=== PATIENT | male | born 1965 | race Caucasian/White ===

== ENCOUNTER 2016-12-01 18:01 | Emergency (ER) | payer SELFPAY ==
[2016-12-01] MEDS ORDERED: LIDOCAINE 2% VISCOUS SOLN 20 ML UDCUP PO ONE (18:45)
[2016-12-01] MEDS ORDERED: MAG HYDROX/AL HYDROX/SIMETH SUSP 30 ML UDCUP PO ONE (18:45)
[2016-12-01] MEDS ORDERED: METOCLOPRAMIDE HCL ORAL SOLN 10 MG/10 ML UDCUP PO ONE (18:45)
--- NOTE | 2016-12-01 18:52 | ER Document Report ---
ED Cardiac - General Stated Complaint: CHEST PAIN Time seen by provider: 18:48 Mode of Arrival: Medic Information source: Patient TRAVEL OUTSIDE OF THE [place] IN LAST 30 DAYS: No - HPI Patient complains to provider of: Chest pain Is the pain a: New problem Chest pain location: Other - Left anterior chest Quality of pain: Sharp, Stabbing Severity now: Mild Severity at worst: Moderate Pain level currently: 2 Chest pain precipitating factors: At Rest Positive cardiac history: No Associated symptoms: Shortness of breath Exacerbated by: Denies Relieved by: Nothing Similar symptoms previously: Yes - 2011 Recently seen / treated by doctor: No Notes: Patient is a 51-year-old male who presents to the emergency room complaining of left anterior chest wall pain that started around 1 PM while 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, he reports shortness of breath associated with it , but denies diaphoresis, no nausea or vomiting, no headache, no lightheadedness , he reports a history of a similar episode back in 2011, states he was seen at [facility] and had a cardiac catheterization that showed 30% blockage in one of his coronary arteries, he has not really followed up with anyone since that visit, does not currently take any medication on a daily basis, pain is intermittent, sharp and stabbing in nature, without any aggravating or alleviating symptoms, however when I was in the room and patient went to move as well as when he took a deep breath he reported his pain increased, he also was tender to palpate in the epigastric region on exam - Related Data Allergies/Adverse Reactions: No Known Allergies Allergy (Verified 01/06/14 23:51) Past Medical History - General Information source: Patient - Social History Smoking Status: Never Smoker Frequency of alcohol use: daily Drug Abuse: None Family History: Reviewed & Not Pertinent, Other - ASTHMA - Past Medical History Cardiac Medical History: Reports: Hx Hypertension Pulmonary Medical History: Reports: Hx Asthma, Hx COPD Psychiatric Medical History: Reports: Hx Bipolar Disorder, Hx Depression Past Surgical History: Reports: Hx Orthopedic Surgery - plate/screws in toe - Immunizations Hx Diphtheria, Pertussis, Tetanus Vaccination: Yes Review of Systems - Review of Systems Constitutional: No symptoms reported EENT: No symptoms reported Cardiovascular: See HPI Respiratory: See HPI Gastrointestinal: See HPI Genitourinary: No symptoms reported Male Genitourinary: No symptoms reported Musculoskeletal: No symptoms reported Skin: No symptoms reported Hematologic/Lymphatic: No symptoms reported Neurological/Psychological: No symptoms reported -: Yes All other systems reviewed and negative Physical Exam - Vital signs Vitals: Pulse Ox 99 12/01/16 18:10 Interpretation: Normal - General General appearance: Appears well, Alert - HEENT Head: Normocephalic, Atraumatic Eyes: Normal Pupils: PERRL - Respiratory Respiratory status: No respiratory distress Chest status: Nontender Breath sounds: Normal Chest palpation: Normal - Cardiovascular Rhythm: Regular Heart sounds: Normal auscultation Murmur: No - Abdominal Inspection: Normal Distension: No distension Bowel sounds: Normal Tenderness: Tender - Epigastric Organomegaly: No organomegaly - Back Back: Normal, Nontender - Extremities General upper extremity: Normal inspection, Nontender, Normal color, Normal ROM , Normal temperature General lower extremity: Normal inspection, Nontender, Normal color, Normal ROM , Normal temperature, Normal weight bearing. No: Emi's sign - Neurological Neuro grossly intact: Yes Cognition: Normal Orientation: AAOx4 [place] Coma Scale Eye Opening: Spontaneous Cedric Coma Scale Verbal: Oriented Cedric Coma Scale Motor: Obeys Commands [place] Coma Scale Total: 15 Speech: Normal Motor strength normal: LUE, RUE, LLE, RLE Sensory: Normal - Psychological Associated symptoms: Normal affect, Normal mood - Skin Skin Temperature: Warm Skin Moisture: Dry Skin Color: Normal Course - Re-evaluation Re-evalutation: 12/01/16 22:31 Patient resting comfortably on stretcher, reports feeling much better, symptoms are resolved after receiving GI cocktail, epigastric tenderness is resolved as well, cardiac enzymes 2 are negative, remainder of workup was unremarkable, patient will be discharged with instructions for follow-up, he was advised to take a daily baby aspirin, follow up with a primary care provider as well as her vice chair and return if symptoms worsen, patient acknowledges understanding and agreement with this plan - Vital Signs Vital signs: Temp Pulse Resp BP Pulse Ox 13 118/78 99 12/01/16 21:01 12/01/16 21:00 12/01/16 21:01 - Laboratory Result Diagrams: 12/01/16 18:20 12/01/16 18:20 Laboratory results interpreted by me: 12/01/16 18:20 Carbon Dioxide 20 L Calcium 8.3 L - Diagnostic Test Radiology reviewed: Image reviewed, Reports reviewed - EKG Interpretation by Me EKG shows normal: Sinus rhythm Rate: Normal Rhythm: NSR Discharge - Discharge Clinical Impression: Epigastric abdominal pain Chest pain Qualifiers: Chest pain type: unspecified Qualified Code(s): R07.9 - Chest pain, unspecified Condition: Stable Disposition: HOME, SELF-CARE Instructions: Abdominal Pain ([facility]), Chest Pain of Unclear Cause ([facility]), Family Physicians / Practices Additional Instructions: Follow up with your primary care provider and a vice chair in one to 2 days. Return to the emergency room immediately if symptoms worsen or any additional concerns. Referrals: HERNAN RUTLEDGE MD [ACTIVE STAFF] - Follow up as needed
[2016-12-01 19:46] LABS: ABSOLUTE BASOPHILS # (AUTO) 0.1 10^3/uL (0.0-0.2); ABSOLUTE EOSINOPHILS # (AUTO) 0.3 10^3/uL (0.0-0.6); ABSOLUTE LYMPHOCYTES (AUTO) 1.6 10^3/uL (0.5-4.7); ABSOLUTE MONOCYTES (AUTO) 0.6 10^3/uL (0.1-1.4); ABSOLUTE NEUT (AUTO) 2.7 10^3/uL (1.7-8.2); BASOPHILS % (AUTO) 1.8 % (0-2); EOSINOPHILS % (AUTO) 5.8 % (0-6); HEMATOCRIT 39.7 % (37.9-51.0); HEMOGLOBIN 13.7 g/dL (13.5-17.0); HGB HCT DIFFERENCE 1.4; MEAN CORPUSCULAR HEMOGLOBIN 31.2 pg (27.0-33.4); MEAN CORPUSCULAR HGB CONC 34.6 g/dL (32.0-36.0); MEAN CORPUSCULAR VOLUME 90 fl (80-97); RED CELL DISTRIBUTION WIDTH 13.1 % (11.5-14.0); SEGMENTED NEUTROPHILS % (AUTO) 51.4 % (42-78); WHITE BLOOD COUNT 5.2 10^3/uL (4.0-10.5)
[2016-12-01 19:49] LABS: ALANINE AMINOTRANSFERASE 21 U/L (21-72); ALBUMIN 3.8 g/dL (3.5-5.0); ALKALINE PHOSPHATASE 64 U/L (38-126); ANION GAP 16 (5-19); ASPARTATE AMINO TRANSFERASE 27 U/L (17-59); BILIRUBIN,DIRECT 0.2 mg/dL (0.0-0.4); BILIRUBIN,TOTAL 0.5 mg/dL (0.2-1.3); BLOOD UREA NITROGEN 11 mg/dL (7-20); CALCIUM 8.3 mg/dL (8.4-10.2); CARBON DIOXIDE 20 mmol/L (22-30); CHLORIDE 104 mmol/L (98-107); CREATINE KINASE 84 U/L (55-170); CREATININE RESULT 0.98 mg/dL (0.52-1.25); GLUCOSE 86 mg/dL (75-110); POTASSIUM 4.1 mmol/L (3.6-5.0); SODIUM 139.9 mmol/L (137-145); TOTAL PROTEIN 6.9 g/dL (6.3-8.2)
[2016-12-01 20:00] LABS: CREATINE KINASE MB 0.67 ng/mL (<4.55)
[2016-12-01 20:01] LABS: TROPONIN I < 0.012 ng/mL
[2016-12-01 22:21] LABS: CREATINE KINASE MB 0.61 ng/mL (<4.55)
[2016-12-01 22:27] LABS: TROPONIN I < 0.012 ng/mL
[2016-12-01 22:56] VITALS: BP 116/74
--- NOTE | 2016-12-02 22:51 | EKG REPORT ---
SEVERITY:- NORMAL ECG - SINUS RHYTHM : Confirmed by: Fatuma Kimble 02-Dec-2016 22:50:27
== END 2016-12-01 23:01 | disposition home or self-care (01) ==
LOC: ER 18:01
DX: R10.13 Epigastric pain (principal); R07.9 Chest pain, unspecified
CPT/HCPCS: 93005; 99285; 36415; 82553; 82550; 85025; 80053; 84484; 71020; 93010; J3490

== ENCOUNTER 2018-02-05 19:02 | Emergency (ER) | payer OTHER ==
[2018-02-05 19:19] VITALS: BP 133/74
--- NOTE | 2018-02-05 19:42 | ER Document Report ---
ED Extremity Problem, Lower - General Chief Complaint: Foot Pain Stated Complaint: FOOT PAIN Time Seen by Provider: 02/05/18 19:35 Mode of Arrival: Ambulatory Information source: Patient Notes: 52-year-old male presents to ED for complaint of pain to the left foot 1 week. He states he has a previous surgery in 2009 to this foot which is now caused his great toe to stick up in the air causing this irritation to his toe due to his work boots. He states at one point he had special boots for work but now he has to buy just plain work boots. TRAVEL OUTSIDE OF THE [place] IN LAST 30 DAYS: No - HPI Patient complains to provider of: Pain - Small open area to the top of the left foot just proximal to the great toe Location: Foot Occurred: Last week Where: Home Onset/Duration: Gradual Quality of pain: Burning Severity: Moderate Pain Level: 3 Context: Other - Small irritated open wound to left foot to the top of the foot just proximal to the great toe Recent injury: No Associated symptoms: Painful ambulation Exacerbated by: Nothing Relieved by: Nothing - Related Data Allergies/Adverse Reactions: No Known Allergies Allergy (Verified 02/05/18 19:05) Past Medical History - General Information source: Patient - Social History Smoking Status: Never Smoker Cigarette use (# per day): No Chew tobacco use (# tins/day): No Smoking Education Provided: No Family History: Reviewed & Not Pertinent, Other - ASTHMA Patient has suicidal ideation: No Patient has homicidal ideation: No - Past Medical History Cardiac Medical History: Reports: Hx Hypertension Pulmonary Medical History: Reports: Hx Asthma, Hx COPD EENT Medical History: Reports: None Neurological Medical History: Reports: None Endocrine Medical History: Reports: None Renal/ Medical History: Reports: None Malignancy Medical History: Reports None GI Medical History: Reports: None Musculoskeltal Medical History: Reports Hx Musculoskeletal Trauma Skin Medical History: Reports None Psychiatric Medical History: Reports: Hx Bipolar Disorder, Hx Depression Traumatic Medical History: Reports: None Infectious Medical History: Reports: None Past Surgical History: Reports: Hx Orthopedic Surgery - plate/screws in toe - Immunizations Hx Diphtheria, Pertussis, Tetanus Vaccination: Yes Review of Systems - Review of Systems Constitutional: No symptoms reported EENT: No symptoms reported Cardiovascular: No symptoms reported Respiratory: No symptoms reported Gastrointestinal: No symptoms reported Genitourinary: No symptoms reported Male Genitourinary: No symptoms reported Musculoskeletal: No symptoms reported Skin: Other - Open sore to the top of the left foot just proximal to the great toe Hematologic/Lymphatic: No symptoms reported Neurological/Psychological: No symptoms reported -: Yes All other systems reviewed and negative Physical Exam - Vital signs Vitals: Temp Pulse Resp BP Pulse Ox 98.6 F 96 20 133/74 H 96 02/05/18 19:17 02/05/18 19:17 02/05/18 19:17 02/05/18 19:17 02/05/18 19:17 Interpretation: Normal - General General appearance: Appears well, Alert - HEENT Head: Normocephalic, Atraumatic Eyes: Normal Pupils: PERRL - Respiratory Respiratory status: No respiratory distress Chest status: Nontender Breath sounds: Normal Chest palpation: Normal - Cardiovascular Rhythm: Regular Heart sounds: Normal auscultation Murmur: No - Abdominal Inspection: Normal Distension: No distension Bowel sounds: Normal Tenderness: Nontender Organomegaly: No organomegaly - Back Back: Normal, Nontender - Extremities General upper extremity: Normal inspection, Nontender, Normal color, Normal ROM , Normal temperature General lower extremity: Normal inspection, Nontender, Normal color, Normal ROM , Normal temperature, Normal weight bearing. No: Emi's sign - Neurological Neuro grossly intact: Yes Cognition: Normal Orientation: AAOx4 Cedric Coma Scale Eye Opening: Spontaneous [place] Coma Scale Verbal: Oriented Cedric Coma Scale Motor: Obeys Commands [place] Coma Scale Total: 15 Speech: Normal Motor strength normal: LUE, RUE, LLE, RLE Sensory: Normal - Psychological Associated symptoms: Normal affect, Normal mood - Skin Skin Temperature: Warm Skin Moisture: Dry Skin Color: Normal Location of irregularity: Extremities - Top of the left foot just proximal to the great toe small (1X2cm) open wound over his previous surgical scar minimal redness to the area Course - Re-evaluation Re-evalutation: 02/05/18 20:22 Chest x-ray with patient and patient was given a report of the x-ray to follow- up with his primary doctor. Patient was instructed in wound care to the small open sore to the top of his foot. Patient was instructed after the wound was he had to please put Band-Aids over the area to prevent further irritation to this thin skin. Patient verbalized understanding of instructions for skin care and instructions to follow-up with his primary doctor. - Vital Signs Vital signs: Temp Pulse Resp BP Pulse Ox 98.6 F 96 20 133/74 H 96 02/05/18 19:17 02/05/18 19:17 02/05/18 19:17 02/05/18 19:17 02/05/18 19:17 - Diagnostic Test Radiology reviewed: Image reviewed, Reports reviewed Discharge - Discharge Clinical Impression: Open wound top left foot Condition: Stable Disposition: HOME, SELF-CARE Instructions: Family Physicians / Practices Additional Instructions: He was seen today for small open wound to the top of the left foot just proximal to the great toe. We will need to clean this wound 3 times a day with the soap and water rinse well pat dry and apply the Bactroban ointment and a Band-Aid. After the wound has healed please cover the area with a Band-Aid to protect the skin from your boot Bactroban Ointment Bactroban is very effective against the germs that cause infection within the skin. It's useful for impetigo and other superficial infections. Deeper infections require antibiotics by mouth or by shot. Apply the medicine three times a day for one week, or longer if your doctor has advised it. Stop the medicine and call your doctor if you develop large blisters, severe itching, increasing pain, swelling, fever, or spreading redness. SOAP CLEANSING: Gently wash the wound daily using a mild soap (like Ivory, Phisoderm, Neutrogena). Use warm water, rubbing gently until all debris, ooze, and crusting have been washed from the wound. Allow to dry briefly (about 10 minutes) after cleaning. Repeat this cleansing at least three times a day for the first two days and then once or twice a day. FOLLOW-UP CARE: If you have been referred to a physician for follow-up care, call the physician s office for an appointment as you were instructed or within the next two days. If you experience worsening or a significant change in your symptoms, notify the physician immediately or return to the Emergency Department at any time for re-evaluation. Forms: Elevated Blood Pressure
[2018-02-05] MEDS ORDERED: MUPIROCIN 2% OINTMENT 22 GM TP ONE (19:44)
--- NOTE | 2018-02-05 20:09 | RADIOLOGY REPORT (SQ) ---
EXAM DESCRIPTION: FOOT LEFT COMPLETE COMPLETED DATE/TIME: 02/05/2018 7:55 pm REASON FOR STUDY: pain and ulcer to top of left foot at scar COMPARISON: None. NUMBER OF VIEWS: Three views. TECHNIQUE: AP, lateral and oblique radiographic images acquired of the left foot. LIMITATIONS: None. FINDINGS: MINERALIZATION: Normal. BONES: No acute fracture or dislocation. No worrisome bone lesions. No evidence of osteomyelitis. JOINTS: No effusions. SOFT TISSUES: No soft tissue swelling. No foreign body. OTHER: The patient's N arthrodesis of the 1st metatarsal-phalangeal joint. There is a dorsal plate s ecured by multiple screws. IMPRESSION: Surgical changes. No evidence of osteomyelitis. TECHNICAL DOCUMENTATION: JOB ID: [id number] [employer]- All Rights Reserved Reading location - IP/workstation name: [email or web address]
== END 2018-02-05 20:25 | disposition home or self-care (01) ==
LOC: ER 19:02
DX: S91.302A Unspecified open wound, left foot, initial encounter (principal); M79.672 Pain in left foot; X58.XXXA Exposure to other specified factors, initial encounter; Z98.890 Other specified postprocedural states; I10 Essential (primary) hypertension; J44.9 Chronic obstructive pulmonary disease, unspecified
CPT/HCPCS: 99283; 73630; J3490

== ENCOUNTER 2018-03-18 01:51 | Emergency (ER) | payer BC, OTHER ==
[2018-03-18] MEDS ORDERED: PREDNISONE 20 MG TABLET PO ONE (03:12)
--- NOTE | 2018-03-18 03:19 | ER Document Report ---
HPI - HPI Patient complains to provider of: skin rash, bee sting Pain Level: 3 Context: Patient is a 52-year-old male who comes to the emergency department for chief complaint of a rash that has been present for about 2 weeks, he also complains of being stung by a bee on the right forearm with some swelling earlier today. He denies any new rash otherwise, denies difficulty swallowing or breathing, denies swelling of any other areas. He has not had a similar rash in the past. 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 He states the rash is very itchy and keeps him up at night. Rashes over both arms, legs, over the buttocks, and also slightly over the trunk and back. He denies any fever or chills, nausea vomiting, or any other symptoms. He is not on any medications. His tetanus is up-to-date reportedly. - REPRODUCTIVE Reproductive: DENIES: : Past Medical History - General Information source: Patient - Social History Smoking Status: Current Every Day Smoker Drug Abuse: None Lives with: Family Family History: Reviewed & Not Pertinent, Other - ASTHMA - Past Medical History Cardiac Medical History: Reports: Hx Hypertension Pulmonary Medical History: Reports: Hx Asthma, Hx COPD Renal/ Medical History: Denies: Hx Peritoneal Dialysis Musculoskeletal Medical History: Reports Hx Musculoskeletal Trauma Psychiatric Medical History: Reports: Hx Bipolar Disorder, Hx Depression Past Surgical History: Reports: Hx Orthopedic Surgery - plate/screws in toe - Immunizations Hx Diphtheria, Pertussis, Tetanus Vaccination: Yes Vertical Provider Document - CONSTITUTIONAL General Appearance: WD/WN, No Apparent Distress - INFECTION CONTROL TRAVEL OUTSIDE OF THE [place] IN LAST 30 DAYS: No - HEENT HEENT: Atraumatic, Normocephalic - NECK Neck: Normal Inspection - RESPIRATORY Respiratory: Breath Sounds Normal, No Respiratory Distress - CARDIOVASCULAR Cardiovascular: Regular Rate, Regular Rhythm - GI/ABDOMEN Gastrointestinal: Abdomen Soft, Abdomen Non-Tender - BACK Back: Normal Inspection - MUSCULOSKELETAL/EXTREMETIES Musculoskeletal/Extremeties: Tender - There is minimal soft tissue swelling and mild erythema over the right proximal forearm over the extensor aspect, no severe erythema, tenderness, abnormal heat, bleeding, induration, fluctuance. Normal distal neurovascular exam. Normal range of motion of the wrist and elbow. - NEURO Level of Consciousness: Awake, Alert, Appropriate - DERM Integumentary: Warm, Dry, Rash - There are multiple excoriated areas which appear to have been previous vesicles with some dryness around the area over the arms, legs, back, trunk, and buttocks. None on the face. No bulla, pustules, induration, fluctuance. Course - Re-evaluation Re-evalutation: Mild soft tissue swelling associated with the bee sting. No evidence of anaphylaxis. No neurovascular deficits. Patient does have a widespread rash which is suggestive of eczema, excoriated very much but still no evidence of cellulitis on my examination. No evidence of necrotizing fasciitis either. No areas are painful. Patient continues to report itchiness. Denying any possibility of that being an insect bite. Appears to be some type of eczema but this is not definite. No evidence of secondary infection at this time. Discussed with patient. Discussed dermatology follow-up, patient will be treated with an extended course of prednisone, discussed return precautions, patient states understanding and agreement with plan. - Vital Signs Vital signs: Temp Pulse Resp BP Pulse Ox 98.3 F 74 16 146/77 H 100 03/18/18 01:55 03/18/18 01:55 03/18/18 01:55 03/18/18 01:55 03/18/18 01:55 Discharge - Discharge Clinical Impression: Skin rash Bee sting Qualifiers: Encounter type: initial encounter Injury intent: accidental or unintentional Qualified Code(s): T63.441A - Toxic effect of venom of bees, accidental ( unintentional), initial encounter Condition: Stable Disposition: HOME, SELF-CARE Additional Instructions: Your widespread rash is most consistent with an autoimmune reaction to something. This could be insect bites but less likely. Take prescribed medications as directed. Try not to scratch, if he scratched open skin clean the area with soap and water and then apply topical antibiotic. Follow-up with dermatology referral if symptoms continue. Return if you worsen including developing or spreading redness, fever, severe swelling, or any other concerning or worsening symptoms. Prescriptions: Cetirizine HCl [All Day Allergy] 10 mg PO DAILY #30 tablet Prednisone 10 mg PO ASDIR PRN #49 tablet PRN Reason: Referrals: DAVE KAUR DO [ACTIVE STAFF] - Follow up as needed
[2018-03-18 03:38] VITALS: BP 129/75
== END 2018-03-18 03:34 | disposition home or self-care (01) ==
LOC: ER 01:51
DX: R21 Rash and other nonspecific skin eruption (principal); L29.8 Other pruritus; T63.441A Toxic effect of venom of bees, accidental (unintentional), initial encounter; F17.200 Nicotine dependence, unspecified, uncomplicated; I10 Essential (primary) hypertension; J44.9 Chronic obstructive pulmonary disease, unspecified
CPT/HCPCS: 99282; J7512

== ENCOUNTER 2018-07-10 21:22 | Observation (INO) | payer OTHER ==
[2018-07-10 21:59] LABS: ABSOLUTE EOSINOPHILS # (AUTO) 0.4 10^3/uL (0.0-0.6); ABSOLUTE LYMPHOCYTES (AUTO) 3.1 10^3/uL (0.5-4.7); ABSOLUTE MONOCYTES (AUTO) 0.8 10^3/uL (0.1-1.4); ABSOLUTE NEUT (AUTO) 2.6 10^3/uL (1.7-8.2); BASOPHILS % (AUTO) 0.6 % (0-2); EOSINOPHILS % (AUTO) 5.8 % (0-6); HEMATOCRIT 43.3 % (37.9-51.0); HEMOGLOBIN 15.3 g/dL (13.5-17.0); LYMPHOCYTES % (AUTO) 44.4 % (13-45); MEAN CORPUSCULAR HEMOGLOBIN 31.1 pg (27.0-33.4); MEAN CORPUSCULAR HGB CONC 35.3 g/dL (32.0-36.0); MEAN CORPUSCULAR VOLUME 88 fl (80-97); MONOCYTES % (AUTO) 11.6 % (3-13); PLATELET COUNT 208 10^3/uL (150-450); RED CELL DISTRIBUTION WIDTH 12.9 % (11.5-14.0); SEGMENTED NEUTROPHILS % (AUTO) 37.6 % (42-78); TOTAL CELLS COUNTED % (AUTO) 100 %
[2018-07-10] MEDS ORDERED: MORPHINE SULFATE 10 MG/ML INJ IV ONE (22:05)
[2018-07-10 22:13] LABS: ALANINE AMINOTRANSFERASE 23 U/L (21-72); ALBUMIN 4.2 g/dL (3.5-5.0); ALKALINE PHOSPHATASE 100 U/L (38-126); ANION GAP 14 (5-19); ASPARTATE AMINO TRANSFERASE 27 U/L (17-59); BILIRUBIN,DIRECT 0.3 mg/dL (0.0-0.4); BILIRUBIN,TOTAL 0.9 mg/dL (0.2-1.3); BLOOD UREA NITROGEN 7 mg/dL (7-20); CALCIUM 9.4 mg/dL (8.4-10.2); CARBON DIOXIDE 26 mmol/L (22-30); CHLORIDE 100 mmol/L (98-107); GLUCOSE 97 mg/dL (75-110); LIPASE 40.3 U/L (23-300); POTASSIUM 4.3 mmol/L (3.6-5.0); SODIUM 139.5 mmol/L (137-145); TOTAL PROTEIN 7.9 g/dL (6.3-8.2)
--- NOTE | 2018-07-10 22:35 | ER Document Report ---
ED General - General Chief Complaint: Abdominal Pain Stated Complaint: ABDOMINAL PAIN Time Seen by Provider: 07/10/18 21:57 Notes: Patient is a pleasant 52-year-old male who presents with complaint of abdominal pain. Pain is in the left lower quadrant. It does radiate some into the flank. No fevers. No vomiting. No diarrhea. Pain started this morning. Never had anything like this before. He does not take any medications. Does not see a doctor on a regular basis. He is a non-smoker. He does drink alcohol on a daily basis. He denies ever having alcohol withdrawal. TRAVEL OUTSIDE OF THE [place] IN LAST 30 DAYS: No - Related Data Allergies/Adverse Reactions: No Known Allergies Allergy (Verified 02/05/18 19:05) Past Medical History - Social History Smoking Status: Never Smoker Frequency of alcohol use: Heavy Drug Abuse: None Family History: Reviewed & Not Pertinent, Other - ASTHMA - Past Medical History Cardiac Medical History: Reports: Hx Hypertension Pulmonary Medical History: Reports: Hx Asthma, Hx COPD Renal/ Medical History: Denies: Hx Peritoneal Dialysis Musculoskeletal Medical History: Reports Hx Musculoskeletal Trauma Psychiatric Medical History: Reports: Hx Bipolar Disorder, Hx Depression Past Surgical History: Reports: Hx Orthopedic Surgery - plate/screws in toe - Immunizations Hx Diphtheria, Pertussis, Tetanus Vaccination: Yes Review of Systems - Review of Systems Notes: My Normal Review Basic REVIEW OF SYSTEMS: CONSTITUTIONAL : Denies fever, chills, or sweats. Denies recent illness. CARDIOVASCULAR: Denies chest pain. RESPIRATORY: Denies cough, cold, or chest congestion. Denies shortness of breath, difficulty breathing, or wheezing. GASTROINTESTINAL: Left lower quadrant abdominal pain.. Denies nausea, vomiting , or diarrhea. GENITOURINARY: Denies difficulty urinating, painful urination, burning, frequency, or blood in urine. MUSCULOSKELETAL: Denies neck or back pain or joint pain or swelling. SKIN: Denies rash or skin lesions. NEUROLOGICAL: Denies altered mental status or loss of consciousness. Denies headache. Denies weakness or paralysis or loss of use of either side. Denies problems with gait or speech. Denies sensory or motor loss. ALL OTHER SYSTEMS REVIEWED AND NEGATIVE. Physical Exam - Vital signs Vitals: Temp Pulse Resp BP Pulse Ox 97.8 F 91 20 134/87 H 97 07/10/18 21:27 07/10/18 21:27 07/10/18 21:27 07/10/18 21:27 07/10/18 21:27 - Notes Notes: General Appearance: Well nourished, alert, cooperative, no acute distress, mild to moderate abdominal discomfort. Vitals: reviewed, See vital signs table. Head: no swelling or tenderness to the head Eyes: PERRL, EOMI, Conjuctiva clear Mouth: No decreasd moisture Throat: No tonsillar inflammation, No airway obstruction, No lymphadenopathy Neck: Supple, no neck tenderness, No thyromegaly Lungs: No wheezing, No rales, No rhonci, No accessory muscle use, good air exchange bilaterally. Heart: Normal rate, Regular rythm, No murmur, no rub Abdomen: Normal BS, soft, No rigidity, moderate left lower quadrant tenderness. Left lower quadrant of abdomen is nontender. Patient has worsening pain when he tries to lay down. No rebound. Mild guarding to the left lower quadrant. Extremities: good pulses in all extremities, no swelling or tenderness in the extremities, no edema. Skin: warm, dry, appropriate color, no rash Neuro: speech clear, oriented x 3, normal affect, responds appropriately to questions. Course - Re-evaluation Re-evalutation: 07/11/18 01:01 Patient is a very large adrenal mass in the left side. I did speak with Dr. Yoo, oncologist, who said being patient has pain and is difficult to lay back due to pain he agrees with admission to admit patient for pain control and to help stage the patient's tumor and begin treatment. Patient is agreeable with this plan. I did speak with Dr. Lund, hospitalist, who agrees to evaluate the patient for admission. Dictation of this chart was performed using voice recognition software; therefore, there may be some unintended grammatical errors. - Vital Signs Vital signs: Temp Pulse Resp BP Pulse Ox 97.8 F 91 20 134/87 H 97 07/10/18 21:27 07/10/18 21:27 07/10/18 21:27 07/10/18 21:27 07/10/18 21:27 - Laboratory Result Diagrams: 07/10/18 21:45 07/10/18 21:45 Laboratory results interpreted by me: 07/10/18 21:45 Seg Neutrophils % 37.6 L Discharge - Discharge Clinical Impression: Adrenal mass, left Condition: Stable Disposition: ADMITTED OBSERVATION Admitting Provider: Hospitalist Unit Admitted: Medical Floor
[2018-07-10 22:53] LABS: APPEARANCE,URINE CLEAR; BILIRUBIN,URINE NEGATIVE (NEGATIVE); COLOR,URINE STRAW; GLUCOSE, URINE NEGATIVE (NEGATIVE); KETONES,URINE NEGATIVE (NEGATIVE); LEUKOCYTE ESTERASE,URINE NEGATIVE (NEGATIVE); NITRITE,URINE NEGATIVE (NEGATIVE); PROTEIN,URINE NEGATIVE (NEGATIVE); URINE SPECIFIC GRAVITY 1.002; UROBILINOGEN,URINE NEGATIVE mg/dL (<2.0)
[2018-07-10] MEDS ORDERED: NORMAL SALINE 1000 ML 1,000 ML IV ONE (23:21)
--- NOTE | 2018-07-11 00:34 | RADIOLOGY REPORT (SQ) ---
CT ABDOMEN PELVIS WITH IV CONTRAST HISTORY: LLQ abdominal pain. COMPARISON: None. TECHNIQUE: CT scan of the abdomen and pelvis with IV contrast. This exam was performed according to our departmental dose-optimization program, which includes automated exposure control, adjustment of the mA and/or kV according to patient size and/or use of iterative reconstruction technique. FINDINGS: The lung bases are clear. No pleural or pericardial effusions. The spleen is enlarged measuring 17.3 cm. The liver and pancreas are unremarkable. No gallstones by CT criteria. No biliary ductal dilatation is seen. There is a 12.9 x 7.1 x 12.3 cm well-circumscribed predominantly fatty lesion with internal areas of stranding and soft tissue in the region of the left adrenal gland. There is a similar appearing lesion measuring 3.4 x 2.4 cm arising from the right adrenal gland. The right kidney is unremarkable. The left kidney is inferiorly displaced by the aforementioned suprarenal mass. No ureteral or bladder stones are seen. The pelvic organs are unremarkable. The distal thoracic esophagus and stomach are unremarkable. No small bowel obstruction. The appendix is not visualized. No pericolonic inflammatory stranding is seen. There are prominent bilateral external iliac chain lymph nodes, measuring up to 1.9 cm in short axis. The abdominal aorta and IVC are normal caliber. There are degenerative changes of the spine. IMPRESSION: 1. Giant left-sided adrenal mass measuring up to 13 cm, containing predominantly fat with internal stranding and soft tissue components. This may represent either a very large adrenal myelolipoma versus a retroperitoneal liposarcoma. Additionally, there is a similar appearing mass but much smaller in the right adrenal gland (measuring 3.4 cm). Given the bilaterality, this favors multiple adrenal myelolipomas, although tissue pathology is suggested for confirmation. 2. Splenomegaly along with prominent bilateral iliac chain lymph nodes, which is nonspecific but may represent sequela of infection or inflammation of unknown etiology.
[2018-07-11] MEDS ORDERED: TRAMADOL HCL 50 MG TABLET PO PRN (00:55)
[2018-07-11] MEDS ORDERED: MAG HYDROX/AL HYDROX/SIMETH SUSP 30 ML UDCUP PO PRN (00:56)
[2018-07-11] MEDS ORDERED: ACETAMINOPHEN 325 MG TABLET PO PRN (00:56)
[2018-07-11 02:27] LABS: INTERNATIONAL RATION (INR) 0.88; PROTHROMBIN TIME 12.4 SEC (11.4-15.4)
[2018-07-11] MEDS: HEPARIN SOD (PORCINE) 5,000 UNIT/ML 1 ML SYRINGE SUBCUT SCH ×3 (05:08→22:28)
[2018-07-11] MEDS ORDERED: LORAZEPAM 1 MG TABLET PO PRN (05:45)
[2018-07-11] MEDS ORDERED: HYDROXYZINE HCL 10 MG TABLET PO PRN (06:00)
--- NOTE | 2018-07-11 06:00 | PDOC H&P ---
History of Present Illness Admission Date/PCP: 07/11/18 01:37 Patient complains of: Left upper quadrant abdominal and flank pain History of Present Illness: MELITA SETH is a 52 year old male with past medical history of alcohol dependence who presents with 24 hours of left upper quadrant and flank pain. Workup reveals 13 cm left-sided adrenal mass. His pain is not associated with palpitations, nausea vomiting diaphoresis or chest pain. He denies weight loss , episodes insomnia, tachycardia, of heat intolerance or diarrhea. He complains of diffuse itching. Denies exposure to carcinogens, denies family history of malignancy. He is referred to the hospitalist for admission. Past Medical History Cardiac Medical History: Reports: Hypertension Pulmonary Medical History: Reports: Asthma Psychiatric Medical History: Reports: Bipolar Disorder, Depression Past Surgical History Past Surgical History: Reports: Orthopedic Surgery - plate/screws in toe Social History Information Source: Patient, [facility] Records Smoking Status: Never Smoker Frequency of Alcohol Use: Heavy - Denies history of blackout, seizure or withdrawal symptoms Hx Recreational Drug Use: No Drugs: None Hx Prescription Drug Abuse: No - Advance Directive Resuscitation Status: Full Code Family History Family History: Other - ASTHMA Parental Family History Reviewed: Yes Children Family History Reviewed: Yes Sibling(s) Family History Reviewed.: Yes Medication/Allergy Home Medications: Hydrocodone/Acetaminophen [[place] 5-325 Tablet] 1 each PO Q4 PRN #20 tablet 01/07 Cyclobenzaprine HCl [Flexeril 10 Mg Tablet] 10 mg PO TIDP PRN #20 tablet Tramadol HCl [Ultram 50 mg Tablet] 50 mg PO ASDIR PRN #20 tablet 07/25/14 Cetirizine HCl [All Day Allergy] 10 mg PO DAILY #30 tablet 03/18/18 Prednisone 10 mg PO ASDIR PRN #49 tablet 03/18/18 Allergies/Adverse Reactions: No Known Allergies Allergy (Verified 02/05/18 19:05) Review of Systems Constitutional: PRESENT: as per HPI. ABSENT: anorexia, chills, fatigue, fever(s ), headache(s), night sweats, weakness Eyes: ABSENT: visual disturbances Ears: ABSENT: hearing changes Cardiovascular: ABSENT: chest pain, dyspnea on exertion, edema, orthropnea, palpitations Respiratory: ABSENT: cough, hemoptysis Gastrointestinal: ABSENT: abdominal pain, constipation, diarrhea, hematemesis, hematochezia, nausea, vomiting Genitourinary: ABSENT: dysuria, hematuria Musculoskeletal: ABSENT: joint swelling Integumentary: PRESENT: as per HPI, erythema, lesions, pruritus, rash Neurological: ABSENT: abnormal gait, abnormal speech, confusion, dizziness, focal weakness, syncope Psychiatric: ABSENT: anxiety, depression, homidical ideation, suicidal ideation Endocrine: ABSENT: cold intolerance, heat intolerance, polydipsia, polyuria Hematologic/Lymphatic: ABSENT: easy bleeding, easy bruising Physical Exam Vital Signs: Temp Pulse Resp BP Pulse Ox 97.9 F 88 18 142/74 H 98 07/11/18 04:42 07/11/18 04:42 07/11/18 04:42 07/11/18 04:42 07/11/18 04:42 Intake & Output 07/09/18 07/10/18 07/11/18 11:59 11:59 11:59 Intake Total 1000 Balance 1000 Weight 54.6 kg General appearance: PRESENT: no acute distress, well-developed, well-nourished Head exam: PRESENT: atraumatic, normocephalic Eye exam: PRESENT: conjunctiva pink, EOMI, PERRLA. ABSENT: scleral icterus Ear exam: PRESENT: normal external ear exam Mouth exam: PRESENT: moist, tongue midline Neck exam: ABSENT: carotid bruit, JVD, lymphadenopathy, thyromegaly Respiratory exam: PRESENT: clear to auscultation ramila. ABSENT: rales, rhonchi, wheezes Cardiovascular exam: PRESENT: RRR. ABSENT: diastolic murmur, rubs, systolic murmur Pulses: PRESENT: normal dorsalis pedis pul Vascular exam: PRESENT: normal capillary refill GI/Abdominal exam: PRESENT: normal bowel sounds, soft, tenderness - Tender left upper quadrant mass. ABSENT: ascites, diminished bowel sounds, distended, guarding, mass, organolmegaly, rebound Rectal exam: PRESENT: deferred Extremities exam: PRESENT: full ROM. ABSENT: calf tenderness, clubbing, pedal edema Neurological exam: PRESENT: alert, awake, oriented to person, oriented to place , oriented to time, oriented to situation, CN II-XII grossly intact. ABSENT: motor sensory deficit Psychiatric exam: PRESENT: appropriate affect, normal mood. ABSENT: homicidal ideation, suicidal ideation Skin exam: PRESENT: dry, erythema, intact, rash - Patient suffers from pruritus with excoriation of the abdominal wall, back arms and legs, warm. ABSENT: cyanosis Results Impressions: Abdomen/Pelvis CT 07/10/18 23:20 IMPRESSION: 1. Giant left-sided adrenal mass measuring up to 13 cm, containing predominantly fat with internal stranding and soft tissue components. This may represent either a very large adrenal myelolipoma versus a retroperitoneal liposarcoma. Additionally, there is a similar appearing mass but much smaller in the right adrenal gland (measuring 3.4 cm). Given the bilaterality, this favors multiple adrenal myelolipomas, although tissue pathology is suggested for confirmation. 2. Splenomegaly along with prominent bilateral iliac chain lymph nodes, which is nonspecific but may represent sequela of infection or inflammation of unknown etiology. Assessment & Plan - Diagnosis (1) Adrenal mass, left Is this a current diagnosis for this admission?: Yes Plan: Follow-up cortisol, urine metanephrines, oncology consult (2) Pruritus Is this a current diagnosis for this admission?: Yes Plan: Likely secondary to #1, symptomatic management (3) Alcohol dependence Is this a current diagnosis for this admission?: Yes Plan: Thiamine, folate and Ativan as needed - Time Time Spent: 30 to 50 Minutes - Inpatient Certification Medical Necessity: Need Close Monitoring Due to Risk of Patient Decompensation
[2018-07-11] MEDS ORDERED: HYDROCODONE/ACETAMINOPHEN 5-325 MG TABLET ONE (08:11)
--- NOTE | 2018-07-11 08:43 | PDOC CONSULTATION ---
Consultation Consult Date: 07/11/18 Attending physician:: CHARLES PEREIRA Consult reason:: Newly noted adrenal lesions History of Present Illness Admission Date/PCP: 07/11/18 01:37 Patient complains of: Severe left-sided abdominal pain History of Present Illness: MELITA SETH is a 52 year old male with known history of asthma and hypertension but generally has been fairly healthy, comes in with a 3-day history of increasing left upper quadrant pain, extending to the left flank. It became severe enough that he came to the ED for pain control. Of note he also was having a 3-week history of a remitting relapsing rash, on the skin that has resulted in recurrent open sores. He denies any weight loss, no fevers chills night sweats, he is not having any bowel changes, no hematuria or changes in urination. He is not having pain anywhere else. He had CT of the abdomen and pelvis done with IV contrast only, this indicated large bilateral adrenal lesions, the left was 12 x 7 x 12 cm, the right was 3 x 2 cm, there also is bilateral external iliac adenopathy up to 1.9 cm, there is also splenomegaly. Of note he does have alcohol history, he drinks 4-5 beers per day. However on the imaging, the liver looks normal. Past Medical History Cardiac Medical History: Reports: Hypertension Pulmonary Medical History: Reports: Asthma, Chronic Obstructive Pulmonary Disease (COPD) Psychiatric Medical History: Reports: Bipolar Disorder, Depression Past Surgical History Past Surgical History: Reports: Orthopedic Surgery - plate/screws in toe Social History Smoking Status: Never Smoker Frequency of Alcohol Use: Heavy - Denies history of blackout, seizure or withdrawal symptoms Hx Recreational Drug Use: No Drugs: None Hx Prescription Drug Abuse: No - Advance Directive Resuscitation Status: Full Code Family History Family History: Other - ASTHMA, no familial cancer syndromes Parental Family History Reviewed: Yes Children Family History Reviewed: Yes Sibling(s) Family History Reviewed.: Yes Medication/Allergy Allergies/Adverse Reactions: No Known Allergies Allergy (Verified 02/05/18 19:05) Review of Systems Constitutional: PRESENT: weakness Ears: ABSENT: hearing changes Cardiovascular: ABSENT: chest pain, dyspnea on exertion, edema, orthropnea, palpitations Gastrointestinal: PRESENT: abdominal pain Musculoskeletal: ABSENT: joint swelling Neurological: ABSENT: abnormal gait, abnormal speech, confusion, dizziness, focal weakness, syncope Psychiatric: ABSENT: anxiety, depression, homidical ideation, suicidal ideation Endocrine: ABSENT: cold intolerance, heat intolerance, polydipsia, polyuria Hematologic/Lymphatic: ABSENT: easy bleeding, easy bruising Physical Exam Vital Signs: Temp Pulse Resp BP Pulse Ox 98.0 F 77 12 120/57 L 99 07/11/18 07:38 07/11/18 07:38 07/11/18 07:38 07/11/18 07:38 07/11/18 07:38 Intake & Output 07/10/18 07/11/18 07/12/18 06:59 06:59 06:59 Intake Total 1000 Balance 1000 Weight 53.6 kg General appearance: PRESENT: no acute distress, well-developed, well-nourished Head exam: PRESENT: atraumatic, normocephalic Eye exam: PRESENT: conjunctiva pink, EOMI, PERRLA. ABSENT: scleral icterus Ear exam: PRESENT: normal external ear exam Mouth exam: PRESENT: moist, tongue midline Neck exam: ABSENT: carotid bruit, JVD, lymphadenopathy, thyromegaly Respiratory exam: PRESENT: clear to auscultation ramila. ABSENT: rales, rhonchi, wheezes Cardiovascular exam: PRESENT: RRR. ABSENT: diastolic murmur, rubs, systolic murmur Pulses: PRESENT: normal dorsalis pedis pul Vascular exam: PRESENT: normal capillary refill GI/Abdominal exam: PRESENT: normal bowel sounds, soft. ABSENT: distended, guarding, mass, organolmegaly, rebound, tenderness Rectal exam: PRESENT: deferred Extremities exam: PRESENT: full ROM. ABSENT: calf tenderness, clubbing, pedal edema Neurological exam: PRESENT: alert, awake, oriented to person, oriented to place , oriented to time, oriented to situation, CN II-XII grossly intact. ABSENT: motor sensory deficit Psychiatric exam: PRESENT: appropriate affect, normal mood. ABSENT: homicidal ideation, suicidal ideation Skin exam: PRESENT: dry, intact, warm. ABSENT: cyanosis, rash Results Impressions: Abdomen/Pelvis CT 07/10/18 23:20 IMPRESSION: 1. Giant left-sided adrenal mass measuring up to 13 cm, containing predominantly fat with internal stranding and soft tissue components. This may represent either a very large adrenal myelolipoma versus a retroperitoneal liposarcoma. Additionally, there is a similar appearing mass but much smaller in the right adrenal gland (measuring 3.4 cm). Given the bilaterality, this favors multiple adrenal myelolipomas, although tissue pathology is suggested for confirmation. 2. Splenomegaly along with prominent bilateral iliac chain lymph nodes, which is nonspecific but may represent sequela of infection or inflammation of unknown etiology. 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 Simpson, she does not feel that these are carcinoma like her lesions, there is appropriate fat noted in the adrenal glands, plan for CT of the chest with IV contrast as well as bone scan today. If there are no lesions noted that are more peripheral that would point to a metastatic type disease to the adrenal gland, then we will plan for PET/CT as an outpatient. Radiology here would prefer not to attempt adrenal biopsy because lipomas tend to have high risk of bleeding per radiology. (2) Neoplasm related pain Is this a current diagnosis for this admission?: Yes Plan: He does have significant pain in the left side, unsure if that is because of the enlarged left adrenal or splenomegaly both which can cause pain in that area. Regardless I will start him on oral pain medication with [place] today, if pain is well controlled over the next [address] imaging does not show anything that needs to be biopsied inpatient, then we will plan for discharge probably tomorrow with follow-up as an outpatient for PET/CT. - Time Time Spent: Greater than 70 Minutes - Inpatient Certification Based on my medical assessment, after consideration of the patient's comorbidities, presenting symptoms, or acuity I expect that the services needed warrant INPATIENT care.: Yes I certify that my determination is in accordance with my understanding of Medicare's requirements for reasonable and necessary INPATIENT services [42 CFR 412.3e].: Yes Medical Necessity: Need for Pain Control, Need for Surgery
[2018-07-11] MEDS: THIAMINE HCL 100 MG, FOLIC ACID 1 MG in NORMAL SALINE 250 ML IV SCH (09:48)
[2018-07-11] MEDS: DOCUSATE SODIUM 100 MG CAPSULE PO SCH ×2 (09:48→17:57)
--- NOTE | 2018-07-11 12:59 | RADIOLOGY REPORT (SQ) ---
EXAM DESCRIPTION: NM WHOLE BODY BONE SCAN COMPLETED DATE/TIME: 07/11/2018 12:39 pm REASON FOR STUDY: BONE METS COMPARISON: CT abdomen pelvis 07/10/2018 RADIONUCLIDE AND DOSE: 19.8 millicuries Tc99m MDP. The route of agent administration: Intravenous. ADDITIONAL DRUGS AND DOSES: None. TECHNIQUE: Routine delayed images at 3 hours post radionuclide injection acquired of the bony skelet on including anterior and posterior whole-body projections and additional focused images as needed. LIMITATIONS: None. FINDINGS: BONES: Normal visualization without areas of photopenia or increased bony uptake of radiop harmaceutical. KIDNEYS: Symmetric excretion without obstruction. OTHER: No other significant finding. IMPRESSION: NORMAL BONE SCAN. COMMENT: Quality measure 147: Current bone scan is compared with any available plain radiographs, p rior bone scans, and CT/MRI. TECHNICAL DOCUMENTATION: JOB ID: [id number] [employer]- All Rights Reserved Reading location - IP/workstation name: [email or web address]
[2018-07-11] MEDS: HYDROCODONE/ACETAMINOPHEN 5-325 MG TABLET PO PRN ×2 (14:31→20:27)
--- NOTE | 2018-07-11 16:28 | Progress Note ---
Provider Note Provider Note: patient seen on rounds this morning. admitted after midnight- please see H&P for full A&P i appreciate consult by Dr Burton, oncologist- he has ordered CT chest and bone scan to r/o malignancy. patient continues to have left flank pain- pain medications have been added to his regimen- will follow up in AM
[2018-07-12] MEDS: HYDROCODONE/ACETAMINOPHEN 5-325 MG TABLET PO PRN ×2 (03:58→11:52)
[2018-07-12] MEDS: HEPARIN SOD (PORCINE) 5,000 UNIT/ML 1 ML SYRINGE SUBCUT SCH (05:09)
--- NOTE | 2018-07-12 05:43 | RADIOLOGY REPORT (SQ) ---
CLINICAL HISTORY: LUNG CANCER COMPARISON: None. TECHNIQUE: CT CHEST WITH IV CONTRAST on 07/12/2018 5:00 AM [facility]. MIPS reconstructions were generated. This exam was performed according to our departmental dose-optimization program, which includes automated exposure control, adjustment of the mA and/or kV according to patient size and/or use of iterative reconstruction technique. MIP images were generated. FINDINGS: Thoracic aorta is normal in course and caliber without aneurysm or dissection. Pulmonary arteries are adequately opacified without acute or chronic filling defects. The heart is normal in size. There is no pericardial effusion. There are several borderline mediastinal lymph nodes with an enlarged subcarinal lymph node measuring 1.4 cm. There are multiple bilateral axillary lymph nodes measuring up to 1.5 cm on the right and 1.2 cm on the left. There is no pleural effusion, pleural thickening or pneumothorax. Central airways are patent. There is right basilar atelectasis. There is minimal left basilar atelectasis. In the upper abdomen, again noted are large fatty masses within the adrenal glands. There are no acute osseous findings. No suspicious bony lesions. IMPRESSION: Bilateral axillary as well as to a lesser degree central mediastinal adenopathy. Bilateral fat-containing adrenal masses.
[2018-07-12] MEDS: THIAMINE HCL 100 MG, FOLIC ACID 1 MG in NORMAL SALINE 250 ML IV SCH (09:19)
[2018-07-12] MEDS: DOCUSATE SODIUM 100 MG CAPSULE PO SCH (09:19)
--- NOTE | 2018-07-12 09:48 | PDOC PROGRESS REPORT ---
Subjective Progress Note for:: 07/12/18 Subjective:: Reviewed CT imaging, bone scan, bone scan is negative for disease, CT of the chest indicates nonpathologically enlarged mediastinal adenopathy, there is bilateral axillary adenopathy however, but not palpable at present. Reason For Visit: LEFT FLANK PAIN,LARGE ADRENAL MASS Physical Exam Vital Signs: Temp Pulse Resp BP Pulse Ox 97.9 F 77 14 120/54 L 100 07/12/18 07:38 07/12/18 07:38 07/12/18 07:38 07/12/18 07:38 07/12/18 07:38 Intake & Output 07/11/18 07/12/18 07/13/18 06:59 06:59 06:59 Intake Total 1000 1351.2 Output Total 975 Balance 1000 376.2 Weight 53.6 kg 53.1 kg General appearance: PRESENT: no acute distress, well-developed, well-nourished Head exam: PRESENT: atraumatic, normocephalic Eye exam: PRESENT: conjunctiva pink, EOMI, PERRLA. ABSENT: scleral icterus Ear exam: PRESENT: normal external ear exam Mouth exam: PRESENT: moist, tongue midline Neck exam: ABSENT: carotid bruit, JVD, lymphadenopathy, thyromegaly Respiratory exam: PRESENT: clear to auscultation ramila. ABSENT: rales, rhonchi, wheezes Cardiovascular exam: PRESENT: RRR. ABSENT: diastolic murmur, rubs, systolic murmur Pulses: PRESENT: normal dorsalis pedis pul Vascular exam: PRESENT: normal capillary refill GI/Abdominal exam: PRESENT: normal bowel sounds, soft. ABSENT: distended, guarding, mass, organolmegaly, rebound, tenderness Rectal exam: PRESENT: deferred Extremities exam: PRESENT: full ROM. ABSENT: calf tenderness, clubbing, pedal edema Neurological exam: PRESENT: alert, awake, oriented to person, oriented to place , oriented to time, oriented to situation, CN II-XII grossly intact. ABSENT: motor sensory deficit Psychiatric exam: PRESENT: appropriate affect, normal mood. ABSENT: homicidal ideation, suicidal ideation Skin exam: PRESENT: dry, intact, warm. ABSENT: cyanosis, rash Results Impressions: Abdomen/Pelvis CT 07/10/18 23:20 IMPRESSION: 1. Giant left-sided adrenal mass measuring up to 13 cm, containing predominantly fat with internal stranding and soft tissue components. This may represent either a very large adrenal myelolipoma versus a retroperitoneal liposarcoma. Additionally, there is a similar appearing mass but much smaller in the right adrenal gland (measuring 3.4 cm). Given the bilaterality, this favors multiple adrenal myelolipomas, although tissue pathology is suggested for confirmation. 2. Splenomegaly along with prominent bilateral iliac chain lymph nodes, which is nonspecific but may represent sequela of infection or inflammation of unknown etiology. Body Scan Nuclear Medicine 07/11/18 00:00 IMPRESSION: NORMAL BONE SCAN. Chest CT 07/12/18 05:00 IMPRESSION: Bilateral axillary as well as to a lesser degree central mediastinal adenopathy. Bilateral fat-containing adrenal masses. Assessment & Plan - Diagnosis (1) Adrenal mass, left Is this a current diagnosis for this admission?: Yes Plan: Possible that this is a benign enlargement, primary adrenal malignancy workup is pending with urine metanephrines, patient now can be discharged with follow- up in our office with PET/CT needed. If PET/CT shows PET positive areas that we can go after peripherally then we would go after that otherwise patient will need probable referral to a tertiary care center for consideration of biopsy. (2) Neoplasm related pain Is this a current diagnosis for this admission?: Yes Plan: Change from [place] to oxycodone, discussed this with hospitalist team, they will write prescription and prepare his discharge today. - Time Time Spent with patient: 35 or more minutes Anticipated discharge: Home Within: within 24 hours
--- NOTE | 2018-07-12 11:14 | PDOC DISCHARGE SUMMARY ---
General - Admit/Disc Date/PCP Admission Date/Primary Care Provider: 07/11/18 01:37 Discharge Date: 07/12/18 - seen on rounds this morning - Discharge Diagnosis (1) Mediastinal adenopathy Is this a current diagnosis for this admission?: Yes (2) Adrenal mass, left Is this a current diagnosis for this admission?: Yes (3) Neoplasm related pain Is this a current diagnosis for this admission?: Yes - Additional Information Resuscitation Status: Full Code Prescriptions: Folic Acid [Folvite 1 mg Tablet] 1 mg PO DAILY #30 tablet Hydrocodone/Acetaminophen [[place] 5-325 mg Tablet] 1 tab PO Q4HP PRN #20 tablet PRN Reason: Thiamine HCl [Thiamine 100 mg Tablet] 100 mg PO DAILY #30 tablet Home Medications: Folic Acid [Folvite 1 mg Tablet] 1 mg PO DAILY #30 tablet 07/12/18 Hydrocodone/Acetaminophen [[place] 5-325 mg Tablet] 1 tab PO Q4HP PRN #20 tablet 07/12/18 Thiamine HCl [Thiamine 100 mg Tablet] 100 mg PO DAILY #30 tablet 07/12/18 History of Present Illness History of Present Illness: MELITA SETH is a 52 year old male Hospital Course Hospital Course: after admission to the hospital Oncology was consulted for his left renal masses. he had CT chest which showed mediastinal adenopathy. he had labs ordered during admission which are still pending. advised patient to follow up. he will have PET scan with Dr Reyes outpatient. concern is for metastatic disease. spoke with dr Reyes this morning- Dr reyes recommends discharging patient at this time on pain meds. patient has follow up appointment within one week with Dr Reyes at this office. patient still had left flank pain but better with pain meds due to his use of alcohol i have also discharged him on folic acid and thiamine at this time Physical Exam Vital Signs: Temp Pulse Resp BP Pulse Ox 97.9 F 77 14 120/54 L 100 07/12/18 07:38 07/12/18 07:38 07/12/18 07:38 07/12/18 07:38 07/12/18 07:38 Intake & Output 07/11/18 07/12/18 07/13/18 06:59 06:59 06:59 Intake Total 1000 1351.2 Output Total 975 Balance 1000 376.2 Weight 118 lb 2.684 oz 117 lb 1.047 oz General appearance: PRESENT: no acute distress Head exam: PRESENT: atraumatic, normocephalic Eye exam: PRESENT: EOMI. ABSENT: conjunctival injection, scleral icterus Ear exam: PRESENT: normal external ear exam Mouth exam: PRESENT: tongue midline Neck exam: ABSENT: tracheal deviation Respiratory exam: PRESENT: clear to auscultation ramila, symmetrical Cardiovascular exam: PRESENT: +S1, +S2 Pulses: PRESENT: +2 pedal pulses bilateral GI/Abdominal exam: PRESENT: normal bowel sounds, soft, tenderness - left flank area Extremities exam: ABSENT: pedal edema Neurological exam: PRESENT: alert, awake, oriented to person, oriented to place , oriented to time, oriented to situation, CN II-XII grossly intact Skin exam: PRESENT: dry, warm Results Impressions: Abdomen/Pelvis CT 07/10/18 23:20 IMPRESSION: 1. Giant left-sided adrenal mass measuring up to 13 cm, containing predominantly fat with internal stranding and soft tissue components. This may represent either a very large adrenal myelolipoma versus a retroperitoneal liposarcoma. Additionally, there is a similar appearing mass but much smaller in the right adrenal gland (measuring 3.4 cm). Given the bilaterality, this favors multiple adrenal myelolipomas, although tissue pathology is suggested for confirmation. 2. Splenomegaly along with prominent bilateral iliac chain lymph nodes, which is nonspecific but may represent sequela of infection or inflammation of unknown etiology. Body Scan Nuclear Medicine 07/11/18 00:00 IMPRESSION: NORMAL BONE SCAN. Chest CT 07/12/18 05:00 IMPRESSION: Bilateral axillary as well as to a lesser degree central mediastinal adenopathy. Bilateral fat-containing adrenal masses. Qualifiers - * PATIENT BEING DISCHARGED WITH ANY OF THE FOLLOWING DIAGNOSIS: No Plan Time Spent: Less than 30 Minutes
[2018-07-12 11:39] VITALS: BP 123/61
[2018-07-15 11:39] LABS: METANEPHRINE URINE 135 ug/L (Undefined); NORMETANEPHRINE URINE 314 ug/L (Undefined)
[2018-07-15 13:34] LABS: METANEPHRINE URINE 24HR 142 ug/24 hr (45-290); NORMETANEPHRINE URINE 24HR 330 ug/24 hr (82-500)
[2018-07-17 03:38] LABS: DOPAMINE URINE 238 ug/L (Undefined); EPINEPHRINE URINE 4 ug/L (Undefined); EPINEPHRINE URINE 24HR 4 ug/24 hr (0-20); NOREPINEPHRINE URINE 28 ug/L (Undefined); NOREPINEPHRINE URINE 24HR 29 ug/24 hr (0-135)
[2018-07-17 07:37] LABS: DOPAMINE URINE 24HR 250 ug/24 hr (0-510)
== END 2018-07-12 12:25 | disposition home or self-care (01) ==
LOC: ER 21:22 → EH 07-11 01:37 → 4W 07-11 04:41
PROVIDERS: ADMIT Internal Medicine; ATTEND Internal Medicine
DX: R59.0 Localized enlarged lymph nodes (principal); E27.8 Other specified disorders of adrenal gland; G89.3 Neoplasm related pain (acute) (chronic); R16.1 Splenomegaly, not elsewhere classified; L29.9 Pruritus, unspecified; L98.9 Disorder of the skin and subcutaneous tissue, unspecified; R21 Rash and other nonspecific skin eruption; R10.32 Left lower quadrant pain; F10.20 Alcohol dependence, uncomplicated; S30.811A Abrasion of abdominal wall, initial encounter; X58.XXXA Exposure to other specified factors, initial encounter
CPT/HCPCS: 99285; 96361; 96374; 36415 ×2; 83690; 82382; 82570; 85025; 85610; 80053; 81001; 82533; 78306; 71260; 74177; G0378 ×3; A9561; J1644; J3490 ×2; J2270; J3411 ×2; J7030; J7050 ×2; Q9969

== ENCOUNTER 2018-07-17 12:51 | Emergency (ER) | payer OTHER ==
[2018-07-17] MEDS ORDERED: FENTANYL 25 MCG/HR PATCH.TD72 TD ONE (14:18)
--- NOTE | 2018-07-17 14:32 | ER Document Report ---
ED General - General Chief Complaint: Breathing Difficulty Stated Complaint: DIFFICULTY BREATHING Time Seen by Provider: 07/17/18 14:09 Mode of Arrival: Ambulatory Information source: Patient Notes: Chief complaint: Pain History of complain:( obtained from----patient) 52 years old male with metastatic adrenal carcinoma with a large mass in the abdomen and metastases to the mediastinum and axillary lymph nodes. Taking oxycodone, states that this is not controlling his pain adequately. Otherwise status has not changed. He was discharged a few days from the hospital. Currently being evaluated by Dr. David giang. They going to have a PET scan done. Onset: As above Duration: Long-standing Severity: Mild to moderate Quality: Sharp Context: As described above Exacerbating factor and relieving factors: REVIEW OF SYSTEMS: CONSTITUTIONAL : Denies fever, chills, or sweats. Denies recent illness. EENT: Denies eye, ear, throat, or mouth pain or symptoms. Denies nasal or sinus congestion or discharge. Denies throat, tongue, or mouth swelling or difficulty swallowing. CARDIOVASCULAR: Denies chest pain. Denies palpitations or racing or irregular heart beat. Denies ankle edema. RESPIRATORY: Denies cough, cold, or chest congestion. Denies shortness of breath, difficulty breathing, or wheezing. GASTROINTESTINAL: Denies distention. Denies nausea, vomiting, or diarrhea. Denies blood in vomitus, stools, or per rectum. Denies black, tarry stools. Denies constipation. GENITOURINARY: Denies difficulty urinating, painful urination, burning, frequency, blood in urine, or discharge. FEMALE GENITOURINARY: Denies vaginal bleeding, heavy or abnormal periods, irregular periods. Denies vaginal discharge or odor. MUSCULOSKELETAL: Denies back or neck pain or stiffness. Denies joint pain or swelling. SKIN: Denies rash, lesions or sores. HEMATOLOGIC : Denies easy bruising or bleeding. LYMPHATIC: Denies swollen, enlarged glands. NEUROLOGICAL: Denies confusion or altered mental status. Denies passing out or loss of consciousness. Denies dizziness or lightheadedness. Denies headache. Denies weakness or paralysis or loss of use of either side. Denies problems with gait or speech. Denies sensory loss, numbness, or tingling. Denies seizures. PSYCHIATRIC: Denies anxiety or stress. Denies depression, suicidal ideation, or homicidal ideation. ALL OTHER SYSTEMS REVIEWED AND NEGATIVE. PHYSICAL EXAMINATION: GENERAL: Well-appearing, well-nourished and in no acute distress. HEAD: Atraumatic, normocephalic. EYES: Pupils equal round and reactive to light, extraocular movements intact, conjunctiva are normal. ENT: Nares patent, oropharynx clear without exudates. Moist mucous membranes. NECK: Normal range of motion, supple without lymphadenopathy LUNGS: Breath sounds clear to auscultation bilaterally and equal. No wheezes rales or rhonchi. HEART: Regular rate and rhythm without murmurs ABDOMEN: Soft, diffuse tenderness., nondistended abdomen. No guarding, no rebound. Multiple masses appreciated. Examination of genitals-deferred Musculoskeletal: Normal range of motion, no pitting or edema. No cyanosis. NEUROLOGICAL: Cranial nerves grossly intact. Normal speech, normal gait. Normal sensory, motor exams PSYCH: Normal mood, normal affect. SKIN: Multiple rashes secondary to scratching nail ochoa Dictation was performed using [employer] voice recognition software TRAVEL OUTSIDE OF THE [place] IN LAST 30 DAYS: No - HPI Notes: Dictated - Related Data Allergies/Adverse Reactions: No Known Allergies Allergy (Verified 02/05/18 19:05) Past Medical History - Social History Smoking Status: Never Smoker Chew tobacco use (# tins/day): Yes - Uses Dip Frequency of alcohol use: None Drug Abuse: None Lives with: Family Family History: Reviewed & Not Pertinent, Other - ASTHMA, no familial cancer syndromes Patient has suicidal ideation: No Patient has homicidal ideation: No - Past Medical History Cardiac Medical History: Reports: Hx Hypertension Pulmonary Medical History: Reports: Hx Asthma, Hx COPD Renal/ Medical History: Denies: Hx Peritoneal Dialysis Musculoskeletal Medical History: Reports Hx Musculoskeletal Trauma Psychiatric Medical History: Reports: Hx Bipolar Disorder, Hx Depression Past Surgical History: Reports: Hx Orthopedic Surgery - plate/screws in toe - Immunizations Hx Diphtheria, Pertussis, Tetanus Vaccination: Yes Review of Systems - Review of Systems Notes: Dictated Physical Exam - Vital signs Vitals: Temp Pulse Resp BP Pulse Ox 98.7 F 94 16 129/75 H 97 07/17/18 13:18 18 13:18 07/17/18 13:18 07/17/18 13:18 07/17/18 13:18 - Notes Notes: Dictated Course - Re-evaluation Re-evalutation: 07/17/18 14:30 Case was discussed with the oncologist Dr. Ortiz - Vital Signs Vital signs: Temp Pulse Resp BP Pulse Ox 98.7 F 94 16 129/75 H 97 07/17/18 13:18 07/17/18 13:18 07/17/18 13:18 07/17/18 13:18 07/17/18 13:18 Discharge - Discharge Clinical Impression: Metastatic malignant neoplasm to adrenal gland Qualifiers: Laterality: unspecified laterality Qualified Code(s): C79.70 - Secondary malignant neoplasm of unspecified adrenal gland Condition: Fair Disposition: HOME, SELF-CARE Prescriptions: Fentanyl [Duragesic 25 mcg/hr Transdermal Patch] 1 each TD Q3D #7 patch.td72 Hydroxyzine HCl [Atarax 25 mg Tablet] 1 - 2 tab PO QID #25 tablet Referrals: THOMAS NEGRO MD [Primary Care Provider] - Follow up as needed
[2018-07-17 14:39] VITALS: BP 140/90
== END 2018-07-17 14:39 | disposition home or self-care (01) ==
LOC: ER 12:51
DX: C79.70 Secondary malignant neoplasm of unspecified adrenal gland (principal); C78.1 Secondary malignant neoplasm of mediastinum; C77.3 Secondary and unspecified malignant neoplasm of axilla and upper limb lymph nodes; R10.817 Generalized abdominal tenderness; R21 Rash and other nonspecific skin eruption; J44.9 Chronic obstructive pulmonary disease, unspecified; I10 Essential (primary) hypertension; Z79.891 Long term (current) use of opiate analgesic; Z72.0 Tobacco use
CPT/HCPCS: 99285

== ENCOUNTER → 2018-07-20 | Outpatient (CLI) | payer OTHER ==
--- NOTE | 2018-07-21 09:36 | RADIOLOGY REPORT (SQ) ---
EXAM DESCRIPTION: PET CT SKULL/THIGH COMPLETED DATE/TIME: 07/20/2018 9:01 pm REASON FOR STUDY: ADRENAL GLAND CANCER C74.11 MALIGNANT NEOPLASM OF [place] OF RIGHT ADRENAL GLAND splenomegaly, constitutional symptoms worrisome for malignancy COMPARISON: CT chest 07/12/2018 CT abdomen pelvis 07/10/2018 Bone scan 07/11/2018 RADIONUCLIDE AND DOSE: 11.3 mCi F18 FDG The route of agent administration: Intravenous FASTING BLOOD SUGAR: 90 mg/dl CONTRAST TYPE AND DOSE: No CT contrast given. TECHNIQUE: Blood glucose level was verified. Above dose of FDG was injected intravenously. 2-D seg mented attenuation correction images were obtained from the base of the skull to the midthighs. Nonc ontrast CT images were obtained for attenuation correction and fusion with emission images. CT image s were performed without oral or intravenous contrast and are not sensitive for parenchymal lesions. A series of overlapping emission PET images were obtained. [facility] by the radiologist. Images stored on PACS. LIMITATIONS: None. FINDINGS: HEAD AND NECK: No areas of abnormal metabolic activity in the soft tissues of the head and neck. CHEST: Multiple enlarged axillary lymph nodes are present with activity at baseline, 1.6 SUV. Larges t bilateral axillary lymph nodes measure about 3 x 1.6 cm in size. ABDOMEN AND PELVIS: A predominantly fatty mass is present along the left adrenal gland, measuring abo ut 13 by 10 by 13 cm in size. This is predominantly fatty density with few vessels/soft tissue eleme nts around the periphery of the mass which are non hypermetabolic. Again, this may represent a massi ve angio myelolipoma rather than low-grade adrenal mass or retroperitoneal sarcoma/liposarcoma. Spleen is enlarged, 18 cm in greatest length with diffuse increased metabolic activity SUV 3.3. PROXIMAL LOWER EXTREMITIES: No areas of abnormal metabolic activity in the soft tissues of the lower extremities. BONES: No abnormal metabolic activity in the visualized skeleton. ADDITIONAL CT FINDINGS: No additional significant findings on the noncontrast CT images. OTHER: Blood pool background activity 1.6 SUV. Liver background activity 1.9 SUV IMPRESSION: Diffusely enlarged spleen with increased metabolic activity worrisome for myeloprolifera tive process. Enlarged axillary lymph nodes are present bilaterally with activity at baseline. 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 TECHNICAL DOCUMENTATION: JOB ID: [id number] [employer]- All Rights Reserved Reading location - IP/workstation name: [email or web address]
== END ==
LOC: RAD 17:28
PROVIDERS: ATTEND Internal Medicine
DX: C00-D49 Neoplasms (principal)
CPT/HCPCS: 78815; A9552

== ENCOUNTER 2018-07-23 03:07 | Emergency (ER) | payer OTHER ==
[2018-07-23 03:21] VITALS: BP 134/81
[2018-07-23] MEDS ORDERED: HYDROMORPHONE HCL INJ/PF 2 MG/ML AMPULE IM ONE (04:15)
[2018-07-23] MEDS ORDERED: HYDROMORPHONE HCL INJ/PF 2 MG/ML AMPULE ONE (04:21)
--- NOTE | 2018-07-23 06:46 | ER Document Report ---
ED General - General Chief Complaint: Abdominal Pain Stated Complaint: ABDOMINAL PAIN Time Seen by Provider: 07/23/18 03:15 Notes: Patient is a 52-year-old male presents the emergency department complaining of left upper quadrant pain. Patient states he was recently diagnosed with a tumor in his adrenal gland. States he has had left upper quadrant pain for a while now. Patient states that today he was at his oncologist Dr. Yoo's office and was given a prescription for fentanyl patch 25 mcg. Pt. stated that he went to the pharmacy this afternoon and his insurance would not cover it so he did not get it filled. Pt. stated that he took his prescription of Percocet this evening which did not help his pain so he presents to the ED. Patient denies any change in his pain, trauma to his left upper quadrant, nausea, vomiting, chest pain, shortness of breath. Past surgical history: Adrenal mass medications: Percocet, Fioricet, fentanyl, B1 Allergies: None TRAVEL OUTSIDE OF THE [place] IN LAST 30 DAYS: No - Related Data Allergies/Adverse Reactions: No Known Allergies Allergy (Verified 02/05/18 19:05) Past Medical History - General Information source: Patient - Social History Smoking Status: Unknown if Ever Smoked Family History: Reviewed & Not Pertinent, Other - ASTHMA, no familial cancer syndromes Patient has suicidal ideation: No Patient has homicidal ideation: No - Past Medical History Cardiac Medical History: Reports: Hx Hypertension Pulmonary Medical History: Reports: Hx Asthma, Hx COPD Renal/ Medical History: Denies: Hx Peritoneal Dialysis Musculoskeletal Medical History: Reports Hx Musculoskeletal Trauma Psychiatric Medical History: Reports: Hx Bipolar Disorder, Hx Depression Past Surgical History: Reports: Hx Orthopedic Surgery - plate/screws in toe - Immunizations Hx Diphtheria, Pertussis, Tetanus Vaccination: Yes Review of Systems - Review of Systems Constitutional: No symptoms reported EENT: No symptoms reported Cardiovascular: No symptoms reported Respiratory: No symptoms reported Gastrointestinal: See HPI Genitourinary: No symptoms reported Male Genitourinary: No symptoms reported Musculoskeletal: No symptoms reported Skin: No symptoms reported Hematologic/Lymphatic: No symptoms reported Neurological/Psychological: No symptoms reported Physical Exam - Vital signs Vitals: Temp Pulse Resp BP Pulse Ox 99.1 F 116 H 18 134/81 H 96 07/23/18 03:18 07/23/18 03:18 07/23/18 03:18 07/23/18 03:18 07/23/18 03:18 - Notes Notes: GENERAL: Alert, interacts well. No acute distress. HEAD: Normocephalic, atraumatic. EYES: Pupils equal, round, and reactive to light. Extraocular movements intact. ENT: Oral mucosa moist, tongue midline. NECK: Full range of motion. Supple. Trachea midline. LUNGS: Clear to auscultation bilaterally, no wheezes, rales, or rhonchi. No respiratory distress. HEART: Regular rate and rhythm. No murmur ABDOMEN: Non-distended. Bowel sounds present in all 4 quadrants. Abdomen nondistended, pain noted left upper quadrant. Right upper quadrant right lower quadrant soft nontender. Left lower quadrant nontender. EXTREMITIES: Moves all 4 extremities spontaneously. No edema, normal radial and dorsalis pedis pulses bilaterally. No cyanosis. BACK: no cervical, thoracic, lumbar midline tenderness. No saddle anesthesia, normal distal neurovascular exam. NEUROLOGICAL: Alert and oriented x3. Normal speech. cranial nerves II through XII grossly intact thanks for help last night PSYCH: Normal affect, normal mood. SKIN: Warm, dry, normal turgor. Excoriated lesions noted bilateral forearms. Patient states he has been "itching for a while now." States Dr. Yoo had also given him medication for this. Course - Re-evaluation Re-evalutation: Dilaudid given in the emergency department for help with the patient's pain this evening. Discussed with patient the need to follow-up with a doctor Fredo for a different pain medication that his insurance will cover. 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 Patient is non-tachycardic or diaphoretic, stable for discharge. - Vital Signs Vital signs: Temp Pulse Resp BP Pulse Ox 99.1 F 116 H 18 134/81 H 96 07/23/18 03:18 07/23/18 03:18 07/23/18 03:18 07/23/18 03:18 07/23/18 03:18 Discharge - Discharge Clinical Impression: Recurrent left upper quadrant abdominal pain Metastatic malignant neoplasm to adrenal gland Qualifiers: Laterality: left Qualified Code(s): C79.72 - Secondary malignant neoplasm of left adrenal gland Condition: Stable Disposition: HOME, SELF-CARE Additional Instructions: As we discussed you have been seen and treated in the emergency department for your chronic left upper abdominal pain. You need to follow with your oncologist Dr. Yoo for further treatments. Please return to the emergency room for any other concerning symptoms.
== END 2018-07-23 04:45 | disposition home or self-care (01) ==
LOC: ER 03:07
DX: R10.12 Left upper quadrant pain (principal); T40.4X6A Underdosing of other synthetic narcotics, initial encounter; Z91.120 Patient's intentional underdosing of medication regimen due to financial hardship; Z91.14 Patient's other noncompliance with medication regimen; Z79.891 Long term (current) use of opiate analgesic; C79.72 Secondary malignant neoplasm of left adrenal gland; L98.9 Disorder of the skin and subcutaneous tissue, unspecified; L29.9 Pruritus, unspecified; I10 Essential (primary) hypertension; J44.9 Chronic obstructive pulmonary disease, unspecified
CPT/HCPCS: 99284; 96372; J1170

== ENCOUNTER 2018-07-29 22:33 | Emergency (ER) | payer OTHER ==
--- NOTE | 2018-07-29 23:15 | ER Document Report ---
ED Medical Screen (RME) - General Chief Complaint: Abdominal Pain Stated Complaint: ABDOMINAL PAIN Time Seen by Provider: 07/29/18 23:13 Mode of Arrival: Wheelchair Information source: Patient Notes: Patient is a 52-year-old male with current adrenal gland cancer who presents to the emergency department with increased pain over the last few days. He states that he takes Percocet 10 mg every 6 hours which usually relieves his pain however his pain has worsened. He reports he was just diagnosed on 07/11/[address] JONES. Exam: Tenderness to left upper quadrant with palpation. I have greeted and performed a rapid initial assessment of this patient. A comprehensive ED assessment and evaluation of the patient, analysis of test results and completion of the medical decision making process will be conducted by additional ED providers. Dictation of this chart was performed using voice recognition software; therefore, there may be some unintended grammatical errors. TRAVEL OUTSIDE OF THE [place] IN LAST 30 DAYS: No - Related Data Allergies/Adverse Reactions: No Known Allergies Allergy (Verified 02/05/18 19:05) Past Medical History - Past Medical History Cardiac Medical History: Reports: Hx Hypertension Pulmonary Medical History: Reports: Hx Asthma, Hx COPD Renal/ Medical History: Denies: Hx Peritoneal Dialysis Musculoskeltal Medical History: Reports Hx Musculoskeletal Trauma Psychiatric Medical History: Reports: Hx Bipolar Disorder, Hx Depression Past Surgical History: Reports: Hx Orthopedic Surgery - plate/screws in toe - Immunizations Hx Diphtheria, Pertussis, Tetanus Vaccination: Yes Physical Exam - Vital signs Vitals: Temp Pulse Resp BP Pulse Ox 98 F 74 18 132/71 H 96 07/29/18 22:45 07/29/18 22:45 07/29/18 22:45 07/29/18 22:45 07/29/18 22:45 Course - Vital Signs Vital signs: Temp Pulse Resp BP Pulse Ox 98 F 74 18 132/71 H 96 07/29/18 22:45 07/29/18 22:45 07/29/18 22:45 07/29/18 22:45 07/29/18 22:45
--- NOTE | 2018-07-29 23:24 | ER Document Report ---
ED General - General Chief Complaint: Abdominal Pain Stated Complaint: ABDOMINAL PAIN Time Seen by Provider: 07/29/18 23:13 Mode of Arrival: Wheelchair Notes: Patient is a 52-year-old male with adrenal cancer that presents to the emergency department for chief complaint of left upper quadrant abdominal pain. Patient states that he was diagnosed with adrenal carcinoma in the beginning of this month, he has a large left adrenal tumor, he has been having off-and-on left upper quadrant pain related to the tumor mass, but today it seemed to be worse, he called his oncologist, who advised him to take 2 of his oxycodone to see if it would help the pain, but it persisted so he decided come to the ED, although the medicine did seem to help to a degree. He denies having any fevers, chills, nausea, vomiting, dysuria, hematuria or diarrhea. Denies any changes in his urinary patterns. He states that this is the same pain that he gets, it just varies in intensity, he states that they are try to set him up with fentanyl patches, and he is due to see a surgeon this upcoming Saturday in [place] to have evaluation for possible surgery versus chemotherapy and radiation therapy. Past Medical History: Adrenal carcinoma Past Surgical History: Left toe surgery Social History: Former alcohol use, denies tobacco or illicit drug use Family History: Reviewed and noncontributory for presenting illness Allergies: Reviewed, see documented allergy list. REVIEW OF SYSTEMS: Other than noted above, the 12 point review of systems was reviewed with the patient and were negative, all pertinent findings are included in the HPI. PHYSICAL EXAMINATION: Vital signs reviewed, nursing noted reviewed. GENERAL: Well-appearing, well-nourished and in no acute distress. HEAD: Atraumatic, normocephalic. EYES: Eyes appear normal, extraocular movements intact, sclera anicteric, conjunctiva are normal. ENT: nares patent, oropharynx clear without exudates. Moist mucous membranes. NECK: Normal range of motion, supple without lymphadenopathy LUNGS: Breath sounds clear to auscultation bilaterally and equal. No wheezes rales or rhonchi. HEART: Regular rate and rhythm without murmurs ABDOMEN: Soft, palpable left upper quadrant mass, consistent with patient's known adrenal tumor, mild tenderness to palpation in this area, normoactive bowel sounds. No rebound, guarding, or rigidity. EXTREMITIES: Nontender, good range of motion, no pitting or edema. NEUROLOGICAL: No focal neurological deficits. Moves all extremities spontaneously Motor and sensory grossly intact on exam. PSYCH: Normal mood, normal affect. SKIN: Warm, Dry, normal turgor, no rashes or lesions noted on exposed skin TRAVEL OUTSIDE OF THE [place] IN LAST 30 DAYS: No - Related Data Allergies/Adverse Reactions: No Known Allergies Allergy (Verified 02/05/18 19:05) Past Medical History - General Information source: Patient - Social History Smoking Status: Never Smoker Family History: Reviewed & Not Pertinent, Other - Past Medical History Cardiac Medical History: Reports: Hx Hypertension Pulmonary Medical History: Reports: Hx Asthma, Hx COPD Renal/ Medical History: Denies: Hx Peritoneal Dialysis Musculoskeletal Medical History: Reports Hx Musculoskeletal Trauma Psychiatric Medical History: Reports: Hx Bipolar Disorder, Hx Depression Past Surgical History: Reports: Hx Orthopedic Surgery - plate/screws in toe - Immunizations Hx Diphtheria, Pertussis, Tetanus Vaccination: Yes Physical Exam - Vital signs Vitals: Temp Pulse Resp BP Pulse Ox 98 F 74 18 132/71 H 96 07/29/18 22:45 07/29/18 22:45 07/29/18 22:45 07/29/18 22:45 07/29/18 22:45 Course - Re-evaluation Re-evalutation: I discussed the patient at length, the details of the pain, he states it is similar to his prior pain, and not changed, just more intense this evening, which she has had it this bad in the past, that is why they are having him set up for further pain management, with fentanyl patches, as this does cause some discomfort on a daily basis. He is set to follow-up with an MRI tomorrow morning, and then follow-up appointment in [place], with a surgical oncologist. We will treat the patient, for his acute pain, with a dose of 2 mg of IM Dilaudid, and then placed him back on his regimen of oxycodone, hopefully treating his acute pain, getting back on his baseline regimen will improve his overall symptoms, so he can meet his appointments for tomorrow and the following day. Patient is agreeable to this plan of care, I do not feel he needs any further valuation with blood work, or imaging at this time, given that this is very similar pain that he has had in the past, however he was encouraged that if it did not improve or worsen this evening, that he could always return to the emergency department to be evaluated again. - Vital Signs Vital signs: Temp Pulse Resp BP Pulse Ox 97.8 F 67 18 131/74 H 98 07/30/18 00:17 07/30/18 00:17 07/30/18 00:17 07/30/18 00:17 07/30/18 00:17 Discharge - Discharge Clinical Impression: Abdominal pain Qualifiers: Abdominal location: left upper quadrant Qualified Code(s): R10.12 - Left upper quadrant pain Condition: Stable Disposition: HOME, SELF-CARE Instructions: Abdominal Pain ([facility]) Additional Instructions: Please follow-up with your MRI tomorrow, and your appointment in [place], and take your previously prescribed oxycodone 10 mg as directed, and follow-up with your oncologist, for further direction and pain management. Referrals: THOMAS NEGRO MD [ACTIVE STAFF] - Follow up as needed
[2018-07-29] MEDS ORDERED: HYDROMORPHONE HCL INJ/PF 2 MG/ML AMPULE IM ONE (23:38)
[2018-07-29] MEDS ORDERED: ONDANSETRON 4 MG TAB.RAPDIS PO ONE (23:38)
[2018-07-30 00:18] VITALS: BP 131/74
== END 2018-07-30 00:50 | disposition home or self-care (01) ==
LOC: ER 22:33
DX: R10.11 Right upper quadrant pain (principal); C74.90 Malignant neoplasm of unspecified part of unspecified adrenal gland; I10 Essential (primary) hypertension
CPT/HCPCS: 99283; 96372; S0119; J1170

== ENCOUNTER → 2018-07-30 | Outpatient (CLI) | payer MEDICAID, OTHER ==
--- NOTE | 2018-07-30 11:10 | RADIOLOGY REPORT (SQ) ---
EXAM DESCRIPTION: MRI ABDOMEN COMBO COMPLETED DATE/TIME: 07/30/2018 10:12 am REASON FOR STUDY: ADRENAL GLAND CA C74.11 MALIGNANT NEOPLASM OF [place] OF RIGHT ADRENAL GLAND COMPARISON: CT abdomen pelvis 07/10/2018 CT chest 07/12/2018 PET-CT 07/20/2018 TECHNIQUE: Multiplanar multisequence imaging performed without and with contrast including sagittal, axial and coronal T2, axial T1, axial gradient fat sat T1, axial, sagittal and coronal fat sat T1 po st contrast. CONTRAST TYPE AND DOSE: 20 mL Prohance. RENAL FUNCTION: GFR > 60. LIMITATIONS: None. FINDINGS: LIVER: Normal size. No masses. No dilated ducts. CBD normal. SPLEEN: 17 cm in greatest craniocaudad length, similar compared to prior studies PANCREAS: No masses. No adjacent inflammation or peripancreatic fluid collections. Pancreatic duct no t dilated. GALLBLADDER: No masses. No stones. No gallbladder wall thickening or pericholecystic fluid. ADRENAL GLANDS: On the left side, an adrenal mass is present measuring 14 cm craniocaudad by 12 cm AP x 9 cm transverse. This clearly has macroscopic fatty tissue weighted mid, with few soft tissue sep tations inferiorly. 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 Retroperitoneal liposarcoma could not entirely be excluded. Right adrenal gland unremarkable, coronal image 18. RIGHT KIDNEY AND URETER: No masses. No hydronephrosis. LEFT KIDNEY AND URETER: No masses. No hydronephrosis. AORTA AND VESSELS: No aneurysm. No dissection. Renal arteries, SMA, celiac without stenosis. RETROPERITONEUM: No retroperitoneal adenopathy, hemorrhage or masses. BOWEL: No gross bowel obstruction ABDOMINAL WALL AND PERITONEUM: No hernias. No free fluid. BONES: No acute or significant findings. OTHER: Axillary adenopathy bilaterally at the upper edge of the field of view. 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 Retroperitoneal lipos arcoma could not be excluded. Splenomegaly and bilateral axillary adenopathy worrisome for lymphoproliferative disease COMMENT: [employer]ographics 2004;24:S73-S86 TECHNICAL DOCUMENTATION: JOB ID: [id number] [employer](TM) by [employer]- All Rights Reserved Reading location - IP/workstation name: [email or web address]
== END ==
LOC: RAD 08:43
PROVIDERS: ATTEND Internal Medicine
DX: C00-D49 Neoplasms (principal)
CPT/HCPCS: 82565; 74183; A9576

== ENCOUNTER 2018-08-29 17:44 | Emergency (ER) | payer OTHER ==
[2018-08-29] MEDS ORDERED: NORMAL SALINE 1000 ML 1,000 ML IV ONE (18:11)
--- NOTE | 2018-08-29 18:12 | ER Document Report ---
ED General - General Stated Complaint: FEVER Time Seen by Provider: 08/29/18 17:55 Primary Care Provider: MICHELE LYONS MD [NO LOCAL MD] - Follow up in 3-5 days Mode of Arrival: Medic Information source: Patient TRAVEL OUTSIDE OF THE [place] IN LAST 30 DAYS: No - HPI Onset: Other - 52-year-old man who presents after having his left adrenal gland resected at [facility] for a tumor of the size of a grapefruit. He presented today for fever as well as pain in his right shoulder as well as nausea. Says that he has been doing okay since leaving the hospital 1 week prior but began to feel bad yesterday. He is continued to worsen since then and has had difficulty eating as much or drinking as much. This complaint of a fever today without any other symptoms. Did not speak to his surgeon and is scheduled to see him next week. - Related Data Allergies/Adverse Reactions: No Known Allergies Allergy (Verified 02/05/18 19:05) Past Medical History - General Information source: Patient - Social History Smoking Status: Current Every Day Smoker Family History: Reviewed & Not Pertinent, Other - Past Medical History Cardiac Medical History: Reports: Hx Hypertension Pulmonary Medical History: Reports: Hx Asthma, Hx COPD Renal/ Medical History: Denies: Hx Peritoneal Dialysis Musculoskeletal Medical History: Reports Hx Musculoskeletal Trauma Psychiatric Medical History: Reports: Hx Bipolar Disorder, Hx Depression Past Surgical History: Reports: Hx Orthopedic Surgery - plate/screws in toe - Immunizations Hx Diphtheria, Pertussis, Tetanus Vaccination: Yes Review of Systems - Review of Systems -: Yes All other systems reviewed and negative Physical Exam - Vital signs Vitals: Temp 101.1 F H 08/29/18 17:53 Interpretation: Normal - General General appearance: Appears well, Alert - HEENT Head: Normocephalic, Atraumatic Eyes: Normal Pupils: PERRL - Respiratory Respiratory status: No respiratory distress Chest status: Nontender Breath sounds: Normal Chest palpation: Normal - Cardiovascular Rhythm: Regular Heart sounds: Normal auscultation Murmur: No - Abdominal Inspection: Normal Distension: No distension Bowel sounds: Normal Tenderness: Nontender Organomegaly: No organomegaly - Back Back: Normal, Nontender - Extremities General lower extremity: Normal inspection, Nontender, Normal color, Normal ROM, Normal temperature, Normal weight bearing. No: Emi's sign Shoulder: Other - The right shoulder demonstrates marked tenderness over the bicipital groove and anterior aspect as well as tenderness over the right scapula, he has intact passive range of motion active range of motion is limited secondary to aches and pains, and the axilla of the right there is palpable lymph nodes without any obvious fluctuance or drainable collections of fluid - Neurological Neuro grossly intact: Yes Cognition: Normal Orientation: AAOx4 Cedric Coma Scale Eye Opening: Spontaneous Cedric Coma Scale Verbal: Oriented [place] Coma Scale Motor: Obeys Commands Cedric Coma Scale Total: 15 Speech: Normal Motor strength normal: LUE, RUE, LLE, RLE Sensory: Normal - Psychological Associated symptoms: Normal affect, Normal mood - Skin Skin Temperature: Warm Skin Moisture: Dry Skin Color: Normal Course - Re-evaluation Re-evalutation: 52-year-old man underwent resection of a small adrenal tumor in the left side. On examination his abdominal examination is benign, he is got pain in the right shoulder as well as in the axilla where there are palpable lymph nodes with no obvious fluctuance or fluid collection. We will obtain CT the abdomen and pelvis given that this is approximately 11 days postoperatively it could represent an abscess he does not have any other obvious source of fever at this time no runny nose cough diarrhea or dysuria. CT the abdomen and pelvis demonstrates a 2 x 3 collection of fluid which is concerning for potential abscess in the left bed, spoke to on-call surgeon who performed this patient's surgery doctors there have O's, he notes that he is uncertain whether or not this actually represents an abscess at this time is more concerned about the incision in the right axilla as there was some fluid in that axilla at the time of discharge. Reexamination of the axilla does not demonstrate any purulence or drainage there. There is pain in the right shoulder but it is not consistent with a probable septic joint given the history and the patient's ability to move it. We discussed treatment options, he is to follow-up with the surgeon in 3 days until then he will be placed on Augmentin for possible coverage of his abscess with return precautions. At the time of discharge she was ambulatory without assistance, tolerating p.o. and well-appearing with a benign abdominal examination his vital signs were improved he was given a dose of Augmentin. - Vital Signs Vital signs: Temp Pulse Resp BP Pulse Ox 98.4 F 14 118/70 100 08/29/18 23:03 08/29/18 23:03 08/29/18 23:03 08/29/18 23:03 - Laboratory Result Diagrams: 08/29/18 17:55 08/29/18 17:55 Laboratory results interpreted by me: 08/29/18 08/29/18 08/29/18 17:55 17:55 20:59 RBC 4.10 L Hgb 11.6 L Hct 33.6 L Eosinophils % 6.7 H Sodium 130.1 L Chloride 94 L Glucose 117 H Alkaline Phosphatase 139 H Urine Urobilinogen 4.0 H Discharge - Discharge Clinical Impression: Abscess Shoulder pain, right Qualifiers: Chronicity: acute Qualified Code(s): M25.511 - Pain in right shoulder Condition: Good Disposition: HOME, SELF-CARE Instructions: Abscess ([facility]), Oral Narcotic Medication ([facility]) Additional Instructions: You were seen today in the emergency department for the pain in your shoulder as well as your fever. You had an evaluation including a physical exam, a CAT scan of your abdomen as well as blood work. It appears that your area where the surgery was performed may have a small abscess. You have been started on antibiotic. You are to see your surgeon on Saturday of next week. Use the medication prescribed you as needed for your fever and pain, use the antibiotic as directed. Please return for worsening fevers, chills, inability to eat or drink or other symptoms. Prescriptions: Amox Tr/Potassium Clavulanate [Augmentin 875-125 Tablet] 1 tab PO BID 10 Days tablet Hydrocodone/Acetaminophen [Amonate 5-325 mg Tablet] 1 tab PO TID PRN #12 tablet PRN Reason: Referrals: MICHELE LYONS MD [NO LOCAL MD] - Follow up in 3-5 days
[2018-08-29 18:30] LABS: VENOUS BLOOD BASE EXCESS 0.3 mmol/L; VENOUS BLOOD HCO3 26.1 mmol/L (20-32); VENOUS BLOOD PCO2 45.7 mmHg (35-63); VENOUS BLOOD PH 7.38 (7.30-7.42)
[2018-08-29 18:31] LABS: ABSOLUTE BASOPHILS # (AUTO) 0.1 10^3/uL (0.0-0.2); ABSOLUTE EOSINOPHILS # (AUTO) 0.4 10^3/uL (0.0-0.6); ABSOLUTE LYMPHOCYTES (AUTO) 2.1 10^3/uL (0.5-4.7); ABSOLUTE MONOCYTES (AUTO) 0.8 10^3/uL (0.1-1.4); BASOPHILS % (AUTO) 1.2 % (0-2); EOSINOPHILS % (AUTO) 6.7 % (0-6); HEMATOCRIT 33.6 % (37.9-51.0); HEMOGLOBIN 11.6 g/dL (13.5-17.0); LYMPHOCYTES % (AUTO) 32.8 % (13-45); MEAN CORPUSCULAR HEMOGLOBIN 28.3 pg (27.0-33.4); MEAN CORPUSCULAR HGB CONC 34.4 g/dL (32.0-36.0); MEAN CORPUSCULAR VOLUME 82 fl (80-97); MONOCYTES % (AUTO) 12.5 % (3-13); PLATELET COUNT 255 10^3/uL (150-450); RED CELL DISTRIBUTION WIDTH 13.6 % (11.5-14.0); SEGMENTED NEUTROPHILS % (AUTO) 46.8 % (42-78); TOTAL CELLS COUNTED % (AUTO) 100 %; WHITE BLOOD COUNT 6.4 10^3/uL (4.0-10.5)
[2018-08-29] MEDS ORDERED: FENTANYL CITRATE INJ/PF 100 MCG/2 ML AMPUL IV ONE (18:31)
[2018-08-29 18:39] LABS: ALANINE AMINOTRANSFERASE 24 U/L (21-72); ALBUMIN 3.5 g/dL (3.5-5.0); ALKALINE PHOSPHATASE 139 U/L (38-126); ANION GAP 7 (5-19); ASPARTATE AMINO TRANSFERASE 34 U/L (17-59); BILIRUBIN,DIRECT 0.3 mg/dL (0.0-0.4); BILIRUBIN,TOTAL 0.7 mg/dL (0.2-1.3); BLOOD UREA NITROGEN 11 mg/dL (7-20); CALCIUM 9.1 mg/dL (8.4-10.2); CARBON DIOXIDE 29 mmol/L (22-30); CHLORIDE 94 mmol/L (98-107); GLUCOSE 117 mg/dL (75-110); POTASSIUM 4.8 mmol/L (3.6-5.0); SODIUM 130.1 mmol/L (137-145); TOTAL PROTEIN 7.1 g/dL (6.3-8.2)
--- NOTE | 2018-08-29 19:51 | RADIOLOGY REPORT (SQ) ---
EXAM DESCRIPTION: CT ABD/PELVIS WITH IV ONLY COMPLETED DATE/TIME: 08/29/2018 7:32 pm REASON FOR STUDY: concern for a post operative abscess COMPARISON: 07/10/2018 TECHNIQUE: CT scan of the abdomen and pelvis performed using helical scanning technique with dynamic intravenous contrast injection. No oral contrast. Images reviewed with lung, soft tissue, and bone windows. Reconstructed coronal and sagittal MPR images reviewed. Delayed images for evaluation of the urinary system also acquired. All images stored on PACS. All CT scanners at this facility use dose modulation, iterative reconstruction, and/or weight based d osing when appropriate to reduce radiation dose to as low as reasonably achievable (ALARA). [facility]: Dose Right [facility]: CareDose [facility]: Dose Right [facility]: Teradose 4D [facility]: [employer] CONTRAST TYPE AND DOSE: contrast/concentration: Isovue 350.00 mg/ml; Total Contrast Delivered: 60.0 ml; Total Saline Delivered: 40.0 ml RENAL FUNCTION: BUN 11 creatinine 0.95 RADIATION DOSE: CT Rad equipment meets quality standard of care and radiation dose reduction techniq ues were employed. CTDIvol: 5.9 - 7.8 mGy. DLP: 683 mGy-cm.. LIMITATIONS: None. FINDINGS: LOWER CHEST: Small left pleural effusion with mild compressive atelectasis in the left low er lobe. LIVER: Normal size. No masses. No dilated ducts. SPLEEN: Splenomegaly. PANCREAS: No masses. No significant calcifications. No adjacent inflammation or peripancreatic fluid collections. Pancreatic duct not dilated. GALLBLADDER: No identified stones by CT criteria. No inflammatory changes to suggest cholecystitis. ADRENAL GLANDS: The left adrenal mass has been resected. A small amount fluid is seen on the left be tween the spleen and spine. This measures about 2 x 3 cm. This is seen best on image 25 series 3. There is a mildly enhancing rim. RIGHT KIDNEY AND URETER: No solid masses. No significant calcifications. No hydronephrosis or hyd roureter. LEFT KIDNEY AND URETER: No solid masses. No significant calcifications. No hydronephrosis or hydr oureter. AORTA AND VESSELS: No aneurysm. No dissection. Renal arteries, SMA, celiac without stenosis. RETROPERITONEUM: No retroperitoneal adenopathy, hemorrhage or masses. BOWEL AND PERITONEAL CAVITY: No masses or inflammatory changes. No free fluid or peritoneal masses. APPENDIX: Not identified. PELVIS: Urinary bladder is normal. No pelvic masses or fluid collections are seen. ABDOMINAL WALL: No masses. No hernias. BONES: No significant or acute findings. OTHER: No other significant finding. IMPRESSION: There appears to be a small left abscess as described. There is splenomegaly. TECHNICAL DOCUMENTATION: JOB ID: [id number] Quality ID # [id number]: Final reports with documentation of one or more dose reduction techniques (e.g., Au tomated exposure control, adjustment of the mA and/or kV according to patient size, use of iterative reconstruction technique) 2010 [employer]- All Rights Reserved Reading location - IP/workstation name: [email or web address]
[2018-08-29 21:51] LABS: APPEARANCE,URINE CLEAR; BILIRUBIN,URINE NEGATIVE (NEGATIVE); COLOR,URINE YELLOW; GLUCOSE, URINE NEGATIVE (NEGATIVE); KETONES,URINE NEGATIVE (NEGATIVE); LEUKOCYTE ESTERASE,URINE NEGATIVE (NEGATIVE); NITRITE,URINE NEGATIVE (NEGATIVE); PROTEIN,URINE NEGATIVE (NEGATIVE); URINE SPECIFIC GRAVITY 1.015
[2018-08-29] MEDS ORDERED: AMOXICILLIN TR/POT CLAVULANATE 500-125 MG TAB PO ONE (22:37)
[2018-08-29] MEDS ORDERED: ACETAMINOPHEN 325 MG TABLET PO ONE (22:37)
[2018-08-29] MEDS ORDERED: HYDROCODONE/ACETAMINOPHEN 5-325 MG TABLET PO ONE (23:09)
[2018-08-29 23:15] VITALS: BP 118/70
== END 2018-08-29 23:43 | disposition home or self-care (01) ==
LOC: ER 17:44
DX: L02.413 Cutaneous abscess of right upper limb (principal); M25.511 Pain in right shoulder; R50.9 Fever, unspecified; R11.0 Nausea; F17.200 Nicotine dependence, unspecified, uncomplicated; J44.9 Chronic obstructive pulmonary disease, unspecified; Z98.890 Other specified postprocedural states
CPT/HCPCS: 99284; 96374; 36415; 83690; 85025; 80053; 81001; 82803; 83605; 74177; J3010; J7030

== ENCOUNTER 2018-08-30 11:46 | Emergency (ER) | payer OTHER ==
[2018-08-30] MEDS ORDERED: ONDANSETRON HCL INJ/PF 4 MG/2 ML SDV IV ONE (12:06)
[2018-08-30] MEDS ORDERED: MORPHINE SULFATE 10 MG/ML INJ IV ONE ×2 (12:06→13:54)
--- NOTE | 2018-08-30 12:13 | ER Document Report ---
ED General - General Chief Complaint: Nausea/Vomiting Stated Complaint: VOMITING Time Seen by Provider: 08/30/18 11:54 TRAVEL OUTSIDE OF THE [place] IN LAST 30 DAYS: No - HPI Notes: Patient is a 52-year-old male with a history of a recent adrenal gland surgery for tumor up in [place] who presents to the emergency department complaining of nausea and vomiting and unable to take his medications orally. He also has severe right shoulder pain w/o known injury. He has felt feverish over the last 1-2 days as well. Patient was evaluated yesterday and had a CT scan performed which showed a 2 x 3 cm fluid collection between his spleen and the spine. He has not had any pain to his abdomen. Patient was placed on antibiotics and was to follow-up with a surgeon on Saturday. Patient states that he has not had any abdominal pain otherwise. He is still urinating and having bowel movements. Patient states that he came to the emergency department because of intolerance of p.o. No other concerns or complaints. Denies drug allergies. Denies any headache, fever, neck pain, URI, sore throat, chest pain, palpitations, syncope, cough, shortness of breath, wheeze, dyspnea, abdominal pain, diarrhea, urinary retention, dysuria, hematuria, back pain, or rash. - Related Data Allergies/Adverse Reactions: No Known Allergies Allergy (Verified 02/05/18 19:05) Past Medical History - Social History Smoking Status: Unknown if Ever Smoked Family History: Reviewed & Not Pertinent, Other - Past Medical History Cardiac Medical History: Reports: Hx Hypertension Pulmonary Medical History: Reports: Hx Asthma, Hx COPD Renal/ Medical History: Denies: Hx Peritoneal Dialysis Musculoskeletal Medical History: Reports Hx Musculoskeletal Trauma Psychiatric Medical History: Reports: Hx Bipolar Disorder, Hx Depression Past Surgical History: Reports: Hx Orthopedic Surgery - plate/screws in toe - Immunizations Hx Diphtheria, Pertussis, Tetanus Vaccination: Yes Review of Systems - Review of Systems -: Yes All other systems reviewed and negative Physical Exam - Vital signs Vitals: Temp Pulse Resp BP Pulse Ox 99.0 F 116 H 18 126/64 H 100 08/30/18 11:53 08/30/18 11:53 08/30/18 11:53 08/30/18 11:53 08/30/18 11:53 - Notes Notes: PHYSICAL EXAMINATION: GENERAL: Appears frail. no acute distress. A&Ox4. answers questions appropriately. HEAD: Atraumatic, normocephalic. EYES: Pupils equal round and reactive to light, extraocular movements intact, sclera anicteric, conjunctiva are normal. ENT: Nares patent and without discharge. oropharynx clear without exudates. No tonsilar hypertrophy or erythema. Moist mucous membranes. NECK: Normal range of motion, supple without lymphadenopathy LUNGS: Breath sounds clear to auscultation bilaterally and equal. No wheezes rales or rhonchi. HEART: Regular rate and rhythm without murmurs, rubs, gallops. ABDOMEN: Soft, nontender, nondistended abdomen. No guarding, no rebound. No masses appreciated. Normal bowel sounds present. No CVA tenderness bilaterally. Musculoskeletal: Rt shoulder: LROM due to pain. No significant erythema or warmth. No ecchymosis. + tenderness to palpation primarily to the anterosu perior shoulder. N/V intact distal. Extremities: No cyanosis, clubbing, or edema b/l. Peripheral pulses 2+. Capillary refill less than 3 seconds. NEUROLOGICAL: Cranial nerves grossly intact. Normal speech, normal gait. Normal sensory, motor exams PSYCH: Normal mood, normal affect. SKIN: Warm, Dry, normal turgor, no rashes or lesions noted. Course - Re-evaluation Re-evalutation: 08/30/18 15:08 Call placed for consult with Dr. Pimentel, Surgical Oncology, at [facility] for consult. I did speak with Dr. De Santiago about this patient as he saw him last evening and previously consulted with Dr. Pimentel. Labs are unremarkable. Pt was given fluids and meds for his symptoms. N/V improved and patient is drinking water w/o difficulty. He was started on augmentin yesterday and was to f/u with Dr. Pimentel' office on saturday. 08/30/18 15:[address] Pimentel who would like the patient's images pushed to them and he will call us back. 08/30/18 17:27 Dr. Pimentel spoke with Dr. De Santiago. US was performed to evaluate the rt axilla. Dr. Pimentel does not believe there is an abscess in his abdomen. Pt is still tachycardic. 08/30/18 18:28 Patient is an afebrile, well-hydrated, 52-year-old male who presents to the e mergency department with right shoulder pain, nausea/vomiting unspecified. Vitals are acceptable without significant tachycardia, tachypnea, or hypoxia. His heart rate has decreased to 100-115. He is nontoxic-appearing and is tolerating p.o. without difficulty. Patient has been receiving fluids as well as nausea and pain medicine. Lidoderm patch worked well for his shoulder. CBC, CMP, lactic acid, urinalysis, lipase unremarkable for any acute pathology. Right shoulder x-ray unremarkable. CRP is elevated but is to be expected. No further labs or imaging warranted at this time. I did review with the patient that we are not entirely sure of the source of his symptoms time and he needs to continue his antibiotic as directed as well as the nausea medicine that will be providing to him. He has not had any emesis throughout his stay. His abdomen is soft and nontender. Ultrasound performed to the right axilla was unremarkable performed by Dr. De Santiago. Low suspicion for any current sepsis, meningitis, acute abdomen, or other systemic emergent condition at this time. Patient is to monitor symptoms closely with strict return precautions. If he is having worsening pain, p.o. intolerance, or other concerning symptoms he is to return the emergency department immediately. Recheck with your surgeon as scheduled on Saturday. Patient is in agreement. Dr. de santiago is in agreement with this plan. - Vital Signs Vital signs: Temp Pulse Resp BP Pulse Ox 98.9 F 114 H 18 107/65 100 08/30/18 17:06 08/30/18 18:14 08/30/18 17:06 08/30/18 17:06 08/30/18 18:14 - Laboratory Result Diagrams: 08/30/18 12:17 08/30/18 12:17 Laboratory results interpreted by me: 08/30/18 08/30/18 08/30/18 12:17 12:17 12:17 RBC 4.12 L Hgb 11.5 L Hct 33.1 L Plt Count 142 L Eosinophils % (Manual) 12 H PT 17.4 H Sodium 131.2 L Calcium 8.3 L ALT 16 L Albumin 3.0 L Urine Ketones Urine Urobilinogen 08/30/18 15:05 RBC Hgb Hct Plt Count Eosinophils % (Manual) PT Sodium Calcium ALT Albumin Urine Ketones TRACE H Urine Urobilinogen 4.0 H Discharge - Discharge Clinical Impression: Shoulder pain, right Qualifiers: Chronicity: acute Qualified Code(s): M25.511 - Pain in right shoulder Nausea and vomiting Qualifiers: Vomiting type: unspecified Vomiting Intractability: non-intractable Qualified Code(s): R11.2 - Nausea with vomiting, unspecified Condition: Stable Disposition: HOME, SELF-CARE Instructions: Vomiting ([facility]), Antinausea Medication ([facility]) Additional Instructions: Maintain adequate fluid and food intake [place] diet ([facility] Bananas, rice, apples, toast, etc Zofran as needed tylenol if needed rest, ice, warm compress, light stretches of the shoulder Monitor for any worsening symptoms Make sure you are staying hydrated enough to urinate and have normal BM's Recheck with your PCM in 2-3 days Keep consult with your surgeon on saturday* Return to the ED with any worsening symptoms and/or development of fever, headache, chest pain, palpitations, syncope, shortness of breath, trouble breathing, abdominal pain, n/v/d, blood in stool/urine, weakness, or other worsening symptoms that are concerning to you. Prescriptions: Diclofenac Sodium [Voltaren] 4 gm TP QID PRN #100 gel..gm. PRN Reason: Lidocaine [Lidoderm 5% (700 mg) Transdermal Patch] 1 patch TP DAILY #4 adh..patch Ondansetron [Zofran Odt 4 mg Tablet] 1 - 2 tab PO Q4H PRN #15 tab.rapdis PRN Reason: For Nausea/Vomiting Referrals: MICHELE PIMENTEL MD [NO LOCAL MD] - 09/02/18
[2018-08-30] MEDS: NORMAL SALINE 1000 ML 1,000 ML IV PRN ×2 (12:30→13:20)
[2018-08-30 12:50] LABS: HEMATOCRIT 33.1 % (37.9-51.0); HEMOGLOBIN 11.5 g/dL (13.5-17.0); MEAN CORPUSCULAR HGB CONC 34.8 g/dL (32.0-36.0); MEAN CORPUSCULAR VOLUME 81 fl (80-97); PLATELET COUNT 142 10^3/uL (150-450); RED BLOOD COUNT 4.12 10^6/uL (4.35-5.55); RED CELL DISTRIBUTION WIDTH 13.8 % (11.5-14.0); WHITE BLOOD COUNT 5.4 10^3/uL (4.0-10.5)
[2018-08-30 12:52] LABS: INTERNATIONAL RATION (INR) 1.35; PROTHROMBIN TIME 17.4 SEC (11.4-15.4)
[2018-08-30 13:00] LABS: ALANINE AMINOTRANSFERASE 16 U/L (21-72); ALKALINE PHOSPHATASE 120 U/L (38-126); ANION GAP 8 (5-19); ASPARTATE AMINO TRANSFERASE 30 U/L (17-59); BILIRUBIN,DIRECT 0.3 mg/dL (0.0-0.4); BILIRUBIN,TOTAL 0.8 mg/dL (0.2-1.3); BLOOD UREA NITROGEN 14 mg/dL (7-20); CALCIUM 8.3 mg/dL (8.4-10.2); CARBON DIOXIDE 25 mmol/L (22-30); CHLORIDE 98 mmol/L (98-107); GLUCOSE 105 mg/dL (75-110); LIPASE 23.9 U/L (23-300); POTASSIUM 4.4 mmol/L (3.6-5.0); SODIUM 131.2 mmol/L (137-145); TOTAL PROTEIN 6.3 g/dL (6.3-8.2)
[2018-08-30 13:22] LABS: ABSOLUTE LYMPHOCYTES# (MANUAL) 2.2 10^3/uL (0.5-4.7); ABSOLUTE MONOCYTES # (MANUAL) 0.3 10^3/uL (0.1-1.4); ABSOLUTE NEUTROPHILS# (MANUAL) 2.3 10^3/uL (1.7-8.2); BASOPHILS % (MANUAL) 0 % (0-2); EOSINOPHILS % (MANUAL) 12 % (0-6); LYMPHOCYTES % (MANUAL) 40 % (13-45); MONOCYTES % (MANUAL) 6 % (3-13); SEGMENTED NEUTROPHILS % (MAN) 42 % (42-78); TOTAL CELLS COUNTED 100
[2018-08-30 13:23] LABS: PLATELET COMMENT DECREASED; TOXIC GRANULATION 2+
--- NOTE | 2018-08-30 14:41 | RADIOLOGY REPORT (SQ) ---
EXAM DESCRIPTION: SHOULDER RIGHT 2 OR MORE VIEWS COMPLETED DATE/TIME: 08/30/2018 2:21 pm REASON FOR STUDY: pain, axillary lymph node excision about 2wks ago COMPARISON: PET-CT 07/20/2018 NUMBER OF VIEWS: Three views. TECHNIQUE: Internal rotation, external rotation, and Y view images acquired of the right shoulder. LIMITATIONS: None. FINDINGS: MINERALIZATION: Normal. BONES: No acute fracture or dislocation. Moderate bony spurring at the right glenohumeral joint. JOINTS: No glenohumeral malalignment. No acromioclavicular joint widening. VISUALIZED LUNGS AND RIBS: No pneumothorax. No rib fracture. SOFT TISSUES: Right axillary surgical clips. OTHER: No other significant finding. IMPRESSION: Right glenohumeral joint osteoarthritis. No acute fracture or malalignment. Right axillary surgical clip. TECHNICAL DOCUMENTATION: JOB ID: [id number] [employer]- All Rights Reserved Reading location - IP/workstation name: [email or web address]
[2018-08-30] MEDS ORDERED: LIDOCAINE 5% (700 MG) TRANSDERMAL ADH..PATCH TP ONE (15:07)
[2018-08-30 15:33] LABS: APPEARANCE,URINE CLEAR; BILIRUBIN,URINE NEGATIVE (NEGATIVE); COLOR,URINE YELLOW; GLUCOSE, URINE NEGATIVE (NEGATIVE); KETONES,URINE TRACE mg/dL (NEGATIVE); LEUKOCYTE ESTERASE,URINE NEGATIVE (NEGATIVE); NITRITE,URINE NEGATIVE (NEGATIVE); PROTEIN,URINE NEGATIVE (NEGATIVE); URINE SPECIFIC GRAVITY 1.019
[2018-08-30] MEDS ORDERED: METOCLOPRAMIDE HCL INJ/PF 10 MG/2 ML SDV IV ONE (18:33)
[2018-08-30] MEDS ORDERED: KETOROLAC TROMETHAMINE INJ/PF 30 MG/1 ML SDV IV ONE (18:33)
[2018-08-30 18:57] VITALS: BP 134/71
== END 2018-08-30 19:00 | disposition home or self-care (01) ==
LOC: ER 11:46
DX: R11.2 Nausea with vomiting, unspecified (principal); Z98.890 Other specified postprocedural states; M25.511 Pain in right shoulder; I10 Essential (primary) hypertension; J44.9 Chronic obstructive pulmonary disease, unspecified; R00.0 Tachycardia, unspecified
CPT/HCPCS: 96376; 99284; 96361; 96374; 96375; 36415; 87040; 87086; 83690; 85025; 85652; 85610; 80053; 81001; 86141; 83605; 73030; J1885; J2765; J2270; J2405; J7030

== ENCOUNTER → 2019-01-26 | Outpatient (CLI) | payer OTHER ==
--- NOTE | 2019-01-26 10:42 | RADIOLOGY REPORT (SQ) ---
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 No oral contrast. Images reviewed with lung, soft tissue, and bone windows. Reconstructed coronal and sagittal MPR images reviewed. Delayed images for evaluation of the urinary system also acquired. All images stored on PACS. All CT scanners at this facility use dose modulation, iterative reconstruction, and/or weight based d osing when appropriate to reduce radiation dose to as low as reasonably achievable (ALARA). [facility]: Dose Right [facility]: CareDose [facility]: Dose Right [facility]: Teradose 4D [facility]: [employer] CONTRAST TYPE AND DOSE: contrast/concentration: Isovue 350.00 mg/ml; Total Contrast Delivered: 57.0 ml; Total Saline Delivered: 65.0 ml RENAL FUNCTION: Creatinine 1.5 RADIATION DOSE: CT Rad equipment meets quality standard of care and radiation dose reduction techniq ues were employed. CTDIvol: 2.6 - 3.1 mGy. DLP: 269 mGy-cm.. LIMITATIONS: None. FINDINGS: LOWER CHEST: No significant findings. No nodules or infiltrates. LIVER: Normal size. No masses. No dilated ducts. SPLEEN: Stable splenomegaly. PANCREAS: No masses. No significant calcifications. No adjacent inflammation or peripancreatic fluid collections. Pancreatic duct not dilated. GALLBLADDER: No identified stones by CT criteria. No inflammatory changes to suggest cholecystitis. ADRENAL GLANDS: Left adrenal has been removed. No significant masses or asymmetry. RIGHT KIDNEY AND URETER: No solid masses. No significant calcifications. No hydronephrosis or hyd roureter. LEFT KIDNEY AND URETER: No solid masses. No significant calcifications. No hydronephrosis or hydr oureter. AORTA AND VESSELS: No aneurysm. No dissection. Renal arteries, SMA, celiac without stenosis. RETROPERITONEUM: Retroperitoneal adenopathy, largest 1.5 cm aortocaval node image 37. BOWEL AND PERITONEAL CAVITY: No masses or inflammatory changes. No free fluid or peritoneal masses. APPENDIX: Normal. PELVIS: Worsening pelvic adenopathy. For example image 66 right external iliac node 2.2 x 2.9 cm, pr eviously 2.0 x 2.4 cm. ABDOMINAL WALL: No masses. No hernias. BONES: No significant or acute findings. OTHER: No other significant finding. IMPRESSION: 1. Retroperitoneal adenopathy. Worsening pelvic adenopathy. 2. Stable splenomegaly. TECHNICAL DOCUMENTATION: JOB ID: [id number] Quality ID # [id number]: Final reports with documentation of one or more dose reduction techniques (e.g., Au tomated exposure control, adjustment of the mA and/or kV according to patient size, use of iterative reconstruction technique) 2010 [employer]- All Rights Reserved Reading location - IP/workstation name: [email or web address]
== END ==
LOC: RAD 06:41
PROVIDERS: ATTEND Internal Medicine
DX: C00-D49 Neoplasms (principal); R59.9 Enlarged lymph nodes, unspecified; R16.1 Splenomegaly, not elsewhere classified
CPT/HCPCS: 74177; 82565

== ENCOUNTER 2019-01-31 20:38 | Emergency (ER) | payer OTHER ==
[2019-01-31 20:51] VITALS: BP 117/56
--- NOTE | 2019-01-31 23:07 | ER Document Report ---
Addendum entered and electronically signed by LUCY MCNALLY PA-C 01/31/19 23:26: Discharge - Discharge Clinical Impression: Dermatitis Condition: Good Disposition: HOME, SELF-CARE Prescriptions: Cephalexin Monohydrate [Keflex 500 mg Capsule] 500 mg PO Q6H 10 Days #40 capsule Famotidine [Pepcid 20 mg Tablet] 20 mg PO BID #10 tablet Fexofenadine HCl [Atiya] 180 mg PO DAILY #5 tablet Prednisone [Deltasone 20 mg Tablet] 3 tab PO DAILY 5 Days tablet Referrals: DAVE KAUR DO [ACTIVE STAFF] - Follow up in 1 week Original Note: ED General - General Chief Complaint: Skin Problem Stated Complaint: RASH Time Seen by Provider: 01/31/19 23:02 Primary Care Provider: RO PINON PA-C [Primary Care Provider] - Follow up as needed Mode of Arrival: Ambulatory Information source: Patient TRAVEL OUTSIDE OF THE [place] IN LAST 30 DAYS: No - HPI Patient complains to provider of: Itchy bumps rash lesions Onset: Last week Onset/Duration: Sudden Severity: Moderate Pain Level: 2 Associated symptoms: None Exacerbated by: Denies Relieved by: Denies Similar symptoms previously: No Recently seen / treated by doctor: No Notes: 53-year-old male coming in today with bumps, rash, itching that started on his buttocks but are essentially traveling on arms and legs as well. History of a adrenal gland being removed due to possible carcinoma. - Related Data Allergies/Adverse Reactions: No Known Allergies Allergy (Verified 01/31/19 20:42) Past Medical History - General Information source: Patient - Social History Smoking Status: Current Every Day Smoker Chew tobacco use (# tins/day): No Frequency of alcohol use: None Drug Abuse: None Lives with: Alone Family History: Reviewed & Not Pertinent, Other Patient has suicidal ideation: No Patient has homicidal ideation: No - Past Medical History Cardiac Medical History: Reports: Hx Hypertension Pulmonary Medical History: Reports: Hx Asthma, Hx COPD Renal/ Medical History: Denies: Hx Peritoneal Dialysis Musculoskeletal Medical History: Reports Hx Musculoskeletal Trauma Psychiatric Medical History: Reports: Hx Bipolar Disorder, Hx Depression Past Surgical History: Reports: Hx Orthopedic Surgery - plate/screws in toe - Immunizations Hx Diphtheria, Pertussis, Tetanus Vaccination: Yes Review of Systems - Review of Systems Notes: Constitutional: No fevers. No chills. EENT: No eye redness. No eye pain. No ear pain. No sore throat. Cardiovascular: No chest pain. No palpitations. Respiratory: No cough. No shortness of breath. No respiratory distress. Gastrointestinal: No abdominal pain. No nausea, vomiting, or diarrhea. Genitourinary: Atraumatic. No lesions. No pain. No discharge. Musculoskeletal: Atraumatic. No swelling. No deformities. Skin: Positive for papules and linear scrapes Lymphatic: No swollen lymph nodes. Neurologic: No headache. No syncope. Psychiatric: No suicidal or homicidal ideation. Physical Exam - Vital signs Vitals: Temp Pulse Resp BP Pulse Ox 98.6 F 97 16 117/56 L 96 01/31/19 20:50 01/31/19 20:50 01/31/19 20:50 01/31/19 20:50 01/31/19 20:50 - Notes Notes: General: Well-developed, well-nourished. In no acute distress. Non-toxic appearing. Cardiac: Well-perfused. Regular rate and rhythm. No murmurs, rubs, or gallops. Pulmonary: No respiratory distress. No cyanosis. Bilateral lung fiels are clear to auscultation. Abdominal: Non-distended. Non-rigid. Bowels sounds are present in all four quadrants. No guarding or rebound. HEENT: Head is atraumatic. Conjunctivae not reddened. No tearing. PERRL. EOMI. Orbits atraumatic. No periorbital swelling or erythema. Oropharynx is without erythema, swelling, or exudates. Neck: Supple. No adenopathy. No meningismus. Dermatologic: Patient with extreme dark-colored skin. Multiple papules that are in front stages of healing. There are numerous excoriations. Chest: Atraumatic. No chest wall tenderness to palpation. Musculoskeletal: Moves all extremities well. No range of motion deficits. no muscular or joint tenderness. No paraspinal muscle tenderness. no midline spinal tenderness or step-off. Genitourinary: Examination deferred Neurologic: No gross neurologic deficits. Psychiatric: Normal mood. Course - Vital Signs Vital signs: Temp Pulse Resp BP Pulse Ox 98.6 F 97 16 117/56 L 96 01/31/19 20:50 01/31/19 20:50 01/31/19 20:50 01/31/19 20:50 01/31/19 20:50 Discharge - Discharge Clinical Impression: Dermatitis Condition: Good Disposition: HOME, SELF-CARE Prescriptions: Cephalexin Monohydrate [Keflex 500 mg Capsule] 500 mg PO Q6H 10 Days #40 capsule Famotidine [Pepcid 20 mg Tablet] 20 mg PO BID #10 tablet Fexofenadine HCl [Atiya] 180 mg PO DAILY #5 tablet Prednisone [Deltasone 20 mg Tablet] 3 tab PO DAILY 5 Days tablet Referrals: RO PINON PA-C [Primary Care Provider] - Follow up as needed
== END 2019-01-31 23:21 | disposition home or self-care (01) ==
LOC: ER 20:38
DX: L30.9 Dermatitis, unspecified (principal); R21 Rash and other nonspecific skin eruption; F17.200 Nicotine dependence, unspecified, uncomplicated; I10 Essential (primary) hypertension; J44.9 Chronic obstructive pulmonary disease, unspecified
CPT/HCPCS: 99282

== ENCOUNTER 2019-02-26 00:01 | Emergency (ER) | payer OTHER ==
--- NOTE | 2019-02-26 02:12 | ER Document Report ---
ED General - General Chief Complaint: Headache Stated Complaint: HEADACHE/NECK SWELLING Time Seen by Provider: 02/26/19 01:51 TRAVEL OUTSIDE OF THE [place] IN LAST 30 DAYS: No - HPI Notes: Patient is a 53-year-old male that presents to the emergency department for chief complaint of lumps on his neck and head. Patient states he noticed swelling 2 days ago on his left neck. He states the area behind his left ear appeared yesterday. He denies any associated fever. He states the areas are sore to touch. He has not taken pain medication at home. He did see his primary care doctor for the lesion on his neck on 02/24/2019 and was started on prednisone and Keflex. This has improved the size and tenderness to the left neck lesion. He presented today because of the one behind his left ear. Patient does have a history of adrenal cancer and recent adrenal gland removal. Patient denies chest pain, shortness of breath, cough, nausea/vomiting and abdominal pain. Past Medical History: Adrenal cancer Past Surgical History: Adrenal gland resection Social History: Reviewed in chart Family History: Reviewed and noncontributory for presenting illness Allergies: Reviewed, see documented allergy list. REVIEW OF SYSTEMS: CONSTITUTIONAL : No fever No chills No diaphoresis No recent illness EENT: No vision changes No congestion No sore throat CARDIOVASCULAR: No chest pain No palpitations RESPIRATORY: No shortness of breath No cough No difficulty breathing GASTROINTESTINAL: No abdominal pain No nausea No vomiting No diarrhea GENITOURINARY: No dysuria No hematuria No difficulty urinating MUSCULOSKELETAL: No back pain No leg pain Neck pain No arm pain SKIN: No rashes lesions LYMPHATIC: No swollen, enlarged glands. NEUROLOGICAL: No lightheadedness No headache No weakness No paresthesias PSYCHIATRIC: No anxiety No depression PHYSICAL EXAMINATION: Vital signs reviewed, nursing noted reviewed. GENERAL: Well-appearing, well-nourished and in no acute distress. HEAD: Atraumatic, normocephalic. EYES: Eyes appear normal, extraocular movements intact, sclera anicteric, conjunctiva are normal. ENT: Single isolated left posterior auricular lymphadenopathy with tenderness, nares patent, oropharynx clear without exudates. Moist mucous membranes. NECK: Normal range of motion, supple, isolated enlarged left supraclavicular lymphadenopathy with tenderness. LUNGS: Breath sounds clear to auscultation bilaterally and equal. No wheezes rales or rhonchi. HEART: Regular rate and rhythm without murmurs ABDOMEN: Soft, nontender, normoactive bowel sounds. No rebound, guarding, or rigidity. No masses appreciated. EXTREMITIES: Nontender, good range of motion, no pitting or edema. NEUROLOGICAL: No focal neurological deficits. Moves all extremities spontaneously Motor and sensory grossly intact on exam. PSYCH: Normal mood, normal affect. SKIN: Warm, Dry, normal turgor, no rashes or lesions noted on exposed skin - Related Data Allergies/Adverse Reactions: No Known Allergies Allergy (Verified 01/31/19 20:42) Past Medical History - Social History Smoking Status: Unknown if Ever Smoked Family History: Reviewed & Not Pertinent, Other - Past Medical History Cardiac Medical History: Reports: Hx Hypertension Pulmonary Medical History: Reports: Hx Asthma, Hx COPD Renal/ Medical History: Denies: Hx Peritoneal Dialysis Musculoskeletal Medical History: Reports Hx Musculoskeletal Trauma Psychiatric Medical History: Reports: Hx Bipolar Disorder, Hx Depression Past Surgical History: Reports: Hx Orthopedic Surgery - plate/screws in toe - Immunizations Hx Diphtheria, Pertussis, Tetanus Vaccination: Yes Physical Exam - Vital signs Vitals: Temp Pulse Resp BP Pulse Ox 97.6 F 92 20 117/66 98 02/26/19 00:03 02/26/19 00:03 02/26/19 00:03 02/26/19 00:03 02/26/19 00:03 Course - Re-evaluation Re-evalutation: 02/26/19 02:10 Vitals reviewed. Nursing notes reviewed. Patient is well-appearing and in no acute distress. He is afebrile and nontoxic. He has 2 enlarged lymph nodes one in his left supraclavicular region and one left posterior auricular. He is currently on prednisone and Keflex for lymphadenitis as prescribed by his PCP and reports it was improving his left supraclavicular region. Patient states he is scheduled for outpatient CT on Saturday of his neck. I did offer to obtain the CT scan in the ED today which he has declined. He is otherwise well- appearing and I do not see indication for further work-up in the ED. He will continue taking medications as prescribed by his PCP. I did advise him to follow with his PCP in the next 1 to 2 days for reevaluation if the lymph nodes continue to enlarge. He will return to the emergency room for new concerning symptoms. Patient in agreement with plan of care and stable at discharge. - Vital Signs Vital signs: Temp Pulse Resp BP Pulse Ox 97.6 F 92 20 117/66 98 02/26/19 00:03 02/26/19 00:03 02/26/19 00:03 02/26/19 00:03 02/26/19 00:03 Discharge - Discharge Clinical Impression: Lymphadenopathy of head and neck Condition: Stable Disposition: HOME, SELF-CARE Instructions: Lymphadenopathy ([facility]) Additional Instructions: Please return to the emergency department if you have any worsening, or concern of your symptoms. Please return to the emergency department if you develop chest pain, difficulty breathing, severe abdominal pain, or ongoing vomiting. Please follow-up with your primary care physician in 2-3 days and any other recommended physicians. If prescribed, take all medications as directed. If you have any questions or concerns do not hesitate to return the emergency department for evaluation. Continue taking the medications prescribed by Dr. Raymond as directed
[2019-02-26 02:42] VITALS: BP 110/66
== END 2019-02-26 02:39 | disposition home or self-care (01) ==
LOC: ER 00:01
DX: R59.0 Localized enlarged lymph nodes (principal); R51 Headache; Z85.89 Personal history of malignant neoplasm of other organs and systems; I10 Essential (primary) hypertension; J44.9 Chronic obstructive pulmonary disease, unspecified
CPT/HCPCS: 99283

== ENCOUNTER 2019-03-04 20:23 | Emergency (ER) | payer OTHER ==
[2019-03-04 22:51] LABS: HEMATOCRIT 40.8 % (37.9-51.0); MEAN CORPUSCULAR HEMOGLOBIN 29.7 pg (27.0-33.4); MEAN CORPUSCULAR HGB CONC 34.4 g/dL (32.0-36.0); MEAN CORPUSCULAR VOLUME 87 fl (80-97); PLATELET COUNT 227 10^3/uL (150-450); RED BLOOD COUNT 4.72 10^6/uL (4.35-5.55); RED CELL DISTRIBUTION WIDTH 18.4 % (11.5-14.0); WHITE BLOOD COUNT 9.3 10^3/uL (4.0-10.5)
--- NOTE | 2019-03-04 23:06 | RADIOLOGY REPORT (SQ) ---
EXAM DESCRIPTION: [facility]: XR CHEST 1 VIEW CLINICAL HISTORY: 53 years Male, chest pain COMPARISON: 12/21/2012 FINDINGS: Lungs are clear, with no focal infiltrate, pneumothorax, or pleural effusion. Mediastinum is within normal limits for this positioning. Bony structures are unremarkable. IMPRESSION: 1. No acute pulmonary findings.
[2019-03-04 23:17] LABS: ALANINE AMINOTRANSFERASE 14 U/L (21-72); ALBUMIN 4.4 g/dL (3.5-5.0); ALKALINE PHOSPHATASE 95 U/L (38-126); ANION GAP 14 (5-19); ASPARTATE AMINO TRANSFERASE 44 U/L (17-59); BILIRUBIN,DIRECT 0.4 mg/dL (0.0-0.4); BILIRUBIN,TOTAL 0.7 mg/dL (0.2-1.3); BLOOD UREA NITROGEN 13 mg/dL (7-20); CALCIUM 9.2 mg/dL (8.4-10.2); CARBON DIOXIDE 23 mmol/L (22-30); CHLORIDE 102 mmol/L (98-107); CREATINE KINASE 22 U/L (55-170); GLUCOSE 86 mg/dL (75-110); POTASSIUM 3.6 mmol/L (3.6-5.0); TOTAL PROTEIN 8.3 g/dL (6.3-8.2)
[2019-03-04 23:18] LABS: ABSOLUTE LYMPHOCYTES# (MANUAL) 6.3 10^3/uL (0.5-4.7); ABSOLUTE MONOCYTES # (MANUAL) 0.5 10^3/uL (0.1-1.4); ANISOCYTOSIS 1+; BASOPHILS % (MANUAL) 0 % (0-2); EOSINOPHILS % (MANUAL) 4 % (0-6); MONOCYTES % (MANUAL) 5 % (3-13); SEGMENTED NEUTROPHILS % (MAN) 23 % (42-78); TOTAL CELLS COUNTED 100
[2019-03-04 23:19] LABS: LYMPHOCYTES % (MANUAL) 68 % (13-45)
[2019-03-04 23:20] LABS: PLATELET COMMENT ADEQUATE
[2019-03-04 23:30] LABS: CREATINE KINASE MB 0.31 ng/mL (<4.55)
[2019-03-04 23:33] LABS: TROPONIN I < 0.012 ng/mL
[2019-03-05] MEDS ORDERED: FENTANYL CITRATE INJ/PF 100 MCG/2 ML AMPUL IV ONE (00:13)
--- NOTE | 2019-03-05 00:51 | RADIOLOGY REPORT (SQ) ---
EXAM DESCRIPTION: CT ABDOMEN PELVIS WITH IV CONTRAST COMPLETED DATE/TME: 03/04/2019 22:04 CLINICAL HISTORY: 53 years, Male, lower abd pain. CREAT 0.77 COMPARISON: 01/26/2019 TECHNIQUE: Serial CT images of the abdomen and pelvis were obtained after the injection of IV contrast. Sagittal and coronal reformats were performed. DLP 559 Images stored on PACS. All CT scanners at this facility use dose modulation, iterative reconstruction, and/or weight based dosing when appropriate to reduce radiation dose to as low as reasonably achievable (ALARA). [facility]: Dose Right [facility]: CareDose [facility]: Dose Right [facility]: Teradose 4D [facility]: [employer] LIMITATIONS: None. FINDINGS: Lung bases are clear. The liver, gallbladder, and pancreas are unremarkable. The spleen is enlarged measuring 15.6 cm. The left adrenal gland is surgically absent. The right adrenal gland appears grossly unremarkable. Both kidneys appear unremarkable. No evidence of hydronephrosis or hydroureter. There is an aortocaval lymph node that measures 1.1 cm in size, previously measuring 1.5 cm. The bilateral external iliac lymph nodes are slightly decreased in size and measure 1.8 x 2.6 cm on the right and 2.0 x 2.9 cm on the left, previously measuring 2.2 x 2.9 cm on the right and 2.2 x 2.2 cm on the left. There is no intraperitoneal free air or fluid. The abdominal aorta is normal in caliber. The stomach and small bowel are unremarkable. The appendix is not uniquely identified. The colon is incompletely distended. The urinary bladder and prostate gland appear unremarkable. There are no lytic or blastic bone lesions. IMPRESSION: No acute findings. Slightly improving retroperitoneal and pelvic adenopathy. Stable splenomegaly. TECHNICAL DOCUMENTATION: Quality ID # [id number]: Final reports with documentation of one or more dose reduction techniques (e.g., Automated exposure control, adjustment of the mA and/or kV according to patient size, use of iterative reconstruction technique) copyright 2011 [employer]- All Rights Reserved
--- NOTE | 2019-03-05 01:07 | ER Document Report ---
ED Cardiac - General Chief Complaint: Chest Pain Stated Complaint: ABDOMINAL PAIN Time Seen by Provider: 03/04/19 21:47 TRAVEL OUTSIDE OF THE [place] IN LAST 30 DAYS: No - Related Data Allergies/Adverse Reactions: No Known Allergies Allergy (Verified 01/31/19 20:42) Past Medical History - Social History Smoking Status: Never Smoker Frequency of alcohol use: None Drug Abuse: None Family History: Reviewed & Not Pertinent, Other Patient has suicidal ideation: No Patient has homicidal ideation: No - Past Medical History Cardiac Medical History: Reports: Hx Hypertension Pulmonary Medical History: Reports: Hx Asthma, Hx COPD Renal/ Medical History: Denies: Hx Peritoneal Dialysis Musculoskeletal Medical History: Reports Hx Musculoskeletal Trauma Psychiatric Medical History: Reports: Hx Bipolar Disorder, Hx Depression Past Surgical History: Reports: Hx Orthopedic Surgery - plate/screws in toe - Immunizations Hx Diphtheria, Pertussis, Tetanus Vaccination: Yes Physical Exam - Vital signs Vitals: Temp Pulse Resp BP Pulse Ox 97.6 F 82 20 112/61 99 03/04/19 20:51 03/04/19 20:51 03/04/19 20:51 03/04/19 20:51 03/04/19 20:51 Course - Vital Signs Vital signs: Temp Pulse Resp BP Pulse Ox 97.6 F 82 23 H 132/80 H 100 03/04/19 20:51 03/04/19 20:51 03/04/19 22:33 03/04/19 22:33 03/04/19 22:33 - Laboratory Result Diagrams: 03/04/19 22:30 03/04/19 22:30 Laboratory results interpreted by me: 03/04/19 03/04/19 22:30 22:30 RDW 18.4 H Seg Neuts % (Manual) 23 L Lymphocytes % (Manual) 68 H Abs Lymphs (Manual) 6.3 H ALT 14 L Creatine Kinase 22 L Total Protein 8.3 H
--- NOTE | 2019-03-05 01:10 | ER Document Report ---
ED Cardiac - General Chief Complaint: Chest Pain Stated Complaint: ABDOMINAL PAIN Time Seen by Provider: 03/04/19 21:47 Primary Care Provider: THOMAS NEGRO MD [ACTIVE STAFF] - Follow up in 3-5 days Notes: Patient is a 53-year-old male who presents the emergency department with a chief complaint of chest pain and abdominal pain. He states that his symptoms started today. He also states that his back hurt today. He states the pain is in the right side of his chest. Patient has a past surgical story of left adrenal gland removal in August of this year. He had that done in [place]. Patient states that he was also sent to have a scan of his head to check his pituitary gland by Dr. Negro, but did not go due to his finances. TRAVEL OUTSIDE OF THE [place] IN LAST 30 DAYS: No - Related Data Allergies/Adverse Reactions: No Known Allergies Allergy (Verified 01/31/19 20:42) Past Medical History - Social History Smoking Status: Never Smoker Frequency of alcohol use: None Drug Abuse: None Family History: Reviewed & Not Pertinent, Other Patient has suicidal ideation: No Patient has homicidal ideation: No - Past Medical History Cardiac Medical History: Reports: Hx Hypertension Pulmonary Medical History: Reports: Hx Asthma, Hx COPD Renal/ Medical History: Denies: Hx Peritoneal Dialysis Musculoskeletal Medical History: Reports Hx Musculoskeletal Trauma Psychiatric Medical History: Reports: Hx Bipolar Disorder, Hx Depression Past Surgical History: Reports: Hx Orthopedic Surgery - plate/screws in toe - Immunizations Hx Diphtheria, Pertussis, Tetanus Vaccination: Yes Review of Systems - Review of Systems Notes: REVIEW OF SYSTEMS: CONSTITUTIONAL : Denies recent illness. Denies recent unintentional weight loss. Denies fever, chills, or sweats. EENT: Denies eye, ear, throat, or mouth pain, discharge, or symptoms. Denies nasal or sinus congestion. CARDIOVASCULAR: See HPI RESPIRATORY: Denies shortness of breath, cough, congestion, difficulty breathing , or wheezing. GASTROINTESTINAL: See HPI GENITOURINARY: Denies difficulty urinating, burning, blood in urine, urgency or frequency. MUSCULOSKELETAL: Denies neck and back pain. Denies joint pain or swelling. SKIN: Denies rash, itchiness, or lesions HEMATOLOGIC : Denies easy bruising or bleeding. LYMPHATIC: Denies swollen, painful, enlarged glands. NEUROLOGICAL: Denies no numbness or tingling denies weakness. Denies headache. Denies altered mental status. Denies alteration in speech. PSYCHIATRIC: Denies stress, anxiety, alteration in sleep patterns, or depression. All other systems reviewed and negative. Physical Exam - Vital signs Vitals: Temp Pulse Resp BP Pulse Ox 97.6 F 82 20 112/61 99 03/04/19 20:51 03/04/19 20:51 03/04/19 20:51 03/04/19 20:51 03/04/19 20:51 - Notes Notes: PHYSICAL EXAMINATION: GENERAL: Appears well, healthy, well-nourished, no acute distress. HEAD: Normocephalic, atraumatic. EYES: PERRL, conjunctiva normal, all extraocular movements intact, sclera nonicteric ENT: Moist mucous membranes. NECK: Supple, no noticeable swelling, redness, rash. Normal range of motion. LUNGS: Equal breath sounds bilaterally and clear to auscultation. No wheezes rales or rhonchi. CARDIOVASCULAR: S1-S2, regular rate, regular rhythm. Radial pulses 2+, normal. ABDOMEN: Normoactive bowel sounds. Soft, very tender mid upper abdomen. EXTREMITIES: Normal strength and range of motion, no pitting or edema. No cyanosis. NEUROLOGICAL: Moves all extremities upon command. Strength 5/5 in all extremities. PSYCH: Normal mood, normal affect. SKIN: Warm, dry. No rash, lesions, ulcerations noted. Normal skin turgor. Course - Re-evaluation Re-evalutation: 03/05/19 02:[address] of the abdomen and pelvis are actually improved from his previous CT. Awaiting urinalysis. Hematology, chemistries, lipase, and troponin are normal. His EKG is normal. 03/05/19 04:14 Patient's urinalysis is normal at this time. I am unsure to what the cause of his abdominal pain is. I discussed this case with Dr. Barnes. She is recommending patient follow-up with his primary care provider. The patient will be discharged and follow-up with his primary care provider. I spoke to the patient again and he was just recently placed on prednisone. Possibly the cause of his abdominal pain. He will start him on Carafate and Pepcid to see if this will help. About a month ago he was also started on Keflex for a rash and he still has some pills left in the bottle. I had a conversation with him about making sure he finishes his antibiotics. I discussed with him that if he is concerned about his pituitary gland, he needs to follow-up with Dr. Negro, as Dr. Negro ordered a scan for his head. The patient has no neurological deficits noted. At this time the patient's vital signs are stable. Patient will follow-up with his primary care provider and . Follow-up precautions were given. Verbal discharge instructions were given to the patient . They verbalized understanding. They are stable for discharge. - Vital Signs Vital signs: Temp Pulse Resp BP Pulse Ox 97.6 F 83 14 123/66 99 03/05/19 04:39 03/05/19 04:39 03/05/19 04:39 03/05/19 04:39 03/05/19 04:39 - Laboratory Result Diagrams: 03/04/19 22:30 03/04/19 22:30 Laboratory results interpreted by me: 03/04/19 03/04/19 22:30 22:30 RDW 18.4 H Seg Neuts % (Manual) 23 L Lymphocytes % (Manual) 68 H Abs Lymphs (Manual) 6.3 H ALT 14 L Creatine Kinase 22 L Total Protein 8.3 H - EKG Interpretation by Me Additional EKG results interpreted by me: 03/05/19 04:22 Sinus rhythm. Rate 77. FL 116; QRS 92; QT 368; QTc 417. No ST elevations or depressions noted. No acute change from previous EKG done on December 01, 2016. Discharge - Discharge Clinical Impression: Abdominal pain Qualifiers: Abdominal location: generalized Qualified Code(s): R10.84 - Generalized abdominal pain Condition: Stable Disposition: HOME, SELF-CARE Additional Instructions: You were seen today in the emergency department for abdominal pain. Your CT scan did not show any new findings. It was actually better than your previous CT scan. Your labs are all normal and your x-ray and EKG are normal. Please start Pepcid and Carafate to help with your abdominal pain. Please follow-up with your primary care provider in regards to this visit. Please follow-up with Dr. Raymond in regards to this visit. Please also follow-up with Dr. Negro to have your MRI reordered. Prescriptions: Famotidine [Pepcid 20 mg Tablet] 20 mg PO BID #12 tablet Sucralfate [Carafate 1 gm Tablet] 1 gm PO ACHS #20 tablet Referrals: THOMAS NGERO MD [ACTIVE STAFF] - Follow up in 3-5 days
[2019-03-05 03:43] LABS: APPEARANCE,URINE CLEAR; BILIRUBIN,URINE NEGATIVE (NEGATIVE); COLOR,URINE YELLOW; GLUCOSE, URINE NEGATIVE (NEGATIVE); KETONES,URINE NEGATIVE (NEGATIVE); LEUKOCYTE ESTERASE,URINE NEGATIVE (NEGATIVE); NITRITE,URINE NEGATIVE (NEGATIVE); PROTEIN,URINE NEGATIVE (NEGATIVE); UROBILINOGEN,URINE NEGATIVE mg/dL (<2.0)
[2019-03-05 03:55] LABS: URINE SPECIFIC GRAVITY > 1.060
[2019-03-05] MEDS ORDERED: SUCRALFATE 1 GM TABLET PO ONE (04:21)
[2019-03-05] MEDS ORDERED: FAMOTIDINE 20 MG TABLET PO ONE (04:21)
[2019-03-05 04:40] VITALS: BP 123/66
[2019-03-05 13:06] LABS: PATH REVIEW PATHOLOGIST REVIEWED
--- NOTE | 2019-03-05 18:18 | EKG REPORT ---
SEVERITY:- NORMAL ECG - SINUS RHYTHM : Confirmed by: Laury Santizo MD 05-Mar-2019 18:17:59
== END 2019-03-05 04:45 | disposition home or self-care (01) ==
LOC: ER 20:23
DX: R10.84 Generalized abdominal pain (principal); R07.9 Chest pain, unspecified; E89.6 Postprocedural adrenocortical (-medullary) hypofunction; I10 Essential (primary) hypertension; J44.9 Chronic obstructive pulmonary disease, unspecified
CPT/HCPCS: 93005; 99285; 96374; 36415; 82553; 82550; 83690; 85025; 80053; 81001; 84484; 71045; 74177; 93010; J3010

== ENCOUNTER 2019-03-28 19:08 | Emergency (ER) | payer OTHER ==
--- NOTE | 2019-03-28 19:36 | ER Document Report ---
ED Medical Screen (RME) - General Chief Complaint: General Weakness Stated Complaint: LOW SODIUM Time Seen by Provider: 03/28/19 19:21 TRAVEL OUTSIDE OF THE [place] IN LAST 30 DAYS: No - HPI Notes: 03/28/19 19:33 53-year-old male to the emergency department with complaints of low sodium and weakness. He said he saw his primary care physician earlier this week and was told that his sodium was very low. He states that his primary care physician wanted him to come to the emergency department for further evaluation but instead they made a plan for him to have his labs redrawn early this upcoming week and then follow-up closely. He states that the time that he was told that his sodium was low that he did not have any symptoms. States that he was mowing his lawn today when he began to feel acutely weak in both of his legs and lightheaded like he was in a pass out. He states that he is very concerned about his low sodium because as a child he had a history of low sodium and had to take salt supplements. He states that he is a drinker. He drinks to 24 ounces of beer every single day. He states he has had to 24 ounces of beer today. He denies any history of seizures. He states that he does have overall mental cloudiness. He knows himself, where he is, the date, and who is president but he states he has a very difficult time keeping up with all of his appointments and what his physicians are trying to do. He denies any chest pain or shortness of breath. Performed a medical screening exam on this patient and placed initial orders. - Related Data Allergies/Adverse Reactions: No Known Allergies Allergy (Verified 01/31/19 20:42) Past Medical History - Past Medical History Cardiac Medical History: Reports: Hx Hypertension Pulmonary Medical History: Reports: Hx Asthma, Hx COPD Renal/ Medical History: Denies: Hx Peritoneal Dialysis Musculoskeltal Medical History: Reports Hx Musculoskeletal Trauma Psychiatric Medical History: Reports: Hx Bipolar Disorder, Hx Depression Past Surgical History: Reports: Hx Orthopedic Surgery - plate/screws in toe - Immunizations Hx Diphtheria, Pertussis, Tetanus Vaccination: Yes Physical Exam - General General appearance: Alert, Anxious In distress: None - Respiratory Respiratory status: No respiratory distress Chest status: Nontender Breath sounds: Normal Chest palpation: Normal - Cardiovascular Rhythm: Tachycardia Heart sounds: Normal auscultation - Abdominal Inspection: Normal Distension: No distension Bowel sounds: Normal Tenderness: Nontender Organomegaly: No organomegaly - Neurological Neuro grossly intact: Yes Cognition: Normal Orientation: AAOx4 [place] Coma Scale Eye Opening: Spontaneous [place] Coma Scale Verbal: Oriented Cedric Coma Scale Motor: Obeys Commands [place] Coma Scale Total: 15 Speech: Normal Cranial nerves: Normal. No: Facial palsy, Forehead sparing, Gaze palsy, Sensory deficit, Tongue deviation Motor strength normal: LUE, RUE, LLE, RLE Sensory: Normal
--- NOTE | 2019-03-28 19:52 | ER Document Report ---
ED General - General Stated Complaint: LOW SODIUM Time Seen by Provider: 03/28/19 19:21 Mode of Arrival: Ambulatory Information source: Patient, [facility] Records Notes: 53-year-old male with hypertension, chronic history of hyponatremia, asthma, previous history of adrenal mass with a left adrenal gland removal in August 2018 presents to the emergency department with complaints of low sodium and weakness. He said he saw his primary care physician earlier this week and was told that his sodium was very low. He states that his primary care physician wanted him to come to the emergency department for further evaluation but instead they made a plan for him to have his labs redrawn early this upcoming week and then follow-up closely. He states that the time that he was told that his sodium was low that he did not have any symptoms. States that he was mowing his lawn today when he began to feel acutely weak in both of his legs and lightheaded like he was in a pass out. He states that he is very concerned abou t his low sodium because as a child he had a history of low sodium and had to take salt supplements. He states that he is a drinker. He drinks to 48 ounces of beer every single day. He states he has had to 48 ounces of beer today. He denies any history of seizures. He states that he does have overall mental cloudiness. He knows himself, where he is, the date, and who is president but he states he has a very difficult time keeping up with all of his appointments and what his physicians are trying to do. He denies any chest pain or shortness of breath. Patient also reports that the reason for the blood work was a decrease in appetite for over 2 weeks. He states that whenever he did eat he became nauseous. He denies any recent nausea or vomiting. Patient's primary care physician is Dr. Raymond. TRAVEL OUTSIDE OF THE [place] IN LAST 30 DAYS: No - HPI Onset: Other Onset/Duration: Gradual, Persistent Quality of pain: Achy Severity: Mild Pain Level: 1 Associated symptoms: Body/muscle aches, Nausea, Shortness of breath, Slow to respond, Weakness. denies: Chest pain, Nonproductive cough, Productive cough, Fever, Headache, Hurts to breath, Vomiting Exacerbated by: Movement Relieved by: Denies Similar symptoms previously: Yes Recently seen / treated by doctor: Yes - Related Data Allergies/Adverse Reactions: No Known Allergies Allergy (Verified 01/31/19 20:42) Past Medical History - General Information source: Patient, [facility] Records - Social History Smoking Status: Never Smoker Frequency of alcohol use: Heavy Drug Abuse: None Lives with: Family Family History: Reviewed & Not Pertinent, Other - Past Medical History Cardiac Medical History: Reports: Hx Hypertension Pulmonary Medical History: Reports: Hx Asthma, Hx COPD Renal/ Medical History: Denies: Hx Peritoneal Dialysis Musculoskeletal Medical History: Reports Hx Musculoskeletal Trauma Psychiatric Medical History: Reports: Hx Bipolar Disorder, Hx Depression Past Surgical History: Reports: Hx Orthopedic Surgery - plate/screws in toe - Immunizations Hx Diphtheria, Pertussis, Tetanus Vaccination: Yes Review of Systems - Review of Systems Constitutional: Malaise, Weakness, Other - Decreased appetite. denies: Weight loss EENT: denies: Blurred vision, Double vision, Difficulty swallowing Cardiovascular: Dizziness, Lightheaded. denies: Chest pain, Palpitations Respiratory: Short of breath. denies: Cough, Wheezing Gastrointestinal: Abdominal pain, Nausea, Poor appetite, Poor fluid intake. denies: Diarrhea, Vomiting, Rectal bleeding Genitourinary: denies: Dysuria, Flank pain, Retention Male Genitourinary: No symptoms reported Musculoskeletal: Muscle pain Skin: denies: Rash Hematologic/Lymphatic: No symptoms reported Neurological/Psychological: Weakness. denies: Paralysis, Headaches -: Yes All other systems reviewed and negative Physical Exam - Vital signs Vitals: Resp Pulse Ox 20 100 03/28/19 19:31 03/28/19 19:31 - Notes Notes: PHYSICAL EXAMINATION: GENERAL: Well-appearing, well-nourished and in no acute distress. HEAD: Atraumatic, normocephalic. EYES: Pupils equal round and reactive to light, extraocular movements intact, sclera anicteric, conjunctiva are normal. ENT: Nares patent, oropharynx clear without exudates. Moist mucous membranes. NECK: Normal range of motion, supple without lymphadenopathy LUNGS: Breath sounds clear to auscultation bilaterally and equal. No wheezes rales or rhonchi. HEART: Regular rate and rhythm without murmurs ABDOMEN: Soft, epigastric abdominal tenderness with palpation, nondistended abdomen. No guarding, no rebound. No masses appreciated. Musculoskeletal: Normal range of motion, no pitting or edema. No cyanosis. NEUROLOGICAL: Mental status; alert and oriented x3. Cranial nerves II through XII intact. Sensation intact to sharp/dull differentiation in all extremities. Motor; normal tone. No abnormal movements appreciated. No pronator drift. Strength tested and 5/5 in bilateral wrist flexion/extension, elbow flexion/e xtension, shoulder abduction, straight leg raise, knee flexion/extension, ankle dorsiflexion/plantar flexion. Patient ambulates with a steady gait. Coordination; no ataxia. Finger to nose and heel to sow testing intact bilaterally.Reflexes; brachial radialis, biceps, and patellar reflexes within normal limits and symmetric bilaterally. Babinski with downgoing toes bilaterally. NIH 0 PSYCH: Normal mood, normal affect. SKIN: Warm, Dry, normal turgor, no rashes or lesions noted. Course - Re-evaluation Re-evalutation: 03/29/19 06:37 Laboratory 03/28/19 03/28/19 03/28/19 20:02 20:02 20:02 WBC 9.3 RBC 4.52 Hgb 13.6 Hct 39.2 MCV 87 MCH 30.1 MCHC 34.8 RDW 16.0 H Plt Count 345 Lymph % (Auto) 44.4 Williamson % (Auto) 5.7 Eos % (Auto) 22.6 H Baso % (Auto) 2.0 Absolute Neuts (auto) 2.3 Absolute Lymphs (auto) 4.1 Absolute Monos (auto) 0.5 Absolute Eos (auto) 2.1 H Absolute Basos (auto) 0.2 Seg Neutrophils % 25.3 L Sodium 139.0 Potassium 4.6 Chloride 102 Carbon Dioxide 25 Anion Gap 12 BUN 14 Creatinine 1.08 Est GFR ( Amer) > 60 Est GFR (MDRD) Non-Af > 60 Glucose 85 Calcium 9.8 Phosphorus 5.3 H Magnesium 2.1 Total Bilirubin 0.2 Direct Bilirubin 0.2 Neonat Total Bilirubin Not Reportable Neonat Direct Bilirubin Not Reportable Neonat Indirect Bili Not Reportable AST 28 ALT 12 Alkaline Phosphatase 119 Creatine Kinase 22 L CK-MB (CK-2) 0.32 Troponin I < 0.012 Total Protein 7.2 Albumin 3.8 Lipase 69.9 Urine Color Urine Appearance Urine pH Ur Specific [place] Urine Protein Urine Glucose (UA) Urine Ketones Urine Blood Urine Nitrite Urine Bilirubin Urine Urobilinogen Ur Leukocyte Esterase Urine WBC (Auto) Urine RBC (Auto) Urine Mucus (Auto) Urine Ascorbic Acid Urine Opiates Screen Urine Methadone Screen Ur Barbiturates Screen Ur Phencyclidine Scrn Ur Amphetamines Screen U Benzodiazepines Scrn Urine Cocaine Screen U Marijuana (THC) Screen Serum Alcohol 159 03/28/19 03/28/19 20:48 20:48 WBC RBC Hgb Hct MCV MCH MCHC RDW Plt Count Lymph % (Auto) Williamson % (Auto) Eos % (Auto) Baso % (Auto) Absolute Neuts (auto) Absolute Lymphs (auto) Absolute Monos (auto) Absolute Eos (auto) Absolute Basos (auto) Seg Neutrophils % Sodium Potassium Chloride Carbon Dioxide Anion Gap BUN Creatinine Est GFR ( Amer) Est GFR (MDRD) Non-Af Glucose Calcium Phosphorus Magnesium Total Bilirubin Direct Bilirubin Neonat Total Bilirubin Neonat Direct Bilirubin Neonat Indirect Bili AST ALT Alkaline Phosphatase Creatine Kinase CK-MB (CK-2) Troponin I Total Protein Albumin Lipase Urine Color STRAW Urine Appearance CLEAR Urine pH 5.0 Ur Specific [place] 1.009 Urine Protein NEGATIVE Urine Glucose (UA) NEGATIVE Urine Ketones NEGATIVE Urine Blood NEGATIVE Urine Nitrite NEGATIVE Urine Bilirubin NEGATIVE Urine Urobilinogen NEGATIVE Ur Leukocyte Esterase NEGATIVE Urine WBC (Auto) 0 Urine RBC (Auto) 0 Urine Mucus (Auto) RARE Urine Ascorbic Acid NEGATIVE Urine Opiates Screen NEGATIVE Urine Methadone Screen NEGATIVE Ur Barbiturates Screen NEGATIVE Ur Phencyclidine Scrn NEGATIVE Ur Amphetamines Screen NEGATIVE U Benzodiazepines Scrn NEGATIVE Urine Cocaine Screen NEGATIVE U Marijuana (THC) Screen NEGATIVE Serum Alcohol Chest X-Ray 03/28/19 19:42 IMPRESSION: No acute abnormality is identified. Head CT 03/28/19 19:42 IMPRESSION: No acute intracranial abnormality is identified. Generalized atrophy with microvascular ischemic changes. Abdomen/Pelvis CT 03/28/19 19:53 IMPRESSION: Retroperitoneal, mesenteric and iliac and inguinal adenopathy and splenomegaly. 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 Patient reports that recent blood work obtained by his primary care physician showed hyponatremia which he reports is a chronic problem for him. Patient became concerned when mowing the lawn today he suddenly became dizzy, nauseous. Patient does admit to daily alcohol use. Patient has a normal neurologic exam and benign abdominal exam. Except for a blood alcohol level of 159 patient's labs are completely unremarkable. Incidental findings found on CT were discussed with the patient and he was provided a copy of his imaging to take to his primary care physician. No evidence of hyponatremia on lab work. Patient's dizziness, lightheadedness, nausea is likely secondary to alcohol intoxication and heat exposure. Patient did receive IV fluids, Zofran. 03/29/19 06:40 03/29/19 06:41 Patient was evaluated and treated as appropriate for the patient's presenting symptoms and complaint, with consideration of any critical or life threatening conditions that may be associated with their obtained history and exam as noted above. All results were discussed with patient . Patient provided the opportunity to ask questions, and express concerns. Patient was educated on treatments based on their presumed diagnosis as noted above. At this time we will discharge the patient with return precautions and follow-up recom mendations. Verbal discharge instructions given a the bedside. Medication warnings reviewed. Patient is in agreement with this plan and has verbalized understanding of return precautions. After careful consideration I feel that that patient can be safely discharged from the emergency department, they were advised to followup with a primary care physician in 2-3 days. Dictation on this chart was performed using voice recognition software and may result in unintended grammatical, spelling, syntax or errors. - Vital Signs Vital signs: Temp Pulse Resp BP Pulse Ox 98.2 F 95 18 112/71 100 03/29/19 00:01 03/28/19 21:22 03/29/19 00:01 03/29/19 00:01 03/29/19 00:01 - Laboratory Result Diagrams: 03/28/19 20:02 03/28/19 20:02 Laboratory results interpreted by me: 03/28/19 03/28/19 20:02 20:02 RDW 16.0 H Eos % (Auto) 22.6 H Absolute Eos (auto) 2.1 H Seg Neutrophils % 25.3 L Phosphorus 5.3 H Creatine Kinase 22 L - Diagnostic Test Radiology reviewed: Image reviewed, Reports reviewed - EKG Interpretation by Me EKG shows normal: Sinus rhythm Rate: Tachycardia Rhythm: NSR When compared to previous EKG there are: No significant change Discharge - Discharge Clinical Impression: Dizziness, Adenopathy, Splenomegaly Alcohol intoxication Qualifiers: Complication of substance-induced condition: uncomplicated Qualified Code(s): F10.920 - Alcohol use, unspecified with intoxication, uncomplicated Condition: Good Disposition: HOME, SELF-CARE Instructions: Acute Alcohol Intoxication ([facility]), Dizziness ([facility]) Additional Instructions: Your sodium is completely normal here. You will be provided copies of your lab and imaging that was performed today. Please bring these to your primary care physician. Follow up with your [id number] hours for further care or return to the ED IMMEDIATELY if symptoms worsen or you have any concerns. If you cannot afford to follow up with your primary care physician a list of low cost clinics have been provided at the end of your discharge papers as well. Most prescribed medications have multiple side effects. The safest thing to do is when filling your prescription speak to your pharmacist regarding possible interactions with your normal home medications and over the counter medications such as Ibuprofen, Tylenol, Benadryl. If you experience any symptoms that cause you discomfort or concern you should discontinue the medication immediately and return to the emergency room or call your primary care physician. Forms: Smoking Cessation Education
[2019-03-28] MEDS ORDERED: IPRATROPIUM/ALBUTEROL 0.5-2.5 MG/3 ML AMPUL NEB ONE (19:55)
[2019-03-28] MEDS ORDERED: RINGERS SOLUTION,LACTATED 1,000 ML IV ONE (20:03)
[2019-03-28] MEDS ORDERED: ONDANSETRON HCL INJ/PF 4 MG/2 ML SDV IV ONE (20:03)
[2019-03-28 20:27] LABS: ABSOLUTE BASOPHILS # (AUTO) 0.2 10^3/uL (0.0-0.2); ABSOLUTE EOSINOPHILS # (AUTO) 2.1 10^3/uL (0.0-0.6); ABSOLUTE LYMPHOCYTES (AUTO) 4.1 10^3/uL (0.5-4.7); ABSOLUTE MONOCYTES (AUTO) 0.5 10^3/uL (0.1-1.4); ABSOLUTE NEUT (AUTO) 2.3 10^3/uL (1.7-8.2); EOSINOPHILS % (AUTO) 22.6 % (0-6); HEMATOCRIT 39.2 % (37.9-51.0); HEMOGLOBIN 13.6 g/dL (13.5-17.0); LYMPHOCYTES % (AUTO) 44.4 % (13-45); MEAN CORPUSCULAR HEMOGLOBIN 30.1 pg (27.0-33.4); MEAN CORPUSCULAR HGB CONC 34.8 g/dL (32.0-36.0); MEAN CORPUSCULAR VOLUME 87 fl (80-97); MONOCYTES % (AUTO) 5.7 % (3-13); PLATELET COUNT 345 10^3/uL (150-450); RED BLOOD COUNT 4.52 10^6/uL (4.35-5.55); SEGMENTED NEUTROPHILS % (AUTO) 25.3 % (42-78); TOTAL CELLS COUNTED % (AUTO) 100 %; WHITE BLOOD COUNT 9.3 10^3/uL (4.0-10.5)
[2019-03-28 20:45] LABS: ALBUMIN 3.8 g/dL (3.5-5.0); ALCOHOL 159 mg/dL (NONE DETECTED); ALKALINE PHOSPHATASE 119 U/L (38-126); ANION GAP 12 (5-19); ASPARTATE AMINO TRANSFERASE 28 U/L (17-59); BILIRUBIN,DIRECT 0.2 mg/dL (0.0-0.4); BILIRUBIN,TOTAL 0.2 mg/dL (0.2-1.3); BLOOD UREA NITROGEN 14 mg/dL (7-20); CALCIUM 9.8 mg/dL (8.4-10.2); CARBON DIOXIDE 25 mmol/L (22-30); CHLORIDE 102 mmol/L (98-107); CREATINE KINASE 22 U/L (55-170); GLUCOSE 85 mg/dL (75-110); PHOSPHORUS 5.3 mg/dL (2.5-4.5); POTASSIUM 4.6 mmol/L (3.6-5.0); TOTAL PROTEIN 7.2 g/dL (6.3-8.2)
[2019-03-28 20:59] LABS: APPEARANCE,URINE CLEAR; BILIRUBIN,URINE NEGATIVE (NEGATIVE); COLOR,URINE STRAW; GLUCOSE, URINE NEGATIVE (NEGATIVE); KETONES,URINE NEGATIVE (NEGATIVE); LEUKOCYTE ESTERASE,URINE NEGATIVE (NEGATIVE); NITRITE,URINE NEGATIVE (NEGATIVE); PROTEIN,URINE NEGATIVE (NEGATIVE); URINE SPECIFIC GRAVITY 1.009; UROBILINOGEN,URINE NEGATIVE mg/dL (<2.0)
[2019-03-28 21:00] LABS: CREATINE KINASE MB 0.32 ng/mL (<4.55)
[2019-03-28 21:02] LABS: TROPONIN I < 0.012 ng/mL
--- NOTE | 2019-03-28 21:17 | RADIOLOGY REPORT (SQ) ---
EXAM DESCRIPTION: XR CHEST 2 VIEWS COMPLETED DATE/TME: 03/28/2019 19:42 CLINICAL HISTORY: 53 years Male sob , known malignant lesion of the adrenal gland COMPARISON: 03/04/2019. FINDINGS: The cardiomediastinal silhouette appears unremarkable. No consolidating infiltrates or pleural effusions. No pneumothorax. Multilevel degenerative change in the thoracic spine. IMPRESSION: No acute abnormality is identified.
--- NOTE | 2019-03-28 23:02 | RADIOLOGY REPORT (SQ) ---
EXAM DESCRIPTION: CT HEAD WITHOUT IV CONTRAST COMPLETED DATE/TME: 03/28/2019 19:42 CLINICAL HISTORY: 53 years Male weakness COMPARISON: None. TECHNIQUE: Contiguous axial CT images obtained through the brain without IV contrast. This exam was performed according to our department optimization program which includes automated exposure control, adjustment of the mA and/or kv according to patient size and/or use of iterative reconstruction technique. FINDINGS: The ventricles and sulci are prominent consistent with atrophic changes. Microvascular ischemic changes. No midline shift or mass effect. No mass lesions. No acute hemorrhage. Atherosclerotic calcifications. No fluid or significant mucosal thickening in the visualized paranasal sinuses. No depressed calvarial fractures. IMPRESSION: No acute intracranial abnormality is identified. Generalized atrophy with microvascular ischemic changes.
--- NOTE | 2019-03-28 23:19 | RADIOLOGY REPORT (SQ) ---
EXAM DESCRIPTION: CT ABDOMEN PELVIS WITH IV CONTRAST COMPLETED DATE/TME: 03/28/2019 19:53 CLINICAL HISTORY: 53 years Male abd pain , adrenal neoplasm COMPARISON: 03/05/2019. 07/12/2018 TECHNIQUE: Contiguous axial images obtained through the abdomen and pelvis following IV contrast. Reformatted images obtained. This exam was performed according to our department optimization program which includes automated exposure control, adjustment of the mA and/or kv according to patient size and/or use of iterative reconstruction technique. FINDINGS: Fatty infiltration of the liver. Enlarged spleen measuring 14.5 x 17.4 cm. This appears larger than on the previous study with measurements are 15 x 15.7 cm. Pancreas is unremarkable. There is a fat attenuation adrenal mass on the right measuring 3 x 2.1 cm. The left adrenal gland is not clearly seen and appears to been resected.. The right adrenal mass appears The kidneys appear unremarkable. No hydronephrosis. The gallbladder is contracted. No aneurysmal dilatation of the aorta. There are small scattered retroperitoneal and upper abdominal lymph nodes this appears similar to the previous. No bowel obstruction. The appendix is clearly seen. There are scattered small mesenteric nodes which also appears similar. Significantly enlarged iliac and inguinal adenopathy bilaterally. Largest discrete node in the left external iliac node measures 2.7 x 3.3 cm compared to similar measurements of 2.2 x 2.9 cm. Right external iliac node measures 2.1 x 2.9 cm on image 65 compared to similar measurements of 1.8 x 2.6 cm. Largest lymph node in the anterior left inguinal region has a short axis measurement of 1.4 cm compared to 1 cm on the previous study. Right iliac lymph node at the bifurcation measures 1.8 cm compared to 1.5 cm. IMPRESSION: Retroperitoneal, mesenteric and iliac and inguinal adenopathy and splenomegaly. 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
[2019-03-28 23:42] LABS: URINE AMPHETAMINES SCREEN NEGATIVE; URINE BARBITURATES SCREEN NEGATIVE; URINE BENZODIAZEPINES SCREEN NEGATIVE; URINE COCAINE SCREEN NEGATIVE; URINE MARIJUANA (THC) SCREEN NEGATIVE; URINE METHADONE SCREEN NEGATIVE; URINE PHENCYCLIDINE SCREEN NEGATIVE
[2019-03-29 00:13] VITALS: BP 112/71
--- NOTE | 2019-03-29 09:32 | EKG REPORT ---
SEVERITY:- OTHERWISE NORMAL ECG - SINUS TACHYCARDIA : Confirmed by: Laury Santizo MD 29-Mar-2019 09:31:26
== END 2019-03-29 00:38 | disposition home or self-care (01) ==
LOC: ER 19:08
DX: R42 Dizziness and giddiness (principal); R59.9 Enlarged lymph nodes, unspecified; R16.1 Splenomegaly, not elsewhere classified; F10.920 Alcohol use, unspecified with intoxication, uncomplicated; R00.0 Tachycardia, unspecified; M79.10 Myalgia, unspecified site; R11.0 Nausea; I10 Essential (primary) hypertension; J44.9 Chronic obstructive pulmonary disease, unspecified
CPT/HCPCS: 93005; 94640; 99284; 96361; 96374; 36415; 82553; 80307 ×2; 82550; 83690; 83735; 84100; 85025; 80053; 81001; 84484; 71046; 70450; 74177; 93010; J2405; J7120; J7620

== ENCOUNTER 2019-05-13 22:08 | Emergency (ER) | payer OTHER ==
[2019-05-13 22:48] VITALS: BP 108/59
== END 2019-05-14 00:35 | disposition left against medical advice (07) ==
LOC: ER 22:08
DX: Z53.21 Procedure and treatment not carried out due to patient leaving prior to being seen by health care provider (principal); R10.9 Unspecified abdominal pain

== ENCOUNTER 2019-05-19 10:01 | Observation (INO) | payer OTHER ==
[2019-05-19] MEDS ORDERED: METOCLOPRAMIDE HCL ORAL SOLN 10 MG/10 ML UDCUP PO ONE (10:31)
[2019-05-19] MEDS ORDERED: MAG HYDROX/AL HYDROX/SIMETH SUSP 30 ML UDCUP PO ONE (10:31)
[2019-05-19] MEDS ORDERED: LIDOCAINE 2% VISCOUS SOLN 20 ML UDCUP PO ONE (10:31)
[2019-05-19] MEDS ORDERED: ONDANSETRON HCL INJ/PF 4 MG/2 ML SDV IV ONE (10:32)
[2019-05-19] MEDS ORDERED: NORMAL SALINE 1000 ML 1,000 ML IV ONE ×2 (10:32→12:57)
--- NOTE | 2019-05-19 10:36 | ER Document Report ---
ED GI/ - General Chief Complaint: Abdominal Pain Stated Complaint: STOMACH PAIN Time Seen by Provider: 05/19/19 10:27 Notes: 53-year-old male with a history of adrenalectomy presents to the ER with abdominal pain since Saturday. Patient complains of nausea but no vomiting denies diarrhea constipation complains of diffuse abdominal pain. Denies any black bloody or tarry stools denies hematemesis. Feels like aching burning pain that radiates to his back. He has not had this before he rates it as severe nothing really makes it better or worse. Denies any chest pain or shortness of breath. TRAVEL OUTSIDE OF THE [place] IN LAST 30 DAYS: No - Related Data Allergies/Adverse Reactions: No Known Allergies Allergy (Verified 05/19/19 11:37) Past Medical History - Social History Smoking Status: Current Every Day Smoker Frequency of alcohol use: None Drug Abuse: None Family History: Reviewed & Not Pertinent, Other Patient has suicidal ideation: No Patient has homicidal ideation: No - Past Medical History Cardiac Medical History: Reports: Hx Hypertension Pulmonary Medical History: Reports: Hx Asthma, Hx COPD Renal/ Medical History: Denies: Hx Peritoneal Dialysis Musculoskeletal Medical History: Reports Hx Musculoskeletal Trauma Psychiatric Medical History: Reports: Hx Bipolar Disorder, Hx Depression Past Surgical History: Reports: Hx Orthopedic Surgery - plate/screws in toe - Immunizations Hx Diphtheria, Pertussis, Tetanus Vaccination: Yes Review of Systems - Review of Systems Constitutional: denies: Chills, Fever Cardiovascular: denies: Chest pain Respiratory: denies: Cough, Short of breath Gastrointestinal: Abdominal pain, Nausea. denies: Diarrhea, Vomiting Musculoskeletal: Back pain Neurological/Psychological: No symptoms reported -: Yes All other systems reviewed and negative Physical Exam - Vital signs Vitals: Temp Pulse Resp BP Pulse Ox 99.9 F 130 H 16 104/53 L 100 05/19/19 10:05 05/19/19 10:05 05/19/19 10:05 05/19/19 10:05 05/19/19 10:05 - Notes Notes: GENERAL_APPEARANCE: well_nourished, alert, cooperative VITALS: reviewed, see vital signs table. HEAD: no_swelling\tenderness on the head. EYES: PERRL, EOMI, conjunctiva_clear. NOSE: no_nasal_discharge. MOUTH: (-)decreased moisture. THROAT: no_tonsilar_inflammation, no_airway_obstruction. no_lymphadenopathy NECK: supple, no_neck_tenderness, (-)thyromegaly. BACK: no_back_tenderness. CHEST_WALL: no_chest_tenderness. LUNGS: no_wheezing, no_rales, no_rhonchi, (-)accessory muscle use, good air exchange bilateral. HEART: normal_rate, normal_rhythm, normal_S1, normal_S2, (-)S3, (-)S4, no_murmur, no_rub. ABDOMEN: normal_BS, soft, just above umbilicus_abd_tenderness, (-)guarding, (- )rebound, no_organomegaly, no_abd_masses. EXTREMITIES: good pulses in all_extremities, no_swelling\tenderness in the extremities, no_edema. SKIN: warm, dry, good_color, no_rash. MENTAL_STATUS: speech_clear, oriented_X_3, normal_affect, responds_ap propriately to questions. Course - Re-evaluation Re-evalutation: 05/19/19 10:35 53-year-old male history of adrenalectomy presents with nausea and abdominal pain. His abdomen is soft and supple on exam there is no rebound or guarding his pain is just above his umbilicus. There is no masses can be felt no hernia or abdominal wall defects. We will get a scan to further differentiate. Blood work. We will get a screening EKG and troponin more for anginal equivalent though I think this is less likely. 05/19/19 14:24 Looking back on the patient's prior visits he is here frequently for chronic abdominal pain and electrolyte abnormalities. Because of the patient's adrenalectomy his sodium is low potassium is mildly elevated. The patient was given stress dose steroids here. He has a fever and I am unsure what the exact etiology of this fever. I swabbed him for the flu white count is marginally elevated chest x-ray shows no pneumonia urine is clean. This is the only thing that is unexpected. His CT scan of his abdomen shows adenopathy but again this is unchanged compared to old CTs. Patient's heart rate is come down to around 108 after 2 L of IV fluids. We will give him Tylenol. I gave him an empiric dose of Rocephin I do not have a focus to treat but I was waiting for cultures to come back. Normally we would correct his electrolytes and hydrate him and send him home however the fever is something different. I think he deserves observation to need IV fluids and see if anything declares itself or infection. One other consideration is the patient has a history of alcohol dependence and he may be in a component of withdrawal also. However this does not necessarily explain his fever. 05/19/19 14:27 - Vital Signs Vital signs: Temp Pulse Resp BP Pulse Ox 101.4 F H 115 H 16 117/59 L 97 05/19/19 13:42 05/19/19 11:22 05/19/19 10:05 05/19/19 13:00 05/19/19 13:01 - Laboratory Result Diagrams: 05/19/19 10:40 05/19/19 10:40 Laboratory results interpreted by me: 05/19/19 05/19/19 05/19/19 10:40 10:40 10:40 WBC 10.8 H Eos % (Auto) 8.6 H Absolute Eos (auto) 0.9 H Sodium 125.2 L Chloride 90 L BUN 25 H Creatinine 1.68 H Est GFR ( Amer) 52 L Est GFR (MDRD) Non-Af 43 L Calcium 11.0 H Total Bilirubin 2.0 H Alkaline Phosphatase 157 H Urine Protein 100 H Urine Ketones TRACE H Urine Urobilinogen 2.0 H Discharge - Discharge Clinical Impression: Adrenal insufficiency, Dehydration, Fever of unknown origin Alcohol dependence Qualifiers: Substance use status: uncomplicated Qualified Code(s): F10.20 - Alcohol dependence, uncomplicated Condition: Good Disposition: ADMITTED OBSERVATION Admitting Provider: Belem (Hospitalist)
[2019-05-19 11:04] LABS: ABSOLUTE BASOPHILS # (AUTO) 0.1 10^3/uL (0.0-0.2); ABSOLUTE EOSINOPHILS # (AUTO) 0.9 10^3/uL (0.0-0.6); ABSOLUTE LYMPHOCYTES (AUTO) 2.1 10^3/uL (0.5-4.7); ABSOLUTE MONOCYTES (AUTO) 0.8 10^3/uL (0.1-1.4); ABSOLUTE NEUT (AUTO) 6.9 10^3/uL (1.7-8.2); BASOPHILS % (AUTO) 1.2 % (0-2); EOSINOPHILS % (AUTO) 8.6 % (0-6); HEMATOCRIT 38.8 % (37.9-51.0); HEMOGLOBIN 13.5 g/dL (13.5-17.0); LYMPHOCYTES % (AUTO) 19.3 % (13-45); MEAN CORPUSCULAR HEMOGLOBIN 28.8 pg (27.0-33.4); MEAN CORPUSCULAR HGB CONC 34.8 g/dL (32.0-36.0); MEAN CORPUSCULAR VOLUME 83 fl (80-97); MONOCYTES % (AUTO) 7.4 % (3-13); PLATELET COUNT 162 10^3/uL (150-450); RED CELL DISTRIBUTION WIDTH 13.7 % (11.5-14.0); SEGMENTED NEUTROPHILS % (AUTO) 63.5 % (42-78); TOTAL CELLS COUNTED % (AUTO) 100 %; WHITE BLOOD COUNT 10.8 10^3/uL (4.0-10.5)
[2019-05-19 11:13] LABS: APPEARANCE,URINE SLIGHTLY-CLOUDY; BILIRUBIN,URINE NEGATIVE (NEGATIVE); GLUCOSE, URINE NEGATIVE (NEGATIVE); KETONES,URINE TRACE mg/dL (NEGATIVE); LEUKOCYTE ESTERASE,URINE NEGATIVE (NEGATIVE); NITRITE,URINE NEGATIVE (NEGATIVE); PROTEIN,URINE 100 mg/dL (NEGATIVE); URINE SPECIFIC GRAVITY 1.021
[2019-05-19 11:15] LABS: COLOR,URINE YELLOW
[2019-05-19 11:30] LABS: ALBUMIN 3.7 g/dL (3.5-5.0); ALKALINE PHOSPHATASE 157 U/L (38-126); ANION GAP 11 (5-19); ASPARTATE AMINO TRANSFERASE 32 U/L (17-59); BILIRUBIN,DIRECT 0.4 mg/dL (0.0-0.4); BLOOD UREA NITROGEN 25 mg/dL (7-20); CARBON DIOXIDE 24 mmol/L (22-30); CHLORIDE 90 mmol/L (98-107); GLUCOSE 98 mg/dL (75-110); POTASSIUM 4.8 mmol/L (3.6-5.0); TOTAL PROTEIN 7.3 g/dL (6.3-8.2)
--- NOTE | 2019-05-19 12:24 | RADIOLOGY REPORT (SQ) ---
EXAM DESCRIPTION: CT ABD/PELVIS WITH IV ONLY COMPLETED DATE/TIME: 05/19/2019 12:07 pm REASON FOR STUDY: abd pain COMPARISON: 03/28/2019 TECHNIQUE: CT scan of the abdomen and pelvis performed using helical scanning technique with dynamic intravenous contrast injection. No oral contrast. Images reviewed with lung, soft tissue, and bone w indows. Reconstructed coronal and sagittal MPR images reviewed. Delayed images for evaluation of the urinary system also acquired. All images stored on PACS. All CT scanners at this facility use dose modulation, iterative reconstruction, and/or weight based d osing when appropriate to reduce radiation dose to as low as reasonably achievable (ALARA). [facility]: Dose Right [facility]: CareDose [facility]: Dose Right [facility]: Teradose 4D [facility]: Humanoid CONTRAST TYPE AND DOSE: contrast/concentration: Isovue 300.00 mg/ml; Total Contrast Delivered: 58.0 ml; Total Saline Delivered: 65.0 ml RENAL FUNCTION: BUN 25 creatinine 1.68 RADIATION DOSE: CT Rad equipment meets quality standard of care and radiation dose reduction techniq ues were employed. CTDIvol: NaN - NaN mGy. DLP: 0 mGy-cm.. LIMITATIONS: None. FINDINGS: LOWER CHEST: No significant findings. LIVER: Normal size. No enhancing masses. No dilated ducts. SPLEEN: Similar splenomegaly. No focal lesions. PANCREAS: No masses identified. No significant calcifications. No adjacent inflammation or peripancre atic fluid collections. Pancreatic duct not dilated. GALLBLADDER: No calcified stones. No inflammatory changes to suggest cholecystitis. ADRENAL GLANDS: No significant masses. Left adrenal gland has been surgically removed. RIGHT KIDNEY AND URETER: No cysts identified. No solid masses identified. No calcified stones. No hyd ronephrosis or hydroureter. LEFT KIDNEY AND URETER: No cysts identified. No solid masses identified. No calcified stones. No hydr onephrosis or hydroureter. AORTA AND VESSELS: No aneurysm. No dissection. Renal arteries, SMA, celiac without significant stenos is. RETROPERITONEUM: Diffuse slightly increased retroperitoneal adenopathy. BOWEL AND PERITONEAL CAVITY: No obstruction or inflammatory changes. No free fluid. APPENDIX: Normal. PELVIS: Enlarged left external iliac nodes, largest measuring 4 cm with mild adjacent inflammatory ch anges in the pelvic fat. No free fluid. Unremarkable bladder. ABDOMINAL WALL: No masses. No hernias. BONES: No acute findings. OTHER: No other significant finding. IMPRESSION: Enlarged left external iliac nodes, largest measuring 4 cm with mild adjacent inflammato ry changes in the pelvic fat. Mildly increased adenopathy throughout the pelvis and retroperitoneum. Similar splenomegaly. TECHNICAL DOCUMENTATION: JOB ID: [id number] Quality ID # [id number]: Final reports with documentation of one or more dose reduction techniques (e.g., Au tomated exposure control, adjustment of the mA and/or kV according to patient size, use of iterative reconstruction technique) 2010 [employer]- All Rights Reserved Reading location - IP/workstation name: [employer]
[2019-05-19] MEDS ORDERED: ACETAMINOPHEN 325 MG TABLET PO ONE (12:38)
--- NOTE | 2019-05-19 13:43 | RADIOLOGY REPORT (SQ) ---
EXAM DESCRIPTION: CHEST SINGLE VIEW COMPLETED DATE/TIME: 05/19/2019 1:34 pm REASON FOR STUDY: fever COMPARISON: 03/28/2019 EXAM PARAMETERS: NUMBER OF VIEWS: One view. TECHNIQUE: Single frontal radiographic view of the chest acquired. RADIATION DOSE: NA LIMITATIONS: None. FINDINGS: LUNGS AND PLEURA: No opacities, masses or pneumothorax. No pleural effusion. MEDIASTINUM AND HILAR STRUCTURES: No masses. Contour normal. HEART AND VASCULAR STRUCTURES: Heart normal in size. Normal vasculature. BONES: No acute findings. HARDWARE: None in the chest. OTHER: No other significant finding. IMPRESSION: NO ACUTE RADIOGRAPHIC FINDING IN THE CHEST. TECHNICAL DOCUMENTATION: JOB ID: [id number] [employer]- All Rights Reserved Reading location - IP/workstation name: [email or web address]
[2019-05-19 13:59] LABS: A TYPE INFLUENZA AG NEGATIVE (NEGATIVE); B INFLUENZA AG NEGATIVE (NEGATIVE)
[2019-05-19] MEDS ORDERED: HYDROCORTISONE SOD SUCCINATE INJ/PF 250 MG/2 ML SDV IV ONE (14:04)
[2019-05-19] MEDS ORDERED: CEFTRIAXONE 1 GM/D5W RTU 1 GM/50 ML RTUPB IV ONE (14:30)
[2019-05-19] MEDS ORDERED: NORMAL SALINE 1000 ML 1,000 ML IV PRN (15:32)
[2019-05-19] MEDS ORDERED: PROMETHAZINE HCL 25 MG TABLET PO PRN (17:00)
[2019-05-19] MEDS ORDERED: MAG HYDROX/AL HYDROX/SIMETH SUSP 30 ML UDCUP PO PRN (17:00)
[2019-05-19] MEDS ORDERED: MAGNESIUM HYDROXIDE SUSP 30 ML UDCUP PO PRN (17:00)
--- NOTE | 2019-05-19 17:00 | PDOC H&P ---
History of Present Illness Admission Date/PCP: 05/19/19 15:13 FABIANA LERMA MD Patient complains of: Lightheaded, fever, weak with palpitations History of Present Illness: MELITA SETH is a 53 year old male with a history of an adrenal mass status post adrenalectomy. He states he has been feeling poorly with abdominal pain and decreased appetite. He presented with a temperature of 102 F. He was also noted to have decreased sodium and clinical signs of dehydration. He was given stress dose of IV hydrocortisone and referred to the hospital service for admission. Past Medical History Cardiac Medical History: Reports: Hypertension Pulmonary Medical History: Reports: Asthma, Chronic Obstructive Pulmonary Disease (COPD) EENT Medical History: Denies: Ears, Nose, Throat Neurological Medical History: Denies: Hemorrhagic CVA, Ischemic CVA, Seizures Endocrine Medical History: Denies: Diabetes Mellitus Type 2, Hyperthyroidism Renal/ Medical History: Denies: Chronic Kidney Disease, End Stage Renal Disease Malignancy Medical History: Reports: None GI Medical History: Denies: Cirrhosis, Gastroesophageal Reflux Disease, Hiatal Hernia Musculoskeltal Medical History: Denies: Arthritis, Fibromyalgia, Gout Skin Medical History: Reports: Other - Scabies Psychiatric Medical History: Reports: Bipolar Disorder, Depression Traumatic Medical History: Reports: None Hematology: Denies: Bleeding Tendencies, Heparin Induced Thrombocytopenia Infectious Medical History: Reports: None Past Surgical History Past Surgical History: Reports: Orthopedic Surgery - plate/screws in toe, Other - Left adrenalectomy Social History Information Source: Patient Lives with: Spouse/Significant other Smoking Status: Current Every Day Smoker Frequency of Alcohol Use: Heavy Hx Recreational Drug Use: No Drugs: None Hx Prescription Drug Abuse: No Past Social History Note: The patient is an unreliable historian as he told this provider that he did not smoke and only took alcohol occasionally. - Advance Directive Resuscitation Status: Full Code Surrogate healthcare decision maker:: The patient's would be the designated decision maker Family History Family History: Reviewed & Not Pertinent, Other Parental Family History Reviewed: Yes Children Family History Reviewed: NA Sibling(s) Family History Reviewed.: Yes Medication/Allergy Home Medications: Albuterol Sulfate [Albuterol Sulfate Hfa] 2 puff IH Q4HP PRN 05/19/19 Hydroxyzine HCl [Atarax 10 mg Tablet] 10 mg PO Q8HP PRN 05/19/19 Allergies/Adverse Reactions: No Known Allergies Allergy (Verified 05/19/19 11:37) Review of Systems Constitutional: PRESENT: as per HPI, anorexia, fever(s) Eyes: ABSENT: visual disturbances Ears: ABSENT: hearing changes Nose, Mouth, and Throat: ABSENT: headache(s), mouth pain, sore throat Cardiovascular: ABSENT: chest pain, edema, palpitations Respiratory: ABSENT: cough, hemoptysis, sputum Gastrointestinal: PRESENT: abdominal pain, nausea. ABSENT: constipation, diarrhea, heartburn, vomiting Genitourinary: PRESENT: nocturia. ABSENT: dysuria, hematuria Musculoskeletal: ABSENT: deformity, joint swelling Integumentary: PRESENT: pruritus, other - Scabies. ABSENT: diaphoresis Neurological: ABSENT: abnormal speech, syncope, tremor(s), vertigo Psychiatric: PRESENT: depression. ABSENT: anxiety Endocrine: ABSENT: cold intolerance, heat intolerance, polydipsia, polyuria Hematologic/Lymphatic: PRESENT: lymphadenopathy. ABSENT: easy bleeding, easy bruising Physical Exam Vital Signs: Temp Pulse Resp BP Pulse Ox 98.3 F 115 H 16 105/70 100 05/19/19 14:55 05/19/19 11:22 05/19/19 10:05 05/19/19 16:00 05/19/19 16:01 Intake & Output 05/18/19 05/19/19 05/20/19 06:59 06:59 06:59 Intake Total 2049 Balance 2049 Weight 51.2 kg General appearance: PRESENT: cooperative, mild distress, well-developed Head exam: PRESENT: atraumatic, normocephalic Eye exam: PRESENT: conjunctiva pink, EOMI. ABSENT: scleral icterus Ear exam: PRESENT: normal external ear exam. ABSENT: bleeding, drainage Mouth exam: PRESENT: dry mucosa, tongue midline Neck exam: PRESENT: full ROM, lymphadenopathy - Submandibular glands as well as axillary. ABSENT: thyromegaly Respiratory exam: PRESENT: clear to auscultation ramila, symmetrical. ABSENT: rale s, rhonchi, tachypnea, wheezes Cardiovascular exam: PRESENT: RRR, +S1, +S2, tachycardia GI/Abdominal exam: PRESENT: distended - Slightly distended, soft, tenderness - Slight tenderness across the upper abdomen. ABSENT: guarding Rectal exam: PRESENT: deferred Gentrourinary exam: ABSENT: indwelling catheter Extremities exam: PRESENT: full ROM. ABSENT: joint swelling, pedal edema Musculoskeletal exam: PRESENT: ambulatory, normal inspection Neurological exam: PRESENT: alert, awake, oriented to person, oriented to place, oriented to time, oriented to situation, CN II-XII grossly intact Psychiatric exam: PRESENT: flat affect. ABSENT: agitated, anxious Focused psych exam: ABSENT: delusional, restlessness Skin exam: PRESENT: other - Multiple excoriations and diffuse papular rash Results Laboratory Results: 05/19/19 10:40 05/19/19 10:40 05/19/19 05/19/19 05/19/19 10:40 10:40 10:40 WBC 10.8 H RBC 4.70 Hgb 13.5 Hct 38.8 MCV 83 MCH 28.8 MCHC 34.8 RDW 13.7 Plt Count 162 Seg Neutrophils % 63.5 Sodium 125.2 L Potassium 4.8 Chloride 90 L Carbon Dioxide 24 Anion Gap 11 BUN 25 H Creatinine 1.68 H Est GFR ( Amer) 52 L Glucose 98 Lactic Acid Calcium 11.0 H Total Bilirubin 2.0 H AST 32 Alkaline Phosphatase 157 H Total Protein 7.3 Albumin 3.7 Lipase 28.6 Urine Color YELLOW Urine Appearance SLIGHTLY-CLOUDY Urine pH 5.0 Ur Specific [place] 1.021 Urine Protein 100 H Urine Glucose (UA) NEGATIVE Urine Ketones TRACE H Urine Blood NEGATIVE Urine Nitrite NEGATIVE Ur Leukocyte Esterase NEGATIVE Urine WBC (Auto) 5 Urine RBC (Auto) 2 05/19/19 13:08 WBC RBC Hgb Hct MCV MCH MCHC RDW Plt Count Seg Neutrophils % Sodium Potassium Chloride Carbon Dioxide Anion Gap BUN Creatinine Est GFR ( Amer) Glucose Lactic Acid 0.8 Calcium Total Bilirubin AST Alkaline Phosphatase Total Protein Albumin Lipase Urine Color Urine Appearance Urine pH Ur Specific [place] Urine Protein Urine Glucose (UA) Urine Ketones Urine Blood Urine Nitrite Ur Leukocyte Esterase Urine WBC (Auto) Urine RBC (Auto) 05/19/19 10:40 Troponin I < 0.012 Impressions: Abdomen/Pelvis CT 05/19/19 10:30 IMPRESSION: Enlarged left external iliac nodes, largest measuring 4 cm with mild adjacent inflammatory changes in the pelvic fat. Mildly increased adenopathy throughout the pelvis and retroperitoneum. Similar splenomegaly. Chest X-Ray 05/19/19 12:58 IMPRESSION: NO ACUTE RADIOGRAPHIC FINDING IN THE CHEST. Assessment and Plan - Diagnosis (1) Sepsis Qualifiers: Sepsis acute organ dysfunction status: with acute organ dysfunction Severe sepsis acute organ dysfunction type: acute renal failure Severe sepsis shock status: without septic shock Is this a current diagnosis for this admission?: Yes Plan: 05/19/2019-the patient meets sepsis criteria with his elevated bilirubin and elevated serum creatinine. He was also tachycardic but not significantly hypotensive. He has been placed on ceftriaxone as a precaution while cultures are pending. He was given several liters of fluid and will remain on IV fluids through the night. His lactic acid was normal. (2) Dehydration Is this a current diagnosis for this admission?: Yes Plan: 05/19/2019-the patient reports that with abdominal pain he has lost his appetite. He has not been taking in much in the way of fluids. There are hyaline casts on his urinalysis and his serum creatinine is elevated. The plan will be for intravenous fluids and monitor closely on telemetry. Reassess blood work tomorrow. (3) Hyponatremia Is this a current diagnosis for this admission?: Yes Plan: 05/19/2019-unsure of the exact etiology. The patient will be getting multiple liters of normal saline. We will recheck electrolytes tomorrow. It certainly can be related to the adrenal insufficiency. The patient also has diffuse lymphadenopathy without a diagnosis of malignancy at this time. (4) Adrenal insufficiency Is this a current diagnosis for this admission?: Yes Plan: 05/19/2019-the patient reports that he is not on chronic steroid therapy despite the adrenalectomy. He was given 250 mg by intravenous of hydrocortisone. I have ordered 50 mg every 8 hours ongoing. (5) Scabies Is this a current diagnosis for this admission?: Yes Plan: 05/19/2019-the patient reports that he was diagnosed with scabies. Review of medication reconciliation shows that he was prescribed permethrin recently. He will be on contact precautions and will administer another course of permethrin treatment. Atarax for pruritus. - Time Time Spent with patient: 35 or more minutes Medications reviewed and adjusted accordingly: Yes Anticipated discharge: Home Within: within 48 hours
--- NOTE | 2019-05-19 17:00 | ADVANCED CARE ---
Attendance: Discussion was held at the bedside with the patient Resuscitation Status: Full Code Discussion: We reviewed the living well/healthcare proxy document in his admissions packet. We discussed potential entries such as his wishes moving forward regarding chcf placement, tracheostomy and PEG tube placement as examples. He stated that he would not want to spend an extended amount of time in a chcf. His would be the decision maker at this time. Not only did I encouraged him to fill out the form but also to have these discussions with his . Care Planning Goals: To develop a decision tree in the event of catastrophic illness Document(s) Completed: None Time Spent: 18 minutes
[2019-05-19] MEDS: ACETAMINOPHEN 325 MG TABLET PO PRN (17:30)
[2019-05-19] MEDS: NORMAL SALINE 1000 ML 1,000 ML IV PRN (17:30)
[2019-05-19] MEDS ORDERED: LORAZEPAM INJ 2 MG/1 ML VIAL IV PRN (17:38)
[2019-05-19] MEDS ORDERED: HYDROXYZINE HCL 10 MG TABLET PO PRN (19:56)
[2019-05-19] MEDS ORDERED: ALBUTEROL SULFATE HFA (90 MCG/PUFF) 200 PUFF/8.5 GM MDI IH PRN (19:56)
[2019-05-19] MEDS ORDERED: PERMETHRIN 5% CREAM 60 GM TP ONE (20:30)
--- NOTE | 2019-05-19 21:38 | EKG REPORT ---
SEVERITY:- OTHERWISE NORMAL ECG - SINUS TACHYCARDIA LOW VOLTAGE IN FRONTAL LEADS : Confirmed by: Fatuma Kimble 19-May-2019 21:37:10
[2019-05-19] MEDS: HYDROCORTISONE SOD SUCCINATE INJ/PF 100 MG/2 ML SDV IV SCH (22:28)
[2019-05-19] MEDS: HEPARIN SOD (PORCINE) 5,000 UNIT/ML 1 ML VIAL SUBCUT SCH (22:29)
[2019-05-20 06:02] LABS: ABSOLUTE LYMPHOCYTES (AUTO) 0.4 10^3/uL (0.5-4.7); ABSOLUTE MONOCYTES (AUTO) 0.2 10^3/uL (0.1-1.4); ABSOLUTE NEUT (AUTO) 4.2 10^3/uL (1.7-8.2); BASOPHILS % (AUTO) 0.4 % (0-2); EOSINOPHILS % (AUTO) 0.5 % (0-6); HEMATOCRIT 30.8 % (37.9-51.0); LYMPHOCYTES % (AUTO) 7.9 % (13-45); MEAN CORPUSCULAR HEMOGLOBIN 28.4 pg (27.0-33.4); MEAN CORPUSCULAR HGB CONC 34.2 g/dL (32.0-36.0); MEAN CORPUSCULAR VOLUME 83 fl (80-97); MONOCYTES % (AUTO) 4.1 % (3-13); PLATELET COUNT 131 10^3/uL (150-450); RED BLOOD COUNT 3.71 10^6/uL (4.35-5.55); RED CELL DISTRIBUTION WIDTH 13.9 % (11.5-14.0); SEGMENTED NEUTROPHILS % (AUTO) 87.1 % (42-78); TOTAL CELLS COUNTED % (AUTO) 100 %; WHITE BLOOD COUNT 4.8 10^3/uL (4.0-10.5)
[2019-05-20 06:10] LABS: ALBUMIN 2.9 g/dL (3.5-5.0); ALKALINE PHOSPHATASE 104 U/L (38-126); ANION GAP 12 (5-19); ASPARTATE AMINO TRANSFERASE 22 U/L (17-59); BILIRUBIN,DIRECT 0.2 mg/dL (0.0-0.4); BILIRUBIN,TOTAL 0.5 mg/dL (0.2-1.3); BLOOD UREA NITROGEN 21 mg/dL (7-20); CALCIUM 9.4 mg/dL (8.4-10.2); CARBON DIOXIDE 20 mmol/L (22-30); CHLORIDE 107 mmol/L (98-107); GLUCOSE 135 mg/dL (75-110); HEMOGLOBIN 10.5 g/dL (13.5-17.0); POTASSIUM 4.3 mmol/L (3.6-5.0); TOTAL PROTEIN 6.1 g/dL (6.3-8.2)
[2019-05-20] MEDS: HEPARIN SOD (PORCINE) 5,000 UNIT/ML 1 ML VIAL SUBCUT SCH ×3 (06:14→22:25)
[2019-05-20] MEDS: ACETAMINOPHEN 325 MG TABLET PO PRN (07:35)
[2019-05-20] MEDS: PANTOPRAZOLE SODIUM 20 MG TABLET.DR PO SCH (07:35)
[2019-05-20] MEDS: HYDROCORTISONE SOD SUCCINATE INJ/PF 100 MG/2 ML SDV IV SCH ×3 (07:36→22:31)
[2019-05-20] MEDS: NORMAL SALINE 1000 ML 1,000 ML IV PRN ×2 (07:39→14:10)
[2019-05-20] MEDS ORDERED: PERMETHRIN 5% CREAM 60 GM TP SCH (10:00)
--- NOTE | 2019-05-20 10:35 | PDOC PROGRESS REPORT ---
Subjective Progress Note for:: 05/20/19 Subjective:: The patient is resting in bed. He appears comfortable. His blood pressure has been running on the low side per his reporting. He is still having some abdominal discomfort. Etiology is unclear. Reason For Visit: ALCOHOL DEPENDENCE, ADRENAL SUFFICENCY,DEHYDRATION Physical Exam Vital Signs: Temp Pulse Resp BP Pulse Ox 97.8 F 98 16 97/49 L 100 05/20/19 08:00 05/20/19 08:00 05/20/19 08:00 05/20/19 08:00 05/20/19 08:00 Intake & Output 05/19/19 05/20/19 05/21/19 06:59 06:59 06:59 Intake Total 4080 Balance 4080 Weight 51.2 kg General appearance: PRESENT: no acute distress, cooperative, well-developed Head exam: PRESENT: atraumatic, normocephalic Eye exam: PRESENT: conjunctiva pink. ABSENT: scleral icterus Ear exam: PRESENT: normal external ear exam. ABSENT: bleeding, drainage Mouth exam: PRESENT: moist, tongue midline Respiratory exam: PRESENT: clear to auscultation ramila, symmetrical, unlabored. ABSENT: accessory muscle use, rales, rhonchi, tachypnea, wheezes Cardiovascular exam: PRESENT: +S1, +S2, tachycardia GI/Abdominal exam: PRESENT: soft, tenderness - Still across the upper abdomen. ABSENT: distended Extremities exam: ABSENT: joint swelling, pedal edema Musculoskeletal exam: PRESENT: ambulatory, normal inspection Neurological exam: PRESENT: alert, awake, oriented to person, oriented to place, oriented to time, oriented to situation, CN II-XII grossly intact Psychiatric exam: PRESENT: appropriate affect. ABSENT: agitated, anxious Focused psych exam: ABSENT: delusional, restlessness Skin exam: PRESENT: dry, normal color, rash - scabies rash, warm Results Laboratory Results: 05/20/19 05:45 05/20/19 05:45 05/19/19 05/19/19 05/19/19 10:40 10:40 10:40 WBC 10.8 H RBC 4.70 Hgb 13.5 Hct 38.8 MCV 83 MCH 28.8 MCHC 34.8 RDW 13.7 Plt Count 162 Seg Neutrophils % 63.5 Sodium 125.2 L Potassium 4.8 Chloride 90 L Carbon Dioxide 24 Anion Gap 11 BUN 25 H Creatinine 1.68 H Est GFR ( Amer) 52 L Glucose 98 Lactic Acid Calcium 11.0 H Magnesium Total Bilirubin 2.0 H GGT AST 32 Alkaline Phosphatase 157 H Total Protein 7.3 Albumin 3.7 Lipase 28.6 Urine Color YELLOW Urine Appearance SLIGHTLY-CLOUDY Urine pH 5.0 Ur Specific [place] 1.021 Urine Protein 100 H Urine Glucose (UA) NEGATIVE Urine Ketones TRACE H Urine Blood NEGATIVE Urine Nitrite NEGATIVE Ur Leukocyte Esterase NEGATIVE Urine WBC (Auto) 5 Urine RBC (Auto) 2 05/19/19 05/19/19 05/20/19 13:08 18:51 05:45 WBC 4.8 RBC 3.71 L Hgb 10.5 L D Hct 30.8 L MCV 83 MCH 28.4 MCHC 34.2 RDW 13.9 Plt Count 131 L Seg Neutrophils % 87.1 H Sodium Potassium Chloride Carbon Dioxide Anion Gap BUN Creatinine Est GFR ( Amer) Glucose Lactic Acid 0.8 Calcium Magnesium Total Bilirubin GGT 26 AST Alkaline Phosphatase Total Protein Albumin Lipase Urine Color Urine Appearance Urine pH Ur Specific [place] Urine Protein Urine Glucose (UA) Urine Ketones Urine Blood Urine Nitrite Ur Leukocyte Esterase Urine WBC (Auto) Urine RBC (Auto) 05/20/19 05:45 WBC RBC Hgb Hct MCV MCH MCHC RDW Plt Count Seg Neutrophils % Sodium 138.8 Potassium 4.3 Chloride 107 Carbon Dioxide 20 L Anion Gap 12 BUN 21 H Creatinine 1.09 Est GFR ( Amer) > 60 Glucose 135 H Lactic Acid Calcium 9.4 Magnesium 1.8 Total Bilirubin 0.5 GGT AST 22 Alkaline Phosphatase 104 Total Protein 6.1 L Albumin 2.9 L Lipase Urine Color Urine Appearance Urine pH Ur Specific [place] Urine Protein Urine Glucose (UA) Urine Ketones Urine Blood Urine Nitrite Ur Leukocyte Esterase Urine WBC (Auto) Urine RBC (Auto) 05/19/19 10:40 Troponin I < 0.012 Impressions: Abdomen/Pelvis CT 05/19/19 10:30 IMPRESSION: Enlarged left external iliac nodes, largest measuring 4 cm with mild adjacent inflammatory changes in the pelvic fat. Mildly increased adenopathy throughout the pelvis and retroperitoneum. Similar splenomegaly. Chest X-Ray 05/19/19 12:58 IMPRESSION: NO ACUTE RADIOGRAPHIC FINDING IN THE CHEST. Assessment and Plan - Diagnosis (1) Sepsis Qualifiers: Sepsis acute organ dysfunction status: with acute organ dysfunction Severe sepsis acute organ dysfunction type: acute renal failure Severe sepsis shock status: without septic shock Is this a current diagnosis for this admission?: Yes Plan: 05/19/2019-the patient meets sepsis criteria with his elevated bilirubin and elevated serum creatinine. He was also tachycardic but not significantly hypotensive. He has been placed on ceftriaxone as a precaution while cultures are pending. He was given several liters of fluid and will remain on IV fluids through the night. His lactic acid was normal. 05/20/2019-the patient still has borderline hypotension. He is borderline tachycardic. He still has abdominal discomfort. Blood cultures are no growth at this time. White blood cell count has normalized. Serum creatinine and total bilirubin have also normalized. We will continue IV fluids at this time. No clear source of sepsis has been identified. (2) Hyponatremia Is this a current diagnosis for this admission?: Yes Plan: 05/19/2019-unsure of the exact etiology. The patient will be getting multiple liters of normal saline. We will recheck electrolytes tomorrow. It certainly can be related to the adrenal insufficiency. The patient also has diffuse lymphadenopathy without a diagnosis of malignancy at this time. 05/20/2019-with aggressive IV fluids the patient's serum sodium is now normal. Continue to monitor electrolytes. (3) Dehydration Is this a current diagnosis for this admission?: Yes Plan: 05/19/2019-the patient reports that with abdominal pain he has lost his appetite. He has not been taking in much in the way of fluids. There are hyaline casts on his urinalysis and his serum creatinine is elevated. The plan will be for intravenous fluids and monitor closely on telemetry. Reassess blood work tomorrow. 05/20/2019-continue aggressive fluids. Despite normalized creatinine and bilirubin the patient still has some hypotension and borderline tachycardia. I have increased his hydrocortisone for his adrenal insufficiency. (4) Adrenal insufficiency Is this a current diagnosis for this admission?: Yes Plan: 05/19/2019-the patient reports that he is not on chronic steroid therapy despite the adrenalectomy. He was given 250 mg by intravenous of hydrocortisone. I have ordered 50 mg every 8 hours ongoing. 05/20/2019-because of his low blood pressure I did increase the hydrocortisone to 100 mg IV every 8 hours. (5) Scabies Is this a current diagnosis for this admission?: Yes Plan: 05/19/2019-the patient reports that he was diagnosed with scabies. Review of medication reconciliation shows that he was prescribed permethrin recently. He will be on contact precautions and will administer another course of permethrin treatment. Atarax for pruritus. 05/20/2019-the patient was still itchy. I did not have derma scope for evaluation. He had an application of permethrin 2 weeks ago. I ordered a second application yesterday. It was applied last night and the patient is ready for shower this morning. (6) Lymphadenopathy, generalized Is this a current diagnosis for this admission?: Yes Plan: 05/20/2019-the patient sees Dr. Yoo for his adenopathy. He had an adrenal mass removed several years ago. Per the CT scan there is significant lymphadenopathy and so I have asked Dr. Cha, who is on-call for oncology, to evaluate the patient. - Time Time Spent with patient: 15-24 minutes Medications reviewed and adjusted accordingly: Yes Anticipated discharge: Home
[2019-05-20] MEDS: CEFTRIAXONE 1 GM/D5W RTU 1 GM/50 ML RTUPB IV SCH (11:19)
[2019-05-21 04:16] LABS: ABSOLUTE LYMPHOCYTES (AUTO) 0.6 10^3/uL (0.5-4.7); ABSOLUTE MONOCYTES (AUTO) 0.2 10^3/uL (0.1-1.4); ABSOLUTE NEUT (AUTO) 4.2 10^3/uL (1.7-8.2); BASOPHILS % (AUTO) 0.3 % (0-2); EOSINOPHILS % (AUTO) 0.5 % (0-6); HEMATOCRIT 27.6 % (37.9-51.0); HEMOGLOBIN 9.6 g/dL (13.5-17.0); LYMPHOCYTES % (AUTO) 12.6 % (13-45); MEAN CORPUSCULAR HEMOGLOBIN 28.5 pg (27.0-33.4); MEAN CORPUSCULAR HGB CONC 34.6 g/dL (32.0-36.0); MEAN CORPUSCULAR VOLUME 82 fl (80-97); MONOCYTES % (AUTO) 4.1 % (3-13); PLATELET COUNT 151 10^3/uL (150-450); RED BLOOD COUNT 3.35 10^6/uL (4.35-5.55); RED CELL DISTRIBUTION WIDTH 13.7 % (11.5-14.0); SEGMENTED NEUTROPHILS % (AUTO) 82.5 % (42-78); TOTAL CELLS COUNTED % (AUTO) 100 %; WHITE BLOOD COUNT 5.1 10^3/uL (4.0-10.5)
[2019-05-21 04:33] LABS: ANION GAP 7 (5-19); BLOOD UREA NITROGEN 16 mg/dL (7-20); CARBON DIOXIDE 20 mmol/L (22-30); CHLORIDE 108 mmol/L (98-107); GLUCOSE 131 mg/dL (75-110); POTASSIUM 3.9 mmol/L (3.6-5.0)
[2019-05-21] MEDS: HEPARIN SOD (PORCINE) 5,000 UNIT/ML 1 ML VIAL SUBCUT SCH (06:32)
[2019-05-21] MEDS: HYDROCORTISONE SOD SUCCINATE INJ/PF 100 MG/2 ML SDV IV SCH (06:33)
[2019-05-21] MEDS: PANTOPRAZOLE SODIUM 20 MG TABLET.DR PO SCH (06:34)
[2019-05-21 09:48] VITALS: BP 108/57
[2019-05-21] MEDS: CEFTRIAXONE 1 GM/D5W RTU 1 GM/50 ML RTUPB IV SCH (11:02)
--- NOTE | 2019-05-21 11:07 | PDOC CONSULTATION ---
Consultation Consult Date: 05/21/19 Provider Consulted: MARYURI CACERES Consult reason:: Hematology/Oncology consultation was requested for patient with lymphadenopathy. History of Present Illness Admission Date/PCP: 05/19/19 15:13 FABIANA LERMA MD History of Present Illness: MELITA SETH is a 53 year old male who is followed by Dr. Yoo with a history of malignant adrenal gland tumor. He underwent right adrenalectomy in Aug 2018. This was a stage I with no further treatment recommended. He was not placed on any replacement steroids after this procedure. He is also followed for generalized lymphadenopathy. Biopsy of LN in the past was benign. He states that over the past few months, he has had recurrent episode of low sodium and low BP. During these episodes, he is very tired, unable to continue working, and has dizziness. He has been on steroids for this in the past, but only briefly. He states that he has axillary LNs that come and go. He also has periumbilical abdominal pain which comes and goes. He does not know if these are related to his adrenal gland or not. He is not yet followed by endocrinology. Past Medical History Cardiac Medical History: Reports: Hypertension Pulmonary Medical History: Reports: Asthma, Chronic Obstructive Pulmonary Disease (COPD) EENT Medical History: Denies: Ears, Nose, Throat Neurological Medical History: Denies: Hemorrhagic CVA, Ischemic CVA, Seizures Endocrine Medical History: Denies: Diabetes Mellitus Type 2, Hyperthyroidism Renal/ Medical History: Denies: Chronic Kidney Disease, End Stage Renal Disease Malignancy Medical History: Reports: None GI Medical History: Denies: Cirrhosis, Gastroesophageal Reflux Disease, Hiatal Hernia Musculoskeltal Medical History: Denies: Arthritis, Fibromyalgia, Gout Skin Medical History: Reports: Other - Scabies Psychiatric Medical History: Reports: Bipolar Disorder, Depression Traumatic Medical History: Reports: None Hematology: Denies: Bleeding Tendencies, Heparin Induced Thrombocytopenia Infectious Medical History: Reports: None Past Surgical History Past Surgical History: Reports: Orthopedic Surgery - plate/screws in toe, Other - Left adrenalectomy Social History Lives with: Spouse/Significant other Smoking Status: Current Every Day Smoker Frequency of Alcohol Use: Heavy Hx Recreational Drug Use: No Drugs: None Hx Prescription Drug Abuse: No - Advance Directive Resuscitation Status: Full Code Family History Family History: Reviewed & Not Pertinent, Other Parental Family History Reviewed: Yes - Father with lung cancer Children Family History Reviewed: No Sibling(s) Family History Reviewed.: Yes - Brother with nasopharengeal cancer Medication/Allergy Home Medications: Albuterol Sulfate [Albuterol Sulfate Hfa] 2 puff IH Q4HP PRN 05/19/19 Hydroxyzine HCl [Atarax 10 mg Tablet] 10 mg PO Q8HP PRN 05/19/19 Allergies/Adverse Reactions: No Known Allergies Allergy (Verified 05/19/19 11:37) Review of Systems Constitutional: ABSENT: fever(s) Eyes: ABSENT: visual disturbances Ears: ABSENT: hearing changes Nose, Mouth, and Throat: ABSENT: sore throat Cardiovascular: ABSENT: chest pain Respiratory: ABSENT: dyspnea Gastrointestinal: PRESENT: abdominal pain Genitourinary: ABSENT: dysuria Integumentary: ABSENT: rash Neurological: PRESENT: dizziness, weakness Endocrine: ABSENT: cold intolerance Hematologic/Lymphatic: PRESENT: lymphadenopathy Physical Exam Vital Signs: Temp Pulse Resp BP Pulse Ox 97.4 F 97 17 108/57 L 100 05/21/19 08:00 05/21/19 08:00 05/21/19 08:00 05/21/19 08:00 05/21/19 08:00 Intake & Output 05/20/19 05/21/19 05/22/19 06:59 06:59 06:59 Intake Total 4080 3858 Output Total 0 Balance 4080 3858 Weight 51.2 kg 49 kg General appearance: PRESENT: no acute distress, well-developed, well-nourished Exam: 53 year old male. Head exam: PRESENT: normocephalic Eye exam: PRESENT: EOMI Mouth exam: PRESENT: tongue midline Neck exam: ABSENT: lymphadenopathy, tenderness Respiratory exam: PRESENT: clear to auscultation ramila, unlabored Cardiovascular exam: PRESENT: RRR GI/Abdominal exam: PRESENT: soft, tenderness - periumbilical Extremities exam: ABSENT: pedal edema Neurological exam: PRESENT: alert, awake, oriented to person, oriented to place, oriented to time, oriented to situation Psychiatric exam: PRESENT: appropriate affect Skin exam: PRESENT: normal color Results Laboratory Results: 05/21/19 03:34 05/21/19 03:34 05/21/19 05/21/19 03:34 03:34 WBC 5.1 RBC 3.35 L Hgb 9.6 L Hct 27.6 L MCV 82 MCH 28.5 MCHC 34.6 RDW 13.7 Plt Count 151 Seg Neutrophils % 82.5 H Sodium 135.3 L Potassium 3.9 Chloride 108 H Carbon Dioxide 20 L Anion Gap 7 BUN 16 Creatinine 0.96 Est GFR ( Amer) > 60 Glucose 131 H Calcium 9.0 Magnesium 1.8 05/19/19 10:40 Troponin I < 0.012 Impressions: Abdomen/Pelvis CT 05/19/19 10:30 IMPRESSION: Enlarged left external iliac nodes, largest measuring 4 cm with mild adjacent inflammatory changes in the pelvic fat. Mildly increased adenopathy throughout the pelvis and retroperitoneum. Similar splenomegaly. Chest X-Ray 05/19/19 12:58 IMPRESSION: NO ACUTE RADIOGRAPHIC FINDING IN THE CHEST. Status: Image reviewed by me Assessment & Plan - Diagnosis (1) Adrenal insufficiency Is this a current diagnosis for this admission?: Yes Plan: s/p right adrenalectomy for malignant tumor. No evidence of cancer at this point. I agree with steroids. I would recommend follow-up with endocrinology if possible, to determine best dose of long-term steroids in this situation. (2) Lymphadenopathy, generalized Is this a current diagnosis for this admission?: Yes Plan: This has been followed by Dr. Yoo. He will continue to follow as outpatient for this. Prior biopsy was benign. (3) Scabies Is this a current diagnosis for this admission?: Yes Plan: He is currently on medication for this. - Plan Summary Plan Summary: Patient was discussed with Dr. Patricia. SARA with discharge and outpatient follow-up. Thank you for this consultation.
--- NOTE | 2019-05-22 17:53 | PDOC DISCHARGE SUMMARY ---
Impression - Admit/DC Date/PCP Admission Date/Primary Care Provider: 05/19/19 15:13 FABIANA LERMA MD Discharge Date: 05/21/19 - Discharge Diagnosis (1) Sepsis Is this a current diagnosis for this admission?: Yes (2) Hyponatremia Is this a current diagnosis for this admission?: Yes (3) Dehydration Is this a current diagnosis for this admission?: Yes (4) Adrenal insufficiency Is this a current diagnosis for this admission?: Yes (5) Scabies Is this a current diagnosis for this admission?: Yes (6) Lymphadenopathy, generalized Is this a current diagnosis for this admission?: Yes (7) Alcohol dependence Is this a current diagnosis for this admission?: Yes (8) DARIUS (acute kidney injury) Is this a current diagnosis for this admission?: Yes - Additional Information Resuscitation Status: Full Code Discharge Diet: As Tolerated Discharge Activity: Activity As Tolerated Referrals: MARYURI CACERES MD [ACTIVE STAFF] - 06/03/19 1:00 pm FABIANA LERMA MD [Primary Care Provider] - 06/02/19 2:00 pm Home Medications: Albuterol Sulfate [Albuterol Sulfate Hfa] 2 puff IH Q4HP PRN 05/19/19 Hydroxyzine HCl [Atarax 10 mg Tablet] 10 mg PO Q8HP PRN 05/19/19 History of Present Illiness History of Present Illness: MELITA SETH is a 53 year old male with a history of an adrenal mass status post adrenalectomy. He states he has been feeling poorly with abdominal pain and decreased appetite. He presented with a temperature of 102 F. He was also noted to have decreased sodium and clinical signs of dehydration. He was given stress dose of IV hydrocortisone and referred to the hospital service for admission. Hospital Course Hospital Course: (1) Sepsis Evidenced by tachycardia, fever, elevated bilirubin, elevated creatinine. Further started on aggressive volume resuscitation and empiric IV antibiotics. Received 2 days of IV antibiotics. Cultures remain negative. Vitals WNL on the day of discharge. (2) Hyponatremia Resolved. Sodium WNL on day of discharge. Likely due to chronic adrenal insufficiency. Admitted to telemetry, electrolytes monitored. (3) Dehydration Normotensive. Euvolemic. Vitals WNL on the day of discharge. (4) Adrenal insufficiency History of adrenalectomy. Followed by Dr. Yoo as outpatient. Received stress dose hydrocortisone on this admission. Vitals WNL. Electrolytes WNL. Outpatient oncology follow-up. (5) Scabies Received permethrin as outpatient. Was given 1 dose as inpatient. Started on contact precautions and histamine for itching. (6) Lymphadenopathy, generalized Sees Dr. Yoo oncologist as outpatient. Significant lymphadenopathy on CT. Oncology was consulted. No recommendation on this admission. Recommended follow-up with PCP and oncology as outpatient. Appointment was obtained (1) DARIUS (acute kidney injury) Most likely due to underlying sepsis. Resolved. Electrolytes WNL. (2) Alcohol dependence Was started on withdrawal precautions. No sign of withdrawal. Physical Exam Vital Signs: Temp Pulse Resp BP Pulse Ox 97.4 F 97 17 108/57 L 100 05/21/19 12:47 05/21/19 12:47 05/21/19 12:47 05/21/19 12:47 05/21/19 12:47 Intake & Output 05/21/19 05/22/19 05/23/19 06:59 06:59 06:59 Intake Total 3858 50 Output Total 0 Balance 3858 50 Weight 49 kg General appearance: PRESENT: no acute distress, well-developed, well-nourished Head exam: PRESENT: atraumatic, normocephalic Eye exam: PRESENT: conjunctiva pink, EOMI, PERRLA. ABSENT: scleral icterus Ear exam: PRESENT: normal external ear exam Mouth exam: PRESENT: moist, tongue midline Neck exam: ABSENT: carotid bruit, JVD, lymphadenopathy, thyromegaly Respiratory exam: PRESENT: clear to auscultation ramila. ABSENT: rales, rhonchi, wheezes Cardiovascular exam: PRESENT: RRR. ABSENT: diastolic murmur, rubs, systolic murmur Pulses: PRESENT: normal dorsalis pedis pul Vascular exam: PRESENT: normal capillary refill GI/Abdominal exam: PRESENT: normal bowel sounds, soft. ABSENT: distended, guarding, mass, organolmegaly, rebound, tenderness Rectal exam: PRESENT: deferred Extremities exam: PRESENT: full ROM. ABSENT: calf tenderness, clubbing, pedal edema Neurological exam: PRESENT: alert, awake, oriented to person, oriented to place, oriented to time, oriented to situation, CN II-XII grossly intact. ABSENT: motor sensory deficit Psychiatric exam: PRESENT: appropriate affect, normal mood. ABSENT: homicidal ideation, suicidal ideation Skin exam: PRESENT: dry, intact, warm. ABSENT: cyanosis, rash Results Laboratory Results: WBC 5.1 10^3/uL (4.0-10.5) 05/21/19 03:34 RBC 3.35 10^6/uL (4.35-5.55) L 05/21/19 03:34 Hgb 9.6 g/dL (13.5-17.0) L 05/21/19 03:34 Hct 27.6 % (37.9-51.0) L 05/21/19 03:34 MCV 82 fl (80-97) 05/21/19 03:34 MCH 28.5 pg (27.0-33.4) 05/21/19 03:34 MCHC 34.6 g/dL (32.0-36.0) 05/21/19 03:34 RDW 13.7 % (11.5-14.0) 05/21/19 03:34 Plt Count 151 10^3/uL (150-450) 05/21/19 03:34 Lymph % (Auto) 12.6 % (13-45) L 05/21/19 03:34 [place] % (Auto) 4.1 % (3-13) 05/21/19 03:34 Eos % (Auto) 0.5 % (0-6) 05/21/19 03:34 Baso % (Auto) 0.3 % (0-2) 05/21/19 03:34 Absolute Neuts (auto) 4.2 10^3/uL (1.7-8.2) 05/21/19 03:34 Absolute Lymphs (auto) 0.6 10^3/uL (0.5-4.7) 05/21/19 03:34 Absolute Monos (auto) 0.2 10^3/uL (0.1-1.4) 05/21/19 03:34 Absolute Eos (auto) 0.0 10^3/uL (0.0-0.6) 05/21/19 03:34 Absolute Basos (auto) 0.0 10^3/uL (0.0-0.2) 05/21/19 03:34 Seg Neutrophils % 82.5 % (42-78) H 05/21/19 03:34 Sodium 135.3 mmol/L (137-145) L 05/21/19 03:34 Potassium 3.9 mmol/L (3.6-5.0) 05/21/19 03:34 Chloride 108 mmol/L (98-107) H 05/21/19 03:34 Carbon Dioxide 20 mmol/L (22-30) L 05/21/19 03:34 Anion Gap 7 (5-19) 05/21/19 03:34 BUN 16 mg/dL (7-20) 05/21/19 03:34 Creatinine 0.96 mg/dL (0.52-1.25) 05/21/19 03:34 Est GFR ( Amer) > 60 (>60) 05/21/19 03:34 Est GFR (MDRD) Non-Af > 60 (>60) 05/21/19 03:34 Glucose 131 mg/dL (75-110) H 05/21/19 03:34 Lactic Acid 0.8 mmol/L (0.7-2.1) 05/19/19 13:08 Calcium 9.0 mg/dL (8.4-10.2) 05/21/19 03:34 Magnesium 1.8 mg/dL (1.6-2.3) 05/21/19 03:34 Total Bilirubin 0.5 mg/dL (0.2-1.3) 05/20/19 05:45 Direct Bilirubin 0.2 mg/dL (0.0-0.4) 05/20/19 05:45 Neonat Total Bilirubin Not Reportable 05/20/19 05:45 Neonat Direct Bilirubin Not Reportable 05/20/19 05:45 Neonat Indirect Bili Not Reportable 05/20/19 05:45 GGT 26 U/L (8-78) 05/19/19 18:51 AST 22 U/L (17-59) 05/20/19 05:45 ALT 11 U/L (<50) 05/20/19 05:45 Alkaline Phosphatase 104 U/L (38-126) 05/20/19 05:45 Lactate Dehydrogenase 144 U/L (120-246) 05/21/19 09:48 Troponin I < 0.012 ng/mL 05/19/19 10:40 Total Protein 6.1 g/dL (6.3-8.2) L 05/20/19 05:45 Albumin 2.9 g/dL (3.5-5.0) L 05/20/19 05:45 Lipase 28.6 U/L (23-300) 05/19/19 10:40 Urine Color YELLOW 05/19/19 10:40 Urine Appearance SLIGHTLY-CLOUDY 05/19/19 10:40 Urine pH 5.0 (5.0-9.0) 05/19/19 10:40 Ur Specific [place] 1.021 05/19/19 10:40 Urine Protein 100 mg/dL (NEGATIVE) H 05/19/19 10:40 Urine Glucose (UA) NEGATIVE mg/dL (NEGATIVE) 05/19/19 10:40 Urine Ketones TRACE mg/dL (NEGATIVE) H 05/19/19 10:40 Urine Blood NEGATIVE (NEGATIVE) 05/19/19 10:40 Urine Nitrite NEGATIVE (NEGATIVE) 05/19/19 10:40 Urine Bilirubin NEGATIVE (NEGATIVE) 05/19/19 10:40 Urine Urobilinogen 2.0 mg/dL (<2.0) H 05/19/19 10:40 Ur Leukocyte Esterase NEGATIVE (NEGATIVE) 05/19/19 10:40 Urine WBC (Auto) 5 /HPF 05/19/19 10:40 Urine RBC (Auto) 2 /HPF 05/19/19 10:40 U Hyaline Cast (Auto) 20 /LPF 05/19/19 10:40 Squamous Epi Cells Auto 1 /HPF 05/19/19 10:40 Urine Mucus (Auto) MOD /LPF 05/19/19 10:40 Urine Ascorbic Acid NEGATIVE (NEGATIVE) 05/19/19 10:40 Serum Alcohol < 10 mg/dL (NONE DETECTED) 05/19/19 10:40 Influenza A (Rapid) NEGATIVE (NEGATIVE) 05/19/19 12:12 Influenza B (Rapid) NEGATIVE (NEGATIVE) 05/19/19 12:12 05/19/19 10:40 Troponin I < 0.012 Impressions: Abdomen/Pelvis CT 05/19/19 10:30 IMPRESSION: Enlarged left external iliac nodes, largest measuring 4 cm with mild adjacent inflammatory changes in the pelvic fat. Mildly increased adenopathy throughout the pelvis and retroperitoneum. Similar splenomegaly. Chest X-Ray 05/19/19 12:58 IMPRESSION: NO ACUTE RADIOGRAPHIC FINDING IN THE CHEST. Plan Time Spent: Greater than 30 Minutes Stroke Is this a Stroke Patient?: No Acute Heart Failure - Is this a Heart Failure Patient?: No
== END 2019-05-21 12:45 | disposition home or self-care (01) ==
LOC: ER 10:01 → EH 15:13 → 4N 16:25
PROVIDERS: ADMIT Hospitalist; ATTEND Hospitalist
DX: A41.9 Sepsis, unspecified organism (principal); E87.1 Hypo-osmolality and hyponatremia; E86.0 Dehydration; B86 Scabies; F10.20 Alcohol dependence, uncomplicated; N17.9 Acute kidney failure, unspecified; E89.6 Postprocedural adrenocortical (-medullary) hypofunction; I10 Essential (primary) hypertension; J44.9 Chronic obstructive pulmonary disease, unspecified; F31.9 Bipolar disorder, unspecified; F17.200 Nicotine dependence, unspecified, uncomplicated; R59.1 Generalized enlarged lymph nodes; R42 Dizziness and giddiness; R10.33 Periumbilical pain; Z85.89 Personal history of malignant neoplasm of other organs and systems; Z80.1 Family history of malignant neoplasm of trachea, bronchus and lung; Z80.8 Family history of malignant neoplasm of other organs or systems
CPT/HCPCS: 93005; 99285; 96361; 96375; 96365; 36415 ×3; 87040; 80307; 82977; 83615; 83690; 83735 ×2; 85025 ×3; 80076; 80048 ×2; 80053; 81001; 84484; 83605; 87804; 71045; 74177; 93010; J1644 ×2; J1720 ×4; J3490 ×7; J2405; J7030 ×2; J0696 ×3; G0378

== ENCOUNTER 2019-05-23 18:20 | Emergency (ER) | payer OTHER ==
--- NOTE | 2019-05-23 18:42 | ER Document Report ---
ED Medical Screen (RME) - General Chief Complaint: Knee Pain Stated Complaint: RIGHT KNEE SWELLING Time Seen by Provider: 05/23/19 18:40 Primary Care Provider: FABIANA LERMA MD [Primary Care Provider] - Follow up as needed Mode of Arrival: Medic Information source: Patient Notes: 53-year-old male presented to ED for complaint of numbness and no feeling in his left hand when he woke up this morning. He also states that his left hand is swollen and he has pain and swelling to both knees. He states he was just in the emergency room on Saturday for low sodium low blood pressure and adrenal gland problems. Blood pressure at this time is 81/41 I have greeted and performed a rapid initial assessment of this patient. A comprehensive ED assessment and evaluation of the patient, analysis of test results and completion of medical decision making process will be conducted by an additional ED providers. TRAVEL OUTSIDE OF THE [place] IN LAST 30 DAYS: No - Related Data Allergies/Adverse Reactions: No Known Allergies Allergy (Verified 05/19/19 11:37) Past Medical History - Past Medical History Cardiac Medical History: Reports: Hx Hypertension Pulmonary Medical History: Reports: Hx Asthma, Hx COPD Neurological Medical History: Denies: Hx Seizures Endocrine Medical History: Denies: Hx Diabetes Mellitus Type 2, Hx Hyperthyroidism Renal/ Medical History: Denies: Hx End Stage Renal Disease, Hx Peritoneal Dialysis GI Medical History: Denies: Hx Cirrhosis, Hx Gastroesophageal Reflux Disease, Hx Hiatal Hernia Musculoskeltal Medical History: Denies Hx Arthritis, Denies Hx Fibromyalgia, Denies Hx Gout, Reports Hx Musculoskeletal Trauma Psychiatric Medical History: Reports: Hx Bipolar Disorder, Hx Depression Past Surgical History: Reports: Hx Orthopedic Surgery - plate/screws in toe, Other - Left adrenalectomy - Immunizations Hx Diphtheria, Pertussis, Tetanus Vaccination: Yes Doctor's Discharge - Discharge Referrals: FABIANA LERMA MD [Primary Care Provider] - Follow up as needed
[2019-05-23] MEDS ORDERED: NORMAL SALINE 1000 ML 1,000 ML IV ONE ×2 (18:50→21:40)
[2019-05-23] MEDS ORDERED: HYDROCORTISONE SOD SUCCINATE INJ/PF 100 MG/2 ML SDV IV ONE (18:50)
[2019-05-23 19:23] LABS: ABSOLUTE BASOPHILS # (AUTO) 0.1 10^3/uL (0.0-0.2); ABSOLUTE EOSINOPHILS # (AUTO) 1.4 10^3/uL (0.0-0.6); ABSOLUTE LYMPHOCYTES (AUTO) 4.2 10^3/uL (0.5-4.7); ABSOLUTE MONOCYTES (AUTO) 1.1 10^3/uL (0.1-1.4); ABSOLUTE NEUT (AUTO) 7.8 10^3/uL (1.7-8.2); BASOPHILS % (AUTO) 0.9 % (0-2); EOSINOPHILS % (AUTO) 9.5 % (0-6); HEMATOCRIT 34.7 % (37.9-51.0); HEMOGLOBIN 11.5 g/dL (13.5-17.0); LYMPHOCYTES % (AUTO) 28.7 % (13-45); MEAN CORPUSCULAR HEMOGLOBIN 27.7 pg (27.0-33.4); MEAN CORPUSCULAR HGB CONC 33.2 g/dL (32.0-36.0); MEAN CORPUSCULAR VOLUME 84 fl (80-97); MONOCYTES % (AUTO) 7.3 % (3-13); PLATELET COUNT 242 10^3/uL (150-450); RED BLOOD COUNT 4.15 10^6/uL (4.35-5.55); RED CELL DISTRIBUTION WIDTH 13.9 % (11.5-14.0); SEGMENTED NEUTROPHILS % (AUTO) 53.6 % (42-78); TOTAL CELLS COUNTED % (AUTO) 100 %
[2019-05-23 19:26] LABS: WHITE BLOOD COUNT 14.5 10^3/uL (4.0-10.5)
[2019-05-23 19:42] LABS: ALBUMIN 2.6 g/dL (3.5-5.0); ALKALINE PHOSPHATASE 80 U/L (38-126); ANION GAP 8 (5-19); ASPARTATE AMINO TRANSFERASE 29 U/L (17-59); BILIRUBIN,DIRECT 0.1 mg/dL (0.0-0.4); BILIRUBIN,TOTAL 1.1 mg/dL (0.2-1.3); BLOOD UREA NITROGEN 14 mg/dL (7-20); CALCIUM 8.5 mg/dL (8.4-10.2); CARBON DIOXIDE 23 mmol/L (22-30); CHLORIDE 98 mmol/L (98-107); GLUCOSE 90 mg/dL (75-110); POTASSIUM 3.7 mmol/L (3.6-5.0); TOTAL PROTEIN 5.5 g/dL (6.3-8.2)
[2019-05-23 19:44] LABS: CREATINE KINASE < 20 U/L (55-170)
[2019-05-23 21:44] LABS: APPEARANCE,URINE CLEAR; BILIRUBIN,URINE NEGATIVE (NEGATIVE); COLOR,URINE YELLOW; GLUCOSE, URINE NEGATIVE (NEGATIVE); KETONES,URINE NEGATIVE (NEGATIVE); PROTEIN,URINE NEGATIVE (NEGATIVE); URINE SPECIFIC GRAVITY 1.016; UROBILINOGEN,URINE NEGATIVE mg/dL (<2.0)
--- NOTE | 2019-05-23 21:47 | ER Document Report ---
ED General - General Chief Complaint: Knee Pain Stated Complaint: RIGHT KNEE SWELLING Time Seen by Provider: 05/23/19 18:40 Primary Care Provider: FABIANA LERMA MD [Primary Care Provider] - Follow up as needed Mode of Arrival: Medic Information source: Patient TRAVEL OUTSIDE OF THE [place] IN LAST 30 DAYS: No - HPI Patient complains to provider of: Right knee pain and numbness in his left arm which has gotten better Onset: This afternoon Onset/Duration: Gradual. denies: Sudden, Constant, Intermittent, Persistent, Waxing and waning, Better, Worse, Gone Quality of pain: Achy. denies: No pain, Burning, Cramping, Dull, Fullness, Pressure, Sharp, Stabbing, Throbbing, Other Severity: Mild Associated symptoms: denies: None, Allergy/hay fever, Body/muscle aches, Chest pain, Chills, Nonproductive cough, Productive cough, Diarrhea, Drooling, Earache, Fever, Headache, Hoarseness, Hurts to breath, Leg swelling, Nausea, Vomiting, Rhinnorhea, Sinus pain/drainage, Shortness of breath, Slow to respond, Sore throat, Sweating, Weakness, Other Exacerbated by: denies: Denies, Supine, Sitting, Standing, Movement, Walking, Coughing, Deep breathing, Food, Other Relieved by: denies: Denies, Supine, Sitting, Standing, Remaining still, Antacids, Food, Other Notes: Note patient is a 52-year-old with history of status post adrenal x1 also times that he was found recently to be low have low sodium and presents with right knee pain and swelling and also numbness in his left arm that he said he had earlier which has resolved at this time he does says it painful to move his arm but no specific area hurts to palpation he has good muscle strength however he is having increased abdominal pain in the last 2 days with being mildly hypotensive here on presentation. - Related Data Allergies/Adverse Reactions: No Known Allergies Allergy (Verified 05/19/19 11:37) Past Medical History - General Information source: Patient - Social History Smoking Status: Never Smoker Frequency of alcohol use: None Drug Abuse: None Family History: Reviewed & Not Pertinent, Other Patient has suicidal ideation: No Patient has homicidal ideation: No - Past Medical History Cardiac Medical History: Reports: Hx Hypertension Pulmonary Medical History: Reports: Hx Asthma, Hx COPD Neurological Medical History: Denies: Hx Seizures Endocrine Medical History: Denies: Hx Diabetes Mellitus Type 2, Hx Hyperthyroidism Renal/ Medical History: Denies: Hx End Stage Renal Disease, Hx Peritoneal Dialysis GI Medical History: Denies: Hx Cirrhosis, Hx Gastroesophageal Reflux Disease, Hx Hiatal Hernia Musculoskeletal Medical History: Denies Hx Arthritis, Denies Hx Fibromyalgia, Denies Hx Gout, Reports Hx Musculoskeletal Trauma Psychiatric Medical History: Reports: Hx Bipolar Disorder, Hx Depression Past Surgical History: Reports: Hx Orthopedic Surgery - plate/screws in toe, Other - Left adrenalectomy - Immunizations Hx Diphtheria, Pertussis, Tetanus Vaccination: Yes Review of Systems - Review of Systems Constitutional: Malaise. denies: No symptoms reported, See HPI, Chills, Diaphoresis, Fever, Weakness, Other, Weight gain, Weight loss, Recent illness EENT: denies: No symptoms reported, See HPI, Eye pain, Eye discharge, Blurred vision, Tearing, Double vision, Ear pain, Ear discharge, Nose pain, Nose congestion, Nose discharge, Sinus pressure, Sinus discharge, Throat pain, Difficulty swallowing, Throat swelling, Mouth pain, Mouth swelling, Dental problem, Vertigo, Other Cardiovascular: denies: No symptoms reported, See HPI, Chest pain, Palpitations, Heart racing, Orthopnea, Dyspnea, Syncope, Dizziness, Lightheaded, Edema, Other, Paroxysmal Nocturnal Dysp Respiratory: denies: No symptoms reported, See HPI, Cough, Hurts to breathe, Hemoptysis, Short of breath, Sputum, Stridor, Wheezing, Other Gastrointestinal: Abdomen distended, Abdominal pain. denies: No symptoms reported, See HPI, Diarrhea, Nausea, Vomiting, Constipation, Blood streaked bowels, Poor appetite, Poor fluid intake, Blood in vomit, Black stools, Rectal bleeding, Last bowel movement, Fecal incontinence, Other Male Genitourinary: denies: No symptoms reported, See HPI, Erectile dysfunction, Testicular pain, Penile discharge, Other Musculoskeletal: Joint pain, Joint swelling. denies: No symptoms reported, See HPI, Back pain, Gout, Muscle pain, Muscle stiffness, Neck pain, Deformity, Leg swelling, Ankle swelling, Other Neurological/Psychological: Tingling. denies: No symptoms reported, See HPI, Confusion, Dementia, Depression, Hallucinations, Anxiety, Homicidal ideation, Sensory change, Weakness, Gait changes, Loss of power, Paralysis, Seizure, Lost consciousness, Headaches, Speech impairment, Numbness, Suicidal ideation, Tremor, Other -: Yes All other systems reviewed and negative Physical Exam - Vital signs Vitals: Temp Pulse Resp BP Pulse Ox 97.5 F 117 H 16 81/41 L 95 05/23/19 18:41 05/23/19 18:41 05/23/19 18:41 05/23/19 18:41 05/23/19 18:41 Notes: PHYSICAL EXAMINATION: GENERAL: Well-appearing, well-nourished and in no acute distress. HEAD: Atraumatic, normocephalic. EYES: Pupils equal round and reactive to light, extraocular movements intact, sclera anicteric, conjunctiva are normal. ENT: nares patent, oropharynx clear without exudates. Moist mucous membranes. NECK: Normal range of motion, supple without lymphadenopathy LUNGS: Breath sounds clear to auscultation bilaterally and equal. No wheezes rales or rhonchi. HEART: Regular rate and rhythm without murmurs ABDOMEN: Soft, tenderness in the lower abdomen. Appear distended, normoactive bowel sounds. No guarding, no rebound. No masses appreciated. EXTREMITIES: Normal range of motion, no pitting or edema. No cyanosis. Pain to palpation over the medial knee however there is no obvious effusion full range of motion on the right side. Left side is clear as his left upper extremity. Right upper extremity is normal. Muscle strength is 5 out of 5 bilaterally both upper and lower extremities. NEUROLOGICAL: No focal neurological deficits. Moves all extremities spontaneously and on command. PSYCH: Normal mood, normal affect. SKIN: Warm, Dry, normal turgor, no rashes or lesions noted. Course - Vital Signs Vital signs: Temp Pulse Resp BP Pulse Ox 97.6 F 89 13 96/52 L 97 05/23/19 21:00 05/24/19 00:45 05/24/19 00:01 05/24/19 00:45 05/24/19 00:01 - Laboratory Result Diagrams: 05/23/19 18:52 05/23/19 18:52 Laboratory results interpreted by me: 05/23/19 05/23/19 18:52 18:52 WBC 14.5 H D RBC 4.15 L Hgb 11.5 L Hct 34.7 L Eos % (Auto) 9.5 H Absolute Eos (auto) 1.4 H Sodium 129.3 L Creatine Kinase < 20 L Total Protein 5.5 L Albumin 2.6 L - Diagnostic Test Radiology reviewed: Image reviewed, Reports reviewed - EKG Interpretation by Me Rate: Normal Rhythm: NSR When compared to previous EKG there are: No significant change - Transfer of Care Notes: 05/24/19 00:04 Note patient claims he always has low blood pressure although he has a minimally elevated white count this could be secondary to the steroids he has taken and also his blood pressure was low has increased and improved greatly after 2 L of fluid up to about 114/80. We will patient could be either admitted or sent home as he does have the adrenal insufficiency she would rather try it at home the small pleural effusions he would rather try some mild Lasix dose which I believe may help him here. His O2 sat is 100% he is not short of breath. Leave much of this is due to the hyponatremia far as the blood pressure. It was responsive to IV fluids. His knee I believe with a knee immobilizer he can follow-up with his doctor for referral to orthopedics if it does not get better. I will send him home with a to go back pack with [place]. His can watch on him if he gets any worse short of breath or condition worsens to return. He was able to walk around emergency department with a normal blood pressure and sats over 96% without any difficulty. Discharge - Discharge Clinical Impression: Hyponatremia, Adrenal insufficiency, minimal pleural effusions Internal derangement of knee Qualifiers: Laterality: right Qualified Code(s): M23.91 - Unspecified internal derangement of right knee Condition: Good Disposition: HOME, SELF-CARE Instructions: Suspected Internal Knee Injury ([facility]), Knee Immobilizing Splint ([facility]), Oral Narcotic Medication ([facility]) Additional Instructions: All up with your regular doctor return if you are any worse such as shortness of breath weakness or condition worsens follow-up with orthopedics for your knee as discussed Prescriptions: Hydrocodone/Acetaminophen [[place] 5-325 Tablet] 1 each PO Q6 PRN #20 tablet PRN Reason: For Pain Scale 2-4 Referrals: FABIANA LERMA MD [Primary Care Provider] - Follow up as needed
--- NOTE | 2019-05-23 23:01 | RADIOLOGY REPORT (SQ) ---
EXAM DESCRIPTION: RadLex: CT ABDOMEN PELVIS WITH IV CONTRAST CLINICAL HISTORY: 53 years Male; abd pain hypotension TECHNIQUE: CT of the abdomen and pelvis using intravenous contrast. All CT scans at this facility use dose modulation, iterative reconstruction, and/or weight based dosing when appropriate to reduce radiation dose to as low as reasonably achievable. COMPARISON: CT 05/19/2019 FINDINGS: There are new bilateral pleural effusions approximately 2 cm AP thickness, with associated partial atelectasis of both lower lobes. Abdomen: Liver:No focal lesions. No intrahepatic ductal distention. Gallbladder:Nondistended Pancreas:Within normal limits Spleen: Enlarged as on prior exam. Right kidney:No hydronephrosis. No focal lesion. Left kidney:No hydronephrosis. No focal lesion. Adrenal glands: Possible 1.3 x 2.4 x 2.8 cm fat density lesion of the right adrenal gland is unchanged, consistent with myelolipoma. Left adrenal not identified. Vascular structures: Aorta and major branches remain patent. No portal venous filling defects. Pelvis: Small bowel:No significant distention. Appendix: Not reliably identified. Colon:No distention or acute pericolonic edema. No free intraperitoneal fluid or air. Bones: No acute bone findings. Bladder: Unremarkable. Bulky bilateral iliac chain lymph nodes are again noted. [employer] node that measured 4 cm on prior exam now measures 2.8 cm. Other nodes demonstrate similar decrease in size. Multiple retroperitoneal lymph nodes are also smaller. IMPRESSION: 1. New small low-density bilateral pleural effusions since 05/19/2019 2. Bulky retroperitoneal, internal iliac, and inguinal lymph nodes have decreased in size since 05/19/2019. 3. Splenomegaly, unchanged 4. Exam is otherwise unchanged. 5. Possible right adrenal myelolipoma.
--- NOTE | 2019-05-23 23:07 | RADIOLOGY REPORT (SQ) ---
EXAM DESCRIPTION: Right knee 3 views Rad[facility]: XR KNEE 3 VIEWS Views: 3 CLINICAL HISTORY: 53 years Male, fx COMPARISON: None. FINDINGS: Negative for acute fracture, dislocation, or radiopaque foreign body. No patellar subluxation. No joint effusion. IMPRESSION: 1. No acute findings.
--- NOTE | 2019-05-24 00:25 | EKG REPORT ---
SEVERITY:- OTHERWISE NORMAL ECG - SINUS RHYTHM VENTRICULAR PREMATURE COMPLEX LOW VOLTAGE IN FRONTAL LEADS : Confirmed by: Fatuma Kimble 24-May-2019 00:24:18
[2019-05-24] MEDS ORDERED: HYDROCODONE/ACETAMINOPHEN 5-325 MG (6 TAB/ER DISP) PO PRN (01:00)
[2019-05-24 01:14] VITALS: BP 91/55
== END 2019-05-24 01:33 | disposition home or self-care (01) ==
LOC: ER 18:20
DX: E87.1 Hypo-osmolality and hyponatremia (principal); E27.40 Unspecified adrenocortical insufficiency; J90 Pleural effusion, not elsewhere classified; M25.561 Pain in right knee; R20.0 Anesthesia of skin; M79.89 Other specified soft tissue disorders; I10 Essential (primary) hypertension; J44.9 Chronic obstructive pulmonary disease, unspecified
CPT/HCPCS: 93005; 36415; 82553; 82550; 83690; 85025; 80053; 81001; 84484; 73562; 74177; 93010; L1830; J1720; J7030; 96361; 96374; 99284

== ENCOUNTER 2019-07-06 09:22 | Emergency (ER) | payer OTHER ==
--- NOTE | 2019-07-06 09:36 | ER Document Report ---
ED Medical Screen (RME) - General Chief Complaint: Abdominal Pain Stated Complaint: FLANK PAIN Time Seen by Provider: 07/06/19 09:32 Primary Care Provider: KRYSTAL BARNES MD [Primary Care Provider] - Follow up as needed Notes: Patient is a 53-year-old male who presents emergency department with a chief complaint of left upper quadrant pain. Patient reports this is been ongoing for 1 year but worse over the past few days. Patient reports he has been seen multiple times in the emergency department for this same type of pain. Patient reports they thought he initially had cancer and they did remove his left adrena l gland. Patient reports this was negative for cancer when biopsied but they are still concerned for possible malignancy somewhere in his body. He states he was supposed to have an upper and lower endoscopy but did not have the money to pay the co-pay. Patient reports over the past 2 weeks he has been eating and drinking appropriately but did have an 18 pound weight loss. Patient reports he is urinating normally. Patient reports that his left upper quadrant pain is sharp in nature. Patient reports he does have the occasional beer but is not a heavy drinker. Patient denies recreational drug use. TRAVEL OUTSIDE OF THE [place] IN LAST 30 DAYS: No - Related Data Allergies/Adverse Reactions: No Known Allergies Allergy (Verified 05/19/19 11:37) Past Medical History - Social History Chew tobacco use (# tins/day): No Frequency of alcohol use: Occasional Drug Abuse: None - Past Medical History Cardiac Medical History: Reports: Hx Hypertension Pulmonary Medical History: Reports: Hx Asthma, Hx COPD Neurological Medical History: Denies: Hx Seizures Endocrine Medical History: Denies: Hx Diabetes Mellitus Type 2, Hx Hyperthyroidism Renal/ Medical History: Denies: Hx End Stage Renal Disease, Hx Peritoneal Dialysis GI Medical History: Denies: Hx Cirrhosis, Hx Gastroesophageal Reflux Disease, Hx Hiatal Hernia Musculoskeltal Medical History: Denies Hx Arthritis, Denies Hx Fibromyalgia, Denies Hx Gout, Reports Hx Musculoskeletal Trauma Psychiatric Medical History: Reports: Hx Bipolar Disorder, Hx Depression Past Surgical History: Reports: Hx Orthopedic Surgery - plate/screws in toe, Other - Left adrenalectomy - Immunizations Hx Diphtheria, Pertussis, Tetanus Vaccination: Yes Physical Exam - Abdominal Inspection: Normal Distension: No distension Bowel sounds: Normal Tenderness: Tender - luq Organomegaly: No organomegaly Course - Re-evaluation Re-evalutation: 07/06/19 09:36 I have greeted and performed a rapid initial assessment of this patient. A comprehensive ED assessment and evaluation of the patient, analysis of test results and completion of the medical decision making process will be conducted by additional ED providers. Doctor's Discharge - Discharge Referrals: KRYSTAL BARNES MD [Primary Care Provider] - Follow up as needed
[2019-07-06 10:03] LABS: ABSOLUTE EOSINOPHILS # (AUTO) 1.8 10^3/uL (0.0-0.6); ABSOLUTE LYMPHOCYTES (AUTO) 1.4 10^3/uL (0.5-4.7); ABSOLUTE MONOCYTES (AUTO) 0.7 10^3/uL (0.1-1.4); ABSOLUTE NEUT (AUTO) 3.9 10^3/uL (1.7-8.2); BASOPHILS % (AUTO) 0.4 % (0-2); EOSINOPHILS % (AUTO) 22.7 % (0-6); HEMATOCRIT 38.2 % (37.9-51.0); HEMOGLOBIN 13.3 g/dL (13.5-17.0); LYMPHOCYTES % (AUTO) 18.3 % (13-45); MEAN CORPUSCULAR HEMOGLOBIN 27.4 pg (27.0-33.4); MEAN CORPUSCULAR HGB CONC 34.8 g/dL (32.0-36.0); MEAN CORPUSCULAR VOLUME 79 fl (80-97); MONOCYTES % (AUTO) 8.6 % (3-13); PLATELET COUNT 244 10^3/uL (150-450); RED BLOOD COUNT 4.85 10^6/uL (4.35-5.55); RED CELL DISTRIBUTION WIDTH 15.7 % (11.5-14.0); TOTAL CELLS COUNTED % (AUTO) 100 %; WHITE BLOOD COUNT 7.8 10^3/uL (4.0-10.5)
[2019-07-06 10:09] LABS: APPEARANCE,URINE SLIGHTLY-CLOUDY; BILIRUBIN,URINE NEGATIVE (NEGATIVE); CALCIUM OXALATE CRYSTALS,URINE FEW /HPF; COLOR,URINE AMBER; GLUCOSE, URINE NEGATIVE (NEGATIVE); KETONES,URINE NEGATIVE (NEGATIVE); LEUKOCYTE ESTERASE,URINE NEGATIVE (NEGATIVE); NITRITE,URINE NEGATIVE (NEGATIVE); PROTEIN,URINE 30 mg/dL (NEGATIVE); URINE SPECIFIC GRAVITY 1.024
[2019-07-06 10:28] LABS: ALKALINE PHOSPHATASE 203 U/L (38-126); ANION GAP 14 (5-19); ASPARTATE AMINO TRANSFERASE 35 U/L (17-59); BILIRUBIN,DIRECT 0.7 mg/dL (0.0-0.4); BILIRUBIN,TOTAL 2.2 mg/dL (0.2-1.3); BLOOD UREA NITROGEN 27 mg/dL (7-20); CALCIUM 10.9 mg/dL (8.4-10.2); CARBON DIOXIDE 21 mmol/L (22-30); CHLORIDE 87 mmol/L (98-107); GLUCOSE 111 mg/dL (75-110); POTASSIUM 5.1 mmol/L (3.6-5.0); TOTAL PROTEIN 7.9 g/dL (6.3-8.2)
--- NOTE | 2019-07-06 10:47 | RADIOLOGY REPORT (SQ) ---
EXAM DESCRIPTION: CHEST 2 VIEWS COMPLETED DATE/TIME: 07/06/2019 10:31 am REASON FOR STUDY: sob COMPARISON: None. EXAM PARAMETERS: NUMBER OF VIEWS: two views TECHNIQUE: Digital Frontal and Lateral radiographic views of the chest acquired. RADIATION DOSE: NA LIMITATIONS: none FINDINGS: LUNGS AND PLEURA: No opacities, masses or pneumothorax. No pleural effusion. MEDIASTINUM AND HILAR STRUCTURES: No masses or contour abnormalities. HEART AND VASCULAR STRUCTURES: Heart normal size. No evidence for failure. BONES: No acute findings. HARDWARE: None in the chest. Surgical clip overlies upper abdomen and right axilla. OTHER: No other significant finding. IMPRESSION: NO ACUTE RADIOGRAPHIC FINDING IN THE CHEST. TECHNICAL DOCUMENTATION: JOB ID: [id number] [employer]- All Rights Reserved Reading location - IP/workstation name: [email or web address]
[2019-07-06] MEDS ORDERED: NORMAL SALINE 1000 ML 1,000 ML IV ONE (11:17)
[2019-07-06] MEDS ORDERED: MORPHINE SULFATE 10 MG/ML INJ IV ONE (11:30)
--- NOTE | 2019-07-06 11:42 | ER Document Report ---
ED GI/ <MADISAIMA SMITH P - Last Filed: 07/06/19 15:22> - General TRAVEL OUTSIDE OF THE [place] IN LAST 30 DAYS: No <FLOR WARREN - Last Filed: 07/06/19 15:45> - General Chief Complaint: Abdominal Pain Stated Complaint: FLANK PAIN Time Seen by Provider: 07/06/19 09:32 Primary Care Provider: KRYSTAL BARNES MD [ACTIVE STAFF] - Follow up as needed THOMAS YOO MD [ACTIVE STAFF] - Follow up in 3-5 days (Call tomorrow) Notes: 53-year-old male with past medical history of left adrenalectomy presents with worsening left upper quadrant pain and right flank pain. Patient has been having left upper quadrant pain for the past year and has been seen in this ER multiple times for same. Patient states that right flank is new and just started a few days ago. Patient also reports an unexplained 20 pound weight loss in approximately 6 weeks. Patient states he has been eating and drinking normally. Patient had left lateral neck to me last year due to left adrenal mass. Patient was followed by oncologist Dr. Yoo. Patient denies any nausea, vomiting, diarrhea, constipation, fevers, chills, dysuria, hematuria, chest pain, dyspnea. Patient does state his urine has been darker than usual. (FLOR WARREN) - Related Data Allergies/Adverse Reactions: No Known Allergies Allergy (Verified 05/19/19 11:37) Past Medical History - Social History Smoking Status: Never Smoker Chew tobacco use (# tins/day): No Frequency of alcohol use: Occasional Drug Abuse: None Family History: Reviewed & Not Pertinent, Other Patient has suicidal ideation: No Patient has homicidal ideation: No - Past Medical History Cardiac Medical History: Reports: Hx Hypertension Pulmonary Medical History: Reports: Hx Asthma, Hx COPD Neurological Medical History: Denies: Hx Seizures Endocrine Medical History: Denies: Hx Diabetes Mellitus Type 2, Hx Hyperthyroi dism Renal/ Medical History: Denies: Hx End Stage Renal Disease, Hx Peritoneal Dialysis GI Medical History: Denies: Hx Cirrhosis, Hx Gastroesophageal Reflux Disease, Hx Hiatal Hernia Musculoskeletal Medical History: Denies Hx Arthritis, Denies Hx Fibromyalgia, Denies Hx Gout, Reports Hx Musculoskeletal Trauma Psychiatric Medical History: Reports: Hx Bipolar Disorder, Hx Depression Past Surgical History: Reports: Hx Orthopedic Surgery - plate/screws in toe, Other - Left adrenalectomy - Immunizations Hx Diphtheria, Pertussis, Tetanus Vaccination: Yes <TJ WARRENI Gurdeep - Last Filed: 07/06/19 15:45> Review of Systems <FLOR WARREN - Last Filed: 07/06/19 15:45> - Review of Systems Notes: Constitutional: Positive for weight loss. Negative for fever. HENT: Negative for sore throat. Eyes: Negative for visual changes. Cardiovascular: Negative for chest pain. Respiratory: Negative for shortness of breath. Gastrointestinal: Positive for abdominal pain and flank pain. Negative for vomiting or diarrhea. Genitourinary: Negative for dysuria. Musculoskeletal: Negative for back pain. Skin: Negative for rash. Neurological: Negative for headaches, weakness or numbness. 10 point ROS negative except as marked above and in HPI. (FLOR WARREN) Physical Exam <YAMIL WARRENREGINA Mackenzie - Last Filed: 07/06/19 15:45> - Vital signs Vitals: Temp Pulse Resp BP Pulse Ox 97.8 F 69 16 127/52 H 96 07/06/19 15:11 07/06/19 15:11 07/06/19 15:11 07/06/19 15:11 07/06/19 15:11 - Notes Notes: GENERAL: Well-appearing, well-nourished and uncomfortable. HEAD: Atraumatic, normocephalic. EYES: Extraocular movements intact, sclera anicteric, conjunctiva are normal. NECK: Normal range of motion, supple without lymphadenopathy or JVD. LUNGS: Breath sounds clear to auscultation bilaterally and equal. No wheezes rales or rhonchi. HEART: Regular rate and rhythm without murmurs, rubs or gallops. ABDOMEN: Soft, tenderness to LUQ. No CVA tenderness. No guarding, no rebound. No masses appreciated. EXTREMITIES: Normal range of motion, no pitting or edema. No clubbing or cyanosis. NEUROLOGICAL: Cranial nerves II through XII grossly intact. Normal speech, normal gait. PSYCH: Normal mood, normal affect. SKIN: Warm, Dry, decreased turgor ([place]) Course - Laboratory Result Diagrams: 07/06/19 09:51 07/06/19 09:51 <SAIMA AMADO P - Last Filed: 07/06/19 15:22> - Laboratory Result Diagrams: 07/06/19 09:51 07/06/19 09:51 <FLOR WARREN - Last Filed: 07/06/19 15:45> - Re-evaluation Re-evalutation: 07/06/19 53-year-old male presents with abdominal pain, right flank pain, dark urine, and 20 pound weight loss. History of left adrenalectomy due to left adrenal mass. Afebrile, nontoxic, well appearing. Abdomen soft, tenderness to left upper quadrant without guarding/rebound. Lab work shows DARIUS and elevated alk phos. No leukocytosis. Due to weight loss and new right flank pain CT abdomen/pelvis was ordered. IV fluid bolus ordered and morphine ordered. Infectious and biliary causes considered for reason for pt's pain. 07/06/19 15:32 Discussed pt with attending, Dr. Amado, who agrees with plan of care. Pt's CT shows increased adenopathy and fat containing right adrenal mass and hepatic steatosis and splenomegaly which is stable from last CT. Pt's pain controlled with 1 dose of morphine. Discussed all results with pt. Pt would like to go home. Pt has an appointment with his PCP, Dr. Raymond, tomorrow. Pt encouraged to keep this appointment. Pt also instructed to call Dr. Yoo, oncologist, tomorrow for follow up appointment. Strict return precautions given. Pt voices understanding and agrees with plan of care. (FLOR WARREN) - Vital Signs Vital signs: Temp Pulse Resp BP Pulse Ox 97.8 F 69 16 127/52 H 96 07/06/19 15:11 07/06/19 15:11 07/06/19 15:11 07/06/19 15:11 07/06/19 15:11 - Laboratory Laboratory results interpreted by me: 07/06/19 07/06/19 07/06/19 09:51 09:51 09:51 Hgb 13.3 L MCV 79 L RDW 15.7 H Eos % (Auto) 22.7 H Absolute Eos (auto) 1.8 H Sodium 122.1 L Potassium 5.1 H Chloride 87 L Carbon Dioxide 21 L BUN 27 H Creatinine 1.40 H Est GFR (MDRD) Non-Af 53 L Glucose 111 H Calcium 10.9 H Total Bilirubin 2.2 H Direct Bilirubin 0.7 H Alkaline Phosphatase 203 H Urine Protein 30 H Urine Urobilinogen 4.0 H Discharge <MADISAIMA P - Last Filed: 07/06/19 15:22> <FLOR WARREN R - Last Filed: 07/06/19 15:45> - Discharge Clinical Impression: Right adrenal mass Abdominal pain Qualifiers: Abdominal location: left upper quadrant Qualified Code(s): R10.12 - Left upper quadrant pain Condition: Stable Disposition: HOME, SELF-CARE Additional Instructions: Please follow-up with your primary care doctor tomorrow as scheduled. Please call Dr. Yoo's office tomorrow for a follow-up appointment. Please take pain medicine as prescribed. Do not drink/drive while taking it as it will make you drowsy. Return to ER for any worsening symptoms, including fever, worsening pain, vomiting, or any other symptoms that are concerning to you. Prescriptions: Oxycodone HCl/Acetaminophen [Percocet 5-325 mg Tablet] 1 - 2 tab PO Q4H PRN #15 tablet PRN Reason: Forms: Parent Work Note Referrals: KRYSTAL BARNES MD [ACTIVE STAFF] - Follow up as needed THOMAS YOO MD [ACTIVE STAFF] - Follow up in 3-5 days (Call tomorrow)
--- NOTE | 2019-07-06 15:00 | RADIOLOGY REPORT (SQ) ---
EXAM DESCRIPTION: CT ABD/PELVIS WITH IV ORAL COMPLETED DATE/TIME: 07/06/2019 2:36 pm REASON FOR STUDY: abd pain, rt flank pain, 20lb wtloss, hx adrenalCA COMPARISON: 05/23/2019 TECHNIQUE: CT scan of the abdomen and pelvis performed using helical scanning technique with dynamic intravenous contrast injection. Oral contrast. Images reviewed with lung, soft tissue, and bone win dows. Reconstructed coronal and sagittal MPR images reviewed. Delayed images for evaluation of the ur inary system also acquired. All images stored on PACS. All CT scanners at this facility use dose modulation, iterative reconstruction, and/or weight based d osing when appropriate to reduce radiation dose to as low as reasonably achievable (ALARA). [facility]: Dose Right [facility]: CareDose [facility]: Dose Right [facility]: Teradose 4D [facility]: Ayi Laile CONTRAST TYPE AND DOSE: contrast/concentration: Isovue 350.00 mg/ml; Total Contrast Delivered: 53.0 ml; Total Saline Delivered: 65.0 ml RENAL FUNCTION: BUN 27 creatinine 1.4 RADIATION DOSE: CT Rad equipment meets quality standard of care and radiation dose reduction techniq ues were employed. CTDIvol: 4.8 - 4.9 mGy. DLP: 501 mGy-cm.. LIMITATIONS: None. FINDINGS: LOWER CHEST: No significant findings. No nodules or infiltrates. LIVER: Mildly hypoattenuating. No masses. SPLEEN: Splenomegaly. The spleen is 19 cm in length. PANCREAS: No masses. No significant calcifications. No adjacent inflammation or peripancreatic fluid collections. Pancreatic duct not dilated. GALLBLADDER: No identified stones by CT criteria. No inflammatory changes to suggest cholecystitis. ADRENAL GLANDS: Fat containing lesion in the right adrenal gland measures 2.5 cm in largest dimension . RIGHT KIDNEY AND URETER: No solid masses. No significant calcifications. No hydronephrosis or hyd roureter. LEFT KIDNEY AND URETER: No solid masses. No significant calcifications. No hydronephrosis or hydr oureter. AORTA AND VESSELS: No aneurysm. No dissection. Renal arteries, SMA, celiac without stenosis. RETROPERITONEUM: Retroperitoneal adenopathy. Pelvic adenopathy. Inguinal adenopathy. Nodes have in creased since prior study. BOWEL AND PERITONEAL CAVITY: No masses or inflammatory changes. No free fluid or peritoneal masses. APPENDIX: Urinary bladder is normal. Pelvic adenopathy. No free fluid. PELVIS: No mass. No free fluid. Normal bladder. ABDOMINAL WALL: Inguinal adenopathy. BONES: No significant or acute findings. OTHER: No other significant finding. IMPRESSION: 1. Mild hepatic steatosis. 2. Splenomegaly. Retroperitoneal, pelvic, and inguinal adenopathy has increased since the prior dina dy. 3. Fat containing right adrenal mass, benign characteristics. No follow-up imaging is required for this. TECHNICAL DOCUMENTATION: JOB ID: [id number] Quality ID # [id number]: Final reports with documentation of one or more dose reduction techniques (e.g., Au tomated exposure control, adjustment of the mA and/or kV according to patient size, use of iterative reconstruction technique) 2010 [employer]- All Rights Reserved Reading location - IP/workstation name: [email or web address]
[2019-07-06 15:12] VITALS: BP 127/52
== END 2019-07-06 16:28 | disposition home or self-care (01) ==
LOC: ER 09:22
DX: E27.9 Disorder of adrenal gland, unspecified (principal); R10.12 Left upper quadrant pain; R63.4 Abnormal weight loss; R22.1 Localized swelling, mass and lump, neck; I10 Essential (primary) hypertension; J44.9 Chronic obstructive pulmonary disease, unspecified
CPT/HCPCS: 99284; 96361; 96374; 36415; 83690; 85025; 80053; 81001; 71046; 74177; J2270; J7030

== ENCOUNTER 2019-07-09 09:48 | Emergency (ER) | payer OTHER ==
--- NOTE | 2019-07-09 10:15 | ER Document Report ---
ED Medical Screen (RME) - General Chief Complaint: Abnormal Lab Results Stated Complaint: ABNORMAL LABS Time Seen by Provider: 07/09/19 10:07 Primary Care Provider: FABIANA LERMA MD [Primary Care Provider] - Follow up as needed Mode of Arrival: Ambulatory Information source: Patient TRAVEL OUTSIDE OF THE [place] IN LAST 30 DAYS: No - HPI Notes: 07/09/19 10:13 53-year-old male presents to the emergency room for evaluation after his primary care provider, Dr. Lerma, at [facility] first advised him to come for abnormal labs. His serum sodium on Saturday was 120, he did have it repeated at his primary care office, he was notified today via his that the doctor had called and told him to come to the emergency room for reevaluation of his labs. Patient also is being currently treated for scabies. Denies any fevers chills, denies any chest pain shortness of breath, weakness or numbness. Patient is also complaining currently of epigastric pain, he stated he has a "fatty adrenal gland". PHYSICAL EXAMINATION: Vital signs reviewed. GENERAL: Well-appearing, well-nourished and in no acute distress. HEAD: Atraumatic, normocephalic. NECK: Normal range of motion CV: Heart regular rate and rhythm LUNGS: No respiratory distress ABD: epigastric abd pain Musculoskeletal: Normal range of motion NEUROLOGICAL: Normal speech PSYCH: Normal mood, normal affect. MDM: Patient seen and examined for rapid initial assessment. Vital signs reviewed. A comprehensive ED assessment and evaluation of the patient, analysis of test results and completion of the medical decision making process will be conducted by additional ED providers. *Note is created using voice recognition software and may contain spelling, syntax or grammatical errors. - Related Data Allergies/Adverse Reactions: No Known Allergies Allergy (Verified 07/09/19 10:09) Past Medical History - Social History Chew tobacco use (# tins/day): Yes Frequency of alcohol use: Occasional Drug Abuse: None - Past Medical History Cardiac Medical History: Reports: Hx Hypertension Pulmonary Medical History: Reports: Hx Asthma, Hx COPD Neurological Medical History: Denies: Hx Seizures Endocrine Medical History: Denies: Hx Diabetes Mellitus Type 2, Hx Hyperthyroidism Renal/ Medical History: Denies: Hx End Stage Renal Disease, Hx Peritoneal Dialysis GI Medical History: Denies: Hx Cirrhosis, Hx Gastroesophageal Reflux Disease, Hx Hiatal Hernia Musculoskeltal Medical History: Denies Hx Arthritis, Denies Hx Fibromyalgia, Denies Hx Gout, Reports Hx Musculoskeletal Trauma Psychiatric Medical History: Reports: Hx Bipolar Disorder, Hx Depression Past Surgical History: Reports: Hx Orthopedic Surgery - plate/screws in toe, Other - Left adrenalectomy - Immunizations Hx Diphtheria, Pertussis, Tetanus Vaccination: Yes Physical Exam - Vital signs Vitals: Temp Pulse Resp BP Pulse Ox 97.5 F 94 18 108/47 L 100 07/09/19 10:04 07/09/19 10:04 07/09/19 10:04 07/09/19 10:04 07/09/19 10:04 Course - Vital Signs Vital signs: Temp Pulse Resp BP Pulse Ox 97.5 F 94 18 108/47 L 100 07/09/19 10:11 07/09/19 10:11 07/09/19 10:11 07/09/19 10:11 07/09/19 10:11 Doctor's Discharge - Discharge Referrals: FABIANA LERMA MD [Primary Care Provider] - Follow up as needed
[2019-07-09 10:54] LABS: APPEARANCE,URINE SLIGHTLY-CLOUDY; BILIRUBIN,URINE NEGATIVE (NEGATIVE); CALCIUM OXALATE CRYSTALS,URINE MANY /HPF; COLOR,URINE YELLOW; GLUCOSE, URINE NEGATIVE (NEGATIVE); KETONES,URINE NEGATIVE (NEGATIVE); LEUKOCYTE ESTERASE,URINE NEGATIVE (NEGATIVE); NITRITE,URINE NEGATIVE (NEGATIVE); PROTEIN,URINE NEGATIVE (NEGATIVE); URINE SPECIFIC GRAVITY 1.016; UROBILINOGEN,URINE NEGATIVE mg/dL (<2.0)
[2019-07-09 10:58] LABS: ABSOLUTE BASOPHILS # (AUTO) 0.1 10^3/uL (0.0-0.2); ABSOLUTE EOSINOPHILS # (AUTO) 0.4 10^3/uL (0.0-0.6); ABSOLUTE LYMPHOCYTES (AUTO) 1.1 10^3/uL (0.5-4.7); ABSOLUTE MONOCYTES (AUTO) 0.5 10^3/uL (0.1-1.4); ABSOLUTE NEUT (AUTO) 3.4 10^3/uL (1.7-8.2); BASOPHILS % (AUTO) 1.1 % (0-2); EOSINOPHILS % (AUTO) 7.5 % (0-6); HEMATOCRIT 34.3 % (37.9-51.0); HEMOGLOBIN 12.1 g/dL (13.5-17.0); LYMPHOCYTES % (AUTO) 20.5 % (13-45); MEAN CORPUSCULAR HEMOGLOBIN 27.5 pg (27.0-33.4); MEAN CORPUSCULAR HGB CONC 35.2 g/dL (32.0-36.0); MEAN CORPUSCULAR VOLUME 78 fl (80-97); PLATELET COUNT 288 10^3/uL (150-450); RED BLOOD COUNT 4.39 10^6/uL (4.35-5.55); RED CELL DISTRIBUTION WIDTH 15.9 % (11.5-14.0); SEGMENTED NEUTROPHILS % (AUTO) 61.9 % (42-78); TOTAL CELLS COUNTED % (AUTO) 100 %; WHITE BLOOD COUNT 5.4 10^3/uL (4.0-10.5)
--- NOTE | 2019-07-09 11:02 | RADIOLOGY REPORT (SQ) ---
EXAM DESCRIPTION: CHEST 2 VIEWS COMPLETED DATE/TIME: 07/09/2019 10:39 am REASON FOR STUDY: epigastric pain COMPARISON: PET-CT 02/15/2019 Chest films 03/28/2019, 05/19/2019 EXAM PARAMETERS: NUMBER OF VIEWS: two views TECHNIQUE: Digital Frontal and Lateral radiographic views of the chest acquired. RADIATION DOSE: NA LIMITATIONS: none FINDINGS: LUNGS AND PLEURA: No opacities, masses or pneumothorax. No pleural effusion. MEDIASTINUM AND HILAR STRUCTURES: No masses or contour abnormalities. HEART AND VASCULAR STRUCTURES: Heart normal size. No evidence for failure. BONES: No acute findings. HARDWARE: Surgical clips right axilla OTHER: No other significant finding. IMPRESSION: NO ACUTE RADIOGRAPHIC FINDING IN THE CHEST. TECHNICAL DOCUMENTATION: JOB ID: [id number] [employer]- All Rights Reserved Reading location - IP/workstation name: [email or web address]
[2019-07-09 11:10] LABS: ALBUMIN 4.1 g/dL (3.5-5.0); ALKALINE PHOSPHATASE 177 U/L (38-126); ANION GAP 13 (5-19); ASPARTATE AMINO TRANSFERASE 31 U/L (17-59); BILIRUBIN,DIRECT 0.3 mg/dL (0.0-0.4); BILIRUBIN,TOTAL 0.7 mg/dL (0.2-1.3); BLOOD UREA NITROGEN 24 mg/dL (7-20); CALCIUM 9.7 mg/dL (8.4-10.2); CARBON DIOXIDE 23 mmol/L (22-30); CHLORIDE 96 mmol/L (98-107); CREATINE KINASE 24 U/L (55-170); GLUCOSE 104 mg/dL (75-110); POTASSIUM 5.2 mmol/L (3.6-5.0)
[2019-07-09 11:21] LABS: CREATINE KINASE MB 1.75 ng/mL (<4.55)
[2019-07-09 11:25] LABS: TROPONIN I < 0.012 ng/mL
[2019-07-09 12:30] VITALS: BP 102/64
--- NOTE | 2019-07-09 14:45 | ER Document Report ---
Entered by SHASHANK JON SCRIBE 07/09/19 1125 Acting as scribe for:ALTA ABRAHAM MD ED General - General Chief Complaint: Abnormal Lab Results Stated Complaint: ABNORMAL LABS Time Seen by Provider: 07/09/19 10:07 Primary Care Provider: FABIANA LERMA MD [Primary Care Provider] - Follow up as needed Mode of Arrival: Ambulatory Information source: Patient, [facility] Records Notes: This 53 year old male patient presents to the emergency department today with complaints of a low sodium drawn during outpatient labs. Patient reports that he has had recent weight loss despite eating as he normally would. Patient states this has not really been worked up because "his insurance would not pay for an endoscopy". TRAVEL OUTSIDE OF THE [place] IN LAST 30 DAYS: No - Related Data Allergies/Adverse Reactions: No Known Allergies Allergy (Verified 07/09/19 10:09) Past Medical History - General Information source: Patient, [facility] Records - Social History Smoking Status: Current Every Day Smoker Cigarette use (# per day): Yes Chew tobacco use (# tins/day): Yes Frequency of alcohol use: Heavy Drug Abuse: None Family History: Reviewed & Not Pertinent Patient has suicidal ideation: No Patient has homicidal ideation: No - Past Medical History Cardiac Medical History: Reports: Hx Hypertension Pulmonary Medical History: Reports: Hx Asthma, Hx COPD Musculoskeletal Medical History: Reports Hx Musculoskeletal Trauma Psychiatric Medical History: Reports: Hx Bipolar Disorder, Hx Depression Past Surgical History: Reports: Hx Kidney (Renal Surgery) - unilateral adrenalectomy 08/23, Hx Orthopedic Surgery - plate/screws in toe - Immunizations Hx Diphtheria, Pertussis, Tetanus Vaccination: Yes Review of Systems - Review of Systems Constitutional: See HPI, Other - low sodium during outpatient labs, Weight loss EENT: No symptoms reported Cardiovascular: No symptoms reported Respiratory: No symptoms reported Gastrointestinal: No symptoms reported Genitourinary: No symptoms reported Male Genitourinary: No symptoms reported Musculoskeletal: No symptoms reported Skin: No symptoms reported Hematologic/Lymphatic: No symptoms reported Neurological/Psychological: No symptoms reported -: Yes All other systems reviewed and negative Physical Exam - Vital signs Vitals: Temp Pulse Resp BP Pulse Ox 97.5 F 94 18 108/47 L 100 07/09/19 10:04 07/09/19 10:04 07/09/19 10:04 07/09/19 10:04 07/09/19 10:04 Interpretation: Normal - General General appearance: Appears well, Alert In distress: None - HEENT Head: Normocephalic, Atraumatic Eyes: Normal Pupils: PERRL - Respiratory Respiratory status: No respiratory distress Chest status: Nontender Breath sounds: Normal Chest palpation: Normal - Cardiovascular Rhythm: Regular Heart sounds: Normal auscultation Murmur: No - Abdominal Inspection: Normal Distension: No distension Bowel sounds: Normal Tenderness: Nontender, Other - abdomen soft Organomegaly: No organomegaly - Back Back: Normal, Nontender - Neurological Neuro grossly intact: Yes - Psychological Associated symptoms: Normal affect, Normal mood - Skin Skin Temperature: Warm Skin Moisture: Dry Skin Color: Normal Skin irregularity: other - scabs Course - Vital Signs Vital signs: Temp Pulse Resp BP Pulse Ox 98.3 F 99 18 102/64 98 07/09/19 12:15 07/09/19 12:15 07/09/19 12:15 07/09/19 12:15 07/09/19 12:15 - Laboratory Result Diagrams: 07/09/19 10:20 07/09/19 10:20 Laboratory results interpreted by me: 07/09/19 07/09/19 10:20 10:20 Hgb 12.1 L Hct 34.3 L MCV 78 L RDW 15.9 H Eos % (Auto) 7.5 H Sodium 131.7 L Potassium 5.2 H Chloride 96 L BUN 24 H Alkaline Phosphatase 177 H Creatine Kinase 24 L Discharge - Discharge Clinical Impression: Hyponatremia Condition: Stable Disposition: HOME, SELF-CARE Additional Instructions: Your serum sodium level was 122 to 3 days ago, it is 132 today. You can keep your sodium levels up by increasing sodium in your diet as we discu ssed. You are supposed to follow-up with Dr. Yoo tomorrow, but he reports she canceled that appointment due to a need to work. You should follow-up with your primary care provider at the first of the week to recheck your sodium levels to be sure they are remaining in a normal range. RETURN TO THE EMERGENCY ROOM IF ANY NEW OR WORSENING SYMPTOMS. Forms: Return to Work Referrals: FABIANA LERMA MD [Primary Care Provider] - Follow up as needed I personally performed the services described in the documentation, reviewed and edited the documentation which was dictated to the scribe in my presence, and it accurately records my words and actions.
== END 2019-07-09 12:15 | disposition home or self-care (01) ==
LOC: ER 09:48
DX: E87.1 Hypo-osmolality and hyponatremia (principal); R63.4 Abnormal weight loss; R23.4 Changes in skin texture; I10 Essential (primary) hypertension; J44.9 Chronic obstructive pulmonary disease, unspecified; F17.210 Nicotine dependence, cigarettes, uncomplicated
CPT/HCPCS: 36415; 71046; 80053; 81001; 82550; 82553; 83690; 84484; 85025; 99283

== ENCOUNTER 2019-07-16 09:09 | Emergency (ER) | payer OTHER ==
--- NOTE | 2019-07-16 09:59 | ER Document Report ---
ED Medical Screen (RME) - General Chief Complaint: Hip Pain Stated Complaint: HIP PAIN/LOWER BACK PAIN Time Seen by Provider: 07/16/19 09:50 Primary Care Provider: FABIANA LERMA MD [Primary Care Provider] - Follow up as needed TRAVEL OUTSIDE OF THE [place] IN LAST 30 DAYS: No - HPI Notes: 07/16/19 09:56 53-year-old male with a history of left adrenal mass which presented as left hip pain presents to the emergency room with new onset right hip pain, right flank pain that has become progressively worse, states he is losing weight as well as having abdominal pain. Denies any fevers or chills. Pain has become progressively worse. Denies any nausea or vomiting. His primary care provider, Dr. Lerma, advised him come to the emergency room for concern that this may be due to a right adrenal mass since he presents with the same symptoms as he did previously. PHYSICAL EXAMINATION: Vital signs reviewed. GENERAL: Well-appearing, well-nourished and in no acute distress. HEAD: Atraumatic, normocephalic. NECK: Normal range of motion CV: Heart regular rate and rhythm LUNGS: No respiratory distress ABD: generalized abd pain, R flank pain Musculoskeletal: Normal range of motion NEUROLOGICAL: Normal speech PSYCH: Normal mood, normal affect. MDM: Patient seen and examined for rapid initial assessment. Vital signs reviewed. A comprehensive ED assessment and evaluation of the patient, analysis of test results and completion of the medical decision making process will be conducted by additional ED providers. *Note is created using voice recognition software and may contain spelling, syntax or grammatical errors. - Related Data Allergies/Adverse Reactions: No Known Allergies Allergy (Verified 07/16/19 09:51) Past Medical History - Social History Chew tobacco use (# tins/day): No Frequency of alcohol use: None - Past Medical History Cardiac Medical History: Reports: Hx Hypertension Pulmonary Medical History: Reports: Hx Asthma, Hx COPD Neurological Medical History: Denies: Hx Seizures Endocrine Medical History: Denies: Hx Diabetes Mellitus Type 2, Hx Hyperthyroidism Renal/ Medical History: Denies: Hx End Stage Renal Disease, Hx Peritoneal Dialysis GI Medical History: Denies: Hx Cirrhosis, Hx Gastroesophageal Reflux Disease, Hx Hiatal Hernia Musculoskeltal Medical History: Denies Hx Arthritis, Denies Hx Fibromyalgia, Denies Hx Gout, Reports Hx Musculoskeletal Trauma Psychiatric Medical History: Reports: Hx Bipolar Disorder, Hx Depression Past Surgical History: Reports: Hx Kidney (Renal Surgery) - unilateral adrenalectomy 08/23, Hx Orthopedic Surgery - plate/screws in toe, Other - Left adrenalectomy - Immunizations Hx Diphtheria, Pertussis, Tetanus Vaccination: Yes Physical Exam - Vital signs Vitals: Temp Pulse Resp BP Pulse Ox 98.5 F 109 H 16 104/59 L 100 07/16/19 09:46 07/16/19 09:46 07/16/19 09:46 07/16/19 09:46 07/16/19 09:46 Course - Vital Signs Vital signs: Temp Pulse Resp BP Pulse Ox 98.5 F 109 H 16 104/59 L 100 07/16/19 09:51 07/16/19 09:46 07/16/19 09:51 07/16/19 09:46 07/16/19 09:51 Doctor's Discharge - Discharge Referrals: FABIANA LERMA MD [Primary Care Provider] - Follow up as needed
[2019-07-16 10:29] LABS: ABSOLUTE BASOPHILS # (AUTO) 0.2 10^3/uL (0.0-0.2); ABSOLUTE EOSINOPHILS # (AUTO) 1.5 10^3/uL (0.0-0.6); ABSOLUTE LYMPHOCYTES (AUTO) 1.9 10^3/uL (0.5-4.7); ABSOLUTE MONOCYTES (AUTO) 0.8 10^3/uL (0.1-1.4); ABSOLUTE NEUT (AUTO) 5.2 10^3/uL (1.7-8.2); BASOPHILS % (AUTO) 2.5 % (0-2); EOSINOPHILS % (AUTO) 15.7 % (0-6); HEMATOCRIT 37.7 % (37.9-51.0); HEMOGLOBIN 13.1 g/dL (13.5-17.0); LYMPHOCYTES % (AUTO) 19.8 % (13-45); MEAN CORPUSCULAR HEMOGLOBIN 28.1 pg (27.0-33.4); MEAN CORPUSCULAR HGB CONC 34.7 g/dL (32.0-36.0); MEAN CORPUSCULAR VOLUME 81 fl (80-97); MONOCYTES % (AUTO) 8.6 % (3-13); PLATELET COUNT 338 10^3/uL (150-450); RED BLOOD COUNT 4.67 10^6/uL (4.35-5.55); SEGMENTED NEUTROPHILS % (AUTO) 53.4 % (42-78); TOTAL CELLS COUNTED % (AUTO) 100 %; WHITE BLOOD COUNT 9.7 10^3/uL (4.0-10.5)
[2019-07-16 11:10] LABS: ALBUMIN 4.2 g/dL (3.5-5.0); ALKALINE PHOSPHATASE 139 U/L (38-126); ANION GAP 14 (5-19); ASPARTATE AMINO TRANSFERASE 30 U/L (17-59); BILIRUBIN,DIRECT 0.3 mg/dL (0.0-0.4); BILIRUBIN,TOTAL 0.8 mg/dL (0.2-1.3); BLOOD UREA NITROGEN 21 mg/dL (7-20); CALCIUM 10.5 mg/dL (8.4-10.2); CARBON DIOXIDE 26 mmol/L (22-30); CHLORIDE 93 mmol/L (98-107); GLUCOSE 90 mg/dL (75-110); POTASSIUM 5.5 mmol/L (3.6-5.0)
[2019-07-16 11:43] LABS: APPEARANCE,URINE CLEAR; BILIRUBIN,URINE NEGATIVE (NEGATIVE); COLOR,URINE YELLOW; GLUCOSE, URINE NEGATIVE (NEGATIVE); KETONES,URINE NEGATIVE (NEGATIVE); LEUKOCYTE ESTERASE,URINE NEGATIVE (NEGATIVE); NITRITE,URINE NEGATIVE (NEGATIVE); PROTEIN,URINE 30 mg/dL (NEGATIVE); URINE SPECIFIC GRAVITY 1.014; UROBILINOGEN,URINE NEGATIVE mg/dL (<2.0)
--- NOTE | 2019-07-16 11:54 | ER Document Report ---
ED General - General Chief Complaint: Hip Pain Stated Complaint: HIP PAIN/LOWER BACK PAIN Time Seen by Provider: 07/16/19 09:50 Primary Care Provider: THOMAS NEGRO MD [ACTIVE STAFF] - Follow up tomorrow (FOLLOW UP TOMORROW WITHOUT FAIL) FABIANA LERMA MD [Primary Care Provider] - Follow up in 3-5 days TRAVEL OUTSIDE OF THE [place] IN LAST 30 DAYS: No - HPI Notes: 53-year-old male to the emergency department with history of stage I left adrenal gland cancer with resulting left adrenalectomy to the emergency department with persistent right flank and lower abdominal pain that has been ongoing for well over a month. He also states that he has been having weight loss. States he lost 5 pounds in the past week. He states that he continues to eat but he cannot seem to keep any weight on him. He states that he has an appointment with Dr. Negro, oncology but it is not till July 31. He admits that he is the sole provider for himself and his and so he has been having difficulty getting to see his oncologist because he needs to work to support his family. He states that he has not had any fevers or chills. He states that he was never on chemotherapy for his left-sided adrenal cancer. He denies any chest pain or shortness of breath. He denies any nausea or vomiting. Does admit to a sensation of early satiation. He smokes. - Related Data Allergies/Adverse Reactions: No Known Allergies Allergy (Verified 07/16/19 09:51) Past Medical History - General Information source: Patient - Social History Smoking Status: Never Smoker Chew tobacco use (# tins/day): No Frequency of alcohol use: None Family History: Reviewed & Not Pertinent Patient has suicidal ideation: No Patient has homicidal ideation: No - Past Medical History Cardiac Medical History: Reports: Hx Hypertension Pulmonary Medical History: Reports: Hx Asthma, Hx COPD Neurological Medical History: Denies: Hx Seizures Endocrine Medical History: Denies: Hx Diabetes Mellitus Type 2, Hx Hypert hyroidism Renal/ Medical History: Denies: Hx End Stage Renal Disease, Hx Peritoneal Dialysis GI Medical History: Denies: Hx Cirrhosis, Hx Gastroesophageal Reflux Disease, Hx Hiatal Hernia Musculoskeletal Medical History: Denies Hx Arthritis, Denies Hx Fibromyalgia, Denies Hx Gout, Reports Hx Musculoskeletal Trauma Psychiatric Medical History: Reports: Hx Bipolar Disorder, Hx Depression Past Surgical History: Reports: Hx Kidney (Renal Surgery) - unilateral adrenalectomy 08/23, Hx Orthopedic Surgery - plate/screws in toe, Other - Left adrenalectomy - Immunizations Hx Diphtheria, Pertussis, Tetanus Vaccination: Yes Review of Systems - Review of Systems Constitutional: Malaise, Weight loss. denies: Chills, Fever EENT: No symptoms reported Cardiovascular: denies: Chest pain, Palpitations, Syncope, Dizziness, Lig htheaded Respiratory: denies: Cough, Short of breath Gastrointestinal: Abdominal pain. denies: Diarrhea, Nausea, Vomiting, Constipation - Last Genitourinary: denies: Burning, Flank pain - BM was yesterday and normal, Hematuria, Incontinence Musculoskeletal: denies: Back pain Skin: No symptoms reported Hematologic/Lymphatic: No symptoms reported Neurological/Psychological: No symptoms reported -: Yes All other systems reviewed and negative Physical Exam - Vital signs Vitals: Temp Pulse Resp BP Pulse Ox 98.5 F 109 H 16 104/59 L 100 07/16/19 09:46 07/16/19 09:46 07/16/19 09:46 07/16/19 09:46 07/16/19 09:46 Interpretation: Normal - General General appearance: Alert Notes: Appears chronically ill. In no acute distress. - HEENT Head: Normocephalic, Atraumatic Eyes: Normal Pupils: PERRL Ears: Normal External canal: Normal Tympanic membrane: Normal Sinus: Normal Nasal: Normal Mouth/Lips: Normal Mucous membranes: Normal Pharynx: Normal Neck: Normal - Respiratory Respiratory status: No respiratory distress Chest status: Nontender. No: Accessory muscle use Breath sounds: Normal. No: Rales, Rhonchi, Stridor, Wheezing Chest palpation: Normal - Cardiovascular Rhythm: Regular Heart sounds: Normal auscultation Murmur: No - Abdominal Inspection: Normal Distension: No distension Bowel sounds: Normal Tenderness: Tender - There is tenderness to palpation to the right upper quadr ant, epigastrium, right lower quadrant, suprapubic abdomen. There is no rebound or guarding. There is no CVA tenderness.. No: Guarding, Rebound Organomegaly: No organomegaly - Back Back: Normal, Nontender. No: CVA tenderness - Extremities General upper extremity: Normal inspection, Nontender, Normal color, Normal ROM, Normal temperature General lower extremity: Normal inspection, Nontender, Normal color, Normal ROM, Normal temperature, Normal weight bearing - Neurological Neuro grossly intact: Yes Cognition: Normal Orientation: AAOx4 [place] Coma Scale Eye Opening: Spontaneous [place] Coma Scale Verbal: Oriented [place] Coma Scale Motor: Obeys Commands Cedric Coma Scale Total: 15 Speech: Normal Motor strength normal: LUE, RUE, LLE, RLE Sensory: Normal - Psychological Associated symptoms: Normal affect, Normal mood - Skin Skin Temperature: Warm Skin Moisture: Dry Skin Color: Normal Course - Re-evaluation Re-evalutation: 07/16/[address] scan today. This would be the patient's third CT scan here since May 2019. His last CT scan was on 06 July and illustrated that there was increasing abdominal lymphadenopathy. Today the lymphadenopathy still exists and there is heightened suspicion for possible malignancy here especially given patient's history of adrenal cancer and also his weight loss. I spoke with Dr. Negro and he agrees that his CT and his symptoms are concerning. He would like to see the patient tomorrow in his office. He would like for the patient to call and they will make room for the patient tomorrow to be seen. I have advised that I will send the patient home with some pain medicine and Dr. Negro agrees. Discussed the plan with the patient and he agrees as well. Urged him to see oncology without fail for further evaluation for this lymphadenopathy as it is suspicious for malignancy. He voices understanding and states he will be seen tomorrow. - Vital Signs Vital signs: Temp Pulse Resp BP Pulse Ox 98.2 F 95 16 103/57 L 100 07/16/19 13:43 07/16/19 13:43 07/16/19 13:43 07/16/19 13:43 07/16/19 13:43 - Laboratory Result Diagrams: 07/16/19 10:12 07/16/19 10:12 Laboratory results interpreted by me: 07/16/19 07/16/19 07/16/19 10:12 10:12 10:15 Hgb 13.1 L Hct 37.7 L RDW 16.0 H Eos % (Auto) 15.7 H Baso % (Auto) 2.5 H Absolute Eos (auto) 1.5 H Sodium 132.5 L Potassium 5.5 H Chloride 93 L BUN 21 H Creatinine 1.71 H Est GFR ( Amer) 51 L Est GFR (MDRD) Non-Af 42 L Calcium 10.5 H Alkaline Phosphatase 139 H Urine Protein 30 H Discharge - Discharge Clinical Impression: Lymphadenopathy, abdominal, Weight loss, Adrenal mass, History of malignant neoplasm of adrenal gland Abdominal pain Qualifiers: Abdominal location: right lower quadrant Qualified Code(s): R10.31 - Right lower quadrant pain Condition: Stable Disposition: HOME, SELF-CARE Additional Instructions: FOLLOW UP WITH DR. NEGRO WITHOUT FAIL TOMORROW. PLEASE CALL THE OFFICE TODAY FOR AN APPOINTMENT TIME. TAKE PAIN MEDICINE PRESCRIBED. YOU HAVE CONCERNING ABDOMINAL LYMPH NODES THAT ARE GETTING LARGER IN YOUR ABDOMEN. DR. NEGRO WILL SEE YOU TOMORROW. FAILURE TO FOLLOW UP COULD RESULT IN WORSENING SYMPTOMS. Prescriptions: Oxycodone HCl/Acetaminophen [Percocet 5-325 mg Tablet] 1 tab PO Q4H PRN #15 tablet PRN Reason: Forms: Return to Work Referrals: FABIANA LERMA MD [Primary Care Provider] - Follow up in 3-5 days THOMAS NEGRO MD [ACTIVE STAFF] - Follow up tomorrow (FOLLOW UP TOMORROW WITHOUT FAIL)
--- NOTE | 2019-07-16 12:08 | RADIOLOGY REPORT (SQ) ---
EXAM DESCRIPTION: CT ABD/PELVIS WITH IV ONLY COMPLETED DATE/TIME: 07/16/2019 11:48 am REASON FOR STUDY: R flank pain, hx of adrenal masses COMPARISON: 07/06/2019 TECHNIQUE: CT scan of the abdomen and pelvis performed using helical scanning technique with dynamic intravenous contrast injection. No oral contrast. Images reviewed with lung, soft tissue, and bone windows. Reconstructed coronal and sagittal MPR images reviewed. Delayed images for evaluation of the urinary system also acquired. All images stored on PACS. All CT scanners at this facility use dose modulation, iterative reconstruction, and/or weight based d osing when appropriate to reduce radiation dose to as low as reasonably achievable (ALARA). [facility]: Dose Right [facility]: CareDose [facility]: Dose Right [facility]: Teradose 4D [facility]: WebLinc CONTRAST TYPE AND DOSE: contrast/concentration: Isovue 300.00 mg/ml; Total Contrast Delivered: 54.0 ml; Total Saline Delivered: 62.0 ml RENAL FUNCTION: GFR > 60. RADIATION DOSE: CT Rad equipment meets quality standard of care and radiation dose reduction techniq ues were employed. CTDIvol: 4.9 - 5.3 mGy. DLP: 530 mGy-cm.. LIMITATIONS: None. FINDINGS: LOWER CHEST: No significant findings. No nodules or infiltrates. LIVER: Normal size. No masses. No dilated ducts. SPLEEN: Bulky splenomegaly, as seen on prior examination. No focal lesions. PANCREAS: No masses. No significant calcifications. No adjacent inflammation or peripancreatic fluid collections. Pancreatic duct not dilated. GALLBLADDER: No identified stones by CT criteria. No inflammatory changes to suggest cholecystitis. ADRENAL GLANDS: Grossly fat containing nodule of the right adrenal body. Status post left adrenalect umair. RIGHT KIDNEY AND URETER: No solid masses. No significant calcifications. No hydronephrosis or hyd roureter. LEFT KIDNEY AND URETER: No solid masses. No significant calcifications. No hydronephrosis or hydr oureter. AORTA AND VESSELS: No aneurysm. No dissection. Renal arteries, SMA, celiac without stenosis. RETROPERITONEUM: Bulky retroperitoneal, portacaval, iliac, and inguinal lymph nodes as seen on prior CT. BOWEL AND PERITONEAL CAVITY: No masses or inflammatory changes. No free fluid or peritoneal masses. APPENDIX: Not clearly visualized. No inflammatory findings in the right lower quadrant. PELVIS: No mass. No free fluid. Normal bladder. ABDOMINAL WALL: No masses. No hernias. BONES: No significant or acute findings. OTHER: No other significant finding. IMPRESSION: 1. No acute CT findings of the abdomen or pelvis to explain right lower quadrant abdomi nal pain. The appendix is not clearly visualized although there are no secondary findings of appendi citis in the right lower quadrant. No evidence of urinary tract calculus or hydronephrosis. 2. Redemonstrated bulky abdominal lymphadenopathy and splenomegaly, concerning for malignancy such a s lymphoma. TECHNICAL DOCUMENTATION: JOB ID: [id number] Quality ID # [id number]: Final reports with documentation of one or more dose reduction techniques (e.g., Au tomated exposure control, adjustment of the mA and/or kV according to patient size, use of iterative reconstruction technique) 2010 [employer]- All Rights Reserved Reading location - IP/workstation name: [email or web address]
[2019-07-16] MEDS ORDERED: MORPHINE SULFATE 10 MG/ML INJ IV ONE (12:43)
[2019-07-16] MEDS ORDERED: ONDANSETRON HCL INJ/PF 4 MG/2 ML SDV IV ONE (12:43)
[2019-07-16] MEDS ORDERED: NORMAL SALINE 500 ML IV ONE (12:44)
[2019-07-16 13:45] VITALS: BP 103/57
== END 2019-07-16 14:10 | disposition home or self-care (01) ==
LOC: ER 09:09
DX: R10.31 Right lower quadrant pain (principal); R63.4 Abnormal weight loss; E27.9 Disorder of adrenal gland, unspecified; R53.81 Other malaise; R10.811 Right upper quadrant abdominal tenderness; R10.816 Epigastric abdominal tenderness; R10.813 Right lower quadrant abdominal tenderness; Z85.89 Personal history of malignant neoplasm of other organs and systems; R59.1 Generalized enlarged lymph nodes; E89.6 Postprocedural adrenocortical (-medullary) hypofunction; I10 Essential (primary) hypertension; J44.9 Chronic obstructive pulmonary disease, unspecified
CPT/HCPCS: 36415; 83690; 85025; 80053; 81001; 74177; J2270; J2405; J7040; 96361; 96374; 96375; 99284

== ENCOUNTER 2019-07-23 22:18 | Emergency (ER) | payer OTHER ==
[2019-07-24] MEDS ORDERED: MORPHINE SULFATE 10 MG/ML INJ IV ONE (02:56)
--- NOTE | 2019-07-24 03:35 | ER Document Report ---
ED General - General Chief Complaint: Back Pain Stated Complaint: HIP PAIN/BACK PAIN Time Seen by Provider: 07/24/19 02:38 Primary Care Provider: FABIANA RAYMOND MD [Primary Care Provider] - Follow up as needed Notes: 53-year-old male with history of adrenal cancer presents with continued low back pain. Patient is currently being worked up by Dr. Yoo for possible spreading of cancer. Patient has been in for a PET scan on 07/28 and a follow- up appointment with Dr. Yoo on 07/31. Patient states he has been taking oxycodone for his pain without any relief. Patient states when he was given morphine here in the ER that seemed to help. Patient is also requesting his labs including CBC and CMP be drawn. Patient denies any fever, changes in pain except not being improved, chest pain, shortness of breath, or any pain anywhere else. TRAVEL OUTSIDE OF THE [place] IN LAST 30 DAYS: No - Related Data Allergies/Adverse Reactions: No Known Allergies Allergy (Verified 07/16/19 09:51) Home Medications: percocet 5/325 prn pain Past Medical History - Social History Smoking Status: Never Smoker Family History: Reviewed & Not Pertinent Patient has suicidal ideation: No Patient has homicidal ideation: No - Past Medical History Cardiac Medical History: Reports: Hx Hypertension Pulmonary Medical History: Reports: Hx Asthma, Hx COPD Neurological Medical History: Denies: Hx Seizures Endocrine Medical History: Denies: Hx Diabetes Mellitus Type 2, Hx Hypert hyroidism Renal/ Medical History: Denies: Hx End Stage Renal Disease, Hx Peritoneal Dialysis GI Medical History: Denies: Hx Cirrhosis, Hx Gastroesophageal Reflux Disease, Hx Hiatal Hernia Musculoskeletal Medical History: Denies Hx Arthritis, Denies Hx Fibromyalgia, Denies Hx Gout, Reports Hx Musculoskeletal Trauma Psychiatric Medical History: Reports: Hx Bipolar Disorder, Hx Depression Past Surgical History: Reports: Hx Kidney (Renal Surgery) - unilateral adrenalectomy 08/23, Hx Orthopedic Surgery - plate/screws in toe, Other - Left adrenalectomy - Immunizations Hx Diphtheria, Pertussis, Tetanus Vaccination: Yes Review of Systems - Review of Systems Notes: Constitutional: Negative for fever. HENT: Negative for sore throat. Eyes: Negative for visual changes. Cardiovascular: Negative for chest pain. Respiratory: Negative for shortness of breath. Gastrointestinal: Negative for abdominal pain, vomiting or diarrhea. Genitourinary: Negative for dysuria. Musculoskeletal: Positive for back pain. Skin: Negative for rash. Neurological: Negative for headaches, weakness or numbness. 10 point ROS negative except as marked above and in HPI. Physical Exam - Vital signs Vitals: Temp Pulse Resp BP Pulse Ox 98.5 F 107 H 20 95/49 L 100 07/23/19 22:34 07/23/19 22:34 07/23/19 22:34 07/23/19 22:34 07/23/19 22:34 - Notes Notes: GENERAL: Patient appears chronically ill. HEAD: Atraumatic, normocephalic. EYES: Extraocular movements intact, sclera anicteric, conjunctiva are normal. NECK: Normal range of motion, supple without lymphadenopathy or JVD. LUNGS: Breath sounds clear to auscultation bilaterally and equal. No wheezes rales or rhonchi. HEART: Regular rate and rhythm without murmurs, rubs or gallops. ABDOMEN: Soft, nontender. No guarding, no rebound. No masses appreciated. EXTREMITIES: Normal range of motion, no pitting or edema. No clubbing or cyanosis. No spinal tenderness. NEUROLOGICAL: Cranial nerves II through XII grossly intact. Normal speech, normal gait. PSYCH: Normal mood, normal affect. SKIN: Warm, Dry, normal turgor, no rashes or lesions noted. Course - Re-evaluation Re-evalutation: 07/24/19 53-year-old male presents for continued low back pain that is not being improved by his home oxycodone. Patient is currently being worked up by his oncologist, Dr. Yoo, for spreading of malignancy. Patient is scheduled for PET scan on 07/28 and has a follow-up appointment with Dr. Yoo on 07/31. Patient is also requesting labs be drawn to check his sodium level and blood counts. Patient has no spinal tenderness or abdomen is soft nontender. PE is otherwise unremarkable. Patient has had 3 CTs since May of this year with the last one that was concerning for spreading of malignancy which prompted him to follow-up with Dr. Yoo. 07/24/19 05:10 sodium is 124. 1 L IV bolus ordered earlier due to hypotension. Pt has no altered mental status, no confusion, no seizures. Review of previous records show that pt has Na levels this low previously. 07/24/19 06:[address] Dutton who recommended 2 L fluid r estriction daily and to encourage pt to keep his appointment with Dr. Yoo. Pt also complaining of scabies infection for 1 month. Pt did not complain of this until this provider went into room to discuss discharge with pt. Pt states he has tried lotion in past with relief for a few days but it keeps recurring. [employer] consulted which recommended topical permethrin and oral ivermectin. Will prescribe this with close follow up with PCP. Pt instructed to take OTC antihistamine as Atarax has not worked for itching. Pt also will be prescribed oxycodone and muscle relaxer with sedation warning. Pt voices understanding and agrees iw plan of care. - Vital Signs Vital signs: Temp Pulse Resp BP Pulse Ox 97.2 F 105 H 16 116/57 L 100 07/24/19 04:38 07/24/19 04:38 07/24/19 04:38 07/24/19 04:38 07/24/19 04:38 - Laboratory Result Diagrams: 07/24/19 04:00 07/24/19 04:00 Laboratory results interpreted by me: 07/24/19 07/24/19 04:00 04:00 RBC 4.25 L Hgb 11.7 L Hct 33.0 L MCV 78 L RDW 16.3 H Eos % (Auto) 17.1 H Baso % (Auto) 2.4 H Absolute Eos (auto) 1.2 H Sodium 124.8 L Potassium 5.3 H Chloride 91 L Carbon Dioxide 17 L BUN 41 H Creatinine 1.35 H Est GFR (MDRD) Non-Af 55 L Calcium 10.3 H Alkaline Phosphatase 219 H Total Protein 8.3 H Discharge - Discharge Clinical Impression: Hyponatremia, Scabies Back pain Qualifiers: Back pain location: low back pain Chronicity: chronic Back pain laterality: bilateral Sciatica presence: unspecified whether sciatica present Qualified Code(s): M54.5 - Low back pain; G89.29 - Other chronic pain Condition: Stable Disposition: HOME, SELF-CARE Instructions: Low Back Pain ([facility]) Additional Instructions: Please take medications as prescribed. Do not drink or drive while taking oxycodone and Flexeril as they may make you drowsy. For permethrin please massage thoroughly into the skin from the neck to the soles of the feet including areas under the fingernails and toenails and wash by either showering or bathing after 8 to 14 hours. May repeat in 1 week if no relief. For ivermectin please take single dose and follow-up with a repeat dose after 1 to 2 weeks if no relief. Please keep your appointment with Dr. Yoo on the . Please make sure you go to get your PET scan on the as scheduled. Please follow-up with Dr. Raymond in 3 to 5 days. Return to ER immediately if you start having any worsening symptoms, including seizure, altered mental status, confusion, chest pain, worsening back pain, fever, urinary symptoms, difficulty with defecating, numbness, or any other symptoms that are concerning to you. Prescriptions: Permethrin [Acticin 5% Cream 60 gm] 60 gm TP ONCE PRN #60 cream.gm. PRN Reason: Cyclobenzaprine HCl [Flexeril 10 mg Tablet] 10 mg PO TIDP PRN #15 tab PRN Reason: Oxycodone HCl [Oxycodone HCl 10 MG Tablet] 1 - 2 tab PO Q6H PRN #15 tablet PRN Reason: PAIN Ivermectin [Stromectol 3 mg Tablet] 4 mcg PO ONCE PRN #2 tablet PRN Reason: Referrals: FABIANA RAYMOND MD [Primary Care Provider] - Follow up in 3-5 days THOMAS YOO MD [ACTIVE STAFF] - 07/31/19
[2019-07-24 04:17] LABS: ABSOLUTE BASOPHILS # (AUTO) 0.2 10^3/uL (0.0-0.2); ABSOLUTE EOSINOPHILS # (AUTO) 1.2 10^3/uL (0.0-0.6); ABSOLUTE LYMPHOCYTES (AUTO) 1.3 10^3/uL (0.5-4.7); ABSOLUTE MONOCYTES (AUTO) 0.7 10^3/uL (0.1-1.4); ABSOLUTE NEUT (AUTO) 3.5 10^3/uL (1.7-8.2); BASOPHILS % (AUTO) 2.4 % (0-2); EOSINOPHILS % (AUTO) 17.1 % (0-6); HEMOGLOBIN 11.7 g/dL (13.5-17.0); LYMPHOCYTES % (AUTO) 18.9 % (13-45); MEAN CORPUSCULAR HEMOGLOBIN 27.6 pg (27.0-33.4); MEAN CORPUSCULAR HGB CONC 35.6 g/dL (32.0-36.0); MEAN CORPUSCULAR VOLUME 78 fl (80-97); MONOCYTES % (AUTO) 10.9 % (3-13); PLATELET COUNT 214 10^3/uL (150-450); RED BLOOD COUNT 4.25 10^6/uL (4.35-5.55); RED CELL DISTRIBUTION WIDTH 16.3 % (11.5-14.0); SEGMENTED NEUTROPHILS % (AUTO) 50.7 % (42-78); TOTAL CELLS COUNTED % (AUTO) 100 %; WHITE BLOOD COUNT 6.8 10^3/uL (4.0-10.5)
[2019-07-24] MEDS ORDERED: NORMAL SALINE 1000 ML 1,000 ML IV ONE (04:18)
[2019-07-24 04:40] LABS: ALBUMIN 4.3 g/dL (3.5-5.0); ALKALINE PHOSPHATASE 219 U/L (38-126); ANION GAP 17 (5-19); ASPARTATE AMINO TRANSFERASE 40 U/L (17-59); BILIRUBIN,DIRECT 0.4 mg/dL (0.0-0.4); BILIRUBIN,TOTAL 1.1 mg/dL (0.2-1.3); BLOOD UREA NITROGEN 41 mg/dL (7-20); CALCIUM 10.3 mg/dL (8.4-10.2); CARBON DIOXIDE 17 mmol/L (22-30); CHLORIDE 91 mmol/L (98-107); GLUCOSE 93 mg/dL (75-110); POTASSIUM 5.3 mmol/L (3.6-5.0); TOTAL PROTEIN 8.3 g/dL (6.3-8.2)
[2019-07-24 07:49] VITALS: BP 109/61
== END 2019-07-24 07:20 | disposition home or self-care (01) ==
LOC: ER 22:18
DX: E87.1 Hypo-osmolality and hyponatremia (principal); B86 Scabies; M54.5 Low back pain; I10 Essential (primary) hypertension
CPT/HCPCS: 99283; 96361; 96374; 36415; 85025; 80053; J2270; J7030

== ENCOUNTER → 2019-07-28 | Outpatient (CLI) | payer OTHER ==
--- NOTE | 2019-07-30 09:34 | RADIOLOGY REPORT (SQ) ---
EXAM DESCRIPTION: PET CT SKULL/THIGH COMPLETED DATE/TIME: 07/28/2019 5:31 pm REASON FOR STUDY: C74.11 MALIGNANT NEOPLASM OF MEDULLA OF RIGHT ADRENAL GLAND C74.11 MALIGNANT NEOP LASM OF MEDULLA OF RIGHT ADRENAL GLAND COMPARISON: 02/15/2019 RADIONUCLIDE AND DOSE: 10.41 mCi F18 FDG The route of agent administration: Intravenous FASTING BLOOD SUGAR: 175 mg/dl CONTRAST TYPE AND DOSE: No CT contrast given. TECHNIQUE: Blood glucose level was verified. Above dose of FDG was injected intravenously. 2-D seg mented attenuation correction images were obtained from the base of the skull to the midthighs. Nonc ontrast CT images were obtained for attenuation correction and fusion with emission images. CT image s were performed without oral or intravenous contrast and are not sensitive for parenchymal lesions. A series of overlapping emission PET images were obtained. Images reviewed and manipulated at [facility] work station by the radiologist. Images stored on PACS. LIMITATIONS: None. FINDINGS: HEAD AND NECK: There is increased hypermetabolic submandibular and bilateral cervical erik opathy. For reference largest left submandibular lymph node measures 16 mm in short axis (series 3, image 40) (max SUV 5.9). Largest right level 2 node measures 17 mm in short axis (series 3, image 40 ) (max SUV 4.1). There is additional hypermetabolic supraclavicular adenopathy. CHEST: Extensive hypermetabolic mediastinal, hilar and bilateral axillary adenopathy increased from p rior PET. For reference there is a subcarinal samantha conglomerate measuring approximately 3.5 x 2.7 c m (series 3, image 82) (max SUV 11.6). Largest right axillary samantha conglomerate measures approximat ankur 4.9 x 2.7 cm (series 3, image 64) (max SUV 6.4). ABDOMEN AND PELVIS: Background hepatic activity max SUV 2.6.Splenomegaly measuring up to 14.7 cm with diffuse increased FDG uptake (max SUV 4.9). Enlarged lymph nodes within the rox hepatis with incr eased FDG uptake. For reference there is a rox hepatic node measuring 18 mm in short axis (series 3, image 124) (max SUV 4.5). There additional hypermetabolic enlarged retroperitoneal, iliac and pel jennifer sidewall lymph nodes. Largest left iliac chain node measures 3.1 cm in short axis (series 3, michael ge 192) (max SUV 7.0). Bilateral enlarged inguinal lymph nodes with increased FDG uptake (max SUV 10 .8). These are increased from prior PET-CT but similar to recent CT. Increased FDG uptake within th e right adrenal gland with unchanged fatty nodule (max SUV 7.5). PROXIMAL LOWER EXTREMITIES: Inguinal adenopathy as above. BONES: Heterogeneous marrow activity within the proximal humerus and femurs bilaterally without discr ete focus. ADDITIONAL CT FINDINGS: Extensive adenopathy as above. No evidence of acute intrathoracic process. Scattered coronary atherosclerosis. Splenomegaly. Unchanged fat containing right adrenal lesion. S tatus post left adrenalectomy. OTHER: No other significant findings. IMPRESSION: 1. Extensive hypermetabolic adenopathy involving the cervical, supraclavicular, mediast inal, axillary, retroperitoneal, pelvic and inguinal lymph nodes as detailed above and most compatibl e with malignancy/lymphoproliferative disorder such as lymphoma. 2. Hypermetabolic splenomegaly (max SUV 4.9) also suspicious for lymphoma. 3. Hypermetabolic right adrenal gland with unchanged appearance (max SUV 7.5). Status post left adr enalectomy. TECHNICAL DOCUMENTATION: JOB ID: [id number] [employer]- All Rights Reserved Reading location - IP/workstation name: [email or web address]
== END ==
LOC: RAD 07:51
PROVIDERS: ATTEND Physician Assistant Medical
DX: C00-D49 Neoplasms (principal); R59.1 Generalized enlarged lymph nodes
CPT/HCPCS: 78815; A9552

== ENCOUNTER 2019-07-30 05:17 | Emergency (ER) | payer OTHER ==
--- NOTE | 2019-07-30 10:18 | ER Document Report ---
HPI - HPI Time Seen by Provider: 07/30/19 09:39 Pain Level: 4 Notes: 53-year-old male patient who is well-known to our facility presenting with chief complaint of allover itching, patient has been diagnosed with scabies multiple times. He states the permethrin cream he was prescribed a few weeks ago helped significantly although he thinks he needs a refill. Patient is also complaining of left shoulder pain. He states he has chronic pain in this area. He states it is usually worse with cold weather. Patient denies any new injury or trauma. - REPRODUCTIVE Reproductive: DENIES: : Past Medical History - General Information source: Patient - Social History Smoking Status: Never Smoker Family History: Reviewed & Not Pertinent Patient has suicidal ideation: No Patient has homicidal ideation: No - Past Medical History Cardiac Medical History: Reports: Hx Hypertension Pulmonary Medical History: Reports: Hx Asthma, Hx COPD Neurological Medical History: Denies: Hx Seizures Endocrine Medical History: Denies: Hx Diabetes Mellitus Type 2, Hx Hyperthyroidism Renal/ Medical History: Denies: Hx End Stage Renal Disease, Hx Peritoneal Dialysis GI Medical History: Denies: Hx Cirrhosis, Hx Gastroesophageal Reflux Disease, Hx Hiatal Hernia Musculoskeletal Medical History: Denies Hx Arthritis, Denies Hx Fibromyalgia, Denies Hx Gout, Reports Hx Musculoskeletal Trauma Psychiatric Medical History: Reports: Hx Bipolar Disorder, Hx Depression Past Surgical History: Reports: Hx Kidney (Renal Surgery) - unilateral adrenalectomy 08/23, Hx Orthopedic Surgery - plate/screws in toe, Other - Left adrenalectomy - Immunizations Hx Diphtheria, Pertussis, Tetanus Vaccination: Yes Vertical Provider Document - CONSTITUTIONAL Notes: PHYSICAL EXAMINATION: GENERAL: Well-appearing, well-nourished and in no acute distress. HEAD: Atraumatic, normocephalic. EYES: Pupils equal round extraocular movements intact, conjunctiva are normal. ENT: Nares patent NECK: Normal range of motion LUNGS: No respiratory distress Musculoskeletal: Limited range of motion to left shoulder, no crepitus or deformity on palpation. Strong pulse to the distal radius. Cap refill less than 3 seconds. NEUROLOGICAL: Normal speech, normal gait. PSYCH: Normal mood, normal affect. SKIN: Scattered crusted rash noted to bilateral upper extremities consistent with scabies. - INFECTION CONTROL TRAVEL OUTSIDE OF THE [place] IN LAST 30 DAYS: No Course - Re-evaluation Re-evalutation: Patient with chronic shoulder pain, no new injury, no indication for further work-up at this time. No indication for imaging. Patient does have pre- diagnosed scabies. I will provide additional medications for this. Patient will also be started on a prednisone course. Patient encouraged to follow-up with primary care and/or orthopedics for further management of his chronic pain issues. Patient verbalizes understanding agreement this plan. At time of discharge patient stated to the nurse that I told him I would give hi m Percocet. This is not true I in fact I told the patient that we would not be prescribing any further narcotic pain medication for his chronic pain. Patient then verbalized understanding and agreement. - Vital Signs Vital signs: Temp Pulse Resp BP Pulse Ox 97.7 F 124 H 20 100/54 L 07/30/19 05:34 07/30/19 05:34 07/30/19 05:34 07/30/19 05:34 Discharge - Discharge Clinical Impression: Arthritis, Scabies Condition: Stable Disposition: HOME, SELF-CARE Additional Instructions: You were seen in the emergency department with complaints of elbow pain and shoulder pain. Since there was no direct trauma we will hold off on imaging you at this time. Please keep the appointment you have scheduled tomorrow with Dr. Shultz to review your PET scan. Please take medications as prescribed. Return to the ED with any new or worsening symptoms. Prescriptions: Permethrin [Acticin 5% Cream 60 gm] 2 applic TP NOW #2 tube Prednisone 10 mg PO ASDIR PRN #21 tablet PRN Reason: Referrals: FABIANA LERMA MD [Primary Care Provider] - Follow up as needed
[2019-07-30 10:41] VITALS: BP 110/70
== END 2019-07-30 10:46 | disposition home or self-care (01) ==
LOC: ER 05:17
DX: B86 Scabies (principal); M19.012 Primary osteoarthritis, left shoulder; I10 Essential (primary) hypertension; J44.9 Chronic obstructive pulmonary disease, unspecified
CPT/HCPCS: 99283

== ENCOUNTER → 2019-08-12 | Outpatient (CLI) | payer OTHER ==
--- NOTE | 2019-08-14 11:19 | Pulmonary Function Test ---
Pulmonary Function Test Date of Procedure:: 08/12/19 INDICATION:: Dyspnea Referring Provider: Soni Garcias MD Recharger: Julieta Almaraz, [employer] - Report Spirometry: Spirometry: pre-FVC: 3.31 L 134% pre-FEV:1 2.27 L 111% pre-FEV1/FVC %: 69 predicted: 83 [id number]%: 1.59 L 68% Lung Volume: Total lung capacity: 6.42 L 147% Vital capacity: 3.32 L 135% Inspiratory capacity: 1.67 L FRC N2: 4.76 L 175% ERV: 0.47 L RV: 3.10 L 198% RV/TLC %:: 48 predicted 35 Diffusion Capactity: DLCO: 14.8 90% DLCO/VA: 2.97 72% Impression: Mild obstructive ventilatory defect. No restrictive ventilatory defect. Mild hyperinflation and moderate air trapping. Normal diffusion capacity
== END ==
LOC: RT 09:09
PROVIDERS: ATTEND Surgery
DX: J44.9 Chronic obstructive pulmonary disease, unspecified (principal); R06.00 Dyspnea, unspecified; Z87.891 Personal history of nicotine dependence; I25.10 Atherosclerotic heart disease of native coronary artery without angina pectoris
CPT/HCPCS: 94010; 94727; 94729

== ENCOUNTER → 2019-08-24 | Outpatient (CLI) | payer SELFPAY | LOC: OD 10:54 | PROVIDERS: ATTEND Internal Medicine | DX: Z11.4 Encounter for screening for human immunodeficiency virus [HIV] (principal) | CPT/HCPCS: 36415 ==

== ENCOUNTER 2019-08-31 19:07 | Emergency (ER) | payer SELFPAY ==
--- NOTE | 2019-08-31 21:29 | ER Document Report ---
ED Medical Screen (RME) - General Chief Complaint: Back Pain Stated Complaint: BACK PAIN Time Seen by Provider: 08/31/19 21:20 Primary Care Provider: THOMAS NEGRO MD [Primary Care Provider] - Follow up as needed TRAVEL OUTSIDE OF THE [place] IN LAST 30 DAYS: No - HPI Notes: 08/31/19 21:27 53-year-old male to the emergency department with complaints of right-sided back pain that has been getting worse since Saturday with associated cough and shortness of breath. He is currently under oncological care for adrenal cancer on the right side. He is scheduled to get the tumor that is they are excised and divided but he is not currently on any chemotherapy. He is followed by Dr. Negro, and Dr. Negro has the patient on oxycodone. Patient states that he has been taking this medicine but it does not touch the pain. He admits to night sweats and fevers and chills at night. He admits to weight loss. Denies any nausea or vomiting. He smokes. I performed a brief medical screening exam on this patient. And determined that he will need further evaluation by main side provider. I have ordered initial labs as well as imaging studies to expedite his care. I have ordered a CTA of the chest since he does have active malignancy and he is tachycardic and complaining of shortness of breath. - Related Data Allergies/Adverse Reactions: No Known Allergies Allergy (Verified 07/16/19 09:51) Past Medical History - Past Medical History Cardiac Medical History: Reports: Hx Hypertension Pulmonary Medical History: Reports: Hx Asthma, Hx COPD Neurological Medical History: Denies: Hx Seizures Endocrine Medical History: Denies: Hx Diabetes Mellitus Type 2, Hx Hyperthyroidism Renal/ Medical History: Denies: Hx End Stage Renal Disease, Hx Peritoneal Dialysis GI Medical History: Denies: Hx Cirrhosis, Hx Gastroesophageal Reflux Disease, Hx Hiatal Hernia Musculoskeltal Medical History: Denies Hx Arthritis, Denies Hx Fibromyalgia, Denies Hx Gout, Reports Hx Musculoskeletal Trauma Psychiatric Medical History: Reports: Hx Bipolar Disorder, Hx Depression Past Surgical History: Reports: Hx Kidney (Renal Surgery) - unilateral adrenalectomy 08/23, Hx Orthopedic Surgery - plate/screws in toe, Other - Left adrenalectomy - Immunizations Hx Diphtheria, Pertussis, Tetanus Vaccination: Yes Physical Exam - Vital signs Vitals: Temp Pulse Resp BP Pulse Ox 98.2 F 111 H 16 101/56 L 100 08/31/19 19:12 08/31/19 19:12 08/31/19 19:12 08/31/19 19:12 08/31/19 19:12 Course - Vital Signs Vital signs: Temp Pulse Resp BP Pulse Ox 98.2 F 111 H 16 101/56 L 100 08/31/19 19:12 08/31/19 19:12 08/31/19 19:12 08/31/19 19:12 08/31/19 19:12 Doctor's Discharge - Discharge Referrals: THOMAS NEGRO MD [Primary Care Provider] - Follow up as needed
--- NOTE | 2019-08-31 22:23 | ER Document Report ---
ED General - General Chief Complaint: Abdominal Pain Stated Complaint: BACK PAIN Time Seen by Provider: 08/31/19 21:20 Primary Care Provider: THOMAS NEGRO MD [Primary Care Provider] - Follow up as needed Mode of Arrival: Ambulatory Information source: Patient Notes: Patient reports that he is a chronic pain patient with pain in his back and that he is run out of his narcotic medication. Patient states he cannot receive any further narcotic medications until he has his surgery in a few weeks and he has therefore come to the emergency department because of his chronic right-sided back pain. Patient reports that he had adrenal cancer that was resected and some years past. He reports now that he has recurrence of adrenal cancer in his right adrenal gland at this time. Patient denies urinary symptoms or any other kind of obstruction of GI or systems. Denies any fever chills nausea and vomiting. Patient states he has a chronic cough and sometimes has shortness of breath. Patient states he has no chest pain. And does admit that he smokes cigarettes at times. TRAVEL OUTSIDE OF THE [place] IN LAST 30 DAYS: No - HPI Onset: Other - Chronic condition chronic back pain on pain management narcotics oxycodone or/OxyContin Onset/Duration: Gradual, Constant Quality of pain: Achy Severity: Severe Pain Level: 5 Associated symptoms: Other - Chronic pain Relieved by: Other - No relief other than taking narcotic pain medication - Related Data Allergies/Adverse Reactions: No Known Allergies Allergy (Verified 07/16/19 09:51) Home Medications: hydroxyzine 25 mg tid prn. mg q12h Past Medical History - Social History Smoking Status: Never Smoker Family History: Reviewed & Not Pertinent Patient has suicidal ideation: No Patient has homicidal ideation: No - Past Medical History Cardiac Medical History: Reports: Hx Hypertension Pulmonary Medical History: Reports: Hx Asthma, Hx COPD Neurological Medical History: Denies: Hx Seizures Endocrine Medical History: Denies: Hx Diabetes Mellitus Type 2, Hx Hyperthyroidism Renal/ Medical History: Denies: Hx End Stage Renal Disease, Hx Peritoneal Dialysis GI Medical History: Denies: Hx Cirrhosis, Hx Gastroesophageal Reflux Disease, Hx Hiatal Hernia Musculoskeletal Medical History: Denies Hx Arthritis, Denies Hx Fibromyalgia, Denies Hx Gout, Reports Hx Musculoskeletal Trauma Psychiatric Medical History: Reports: Hx Bipolar Disorder, Hx Depression Past Surgical History: Reports: Hx Kidney (Renal Surgery) - unilateral adr enalectomy 08/23, Hx Orthopedic Surgery - plate/screws in toe, Other - Left adrenalectomy - Immunizations Hx Diphtheria, Pertussis, Tetanus Vaccination: Yes Review of Systems - Review of Systems Constitutional: No symptoms reported EENT: No symptoms reported Cardiovascular: No symptoms reported Respiratory: Cough Gastrointestinal: No symptoms reported Genitourinary: No symptoms reported Male Genitourinary: No symptoms reported Musculoskeletal: Other - Chronic back pain Skin: No symptoms reported Hematologic/Lymphatic: No symptoms reported -: Yes All other systems reviewed and negative Physical Exam - Vital signs Vitals: Temp Pulse Resp BP Pulse Ox 98.2 F 111 H 16 101/56 L 100 08/31/19 19:12 08/31/19 19:12 08/31/19 19:12 08/31/19 19:12 08/31/19 19:12 Interpretation: Normal - General General appearance: Appears well, Alert - HEENT Head: Normocephalic, Atraumatic Eyes: Normal Pupils: PERRL - Respiratory Respiratory status: No respiratory distress Chest status: Nontender Breath sounds: Normal Chest palpation: Normal - Cardiovascular Rhythm: Regular Heart sounds: Normal auscultation Murmur: No - Abdominal Inspection: Normal Distension: No distension Bowel sounds: Normal Tenderness: Nontender Organomegaly: No organomegaly - Back Back: Normal, Nontender - Extremities General upper extremity: Normal inspection, Nontender, Normal color, Normal ROM, Normal temperature General lower extremity: Normal inspection, Nontender, Normal color, Normal ROM, Normal temperature, Normal weight bearing. No: Emi's sign - Neurological Neuro grossly intact: Yes Cognition: Normal Orientation: AAOx4 Cedric Coma Scale Eye Opening: Spontaneous [place] Coma Scale Verbal: Oriented Cedric Coma Scale Motor: Obeys Commands [place] Coma Scale Total: 15 Speech: Normal Motor strength normal: LUE, RUE, LLE, RLE Sensory: Normal - Psychological Associated symptoms: Normal affect, Normal mood - Skin Skin Temperature: Warm Skin Moisture: Dry Skin Color: Normal Course - Re-evaluation Re-evalutation: 08/31/19 23:47 I explained the patient that he could not receive any narcotic prescription from the emergency department for his chronic pain. Patient understood this and stated he was is happy to be able to come and get some pain relief with the pill tonight. Patient is to follow-up with his primary care physician or his pain clinic doctor for further management. Patient is not showing any signs of distress cardiovascular lane pulmonary lane or GI /GUtract lane. - Vital Signs Vital signs: Temp Pulse Resp BP Pulse Ox 98.2 F 111 H 16 101/56 L 100 08/31/19 19:12 08/31/19 19:12 08/31/19 19:12 08/31/19 19:12 08/31/19 19:12 - Laboratory Result Diagrams: 08/31/19 21:51 08/31/19 21:51 Laboratory results interpreted by me: 08/31/19 08/31/19 21:51 21:51 Hgb 12.5 L Hct 36.6 L RDW 15.4 H Seg Neuts % (Manual) 39 L Band Neutrophils % 1 L Lymphocytes % (Manual) 47 H Monocytes % (Manual) 1 L Eosinophils % (Manual) 12 H Sodium 128.2 L Chloride 90 L - Diagnostic Test Radiology reviewed: Image reviewed - EKG Interpretation by Me Additional EKG results interpreted by me: 08/31/19 23:46 Twelve-lead EKG done 2145 shows sinus tachycardia rate of [address]-T wave changes otherwise negative Discharge - Discharge Clinical Impression: Chronic back pain greater than 3 months duration Disposition: HOME, SELF-CARE Instructions: Oral Narcotic Medication ([facility]) Additional Instructions: Chronic Back Pain Chronic back pain (pain persisting longer than three months) is a common problem. A medical evaluation can look for herniated disc, arthritis, osteoporosis, tumors, and infections. But at least half the time, there's no obvious treatable cause. Anxiety and depression tend to worsen back pain. Ibuprofen or other anti-inflammatory medicine can help. A heating pad, used for 15-20 minutes at a time, can ease pain. For this type of back pain, narcotic medicines should be avoided. Muscle relaxers are rarely helpful unless you're having spasms. Activity is important. Find an aerobic exercise program that your back can tolerate. Too much rest makes back pain worse. Specific back exercises are usually prescribed to strengthen the back and abdominal muscles. Often, a physical therapist can help. Avoid heavy lifting, working while bent over, or standing with both knees straight. Most back pain patients do better with a firm mattress. If new symptoms of a "herniated disc" (radiation of pain, numbness, or tingling down the back of the leg or weakness in the leg) occur, you should be re-examined.Chronic Pain Control Stress, inactivity, and depression make pain more severe regardless of the cause of the pain. Stress and poor physical condition can cause pain such as headaches and backache. Relaxation: Rest in a quiet place with your eyes closed for 20 minutes twice daily. Concentrate on a pleasant image, or simply "feel" your breathing. Clear your mind. Stress management: Deal with your "stressors." Either take action, or gregory minate the stressor from your life. Don't let things hang over you. Accept those things you can't change. Nutrition: Eat small, balanced meals -- don't skip, don't overeat. Meals should be high-carbohydrate, low-sugar, low-fat. Exercise: Exercise helps painful conditions and eases stress. Get 30 minutes of moderate exercise, five days a week. Do an activity that does not flare your pain. Precautions: Pain which continues to disrupt daily activities, or which changes in nature, requires a medical evaluation. Pain Clinic referral is available. We do not manage chronic pain in the Emergency Department. We will try to appropriately help you through an acute flare of your chronic painful condition, but for on-going chronic pain that does not improve, you will need to see your private doctor or roller painter. We do not provide repeated m edication management of chronic painful conditions. If you wish, we can provide the name of local pain management physicians. Referrals: THOMAS NEGRO MD [Primary Care Provider] - Follow up as needed
[2019-08-31 22:29] LABS: APPEARANCE,URINE CLEAR; BILIRUBIN,URINE NEGATIVE (NEGATIVE); COLOR,URINE YELLOW; GLUCOSE, URINE NEGATIVE (NEGATIVE); KETONES,URINE NEGATIVE (NEGATIVE); LEUKOCYTE ESTERASE,URINE NEGATIVE (NEGATIVE); NITRITE,URINE NEGATIVE (NEGATIVE); PROTEIN,URINE NEGATIVE (NEGATIVE); URINE SPECIFIC GRAVITY 1.008; UROBILINOGEN,URINE NEGATIVE mg/dL (<2.0)
[2019-08-31 22:34] LABS: HEMATOCRIT 36.6 % (37.9-51.0); HEMOGLOBIN 12.5 g/dL (13.5-17.0); MEAN CORPUSCULAR HEMOGLOBIN 27.5 pg (27.0-33.4); MEAN CORPUSCULAR HGB CONC 34.1 g/dL (32.0-36.0); MEAN CORPUSCULAR VOLUME 81 fl (80-97); PLATELET COUNT 201 10^3/uL (150-450); RED BLOOD COUNT 4.54 10^6/uL (4.35-5.55); RED CELL DISTRIBUTION WIDTH 15.4 % (11.5-14.0); WHITE BLOOD COUNT 5.3 10^3/uL (4.0-10.5)
[2019-08-31 22:38] LABS: ALBUMIN 4.1 g/dL (3.5-5.0); ALKALINE PHOSPHATASE 123 U/L (38-126); ANION GAP 14 (5-19); ASPARTATE AMINO TRANSFERASE 36 U/L (17-59); BILIRUBIN,DIRECT 0.3 mg/dL (0.0-0.4); BILIRUBIN,TOTAL 0.6 mg/dL (0.2-1.3); BLOOD UREA NITROGEN 18 mg/dL (7-20); CALCIUM 10.2 mg/dL (8.4-10.2); CARBON DIOXIDE 24 mmol/L (22-30); CHLORIDE 90 mmol/L (98-107); GLUCOSE 94 mg/dL (75-110); POTASSIUM 4.6 mmol/L (3.6-5.0); TOTAL PROTEIN 7.7 g/dL (6.3-8.2)
[2019-08-31 22:59] LABS: ABSOLUTE LYMPHOCYTES# (MANUAL) 2.5 10^3/uL (0.5-4.7); ABSOLUTE MONOCYTES # (MANUAL) 0.1 10^3/uL (0.1-1.4); ANISOCYTOSIS SLIGHT; BAND NEUTROPHILS % (MANUAL) 1 % (3-5); BASOPHILS % (MANUAL) 0 % (0-2); EOSINOPHILS % (MANUAL) 12 % (0-6); LYMPHOCYTES % (MANUAL) 47 % (13-45); MONOCYTES % (MANUAL) 1 % (3-13); SEGMENTED NEUTROPHILS % (MAN) 39 % (42-78); TOTAL CELLS COUNTED 100
[2019-08-31 23:00] LABS: PLATELET COMMENT ADEQUATE
[2019-08-31] MEDS ORDERED: OXYCODONE HCL SR 10 MG TABLET PO ONE (23:01)
[2019-09-01 01:12] VITALS: BP 100/50
--- NOTE | 2019-09-01 09:48 | EKG REPORT ---
SEVERITY:- OTHERWISE NORMAL ECG - SINUS TACHYCARDIA : Confirmed by: Fatuma Kimble 01-Sep-2019 09:47:47
== END 2019-09-01 01:11 | disposition home or self-care (01) ==
LOC: ER 19:07
DX: G89.29 Other chronic pain (principal); M54.9 Dorsalgia, unspecified; R10.9 Unspecified abdominal pain; I10 Essential (primary) hypertension; J44.9 Chronic obstructive pulmonary disease, unspecified
CPT/HCPCS: 36415; 80053; 81001; 84484; 85025; 93005; 93010; 99284

== ENCOUNTER 2019-09-18 14:32 | Emergency (ER) | payer SELFPAY ==
[2019-09-18] MEDS ORDERED: NORMAL SALINE 1000 ML 1,000 ML IV ONE (14:57)
--- NOTE | 2019-09-18 14:59 | ER Document Report ---
ED Medical Screen (RME) - General Chief Complaint: Dizziness Stated Complaint: LEG WEAKNESS Time Seen by Provider: 09/18/19 14:53 TRAVEL OUTSIDE OF THE [place] IN LAST 30 DAYS: No - HPI Notes: 09/18/19 14:58 Patient is a 53-year-old male who presents complaining of generalized weakness- including his legs, occasional dizziness, decreased p.o. intake, and mild shortness of breath that is been present for the past couple days. Patient states that he is surgical excision of some lymph nodes this past Saturday under his right axilla that they are checking for cancer for. He is otherwise urinating normally and having normal bowel movements. No fever, cough, chest pain, abdominal pain, vomiting/diarrhea. I have treated and performed a rapid initial assessment of this patient. A comprehensive ED assessment and evaluation of the patient, analysis of test results and completion of medical decision making process will be conducted by additional ED providers. PHYSICAL EXAMINATION: GENERAL: Well-appearing, well-nourished and in no acute distress. A&Ox4. Answers questions appropriately. Heart: RRR Lungs: grossly CTAB Neuro: NIH 0, GCS 15, cranial is grossly intact - Related Data Allergies/Adverse Reactions: No Known Allergies Allergy (Verified 09/18/19 14:52) Past Medical History - Past Medical History Cardiac Medical History: Reports: Hx Hypertension Pulmonary Medical History: Reports: Hx Asthma, Hx COPD Neurological Medical History: Denies: Hx Seizures Endocrine Medical History: Denies: Hx Diabetes Mellitus Type 2, Hx Hyperthyroidism Renal/ Medical History: Denies: Hx End Stage Renal Disease, Hx Peritoneal Dialysis GI Medical History: Denies: Hx Cirrhosis, Hx Gastroesophageal Reflux Disease, Hx Hiatal Hernia Musculoskeltal Medical History: Denies Hx Arthritis, Denies Hx Fibromyalgia, Denies Hx Gout, Reports Hx Musculoskeletal Trauma Psychiatric Medical History: Reports: Hx Bipolar Disorder, Hx Depression Past Surgical History: Reports: Hx Kidney (Renal Surgery) - unilateral adrenalectomy 08/23, Hx Orthopedic Surgery - plate/screws in toe, Other - Left adrenalectomy - Immunizations Hx Diphtheria, Pertussis, Tetanus Vaccination: Yes Physical Exam - Vital signs Vitals: Temp Pulse Resp BP Pulse Ox 97.5 F 98 18 118/57 L 99 09/18/19 14:49 09/18/19 14:49 09/18/19 14:49 09/18/19 14:49 09/18/19 14:49 Course - Vital Signs Vital signs: Temp Pulse Resp BP Pulse Ox 97.5 F 98 18 118/57 L 99 09/18/19 14:49 09/18/19 14:49 09/18/19 14:49 09/18/19 14:49 09/18/19 14:49
[2019-09-18] MEDS ORDERED: IPRATROPIUM/ALBUTEROL 0.5-2.5 MG/3 ML AMPUL NEB ONE ×2 (15:00→18:19)
--- NOTE | 2019-09-18 15:21 | RADIOLOGY REPORT (SQ) ---
EXAM DESCRIPTION: CHEST 2 VIEWS COMPLETED DATE/TIME: 09/18/2019 3:11 pm REASON FOR STUDY: sob COMPARISON: PA and lateral views of the chest from 07/09/2019. EXAM PARAMETERS: NUMBER OF VIEWS: Two views. TECHNIQUE: PA and lateral views of the chest were obtained.. RADIATION DOSE: NA LIMITATIONS: none FINDINGS: LUNGS AND PLEURA: No consolidation, pleural effusion or pneumothorax. MEDIASTINUM AND HILAR STRUCTURES: No mediastinal or hilar contour abnormality. HEART AND VASCULAR STRUCTURES: The cardiac silhouette and pulmonary vasculature are within normal chery its. BONES: No acute findings. HARDWARE: Surgical clips projecting within the right upper quadrant and right axilla. OTHER: No other finding. IMPRESSION: No acute cardiopulmonary process. TECHNICAL DOCUMENTATION: JOB ID: [id number] 2010 [employer]- All Rights Reserved Reading location - IP/workstation name: [email or web address]
[2019-09-18 16:22] LABS: ABSOLUTE EOSINOPHILS # (AUTO) 0.8 10^3/uL (0.0-0.6); ABSOLUTE LYMPHOCYTES (AUTO) 1.3 10^3/uL (0.5-4.7); ABSOLUTE MONOCYTES (AUTO) 0.6 10^3/uL (0.1-1.4); ABSOLUTE NEUT (AUTO) 3.7 10^3/uL (1.7-8.2); BASOPHILS % (AUTO) 0.3 % (0-2); EOSINOPHILS % (AUTO) 12.4 % (0-6); HEMATOCRIT 37.3 % (37.9-51.0); HEMOGLOBIN 12.9 g/dL (13.5-17.0); LYMPHOCYTES % (AUTO) 20.6 % (13-45); MEAN CORPUSCULAR HEMOGLOBIN 27.5 pg (27.0-33.4); MEAN CORPUSCULAR HGB CONC 34.7 g/dL (32.0-36.0); MEAN CORPUSCULAR VOLUME 79 fl (80-97); MONOCYTES % (AUTO) 9.3 % (3-13); PLATELET COUNT 194 10^3/uL (150-450); RED CELL DISTRIBUTION WIDTH 15.2 % (11.5-14.0); SEGMENTED NEUTROPHILS % (AUTO) 57.4 % (42-78); TOTAL CELLS COUNTED % (AUTO) 100 %; WHITE BLOOD COUNT 6.4 10^3/uL (4.0-10.5)
[2019-09-18 16:26] LABS: APPEARANCE,URINE SLIGHTLY-CLOUDY; BILIRUBIN,URINE NEGATIVE (NEGATIVE); CALCIUM OXALATE CRYSTALS,URINE FEW /HPF; COLOR,URINE YELLOW; GLUCOSE, URINE NEGATIVE (NEGATIVE); KETONES,URINE NEGATIVE (NEGATIVE); PROTEIN,URINE 30 mg/dL (NEGATIVE); UROBILINOGEN,URINE NEGATIVE mg/dL (<2.0)
[2019-09-18 16:41] LABS: ALBUMIN 4.1 g/dL (3.5-5.0); ALKALINE PHOSPHATASE 207 U/L (38-126); ANION GAP 14 (5-19); ASPARTATE AMINO TRANSFERASE 55 U/L (17-59); BILIRUBIN,DIRECT 0.2 mg/dL (0.0-0.4); BLOOD UREA NITROGEN 24 mg/dL (7-20); CALCIUM 10.7 mg/dL (8.4-10.2); CARBON DIOXIDE 19 mmol/L (22-30); CHLORIDE 88 mmol/L (98-107); GLUCOSE 75 mg/dL (75-110); POTASSIUM 4.9 mmol/L (3.6-5.0); TOTAL PROTEIN 7.8 g/dL (6.3-8.2)
[2019-09-18] MEDS ORDERED: NORMAL SALINE 1000 ML 1,000 ML with POTASSIUM CHLORIDE 20 MEQ, MAGNESIUM SULFATE 8 MEQ,... IV SCH ×10 (18:00→21:00)
[2019-09-18] MEDS ORDERED: LEVOFLOXACIN 750 MG TABLET PO ONE (19:24)
--- NOTE | 2019-09-18 19:29 | ER Document Report ---
ED General - General Chief Complaint: Dizziness Stated Complaint: LEG WEAKNESS Time Seen by Provider: 09/18/19 14:53 Mode of Arrival: Medic Information source: Patient Notes: 83-year-old male arrives by EMS complaining of right arm pain after he had some plaque lesion removed from his right axillary area on Saturday 5 days ago. He reports 1 year ago he had adrenal mass removed from his abdomen. He also reports he has on and off bouts of low sodium and dehydration. Patient reports he drinks 2 x 24 ounce beers daily. TRAVEL OUTSIDE OF THE [place] IN LAST 30 DAYS: No - HPI Onset: This morning Onset/Duration: Sudden Quality of pain: Achy Severity: Mild Pain Level: 1 Associated symptoms: Weakness Exacerbated by: Movement Relieved by: Remaining still Similar symptoms previously: Yes Recently seen / treated by doctor: Yes - Fact his personal doctor called and spoke with charge nurse to treat sympto - Related Data Allergies/Adverse Reactions: No Known Allergies Allergy (Verified 09/18/19 14:52) Past Medical History - General Information source: Patient - Social History Smoking Status: Never Smoker Cigarette use (# per day): No Chew tobacco use (# tins/day): No Smoking Education Provided: No Frequency of alcohol use: two 24 oz beers daily Drug Abuse: None Lives with: Alone Family History: Reviewed & Not Pertinent Patient has suicidal ideation: No Patient has homicidal ideation: No - Past Medical History Cardiac Medical History: Reports: Hx Hypertension Pulmonary Medical History: Reports: Hx Asthma, Hx COPD Neurological Medical History: Denies: Hx Seizures Endocrine Medical History: Denies: Hx Diabetes Mellitus Type 2, Hx Hyperthyroidism Renal/ Medical History: Denies: Hx End Stage Renal Disease, Hx Peritoneal Dialysis GI Medical History: Denies: Hx Cirrhosis, Hx Gastroesophageal Reflux Disease, Hx Hiatal Hernia Musculoskeletal Medical History: Denies Hx Arthritis, Denies Hx Fibromyalgia, Denies Hx Gout, Reports Hx Musculoskeletal Trauma Psychiatric Medical History: Reports: Hx Bipolar Disorder, Hx Depression Past Surgical History: Reports: Hx Kidney (Renal Surgery) - unilateral adrenalectomy 08/23, Hx Orthopedic Surgery - plate/screws in toe, Other - Left adrenalectomy - Immunizations Hx Diphtheria, Pertussis, Tetanus Vaccination: Yes Review of Systems - Review of Systems Constitutional: See HPI, Weakness EENT: No symptoms reported Cardiovascular: No symptoms reported Respiratory: No symptoms reported Gastrointestinal: No symptoms reported Genitourinary: No symptoms reported Male Genitourinary: No symptoms reported Musculoskeletal: No symptoms reported Skin: See HPI, Other - " per pt status post excision of plaques "via right axillary area Hematologic/Lymphatic: No symptoms reported Neurological/Psychological: No symptoms reported Physical Exam - Vital signs Vitals: Temp Pulse Resp BP Pulse Ox 97.5 F 98 18 118/57 L 99 09/18/19 14:49 09/18/19 14:49 09/18/19 14:49 09/18/19 14:49 09/18/19 14:49 Interpretation: Normal - General General appearance: Appears well In distress: None - HEENT Head: Normocephalic Eyes: Normal Conjunctiva: Normal Cornea: Normal Extraocular movements intact: Yes Eyelashes: Normal Pupils: PERRL Pharynx: Normal Neck: Normal - Respiratory Respiratory status: No respiratory distress Chest status: Nontender Breath sounds: Normal Chest palpation: Normal - Cardiovascular Rhythm: Regular Heart sounds: Normal auscultation Murmur: No Friction rub: No Alen's crunch: No - Abdominal Inspection: Normal Distension: No distension Bowel sounds: Normal Tenderness: Nontender Organomegaly: No organomegaly - Genitourinary Tenderness: Nontender Scrotum: Normal - Back Back: Normal - Extremities General upper extremity: Other - Within normal limits except for right axillary area with skin with healing by secondary intention 2-1/2 cm status post surgical resection General lower extremity: Normal inspection - Neurological Neuro grossly intact: Yes Cognition: Normal Orientation: AAOx4 Cedric Coma Scale Eye Opening: Spontaneous [place] Coma Scale Verbal: Oriented [place] Coma Scale Motor: Obeys Commands Cedric Coma Scale Total: 15 Speech: Normal Cranial nerves: Normal Cerebellar coordination: Normal Motor strength normal: LUE, RUE, LLE, RLE - Psychological Associated symptoms: Normal affect - Skin Skin Temperature: Warm Skin Moisture: Dry Skin Color: Other - right axillary area with skin with healing by secondary intention 2-1/2 cm status post surgical resection Course - Vital Signs Vital signs: Temp Pulse Resp BP Pulse Ox 97.5 F 98 18 118/57 L 99 09/18/19 14:49 09/18/19 14:49 09/18/19 14:49 09/18/19 14:49 09/18/19 14:49 - Laboratory Result Diagrams: 09/18/19 15:25 09/18/19 15:25 Laboratory results interpreted by me: 09/18/19 09/18/19 09/18/19 15:25 15:25 15:25 Hgb 12.9 L Hct 37.3 L MCV 79 L RDW 15.2 H Eos % (Auto) 12.4 H Absolute Eos (auto) 0.8 H Sodium 121.2 L Chloride 88 L Carbon Dioxide 19 L BUN 24 H Creatinine 1.53 H Est GFR ( Amer) 58 L Est GFR (MDRD) Non-Af 48 L Calcium 10.7 H Alkaline Phosphatase 207 H Urine Protein 30 H - Diagnostic Test Radiology reviewed: Reports reviewed Critical Care Note - Critical Care Note Total time excluding time spent on procedures (mins): 90 Comments: In no apparent distress laying in bed. I will treat for symptoms of dehydration and hyponatremia as per request. Prior history of ER visits reveal patient to have a renal insufficiency and also hyponatremia with dehydration and patient is a beer drinker Discharge - Discharge Clinical Impression: Hyponatremia syndrome, Dehydration, post surgical procedure Condition: Good Disposition: HOME, SELF-CARE Additional Instructions: Follow-up with personal doctor this week return to ER as needed take medicines as directed; encourage fluids and wash gently your surgical wound with Hibiclens and then pat dry; do not scrub the skin lesion but rather pat the Hibiclens onto the wound and spray off with cool water. apply Bactroban to skin wound after drying skin Prescriptions: Chlorhexidine Gluconate [Antiseptic Skin Cleanser] 5 ml TP DAILY 5 Days #1 bottle Mupirocin [Bactroban 2% Ointment 22 gm] 1 applic TP DAILY 5 Days #1 tube Levofloxacin [Levaquin 750 mg Tablet] 750 mg PO DAILY #5 tablet Forms: Return to Work
[2019-09-18] MEDS ORDERED: MAGNESIUM SULFATE/D5W 0 GM/0 ML RTUPB IV ONE (19:31)
[2019-09-18] MEDS ORDERED: POTASSI CL 20 MEQ/NS 1L 0 ML IV ONE (19:31)
[2019-09-18] MEDS ORDERED: POTASSI CL 20 MEQ/50 ML RIDER 0 MEQ/0 ML RTUPB IV ONE (19:32)
[2019-09-18] MEDS ORDERED: CYANOCOBALAMIN (VITAMIN B-12) INJ 1000 MCG/1 ML VIAL IM ONE (19:50)
--- NOTE | 2019-09-18 20:18 | EKG REPORT ---
SEVERITY:- BORDERLINE ECG - SINUS RHYTHM PROBABLE LEFT ATRIAL ABNORMALITY BORDERLINE T ABNORMALITIES, ANT-LAT LEADS : Confirmed by: Atilio Bush MD 18-Sep-2019 20:18:17
[2019-09-18 21:19] LABS: NT PRO BNP 159 pg/mL (<125)
[2019-09-18 21:22] LABS: TROPONIN I < 0.012 ng/mL
[2019-09-18 23:15] VITALS: BP 160/88
== END 2019-09-18 23:05 | disposition home or self-care (01) ==
LOC: ER 14:32
DX: E87.1 Hypo-osmolality and hyponatremia (principal); E86.0 Dehydration; R53.1 Weakness; R42 Dizziness and giddiness; M79.601 Pain in right arm; Z98.890 Other specified postprocedural states; I10 Essential (primary) hypertension; J44.9 Chronic obstructive pulmonary disease, unspecified
CPT/HCPCS: 93005; 36415; 85025; 80053; 81001; 84484; 83880; 71046; 93010; J3475; J3480; J3411; J7030; J3490; J7620

== ENCOUNTER 2019-09-24 17:41 | Inpatient (IN) | payer SELFPAY ==
[2019-09-24 18:46] LABS: ABSOLUTE BASOPHILS # (AUTO) 0.1 10^3/uL (0.0-0.2); ABSOLUTE EOSINOPHILS # (AUTO) 1.2 10^3/uL (0.0-0.6); ABSOLUTE LYMPHOCYTES (AUTO) 1.8 10^3/uL (0.5-4.7); ABSOLUTE MONOCYTES (AUTO) 0.6 10^3/uL (0.1-1.4); ABSOLUTE NEUT (AUTO) 2.5 10^3/uL (1.7-8.2); EOSINOPHILS % (AUTO) 18.6 % (0-6); HEMATOCRIT 41.7 % (37.9-51.0); HEMOGLOBIN 14.4 g/dL (13.5-17.0); MEAN CORPUSCULAR HGB CONC 34.6 g/dL (32.0-36.0); MEAN CORPUSCULAR VOLUME 78 fl (80-97); MONOCYTES % (AUTO) 9.9 % (3-13); PLATELET COUNT 323 10^3/uL (150-450); RED BLOOD COUNT 5.35 10^6/uL (4.35-5.55); RED CELL DISTRIBUTION WIDTH 15.1 % (11.5-14.0); SEGMENTED NEUTROPHILS % (AUTO) 40.5 % (42-78); TOTAL CELLS COUNTED % (AUTO) 100 %; WHITE BLOOD COUNT 6.3 10^3/uL (4.0-10.5)
[2019-09-24 19:02] LABS: ALBUMIN 4.4 g/dL (3.5-5.0); ALKALINE PHOSPHATASE 240 U/L (38-126); ASPARTATE AMINO TRANSFERASE 50 U/L (17-59); BILIRUBIN,DIRECT 0.4 mg/dL (0.0-0.4); BILIRUBIN,TOTAL 0.7 mg/dL (0.2-1.3); BLOOD UREA NITROGEN 30 mg/dL (7-20); CALCIUM 11.3 mg/dL (8.4-10.2); CARBON DIOXIDE 19 mmol/L (22-30); CHLORIDE 85 mmol/L (98-107); GLUCOSE 91 mg/dL (75-110); TOTAL PROTEIN 8.4 g/dL (6.3-8.2)
[2019-09-24 19:05] LABS: ANION GAP 17 (5-19)
[2019-09-24 19:12] LABS: POTASSIUM 6.3 mmol/L (3.6-5.0)
[2019-09-24 20:14] LABS: APPEARANCE,URINE SLIGHTLY-CLOUDY; BILIRUBIN,URINE NEGATIVE (NEGATIVE); CALCIUM OXALATE CRYSTALS,URINE FEW /HPF; COLOR,URINE AMBER; GLUCOSE, URINE NEGATIVE (NEGATIVE); KETONES,URINE NEGATIVE (NEGATIVE); LEUKOCYTE ESTERASE,URINE NEGATIVE (NEGATIVE); NITRITE,URINE NEGATIVE (NEGATIVE); PROTEIN,URINE 30 mg/dL (NEGATIVE); URINE SPECIFIC GRAVITY 1.024; UROBILINOGEN,URINE NEGATIVE mg/dL (<2.0)
--- NOTE | 2019-09-24 21:18 | ER Document Report ---
ED General - General Chief Complaint: Abdominal Pain Stated Complaint: COUGH Time Seen by Provider: 09/24/19 20:15 Primary Care Provider: FABIANA LERMA MD [Primary Care Provider] - Follow up as needed TRAVEL OUTSIDE OF THE [place] IN LAST 30 DAYS: No - HPI Notes: 53-year-old male with history of alcohol abuse and previous treatment for an adrenal tumor with adrenal insufficiency presents now with 3-day history of generalized weakness, malaise nonproductive cough and some mild abdominal cramping. He denies vomiting. He denies fever or chills. He denies dysuria. He denies chest pain. He denies production of sputum or hemoptysis. He denies drug abuse. Review of old records shows that this man has had recurrent episodes of mild hyponatremia. - Related Data Allergies/Adverse Reactions: No Known Allergies Allergy (Verified 09/24/19 20:04) Past Medical History - General Information source: Patient - Social History Smoking Status: Former Smoker Drug Abuse: None Lives with: Family Family History: Reviewed & Not Pertinent Patient has suicidal ideation: No Patient has homicidal ideation: No - Past Medical History Cardiac Medical History: Reports: Hx Hypertension Pulmonary Medical History: Reports: Hx Asthma, Hx COPD Neurological Medical History: Denies: Hx Seizures Endocrine Medical History: Denies: Hx Diabetes Mellitus Type 2, Hx Hyperthyroidism Renal/ Medical History: Denies: Hx End Stage Renal Disease, Hx Peritoneal Dialysis GI Medical History: Denies: Hx Cirrhosis, Hx Gastroesophageal Reflux Disease, Hx Hiatal Hernia Musculoskeletal Medical History: Denies Hx Arthritis, Denies Hx Fibromyalgia, Denies Hx Gout, Reports Hx Musculoskeletal Trauma Psychiatric Medical History: Reports: Hx Bipolar Disorder, Hx Depression Past Surgical History: Reports: Hx Kidney (Renal Surgery) - unilateral adrenalectomy 08/23, Hx Orthopedic Surgery - plate/screws in toe, Other - Left adrenalectomy - Immunizations Hx Diphtheria, Pertussis, Tetanus Vaccination: Yes Review of Systems - Review of Systems Notes: Constitutional: Negative for fever. HENT: Negative for sore throat. Eyes: Negative for visual changes. Cardiovascular: Negative for chest pain. Respiratory: Negative for shortness of breath. Gastrointestinal: As per HPI. Genitourinary: Negative for dysuria. Musculoskeletal: Negative for back pain. Skin: Chronic dry skin and itching. Neurological: Negative for headaches, weakness or numbness. 10 point ROS negative except as marked above and in HPI. Physical Exam - Vital signs Vitals: Temp Pulse Resp BP Pulse Ox 98.9 F 102 H 16 126/66 H 97 09/24/19 20:01 09/24/19 20:01 09/24/19 20:01 09/24/19 20:01 09/24/19 20:01 - Notes Notes: GENERAL: Very chronically ill-appearing male approximately stated age in no acute distress. SKIN: Skin is extremely dry with widespread excoriations. HEAD: Normocephalic atraumatic. EYES: PERRLA. EOMI. Conjunctivae and sclerae clear. EARS: CANALS AND TMS CLEAR. NOSE: CLEAR. MOUTH: Moist mucosa. Good dentition. No stridor or edema. No drooling. NECK: Supple. No masses or thyromegaly. No adenopathy. Carotids 2+ without bruits. No JVD. BACK: Symmetrical without tenderness. CHEST: Respirations unlabored. Breath sounds clear and symmetrical. HEART: Regular rhythm. No murmur gallop or rub. ABDOMEN: Bilateral upper abdominal surgical scars soft nontender without masses, organomegaly or rebound. Bowel sounds normally active. No bruits. GENITALIA: Deferred. EXTREMITIES: No edema. No calf tenderness. Cap refill less than 1.5 seconds. Dorsalis pedis and posterior tibial pulses 3+ and symmetrical. NEUROLOGICAL: GCS 15. Alert and oriented x3. Fluent speech. Cranial nerves II through XII intact. Sensorimotor and cerebellar normal. Normal tone. PSYCHIATRIC: Very flat affect. Course - Re-evaluation Re-evalutation: 09/24/19 21:32 We will initiate IV hydration with normal saline because of his acute kidney injury and hyponatremia. He is placed on cardiac monitoring. We have initiated multiple modalities of treatment for his hyperkalemia including IV glucose and insulin bicarbonate and calcium gluconate. He is also going get some oral Kayexalate. I am awaiting results of chest x-ray and EKG and anticipate patient will be admitted to telemetry by medicine service. 09/24/19 23:30 Patient is receiving a stress dose of Solu-Cortef. His blood pressures on the low side here. I went back and looked at old records and these are actually very characteristic of his usual presentation. Case was discussed with the on- call hospitalist Dr. Justo Forrester who will admit to telemetry. - Vital Signs Vital signs: Temp Pulse Resp BP Pulse Ox 98.9 F 102 H 23 H 98/65 L 99 09/24/19 20:01 09/24/19 20:01 09/24/19 22:31 09/24/19 22:31 09/24/19 22:31 - Laboratory Result Diagrams: 09/24/19 18:30 09/24/19 18:30 Laboratory results interpreted by me: 09/24/19 09/24/19 09/24/19 18:30 18:30 19:40 MCV 78 L RDW 15.1 H Eos % (Auto) 18.6 H Absolute Eos (auto) 1.2 H Seg Neutrophils % 40.5 L VBG HCO3 Sodium 120.6 L* Potassium 6.3 H* Chloride 85 L Carbon Dioxide 19 L BUN 30 H Creatinine 1.67 H Est GFR ( Amer) 52 L Est GFR (MDRD) Non-Af 43 L POC Glucose Calcium 11.3 H Alkaline Phosphatase 240 H Total Protein 8.4 H Urine Protein 30 H 09/24/19 09/24/19 21:50 23:07 MCV RDW Eos % (Auto) Absolute Eos (auto) Seg Neutrophils % VBG HCO3 19.9 L Sodium Potassium Chloride Carbon Dioxide BUN Creatinine Est GFR ( Amer) Est GFR (MDRD) Non-Af POC Glucose 47 L Calcium Alkaline Phosphatase Total Protein Urine Protein Critical Care Note - Critical Care Note Total time excluding time spent on procedures (mins): 35 - Patient has critical hyperkalemia with a value of 6.1. He appears also to have acute kidney injury. He is getting some IV hydration. He is going get some oral Kayexalate and IV doses of glucose insulin bicarbonate and calcium. He will also receive oral Kayexalate. Discharge - Discharge Clinical Impression: Dehydration, Adrenal insufficiency, Acute kidney injury Condition: Fair Disposition: ADMITTED INPATIENT Admitting Provider: Mitzy (Hospitalist) Unit Admitted: Telemetry Referrals: FABIANA LERMA MD [Primary Care Provider] - Follow up as needed
[2019-09-24] MEDS ORDERED: NORMAL SALINE 1000 ML 1,000 ML IV ONE ×2 (21:19→23:28)
[2019-09-24] MEDS ORDERED: DEXTROSE 50%-WATER 25 GM/50 ML DISP.SYRIN IV ONE ×2 (21:22→23:45)
[2019-09-24] MEDS ORDERED: CALCIUM GLUCONATE 1000 MG/10 ML INJ IV ONE (21:22)
[2019-09-24] MEDS ORDERED: SODIUM POLYSTYRENE SULFONATE 15 GM/60 ML PO ONE (21:23)
[2019-09-24] MEDS ORDERED: INSULIN REG, HUMAN 100 UNIT/ML 3 ML VIAL (PYX) IV ONE (21:23)
[2019-09-24 22:01] LABS: VENOUS BLOOD HCO3 19.9 mmol/L (20-32); VENOUS BLOOD PCO2 36.4 mmHg (35-63); VENOUS BLOOD PH 7.36 (7.30-7.42)
--- NOTE | 2019-09-24 22:38 | RADIOLOGY REPORT (SQ) ---
EXAM DESCRIPTION: AP portable radiograph of the chest CLINICAL HISTORY: 53 years Male, cp COMPARISON: Two views of the chest September 18, 2019 FINDINGS: Lungs: Lungs are clear. No focal consolidation. No pneumothorax or pleural effusion. Mediastinum: Cardiac and mediastinal silhouette are within normal limits. Bones: Degenerative arthritis is seen in the right shoulder. Vascular clips are noted in the right axilla. IMPRESSION: No acute process.
[2019-09-24 22:46] LABS: URINE AMPHETAMINES SCREEN NEGATIVE; URINE BARBITURATES SCREEN NEGATIVE; URINE BENZODIAZEPINES SCREEN NEGATIVE; URINE COCAINE SCREEN NEGATIVE; URINE MARIJUANA (THC) SCREEN NEGATIVE; URINE METHADONE SCREEN NEGATIVE; URINE PHENCYCLIDINE SCREEN NEGATIVE
[2019-09-24 22:49] LABS: ALCOHOL < 10 mg/dL (NONE DETECTED)
[2019-09-24] MEDS ORDERED: HYDROCORTISONE SOD SUCCINATE INJ/PF 100 MG/2 ML SDV IV ONE (23:26)
[2019-09-24] MEDS ORDERED: ACETAMINOPHEN 325 MG TABLET PO PRN (23:29)
[2019-09-24] MEDS ORDERED: DIAZEPAM INJ 10 MG/2 ML DISP.SYRIN IV PRN (23:29)
[2019-09-24] MEDS ORDERED: CHLORPROMAZINE HCL INJ 25 MG/1 ML AMPULE IV PRN (23:29)
[2019-09-24] MEDS: PANTOPRAZOLE SODIUM 40 MG VIAL IV SCH (23:45)
[2019-09-24] MEDS ORDERED: DEXTROSE 10%-WATER 1,000 ML IV ONE (23:47)
[2019-09-24] MEDS: DEXTROSE 5%-NORMAL SALINE 1,000 ML IV PRN (23:48)
[2019-09-24] MEDS: DIAZEPAM 5 MG TABLET PO SCH (23:52)
[2019-09-25] MEDS ORDERED: TEMAZEPAM 15 MG CAPSULE PO PRN (00:45)
[2019-09-25] MEDS ORDERED: MAG HYDROX/AL HYDROX/SIMETH SUSP 30 ML UDCUP PO PRN (00:45)
[2019-09-25] MEDS ORDERED: PROMETHAZINE HCL INJ 25 MG/1 ML VIAL IV PRN (00:45)
[2019-09-25] MEDS ORDERED: MAGNESIUM HYDROXIDE SUSP 30 ML UDCUP PO PRN (00:45)
[2019-09-25] MEDS ORDERED: HYDROXYZINE PAMOATE 25 MG CAPSULE PO PRN (00:48)
--- NOTE | 2019-09-25 02:03 | PDOC H&P ---
History of Present Illness Admission Date/PCP: 09/24/2019 23:39 FABIANA LERMA MD Patient complains of: Generalized weakness History of Present Illness: MELITA STRONG is a 53 year old male who presented the emergency room with a 3- day history of generalized weakness. Patient admits progressively worsening generalized weakness with associated malaise and accompanying abdominal cramping . He admits the abdominal cramping is of mild intensity and intermittent occurrence without radiation. He denies other associated or accompanying signs and symptoms. He admits numerous prior similar episodes related to hyponatremia. He has not identified any aggravating or ameliorating factors for his weakness. In the emergency room he was found to have a sodium of 120 with a potassium of 6.3 and a creatinine of 1.69. The patient's hyperkalemia and hyponatremia treatments were initiated in the emergency room and the patient was subsequently admitted to the hospital for further evaluation and treatment. Past Medical History Cardiac Medical History: Reports: Hypertension Denies: Atrial Fibrillation, Coronary Artery Disease, DVT, Myocardial Infar ction, Hyperlipidema, Peripheral Vascular Disease, Pulmonary Embolism Pulmonary Medical History: Reports: Asthma, Bronchitis, Chronic Obstructive Pulmonary Disease (COPD), Pneumonia, Respiratory Failure EENT Medical History: Denies: Cataracts, Ears - Hearing aids Neurological Medical History: Denies: Hemorrhagic CVA, Ischemic CVA, Seizures Endocrine Medical History: Reports: Other - Chronic adrenal insufficiency Denies: Diabetes Mellitus Type 1, Diabetes Mellitus Type 2, Hyperthyroidism, Hypothyroidism, Obesity Renal/ Medical History: Denies: Chronic Kidney Disease, Nephrolithiasis Malignancy Medical History: Reports: Lymphoma GI Medical History: Denies: Cirrhosis, Crohn's Disease, Gastroesophageal Reflux Disease, Hiatal Hernia, Peptic Ulcer Disease, Ulcerative Colitis Musculoskeltal Medical History: Denies: Arthritis, Fibromyalgia, Gout Skin Medical History: Reports: Other - Chronic itching Denies: Eczema, Psoriasis Psychiatric Medical History: Reports: Alcohol Dependency, Bipolar Disorder, Depression Denies: Substance Abuse, Tobacco Dependency Traumatic Medical History: Reports: None Hematology: Denies: Anemia, Bleeding Tendencies Infectious Medical History: Reports: None Past Surgical History Past Surgical History: Reports: Orthopedic Surgery - plate/screws in toe, Other - Left adrenalectomy Social History Information Source: Patient Lives with: Spouse/Significant other Smoking Status: Former Smoker Electronic Cigarette use?: No Frequency of Alcohol Use: Heavy Hx Recreational Drug Use: No Drugs: None Hx Prescription Drug Abuse: No - Advance Directive Resuscitation Status: Full Code Surrogate healthcare decision maker:: Deann Strong Family History Family History: Malignancy. denies: CAD, DM, Hypertension Parental Family History Reviewed: Yes Children Family History Reviewed: No Sibling(s) Family History Reviewed.: Yes Medication/Allergy Home Medications: Albuterol Sulfate [Albuterol Sulfate Hfa] 2 puff IH Q4HP PRN 05/19/19 Hydroxyzine HCl [Atarax 10 mg Tablet] 10 mg PO Q8HP PRN 05/19/19 Hydrocodone/Acetaminophen [[place] 5-325 Tablet] 1 each PO Q6 PRN #20 tablet 05/24/19 Oxycodone HCl/Acetaminophen [Percocet 5-325 mg Tablet] 1 - 2 tab PO Q4H PRN #15 tablet 07/06/19 Oxycodone HCl/Acetaminophen [Percocet 5-325 mg Tablet] 1 tab PO Q4H PRN #15 tablet 07/16/19 Cyclobenzaprine HCl [Flexeril 10 mg Tablet] 10 mg PO TIDP PRN #15 tab 07/24/19 Ivermectin [Stromectol 3 mg Tablet] 4 mcg PO ONCE PRN #2 tablet 07/24/19 Oxycodone HCl [Oxycodone HCl 10 MG Tablet] 1 - 2 tab PO Q6H PRN #15 tablet 07/24/19 Permethrin [Acticin 5% Cream 60 gm] 60 gm TP ONCE PRN #60 cream.gm. 07/24/19 Permethrin [Acticin 5% Cream 60 gm] 2 applic TP NOW #2 tube 07/30/19 Prednisone 10 mg PO ASDIR PRN #21 tablet 07/30/19 Chlorhexidine Gluconate [Antiseptic Skin Cleanser] 5 ml TP DAILY 5 Days #1 bottle 09/18/19 Levofloxacin [Levaquin 750 mg Tablet] 750 mg PO DAILY #5 tablet 09/18/19 Mupirocin [Bactroban 2% Ointment 22 gm] 1 applic TP DAILY 5 Days #1 tube Allergies/Adverse Reactions: No Known Allergies Allergy (Verified 09/24/19 20:04) Review of Systems Constitutional: PRESENT: as per HPI, weakness, other - Malaise. ABSENT: chills, fever(s) Eyes: ABSENT: visual disturbances, other - Eye pain Ears: ABSENT: hearing changes, other - Ear pain Nose, Mouth, and Throat: ABSENT: headache(s), mouth pain, sore throat Cardiovascular: ABSENT: chest pain, dyspnea on exertion, orthropnea, palpitations Respiratory: PRESENT: cough - Chronic nonproductive. ABSENT: dyspnea, hemoptysis, sputum Gastrointestinal: PRESENT: as per HPI, abdominal pain - Cramping. ABSENT: constipation, diarrhea, nausea, vomiting Genitourinary: ABSENT: difficulty urinating, dysuria, hematuria Musculoskeletal: ABSENT: back pain, joint swelling Integumentary: ABSENT: diaphoresis, pruritus, rash Neurological: ABSENT: confusion, convulsions, focal weakness, memory loss, syncope Psychiatric: ABSENT: anxiety, depression Endocrine: ABSENT: cold intolerance, heat intolerance, polydipsia, polyphagia, polyuria Hematologic/Lymphatic: ABSENT: easy bleeding, easy bruising Allergic/Immunologic: ABSENT: seasonal rhinorrhea Physical Exam Vital Signs: Temp Pulse Resp BP Pulse Ox 98.9 F 102 H 23 H 98/65 L 99 09/24/19 20:01 09/24/19 20:01 09/24/19 22:31 09/24/19 22:31 09/24/19 22:31 Intake & Output 09/22/19 09/23/19 09/24/19 23:59 23:59 23:59 Weight 48.534 kg General appearance: PRESENT: no acute distress, cooperative, thin Head exam: PRESENT: atraumatic, normocephalic Eye exam: PRESENT: conjunctiva pink. ABSENT: conjunctival injection, scleral icterus Ear exam: PRESENT: normal external ear exam. ABSENT: bleeding, drainage Mouth exam: PRESENT: dry mucosa, neck supple Neck exam: ABSENT: thyromegaly, tracheal deviation Respiratory exam: PRESENT: clear to auscultation ramila, symmetrical, unlabored Cardiovascular exam: PRESENT: RRR, tachycardia. ABSENT: clicks, gallop, rubs Pulses: PRESENT: normal radial pulses, normal dorsalis pedis pul Vascular exam: PRESENT: normal capillary refill. ABSENT: pallor GI/Abdominal exam: PRESENT: normal bowel sounds, soft. ABSENT: tenderness Rectal exam: PRESENT: deferred Extremities exam: ABSENT: joint swelling, pedal edema Musculoskeletal exam: ABSENT: deformity, dislocation Neurological exam: PRESENT: alert, oriented to person, oriented to place, oriented to time, oriented to situation, CN II-XII grossly intact. ABSENT: m otor sensory deficit Psychiatric exam: PRESENT: appropriate affect, normal mood Skin exam: PRESENT: dry, intact, warm, other - Multiple areas of excoriation in various stages of healing noted on all extremities.. ABSENT: jaundice, rash, urticaria Results Laboratory Results: 09/24/19 18:30 09/24/19 18:30 09/24/19 09/24/19 09/24/19 18:30 18:30 19:40 WBC 6.3 RBC 5.35 Hgb 14.4 Hct 41.7 MCV 78 L MCH 27.0 MCHC 34.6 RDW 15.1 H Plt Count 323 Seg Neutrophils % 40.5 L VBG pH VBG pCO2 VBG HCO3 VBG Base Excess Sodium 120.6 L* Potassium 6.3 H* Chloride 85 L Carbon Dioxide 19 L Anion Gap 17 BUN 30 H Creatinine 1.67 H Est GFR ( Amer) 52 L Glucose 91 Calcium 11.3 H Total Bilirubin 0.7 AST 50 Alkaline Phosphatase 240 H Total Protein 8.4 H Albumin 4.4 Lipase 98.8 Urine Color JOSE ENRIQUE Urine Appearance SLIGHTLY-CLOUDY Urine pH 5.0 Ur Specific [place] 1.024 Urine Protein 30 H Urine Glucose (UA) NEGATIVE Urine Ketones NEGATIVE Urine Blood NEGATIVE Urine Nitrite NEGATIVE Ur Leukocyte Esterase NEGATIVE Urine WBC (Auto) 1 Urine RBC (Auto) 2 09/24/19 21:50 WBC RBC Hgb Hct MCV MCH MCHC RDW Plt Count Seg Neutrophils % VBG pH 7.36 VBG pCO2 36.4 VBG HCO3 19.9 L VBG Base Excess -5.0 Sodium Potassium Chloride Carbon Dioxide Anion Gap BUN Creatinine Est GFR ( Amer) Glucose Calcium Total Bilirubin AST Alkaline Phosphatase Total Protein Albumin Lipase Urine Color Urine Appearance Urine pH Ur Specific [place] Urine Protein Urine Glucose (UA) Urine Ketones Urine Blood Urine Nitrite Ur Leukocyte Esterase Urine WBC (Auto) Urine RBC (Auto) Impressions: Chest X-Ray 09/24/19 21:20 IMPRESSION: No acute process. Assessment and Plan - Diagnosis (1) Hyponatremia syndrome Is this a current diagnosis for this admission?: Yes (2) Adrenal insufficiency Is this a current diagnosis for this admission?: Yes (3) Hyperkalemia Is this a current diagnosis for this admission?: Yes (4) DARIUS (acute kidney injury) Is this a current diagnosis for this admission?: Yes (5) Lymphoma, diffuse Is this a current diagnosis for this admission?: Yes (6) Alcohol dependence Qualifiers: Substance use status: uncomplicated Qualified Code(s): F10.20 - Alcohol dependence, uncomplicated Is this a current diagnosis for this admission?: Yes - Time Time Spent with patient: 15-24 minutes Medications reviewed and adjusted accordingly: Yes Anticipated discharge: Home - Inpatient Certification Based on my medical assessment, after consideration of the patient's co morbidities, presenting symptoms, or acuity I expect that the services needed warrant INPATIENT care.: Yes I certify that my determination is in accordance with my understanding of Medicare's requirements for reasonable and necessary INPATIENT services [42 CFR 412.3e].: Yes Medical Necessity: Need Close Monitoring Due to Risk of Patient Decompensation, Need For IV Fluids, Need For Continuous Telemetry Monitoring
[2019-09-25] MEDS: DIAZEPAM 5 MG TABLET PO SCH ×4 (03:54→22:58)
[2019-09-25 04:08] LABS: ANION GAP 13 (5-19); BLOOD UREA NITROGEN 25 mg/dL (7-20); CALCIUM 9.5 mg/dL (8.4-10.2); CARBON DIOXIDE 14 mmol/L (22-30); CHLORIDE 99 mmol/L (98-107); GLUCOSE 150 mg/dL (75-110)
[2019-09-25 04:11] LABS: MEAN CORPUSCULAR HEMOGLOBIN 27.4 pg (27.0-33.4); MEAN CORPUSCULAR HGB CONC 35.5 g/dL (32.0-36.0); MEAN CORPUSCULAR VOLUME 77 fl (80-97); PLATELET COUNT 217 10^3/uL (150-450); RED CELL DISTRIBUTION WIDTH 14.6 % (11.5-14.0)
[2019-09-25 04:12] LABS: HEMOGLOBIN 12.1 g/dL (13.5-17.0); WHITE BLOOD COUNT 2.6 10^3/uL (4.0-10.5)
[2019-09-25 04:19] LABS: POTASSIUM 4.8 mmol/L (3.6-5.0)
[2019-09-25] MEDS: HEPARIN SOD (PORCINE) 5,000 UNIT/ML 1 ML VIAL SUBCUT SCH ×3 (05:35→22:58)
[2019-09-25] MEDS: HYDROCORTISONE SOD SUCCINATE INJ/PF 100 MG/2 ML SDV IV SCH ×3 (05:40→22:58)
[2019-09-25] MEDS: DEXTROSE 5%-NORMAL SALINE 1,000 ML IV PRN ×4 (05:51→23:24)
[2019-09-25] MEDS: ATENOLOL 50 MG TABLET PO SCH (10:00)
[2019-09-25] MEDS: PANTOPRAZOLE SODIUM 40 MG VIAL IV SCH ×2 (10:02→22:59)
--- NOTE | 2019-09-25 10:37 | PDOC PROGRESS REPORT ---
Subjective Progress Note for:: 09/25/19 Reason For Visit: HYPONATREMIA, HYPERKALEMIA, ACUTE KIDNEY INJURY 09/25/2019 Patient admitted with apparent hyponatremia, hyperkalemia, acute kidney injury, history of adrenal cell cancer, alcohol abuse, generalized weakness Physical Exam Vital Signs: Temp Pulse Resp BP Pulse Ox 97.7 F 89 19 91/59 L 100 09/25/19 07:38 09/25/19 07:38 09/25/19 07:38 09/25/19 07:38 09/25/19 07:38 Intake & Output 09/24/19 09/25/19 09/26/19 06:59 06:59 06:59 Intake Total 3260 1000 Balance 3260 1000 Weight 94.5 kg General appearance: PRESENT: no acute distress, mild distress, other - Multiple complaints but primarily states he has not been eating for 4 days at upper quadrant abdominal pain Respiratory exam: PRESENT: clear to auscultation ramila. ABSENT: rales, rhonchi, wheezes Cardiovascular exam: PRESENT: RRR. ABSENT: diastolic murmur, rubs, systolic murmur GI/Abdominal exam: PRESENT: mass - Possible palpation of his spleen in the left upper quadrant of the abdomen, liver no guarding no rebound no tenderness. Well healed incision Neurological exam: PRESENT: alert, awake, oriented to person, oriented to place, oriented to time, oriented to situation, CN II-XII grossly intact, other - Fine motor tremor of his hands. ABSENT: motor sensory deficit Psychiatric exam: PRESENT: anxious Results Laboratory Results: 09/25/19 03:24 09/25/19 03:24 09/24/19 09/24/19 09/24/19 18:30 18:30 19:40 WBC 6.3 RBC 5.35 Hgb 14.4 Hct 41.7 MCV 78 L MCH 27.0 MCHC 34.6 RDW 15.1 H Plt Count 323 Seg Neutrophils % 40.5 L VBG pH VBG pCO2 VBG HCO3 VBG Base Excess Sodium 120.6 L* Potassium 6.3 H* Chloride 85 L Carbon Dioxide 19 L Anion Gap 17 BUN 30 H Creatinine 1.67 H Est GFR ( Amer) 52 L Glucose 91 Lactic Acid Calcium 11.3 H Magnesium Total Bilirubin 0.7 AST 50 Alkaline Phosphatase 240 H Total Protein 8.4 H Albumin 4.4 Lipase 98.8 TSH Urine Color JOSE ENRIQUE Urine Appearance SLIGHTLY-CLOUDY Urine pH 5.0 Ur Specific [place] 1.024 Urine Protein 30 H Urine Glucose (UA) NEGATIVE Urine Ketones NEGATIVE Urine Blood NEGATIVE Urine Nitrite NEGATIVE Ur Leukocyte Esterase NEGATIVE Urine WBC (Auto) 1 Urine RBC (Auto) 2 09/24/19 09/25/19 09/25/19 21:50 03:24 03:24 WBC 2.6 L D RBC 4.40 Hgb 12.1 L D Hct 34.0 L MCV 77 L MCH 27.4 MCHC 35.5 RDW 14.6 H Plt Count 217 Seg Neutrophils % VBG pH 7.36 VBG pCO2 36.4 VBG HCO3 19.9 L VBG Base Excess -5.0 Sodium Potassium Chloride Carbon Dioxide Anion Gap BUN Creatinine Est GFR ( Amer) Glucose Lactic Acid 1.3 Calcium Magnesium Total Bilirubin AST Alkaline Phosphatase Total Protein Albumin Lipase TSH Urine Color Urine Appearance Urine pH Ur Specific [place] Urine Protein Urine Glucose (UA) Urine Ketones Urine Blood Urine Nitrite Ur Leukocyte Esterase Urine WBC (Auto) Urine RBC (Auto) 09/25/19 09/25/19 09/25/19 03:24 03:24 08:00 WBC RBC Hgb Hct MCV MCH MCHC RDW Plt Count Seg Neutrophils % VBG pH VBG pCO2 VBG HCO3 VBG Base Excess Sodium 126.4 L Potassium 4.8 D Chloride 99 Carbon Dioxide 14 L Anion Gap 13 BUN 25 H Creatinine 1.27 H Est GFR ( Amer) > 60 Glucose 150 H Lactic Acid 2.0 Calcium 9.5 Magnesium 1.8 Total Bilirubin AST Alkaline Phosphatase Total Protein Albumin Lipase TSH 6.51 H Urine Color Urine Appearance Urine pH Ur Specific [place] Urine Protein Urine Glucose (UA) Urine Ketones Urine Blood Urine Nitrite Ur Leukocyte Esterase Urine WBC (Auto) Urine RBC (Auto) Impressions: Chest X-Ray 09/24/19 21:20 IMPRESSION: No acute process. Assessment and Plan - Diagnosis (1) DARIUS (acute kidney injury) Is this a current diagnosis for this admission?: Yes (3) Hyperkalemia Is this a current diagnosis for this admission?: Yes (4) Adrenal insufficiency Is this a current diagnosis for this admission?: Yes (5) Alcohol dependence Qualifiers: Substance use status: uncomplicated Qualified Code(s): F10.20 - Alcohol dependence, uncomplicated Is this a current diagnosis for this admission?: Yes (6) Hyponatremia Is this a current diagnosis for this admission?: Yes - Plan Summary Summary: 09/25/2019 Temperature 97.7. Patient has been afebrile since admission Pulse of 89 blood pressure 91/59. Admission his blood pressure was 106/57 but since then has been lower as it is now. Oxygen saturation is 100% on room air Patient does not appear to be in distress. On admission his white count was 6300 this morning it is 2600. Platelets on arrival were 323,000 they are down to 217,000 now Sodium has improved when he was admitted it was 120 it is now 126. Patient does have a history of previous hyponatremia Potassium on admission was 6.3 it is now 4.8. BUN on admission was 30 and is now down to 25. 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 Revealed extensive hypermetabolic adenopathy suggestive of malignancy/lympho- proliferative disorder such as lymphoma Also hyper metabolic splenomegaly suspicious for lymphoma And hypermetabolic right adrenal gland with unchanged appearance, status post left adrenalectomy Patient appears to be seeing Dr. Yoo and I am going to consult him concerning this admission. He and I did discuss this patient over the phone today. - Time Time Spent with patient: 35 or more minutes
--- NOTE | 2019-09-25 10:43 | EKG REPORT ---
SEVERITY:- OTHERWISE NORMAL ECG - SINUS TACHYCARDIA : Confirmed by: Fatuma Kimble 25-Sep-2019 10:42:44
[2019-09-25] MEDS: DOCUSATE SODIUM 100 MG/10 ML UDC PO SCH ×2 (12:54→18:31)
[2019-09-25] MEDS: GUAIFENESIN SYRP 200 MG/10 ML UDC PO PRN (23:23)
[2019-09-26 05:13] LABS: ANION GAP 10 (5-19); BLOOD UREA NITROGEN 15 mg/dL (7-20); CARBON DIOXIDE 16 mmol/L (22-30); CHLORIDE 110 mmol/L (98-107); GLUCOSE 148 mg/dL (75-110); POTASSIUM 3.5 mmol/L (3.6-5.0)
[2019-09-26] MEDS: HEPARIN SOD (PORCINE) 5,000 UNIT/ML 1 ML VIAL SUBCUT SCH ×3 (05:24→21:51)
[2019-09-26] MEDS: HYDROCORTISONE SOD SUCCINATE INJ/PF 100 MG/2 ML SDV IV SCH ×3 (05:24→21:51)
[2019-09-26] MEDS: DIAZEPAM 5 MG TABLET PO SCH ×3 (05:26→21:51)
[2019-09-26] MEDS: DEXTROSE 5%-NORMAL SALINE 1,000 ML IV PRN ×3 (06:09→16:15)
[2019-09-26 06:21] LABS: MEAN CORPUSCULAR HEMOGLOBIN 27.4 pg (27.0-33.4); MEAN CORPUSCULAR HGB CONC 34.9 g/dL (32.0-36.0); MEAN CORPUSCULAR VOLUME 79 fl (80-97); PLATELET COUNT 209 10^3/uL (150-450); RED BLOOD COUNT 3.43 10^6/uL (4.35-5.55); RED CELL DISTRIBUTION WIDTH 15.2 % (11.5-14.0); WHITE BLOOD COUNT 3.1 10^3/uL (4.0-10.5)
[2019-09-26 06:26] LABS: HEMOGLOBIN 9.4 g/dL (13.5-17.0)
[2019-09-26] MEDS: ATENOLOL 50 MG TABLET PO SCH (09:34)
[2019-09-26] MEDS: PANTOPRAZOLE SODIUM 40 MG VIAL IV SCH ×2 (09:35→21:51)
[2019-09-26] MEDS: DOCUSATE SODIUM 100 MG/10 ML UDC PO SCH ×2 (09:44→17:26)
[2019-09-26] MEDS: POTASSIUM CHLORIDE 10 MEQ TABLET.ER PO SCH ×2 (11:20→17:29)
--- NOTE | 2019-09-26 11:32 | PDOC CONSULTATION ---
Consultation Consult Date: 09/26/19 Attending physician:: DONNA DUONG Provider Consulted: THOMAS NEGRO Consult reason:: Recent diagnosis of sarcoidosis, diffuse adenopathy History of Present Illness Admission Date/PCP: 09/24/19 23:50 FABIANA LERMA MD Patient complains of: Weakness, cough, weight loss History of Present Illness: MELITA STEH is a 53 year old male with known history of worsening diffuse lymphadenopathy. We originally saw him about a year and a half ago when he had bilateral adrenal masses along with axillary and mediastinal adenopathy. Ultimately I sent him to [place], under the direction of , surgical oncology, Margarito, had adrenalectomy which indicated angiomyolipoma. During that surgery also had sampling of the axillary adenopathy which only showed reactive hyperplasia. He improved thereafter but then late last year again began having weight loss, some mild fevers at home, other B symptoms, night sweats and imaging indicated increasing adenopathy, especially worsened in the mediastinum, I sent him up to [place] under the direction of thoracic surgery, Dr. Garcias they attempted bronchoscopy with biopsy but that was nondiagnostic so patient underwent mediastinoscopy with excision of a larger area of lymph node. This lymph node most recently did indicate noncaseating granuloma. All the work-up for TB, fungal stains, infectious work-up all was negative. HIV testing was also negative. Hepatitis testing was negative. As infectious work-up was negative, it was felt that the diagnosis may be most consistent with sarcoidosis. We are working on getting him to the outpatient [facility] sarcoidosis expert, Dr. Angulo. However he does not have an appointment yet for that. The other issue that he has been dealing with is some possible component of adrenal insufficiency. He does have endocrinology follow-up next month. Currently he is on high-dose steroids and feeling better than yesterday. Past Medical History Cardiac Medical History: Reports: Hypertension Denies: Atrial Fibrillation, Coronary Artery Disease, DVT, Myocardial Infar ction, Hyperlipidema, Peripheral Vascular Disease, Pulmonary Embolism Pulmonary Medical History: Reports: Asthma, Bronchitis, Chronic Obstructive Pulmonary Disease (COPD), Pneumonia, Respiratory Failure EENT Medical History: Denies: Cataracts, Ears - Hearing aids Neurological Medical History: Denies: Hemorrhagic CVA, Ischemic CVA, Seizures Endocrine Medical History: Reports: Other - Chronic adrenal insufficiency Denies: Diabetes Mellitus Type 1, Diabetes Mellitus Type 2, Hyperthyroidism, Hypothyroidism, Obesity Renal/ Medical History: Denies: Chronic Kidney Disease, End Stage Renal Disease, Nephrolithiasis Malignancy Medical History: Reports: Lymphoma GI Medical History: Denies: Cirrhosis, Crohn's Disease, Gastroesophageal Reflux Disease, Hiatal Hernia, Peptic Ulcer Disease, Ulcerative Colitis Musculoskeltal Medical History: Denies: Arthritis, Fibromyalgia, Gout Skin Medical History: Reports: Other - Chronic itching Denies: Eczema, Psoriasis Psychiatric Medical History: Reports: Alcohol Dependency, Bipolar Disorder, Depr ession Denies: Substance Abuse, Tobacco Dependency Traumatic Medical History: Reports: None Hematology: Denies: Anemia, Bleeding Tendencies, Heparin Induced Thrombocytopenia Infectious Medical History: Reports: None Past Surgical History Past Surgical History: Reports: Orthopedic Surgery - plate/screws in toe, Other - Left adrenalectomy Social History Information Source: Patient Lives with: Spouse/Significant other Smoking Status: Former Smoker Electronic Cigarette use?: No Frequency of Alcohol Use: Heavy Hx Recreational Drug Use: No Drugs: None Hx Prescription Drug Abuse: No - Advance Directive Resuscitation Status: Full Code Family History Family History: None, Malignancy. denies: CAD, DM, Hypertension Parental Family History Reviewed: Yes Children Family History Reviewed: Yes Sibling(s) Family History Reviewed.: Yes Medication/Allergy Home Medications: Hydroxyzine Pamoate [Vistaril 25 mg Capsule] 25 mg PO Q8HP PRN 09/25/19 Oxycodone HCl [Oxy-Ir 5 mg Tablet] 10 mg PO Q6HP PRN 09/25/19 Allergies/Adverse Reactions: No Known Allergies Allergy (Verified 09/24/19 20:04) Review of Systems Constitutional: ABSENT: chills, fever(s), headache(s), weight gain, weight loss Eyes: ABSENT: visual disturbances Ears: ABSENT: hearing changes Cardiovascular: ABSENT: chest pain, dyspnea on exertion, edema, orthropnea, palpitations Respiratory: ABSENT: cough, hemoptysis Gastrointestinal: ABSENT: abdominal pain, constipation, diarrhea, hematemesis, hematochezia, nausea, vomiting Genitourinary: ABSENT: dysuria, hematuria Musculoskeletal: ABSENT: joint swelling Integumentary: ABSENT: rash, wounds Neurological: ABSENT: abnormal gait, abnormal speech, confusion, dizziness, focal weakness, syncope Psychiatric: ABSENT: anxiety, depression, homidical ideation, suicidal ideation Endocrine: ABSENT: cold intolerance, heat intolerance, polydipsia, polyuria Hematologic/Lymphatic: ABSENT: easy bleeding, easy bruising Physical Exam Vital Signs: Temp Pulse Resp BP Pulse Ox 98.0 F 92 17 114/58 L 99 09/26/19 08:00 09/26/19 08:00 09/26/19 08:00 09/26/19 08:00 09/26/19 08:00 Intake & Output 09/25/19 09/26/19 09/27/19 06:59 06:59 06:59 Intake Total 3260 6323 Output Total 1375 Balance 3260 4948 Weight 94.5 kg 91.5 kg General appearance: PRESENT: no acute distress, well-developed, well-nourished Head exam: PRESENT: atraumatic, normocephalic Eye exam: PRESENT: conjunctiva pink, EOMI, PERRLA. ABSENT: scleral icterus Ear exam: PRESENT: normal external ear exam Mouth exam: PRESENT: moist, tongue midline Neck exam: ABSENT: carotid bruit, JVD, lymphadenopathy, thyromegaly Respiratory exam: PRESENT: clear to auscultation ramila. ABSENT: rales, rhonchi, wheezes Cardiovascular exam: PRESENT: RRR. ABSENT: diastolic murmur, rubs, systolic murmur Pulses: PRESENT: normal dorsalis pedis pul Vascular exam: PRESENT: normal capillary refill GI/Abdominal exam: PRESENT: normal bowel sounds, soft. ABSENT: distended, guarding, mass, organolmegaly, rebound, tenderness Rectal exam: PRESENT: deferred Extremities exam: PRESENT: full ROM. ABSENT: calf tenderness, clubbing, pedal edema Neurological exam: PRESENT: alert, awake, oriented to person, oriented to place, oriented to time, oriented to situation, CN II-XII grossly intact. ABSENT: motor sensory deficit Psychiatric exam: PRESENT: appropriate affect, normal mood. ABSENT: homicidal ideation, suicidal ideation Skin exam: PRESENT: dry, intact, warm. ABSENT: cyanosis, rash Results Laboratory Results: 09/26/19 06:10 09/26/19 04:05 09/26/19 09/26/19 09/26/19 04:05 04:05 06:10 WBC Cancelled 3.1 L RBC Cancelled 3.43 L Hgb Cancelled 9.4 L D Hct Cancelled 27.0 L MCV Cancelled 79 L MCH Cancelled 27.4 MCHC Cancelled 34.9 RDW Cancelled 15.2 H Plt Count Cancelled 209 Sodium 136.0 L Potassium 3.5 L Chloride 110 H Carbon Dioxide 16 L Anion Gap 10 BUN 15 Creatinine 0.94 Est GFR ( Amer) > 60 Glucose 148 H Calcium 9.0 Magnesium 1.5 L Impressions: Chest X-Ray 09/24/19 21:20 IMPRESSION: No acute process. 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 Ultimately he will need to be managed by pulmonology in [place]. Started Liam Iniguez for cough. (2) Pancytopenia Is this a current diagnosis for this admission?: Yes Plan: Pancytopenia also probably related in part to sarcoidosis. Continue with monitoring. - Time Time Spent: Greater than 70 Minutes - Inpatient Certification Based on my medical assessment, after consideration of the patient's comorbidities, presenting symptoms, or acuity I expect that the services needed warrant INPATIENT care.: Yes I certify that my determination is in accordance with my understanding of Medicare's requirements for reasonable and necessary INPATIENT services [42 CFR 412.3e].: Yes Medical Necessity: Risk of Complication if Not Cared For in Hospital
[2019-09-26] MEDS: BENZONATATE 100 MG CAPSULE PO PRN ×2 (13:03→22:03)
--- NOTE | 2019-09-26 15:37 | PDOC PROGRESS REPORT ---
Subjective Progress Note for:: 09/26/19 Reason For Visit: HYPONATREMIA, HYPERKALEMIA, ACUTE KIDNEY INJURY 09/26/2019 Admitted with adrenal insufficiency, hyponatremia, acute kidney injury, Physical Exam Vital Signs: Temp Pulse Resp BP Pulse Ox 98.7 F 65 21 H 98/50 L 98 09/26/19 12:00 09/26/19 12:00 09/26/19 12:00 09/26/19 12:00 09/26/19 12:00 Intake & Output 09/25/19 09/26/19 09/27/19 06:59 06:59 06:59 Intake Total 3260 6323 1400 Output Total 1375 Balance 3260 4948 1400 Weight 94.5 kg 91.5 kg General appearance: PRESENT: no acute distress, severe distress - Patient states he is feeling much better Respiratory exam: PRESENT: clear to auscultation ramila. ABSENT: rales, rhonchi, wheezes Cardiovascular exam: PRESENT: RRR. ABSENT: diastolic murmur, rubs, systolic murmur GI/Abdominal exam: PRESENT: other - Palpable spleen Neurological exam: PRESENT: alert, awake, oriented to person, oriented to place, oriented to time, oriented to situation, CN II-XII grossly intact. ABSENT: m otor sensory deficit Psychiatric exam: PRESENT: appropriate affect, normal mood. ABSENT: homicidal ideation, suicidal ideation Results Laboratory Results: 09/26/19 06:10 09/26/19 04:05 09/26/19 09/26/19 09/26/19 04:05 04:05 06:10 WBC Cancelled 3.1 L RBC Cancelled 3.43 L Hgb Cancelled 9.4 L D Hct Cancelled 27.0 L MCV Cancelled 79 L MCH Cancelled 27.4 MCHC Cancelled 34.9 RDW Cancelled 15.2 H Plt Count Cancelled 209 Sodium 136.0 L Potassium 3.5 L Chloride 110 H Carbon Dioxide 16 L Anion Gap 10 BUN 15 Creatinine 0.94 Est GFR ( Amer) > 60 Glucose 148 H Calcium 9.0 Magnesium 1.5 L Impressions: Chest X-Ray 09/24/19 21:20 IMPRESSION: No acute process. Assessment and Plan - Diagnosis (1) DARIUS (acute kidney injury) Is this a current diagnosis for this admission?: Yes (3) Hyperkalemia Is this a current diagnosis for this admission?: Yes (4) Adrenal insufficiency Is this a current diagnosis for this admission?: Yes (5) Alcohol dependence Qualifiers: Substance use status: uncomplicated Qualified Code(s): F10.20 - Alcohol dep endence, uncomplicated Is this a current diagnosis for this admission?: Yes (6) Hyponatremia Is this a current diagnosis for this admission?: Yes (7) Pancytopenia Is this a current diagnosis for this admission?: Yes (8) Sarcoidosis of lymph nodes Is this a current diagnosis for this admission?: Yes - Plan Summary Summary: 09/25/2019 Temperature 97.7. Patient has been afebrile since admission Pulse of 89 blood pressure 91/59. Admission his blood pressure was 106/57 but since then has been lower as it is now. Oxygen saturation is 100% on room air Patient does not appear to be in distress. On admission his white count was 6300 this morning it is 2600. Platelets on arrival were 323,000 they are down to 217,000 now Sodium has improved when he was admitted it was 120 it is now 126. Patient does have a history of previous hyponatremia Potassium on admission was 6.3 it is now 4.8. BUN on admission was 30 and is now down to 25. 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 Revealed extensive hypermetabolic adenopathy suggestive of malignancy/lympho- proliferative disorder such as lymphoma Also hyper metabolic splenomegaly suspicious for lymphoma And hypermetabolic right adrenal gland with unchanged appearance, status post left adrenalectomy Patient appears to be seeing Dr. Yoo and I am going to consult him concerning this admission. He and I did discuss this patient over the phone today. 09/26/2019 Patient's vital signs remained stable temperature 98 pulse 92 blood pressure 114/58 O2 sat 99% on room air White blood cell count is 3.1 hemoglobin is stable 9.4 platelets 209,000 Sodium is up to 136 potassium 3.5, patient is currently on 20 mEq p.o. twice daily, BUN is down to 15 creatinine is down to 0.94 Patient has been seen by hematology and he agrees that the patient needs to remain on high dose of steroids, currently Solu-Cortef 50 mg IV every 8 hours and to be followed by pulmonology in [place]. Patient's pancytopenia appears to be stable. Since patient is taking p.o.'s well I am going to decrease his IV fluids Follow his labs - Time Time Spent with patient: 25-34 minutes
[2019-09-27] MEDS: DIAZEPAM 5 MG TABLET PO SCH ×3 (05:01→21:48)
[2019-09-27] MEDS: HYDROCORTISONE SOD SUCCINATE INJ/PF 100 MG/2 ML SDV IV SCH (05:01)
[2019-09-27] MEDS: HEPARIN SOD (PORCINE) 5,000 UNIT/ML 1 ML VIAL SUBCUT SCH ×3 (05:02→21:44)
[2019-09-27 06:10] LABS: HEMOGLOBIN 9.1 g/dL (13.5-17.0); MEAN CORPUSCULAR HEMOGLOBIN 27.1 pg (27.0-33.4); MEAN CORPUSCULAR HGB CONC 33.8 g/dL (32.0-36.0); MEAN CORPUSCULAR VOLUME 80 fl (80-97); PLATELET COUNT 214 10^3/uL (150-450); RED BLOOD COUNT 3.37 10^6/uL (4.35-5.55); RED CELL DISTRIBUTION WIDTH 15.6 % (11.5-14.0); WHITE BLOOD COUNT 4.2 10^3/uL (4.0-10.5)
[2019-09-27 06:33] LABS: ANION GAP 10 (5-19); BLOOD UREA NITROGEN 9 mg/dL (7-20); CALCIUM 8.8 mg/dL (8.4-10.2); CARBON DIOXIDE 16 mmol/L (22-30); CHLORIDE 112 mmol/L (98-107); GLUCOSE 133 mg/dL (75-110); POTASSIUM 3.2 mmol/L (3.6-5.0)
[2019-09-27] MEDS: DOCUSATE SODIUM 100 MG/10 ML UDC PO SCH ×2 (09:27→17:50)
[2019-09-27] MEDS: POTASSIUM CHLORIDE 10 MEQ TABLET.ER PO SCH ×2 (09:33→17:52)
[2019-09-27] MEDS: PANTOPRAZOLE SODIUM 40 MG VIAL IV SCH (09:33)
[2019-09-27] MEDS: ATENOLOL 50 MG TABLET PO SCH (09:33)
[2019-09-27] MEDS: DEXTROSE 5%-NORMAL SALINE 1,000 ML IV PRN (09:36)
[2019-09-27] MEDS: PANTOPRAZOLE SODIUM 40 MG TABLET.DR PO SCH ×2 (12:38→21:48)
[2019-09-27] MEDS: PREDNISONE 20 MG TABLET PO SCH (14:19)
--- NOTE | 2019-09-27 14:32 | PDOC PROGRESS REPORT ---
Subjective Progress Note for:: 09/27/19 Reason For Visit: HYPONATREMIA, HYPERKALEMIA, ACUTE KIDNEY INJURY 09/27/2019 Adrenal insufficiency, hyponatremia, hyperkalemia, acute kidney injury Physical Exam Vital Signs: Temp Pulse Resp BP Pulse Ox 98.0 F 65 19 110/57 L 100 09/27/19 12:00 09/27/19 12:00 09/27/19 12:00 09/27/19 12:00 09/27/19 12:00 Intake & Output 09/26/19 09/27/19 09/28/19 06:59 06:59 06:59 Intake Total 6323 4590 521 Output Total 1375 1400 Balance 4948 3190 521 Weight 91.5 kg 54.4 kg General appearance: PRESENT: no acute distress Respiratory exam: PRESENT: clear to auscultation ramila. ABSENT: rales, rhonchi, wheezes Cardiovascular exam: PRESENT: RRR. ABSENT: diastolic murmur, rubs, systolic murmur Neurological exam: PRESENT: alert, awake, oriented to person, oriented to place, oriented to time, oriented to situation, CN II-XII grossly intact. ABSENT: motor sensory deficit Psychiatric exam: PRESENT: appropriate affect, normal mood. ABSENT: homicidal ideation, suicidal ideation Results Laboratory Results: 09/27/19 05:32 09/27/19 05:32 09/27/19 09/27/19 05:32 05:32 WBC 4.2 RBC 3.37 L Hgb 9.1 L Hct 27.0 L MCV 80 MCH 27.1 MCHC 33.8 RDW 15.6 H Plt Count 214 Sodium 138.3 Potassium 3.2 L Chloride 112 H Carbon Dioxide 16 L Anion Gap 10 BUN 9 Creatinine 0.76 Est GFR ( Amer) > 60 Glucose 133 H Calcium 8.8 Magnesium 1.4 L Impressions: Chest X-Ray 09/24/19 21:20 IMPRESSION: No acute process. Assessment and Plan - Diagnosis (1) DARIUS (acute kidney injury) Is this a current diagnosis for this admission?: Yes (3) Hyperkalemia Is this a current diagnosis for this admission?: Yes (4) Adrenal insufficiency Is this a current diagnosis for this admission?: Yes (5) Alcohol dependence Qualifiers: Substance use status: uncomplicated Qualified Code(s): F10.20 - Alcohol dependence, uncomplicated Is this a current diagnosis for this admission?: Yes (6) Hyponatremia Is this a current diagnosis for this admission?: Yes (7) Pancytopenia Is this a current diagnosis for this admission?: Yes (8) Sarcoidosis of lymph nodes Is this a current diagnosis for this admission?: Yes - Plan Summary Summary: 09/25/2019 Temperature 97.7. Patient has been afebrile since admission Pulse of 89 blood pressure 91/59. Admission his blood pressure was 106/57 but since then has been lower as it is now. Oxygen saturation is 100% on room air Patient does not appear to be in distress. On admission his white count was 6300 this morning it is 2600. Platelets on arrival were 323,000 they are down to 217,000 now Sodium has improved when he was admitted it was 120 it is now 126. Patient does have a history of previous hyponatremia Potassium on admission was 6.3 it is now 4.8. BUN on admission was 30 and is now down to 25. 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 Revealed extensive hypermetabolic adenopathy suggestive of malignancy/lympho- proliferative disorder such as lymphoma Also hyper metabolic splenomegaly suspicious for lymphoma And hypermetabolic right adrenal gland with unchanged appearance, status post left adrenalectomy Patient appears to be seeing Dr. Yoo and I am going to consult him concerning this admission. He and I did discuss this patient over the phone today. 09/26/2019 Patient's vital signs remained stable temperature 98 pulse 92 blood pressure 114/58 O2 sat 99% on room air White blood cell count is 3.1 hemoglobin is stable 9.4 platelets 209,000 Sodium is up to 136 potassium 3.5, patient is currently on 20 mEq p.o. twice daily, BUN is down to 15 creatinine is down to 0.94 Patient has been seen by hematology and he agrees that the patient needs to remain on high dose of steroids, currently Solu-Cortef 50 mg IV every 8 hours and to be followed by pulmonology in [place]. Patient's pancytopenia appears to be stable. Since patient is taking p.o.'s well I am going to decrease his IV fluids Follow his labs 09/27/2019 Patient is feeling much better and I plan to discharge him tomorrow I have switched him over to p.o. prednisone today 60 mg daily. Discussed this with Dr. Yoo, who feels he should stay on the steroids for about the next 30 days. We will set up outpatient appointments for the patient We will try to get him some financial assistance prior to discharge, concerning getting his medications Pressure 98 2 pulse 85, blood pressure 113/65, O2 sat 100% on room air White blood cell count is now up to 4.2 hemoglobin appears stable at 9.1 - Time Time Spent with patient: 25-34 minutes
[2019-09-27] MEDS: BENZONATATE 100 MG CAPSULE PO PRN (23:03)
[2019-09-28] MEDS: DIAZEPAM 5 MG TABLET PO SCH (05:04)
[2019-09-28] MEDS: HEPARIN SOD (PORCINE) 5,000 UNIT/ML 1 ML VIAL SUBCUT SCH (05:06)
--- NOTE | 2019-09-28 08:04 | PDOC PROGRESS REPORT ---
Subjective Progress Note for:: 09/28/19 Subjective:: Patient feeling much better today, ready to go home Reason For Visit: HYPONATREMIA, HYPERKALEMIA, ACUTE KIDNEY INJURY Physical Exam Vital Signs: Temp Pulse Resp BP Pulse Ox 97.7 F 82 17 120/62 99 09/27/19 23:51 09/28/19 02:00 09/27/19 23:51 09/27/19 23:51 09/27/19 23:51 Intake & Output 09/27/19 09/28/19 09/29/19 06:59 06:59 06:59 Intake Total 4590 2881 Output Total 1400 Balance 3190 2881 Weight 54.4 kg 55.6 kg General appearance: PRESENT: no acute distress, well-developed, well-nourished Head exam: PRESENT: atraumatic, normocephalic Eye exam: PRESENT: conjunctiva pink, EOMI, PERRLA. ABSENT: scleral icterus Ear exam: PRESENT: normal external ear exam Mouth exam: PRESENT: moist, tongue midline Neck exam: ABSENT: carotid bruit, JVD, lymphadenopathy, thyromegaly Respiratory exam: PRESENT: clear to auscultation ramila. ABSENT: rales, rhonchi, w heezes Cardiovascular exam: PRESENT: RRR. ABSENT: diastolic murmur, rubs, systolic murmur Pulses: PRESENT: normal dorsalis pedis pul Vascular exam: PRESENT: normal capillary refill GI/Abdominal exam: PRESENT: normal bowel sounds, soft. ABSENT: distended, guarding, mass, organolmegaly, rebound, tenderness Rectal exam: PRESENT: deferred Extremities exam: PRESENT: full ROM. ABSENT: calf tenderness, clubbing, pedal edema Neurological exam: PRESENT: alert, awake, oriented to person, oriented to place, oriented to time, oriented to situation, CN II-XII grossly intact. ABSENT: motor sensory deficit Psychiatric exam: PRESENT: appropriate affect, normal mood. ABSENT: homicidal ideation, suicidal ideation Skin exam: PRESENT: dry, intact, warm. ABSENT: cyanosis, rash Results Laboratory Results: 09/27/19 05:32 09/27/19 05:32 Impressions: Chest X-Ray 09/24/19 21:20 IMPRESSION: No acute process. Assessment & Plan - Diagnosis (1) Sarcoidosis of lymph nodes Is this a current diagnosis for this admission?: Yes Plan: Patient will be placed on continued steroids as an outpatient, we will work on getting him an appointment with pulmonology in [place] (2) Pancytopenia Is this a current diagnosis for this admission?: Yes Plan: Improved - Time Time Spent with patient: 15-24 minutes
[2019-09-28 11:16] VITALS: BP 121/64
[2019-09-28] MEDS: ATENOLOL 50 MG TABLET PO SCH (11:16)
[2019-09-28] MEDS: PREDNISONE 20 MG TABLET PO SCH (11:17)
[2019-09-28] MEDS: DOCUSATE SODIUM 100 MG/10 ML UDC PO SCH (11:18)
[2019-09-28] MEDS: POTASSIUM CHLORIDE 10 MEQ TABLET.ER PO SCH (11:19)
[2019-09-28] MEDS: PANTOPRAZOLE SODIUM 40 MG TABLET.DR PO SCH (11:19)
[2019-09-28] MEDS: GUAIFENESIN SYRP 200 MG/10 ML UDC PO PRN (11:43)
--- NOTE | 2019-09-28 16:27 | PDOC DISCHARGE SUMMARY ---
Impression - Admit/DC Date/PCP Admission Date/Primary Care Provider: 09/24/19 23:50 FABIANA LERMA MD Discharge Date: 09/30/19 - Discharge Diagnosis (1) DARIUS (acute kidney injury) Is this a current diagnosis for this admission?: Yes (3) Hyperkalemia Is this a current diagnosis for this admission?: Yes (4) Adrenal insufficiency Is this a current diagnosis for this admission?: Yes (5) Alcohol dependence Is this a current diagnosis for this admission?: Yes (6) Hyponatremia Is this a current diagnosis for this admission?: Yes (7) Pancytopenia Is this a current diagnosis for this admission?: Yes (8) Sarcoidosis of lymph nodes Is this a current diagnosis for this admission?: Yes - Assessment Summary: 09/25/2019 Temperature 97.7. Patient has been afebrile since admission Pulse of 89 blood pressure 91/59. Admission his blood pressure was 106/57 but since then has been lower as it is now. Oxygen saturation is 100% on room air Patient does not appear to be in distress. On admission his white count was 6300 this morning it is 2600. Platelets on arrival were 323,000 they are down to 217,000 now Sodium has improved when he was admitted it was 120 it is now 126. Patient does have a history of previous hyponatremia Potassium on admission was 6.3 it is now 4.8. BUN on admission was 30 and is now down to 25. 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 Revealed extensive hypermetabolic adenopathy suggestive of malignancy/lympho- proliferative disorder such as lymphoma Also hyper metabolic splenomegaly suspicious for lymphoma And hypermetabolic right adrenal gland with unchanged appearance, status post left adrenalectomy Patient appears to be seeing Dr. Yoo and I am going to consult him concerning this admission. He and I did discuss this patient over the phone today. 09/26/2019 Patient's vital signs remained stable temperature 98 pulse 92 blood pressure 114/58 O2 sat 99% on room air White blood cell count is 3.1 hemoglobin is stable 9.4 platelets 209,000 Sodium is up to 136 potassium 3.5, patient is currently on 20 mEq p.o. twice daily, BUN is down to 15 creatinine is down to 0.94 Patient has been seen by hematology and he agrees that the patient needs to remain on high dose of steroids, currently Solu-Cortef 50 mg IV every 8 hours and to be followed by pulmonology in [place]. Patient's pancytopenia appears to be stable. Since patient is taking p.o.'s well I am going to decrease his IV fluids Follow his labs 09/27/2019 Patient is feeling much better and I plan to discharge him tomorrow I have switched him over to p.o. prednisone today 60 mg daily. Discussed this with Dr. Yoo, who feels he should stay on the steroids for about the next 30 days. We will set up outpatient appointments for the patient We will try to get him some financial assistance prior to discharge, concerning getting his medications Pressure 98 2 pulse 85, blood pressure 113/65, O2 sat 100% on room air White blood cell count is now up to 4.2 hemoglobin appears stable at 9.1 09/28/2019 Patient is medically stable for discharge Feeling much better White blood cell count 4.2 Chemistry shows potassium down slightly 3.2 TSH up slightly 6.51 Patient was discharged home on a 30-day dose of steroids, hopefully he will be seen by pulmonology prior to that 30 days completion 60 days for 5 days 50 days for 5 days 40 days for 5 days 30 mg for 5 days 20 mg for 5 days then 10 mg for 5 days Also sent out on 20 mEq of KCl twice daily as well as Tenormin 12.5 mg daily Patient is going to follow-up with allergy and then pulmonology over at [facility] Patient was seen by discharge planning prior to release and his medications and repeat visits are coordinated - Additional Information Resuscitation Status: Full Code Discharge Diet: As Tolerated Discharge Activity: Activity As Tolerated Referrals: [facility] [Provider Group] - 10/05/19 2:00 pm (WITH OSVALDO KINGSLEY) Prescriptions: Potassium Chloride [Klor-Con 10 Meq Tablet ER] 20 meq PO BID 30 Days #60 table t.er Prednisone 10 mg PO ASDIR 30 Days #105 tablet Atenolol [Tenormin 50 mg Tablet] 12.5 mg PO DAILY 30 Days #30 tablet Home Medications: Hydroxyzine Pamoate [Vistaril 25 mg Capsule] 25 mg PO Q8HP PRN 09/25/19 Oxycodone HCl [Oxy-Ir 5 mg Tablet] 10 mg PO Q6HP PRN 09/25/19 Acetaminophen [Tylenol 325 mg Tablet] 650 mg PO Q4HP PRN tablet 09/28/19 Atenolol [Tenormin 50 mg Tablet] 12.5 mg PO DAILY 30 Days #30 tablet 09/28/19 Potassium Chloride [Klor-Con 10 Meq Tablet ER] 20 meq PO BID 30 Days #60 tablet.er 09/28/19 Prednisone 10 mg PO ASDIR 30 Days #105 tablet 09/28/19 History of Present Illiness History of Present Illness: MELITA SETH is a 53 year old male Physical Exam Vital Signs: Temp Pulse Resp BP Pulse Ox 97.5 F 75 16 121/64 100 09/28/19 12:00 09/28/19 12:00 09/28/19 12:00 09/28/19 12:00 09/28/19 12:00 Intake & Output 09/27/19 09/28/19 09/29/19 06:59 06:59 06:59 Intake Total 4590 2881 Output Total 1400 Balance 3190 2881 Weight 54.4 kg 55.6 kg Results Laboratory Results: WBC 4.2 10^3/uL (4.0-10.5) 09/27/19 05:32 RBC 3.37 10^6/uL (4.35-5.55) L 09/27/19 05:32 Hgb 9.1 g/dL (13.5-17.0) L 09/27/19 05:32 Hct 27.0 % (37.9-51.0) L 09/27/19 05:32 MCV 80 fl (80-97) 09/27/19 05:32 MCH 27.1 pg (27.0-33.4) 09/27/19 05:32 MCHC 33.8 g/dL (32.0-36.0) 09/27/19 05:32 RDW 15.6 % (11.5-14.0) H 09/27/19 05:32 Plt Count 214 10^3/uL (150-450) 09/27/19 05:32 Lymph % (Auto) 29.0 % (13-45) 09/24/19 18:30 [place] % (Auto) 9.9 % (3-13) 09/24/19 18:30 Eos % (Auto) 18.6 % (0-6) H 09/24/19 18:30 Baso % (Auto) 2.0 % (0-2) 09/24/19 18:30 Absolute Neuts (auto) 2.5 10^3/uL (1.7-8.2) 09/24/19 18:30 Absolute Lymphs (auto) 1.8 10^3/uL (0.5-4.7) 09/24/19 18:30 Absolute Monos (auto) 0.6 10^3/uL (0.1-1.4) 09/24/19 18:30 Absolute Eos (auto) 1.2 10^3/uL (0.0-0.6) H 09/24/19 18:30 Absolute Basos (auto) 0.1 10^3/uL (0.0-0.2) 09/24/19 18:30 Seg Neutrophils % 40.5 % (42-78) L 09/24/19 18:30 Platelet Estimate Cancelled 09/26/19 04:05 VBG pH 7.36 (7.30-7.42) 09/24/19 21:50 VBG pCO2 36.4 mmHg (35-63) 09/24/19 21:50 VBG HCO3 19.9 mmol/L (20-32) L 09/24/19 21:50 VBG Base Excess -5.0 mmol/L 09/24/19 21:50 Sodium 138.3 mmol/L (137-145) 09/27/19 05:32 Potassium 3.2 mmol/L (3.6-5.0) L 09/27/19 05:32 Chloride 112 mmol/L (98-107) H 09/27/19 05:32 Carbon Dioxide 16 mmol/L (22-30) L 09/27/19 05:32 Anion Gap 10 (5-19) 09/27/19 05:32 BUN 9 mg/dL (7-20) 09/27/19 05:32 Creatinine 0.76 mg/dL (0.52-1.25) 09/27/19 05:32 Est GFR ( Amer) > 60 (>60) 09/27/19 05:32 Est GFR (MDRD) Non-Af > 60 (>60) 09/27/19 05:32 Glucose 133 mg/dL (75-110) H 09/27/19 05:32 POC Glucose 162 mg/dL (70-110) H 09/25/19 00:38 Lactic Acid 2.0 mmol/L (0.7-2.1) 09/25/19 08:00 Calcium 8.8 mg/dL (8.4-10.2) 09/27/19 05:32 Magnesium 1.4 mg/dL (1.6-2.3) L 09/27/19 05:32 Total Bilirubin 0.7 mg/dL (0.2-1.3) 09/24/19 18:30 Direct Bilirubin 0.4 mg/dL (0.0-0.4) 09/24/19 18:30 Neonat Total Bilirubin Not Reportable 09/24/19 18:30 Neonat Direct Bilirubin Not Reportable 09/24/19 18:30 Neonat Indirect Bili Not Reportable 09/24/19 18:30 AST 50 U/L (17-59) 09/24/19 18:30 ALT 14 U/L (<50) 09/24/19 18:30 Alkaline Phosphatase 240 U/L (38-126) H 09/24/19 18:30 Total Protein 8.4 g/dL (6.3-8.2) H 09/24/19 18:30 Albumin 4.4 g/dL (3.5-5.0) 09/24/19 18:30 Lipase 98.8 U/L (23-300) 09/24/19 18:30 TSH 6.51 uIU/mL (0.47-4.68) H 09/25/19 03:24 Random Cortisol 23.50 ug/dL (None Established) 09/24/19 21:50 Urine Color JOSE ENRIQUE 09/24/19 19:40 Urine Appearance SLIGHTLY-CLOUDY 09/24/19 19:40 Urine pH 5.0 (5.0-9.0) 09/24/19 19:40 Ur Specific [place] 1.024 09/24/19 19:40 Urine Protein 30 mg/dL (NEGATIVE) H 09/24/19 19:40 Urine Glucose (UA) NEGATIVE mg/dL (NEGATIVE) 09/24/19 19:40 Urine Ketones NEGATIVE mg/dL (NEGATIVE) 09/24/19 19:40 Urine Blood NEGATIVE (NEGATIVE) 09/24/19 19:40 Urine Nitrite NEGATIVE (NEGATIVE) 09/24/19 19:40 Urine Bilirubin NEGATIVE (NEGATIVE) 09/24/19 19:40 Urine Urobilinogen NEGATIVE mg/dL (<2.0) 09/24/19 19:40 Ur Leukocyte Esterase NEGATIVE (NEGATIVE) 09/24/19 19:40 Urine WBC (Auto) 1 /HPF 09/24/19 19:40 Urine RBC (Auto) 2 /HPF 09/24/19 19:40 U Hyaline Cast (Auto) 22 /LPF 09/24/19 19:40 Calcium Oxalate Cr Auto FEW /HPF 09/24/19 19:40 Urine Mucus (Auto) OCC /LPF 09/24/19 19:40 Urine Ascorbic Acid NEGATIVE (NEGATIVE) 09/24/19 19:40 Urine Opiates Screen NEGATIVE 09/24/19 19:40 Urine Methadone Screen NEGATIVE 09/24/19 19:40 Ur Barbiturates Screen NEGATIVE 09/24/19 19:40 Ur Phencyclidine Scrn NEGATIVE 09/24/19 19:40 Ur Amphetamines Screen NEGATIVE 09/24/19 19:40 U Benzodiazepines Scrn NEGATIVE 09/24/19 19:40 Urine Cocaine Screen NEGATIVE 09/24/19 19:40 U Marijuana (THC) Screen NEGATIVE 09/24/19 19:40 Serum Alcohol < 10 mg/dL (NONE DETECTED) 09/24/19 21:50 Slides for Path Review Cancelled 09/26/19 04:05 Impressions: Chest X-Ray 09/24/19 21:20 IMPRESSION: No acute process. Stroke Is this a Stroke Patient?: No Acute Heart Failure - Is this a Heart Failure Patient?: No
== END 2019-09-28 13:38 | disposition home or self-care (01) | DRG 683 ==
LOC: ER 17:41 → EH 23:50 → 5 09-25 01:24
PROVIDERS: ADMIT Emergency Medicine; ATTEND Emergency Medicine
DX: N17.9 Acute kidney failure, unspecified (principal); D61.818 Other pancytopenia; E87.1 Hypo-osmolality and hyponatremia; E87.5 Hyperkalemia; D86.1 Sarcoidosis of lymph nodes; Z87.891 Personal history of nicotine dependence; I10 Essential (primary) hypertension; J44.9 Chronic obstructive pulmonary disease, unspecified; F31.9 Bipolar disorder, unspecified; F32.9 Major depressive disorder, single episode, unspecified; F10.20 Alcohol dependence, uncomplicated; Z85.858 Personal history of malignant neoplasm of other endocrine glands; Z59.7 Insufficient social insurance and welfare support
CPT/HCPCS: 36415; 71045; 80048; 80053; 80307; 81001; 82533; 82803; 82962; 83605; 83690; 83735; 84443; 85025; 85027; 93005; 93010; 96361; 96374; 96375; 99291; C9113; J0610; J1644; J1720; J1815; J3490; J7030; J7042; J7512

== ENCOUNTER 2019-10-06 19:24 | Inpatient (IN) | payer MEDICAID, OTHER ==
--- NOTE | 2019-10-06 19:54 | ER Document Report ---
ED Medical Screen (RME) - General Chief Complaint: Chest Wall Pain Stated Complaint: CHEST WALL PAIN Time Seen by Provider: 10/06/19 19:50 Primary Care Provider: FABIANA LERMA MD [Primary Care Provider] - Follow up as needed Notes: 53 y/o male presents for dyspnea and chest pain that started early this morning. Pt is 92% RA and able to get out 1-2 word sentences. Recently diagnosed with ?lymphoma and due to start chemo next week. Pt's oncologist is Dr. Yoo. Lungs decreased air movement. I have greeted and performed a rapid initial assessment of this patient. A comprehensive ED assessment and evaluation of the patient, analysis of test results and completion of the medical decision making process with be conducted by additional ED providers. TRAVEL OUTSIDE OF THE [place] IN LAST 30 DAYS: No - Related Data Allergies/Adverse Reactions: No Known Allergies Allergy (Verified 09/24/19 20:04) Past Medical History - Past Medical History Cardiac Medical History: Reports: Hx Hypertension Denies: Hx Atrial Fibrillation, Hx Coronary Artery Disease, Hx DVT, Hx Heart Attack, Hx Hypercholesterolemia, Hx Peripheral Vascular Disease, Hx Pulmonary Embolism Pulmonary Medical History: Reports: Hx Asthma, Hx Bronchitis, Hx COPD, Hx Pneumonia, Hx Respiratory Failure Neurological Medical History: Denies: Hx Seizures Endocrine Medical History: Denies: Hx Diabetes Mellitus Type 1, Hx Diabetes Mellitus Type 2, Hx Hyperthyroidism, Hx Hypothyroidism Renal/ Medical History: Denies: Hx End Stage Renal Disease, Hx Peritoneal Dialysis Malignancy Medical History: Reports Hx Lymphoma GI Medical History: Denies: Hx Cirrhosis, Hx Crohn's Disease, Hx Gastroesophageal Reflux Disease, Hx Hiatal Hernia, Hx Ulcerative Colitis Musculoskeltal Medical History: Denies Hx Arthritis, Denies Hx Fibromyalgia, Denies Hx Gout, Reports Hx Musculoskeletal Trauma Skin Medical History: Denies Hx Eczema, Denies Hx Psoriasis Psychiatric Medical History: Reports: Hx Bipolar Disorder, Hx Depression Past Surgical History: Reports: Hx Kidney (Renal Surgery) - unilateral adrenalectomy 08/23, Hx Orthopedic Surgery - plate/screws in toe, Other - Left adrenalectomy - Immunizations Hx Diphtheria, Pertussis, Tetanus Vaccination: Yes Physical Exam - Vital signs Vitals: Temp Pulse Resp BP Pulse Ox 99.6 F 99 20 136/69 H 92 10/06/19 19:40 10/06/19 19:40 10/06/19 19:40 10/06/19 19:40 10/06/19 19:40 Course - Vital Signs Vital signs: Temp Pulse Resp BP Pulse Ox 99.6 F 99 20 136/69 H 92 10/06/19 19:40 10/06/19 19:40 10/06/19 19:40 10/06/19 19:40 10/06/19 19:40 Doctor's Discharge - Discharge Referrals: FABIANA LERMA MD [Primary Care Provider] - Follow up as needed
[2019-10-06] MEDS ORDERED: IPRATROPIUM/ALBUTEROL 0.5-2.5 MG/3 ML AMPUL NEB ONE (20:29)
[2019-10-06 20:34] LABS: HEMATOCRIT 37.5 % (37.9-51.0); HEMOGLOBIN 12.2 g/dL (13.5-17.0); MEAN CORPUSCULAR HEMOGLOBIN 27.8 pg (27.0-33.4); MEAN CORPUSCULAR HGB CONC 32.6 g/dL (32.0-36.0); PLATELET COUNT 341 10^3/uL (150-450); RED BLOOD COUNT 4.39 10^6/uL (4.35-5.55); RED CELL DISTRIBUTION WIDTH 18.9 % (11.5-14.0); WHITE BLOOD COUNT 29.6 10^3/uL (4.0-10.5)
--- NOTE | 2019-10-06 20:37 | RADIOLOGY REPORT (SQ) ---
EXAM DESCRIPTION: XR CHEST 1 VIEW COMPLETED DATE/TME: 10/06/2019 19:54 CLINICAL HISTORY: 53 years Male chest pain, dyspnea COMPARISON: 09/24/2019. FINDINGS: Cardiac size is stable. There is a poor depth of inspiration. There is an ovoid area of density in the right upper to midlung field laterally which is new as compared to the prior. Given the patient's history of malignancy possibility of a metastatic lesion should be excluded. This measures 2 cm. Focal area of infiltrate could have a similar appearance. Suspect atelectasis in the lung bases bilaterally with small effusions. Recommend CT of the chest. IMPRESSION: Bilateral basilar atelectasis and pleural effusions 2 cm nodular density in the right midlung new when compared to prior studies. This may represent area of infiltrate but the possibility of metastatic focus is not excluded. Recommend CT
[2019-10-06 20:44] LABS: ALBUMIN 4.5 g/dL (3.5-5.0); ALKALINE PHOSPHATASE 128 U/L (38-126); ANION GAP 16 (5-19); ASPARTATE AMINO TRANSFERASE 89 U/L (17-59); BILIRUBIN,DIRECT 0.3 mg/dL (0.0-0.4); BILIRUBIN,TOTAL 1.1 mg/dL (0.2-1.3); BLOOD UREA NITROGEN 18 mg/dL (7-20); CALCIUM 9.4 mg/dL (8.4-10.2); CARBON DIOXIDE 25 mmol/L (22-30); CHLORIDE 94 mmol/L (98-107); GLUCOSE 100 mg/dL (75-110); POTASSIUM 4.8 mmol/L (3.6-5.0)
[2019-10-06 20:54] LABS: MEAN CORPUSCULAR VOLUME 85 fl (80-97)
[2019-10-06 20:56] LABS: ABSOLUTE LYMPHOCYTES# (MANUAL) 4.1 10^3/uL (0.5-4.7); ABSOLUTE MONOCYTES # (MANUAL) 0.6 10^3/uL (0.1-1.4); BASOPHILS % (MANUAL) 0 % (0-2); EOSINOPHILS % (MANUAL) 0 % (0-6); LYMPHOCYTES % (MANUAL) 14 % (13-45); MONOCYTES % (MANUAL) 2 % (3-13); SEGMENTED NEUTROPHILS % (MAN) 84 % (42-78); TOTAL CELLS COUNTED 100
[2019-10-06 20:58] LABS: ANISOCYTOSIS 2+; PLATELET COMMENT ADEQUATE; POLYCHROMASIA SLIGHT; TOXIC GRANULATION 1+
[2019-10-06] MEDS ORDERED: CEFTRIAXONE INJ 1000 MG VIAL IV ONE (21:25)
[2019-10-06] MEDS ORDERED: AZITHROMYCIN INJ 500 MG VIAL IV ONE ×2 (21:25→23:40)
[2019-10-06] MEDS ORDERED: HYDROMORPHONE HCL INJ/PF 2 MG/ML AMPULE IV ONE (21:26)
[2019-10-06] MEDS ORDERED: ONDANSETRON HCL INJ/PF 4 MG/2 ML SDV IV ONE (21:26)
[2019-10-06] MEDS ORDERED: ACETAMINOPHEN 325 MG TABLET PO ONE (22:38)
[2019-10-06] MEDS: NORMAL SALINE 1000 ML 1,000 ML IV PRN (23:05)
[2019-10-06] MEDS ORDERED: CEFTRIAXONE 1 GM/D5W RTU 1 GM/50 ML RTUPB IV ONE (23:10)
--- NOTE | 2019-10-06 23:13 | RADIOLOGY REPORT (SQ) ---
EXAM DESCRIPTION: CT CHEST ANGIOGRAPHY WITHOUT THEN WITH IV CONTRAST COMPLETED DATE/TME: 10/06/2019 21:18 CLINICAL HISTORY: 53 years, Male, dyspnea, lung cancer, eval mass, PE. creat 0.70 COMPARISON: PET/CT 07/28/2019. TECHNIQUE: 578 Images stored on PACS. All CT scanners at this facility use dose modulation, iterative reconstruction, and/or weight based dosing when appropriate to reduce radiation dose to as low as reasonably achievable (ALARA). Axial CTA images with coronal and sagittal MIPS [facility]: Dose Right [facility]: CareDose [facility]: Dose Right [facility]: Teradose 4D [facility]: ManagerComplete LIMITATIONS: None. FINDINGS: The mediastinal vasculature enhances normally. No filling defect to suggest pulmonary embolus. Negative for thoracic aortic aneurysm or dissection. Heart size is normal. Bulky mediastinal adenopathy, as well as partially visualized bilateral axillary adenopathy, also described previously. Limited evaluation of the upper abdomen shows partial visualization of an enlarged spleen measuring approximately 13 cm. Heterogeneously attenuating appearance to the spleen likely reflects phase of contrast. Osseous structures of the thorax are grossly intact. Small bilateral pleural effusions. No pneumothorax. Rather extensive patchy airspace opacities bilaterally, most of which have a groundglass appearance but some of which are somewhat nodular and more consolidative in appearance. The visualized airways are patent. IMPRESSION: Negative for pulmonary embolus, thoracic aortic aneurysm, or dissection. Extensive axillary and mediastinal adenopathy, also described previously. Small bilateral pleural effusions. Extensive patchy airspace opacities bilaterally predominantly having a groundglass appearance and likely reflecting pneumonia. Some of the opacities are somewhat nodular as well. While findings may reflect multifocal pneumonia, close follow-up following appropriate therapy is recommended. Metastatic disease is not excluded entirely. TECHNICAL DOCUMENTATION: Quality ID # 436: Final reports with documentation of one or more dose reduction techniques (e.g., Automated exposure control, adjustment of the mA and/or kV according to patient size, use of iterative reconstruction technique) copyright 2011 [employer]- All Rights Reserved
--- NOTE | 2019-10-06 23:31 | ER Document Report ---
ED General - General Chief Complaint: Shortness Of Breath Stated Complaint: CHEST WALL PAIN Time Seen by Provider: 10/06/19 19:50 Primary Care Provider: FABIANA LERMA MD [Primary Care Provider] - Follow up as needed TRAVEL OUTSIDE OF THE [place] IN LAST 30 DAYS: No - HPI Notes: Patient is a 53-year-old male with a history of a LL, recently diagnosed, who follows with Dr. Yoo. He presents to the emergency department for evaluation of left-sided chest pain, cough. He states he woke up this morning feel a bit short of breath. He developed left-sided chest pain, worse with deep breaths and palpation. He states it is sharp and stabbing. He states that shortly after that, at approximately 9 AM, he started coughing. He states he is been trying "hard not to cough because it hurts." He is not currently on chemotherapy. He does not have a primary care doctor. He has no fevers or chills to his knowledge, no nausea or vomiting. He has been eating and drinking normally. He does have some edema of his legs which he states is not new. - Related Data Allergies/Adverse Reactions: No Known Allergies Allergy (Verified 09/24/19 20:04) Past Medical History - General Information source: Patient - "Tach - Social History Smoking Status: Never Smoker Chew tobacco use (# tins/day): No Frequency of alcohol use: Occasional Drug Abuse: None Family History: None, Malignancy. denies: CAD, DM, Hypertension Patient has suicidal ideation: No Patient has homicidal ideation: No - Past Medical History Cardiac Medical History: Reports: Hx Hypertension Denies: Hx Atrial Fibrillation, Hx Coronary Artery Disease, Hx DVT, Hx Heart Attack, Hx Hypercholesterolemia, Hx Peripheral Vascular Disease, Hx Pulmonary Embolism Pulmonary Medical History: Reports: Hx Asthma, Hx Bronchitis, Hx COPD, Hx Pneumonia, Hx Respiratory Failure Neurological Medical History: Denies: Hx Seizures Endocrine Medical History: Denies: Hx Diabetes Mellitus Type 1, Hx Diabetes Mellitus Type 2, Hx Hyperthyroidism, Hx Hypothyroidism Renal/ Medical History: Denies: Hx End Stage Renal Disease, Hx Peritoneal Dialysis Malignancy Medical History: 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 GI Medical History: Denies: Hx Cirrhosis, Hx Crohn's Disease, Hx Gastroesophageal Reflux Disease, Hx Hiatal Hernia, Hx Ulcerative Colitis Musculoskeletal Medical History: Denies Hx Arthritis, Denies Hx Fibromyalgia, Denies Hx Gout, Reports Hx Musculoskeletal Trauma Skin Medical History: Denies Hx Eczema, Denies Hx Psoriasis Psychiatric Medical History: Reports: Hx Bipolar Disorder, Hx Depression Past Surgical History: Reports: Hx Kidney (Renal Surgery) - unilateral adrenalectomy 08/23, Hx Orthopedic Surgery - plate/screws in toe, Other - Left adrenalectomy - Immunizations Hx Diphtheria, Pertussis, Tetanus Vaccination: Yes Review of Systems - Review of Systems Constitutional: See HPI Cardiovascular: See HPI Respiratory: See HPI Musculoskeletal: See HPI -: Yes All other systems reviewed and negative Physical Exam - Vital signs Vitals: Temp Pulse Resp BP Pulse Ox 99.6 F 99 20 136/69 H 92 10/06/19 19:40 10/06/19 19:40 10/06/19 19:40 10/06/19 19:40 10/06/19 19:40 - Notes Notes: This is a 53-year-old male who appears his stated age in a mild amount of distress. He is tachypneic. Mildly tachycardic. Vital signs reviewed, please refer to chart. Head is normocephalic, atraumatic. Pupils equal round, reactive to light. Neck is supple without meningismus. Heart is regular rate and rhythm. Lungs are clear to auscultation bilaterally. Chest wall is markedly tender to palpation, no skin changes overlying. Abdomen is soft, nontender, normoactive bowel sounds throughout. Extremities without cyanosis, clubbing. He has 2+ pitting edema to bilateral lower extremities. Posterior calves are nontender. Peripheral pulses are equal. Skin is warm and dry. Patient is awake, alert, neurological exam is nonfocal. Course - Re-evaluation Re-evalutation: 10/06/19 23:28 Patient presents the emergency department for evaluation. He had laboratory investigations as ordered through triage. He developed a fever during the course of his stay, this was treated. Chest x-ray was concerning for pneumonia versus metastatic disease. CT angiogram of the chest was ordered. Patient was given IV fluids to cover for sepsis. Given his markedly elevated white blood cell count and concern for pneumonia, he was treated with Rocephin and Zithromax. Patient was given Dilaudid for his chest wall pain. Chest x-ray showed findings consistent with multifocal pneumonia versus mass. Given his fever and marked leukocytosis certainly pneumonia is highest on my differential. I spoke with Don Day, physician cosmetic sales assistant on-call. He will admit the patient on behalf of Dr. Patricia. - Vital Signs Vital signs: Temp Pulse Resp BP Pulse Ox 103.1 F H 99 26 H 129/74 H 96 10/06/19 22:39 10/06/19 19:40 10/06/19 23:01 10/06/19 23:01 10/06/19 23:01 - Laboratory Result Diagrams: 10/06/19 20:00 10/06/19 20:00 Laboratory results interpreted by me: 10/06/19 10/06/19 20:00 20:00 WBC 29.6 H Hgb 12.2 L Hct 37.5 L RDW 18.9 H Seg Neuts % (Manual) 84 H Monocytes % (Manual) 2 L Abs Neuts (Manual) 24.9 H Sodium 134.5 L Chloride 94 L AST 89 H ALT 92 H Alkaline Phosphatase 128 H - Diagnostic Test Radiology reviewed: Image reviewed, Reports reviewed Radiology results interpreted by me: 10/06/19 23:31 Chest X-Ray 10/06/19 19:54 IMPRESSION: Bilateral basilar atelectasis and pleural effusions 2 cm nodular density in the right midlung new when compared to prior studies. This may represent area of infiltrate but the possibility of metastatic focus is not excluded. Recommend CT Chest/Abdomen CTA 10/06/19 21:18 IMPRESSION: Negative for pulmonary embolus, thoracic aortic aneurysm, or dissection. Extensive axillary and mediastinal adenopathy, also described previously. Small bilateral pleural effusions. Extensive patchy airspace opacities bilaterally predominantly having a groundglass appearance and likely reflecting pneumonia. Some of the opacities are somewhat nodular as well. While findings may reflect multifocal pneumonia, close follow-up following appropriate therapy is recommended. Metastatic disease is not excluded entirely. TECHNICAL DOCUMENTATION: Quality ID # 436: Final reports with documentation of one or more dose reduction techniques (e.g., Automated exposure control, adjustment of the mA and/or kV according to patient size, use of iterative reconstruction technique) copyright 2011 [employer]- All Rights Reserved Discharge - Discharge Clinical Impression: Multifocal pneumonia, Chest wall pain Sepsis Qualifiers: Sepsis type: sepsis due to unspecified organism Sepsis acute organ dysfunction status: without acute organ dysfunction Qualified Code(s): A41.9 - Sepsis, unspecified organism Condition: Stable Disposition: ADMITTED INPATIENT Admitting Provider: [place] (Hospitalist) - [facility] Unit Admitted: [facility] Referrals: FABIANA LERMA MD [Primary Care Provider] - Follow up as needed
[2019-10-06] MEDS ORDERED: LORAZEPAM INJ 2 MG/1 ML VIAL IV ONE (23:51)
[2019-10-06] MEDS ORDERED: GUAIFENESIN SYRP 200 MG/10 ML UDC PO PRN (23:52)
[2019-10-07] MEDS ORDERED: OXYCODONE HCL IR 5 MG TABLET PO PRN (00:08)
[2019-10-07] MEDS ORDERED: LORAZEPAM 1 MG TABLET PO PRN (00:10)
--- NOTE | 2019-10-07 00:22 | PDOC H&P ---
History of Present Illness Admission Date/PCP: 10/06/19 23:48 FABIANA LERMA MD History of Present Illness: MELITA SETH is a 53 year old male who comes in with about a four 5-day h istory of increased shortness of breath, nonproductive cough, and a 1 to 2-day history of chills. Patient was just in the hospital and discharged on 09/28, for his adrenal insufficiency, that is post left adrenalectomy, hypermetabolic right adrenal gland. Patient also has a history of sarcoid of the lymph nodes and pancytopenia. Night patient comes in initially with a temperature of 99.6 however while in the emergency room this went up to 103. PA the chest shows probable pneumonia, patient's white count tonight is 29,600. Patient is however on p.o. prednisone, however in light of his fever chills and CT scan showing infiltrates this is probably based on his pneumonia as opposed to his steroids. Patient also complains of the cough and increased shortness of breath. Patient will be admitted to the hospital for gentle hydration as well as IV antibiotics. 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 GI Medical History: Denies: Cirrhosis, Crohn's Disease, Gastroesophageal Reflux Disease, Hiatal Hernia, Ulcerative Colitis Musculoskeltal Medical History: Denies: Arthritis, Fibromyalgia, Gout Skin Medical History: Denies: Eczema, Psoriasis Psychiatric Medical History: Reports: Bipolar Disorder, Depression Hematology: Denies: Anemia, Bleeding Tendencies, Heparin Induced Thrombocytopenia Past Surgical History Past Surgical History: Reports: Orthopedic Surgery - plate/screws in toe, Other - Left adrenalectomy Social History Smoking Status: Never Smoker Electronic Cigarette use?: No Frequency of Alcohol Use: Heavy Hx Recreational Drug Use: No Drugs: None Hx Prescription Drug Abuse: No - Advance Directive Resuscitation Status: Full Code Family History Family History: None, Malignancy. denies: CAD, DM, Hypertension Parental Family History Reviewed: No Children Family History Reviewed: No Sibling(s) Family History Reviewed.: No Medication/Allergy Home Medications: Hydroxyzine Pamoate [Vistaril 25 mg Capsule] 25 mg PO Q8HP PRN 09/25/19 Oxycodone HCl [Oxy-Ir 5 mg Tablet] 10 mg PO Q6HP PRN 09/25/19 Acetaminophen [Tylenol 325 mg Tablet] 650 mg PO Q4HP PRN tablet 09/28/19 Atenolol [Tenormin 50 mg Tablet] 12.5 mg PO DAILY 30 Days #30 tablet 09/28/19 Potassium Chloride [Klor-Con 10 Meq Tablet ER] 20 meq PO BID 30 Days #60 tablet.er 09/28/19 Prednisone 10 mg PO ASDIR 30 Days #105 tablet 09/28/19 Allergies/Adverse Reactions: No Known Allergies Allergy (Verified 09/24/19 20:04) Review of Systems Constitutional: PRESENT: chills, fatigue, fever(s), weakness Cardiovascular: ABSENT: chest pain, dyspnea on exertion, edema, orthropnea, palpitations Respiratory: PRESENT: cough, dyspnea Neurological: ABSENT: abnormal gait, abnormal speech, confusion, dizziness, focal weakness, syncope Psychiatric: ABSENT: anxiety, depression, homidical ideation, suicidal ideation Physical Exam Vital Signs: Temp Pulse Resp BP Pulse Ox 99.6 F 99 26 H 129/74 H 96 10/07/19 00:02 10/06/19 19:40 10/06/19 23:01 10/06/19 23:01 10/06/19 23:01 Intake & Output 10/05/19 10/06/19 10/07/19 06:59 06:59 06:59 Intake Total 50 Balance 50 Weight 60.328 kg General appearance: PRESENT: mild distress, other - Patient appears to be short of breath, although patient's oxygen saturation is between 97 and 100% on either 2 L or room air Respiratory exam: PRESENT: rhonchi, wheezes Cardiovascular exam: PRESENT: tachycardia Neurological exam: PRESENT: alert, awake, oriented to person, oriented to place, oriented to time, oriented to situation, CN II-XII grossly intact. ABSENT: motor sensory deficit Psychiatric exam: PRESENT: anxious Results Laboratory Results: 10/06/19 20:00 10/06/19 20:00 10/06/19 10/06/19 10/06/19 20:00 20:00 22:19 WBC 29.6 H RBC 4.39 Hgb 12.2 L Hct 37.5 L MCV 85 D MCH 27.8 MCHC 32.6 RDW 18.9 H Plt Count 341 Seg Neutrophils % Not Reportable Sodium 134.5 L Potassium 4.8 Chloride 94 L Carbon Dioxide 25 Anion Gap 16 BUN 18 Creatinine 0.70 Est GFR ( Amer) > 60 Glucose 100 Lactic Acid 2.0 Calcium 9.4 Total Bilirubin 1.1 AST 89 H Alkaline Phosphatase 128 H Total Protein 8.0 Albumin 4.5 10/06/19 20:00 Troponin I < 0.012 Impressions: Chest X-Ray 10/06/19 19:54 IMPRESSION: Bilateral basilar atelectasis and pleural effusions 2 cm nodular density in the right midlung new when compared to prior studies. This may represent area of infiltrate but the possibility of metastatic focus is not excluded. Recommend CT Chest/Abdomen CTA 10/06/19 21:18 IMPRESSION: Negative for pulmonary embolus, thoracic aortic aneurysm, or dissection. Extensive axillary and mediastinal adenopathy, also described previously. Small bilateral pleural effusions. Extensive patchy airspace opacities bilaterally predominantly having a groundglass appearance and likely reflecting pneumonia. Some of the opacities are somewhat nodular as well. While findings may reflect multifocal pneumonia, close follow-up following appropriate therapy is recommended. Metastatic disease is not excluded entirely. TECHNICAL DOCUMENTATION: Quality ID # [id number]: Final reports with documentation of one or more dose reduction techniques (e.g., Automated exposure control, adjustment of the mA and/or kV according to patient size, use of iterative reconstruction technique) copyright 2011 [employer]- All Rights Reserved Assessment and Plan - Diagnosis (1) Multifocal pneumonia Is this a current diagnosis for this admission?: Yes (2) Sepsis Qualifiers: Sepsis type: sepsis due to unspecified organism Sepsis acute organ dysfunction status: without acute organ dysfunction Qualified Code(s): A41.9 - Sepsis, unspecified organism Is this a current diagnosis for this admission?: Yes (3) Adrenal insufficiency Is this a current diagnosis for this admission?: Yes (4) Sarcoidosis of lymph nodes Is this a current diagnosis for this admission?: Yes (5) Leukocytosis Is this a current diagnosis for this admission?: Yes - Plan Summary Summary: Patient will be admitted to the hospital for gentle IV hydration, IV antibiotics, pulmonary toiletry. Patient will also be given something for anxiety as well as chest wall pain. Oncology will be consulted to see the patient during this hospitalization Patient is medically stable to transfer to the floor - Time Time Spent with patient: 35 or more minutes
[2019-10-07] MEDS ORDERED: FAMOTIDINE 20 MG TABLET PO ONE (00:30)
[2019-10-07] MEDS: IPRATROPIUM/ALBUTEROL 0.5-2.5 MG/3 ML AMPUL NEB PRN (00:46)
[2019-10-07] MEDS: NORMAL SALINE 1000 ML 1,000 ML IV PRN ×5 (01:05→21:31)
[2019-10-07 02:20] LABS: ARTERIAL BLOOD BASE EXCESS -0.7 mmol/L; ARTERIAL BLOOD H2CO3 1.18 mmol/L (1.05-1.35); ARTERIAL BLOOD HCO3 23.9 mmol/L (20-24); ARTERIAL BLOOD O2 SATURATION 92.8 % (94-98); ARTERIAL BLOOD PCO2 39.3 mmHg (35-45); ARTERIAL BLOOD PO2 64.9 mmHg (80-100); ARTERIAL BLOOD TOTAL CO2 25.1 mmol/L (23-27)
[2019-10-07 02:24] LABS: ARTERIAL BLOOD FIO2 4L
[2019-10-07] MEDS ORDERED: INFLUENZA QUAD (6MOS+) 2019-20 VAC 0.5 ML SYR IM ONE (02:33)
[2019-10-07] MEDS ORDERED: FUROSEMIDE INJ/PF 40 MG/4 ML SDV IV ONE (03:07)
[2019-10-07] MEDS: HYDROMORPHONE HCL 2 MG TABLET PO PRN ×2 (03:55→19:45)
[2019-10-07 04:52] LABS: HEMATOCRIT 33.2 % (37.9-51.0); HEMOGLOBIN 10.8 g/dL (13.5-17.0); MEAN CORPUSCULAR HEMOGLOBIN 27.8 pg (27.0-33.4); MEAN CORPUSCULAR HGB CONC 32.6 g/dL (32.0-36.0); MEAN CORPUSCULAR VOLUME 85 fl (80-97); PLATELET COUNT 248 10^3/uL (150-450); RED BLOOD COUNT 3.89 10^6/uL (4.35-5.55); RED CELL DISTRIBUTION WIDTH 18.9 % (11.5-14.0); WHITE BLOOD COUNT 27.8 10^3/uL (4.0-10.5)
[2019-10-07 05:18] LABS: ABSOLUTE LYMPHOCYTES# (MANUAL) 5.3 10^3/uL (0.5-4.7); ABSOLUTE MONOCYTES # (MANUAL) 0.6 10^3/uL (0.1-1.4); BAND NEUTROPHILS % (MANUAL) 3 % (3-5); BASOPHILS % (MANUAL) 0 % (0-2); EOSINOPHILS % (MANUAL) 0 % (0-6); LYMPHOCYTES % (MANUAL) 19 % (13-45); MONOCYTES % (MANUAL) 2 % (3-13); SEGMENTED NEUTROPHILS % (MAN) 76 % (42-78); TOTAL CELLS COUNTED 100
[2019-10-07 05:20] LABS: ANISOCYTOSIS 2+; PLATELET COMMENT ADEQUATE; POIKILOCYTOSIS SLIGHT; TEAR DROP CELLS SLIGHT
[2019-10-07] MEDS ORDERED: METHYLPREDNISOLONE INJ 125 MG/2 ML SDV ONE (05:30)
[2019-10-07] MEDS ORDERED: NORMAL SALINE 1000 ML 1,000 ML IV ONE (05:40)
[2019-10-07] MEDS ORDERED: METHYLPREDNISOLONE INJ 125 MG/2 ML SDV IV ONE (05:45)
--- NOTE | 2019-10-07 05:57 | PDOC PROGRESS REPORT ---
Subjective Progress Note for:: 10/07/19 Subjective:: Called to the patient's bedside acutely for increasing tachycardia and tachypnea. Reason For Visit: PNEUMONIA, LYMPHOMA, SHORTNESS OF BREATH, Physical Exam Vital Signs: Temp Pulse Resp BP Pulse Ox 99.2 F 123 H 20 96/57 L 93 10/07/19 00:57 10/07/19 02:00 10/07/19 00:57 10/07/19 00:57 10/07/19 00:57 Intake & Output 10/05/19 10/06/19 10/07/19 06:59 06:59 06:59 Intake Total 2049 Balance 2049 Weight 62.1 kg General appearance: PRESENT: severe distress Head exam: PRESENT: atraumatic, normocephalic Eye exam: PRESENT: conjunctiva pink. ABSENT: scleral icterus Ear exam: PRESENT: normal external ear exam. ABSENT: bleeding, drainage Respiratory exam: PRESENT: accessory muscle use, rales, symmetrical, tachypnea, wheezes - Expiratory wheezes, other - Very shallow inspiratory and expiratory phases. ABSENT: rhonchi Cardiovascular exam: PRESENT: +S1, +S2, tachycardia GI/Abdominal exam: PRESENT: distended, firm, normal bowel sounds, tenderness - Especially in the epigastric area. ABSENT: mass Rectal exam: PRESENT: deferred Gentrourinary exam: ABSENT: indwelling catheter Extremities exam: ABSENT: pedal edema Musculoskeletal exam: PRESENT: normal inspection. ABSENT: deformity Neurological exam: PRESENT: alert, awake, oriented to person, oriented to place, oriented to time, oriented to situation, CN II-XII grossly intact Psychiatric exam: PRESENT: unusual affect - Affect reflects his clinical di stress. ABSENT: agitated, anxious Results Laboratory Results: 10/07/19 04:16 10/06/19 20:00 10/06/19 10/06/19 10/06/19 20:00 20:00 22:19 WBC 29.6 H RBC 4.39 Hgb 12.2 L Hct 37.5 L MCV 85 D MCH 27.8 MCHC 32.6 RDW 18.9 H Plt Count 341 Seg Neutrophils % Not Reportable Carbonic Acid HCO3/H2CO3 Ratio ABG pH ABG pCO2 ABG pO2 ABG HCO3 ABG O2 Saturation ABG Base Excess FiO2 Sodium 134.5 L Potassium 4.8 Chloride 94 L Carbon Dioxide 25 Anion Gap 16 BUN 18 Creatinine 0.70 Est GFR ( Amer) > 60 Glucose 100 Lactic Acid 2.0 Calcium 9.4 Total Bilirubin 1.1 AST 89 H Alkaline Phosphatase 128 H Total Protein 8.0 Albumin 4.5 10/07/19 10/07/19 01:45 04:16 WBC 27.8 H RBC 3.89 L Hgb 10.8 L Hct 33.2 L MCV 85 MCH 27.8 MCHC 32.6 RDW 18.9 H Plt Count 248 Seg Neutrophils % Not Reportable Carbonic Acid 1.18 HCO3/H2CO3 Ratio 20:1 ABG pH 7.40 ABG pCO2 39.3 ABG pO2 64.9 L ABG HCO3 23.9 ABG O2 Saturation 92.8 L ABG Base Excess -0.7 FiO2 4L Sodium Potassium Chloride Carbon Dioxide Anion Gap BUN Creatinine Est GFR ( Amer) Glucose Lactic Acid Calcium Total Bilirubin AST Alkaline Phosphatase Total Protein Albumin 10/06/19 10/06/19 20:00 20:00 Troponin I < 0.012 NT-Pro-B Natriuret Pep 4000 H Impressions: Chest X-Ray 10/06/19 19:54 IMPRESSION: Bilateral basilar atelectasis and pleural effusions 2 cm nodular density in the right midlung new when compared to prior studies. This may represent area of infiltrate but the possibility of metastatic focus is not excluded. Recommend CT Chest/Abdomen CTA 10/06/19 21:18 IMPRESSION: Negative for pulmonary embolus, thoracic aortic aneurysm, or dissection. Extensive axillary and mediastinal adenopathy, also described previously. Small bilateral pleural effusions. Extensive patchy airspace opacities bilaterally predominantly having a groundglass appearance and likely reflecting pneumonia. Some of the opacities are somewhat nodular as well. While findings may reflect multifocal pneumonia, close follow-up following appropriate therapy is recommended. Metastatic disease is not excluded entirely. TECHNICAL DOCUMENTATION: Quality ID # 436: Final reports with documentation of one or more dose reduction techniques (e.g., Automated exposure control, adjustment of the mA and/or kV according to patient size, use of iterative reconstruction technique) copyright 2011 [employer]- All Rights Reserved Assessment and Plan - Diagnosis (1) Abdominal pain Qualifiers: Abdominal location: epigastric Qualified Code(s): R10.13 - Epigastric pain Is this a current diagnosis for this admission?: Yes (2) Tachypnea Is this a current diagnosis for this admission?: Yes (3) Tachycardia Is this a current diagnosis for this admission?: Yes - Plan Summary Summary: Patient will be admitted to the hospital for gentle IV hydration, IV antibiotics, pulmonary toiletry. Patient will also be given something for anxiety as well as chest wall pain. Oncology will be consulted to see the patient during this hospitalization Patient is medically stable to transfer to the floor 10/07/2019 5:45 AM Called to the patient's bedside for increasing tachycardia with respiratory distress. The patient has a distended firm abdomen. Bowel sounds are present. It is very tender. Lungs have sporadic expiratory wheezes with rales. Expiratory next Tory phases are extremely shallow. He states that it is the abdominal pain that is driving his current breathing pattern. He does have a history of lymphoma. He did have extensive bilateral groundglass appearance on imaging suggesting a multifocal pneumonia. He does have a history of lymphoma as well. I have ordered marker 25 mg of Solu-Medrol IV x1 dose. In addition a liter bolus of saline and will obtain a stat CT scan of the abdomen and pelvis. I have added liver panel and lipase to today's blood work as well. ABG on 4 L nasal cannula revealed oxygen saturation of 92% and no elevation of PCO2. pH was 7.40. Tachypnea certainly could be driven by an intra-abdominal process. Clearly he has bilateral pneumonia. He is on azithromycin and Rocephin. Weight results of the CT scan and today's blood work. - Time Total Critical Time (Minutes): 40 Medications reviewed and adjusted accordingly: Yes
[2019-10-07 05:58] LABS: ALBUMIN 3.2 g/dL (3.5-5.0); ALKALINE PHOSPHATASE 97 U/L (38-126); ASPARTATE AMINO TRANSFERASE 47 U/L (17-59); BILIRUBIN,DIRECT 0.2 mg/dL (0.0-0.4); BILIRUBIN,TOTAL 0.8 mg/dL (0.2-1.3)
--- NOTE | 2019-10-07 06:38 | RADIOLOGY REPORT (SQ) ---
CT ABDOMEN AND PELVIS WITHOUT INTRAVENOUS CONTRAST: 10/07/2019 5:30 AM COMPUTED TOMOGRAPHY SCANNER OPERATOR HISTORY: 83-year old with acute onset of abdominal pain, malignancy of the right adrenal gland. COMPARISON: PET/CT from 07/28/2019 TECHNIQUE: Axial contiguous images were obtained from the lung bases to the proximal femurs without oral or intravenous contrast administered. Sagittal and coronal reconstructions were also obtained and reviewed. This exam was performed according to our departmental dose-optimization program, which includes automated exposure control, adjustment of the mA and/or KV according to the patient's size and/or use of iterative reconstruction technique. FINDINGS: There are small bilateral pleural effusions with overlying airspace opacities. Many of these have a nodular appearance. These are worrisome for infection. Trace pericardial fluid is seen. The cardiac silhouette is at the upper limits of normal in size. There is a subcarinal lymph node partially visualized which measures at least 1.8 cm in short axis dimension. Evaluation of the solid organs is limited by the lack of intravenous contrast. The visualized hepatic parenchyma is unremarkable. There is increased density within the gallbladder lumen, likely from vicarious excretion or sludge. The pancreas and adrenals are normal in size and contour. The spleen is enlarged and measures at least 14 cm in length. There is some ill-defined nodularity at the adrenal gland The kidneys demonstrate no evidence of hydronephrosis. There is persistent excretion of contrast from the kidneys from prior CT imaging. The urinary bladder is mildly distended with some contrast. The stomach is not well distended. The small bowel loops appear unremarkable. No pericolonic inflammatory stranding is seen. There is no evidence of pneumoperitoneum or free fluid. The aorta and IVC appear normal in size. There are some shotty retroperitoneal lymph nodes measuring up to 9-10 mm in short axis. These are also seen extending along the iliac chains. Prominent external iliac chain lymph nodes measure up to 3.8 cm in short axis dimension. Prominent inguinal lymph nodes measure up to 1.4 cm in short axis dimension. Review of the bone show no evidence of any suspicious lytic or blastic lesions. Multilevel degenerative changes are seen within the lumbar spine. There is some reticulation within the subcutaneous soft tissues suggesting anasarca/edema. IMPRESSION: No acute process is seen within the abdomen or pelvis. Extensive adenopathy is again seen at the bilateral inguinal, retroperitoneal, pelvic lymph nodes. Mild splenomegaly is also noted.
--- NOTE | 2019-10-07 07:29 | EKG REPORT ---
SEVERITY:- OTHERWISE NORMAL ECG - SINUS RHYTHM BORDERLINE RIGHT AXIS DEVIATION : Confirmed by: Atilio Bush MD 07-Oct-2019 07:28:47
[2019-10-07 08:04] LABS: APPEARANCE,URINE CLEAR; BILIRUBIN,URINE NEGATIVE (NEGATIVE); COLOR,URINE YELLOW; GLUCOSE, URINE NEGATIVE (NEGATIVE); KETONES,URINE NEGATIVE (NEGATIVE); LEUKOCYTE ESTERASE,URINE NEGATIVE (NEGATIVE); NITRITE,URINE NEGATIVE (NEGATIVE); PROTEIN,URINE 30 mg/dL (NEGATIVE); URINE SPECIFIC GRAVITY 1.049; UROBILINOGEN,URINE NEGATIVE mg/dL (<2.0)
--- NOTE | 2019-10-07 08:58 | PDOC CONSULTATION ---
Consultation Consult Date: 10/07/19 Attending physician:: DONNA DUONG Provider Consulted: THOMAS NEGRO Consult reason:: Patient well-known to oncology clinic with newly diagnosed T- cell lymphoma History of Present Illness Admission Date/PCP: 10/06/19 23:48 FABIANA LERMA MD Patient complains of: Worsening shortness of breath, fever, upper abdominal pain History of Present Illness: MELITA SETH is a 53 year old male with recently diagnosed T-cell lymphoma, initially he was being worked up for the possibility of sarcoidosis. 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 We are planning on initiating a chemotherapy regimen for him. We discussed all these new findings with him yesterday and he came to our office and it was slightly short of breath but afebrile and much better than when he was in the hospital. However, on the way home he began having increasing shortness of breath with tachypnea, ultimately felt like he could not get out of bed and had fever up to 103, and he presented to the ED, he was admitted in this morning he is increasingly short of breath but O2 sat is appropriate on 5 L. He is very hypotensive thus he is being transferred to the ICU. 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 GI Medical History: Denies: Cirrhosis, Crohn's Disease, Gastroesophageal Reflux Disease, Hiatal Hernia, Ulcerative Colitis Musculoskeltal Medical History: Denies: Arthritis, Fibromyalgia, Gout Skin Medical History: Denies: Eczema, Psoriasis Psychiatric Medical History: Reports: Bipolar Disorder, Depression Hematology: Denies: Anemia, Bleeding Tendencies, Heparin Induced Thrombocytopenia Past Surgical History Past Surgical History: Reports: Orthopedic Surgery - plate/screws in toe, Other - Left adrenalectomy Social History Information Source: Patient Smoking Status: Never Smoker Electronic Cigarette use?: No Frequency of Alcohol Use: None Hx Recreational Drug Use: No Drugs: None Hx Prescription Drug Abuse: No - Advance Directive Resuscitation Status: Full Code Family History Family History: None, Malignancy. denies: CAD, DM, Hypertension Parental Family History Reviewed: Yes Children Family History Reviewed: Yes Sibling(s) Family History Reviewed.: Yes Medication/Allergy Home Medications: Hydroxyzine Pamoate [Vistaril 25 mg Capsule] 25 mg PO Q8HP PRN 09/25/19 Potassium Chloride [Klor-Con 10 Meq Tablet ER] 20 meq PO BID 30 Days #60 table t.er 09/28/19 Prednisone 10 mg PO ASDIR 30 Days #105 tablet 09/28/19 Atenolol [Tenormin] 12.5 mg PO DAILY 10/07/19 Hydrocodone/Acetaminophen [[place] 5-325 Tablet] 1 each PO Q6HP PRN 10/07/19 Allergies/Adverse Reactions: No Known Allergies Allergy (Verified 09/24/19 20:04) Review of Systems Constitutional: ABSENT: chills, fever(s), headache(s), weight gain, weight loss Eyes: ABSENT: visual disturbances Ears: ABSENT: hearing changes Cardiovascular: ABSENT: chest pain, dyspnea on exertion, edema, orthropnea, palpitations Respiratory: ABSENT: cough, hemoptysis Gastrointestinal: ABSENT: abdominal pain, constipation, diarrhea, hematemesis, hematochezia, nausea, vomiting Genitourinary: ABSENT: dysuria, hematuria Musculoskeletal: ABSENT: joint swelling Integumentary: ABSENT: rash, wounds Neurological: ABSENT: abnormal gait, abnormal speech, confusion, dizziness, focal weakness, syncope Psychiatric: ABSENT: anxiety, depression, homidical ideation, suicidal ideation Endocrine: ABSENT: cold intolerance, heat intolerance, polydipsia, polyuria Hematologic/Lymphatic: ABSENT: easy bleeding, easy bruising Physical Exam Vital Signs: Temp Pulse Resp BP Pulse Ox 99.4 F 123 H 30 H 80/45 L 81 L 10/07/19 05:10 10/07/19 07:00 10/07/19 05:10 10/07/19 05:10 10/07/19 05:10 Intake & Output 10/06/19 10/07/19 10/08/19 06:59 06:59 06:59 Intake Total 2049 1000 Output Total 0 Balance 2049 1000 Weight 62.1 kg General appearance: PRESENT: no acute distress, well-developed, well-nourished Head exam: PRESENT: atraumatic, normocephalic Eye exam: PRESENT: conjunctiva pink, EOMI, PERRLA. ABSENT: scleral icterus Ear exam: PRESENT: normal external ear exam Mouth exam: PRESENT: moist, tongue midline Neck exam: ABSENT: carotid bruit, JVD, lymphadenopathy, thyromegaly Respiratory exam: PRESENT: clear to auscultation ramila. ABSENT: rales, rhonchi, wheezes Cardiovascular exam: PRESENT: RRR. ABSENT: diastolic murmur, rubs, systolic murmur Pulses: PRESENT: normal dorsalis pedis pul Vascular exam: PRESENT: normal capillary refill GI/Abdominal exam: PRESENT: normal bowel sounds, soft. ABSENT: distended, guarding, mass, organolmegaly, rebound, tenderness Rectal exam: PRESENT: deferred Extremities exam: PRESENT: full ROM. ABSENT: calf tenderness, clubbing, pedal edema Neurological exam: PRESENT: alert, awake, oriented to person, oriented to place, oriented to time, oriented to situation, CN II-XII grossly intact. ABSENT: motor sensory deficit Psychiatric exam: PRESENT: appropriate affect, normal mood. ABSENT: homicidal ideation, suicidal ideation Skin exam: PRESENT: dry, intact, warm. ABSENT: cyanosis, rash Results Laboratory Results: 10/07/19 04:16 10/06/19 20:00 10/06/19 10/06/19 10/06/19 20:00 20:00 22:19 WBC 29.6 H RBC 4.39 Hgb 12.2 L Hct 37.5 L MCV 85 D MCH 27.8 MCHC 32.6 RDW 18.9 H Plt Count 341 Seg Neutrophils % Not Reportable Carbonic Acid HCO3/H2CO3 Ratio ABG pH ABG pCO2 ABG pO2 ABG HCO3 ABG O2 Saturation ABG Base Excess FiO2 Sodium 134.5 L Potassium 4.8 Chloride 94 L Carbon Dioxide 25 Anion Gap 16 BUN 18 Creatinine 0.70 Est GFR ( Amer) > 60 Glucose 100 Lactic Acid 2.0 Calcium 9.4 Total Bilirubin 1.1 AST 89 H Alkaline Phosphatase 128 H Total Protein 8.0 Albumin 4.5 Lipase Urine Color Urine Appearance Urine pH Ur Specific [place] Urine Protein Urine Glucose (UA) Urine Ketones Urine Blood Urine Nitrite Ur Leukocyte Esterase Urine WBC (Auto) Urine RBC (Auto) 10/07/19 10/07/19 10/07/19 01:45 04:16 04:16 WBC 27.8 H RBC 3.89 L Hgb 10.8 L Hct 33.2 L MCV 85 MCH 27.8 MCHC 32.6 RDW 18.9 H Plt Count 248 Seg Neutrophils % Not Reportable Carbonic Acid 1.18 HCO3/H2CO3 Ratio 20:1 ABG pH 7.40 ABG pCO2 39.3 ABG pO2 64.9 L ABG HCO3 23.9 ABG O2 Saturation 92.8 L ABG Base Excess -0.7 FiO2 4L Sodium Potassium Chloride Carbon Dioxide Anion Gap BUN Creatinine Est GFR ( Amer) Glucose Lactic Acid Calcium Total Bilirubin 0.8 AST 47 Alkaline Phosphatase 97 Total Protein 6.0 L Albumin 3.2 L Lipase Urine Color Urine Appearance Urine pH Ur Specific [place] Urine Protein Urine Glucose (UA) Urine Ketones Urine Blood Urine Nitrite Ur Leukocyte Esterase Urine WBC (Auto) Urine RBC (Auto) 10/07/19 10/07/19 04:16 07:35 WBC RBC Hgb Hct MCV MCH MCHC RDW Plt Count Seg Neutrophils % Carbonic Acid HCO3/H2CO3 Ratio ABG pH ABG pCO2 ABG pO2 ABG HCO3 ABG O2 Saturation ABG Base Excess FiO2 Sodium Potassium Chloride Carbon Dioxide Anion Gap BUN Creatinine Est GFR ( Amer) Glucose Lactic Acid Calcium Total Bilirubin AST Alkaline Phosphatase Total Protein Albumin Lipase 26.4 Urine Color YELLOW Urine Appearance CLEAR Urine pH 6.0 Ur Specific [place] 1.049 Urine Protein 30 H Urine Glucose (UA) NEGATIVE Urine Ketones NEGATIVE Urine Blood NEGATIVE Urine Nitrite NEGATIVE Ur Leukocyte Esterase NEGATIVE Urine WBC (Auto) 0 Urine RBC (Auto) 1 10/06/19 10/06/19 20:00 20:00 Troponin I < 0.012 NT-Pro-B Natriuret Pep 4000 H Impressions: Chest X-Ray 10/06/19 19:54 IMPRESSION: Bilateral basilar atelectasis and pleural effusions 2 cm nodular density in the right midlung new when compared to prior studies. This may represent area of infiltrate but the possibility of metastatic focus is not excluded. Recommend CT Chest/Abdomen CTA 10/06/19 21:18 IMPRESSION: Negative for pulmonary embolus, thoracic aortic aneurysm, or dissection. Extensive axillary and mediastinal adenopathy, also described previously. Small bilateral pleural effusions. Extensive patchy airspace opacities bilaterally predominantly having a groundglass appearance and likely reflecting pneumonia. Some of the opacities are somewhat nodular as well. While findings may reflect multifocal pneumonia, close follow-up following appropriate therapy is recommended. Metastatic disease is not excluded entirely. TECHNICAL DOCUMENTATION: Quality ID # [id number]: Final reports with documentation of one or more dose reduction techniques (e.g., Automated exposure control, adjustment of the mA and/or kV according to patient size, use of iterative reconstruction technique) copyright 2011 [employer]- All Rights Reserved Abdomen/Pelvis CT 10/07/19 00:00 IMPRESSION: No acute process is seen within the abdomen or pelvis. Extensive adenopathy is again seen at the bilateral inguinal, retroperitoneal, pelvic lymph nodes. Mild splenomegaly is also noted. Status: Image reviewed by me Assessment & Plan - Diagnosis (1) Multifocal pneumonia Is this a current diagnosis for this admission?: Yes Plan: It very well could be a multifocal pneumonia, he does have bulky mediastinal adenopathy that may cause some postobstructive component. Agree with transfer to the ICU for more aggressive care. 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 We will follow closely. (3) Leukocytosis Qualifiers: Leukocytosis type: bandemia Qualified Code(s): D72.825 - Bandemia Is this a current diagnosis for this admission?: Yes Plan: Related in part to steroid use he is on prednisone 100 mg daily. But some part may be pneumonia. So agree with antibiotics. - Time Time Spent: Greater than 70 Minutes
[2019-10-07] MEDS ORDERED: PREDNISONE 20 MG TABLET PO SCH (10:00)
[2019-10-07] MEDS ORDERED: VANCOMYCIN HCL 0 MG in DEXTROSE 5%-WATER 250 ML IV NR (10:30)
[2019-10-07 11:04] LABS: ANION GAP 13 (5-19); BLOOD UREA NITROGEN 22 mg/dL (7-20); CALCIUM 7.5 mg/dL (8.4-10.2); CARBON DIOXIDE 21 mmol/L (22-30); CHLORIDE 98 mmol/L (98-107); GLUCOSE 104 mg/dL (75-110); POTASSIUM 4.3 mmol/L (3.6-5.0)
--- NOTE | 2019-10-07 11:18 | Progress Note ---
Provider Note Provider Note: 10/07/2019 Patient was discussed throughout the night with nursing staff. Patient became hypotensive and more tachypneic early this morning. Patient had received over 3 L of fluid but only diuresed 250 cc. Patient was adequately being covered for his adrenal insufficiency with steroids and still having respiratory difficulty I called the outside repairer special who after consulting over the phone agreed that this patient should be transferred to the ICU for more aggressive therapy. Patient was asked once again this morning his CODE STATUS and he wants to continue being a full code
[2019-10-07] MEDS: ATENOLOL 50 MG TABLET PO SCH (11:35)
[2019-10-07] MEDS: FAMOTIDINE 20 MG TABLET PO SCH ×2 (11:35→21:26)
[2019-10-07] MEDS: ENOXAPARIN SODIUM INJ 40 MG/0.4 ML DISP.SYRIN SUBCUT SCH (11:35)
--- NOTE | 2019-10-07 11:41 | RADIOLOGY REPORT (SQ) ---
EXAM DESCRIPTION: U/S ABDOMEN LIMITED W/O DOP COMPLETED DATE/TIME: 10/07/2019 11:08 am REASON FOR STUDY: RUQ pain COMPARISON: CT of the abdomen and pelvis without contrast from 10/07/2019. TECHNIQUE: Dynamic and static grayscale images acquired of the abdomen and recorded on PACS. Additio nal selected color Doppler and spectral images recorded. LIMITATIONS: None. FINDINGS: PANCREAS: The visualized portions of the pancreatic head are appear normal. The pancreati c body and tail are obscured by overlying bowel. LIVER: Normal contour and echotexture. LIVER VASCULATURE: Hepatopetal directional flow within the portal veins. GALLBLADDER: The gallbladder wall measures 2.4 mm. There is no cholelithiasis, sludge or pericholecy stic fluid. ULTRASOUND-DETECTED ESPINO'S SIGN: Negative. INTRAHEPATIC DUCTS AND COMMON DUCT: The common bile duct measures 3.5 mm in diameter. The intrahepat ic bile ducts are normal in caliber. INFERIOR VENA CAVA: Patent. AORTA: No aneurysm. RIGHT KIDNEY: The right kidney measures 10.5 cm and length. There is no hydronephrosis. PERITONEAL AND RIGHT PLEURAL SPACE: Right pleural effusion. OTHER: No other finding. IMPRESSION: 1. Limited visualization of the pancreas. 2. No abnormality of the liver, gallbladder and right kidney. 3. Right pleural effusion. TECHNICAL DOCUMENTATION: JOB ID: [id number] 2010 [employer]- All Rights Reserved Reading location - IP/workstation name: [email or web address]
[2019-10-07] MEDS: VANCOMYCIN HCL 1,000 MG in DEXTROSE 5%-WATER 250 ML IV SCH (13:26)
[2019-10-07] MEDS: CLINDAMYCIN 900 MG/D5W RTU 900 MG/50 ML RTUPB IV SCH ×2 (13:26→18:32)
--- NOTE | 2019-10-07 15:20 | RADIOLOGY REPORT (SQ) ---
EXAM DESCRIPTION: FOOT LEFT COMPLETE COMPLETED DATE/TIME: 10/07/2019 2:52 pm REASON FOR STUDY: Abscess COMPARISON: None. NUMBER OF VIEWS: Three views. TECHNIQUE: AP, lateral and oblique radiographic images acquired of the left foot. LIMITATIONS: None. FINDINGS: MINERALIZATION: Normal. BONES: The lucencies around the arthrodesis hardware that transfix the 1st MTP joint are unchanged. There is no periprosthetic fracture. JOINTS: The normal tarsometatarsal alignment is preserved. SOFT TISSUES: Soft tissue swelling along the dorsal aspect of the foot. OTHER: No other finding. IMPRESSION: 1. Arthrodesis hardware that transfixes the 1st MTP joint. There is no periprosthetic f racture. 2. Dorsal soft tissue swelling. TECHNICAL DOCUMENTATION: JOB ID: [id number] 2010 [employer]- All Rights Reserved Reading location - IP/workstation name: [email or web address]
--- NOTE | 2019-10-07 16:39 | XCELERA REPORT ---
[address] [address] Transthoracic Echocardiogram Report Name: MELITA SETH Age: 53 yrs Gender: Male : 1965 Patient Status: Inpatient Patient Location: ICU^609^A Study Date: 10/07/2019 01:19 PM Procedure: A complete two-dimensional transthoracic echocardiogram was performed (2D, M-mode, spectral and color flow Doppler). The study was technically adequate with some images being suboptimal in quality. Reason For Study: Dyspnea, elevated BNP, lymphoma Ordering Physician: GUILHERME COURTNEY Performed By: Nighat Brown Interpretation Summary LV EF is 45% There is normal left ventricular wall thickness. The left ventricle is grossly normal size. Doppler measurements suggest impaired left ventricular relaxation, which is associated with grade I/IV or mild diastolic dysfunction There is mild global hypokinesis of the left ventricle. The right ventricular systolic function is borderline reduced. The right ventricle is mildly dilated. The left atrium is borderline dilated. Borderline right atrial enlargement. There is a trace amount of mitral regurgitation There is no mitral valve stenosis. No aortic regurgitation is present. There is no aortic valve stenosis There is a mild amount of tricuspid regurgitation Right ventricular systolic pressure is estimated to be within upper limit of normal. There is a trace amount of pulmonic regurgitation There is no pulmonic valvular stenosis. The aortic root is not well visualized but is probably normal size. The inferior vena cava appeared normal and decreased > 50% with respiration (RAP 5-10 mmHg) There is no pericardial effusion. MMode/2D Measurements & Calculations RVDd: 2.1 cm LVIDd: 4.5 cm FS: 23.0 % Ao root diam: 2.5 cm IVSd: 0.72 cm LVIDs: 3.5 cm EDV(Teich): 94.2 ml Ao root area: 4.8 cm2 LVPWd: 0.78 cm ESV(Teich): 50.6 ml EF(Teich): 46.2 % LVOT diam: 1.9 cm LVOT area: 2.7 cm2 Doppler Measurements & Calculations MV E max bella: MV dec slope: Ao V2 max: LV V1 max P.0 cm/sec 94.6 cm/sec 2.2 mmHg MV A max bella: 719.9 cm/sec2 Ao max P.6 mmHgLV V1 max: 58.3 cm/sec MV dec time: 0.11 sec 73.4 cm/sec MV E/A: 1.3 ZULAY(V,D): 2.1 cm2 PA V2 max: PI end-d bella: TR max bella: 62.9 cm/sec 128.6 cm/sec 220.1 cm/sec PA max P.6 mmHg TR max P.6 mmHg Left Ventricle The left ventricle is grossly normal size. There is normal left ventricular wall thickness. LV EF is 45%. Doppler measurements suggest impaired left ventricular relaxation, which is associated with grade I/IV or mild diastolic dysfunction. There is mild global hypokinesis of the left ventricle. Right Ventricle The right ventricle is mildly dilated. There is normal right ventricular wall thickness. The right ventricular systolic function is borderline reduced. Atria Borderline right atrial enlargement. The left atrium is borderline dilated. Interarterial septum not well visualized and not well dopplered. Cannot comment on ASD/PFO presence. Mitral Valve The mitral valve is grossly normal. There is no mitral valve stenosis. There is a trace amount of mitral regurgitation. Aortic Valve The aortic valve is grossly normal. There is no aortic valve stenosis. No aortic regurgitation is present. Tricuspid Valve The tricuspid valve is not well visualized, but is grossly normal. There is no tricuspid stenosis. There is a mild amount of tricuspid regurgitation. Right ventricular systolic pressure is estimated to be within upper limit of normal. Pulmonic Valve The pulmonic valve is not well seen, but is grossly normal. There is no pulmonic valvular stenosis. There is a trace amount of pulmonic regurgitation. Great Vessels The aortic root is not well visualized but is probably normal size. The inferior vena cava appeared normal and decreased > 50% with respiration (RAP 5-10 mmHg). Effusions There is no pericardial effusion. : GUILHERME COURTNEY Shyamal
--- NOTE | 2019-10-07 18:04 | PDOC CRITICAL CARE PROG REPORT ---
General Date:: 10/07/19 ICU Day:: 1 Hospital Day:: 2 Resuscitation Status: Full Code Events in the past 12 to 24 Hours:: This 53-year-old male non-smoker is seen in consultation at the request of Dr. Noel Patricia for recommendations on further evaluation and management of hypotension. The patient was admitted overnight with complaints of increased shortness of breath, nonproductive cough and 1 to 2 days of chills. The patient reports that he went to the grocery store with a family member on the day prior to presentation and was unable to walk up and down the grocery [place]. He denies chest pain. He endorses cough without sputum production. He denies wheezing. He denies fever (although he does have a documented T-max of 1 03 in the emergency department). He denies sick contacts. 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 He has no history of chemotherapy or radiation therapy. This is a new diagnosis. REVIEW OF SYSTEMS: Constitutional: Fever, chills, fatigue, weakness ENT: Denies postnasal drip. Denies rhinitis. Denies rhinorrhea. Denies sinus tenderness. No sore throat. Respiratory: Exertional dyspnea, cough. No hemoptysis. No sputum production. Recent treatment for pneumonia. Cardiovascular: Severe exertional dyspnea. No chest pain. No orthopnea. No palpitations. No presyncope or syncope. Hematologic: New diagnosis of T-cell lymphoma. Gastrointestinal: No nausea. No vomiting. No diarrhea. Skin: Diffuse scattered macular hypopigmented lesions (reported by the patient as remnants of prior scabies infestation). No abnormal bruising. No abnormal bleeding. Neurologic: Left foot pain. No focal weakness. No dizziness. No confusion. No change in mental status. No seizures. Psychiatric: No change in mood. Denies anxiety/depression. Denies hallucinatio ns. PAST MEDICAL HISTORY: * New diagnosis of T-cell lymphoma * Hypertension * Asthma * COPD/chronic bronchitis * Pneumonia * Respiratory failure * Bipolar disorder * Depression PAST SURGICAL HISTORY: * Orthopedic surgery (left great toe) * Left adrenalectomy SOCIAL HISTORY: * Occupational: He is out of work. He used to work with asphalt. * Smoking: Lifetime non-smoker. * Alcohol: Estimates that he drinks approximately 48 ounces of beer daily. Denies history of alcohol withdrawal. * Illicit drugs: Denies. FAMILY HISTORY: Family history reviewed. Noncontributory. ALLERGIES: No known drug allergies. Home Medications: * Vistaril 25 mg p.o. every 8 hours as needed * OxyIR 10 mg p.o. every 6 hours as needed * Tylenol 650 mg p.o. every 4 hours as needed * Tenormin 12.5 mg p.o. daily * Klor-Con 10 mEq tablet ER 20 mEq p.o. twice daily * Prednisone taper Review of systems relevant to events:: Constitutional, respiratory, cardiovascular, GI, hematologic Reason for ICU Addmission:: Hypotension - Medications: Medications reviewed and adjusted accordingly: Yes Vasopressors:: None Sedation:: None. Physical Exam Vital Signs: Temp Pulse Resp BP Pulse Ox 98.0 F 118 H 24 H 82/57 L 98 10/07/19 08:58 10/07/19 08:58 10/07/19 08:58 10/07/19 08:58 10/07/19 08:58 Intake & Output 10/06/19 10/07/19 10/08/19 06:59 06:59 06:59 Intake Total 2049 1000 Output Total 0 Balance 2049 1000 Weight 62.1 kg Weight/Height Weight 62.1 kg Height 1.52 m General appearance: PRESENT: no acute distress, well-developed, well-nourished Head exam: PRESENT: atraumatic, normocephalic Eye exam: PRESENT: conjunctiva pink, EOMI, PERRLA. ABSENT: scleral icterus Mouth exam: PRESENT: dry mucosa, tongue midline Neck exam: ABSENT: carotid bruit, JVD, lymphadenopathy, thyromegaly Respiratory exam: PRESENT: clear to auscultation ramila, crackles - Diffuse, bilateral, rhonchi - Scattered Cardiovascular exam: PRESENT: RRR. ABSENT: diastolic murmur, rubs, systolic murmur Pulses: PRESENT: normal dorsalis pedis pul GI/Abdominal exam: PRESENT: normal bowel sounds, soft. ABSENT: distended, guarding, mass, organolmegaly, rebound, tenderness Rectal exam: ABSENT: bloody stool, heme (+) stool Extremities exam: PRESENT: full ROM, pedal edema, tenderness - Left lower extremity, +2 edema, other - Plantar surface of the left heel suggests a puncture wound and associated swelling, possible abscess. Right axillary nodular pea-sized mass.. ABSENT: calf tenderness, clubbing Musculoskeletal exam: PRESENT: normal inspection Neurological exam: PRESENT: awake, oriented to person, oriented to place, oriented to time, oriented to situation, CN II-XII grossly intact, other - Somnolent, easily falls asleep during clinical interview.. ABSENT: motor sensory deficit Psychiatric exam: PRESENT: appropriate affect, normal mood. ABSENT: agitated, anxious, homicidal ideation, suicidal ideation Skin exam: PRESENT: other - Left heel lesion (as described above in extremities). Left foot is warm to the touch and tender up to mid tibia.. ABSENT: cyanosis Laboratory/Radiographs Laboratory Results: 10/07/19 04:16 10/06/19 20:00 10/06/19 10/06/19 10/06/19 20:00 20:00 22:19 WBC 29.6 H RBC 4.39 Hgb 12.2 L Hct 37.5 L MCV 85 D MCH 27.8 MCHC 32.6 RDW 18.9 H Plt Count 341 Seg Neutrophils % Not Reportable Carbonic Acid HCO3/H2CO3 Ratio ABG pH ABG pCO2 ABG pO2 ABG HCO3 ABG O2 Saturation ABG Base Excess FiO2 Sodium 134.5 L Potassium 4.8 Chloride 94 L Carbon Dioxide 25 Anion Gap 16 BUN 18 Creatinine 0.70 Est GFR ( Amer) > 60 Glucose 100 Lactic Acid 2.0 Calcium 9.4 Total Bilirubin 1.1 AST 89 H Alkaline Phosphatase 128 H Total Protein 8.0 Albumin 4.5 Lipase Urine Color Urine Appearance Urine pH Ur Specific [place] Urine Protein Urine Glucose (UA) Urine Ketones Urine Blood Urine Nitrite Ur Leukocyte Esterase Urine WBC (Auto) Urine RBC (Auto) 10/07/19 10/07/19 10/07/19 01:45 04:16 04:16 WBC 27.8 H RBC 3.89 L Hgb 10.8 L Hct 33.2 L MCV 85 MCH 27.8 MCHC 32.6 RDW 18.9 H Plt Count 248 Seg Neutrophils % Not Reportable Carbonic Acid 1.18 HCO3/H2CO3 Ratio 20:1 ABG pH 7.40 ABG pCO2 39.3 ABG pO2 64.9 L ABG HCO3 23.9 ABG O2 Saturation 92.8 L ABG Base Excess -0.7 FiO2 4L Sodium Potassium Chloride Carbon Dioxide Anion Gap BUN Creatinine Est GFR ( Amer) Glucose Lactic Acid Calcium Total Bilirubin 0.8 AST 47 Alkaline Phosphatase 97 Total Protein 6.0 L Albumin 3.2 L Lipase Urine Color Urine Appearance Urine pH Ur Specific [place] Urine Protein Urine Glucose (UA) Urine Ketones Urine Blood Urine Nitrite Ur Leukocyte Esterase Urine WBC (Auto) Urine RBC (Auto) 10/07/19 10/07/19 04:16 07:35 WBC RBC Hgb Hct MCV MCH MCHC RDW Plt Count Seg Neutrophils % Carbonic Acid HCO3/H2CO3 Ratio ABG pH ABG pCO2 ABG pO2 ABG HCO3 ABG O2 Saturation ABG Base Excess FiO2 Sodium Potassium Chloride Carbon Dioxide Anion Gap BUN Creatinine Est GFR ( Amer) Glucose Lactic Acid Calcium Total Bilirubin AST Alkaline Phosphatase Total Protein Albumin Lipase 26.4 Urine Color YELLOW Urine Appearance CLEAR Urine pH 6.0 Ur Specific [place] 1.049 Urine Protein 30 H Urine Glucose (UA) NEGATIVE Urine Ketones NEGATIVE Urine Blood NEGATIVE Urine Nitrite NEGATIVE Ur Leukocyte Esterase NEGATIVE Urine WBC (Auto) 0 Urine RBC (Auto) 1 10/06/19 10/06/19 20:00 20:00 Troponin I < 0.012 NT-Pro-B Natriuret Pep 4000 H Impressions: Chest X-Ray 10/06/19 19:54 IMPRESSION: Bilateral basilar atelectasis and pleural effusions 2 cm nodular density in the right midlung new when compared to prior studies. This may represent area of infiltrate but the possibility of metastatic focus is not excluded. Recommend CT Chest/Abdomen CTA 10/06/19 21:18 IMPRESSION: Negative for pulmonary embolus, thoracic aortic aneurysm, or dissection. Extensive axillary and mediastinal adenopathy, also described previously. Small bilateral pleural effusions. Extensive patchy airspace opacities bilaterally predominantly having a groundglass appearance and likely reflecting pneumonia. Some of the opacities are somewhat nodular as well. While findings may reflect multifocal pneumonia, close follow-up following appropriate therapy is recommended. Metastatic disease is not excluded entirely. TECHNICAL DOCUMENTATION: Quality ID # [id number]: Final reports with documentation of one or more dose reduction techniques (e.g., Automated exposure control, adjustment of the mA and/or kV according to patient size, use of iterative reconstruction technique) copyright 2011 [employer]- All Rights Reserved Abdomen/Pelvis CT 10/07/19 00:00 IMPRESSION: No acute process is seen within the abdomen or pelvis. Extensive adenopathy is again seen at the bilateral inguinal, retroperitoneal, pelvic lymph nodes. Mild splenomegaly is also noted. All labs, radiographs, diagnostic studies and EKGs were personally reviewed: Yes In addition, reports of radiographic and diagnostic studies were read: Yes Assessment and Plan - Diagnosis (1) Sepsis Qualifiers: Sepsis type: sepsis due to unspecified organism Sepsis acute organ dysfunction status: with acute organ dysfunction Severe sepsis acute organ dysfunction type: unspecified Severe sepsis shock status: with septic shock Qualified Code(s): A41.9 - Sepsis, unspecified organism; R65.21 - Severe sepsis with septic shock Is this a current diagnosis for this admission?: Yes Plan: Surgical consult for I&D of right axillary and left heel abscesses. Case discussed with Dr. Herrera. He raises concern for possible acute cholecystitis. Change antibiotics to Rocephin/clindamycin/vancomycin. Stop azithromycin. Trend lactate. The patient has a history of left adrenalectomy and recent treatment with steroids (and was still on a steroid taper). Hold steroids. Check random cortisol in a.m. IV fluids: Sepsis bolus. (2) Cellulitis and abscess of foot Is this a current diagnosis for this admission?: Yes Plan: Empiric coverage with Rocephin/clindamycin/vancomycin. Surgery input appreciated. (3) Abnormal gall bladder diagnostic imaging Is this a current diagnosis for this admission?: Yes Plan: Case discussed with Dr. Herrera. Right upper quadrant ultrasound pending. (4) Lymphoma, diffuse Is this a current diagnosis for this admission?: Yes Plan: Hematology/oncology consult. Input appreciated. (5) Elevated brain natriuretic peptide (BNP) level Is this a current diagnosis for this admission?: Yes Plan: 2D echocardiographic interrogation. (6) Bilateral pleural effusion Is this a current diagnosis for this admission?: Yes Plan: Diagnostic thoracentesis may be needed; however, the effusions are quite small at this time. (7) Anemia of chronic disease Is this a current diagnosis for this admission?: Yes Plan: Monitor hemoglobin. (8) Leukocytosis Qualifiers: Leukocytosis type: bandemia Qualified Code(s): D72.825 - Bandemia Is this a current diagnosis for this admission?: Yes Plan: Empiric antibiotic therapy with Rocephin/clindamycin/vancomycin. This should provide reasonable coverage for skin/soft tissue infection as well as abdominal organisms. Blood cultures. Urine cultures. (9) Tachycardia Is this a current diagnosis for this admission?: Yes (10) Tachypnea Is this a current diagnosis for this admission?: Yes (11) Abnormal LFTs Is this a current diagnosis for this admission?: Yes Critical Time Critical Time (minutes): 90 Level of Care: ICU -: 1. The care of a critical patient is a dynamic process. This note is a inside sales account representative synopsis but static in nature. The timeframe for treatments given in order is not necessarily the actual time these treatments may have been done. 2. This patient requires critical care secondary to ongoing requirements for therapy not offered or safe outside the critical care environment. Transfer to a lower level of care will result in altered life or limb morbidity and mortality. 3. Multidisciplinary rounds completed. 4. ABCDE bundle addressed.
--- NOTE | 2019-10-07 19:48 | Operative Report ---
Nonrecallable Operative Report DATE OF SURGERY: 10/07/19 PREOPERATIVE DIAGNOSIS: Left foot abscess POSTOPERATIVE DIAGNOSIS: left foot abscess OPERATION: Incision and drainage of left foot abscess SURGEON: GENTRY MEIER ANESTHESIA: Local TISSUE REMOVED OR ALTERED: Wound culture COMPLICATIONS: None apparent ESTIMATED BLOOD LOSS: Minimal PROCEDURE: Drains/implants: 4 x 4 gauze. Procedure in detail: After informed consent was obtained from the patient, he was laid in the supine position in the ICU. The area of the left foot (plantar surface). Was prepped and draped in a normal sterile fashion. 1% lidocaine was used to anesthetize the area. An 11 blade scalpel was used to create an incision. An abscess cavity approximately 2 to 3 cm in total diameter was identified. There was purulent material present. The wound was irrigated and cleaned. Wound cultures were taken. The wound was then packed with a 4 x 4 gauze. A dressing was placed, and the procedure was concluded. All sponge, instrument, and needle counts were correct. The patient tolerated the procedure very well. Condition: Stable.
--- NOTE | 2019-10-07 19:58 | PDOC CONSULTATION ---
Consultation Consult Date: 10/07/19 Provider Consulted: SURGICAL SURGICALIST Consult reason:: Left foot abscess, abdominal pain. History of Present Illness Admission Date/PCP: 10/06/19 23:48 FABIANA LERMA MD Patient complains of: Left foot pain. Abdominal pain. History of Present Illness: MELITA SETH is a 53 year old male recently diagnosed with lymphoma. The patient had a right axillary lymph node biopsy. He complains of pain in his left foot. He denies any history of trauma, although he does have paresthesias in the left foot due to a previous traumatic injury many years ago. Patient reports malaise, shortness of breath, fatigue, left foot pain, abdominal distention, and abdominal pain. He denies chest pain, headache, nausea, vomiting, blurry vision, orthostasis, melena, hematochezia, hematemesis. The patient was moved to the intensive care unit earlier today due to respiratory compromise. The patient has newly diagnosed bilateral lower lobe pneumonias. 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 GI Medical History: Denies: Cirrhosis, Crohn's Disease, Gastroesophageal Reflux Disease, Hiatal Hernia, Ulcerative Colitis Musculoskeltal Medical History: Denies: Arthritis, Fibromyalgia, Gout Skin Medical History: Denies: Eczema, Psoriasis Psychiatric Medical History: Reports: Bipolar Disorder, Depression Hematology: Denies: Anemia, Bleeding Tendencies, Heparin Induced Thrombocytopenia Past Surgical History Past Surgical History: Reports: Orthopedic Surgery - plate/screws in toe, Other - Left adrenalectomy Social History Smoking Status: Never Smoker Electronic Cigarette use?: No Frequency of Alcohol Use: None Hx Recreational Drug Use: No Drugs: None Hx Prescription Drug Abuse: No - Advance Directive Resuscitation Status: Full Code Family History Family History: None, Malignancy. denies: CAD, DM, Hypertension Parental Family History Reviewed: Yes Children Family History Reviewed: Yes Sibling(s) Family History Reviewed.: Yes Medication/Allergy Home Medications: Hydroxyzine Pamoate [Vistaril 25 mg Capsule] 25 mg PO Q8HP PRN 09/25/19 Potassium Chloride [Klor-Con 10 Meq Tablet ER] 20 meq PO BID 30 Days #60 tablet.er 09/28/19 Prednisone 10 mg PO ASDIR 30 Days #105 tablet 09/28/19 Atenolol [Tenormin] 12.5 mg PO DAILY 10/07/19 Hydrocodone/Acetaminophen [Roark 5-325 Tablet] 1 each PO Q6HP PRN 10/07/19 Allergies/Adverse Reactions: No Known Allergies Allergy (Verified 09/24/19 20:04) Review of Systems Constitutional: PRESENT: fatigue, fever(s). ABSENT: anorexia, headache(s) Eyes: ABSENT: visual disturbances Ears: ABSENT: hearing changes Nose, Mouth, and Throat: ABSENT: mouth pain, sore throat Cardiovascular: ABSENT: chest pain Respiratory: PRESENT: cough, dyspnea Gastrointestinal: PRESENT: abdominal pain, bloating. ABSENT: melena, nausea, vomiting Genitourinary: ABSENT: dysuria Musculoskeletal: ABSENT: back pain Integumentary: ABSENT: pruritus, rash Neurological: ABSENT: confusion, convulsions, dizziness, weakness Psychiatric: PRESENT: other - Bipolar disorder. ABSENT: anxiety Endocrine: ABSENT: cold intolerance, heat intolerance Hematologic/Lymphatic: ABSENT: easy bleeding, easy bruising Physical Exam Vital Signs: Temp Pulse Resp BP Pulse Ox 98.0 F 108 H 21 H 84/64 L 93 10/07/19 09:28 10/07/19 18:00 10/07/19 18:00 10/07/19 18:00 10/07/19 18:00 Intake & Output 10/06/19 10/07/19 10/08/19 06:59 06:59 06:59 Intake Total 2049 2012 Output Total 0 585 Balance 2049 1427 Weight 62.1 kg 62.7 kg General appearance: PRESENT: cooperative, mild distress - Tachypneic Head exam: PRESENT: atraumatic, normocephalic Eye exam: PRESENT: EOMI, PERRLA. ABSENT: scleral icterus Mouth exam: PRESENT: moist, neck supple Neck exam: ABSENT: meningismus, tenderness, thyromegaly, tracheal deviation Respiratory exam: PRESENT: rhonchi, tachypnea - Mild. ABSENT: chest wall t enderness, clear to auscultation ramila Cardiovascular exam: PRESENT: tachycardia - Mild Pulses: PRESENT: normal radial pulses GI/Abdominal exam: PRESENT: distended, soft, tenderness - Mild right upper quadrant tenderness. ABSENT: firm, guarding, rigid Rectal exam: PRESENT: deferred Extremities exam: PRESENT: other - Fluctuance and fullness on the plantar surface of the left foot. There appears to be a puncture suly in the vicinity of the fluctuance. ABSENT: clubbing Neurological exam: PRESENT: alert, awake, oriented to person, oriented to place, oriented to time, oriented to situation, CN II-XII grossly intact Psychiatric exam: ABSENT: agitated, anxious, depressed Focused psych exam: ABSENT: delusional Skin exam: ABSENT: cyanosis, erythema, jaundice Results Laboratory Results: 10/07/19 04:16 10/07/19 10:19 10/06/19 10/06/19 10/06/19 20:00 20:00 22:19 WBC 29.6 H RBC 4.39 Hgb 12.2 L Hct 37.5 L MCV 85 D MCH 27.8 MCHC 32.6 RDW 18.9 H Plt Count 341 Seg Neutrophils % Not Reportable Carbonic Acid HCO3/H2CO3 Ratio ABG pH ABG pCO2 ABG pO2 ABG HCO3 ABG O2 Saturation ABG Base Excess FiO2 Sodium 134.5 L Potassium 4.8 Chloride 94 L Carbon Dioxide 25 Anion Gap 16 BUN 18 Creatinine 0.70 Est GFR ( Amer) > 60 Glucose 100 Lactic Acid 2.0 Calcium 9.4 Total Bilirubin 1.1 AST 89 H Alkaline Phosphatase 128 H C-Reactive Protein Total Protein 8.0 Albumin 4.5 Lipase Urine Color Urine Appearance Urine pH Ur Specific [place] Urine Protein Urine Glucose (UA) Urine Ketones Urine Blood Urine Nitrite Ur Leukocyte Esterase Urine WBC (Auto) Urine RBC (Auto) 10/07/19 10/07/19 10/07/19 01:45 04:16 04:16 WBC 27.8 H RBC 3.89 L Hgb 10.8 L Hct 33.2 L MCV 85 MCH 27.8 MCHC 32.6 RDW 18.9 H Plt Count 248 Seg Neutrophils % Not Reportable Carbonic Acid 1.18 HCO3/H2CO3 Ratio 20:1 ABG pH 7.40 ABG pCO2 39.3 ABG pO2 64.9 L ABG HCO3 23.9 ABG O2 Saturation 92.8 L ABG Base Excess -0.7 FiO2 4L Sodium Potassium Chloride Carbon Dioxide Anion Gap BUN Creatinine Est GFR ( Amer) Glucose Lactic Acid Calcium Total Bilirubin 0.8 AST 47 Alkaline Phosphatase 97 C-Reactive Protein Total Protein 6.0 L Albumin 3.2 L Lipase Urine Color Urine Appearance Urine pH Ur Specific [place] Urine Protein Urine Glucose (UA) Urine Ketones Urine Blood Urine Nitrite Ur Leukocyte Esterase Urine WBC (Auto) Urine RBC (Auto) 10/07/19 10/07/19 10/07/19 04:16 07:35 10:19 WBC RBC Hgb Hct MCV MCH MCHC RDW Plt Count Seg Neutrophils % Carbonic Acid HCO3/H2CO3 Ratio ABG pH ABG pCO2 ABG pO2 ABG HCO3 ABG O2 Saturation ABG Base Excess FiO2 Sodium Potassium Chloride Carbon Dioxide Anion Gap BUN Creatinine Est GFR ( Amer) Glucose Lactic Acid 2.2 H Calcium Total Bilirubin AST Alkaline Phosphatase C-Reactive Protein Total Protein Albumin Lipase 26.4 Urine Color YELLOW Urine Appearance CLEAR Urine pH 6.0 Ur Specific [place] 1.049 Urine Protein 30 H Urine Glucose (UA) NEGATIVE Urine Ketones NEGATIVE Urine Blood NEGATIVE Urine Nitrite NEGATIVE Ur Leukocyte Esterase NEGATIVE Urine WBC (Auto) 0 Urine RBC (Auto) 1 10/07/19 10/07/19 10/07/19 10:19 10:19 15:10 WBC RBC Hgb Hct MCV MCH MCHC RDW Plt Count Seg Neutrophils % Carbonic Acid HCO3/H2CO3 Ratio ABG pH ABG pCO2 ABG pO2 ABG HCO3 ABG O2 Saturation ABG Base Excess FiO2 Sodium 131.8 L Potassium 4.3 Chloride 98 Carbon Dioxide 21 L Anion Gap 13 BUN 22 H Creatinine 1.20 Est GFR ( Amer) > 60 Glucose 104 Lactic Acid 2.0 Calcium 7.5 L Total Bilirubin AST Alkaline Phosphatase C-Reactive Protein 260.4 H Total Protein Albumin Lipase Urine Color Urine Appearance Urine pH Ur Specific [place] Urine Protein Urine Glucose (UA) Urine Ketones Urine Blood Urine Nitrite Ur Leukocyte Esterase Urine WBC (Auto) Urine RBC (Auto) 10/06/19 22:19 Blood Blood Culture (PCR) - Final Staphylococcus Aureus 10/06/19 22:56 Blood Blood Culture (PCR) - Final Staphylococcus Aureus 10/06/19 10/06/19 10/07/19 20:00 20:00 10:19 Troponin I < 0.012 NT-Pro-B Natriuret Pep 4000 H 06112 H Impressions: Chest X-Ray 10/06/19 19:54 IMPRESSION: Bilateral basilar atelectasis and pleural effusions 2 cm nodular density in the right midlung new when compared to prior studies. This may represent area of infiltrate but the possibility of metastatic focus is not excluded. Recommend CT Chest/Abdomen CTA 10/06/19 21:18 IMPRESSION: Negative for pulmonary embolus, thoracic aortic aneurysm, or dissection. Extensive axillary and mediastinal adenopathy, also described previously. Small bilateral pleural effusions. Extensive patchy airspace opacities bilaterally predominantly having a groundglass appearance and likely reflecting pneumonia. Some of the opacities are somewhat nodular as well. While findings may reflect multifocal pneumonia, close follow-up following appropriate therapy is recommended. Metastatic disease is not excluded entirely. TECHNICAL DOCUMENTATION: Quality ID # 436: Final reports with documentation of one or more dose reduction techniques (e.g., Automated exposure control, adjustment of the mA and/or kV according to patient size, use of iterative reconstruction technique) copyright 2011 [employer]- All Rights Reserved Abdomen Ultrasound 10/07/19 00:00 IMPRESSION: 1. Limited visualization of the pancreas. 2. No abnormality of the liver, gallbladder and right kidney. 3. Right pleural effusion. Abdomen/Pelvis CT 10/07/19 00:00 IMPRESSION: No acute process is seen within the abdomen or pelvis. Extensive adenopathy is again seen at the bilateral inguinal, retroperitoneal, pelvic lymph nodes. Mild splenomegaly is also noted. Foot X-Ray 10/07/19 10:03 IMPRESSION: 1. Arthrodesis hardware that transfixes the 1st MTP joint. There is no periprosthetic fracture. 2. Dorsal soft tissue swelling. Assessment & Plan - Diagnosis (1) Foot abscess, left Is this a current diagnosis for this admission?: Yes (2) Abdominal pain Qualifiers: Abdominal location: right upper quadrant Qualified Code(s): R10.11 - Right upper quadrant pain Is this a current diagnosis for this admission?: Yes - Plan Summary Plan Summary: This is a 53-year-old male with a left foot abscess as well as right upper quadrant abdominal pain. He also has some abdominal distention. Currently, the patient does not exhibit an acute abdomen. He has a CT scan that I have reviewed. His gallbladder does appear somewhat distended on the CT scan. I will order a right upper quadrant ultrasound to better evaluate for gallbladder wall thickening, pericholecystic fluid, gallstones, or gallbladder sludge. I will order a left foot x-ray to evaluate for foreign bodies in the left foot. The patient does appear to have a fluctuant foot abscess. Once a foreign body is ruled out, the patient will require incision and drainage of this abscess. Cultures to be obtained. Continue with antibiotics. I have discussed the case personally with the strickler attendant inventory control clerk today. He will adjust the patient's antibiotics.
[2019-10-07] MEDS: CEFTRIAXONE 1 GM/D5W RTU 1 GM/50 ML RTUPB IV SCH (21:27)
[2019-10-07] MEDS ORDERED: AZITHROMYCIN 500 MG in DEXTROSE 5%-WATER 250 ML IV SCH (22:00)
[2019-10-07 22:57] LABS: BLOOD UREA NITROGEN 24 mg/dL (7-20); PHOSPHORUS 5.8 mg/dL (2.5-4.5); POTASSIUM 4.3 mmol/L (3.6-5.0)
[2019-10-07 23:02] LABS: CARBON DIOXIDE 13 mmol/L (22-30); CHLORIDE 93 mmol/L (98-107)
[2019-10-07 23:10] LABS: ANION GAP 21 (5-19)
[2019-10-07 23:12] LABS: GLUCOSE 410 mg/dL (75-110)
[2019-10-07 23:13] LABS: CALCIUM 5.4 mg/dL (8.4-10.2)
[2019-10-08] MEDS ORDERED: HYDROCORTISONE SOD SUCCINATE INJ/PF 100 MG/2 ML SDV IV ONE (01:31)
[2019-10-08 01:50] LABS: HEMATOCRIT 29.7 % (37.9-51.0); HEMOGLOBIN 9.5 g/dL (13.5-17.0); MEAN CORPUSCULAR HEMOGLOBIN 27.1 pg (27.0-33.4); MEAN CORPUSCULAR HGB CONC 31.8 g/dL (32.0-36.0); MEAN CORPUSCULAR VOLUME 85 fl (80-97); PLATELET COUNT 170 10^3/uL (150-450); RED BLOOD COUNT 3.49 10^6/uL (4.35-5.55); RED CELL DISTRIBUTION WIDTH 18.9 % (11.5-14.0); WHITE BLOOD COUNT 24.6 10^3/uL (4.0-10.5)
[2019-10-08 02:06] LABS: ANION GAP 12 (5-19); BLOOD UREA NITROGEN 33 mg/dL (7-20); CALCIUM 7.3 mg/dL (8.4-10.2); CARBON DIOXIDE 20 mmol/L (22-30); CHLORIDE 101 mmol/L (98-107); GLUCOSE 111 mg/dL (75-110)
[2019-10-08 02:09] LABS: ABSOLUTE LYMPHOCYTES# (MANUAL) 0.5 10^3/uL (0.5-4.7); BASOPHILS % (MANUAL) 0 % (0-2); EOSINOPHILS % (MANUAL) 0 % (0-6); LYMPHOCYTES % (MANUAL) 2 % (13-45); MONOCYTES % (MANUAL) 4 % (3-13); SEGMENTED NEUTROPHILS % (MAN) 94 % (42-78); TOTAL CELLS COUNTED 100
[2019-10-08 02:10] LABS: ANISOCYTOSIS 2+; PLATELET COMMENT ADEQUATE
[2019-10-08 02:22] LABS: POTASSIUM 5.8 mmol/L (3.6-5.0)
[2019-10-08] MEDS: CLINDAMYCIN 900 MG/D5W RTU 900 MG/50 ML RTUPB IV SCH ×3 (02:34→17:45)
[2019-10-08] MEDS ORDERED: OXYCODONE HCL IR 5 MG TABLET PO PRN (02:43)
[2019-10-08] MEDS ORDERED: HYDROMORPHONE HCL 2 MG TABLET PO PRN (02:58)
[2019-10-08] MEDS: ACETAMINOPHEN 325 MG TABLET PO PRN ×3 (03:04→21:17)
[2019-10-08] MEDS: RINGERS SOLUTION,LACTATED 1,000 ML IV PRN ×2 (04:33→15:50)
[2019-10-08 05:59] LABS: HEMATOCRIT 26.2 % (37.9-51.0); HEMOGLOBIN 8.8 g/dL (13.5-17.0); MEAN CORPUSCULAR HEMOGLOBIN 28.3 pg (27.0-33.4); MEAN CORPUSCULAR HGB CONC 33.4 g/dL (32.0-36.0); MEAN CORPUSCULAR VOLUME 85 fl (80-97); PLATELET COUNT 158 10^3/uL (150-450); RED CELL DISTRIBUTION WIDTH 18.4 % (11.5-14.0); WHITE BLOOD COUNT 22.7 10^3/uL (4.0-10.5)
[2019-10-08 06:11] LABS: ALBUMIN 2.9 g/dL (3.5-5.0); ALKALINE PHOSPHATASE 66 U/L (38-126); ANION GAP 16 (5-19); ASPARTATE AMINO TRANSFERASE 32 U/L (17-59); BILIRUBIN,DIRECT 0.5 mg/dL (0.0-0.4); BILIRUBIN,TOTAL 0.7 mg/dL (0.2-1.3); BLOOD UREA NITROGEN 37 mg/dL (7-20); CALCIUM 7.2 mg/dL (8.4-10.2); CARBON DIOXIDE 17 mmol/L (22-30); CHLORIDE 101 mmol/L (98-107); GLUCOSE 118 mg/dL (75-110); PHOSPHORUS 7.5 mg/dL (2.5-4.5); POTASSIUM 5.4 mmol/L (3.6-5.0)
[2019-10-08 06:25] LABS: ABSOLUTE LYMPHOCYTES# (MANUAL) 1.4 10^3/uL (0.5-4.7); ABSOLUTE MONOCYTES # (MANUAL) 0.9 10^3/uL (0.1-1.4); ANISOCYTOSIS 2+; BASOPHILS % (MANUAL) 0 % (0-2); EOSINOPHILS % (MANUAL) 0 % (0-6); LYMPHOCYTES % (MANUAL) 6 % (13-45); MONOCYTES % (MANUAL) 4 % (3-13); PLATELET COMMENT ADEQUATE; SEGMENTED NEUTROPHILS % (MAN) 90 % (42-78); TOTAL CELLS COUNTED 100
[2019-10-08] MEDS ORDERED: MAGNESIUM SULFATE INJ 8 MEQ/2 ML IV ONE (08:04)
[2019-10-08] MEDS: ENOXAPARIN SODIUM INJ 40 MG/0.4 ML DISP.SYRIN SUBCUT SCH (10:00)
[2019-10-08] MEDS: MAGNESIUM SULFATE/D5W 1 GM/100 ML RTUPB IV SCH ×2 (10:00→12:00)
[2019-10-08] MEDS: ATENOLOL 50 MG TABLET PO SCH (10:01)
[2019-10-08] MEDS: FAMOTIDINE 20 MG TABLET PO SCH ×2 (10:01→21:17)
[2019-10-08] MEDS: VANCOMYCIN HCL 1,000 MG in DEXTROSE 5%-WATER 250 ML IV SCH (12:00)
[2019-10-08 12:08] LABS: INTERNATIONAL RATION (INR) 1.38; PROTHROMBIN TIME 17.1 SEC (11.4-15.4)
[2019-10-08 12:09] LABS: PARTIAL THROMBOPLASTIN TIME 45.8 SEC (23.5-35.8)
--- NOTE | 2019-10-08 13:52 | RADIOLOGY REPORT (SQ) ---
EXAM DESCRIPTION: PICC INSERTION; U/S GUIDE FOR VASCULAR ACCESS COMPLETED DATE/TIME: 10/08/2019 1:16 pm REASON FOR STUDY: PICC insertion/IV ACCESS; IV ACCESS COMPARISON: AP chest 10/06/2019 FLUOROSCOPY TIME: No fluoroscopy was used. Chest films for use document PICA see placement and wire placement during the procedure. 2 chest films images saved to PACS. TECHNIQUE: Fluoroscopic and ultrasound guided PICC placement. LIMITATIONS: None. PROCEDURE: After written consent and assessment were obtained, the patient was brought into the fluo roscopy room and placed supine on the table. Ultrasound evaluation of potential access sites were per formed. After successfully identifying a patent left basilic vein, the left arm was prepped and drape d in a sterile fashion along with the ultrasound probe. The entry site was anesthetized with 1% lidoc grover. A 21 gauge 7 cm needle was advanced through the skin and into the left basilic vein under live ultrasound guidance. An ultrasound image was saved to PACS confirming access site. A .018 guide wir e was then inserted through the needle and into the venous system. The needle was then removed and an 11 blade scalpel was used to make a 1cm skin incision. A 5 fr peel-away sheath was advanced over th e wire and into the venous system. A measurement was then made using the existing wire and live fluor oscopic guidance. The wire was then removed and trimmed. The PICC was advanced through the peel-away sheath and into the venous system. The peel-away sheath was removed and the catheter was adhered to t he patients arm with a stat lock. The catheter was then aspirated and flushed and a sterile bandage w as placed over the access site. A fluoroscopic spot image was saved to PACS confirming the catheter tip within the superior vena cava. IMPRESSION: SUCCESSFUL PLACEMENT OF A 5 FR DUAL LUMEN 36 CM PICC IN THE LEFT BASILIC VEIN. COMMENT: Patient medication list reviewed: Yes- Quality ID# 130:Eligible professional attests to doc umenting in the medical record they obtained, updated, or reviewed the patient's current medications. . Quality ID 145: Final reports for procedures using fluoroscopy that document radiation exposure jinny carmen, or exposure time and number of fluorographic images (if radiation exposure indices are not avail able) Quality ID #76: The patient was prepped and draped using maximum sterile barrier technique including cap, mask, sterile gown, sterile gloves, a large sterile sheet, hand hygiene, and 2% Chlorhexidine fo r cutaneous antisepsis. When ultrasound is used, sterile ultrasound techniques are followed requiring sterile gel and sterile probes. TECHNICAL DOCUMENTATION: JOB ID: [id number] 2010 [employer]- All Rights Reserved rev-12/20 Reading location - IP/workstation name: [email or web address] Y[facility] MEDICAL CENTEREnrique
--- NOTE | 2019-10-08 14:02 | PDOC PROGRESS REPORT ---
Subjective Progress Note for:: 10/08/19 Subjective:: Patient states that he is feeling better today. His foot was debrided yesterday. His breathing is better today. Reason For Visit: RESPIRATORY DISTRESS,PNEUMONIA,SEPSIS,LYMPHOMA Physical Exam Vital Signs: Temp Pulse Resp BP Pulse Ox 97.5 F 92 19 140/102 H 94 10/08/19 04:00 10/08/19 08:00 10/08/19 13:07 10/08/19 13:07 10/08/19 13:06 Intake & Output 10/07/19 10/08/19 10/09/19 06:59 06:59 06:59 Intake Total 2049 4678 1013 Output Total 0 730 375 Balance 2049 3948 638 Weight 62.1 kg 65.6 kg General appearance: PRESENT: no acute distress Head exam: PRESENT: normocephalic Respiratory exam: PRESENT: decreased breath sounds - Right base, unlabored Cardiovascular exam: PRESENT: RRR GI/Abdominal exam: PRESENT: firm. ABSENT: tenderness Neurological exam: PRESENT: alert, awake Psychiatric exam: PRESENT: appropriate affect Skin exam: PRESENT: normal color Results Laboratory Results: 10/08/19 05:39 10/08/19 11:51 10/07/19 10/07/19 10/07/19 10:19 15:10 22:09 WBC RBC Hgb Hct MCV MCH MCHC RDW Plt Count Seg Neutrophils % Sodium Potassium Chloride Carbon Dioxide Anion Gap BUN Creatinine Est GFR ( Amer) Glucose Lactic Acid 2.0 2.4 H Calcium Phosphorus Magnesium Total Bilirubin AST Alkaline Phosphatase C-Reactive Protein 260.4 H Total Protein Albumin Ur Specific [place] Urine Osmolality 10/07/19 10/07/19 10/07/19 22:09 23:20 23:20 WBC RBC Hgb Hct MCV MCH MCHC RDW Plt Count Seg Neutrophils % Sodium 126.6 L Potassium 4.3 Chloride 93 L Carbon Dioxide 13 L Anion Gap 21 H BUN 24 H Creatinine 0.99 Est GFR ( Amer) > 60 Glucose 410 H* Lactic Acid Calcium 5.4 L* Phosphorus 5.8 H Magnesium 1.2 L* Total Bilirubin AST Alkaline Phosphatase C-Reactive Protein Total Protein Albumin Ur Specific [place] 1.039 Urine Osmolality 380 10/08/19 10/08/19 10/08/19 01:38 01:38 01:38 WBC 24.6 H RBC 3.49 L Hgb 9.5 L Hct 29.7 L MCV 85 MCH 27.1 MCHC 31.8 L RDW 18.9 H Plt Count 170 Seg Neutrophils % Not Reportable Sodium 133.3 L Potassium 5.8 H D Chloride 101 Carbon Dioxide 20 L Anion Gap 12 BUN 33 H Creatinine 1.48 H Est GFR ( Amer) > 60 Glucose 111 H Lactic Acid 2.1 Calcium 7.3 L Phosphorus Magnesium Total Bilirubin AST Alkaline Phosphatase C-Reactive Protein Total Protein Albumin Ur Specific [place] Urine Osmolality 10/08/19 10/08/19 10/08/19 05:39 05:39 11:51 WBC 22.7 H RBC 3.10 L Hgb 8.8 L Hct 26.2 L MCV 85 MCH 28.3 MCHC 33.4 RDW 18.4 H Plt Count 158 Seg Neutrophils % Not Reportable Sodium 133.6 L Potassium 5.4 H 5.0 Chloride 101 Carbon Dioxide 17 L Anion Gap 16 BUN 37 H Creatinine 1.40 H Est GFR ( Amer) > 60 Glucose 118 H Lactic Acid Calcium 7.2 L Phosphorus 7.5 H Magnesium 1.7 2.3 Total Bilirubin 0.7 AST 32 Alkaline Phosphatase 66 C-Reactive Protein Total Protein 6.0 L Albumin 2.9 L Ur Specific [place] Urine Osmolality 10/06/19 22:56 Blood Blood Culture (PCR) - Final Staphylococcus Aureus 10/06/19 22:19 Blood Blood Culture (PCR) - Final Staphylococcus Aureus 10/06/19 10/06/19 10/07/19 20:00 20:00 10:19 Troponin I < 0.012 NT-Pro-B Natriuret Pep 4000 H 21444 H Impressions: Chest X-Ray 10/06/19 19:54 IMPRESSION: Bilateral basilar atelectasis and pleural effusions 2 cm nodular density in the right midlung new when compared to prior studies. This may represent area of infiltrate but the possibility of metastatic focus is not excluded. Recommend CT Chest/Abdomen CTA 10/06/19 21:18 IMPRESSION: Negative for pulmonary embolus, thoracic aortic aneurysm, or dissection. Extensive axillary and mediastinal adenopathy, also described previously. Small bilateral pleural effusions. Extensive patchy airspace opacities bilaterally predominantly having a groundglass appearance and likely reflecting pneumonia. Some of the opacities are somewhat nodular as well. While findings may reflect multifocal pneumonia, close follow-up following appropriate therapy is recommended. Metastatic disease is not excluded entirely. TECHNICAL DOCUMENTATION: Quality ID # 436: Final reports with documentation of one or more dose reduction techniques (e.g., Automated exposure control, adjustment of the mA and/or kV according to patient size, use of iterative reconstruction technique) copyright 2011 [employer]- All Rights Reserved Abdomen Ultrasound 10/07/19 00:00 IMPRESSION: 1. Limited visualization of the pancreas. 2. No abnormality of the liver, gallbladder and right kidney. 3. Right pleural effusion. Abdomen/Pelvis CT 10/07/19 00:00 IMPRESSION: No acute process is seen within the abdomen or pelvis. Extensive adenopathy is again seen at the bilateral inguinal, retroperitoneal, pelvic lymph nodes. Mild splenomegaly is also noted. Foot X-Ray 10/07/19 10:03 IMPRESSION: 1. Arthrodesis hardware that transfixes the 1st MTP joint. There is no periprosthetic fracture. 2. Dorsal soft tissue swelling. Interventional Vascular Procedure 10/08/19 00:00 IMPRESSION: SUCCESSFUL PLACEMENT OF A 5 FR DUAL LUMEN 36 CM PICC IN THE LEFT BASILIC VEIN. PICC Line Insertion 10/08/19 00:00 IMPRESSION: SUCCESSFUL PLACEMENT OF A 5 FR DUAL LUMEN 36 CM PICC IN THE LEFT BASILIC VEIN. Assessment & Plan - Diagnosis (1) Cellulitis and abscess of foot Is this a current diagnosis for this admission?: Yes Plan: On appropriate antibiotics. Surgery following. (2) Multifocal pneumonia Is this a current diagnosis for this admission?: Yes Plan: On appropriate antibiotics. 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 Yoo to begin chemotherapy in the near future. - Time Time Spent with patient: 15-24 minutes - Plan Summary Plan Summary: Dr. Yoo will return tomorrow to discuss further plans for his lymphoma. Please call with any concerns.
--- NOTE | 2019-10-08 14:29 | PDOC PROGRESS REPORT ---
Subjective Progress Note for:: 10/08/19 Reason For Visit: RESPIRATORY DISTRESS,PNEUMONIA,SEPSIS,LYMPHOMA Patient had a reasonable night; does not feel worse in terms of abdominal pain. Difficult to get a consistent history. Left foot remains wrapped status post bedside I&D Physical Exam Vital Signs: Temp Pulse Resp BP Pulse Ox 97.5 F 92 19 140/102 H 94 10/08/19 04:00 10/08/19 08:00 10/08/19 13:07 10/08/19 13:07 10/08/19 13:06 Intake & Output 10/07/19 10/08/19 10/09/19 06:59 06:59 06:59 Intake Total 2049 4678 1013 Output Total 0 730 375 Balance 2049 3948 638 Weight 62.1 kg 65.6 kg General appearance: PRESENT: other - Communicates reasonably well. GI/Abdominal exam: PRESENT: other - Abdomen difficult to examine due to degree of abdominal wall edema. There is some guarding but not localized. Musculoskeletal exam: PRESENT: other - Right foot examined. I&D site reasonably clean, Q-tip probed and repacked with small piece of iodoform packing. Results Laboratory Results: 10/08/19 05:39 10/08/19 11:51 10/07/19 10/07/19 10/07/19 10:19 15:10 22:09 WBC RBC Hgb Hct MCV MCH MCHC RDW Plt Count Seg Neutrophils % Sodium Potassium Chloride Carbon Dioxide Anion Gap BUN Creatinine Est GFR ( Amer) Glucose Lactic Acid 2.0 2.4 H Calcium Phosphorus Magnesium Total Bilirubin AST Alkaline Phosphatase C-Reactive Protein 260.4 H Total Protein Albumin Ur Specific [place] Urine Osmolality 10/07/19 10/07/19 10/07/19 22:09 23:20 23:20 WBC RBC Hgb Hct MCV MCH MCHC RDW Plt Count Seg Neutrophils % Sodium 126.6 L Potassium 4.3 Chloride 93 L Carbon Dioxide 13 L Anion Gap 21 H BUN 24 H Creatinine 0.99 Est GFR ( Amer) > 60 Glucose 410 H* Lactic Acid Calcium 5.4 L* Phosphorus 5.8 H Magnesium 1.2 L* Total Bilirubin AST Alkaline Phosphatase C-Reactive Protein Total Protein Albumin Ur Specific [place] 1.039 Urine Osmolality 380 10/08/19 10/08/19 10/08/19 01:38 01:38 01:38 WBC 24.6 H RBC 3.49 L Hgb 9.5 L Hct 29.7 L MCV 85 MCH 27.1 MCHC 31.8 L RDW 18.9 H Plt Count 170 Seg Neutrophils % Not Reportable Sodium 133.3 L Potassium 5.8 H D Chloride 101 Carbon Dioxide 20 L Anion Gap 12 BUN 33 H Creatinine 1.48 H Est GFR ( Amer) > 60 Glucose 111 H Lactic Acid 2.1 Calcium 7.3 L Phosphorus Magnesium Total Bilirubin AST Alkaline Phosphatase C-Reactive Protein Total Protein Albumin Ur Specific [place] Urine Osmolality 10/08/19 10/08/19 10/08/19 05:39 05:39 11:51 WBC 22.7 H RBC 3.10 L Hgb 8.8 L Hct 26.2 L MCV 85 MCH 28.3 MCHC 33.4 RDW 18.4 H Plt Count 158 Seg Neutrophils % Not Reportable Sodium 133.6 L Potassium 5.4 H 5.0 Chloride 101 Carbon Dioxide 17 L Anion Gap 16 BUN 37 H Creatinine 1.40 H Est GFR ( Amer) > 60 Glucose 118 H Lactic Acid Calcium 7.2 L Phosphorus 7.5 H Magnesium 1.7 2.3 Total Bilirubin 0.7 AST 32 Alkaline Phosphatase 66 C-Reactive Protein Total Protein 6.0 L Albumin 2.9 L Ur Specific [place] Urine Osmolality 10/06/19 22:56 Blood Blood Culture (PCR) - Final Staphylococcus Aureus 10/06/19 22:19 Blood Blood Culture (PCR) - Final Staphylococcus Aureus 10/06/19 10/06/19 10/07/19 20:00 20:00 10:19 Troponin I < 0.012 NT-Pro-B Natriuret Pep 4000 H 71002 H Impressions: Chest X-Ray 10/06/19 19:54 IMPRESSION: Bilateral basilar atelectasis and pleural effusions 2 cm nodular density in the right midlung new when compared to prior studies. This may represent area of infiltrate but the possibility of metastatic focus is not excluded. Recommend CT Chest/Abdomen CTA 10/06/19 21:18 IMPRESSION: Negative for pulmonary embolus, thoracic aortic aneurysm, or dissection. Extensive axillary and mediastinal adenopathy, also described previously. Small bilateral pleural effusions. Extensive patchy airspace opacities bilaterally predominantly having a groundglass appearance and likely reflecting pneumonia. Some of the opacities are somewhat nodular as well. While findings may reflect multifocal pneumonia, close follow-up following appropriate therapy is recommended. Metastatic disease is not excluded entirely. TECHNICAL DOCUMENTATION: Quality ID # [id number]: Final reports with documentation of one or more dose reduction techniques (e.g., Automated exposure control, adjustment of the mA and/or kV according to patient size, use of iterative reconstruction technique) copyright 2011 [employer]- All Rights Reserved Abdomen Ultrasound 10/07/19 00:00 IMPRESSION: 1. Limited visualization of the pancreas. 2. No abnormality of the liver, gallbladder and right kidney. 3. Right pleural effusion. Abdomen/Pelvis CT 10/07/19 00:00 IMPRESSION: No acute process is seen within the abdomen or pelvis. Extensive adenopathy is again seen at the bilateral inguinal, retroperitoneal, pelvic lymph nodes. Mild splenomegaly is also noted. Foot X-Ray 10/07/19 10:03 IMPRESSION: 1. Arthrodesis hardware that transfixes the 1st MTP joint. There is no periprosthetic fracture. 2. Dorsal soft tissue swelling. Interventional Vascular Procedure 10/08/19 00:00 IMPRESSION: SUCCESSFUL PLACEMENT OF A 5 FR DUAL LUMEN 36 CM PICC IN THE LEFT BASILIC VEIN. PICC Line Insertion 10/08/19 00:00 IMPRESSION: SUCCESSFUL PLACEMENT OF A 5 FR DUAL LUMEN 36 CM PICC IN THE LEFT BASILIC VEIN. Assessment & Plan - Diagnosis (1) Abdominal pain Qualifiers: Abdominal location: right upper quadrant Qualified Code(s): R10.11 - Right upper quadrant pain Is this a current diagnosis for this admission?: Yes Plan: Impression: Multi-organ positive for MRSA including lungs, bloodstream, and left foot consistent with sepsis, metabolic acidosis and acute renal insufficiency on the backdrop of untreated, T-cell lymphoma: Do not believe interval cholecystectomy indicated at this time. Recommendations: 1. Continue local wound care of the left foot this was reviewed with nursing staff 2. Continue multidrug antibiotic therapy 3. I spoke with Dr. Pimentel, [facility]. 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 This is patient's first episode with multiorgan system challenge, and sepsis. 4. I discussed the patient's management with ICU team. We will maintain current level of support, and continue to follow patient with you. - Time Time Spent: 50 to 70 Minutes
--- NOTE | 2019-10-08 16:26 | PDOC CRITICAL CARE PROG REPORT ---
General Date:: 10/08/19 ICU Day:: 2 Hospital Day:: 3 Resuscitation Status: Full Code Events in the past 12 to 24 Hours:: Interim events: Transferred to ICU yesterday for further evaluation and management of septic shock of unknown etiology. Physical exam revealed L plantar abscess, which underwent I & D by Dr. Herrera last night. Also, Blood cultures drawn on 10/06/2019 are (2 of 2) positive for MRSA. The patient was started on clindamycin/vancomycin yesterday in addition to Rocephin (started on 10/05). HISTORY OF PRESENT ILLNESS: This 53-year-old male non-smoker is seen in consultation at the request of Dr. Noel Patricia for recommendations on further evaluation and management of hypotension. The patient was admitted overnight with complaints of increased shortness of breath, nonproductive cough and 1 to 2 days of chills. The patient reports that he went to the grocery store with a family member on the day prior to presentation and was unable to walk up and down the grocery aisles. He denies chest pain. He endorses cough without sputum production. He denies wheezing. He denies fever (although he does have a documented T-max of 103 in the emergency department). He denies sick contacts. 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 He has no history of chemotherapy or radiation therapy. This is a new diagnosis. REVIEW OF SYSTEMS: Constitutional: Fever, chills, fatigue, weakness ENT: Denies postnasal drip. Denies rhinitis. Denies rhinorrhea. Denies sinus tenderness. No sore throat. Respiratory: Exertional dyspnea, cough. No hemoptysis. No sputum production. Recent treatment for pneumonia. Cardiovascular: Severe exertional dyspnea. No chest pain. No orthopnea. No palpitations. No presyncope or syncope. Hematologic: New diagnosis of T-cell lymphoma. Gastrointestinal: No nausea. No vomiting. No diarrhea. Skin: Diffuse scattered macular hypopigmented lesions (reported by the patient as remnants of prior scabies infestation). No abnormal bruising. No abnormal bleeding. Neurologic: Left foot pain. No focal weakness. No dizziness. No confusion. No change in mental status. No seizures. Psychiatric: No change in mood. Denies anxiety/depression. Denies hallucinations. PAST MEDICAL HISTORY: * New diagnosis of T-cell lymphoma * Hypertension * Asthma * COPD/chronic bronchitis * Pneumonia * Respiratory failure * Bipolar disorder * Depression PAST SURGICAL HISTORY: * Orthopedic surgery (left great toe) * Left adrenalectomy SOCIAL HISTORY: * Occupational: He is out of work. He used to work with asphalt. * Smoking: Lifetime non-smoker. * Alcohol: Estimates that he drinks approximately 48 ounces of beer daily. Denies history of alcohol withdrawal. * Illicit drugs: Denies. FAMILY HISTORY: Family history reviewed. Noncontributory. ALLERGIES: No known drug allergies. Home Medications: * Vistaril 25 mg p.o. every 8 hours as needed * OxyIR 10 mg p.o. every 6 hours as needed * Tylenol 650 mg p.o. every 4 hours as needed * Tenormin 12.5 mg p.o. daily * Klor-Con 10 mEq tablet ER 20 mEq p.o. twice daily * Prednisone taper Review of systems relevant to events:: Constitutional, respiratory, cardiovascular, GI, hematologic Reason for ICU Addmission:: Hypotension - Medications: Medications reviewed and adjusted accordingly: Yes Vasopressors:: None Sedation:: None. Physical Exam Vital Signs: Temp Pulse Resp BP Pulse Ox 97.5 F 108 H 21 H 84/64 L 93 10/08/19 04:00 10/07/19 20:00 10/07/19 18:00 10/07/19 18:00 10/07/19 18:00 Intake & Output 10/07/19 10/08/19 10/09/19 06:59 06:59 06:59 Intake Total 2049 4678 Output Total 0 730 Balance 2049 3948 Weight 62.1 kg 65.6 kg Weight/Height Weight 65.6 kg Height 1.52 m General appearance: PRESENT: no acute distress, well-developed, well-nourished Head exam: PRESENT: atraumatic, normocephalic Eye exam: PRESENT: conjunctiva pink, EOMI, PERRLA. ABSENT: scleral icterus Mouth exam: PRESENT: moist, tongue midline Respiratory exam: PRESENT: clear to auscultation ramila, crackles. ABSENT: wheezes Cardiovascular exam: PRESENT: RRR. ABSENT: diastolic murmur, rubs, systolic murmur Pulses: PRESENT: normal dorsalis pedis pul GI/Abdominal exam: PRESENT: normal bowel sounds, soft. ABSENT: distended, guarding, mass, organolmegaly, rebound, tenderness Extremities exam: PRESENT: full ROM, pedal edema, tenderness - L foot (improving), +1 edema. ABSENT: calf tenderness, clubbing Neurological exam: PRESENT: alert, awake, oriented to person, oriented to place, oriented to time, oriented to situation, CN II-XII grossly intact. ABSENT: motor sensory deficit Skin exam: PRESENT: other - L foot bandaged Laboratory/Radiographs Laboratory Results: 10/08/19 05:39 10/08/19 05:39 10/07/19 10/07/19 10/07/19 07:35 10:19 10:19 WBC RBC Hgb Hct MCV MCH MCHC RDW Plt Count Seg Neutrophils % Sodium 131.8 L Potassium 4.3 Chloride 98 Carbon Dioxide 21 L Anion Gap 13 BUN 22 H Creatinine 1.20 Est GFR ( Amer) > 60 Glucose 104 Lactic Acid 2.2 H Calcium 7.5 L Phosphorus Magnesium Total Bilirubin AST Alkaline Phosphatase C-Reactive Protein Total Protein Albumin Urine Color YELLOW Urine Appearance CLEAR Urine pH 6.0 Ur Specific [place] 1.049 Urine Protein 30 H Urine Glucose (UA) NEGATIVE Urine Ketones NEGATIVE Urine Blood NEGATIVE Urine Nitrite NEGATIVE Ur Leukocyte Esterase NEGATIVE Urine WBC (Auto) 0 Urine RBC (Auto) 1 Urine Osmolality 10/07/19 10/07/19 10/07/19 10:19 15:10 22:09 WBC RBC Hgb Hct MCV MCH MCHC RDW Plt Count Seg Neutrophils % Sodium Potassium Chloride Carbon Dioxide Anion Gap BUN Creatinine Est GFR ( Amer) Glucose Lactic Acid 2.0 2.4 H Calcium Phosphorus Magnesium Total Bilirubin AST Alkaline Phosphatase C-Reactive Protein 260.4 H Total Protein Albumin Urine Color Urine Appearance Urine pH Ur Specific [place] Urine Protein Urine Glucose (UA) Urine Ketones Urine Blood Urine Nitrite Ur Leukocyte Esterase Urine WBC (Auto) Urine RBC (Auto) Urine Osmolality 10/07/19 10/07/19 10/07/19 22:09 23:20 23:20 WBC RBC Hgb Hct MCV MCH MCHC RDW Plt Count Seg Neutrophils % Sodium 126.6 L Potassium 4.3 Chloride 93 L Carbon Dioxide 13 L Anion Gap 21 H BUN 24 H Creatinine 0.99 Est GFR ( Amer) > 60 Glucose 410 H* Lactic Acid Calcium 5.4 L* Phosphorus 5.8 H Magnesium 1.2 L* Total Bilirubin AST Alkaline Phosphatase C-Reactive Protein Total Protein Albumin Urine Color Urine Appearance Urine pH Ur Specific [place] 1.039 Urine Protein Urine Glucose (UA) Urine Ketones Urine Blood Urine Nitrite Ur Leukocyte Esterase Urine WBC (Auto) Urine RBC (Auto) Urine Osmolality 380 10/08/19 10/08/19 10/08/19 01:38 01:38 01:38 WBC 24.6 H RBC 3.49 L Hgb 9.5 L Hct 29.7 L MCV 85 MCH 27.1 MCHC 31.8 L RDW 18.9 H Plt Count 170 Seg Neutrophils % Not Reportable Sodium 133.3 L Potassium 5.8 H D Chloride 101 Carbon Dioxide 20 L Anion Gap 12 BUN 33 H Creatinine 1.48 H Est GFR ( Amer) > 60 Glucose 111 H Lactic Acid 2.1 Calcium 7.3 L Phosphorus Magnesium Total Bilirubin AST Alkaline Phosphatase C-Reactive Protein Total Protein Albumin Urine Color Urine Appearance Urine pH Ur Specific [place] Urine Protein Urine Glucose (UA) Urine Ketones Urine Blood Urine Nitrite Ur Leukocyte Esterase Urine WBC (Auto) Urine RBC (Auto) Urine Osmolality 10/08/19 10/08/19 05:39 05:39 WBC 22.7 H RBC 3.10 L Hgb 8.8 L Hct 26.2 L MCV 85 MCH 28.3 MCHC 33.4 RDW 18.4 H Plt Count 158 Seg Neutrophils % Not Reportable Sodium 133.6 L Potassium 5.4 H Chloride 101 Carbon Dioxide 17 L Anion Gap 16 BUN 37 H Creatinine 1.40 H Est GFR ( Amer) > 60 Glucose 118 H Lactic Acid Calcium 7.2 L Phosphorus 7.5 H Magnesium 1.7 Total Bilirubin 0.7 AST 32 Alkaline Phosphatase 66 C-Reactive Protein Total Protein 6.0 L Albumin 2.9 L Urine Color Urine Appearance Urine pH Ur Specific [place] Urine Protein Urine Glucose (UA) Urine Ketones Urine Blood Urine Nitrite Ur Leukocyte Esterase Urine WBC (Auto) Urine RBC (Auto) Urine Osmolality 10/06/19 22:19 Blood Blood Culture (PCR) - Final Staphylococcus Aureus 10/06/19 22:56 Blood Blood Culture (PCR) - Final Staphylococcus Aureus 10/06/19 10/06/19 10/07/19 20:00 20:00 10:19 Troponin I < 0.012 NT-Pro-B Natriuret Pep 4000 H 56909 H Impressions: Chest X-Ray 10/06/19 19:54 IMPRESSION: Bilateral basilar atelectasis and pleural effusions 2 cm nodular density in the right midlung new when compared to prior studies. This may represent area of infiltrate but the possibility of metastatic focus is not excluded. Recommend CT Chest/Abdomen CTA 10/06/19 21:18 IMPRESSION: Negative for pulmonary embolus, thoracic aortic aneurysm, or dissection. Extensive axillary and mediastinal adenopathy, also described previously. Small bilateral pleural effusions. Extensive patchy airspace opacities bilaterally predominantly having a groundglass appearance and likely reflecting pneumonia. Some of the opacities are somewhat nodular as well. While findings may reflect multifocal pneumonia, close follow-up following appropriate therapy is recommended. Metastatic disease is not excluded entirely. TECHNICAL DOCUMENTATION: Quality ID # [id number]: Final reports with documentation of one or more dose reduction techniques (e.g., Automated exposure control, adjustment of the mA and/or kV according to patient size, use of iterative reconstruction technique) copyright 2011 [employer]- All Rights Reserved Abdomen Ultrasound 10/07/19 00:00 IMPRESSION: 1. Limited visualization of the pancreas. 2. No abnormality of the liver, gallbladder and right kidney. 3. Right pleural effusion. Abdomen/Pelvis CT 10/07/19 00:00 IMPRESSION: No acute process is seen within the abdomen or pelvis. Extensive adenopathy is again seen at the bilateral inguinal, retroperitoneal, pelvic lymph nodes. Mild splenomegaly is also noted. Foot X-Ray 10/07/19 10:03 IMPRESSION: 1. Arthrodesis hardware that transfixes the 1st MTP joint. There is no periprosthetic fracture. 2. Dorsal soft tissue swelling. All labs, radiographs, diagnostic studies and EKGs were personally reviewed: Yes In addition, reports of radiographic and diagnostic studies were read: Yes Assessment and Plan - Diagnosis (1) Sepsis Qualifiers: Sepsis type: sepsis due to unspecified organism Sepsis acute organ dysfunction status: with acute organ dysfunction Severe sepsis acute organ dysfunction type: unspecified Severe sepsis shock status: with septic shock Qualified Code(s): A41.9 - Sepsis, unspecified organism; R65.21 - Severe sepsis with septic shock Is this a current diagnosis for this admission?: Yes Plan: General surgery help appreciated. Continue Rocephin/clindamycin/vancomycin until WOUND CULTURE finalizes. (2) MRSA bacteremia Is this a current diagnosis for this admission?: Yes Plan: Continue vancomycin. Repeat blood cultures. (3) Cellulitis and abscess of foot Is this a current diagnosis for this admission?: Yes Plan: 2x3 cm L plantar (heel) abscess, status post I & D. Empiric coverage with Rocephin/clindamycin/vancomycin. Surgery input appreciated. Case discussed with Dr. Cuellar. (4) Abnormal gall bladder diagnostic imaging Is this a current diagnosis for this admission?: Yes (5) Lymphoma, diffuse Is this a current diagnosis for this admission?: Yes Plan: Hematology/oncology consult. Input appreciated. (6) Elevated brain natriuretic peptide (BNP) level Is this a current diagnosis for this admission?: Yes Plan: 2D echocardiographic: LVEF 45%, mild global hypokinesis. Grade I diastolic dysfunction. (7) Bilateral pleural effusion Is this a current diagnosis for this admission?: Yes Plan: Diagnostic thoracentesis may be needed; however, the effusions are quite small at this time. Decubitus CXR in am. (8) Anemia of chronic disease Is this a current diagnosis for this admission?: Yes (9) Leukocytosis Qualifiers: Leukocytosis type: bandemia Qualified Code(s): D72.825 - Bandemia Is this a current diagnosis for this admission?: Yes (10) Tachycardia Is this a current diagnosis for this admission?: Yes (11) Tachypnea Is this a current diagnosis for this admission?: Yes (12) Abnormal LFTs Is this a current diagnosis for this admission?: Yes Critical Time Critical Time (minutes): 45 Level of Care: ICU -: 1. The care of a critical patient is a dynamic process. This note is a congressional representative synopsis but static in nature. The timeframe for treatments given in order is not necessarily the actual time these treatments may have been done. 2. This patient requires critical care secondary to ongoing requirements for therapy not offered or safe outside the critical care environment. Transfer to a lower level of care will result in altered life or limb morbidity and mortality. 3. Multidisciplinary rounds completed. 4. ABCDE bundle addressed.
[2019-10-08] MEDS: CEFTRIAXONE 1 GM/D5W RTU 1 GM/50 ML RTUPB IV SCH (21:18)
[2019-10-09] MEDS: CLINDAMYCIN 900 MG/D5W RTU 900 MG/50 ML RTUPB IV SCH ×3 (02:38→17:47)
[2019-10-09 05:03] LABS: ABSOLUTE LYMPHOCYTES (AUTO) 1.7 10^3/uL (0.5-4.7); ABSOLUTE MONOCYTES (AUTO) 1.1 10^3/uL (0.1-1.4); ABSOLUTE NEUT (AUTO) 13.4 10^3/uL (1.7-8.2); HEMATOCRIT 23.7 % (37.9-51.0); HEMOGLOBIN 8.1 g/dL (13.5-17.0); LYMPHOCYTES % (AUTO) 10.7 % (13-45); MEAN CORPUSCULAR HEMOGLOBIN 28.4 pg (27.0-33.4); MEAN CORPUSCULAR HGB CONC 34.2 g/dL (32.0-36.0); MEAN CORPUSCULAR VOLUME 83 fl (80-97); MONOCYTES % (AUTO) 6.8 % (3-13); PLATELET COUNT 161 10^3/uL (150-450); RED BLOOD COUNT 2.85 10^6/uL (4.35-5.55); RED CELL DISTRIBUTION WIDTH 18.6 % (11.5-14.0); SEGMENTED NEUTROPHILS % (AUTO) 82.5 % (42-78); TOTAL CELLS COUNTED % (AUTO) 100 %; WHITE BLOOD COUNT 16.2 10^3/uL (4.0-10.5)
[2019-10-09 05:20] LABS: ALBUMIN 2.6 g/dL (3.5-5.0); ALKALINE PHOSPHATASE 74 U/L (38-126); ANION GAP 10 (5-19); ASPARTATE AMINO TRANSFERASE 23 U/L (17-59); BILIRUBIN,DIRECT 0.3 mg/dL (0.0-0.4); BILIRUBIN,TOTAL 0.4 mg/dL (0.2-1.3); BLOOD UREA NITROGEN 28 mg/dL (7-20); CALCIUM 7.5 mg/dL (8.4-10.2); CARBON DIOXIDE 23 mmol/L (22-30); CHLORIDE 103 mmol/L (98-107); GLUCOSE 98 mg/dL (75-110); POTASSIUM 4.3 mmol/L (3.6-5.0); TOTAL PROTEIN 5.4 g/dL (6.3-8.2)
[2019-10-09 05:38] LABS: PHOSPHORUS 3.9 mg/dL (2.5-4.5)
[2019-10-09] MEDS: ALBUTEROL SULFATE HFA (90 MCG/PUFF) 8 GM MDI IH PRN ×3 (07:57→20:49)
--- NOTE | 2019-10-09 08:11 | PDOC PROGRESS REPORT ---
Subjective Progress Note for:: 10/09/19 Subjective:: Patient seems to be doing better, eating a little bit more, still having upper abdominal pain. Breathing seems better. Reason For Visit: RESPIRATORY DISTRESS,PNEUMONIA,SEPSIS,LYMPHOMA Physical Exam Vital Signs: Temp Pulse Resp BP Pulse Ox 98.7 F 102 H 17 126/76 H 90 L 10/09/19 06:00 10/08/19 20:00 10/08/19 18:52 10/08/19 18:52 10/08/19 18:21 Intake & Output 10/08/19 10/09/19 10/10/19 06:59 06:59 06:59 Intake Total 4678 1722 100 Output Total 730 1675 Balance 3948 47 100 Weight 65.6 kg 65 kg General appearance: PRESENT: no acute distress, well-developed, well-nourished Head exam: PRESENT: atraumatic, normocephalic Eye exam: PRESENT: conjunctiva pink, EOMI, PERRLA. ABSENT: scleral icterus Ear exam: PRESENT: normal external ear exam Mouth exam: PRESENT: moist, tongue midline Neck exam: ABSENT: carotid bruit, JVD, lymphadenopathy, thyromegaly Respiratory exam: PRESENT: clear to auscultation ramila. ABSENT: rales, rhonchi, wheezes Cardiovascular exam: PRESENT: RRR. ABSENT: diastolic murmur, rubs, systolic murmur Pulses: PRESENT: normal dorsalis pedis pul Vascular exam: PRESENT: normal capillary refill GI/Abdominal exam: PRESENT: normal bowel sounds, soft. ABSENT: distended, guarding, mass, organolmegaly, rebound, tenderness Rectal exam: PRESENT: deferred Extremities exam: PRESENT: full ROM. ABSENT: calf tenderness, clubbing, pedal edema Neurological exam: PRESENT: alert, awake, oriented to person, oriented to place, oriented to time, oriented to situation, CN II-XII grossly intact. ABSENT: motor sensory deficit Psychiatric exam: PRESENT: appropriate affect, normal mood. ABSENT: homicidal ideation, suicidal ideation Skin exam: PRESENT: dry, intact, warm. ABSENT: cyanosis, rash Results Laboratory Results: 10/09/19 04:45 10/09/19 04:45 10/08/19 10/08/19 10/09/19 11:51 18:12 04:45 WBC RBC Hgb Hct MCV MCH MCHC RDW Plt Count Seg Neutrophils % Sodium 136.2 L Potassium 5.0 4.3 Chloride 103 Carbon Dioxide 23 Anion Gap 10 BUN 28 H Creatinine 0.90 Est GFR ( Amer) > 60 Glucose 98 Calcium 7.5 L Ionized Calcium Tanner Phosphorus 3.9 D Magnesium 2.3 2.6 H 2.7 H Total Bilirubin 0.4 AST 23 Alkaline Phosphatase 74 Total Protein 5.4 L Albumin 2.6 L 10/09/19 10/09/19 04:45 04:45 WBC 16.2 H RBC 2.85 L Hgb 8.1 L Hct 23.7 L MCV 83 MCH 28.4 MCHC 34.2 RDW 18.6 H Plt Count 161 Seg Neutrophils % 82.5 H Sodium Potassium Chloride Carbon Dioxide Anion Gap BUN Creatinine Est GFR ( Amer) Glucose Calcium Ionized Calcium Tanner 1.12 L Phosphorus Magnesium Total Bilirubin AST Alkaline Phosphatase Total Protein Albumin 10/06/19 22:56 Blood Blood Culture (PCR) - Final Staphylococcus Aureus 10/06/19 22:19 Blood Blood Culture (PCR) - Final Staphylococcus Aureus 10/06/19 10/06/19 10/07/19 20:00 20:00 10:19 Troponin I < 0.012 NT-Pro-B Natriuret Pep 4000 H 69354 H Impressions: Chest X-Ray 10/06/19 19:54 IMPRESSION: Bilateral basilar atelectasis and pleural effusions 2 cm nodular density in the right midlung new when compared to prior studies. This may represent area of infiltrate but the possibility of metastatic focus is not excluded. Recommend CT Chest/Abdomen CTA 10/06/19 21:18 IMPRESSION: Negative for pulmonary embolus, thoracic aortic aneurysm, or dissection. Extensive axillary and mediastinal adenopathy, also described previously. Small bilateral pleural effusions. Extensive patchy airspace opacities bilaterally predominantly having a groundglass appearance and likely reflecting pneumonia. Some of the opacities are somewhat nodular as well. While findings may reflect multifocal pneumonia, close follow-up following appropriate therapy is recommended. Metastatic disease is not excluded entirely. TECHNICAL DOCUMENTATION: Quality ID # 436: Final reports with documentation of one or more dose reduction techniques (e.g., Automated exposure control, adjustment of the mA and/or kV according to patient size, use of iterative reconstruction technique) copyright 2011 [employer]- All Rights Reserved Abdomen Ultrasound 10/07/19 00:00 IMPRESSION: 1. Limited visualization of the pancreas. 2. No abnormality of the liver, gallbladder and right kidney. 3. Right pleural effusion. Abdomen/Pelvis CT 10/07/19 00:00 IMPRESSION: No acute process is seen within the abdomen or pelvis. Extensive adenopathy is again seen at the bilateral inguinal, retroperitoneal, pelvic lymph nodes. Mild splenomegaly is also noted. Foot X-Ray 10/07/19 10:03 IMPRESSION: 1. Arthrodesis hardware that transfixes the 1st MTP joint. There is no periprosthetic fracture. 2. Dorsal soft tissue swelling. Interventional Vascular Procedure 10/08/19 00:00 IMPRESSION: SUCCESSFUL PLACEMENT OF A 5 FR DUAL LUMEN 36 CM PICC IN THE LEFT BASILIC VEIN. PICC Line Insertion 10/08/19 00:00 IMPRESSION: SUCCESSFUL PLACEMENT OF A 5 FR DUAL LUMEN 36 CM PICC IN THE LEFT BASILIC VEIN. 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 (3) Leukocytosis Qualifiers: Leukocytosis type: bandemia Qualified Code(s): D72.825 - Bandemia Is this a current diagnosis for this admission?: Yes Plan: Secondary to infection improved (4) Cellulitis and abscess of foot Is this a current diagnosis for this admission?: Yes Plan: Continue with current antibiotic until we have sensitivities, thereafter he could potentially transition to vancomycin. (5) MRSA bacteremia Is this a current diagnosis for this admission?: Yes Plan: Continue with current antibiotic coverage as above - Time Time Spent with patient: 35 or more minutes - Inpatient Certification Based on my medical assessment, after consideration of the patient's comorbidities, presenting symptoms, or acuity I expect that the services needed warrant INPATIENT care.: Yes I certify that my determination is in accordance with my understanding of Medicare's requirements for reasonable and necessary INPATIENT services [42 CFR 412.3e].: Yes Medical Necessity: Need for IV Antibiotics
[2019-10-09] MEDS: IPRATROPIUM/ALBUTEROL 0.5-2.5 MG/3 ML AMPUL NEB PRN (09:06)
--- NOTE | 2019-10-09 09:08 | PDOC PROGRESS REPORT ---
Subjective Progress Note for:: 10/09/19 Reason For Visit: RESPIRATORY DISTRESS,PNEUMONIA,SEPSIS,LYMPHOMA Patient states he feels better, little less abdominal pain, breathing better. Physical Exam Vital Signs: Temp Pulse Resp BP Pulse Ox 98.7 F 97 19 133/73 H 94 10/09/19 06:00 10/09/19 08:00 10/09/19 08:00 10/09/19 08:00 10/09/19 08:00 Intake & Output 10/08/19 10/09/19 10/10/19 06:59 06:59 06:59 Intake Total 4678 1722 100 Output Total 730 1675 0 Balance 3948 47 100 Weight 65.6 kg 65 kg General appearance: PRESENT: mild distress, other - Not as short winded; color appears improved GI/Abdominal exam: PRESENT: other - Less edematous less tender; no peritoneal signs Musculoskeletal exam: PRESENT: other - Foot wrapped, less tender, minimal swelling Results Laboratory Results: 10/09/19 04:45 10/09/19 04:45 10/08/19 10/08/19 10/09/19 11:51 18:12 04:45 WBC RBC Hgb Hct MCV MCH MCHC RDW Plt Count Seg Neutrophils % Sodium 136.2 L Potassium 5.0 4.3 Chloride 103 Carbon Dioxide 23 Anion Gap 10 BUN 28 H Creatinine 0.90 Est GFR ( Amer) > 60 Glucose 98 Calcium 7.5 L Ionized Calcium Tanner Phosphorus 3.9 D Magnesium 2.3 2.6 H 2.7 H Total Bilirubin 0.4 AST 23 Alkaline Phosphatase 74 Total Protein 5.4 L Albumin 2.6 L 10/09/19 10/09/19 04:45 04:45 WBC 16.2 H RBC 2.85 L Hgb 8.1 L Hct 23.7 L MCV 83 MCH 28.4 MCHC 34.2 RDW 18.6 H Plt Count 161 Seg Neutrophils % 82.5 H Sodium Potassium Chloride Carbon Dioxide Anion Gap BUN Creatinine Est GFR ( Amer) Glucose Calcium Ionized Calcium Tanner 1.12 L Phosphorus Magnesium Total Bilirubin AST Alkaline Phosphatase Total Protein Albumin 10/08/19 05:39 Blood Blood Culture (PCR) - Final Staphylococcus Aureus 10/06/19 22:56 Blood Blood Culture (PCR) - Final Staphylococcus Aureus 10/06/19 22:19 Blood Blood Culture (PCR) - Final Staphylococcus Aureus 10/06/19 10/06/19 10/07/19 20:00 20:00 10:19 Troponin I < 0.012 NT-Pro-B Natriuret Pep 4000 H 86640 H Impressions: Chest X-Ray 10/06/19 19:54 IMPRESSION: Bilateral basilar atelectasis and pleural effusions 2 cm nodular density in the right midlung new when compared to prior studies. This may represent area of infiltrate but the possibility of metastatic focus is not excluded. Recommend CT Chest/Abdomen CTA 10/06/19 21:18 IMPRESSION: Negative for pulmonary embolus, thoracic aortic aneurysm, or dissection. Extensive axillary and mediastinal adenopathy, also described previously. Small bilateral pleural effusions. Extensive patchy airspace opacities bilaterally predominantly having a groundglass appearance and likely reflecting pneumonia. Some of the opacities are somewhat nodular as well. While findings may reflect multifocal pneumonia, close follow-up following appropriate therapy is recommended. Metastatic disease is not excluded entirely. TECHNICAL DOCUMENTATION: Quality ID # 436: Final reports with documentation of one or more dose reduction techniques (e.g., Automated exposure control, adjustment of the mA and/or kV according to patient size, use of iterative reconstruction technique) copyright 2011 [employer]- All Rights Reserved Abdomen Ultrasound 10/07/19 00:00 IMPRESSION: 1. Limited visualization of the pancreas. 2. No abnormality of the liver, gallbladder and right kidney. 3. Right pleural effusion. Abdomen/Pelvis CT 10/07/19 00:00 IMPRESSION: No acute process is seen within the abdomen or pelvis. Extensive adenopathy is again seen at the bilateral inguinal, retroperitoneal, pelvic lymph nodes. Mild splenomegaly is also noted. Foot X-Ray 10/07/19 10:03 IMPRESSION: 1. Arthrodesis hardware that transfixes the 1st MTP joint. There is no periprosthetic fracture. 2. Dorsal soft tissue swelling. Interventional Vascular Procedure 10/08/19 00:00 IMPRESSION: SUCCESSFUL PLACEMENT OF A 5 FR DUAL LUMEN 36 CM PICC IN THE LEFT BASILIC VEIN. PICC Line Insertion 10/08/19 00:00 IMPRESSION: SUCCESSFUL PLACEMENT OF A 5 FR DUAL LUMEN 36 CM PICC IN THE LEFT BASILIC VEIN. Assessment & Plan - Diagnosis (1) Abdominal pain Qualifiers: Abdominal location: right upper quadrant Qualified Code(s): R10.11 - Right upper quadrant pain Is this a current diagnosis for this admission?: Yes (2) Cellulitis and abscess of foot Is this a current diagnosis for this admission?: Yes Plan: Impression: Clinically improved left foot status post bedside I&D; leukocytosis and acidosis improving. Nominal pain also improving Recommendations: 1. No indication for further surgical intervention on left foot. Continue local wound care, MRSA therapy 2. In light of improved abdominal symptoms, suggest advancing diet as tolerated. 3. Discussed above with fulling machine operator; surgery will sign off for now; reconsult if clinically indicated. (3) Leukocytosis Qualifiers: Leukocytosis type: bandemia Qualified Code(s): D72.825 - Bandemia Is this a current diagnosis for this admission?: Yes (4) MRSA bacteremia Is this a current diagnosis for this admission?: Yes - Time Time Spent: 30 to 50 Minutes
[2019-10-09] MEDS: RINGERS SOLUTION,LACTATED 1,000 ML IV PRN (09:15)
[2019-10-09 10:09] LABS: URINE AMPHETAMINES SCREEN NEGATIVE; URINE BARBITURATES SCREEN NEGATIVE; URINE BENZODIAZEPINES SCREEN NEGATIVE; URINE COCAINE SCREEN NEGATIVE; URINE MARIJUANA (THC) SCREEN NEGATIVE; URINE METHADONE SCREEN NEGATIVE; URINE PHENCYCLIDINE SCREEN NEGATIVE
[2019-10-09] MEDS: VANCOMYCIN HCL 1,000 MG in DEXTROSE 5%-WATER 250 ML IV SCH (10:55)
[2019-10-09] MEDS: ATENOLOL 50 MG TABLET PO SCH (10:55)
[2019-10-09] MEDS: FAMOTIDINE 20 MG TABLET PO SCH ×2 (10:55→21:12)
[2019-10-09] MEDS: ENOXAPARIN SODIUM INJ 40 MG/0.4 ML DISP.SYRIN SUBCUT SCH (10:55)
--- NOTE | 2019-10-09 11:30 | PDOC CRITICAL CARE PROG REPORT ---
General Date:: 10/09/19 ICU Day:: 3 Hospital Day:: 4 Resuscitation Status: Full Code Events in the past 12 to 24 Hours:: Interim events: Never required vasopressors. BP improved. On Rocephin (10/05)/clindamycin (10/06)/vancomycin (10/06) pending final culture results. Of note, the patient has had blood cultures isolate MRSA on 2 different days. No drug screen was obtained prior to admission. Physical exam revealed L plantar abscess, which underwent I & D by Dr. Herrera last night. Also, Blood cultures drawn on 10/06/2019 are (2 of 2) positive for MRSA. The patient was started on clindamycin/vancomycin yesterday in addition to Rocephin (started on 10/05). Case discussed with Dr. Yoo. HISTORY OF PRESENT ILLNESS: This 53-year-old male non-smoker is seen in consultation at the request of Dr. Noel Patricia for recommendations on further evaluation and management of hypotension. The patient was admitted overnight with complaints of increased shortness of breath, nonproductive cough and 1 to 2 days of chills. The patient reports that he went to the grocery store with a family member on the day prior to presentation and was unable to walk up and down the grocery aisles. He denies chest pain. He endorses cough without sputum production. He denies wheezing. He denies fever (although he does have a documented T-max of 103 in the emergency department). He denies sick contacts. 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 He has no history of chemotherapy or radiation therapy. This is a new diagnosis. REVIEW OF SYSTEMS: Constitutional: Fever, chills, fatigue, weakness ENT: Denies postnasal drip. Denies rhinitis. Denies rhinorrhea. Denies sinus tenderness. No sore throat. Respiratory: Exertional dyspnea, cough. No hemoptysis. No sputum production. Recent treatment for pneumonia. Cardiovascular: Severe exertional dyspnea. No chest pain. No orthopnea. No palpitations. No presyncope or syncope. Hematologic: New diagnosis of T-cell lymphoma. Gastrointestinal: No nausea. No vomiting. No diarrhea. Skin: Diffuse scattered macular hypopigmented lesions (reported by the patient as remnants of prior scabies infestation). No abnormal bruising. No abnormal bleeding. Neurologic: Left foot pain. No focal weakness. No dizziness. No confusion. No change in mental status. No seizures. Psychiatric: No change in mood. Denies anxiety/depression. Denies hallucinations. PAST MEDICAL HISTORY: * New diagnosis of T-cell lymphoma * Hypertension * Asthma * COPD/chronic bronchitis * Pneumonia * Respiratory failure * Bipolar disorder * Depression PAST SURGICAL HISTORY: * Orthopedic surgery (left great toe) * Left adrenalectomy SOCIAL HISTORY: * Occupational: He is out of work. He used to work with asphalt. * Smoking: Lifetime non-smoker. * Alcohol: Estimates that he drinks approximately 48 ounces of beer daily. Denies history of alcohol withdrawal. * Illicit drugs: Denies. FAMILY HISTORY: Family history reviewed. Noncontributory. ALLERGIES: No known drug allergies. Home Medications: * Vistaril 25 mg p.o. every 8 hours as needed * OxyIR 10 mg p.o. every 6 hours as needed * Tylenol 650 mg p.o. every 4 hours as needed * Tenormin 12.5 mg p.o. daily * Klor-Con 10 mEq tablet ER 20 mEq p.o. twice daily * Prednisone taper Review of systems relevant to events:: Constitutional, respiratory, cardiovascular, GI, hematologic Reason for ICU Addmission:: Hypotension - Medications: Medications reviewed and adjusted accordingly: Yes Vasopressors:: None Sedation:: None. Physical Exam Vital Signs: Temp Pulse Resp BP Pulse Ox 98.7 F 97 19 133/73 H 94 10/09/19 06:00 10/09/19 08:00 10/09/19 08:00 10/09/19 08:00 10/09/19 08:00 Intake & Output 10/08/19 10/09/19 10/10/19 06:59 06:59 06:59 Intake Total 4678 1722 100 Output Total 730 1675 0 Balance 3948 47 100 Weight 65.6 kg 65 kg Weight/Height Weight 65 kg Height 1.52 m General appearance: PRESENT: no acute distress, well-developed, well-nourished Head exam: PRESENT: atraumatic, normocephalic Eye exam: PRESENT: conjunctiva pink, EOMI, PERRLA. ABSENT: scleral icterus Mouth exam: PRESENT: moist, tongue midline Neck exam: ABSENT: carotid bruit, JVD, lymphadenopathy, thyromegaly Respiratory exam: PRESENT: clear to auscultation ramila. ABSENT: rales, rhonchi, wheezes Cardiovascular exam: PRESENT: RRR. ABSENT: diastolic murmur, rubs, systolic murmur Vascular exam: PRESENT: normal capillary refill Extremities exam: PRESENT: full ROM, pedal edema. ABSENT: calf tenderness, clubbing Neurological exam: PRESENT: alert, awake, oriented to person, oriented to place, oriented to time, oriented to situation, CN II-XII grossly intact. ABSENT: motor sensory deficit Psychiatric exam: PRESENT: appropriate affect, normal mood. ABSENT: homicidal ideation, suicidal ideation Skin exam: PRESENT: abrasion - foot bandaged s/p I&D of plantar abscess, dry, intact, warm. ABSENT: cyanosis, rash Tubes/Lines: PRESENT: Central Line - L PICC Laboratory/Radiographs Laboratory Results: 10/09/19 04:45 10/09/19 04:45 10/08/19 10/08/19 10/09/19 11:51 18:12 04:45 WBC RBC Hgb Hct MCV MCH MCHC RDW Plt Count Seg Neutrophils % Sodium 136.2 L Potassium 5.0 4.3 Chloride 103 Carbon Dioxide 23 Anion Gap 10 BUN 28 H Creatinine 0.90 Est GFR ( Amer) > 60 Glucose 98 Calcium 7.5 L Ionized Calcium Tanner Phosphorus 3.9 D Magnesium 2.3 2.6 H 2.7 H Total Bilirubin 0.4 AST 23 Alkaline Phosphatase 74 Total Protein 5.4 L Albumin 2.6 L 10/09/19 10/09/19 04:45 04:45 WBC 16.2 H RBC 2.85 L Hgb 8.1 L Hct 23.7 L MCV 83 MCH 28.4 MCHC 34.2 RDW 18.6 H Plt Count 161 Seg Neutrophils % 82.5 H Sodium Potassium Chloride Carbon Dioxide Anion Gap BUN Creatinine Est GFR ( Amer) Glucose Calcium Ionized Calcium Tanner 1.12 L Phosphorus Magnesium Total Bilirubin AST Alkaline Phosphatase Total Protein Albumin 10/08/19 05:39 Blood Blood Culture (PCR) - Final Staphylococcus Aureus 10/06/19 22:56 Blood Blood Culture (PCR) - Final Staphylococcus Aureus 10/06/19 22:19 Blood Blood Culture (PCR) - Final Staphylococcus Aureus 10/06/19 10/06/19 10/07/19 20:00 20:00 10:19 Troponin I < 0.012 NT-Pro-B Natriuret Pep 4000 H 72078 H Impressions: Chest X-Ray 10/06/19 19:54 IMPRESSION: Bilateral basilar atelectasis and pleural effusions 2 cm nodular density in the right midlung new when compared to prior studies. This may represent area of infiltrate but the possibility of metastatic focus is not excluded. Recommend CT Chest/Abdomen CTA 10/06/19 21:18 IMPRESSION: Negative for pulmonary embolus, thoracic aortic aneurysm, or dissection. Extensive axillary and mediastinal adenopathy, also described previously. Small bilateral pleural effusions. Extensive patchy airspace opacities bilaterally predominantly having a groundglass appearance and likely reflecting pneumonia. Some of the opacities are somewhat nodular as well. While findings may reflect multifocal pneumonia, close follow-up following appropriate therapy is recommended. Metastatic disease is not excluded entirely. TECHNICAL DOCUMENTATION: Quality ID # [id number]: Final reports with documentation of one or more dose reduction techniques (e.g., Automated exposure control, adjustment of the mA and/or kV according to patient size, use of iterative reconstruction technique) copyright 2011 [employer]- All Rights Reserved Abdomen Ultrasound 10/07/19 00:00 IMPRESSION: 1. Limited visualization of the pancreas. 2. No abnormality of the liver, gallbladder and right kidney. 3. Right pleural effusion. Abdomen/Pelvis CT 10/07/19 00:00 IMPRESSION: No acute process is seen within the abdomen or pelvis. Extensive adenopathy is again seen at the bilateral inguinal, retroperitoneal, pelvic lymph nodes. Mild splenomegaly is also noted. Foot X-Ray 10/07/19 10:03 IMPRESSION: 1. Arthrodesis hardware that transfixes the 1st MTP joint. There is no periprosthetic fracture. 2. Dorsal soft tissue swelling. Interventional Vascular Procedure 10/08/19 00:00 IMPRESSION: SUCCESSFUL PLACEMENT OF A 5 FR DUAL LUMEN 36 CM PICC IN THE LEFT BASILIC VEIN. PICC Line Insertion 10/08/19 00:00 IMPRESSION: SUCCESSFUL PLACEMENT OF A 5 FR DUAL LUMEN 36 CM PICC IN THE LEFT BASILIC VEIN. All labs, radiographs, diagnostic studies and EKGs were personally reviewed: Yes In addition, reports of radiographic and diagnostic studies were read: Yes Assessment and Plan - Diagnosis (1) Sepsis Qualifiers: Sepsis type: methicillin resistant Staphylococcus aureus Sepsis acute organ dysfunction status: with acute organ dysfunction Severe sepsis acute organ dysfunction type: unspecified Severe sepsis shock status: with septic shock Qualified Code(s): A41.02 - Sepsis due to Methicillin resistant Staphylococcus aureus; R65.21 - Severe sepsis with septic shock Is this a current diagnosis for this admission?: Yes Plan: Shock physiology resolved. General surgery help appreciated. Continue vancomycin. Duration of therapy will need to be decided after review of subsequent blood culture results. Stop Rocephin/clindamycin after today's doses. Repeat blood culture in a.m. (2) MRSA bacteremia Is this a current diagnosis for this admission?: Yes Plan: Continue vancomycin. Repeat blood cultures in a.m. Check urine drug screen. If blood cultures are still positive from 10/09 sample, endocarditis work-up may need to be pursued. (3) Cellulitis and abscess of foot Is this a current diagnosis for this admission?: Yes Plan: 2x3 cm L plantar (heel) abscess, status post I & D. Empiric coverage with Rocephin/clindamycin/vancomycin. Surgery input appreciated. (4) Abnormal gall bladder diagnostic imaging Is this a current diagnosis for this admission?: Yes (5) Lymphoma, diffuse Is this a current diagnosis for this admission?: Yes Plan: Case discussed with Dr. Yoo. (6) Elevated brain natriuretic peptide (BNP) level Is this a current diagnosis for this admission?: Yes Plan: 2D echocardiographic: LVEF 45%, mild global hypokinesis. Grade I diastolic dysfunction. (7) Bilateral pleural effusion Is this a current diagnosis for this admission?: Yes Plan: Diagnostic thoracentesis may be needed; however, the effusions are quite small at this time. Decubitus CXR. (8) Anemia of chronic disease Is this a current diagnosis for this admission?: Yes (9) Leukocytosis Qualifiers: Leukocytosis type: bandemia Qualified Code(s): D72.825 - Bandemia Is this a current diagnosis for this admission?: Yes (10) Tachycardia Is this a current diagnosis for this admission?: Yes (11) Tachypnea Is this a current diagnosis for this admission?: Yes (12) Abnormal LFTs Is this a current diagnosis for this admission?: Yes Plan Summary: OK to transfer to the floor. Critical Time Critical Time (minutes): 30 Level of Care: ICU -: 1. The care of a critical patient is a dynamic process. This note is a manufacturer representative synopsis but static in nature. The timeframe for treatments given in order is not necessarily the actual time these treatments may have been done. 2. This patient requires critical care secondary to ongoing requirements for therapy not offered or safe outside the critical care environment. Transfer to a lower level of care will result in altered life or limb morbidity and mortality. 3. Multidisciplinary rounds completed. 4. ABCDE bundle addressed.
[2019-10-09] MEDS: ACETAMINOPHEN 325 MG TABLET PO PRN ×2 (11:56→21:20)
--- NOTE | 2019-10-09 12:12 | RADIOLOGY REPORT (SQ) ---
EXAM DESCRIPTION: CHEST SINGLE VIEW COMPLETED DATE/TIME: 10/09/2019 11:57 am REASON FOR STUDY: pleural effusions COMPARISON: 10/08/2019 NUMBER OF VIEWS: One view. TECHNIQUE: Left side down decubitus chest radiograph. LIMITATIONS: None. FINDINGS: PLEURAL FLUID: Mild free flowing left pleural effusion. HARDWARE: Left approach central venous catheter tip at cavoatrial junction, partially visualized. OTHER: Bibasilar consolidation, similar to prior. IMPRESSION: MILD FREE FLOWING LEFT PLEURAL EFFUSION. STABLE BIBASILAR CONSOLIDATION, LIKELY ATELECTASIS. TECHNICAL DOCUMENTATION: JOB ID: [id number] [employer]- All Rights Reserved EXAM PARAMETERS: TECHNIQUE: Single left lateral decubitus view of the chest acquired. Reading location - IP/workstation name: [email or web address]
[2019-10-09] MEDS ORDERED: DIPH/PERTUSS(ACELL)/TETANUS VAC/PF 0.5 ML SYR (>=10YO) IM ONE (15:30)
--- NOTE | 2019-10-09 16:59 | Progress Note ---
Provider Note Provider Note: Case discussed with AMITA Lara (Hospitalist Service).
[2019-10-09] MEDS: VANCOMYCIN HCL 750 MG in DEXTROSE 5%-WATER 250 ML IV SCH (21:12)
[2019-10-09] MEDS: CEFTRIAXONE 1 GM/D5W RTU 1 GM/50 ML RTUPB IV SCH (21:12)
[2019-10-10] MEDS: ENOXAPARIN SODIUM INJ 40 MG/0.4 ML DISP.SYRIN SUBCUT SCH (09:58)
[2019-10-10] MEDS: ATENOLOL 50 MG TABLET PO SCH (09:58)
[2019-10-10] MEDS: FAMOTIDINE 20 MG TABLET PO SCH ×2 (09:59→21:18)
[2019-10-10] MEDS: VANCOMYCIN HCL 750 MG in DEXTROSE 5%-WATER 250 ML IV SCH ×2 (09:59→21:19)
[2019-10-10 10:35] LABS: VANCOMYCIN,TROUGH 10.7 ug/mL (5.0-20.0)
[2019-10-10] MEDS: IPRATROPIUM/ALBUTEROL 0.5-2.5 MG/3 ML AMPUL NEB PRN (12:56)
[2019-10-10] MEDS: BENZOCAINE/MENTHOL SORE THROAT LOZENGE BUCCAL PRN ×2 (14:00→20:04)
--- NOTE | 2019-10-10 16:33 | PDOC PROGRESS REPORT ---
Subjective Progress Note for:: 10/10/19 Subjective:: Patient complains of dyspnea. He is hoping to be transferred to regular floor soon. He was able to put weight on his foot yesterday and walk a few steps. He is also having epigastric pain. He states that they have changed his diet due to this. Reason For Visit: RESPIRATORY DISTRESS,PNEUMONIA,SEPSIS,LYMPHOMA Physical Exam Vital Signs: Temp Pulse Resp BP Pulse Ox 97.9 F 103 H 27 H 141/69 H 100 10/10/19 01:39 10/10/19 12:59 10/10/19 13:09 10/10/19 13:09 10/10/19 13:09 Intake & Output 10/09/19 10/10/19 10/11/19 06:59 06:59 07:59 Intake Total 1722 1657 600 Output Total 1675 1670 950 Balance 47 -13 350 Weight 65 kg 64.4 kg 64.4 kg General appearance: PRESENT: mild distress, well-developed, well-nourished Head exam: PRESENT: normocephalic Respiratory exam: PRESENT: clear to auscultation ramila, tachypnea Cardiovascular exam: PRESENT: tachycardia. ABSENT: systolic murmur GI/Abdominal exam: PRESENT: firm, tenderness Extremities exam: PRESENT: +1 edema Neurological exam: PRESENT: alert, awake Psychiatric exam: PRESENT: appropriate affect Skin exam: PRESENT: normal color Results Laboratory Results: 10/09/19 04:45 10/10/19 10:05 10/10/19 10:05 Creatinine 0.66 Est GFR ( Amer) > 60 10/09/19 11:03 Sputum Gram Stain - Final 10/06/19 22:56 Blood Blood Culture (PCR) - Final Staphylococcus Aureus 10/06/19 22:56 Blood Blood Culture - Final Mrsa (Meth Resis Staph Aureus) 10/06/19 22:19 Blood Blood Culture (PCR) - Final Staphylococcus Aureus 10/06/19 22:19 Blood Blood Culture - Final Mrsa (Meth Resis Staph Aureus) 10/08/19 05:39 Blood Blood Culture (PCR) - Final Staphylococcus Aureus 10/06/19 10/06/19 10/07/19 20:00 20:00 10:19 Troponin I < 0.012 NT-Pro-B Natriuret Pep 4000 H 46170 H Impressions: Chest/Abdomen CTA 10/06/19 21:18 IMPRESSION: Negative for pulmonary embolus, thoracic aortic aneurysm, or dissection. Extensive axillary and mediastinal adenopathy, also described previously. Small bilateral pleural effusions. Extensive patchy airspace opacities bilaterally predominantly having a groundglass appearance and likely reflecting pneumonia. Some of the opacities are somewhat nodular as well. While findings may reflect multifocal pneumonia, close follow-up following appropriate therapy is recommended. Metastatic disease is not excluded entirely. TECHNICAL DOCUMENTATION: Quality ID # 436: Final reports with documentation of one or more dose reduction techniques (e.g., Automated exposure control, adjustment of the mA and/or kV according to patient size, use of iterative reconstruction technique) copyright 2011 [employer]- All Rights Reserved Abdomen Ultrasound 10/07/19 00:00 IMPRESSION: 1. Limited visualization of the pancreas. 2. No abnormality of the liver, gallbladder and right kidney. 3. Right pleural effusion. Abdomen/Pelvis CT 10/07/19 00:00 IMPRESSION: No acute process is seen within the abdomen or pelvis. Extensive adenopathy is again seen at the bilateral inguinal, retroperitoneal, pelvic lymph nodes. Mild splenomegaly is also noted. Foot X-Ray 10/07/19 10:03 IMPRESSION: 1. Arthrodesis hardware that transfixes the 1st MTP joint. There is no periprosthetic fracture. 2. Dorsal soft tissue swelling. Interventional Vascular Procedure 10/08/19 00:00 IMPRESSION: SUCCESSFUL PLACEMENT OF A 5 FR DUAL LUMEN 36 CM PICC IN THE LEFT BASILIC VEIN. PICC Line Insertion 10/08/19 00:00 IMPRESSION: SUCCESSFUL PLACEMENT OF A 5 FR DUAL LUMEN 36 CM PICC IN THE LEFT BASILIC VEIN. Chest X-Ray 10/09/19 00:00 IMPRESSION: MILD FREE FLOWING LEFT PLEURAL EFFUSION. STABLE BIBASILAR CONSOLIDATION, LIKELY ATELECTASIS. Assessment & Plan - Diagnosis (1) Cellulitis and abscess of foot Is this a current diagnosis for this admission?: Yes Plan: Blood cultures growing MRSA. On appropriate antibiotics. Surgery following. (2) Multifocal pneumonia Is this a current diagnosis for this admission?: Yes Plan: Sepsis has resolved. Continue antibiotics. 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 Watch for tumor lysis. May need transfused pRBCs. Will follow. - Time Time Spent with patient: 15-24 minutes - Plan Summary Plan Summary: Patient was discussed with Dr. Bunn.
--- NOTE | 2019-10-10 16:36 | PDOC CRITICAL CARE PROG REPORT ---
General Date:: 10/10/19 ICU Day:: 4 Hospital Day:: 5 Resuscitation Status: Full Code Events in the past 12 to 24 Hours:: Interim events: No significant interim events. Awaiting transfer to the floor (telemetry). Never required vasopressors. BP improved. On Rocephin (10/05)/clindamycin (10/06)/vancomycin (10/06) pending final culture results. Blood cultures (10/05, 10/07) were both positive for MRSA. The patient has been on vancomycin since 10/07/2019. Repeat blood cultures were obtained today. HISTORY OF PRESENT ILLNESS: This 53-year-old male non-smoker is seen in consultation at the request of Dr. Noel Patricia for recommendations on further evaluation and management of hypotension. The patient was admitted overnight with complaints of increased shortness of breath, nonproductive cough and 1 to 2 days of chills. The patient reports that he went to the grocery store with a family member on the day prior to presentation and was unable to walk up and down the grocery aisles. He denies chest pain. He endorses cough without sputum production. He denies wheezing. He denies fever (although he does have a documented T-max of 103 in the emergency department). He denies sick contacts. 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 He has no history of chemotherapy or radiation therapy. This is a new diagnosis. REVIEW OF SYSTEMS: Constitutional: Fever, chills, fatigue, weakness ENT: Denies postnasal drip. Denies rhinitis. Denies rhinorrhea. Denies sinus tenderness. No sore throat. Respiratory: Exertional dyspnea, cough. No hemoptysis. No sputum production. Recent treatment for pneumonia. Cardiovascular: Severe exertional dyspnea. No chest pain. No orthopnea. No palpitations. No presyncope or syncope. Hematologic: New diagnosis of T-cell lymphoma. Gastrointestinal: No nausea. No vomiting. No diarrhea. Skin: Diffuse scattered macular hypopigmented lesions (reported by the patient as remnants of prior scabies infestation). No abnormal bruising. No abnormal bleeding. Neurologic: Left foot pain. No focal weakness. No dizziness. No confusion. No change in mental status. No seizures. Psychiatric: No change in mood. Denies anxiety/depression. Denies hallucinations. PAST MEDICAL HISTORY: * New diagnosis of T-cell lymphoma * Hypertension * Asthma * COPD/chronic bronchitis * Pneumonia * Respiratory failure * Bipolar disorder * Depression PAST SURGICAL HISTORY: * Orthopedic surgery (left great toe) * Left adrenalectomy SOCIAL HISTORY: * Occupational: He is out of work. He used to work with asphalt. * Smoking: Lifetime non-smoker. * Alcohol: Estimates that he drinks approximately 48 ounces of beer daily. Denies history of alcohol withdrawal. * Illicit drugs: Denies. FAMILY HISTORY: Family history reviewed. Noncontributory. ALLERGIES: No known drug allergies. Home Medications: * Vistaril 25 mg p.o. every 8 hours as needed * OxyIR 10 mg p.o. every 6 hours as needed * Tylenol 650 mg p.o. every 4 hours as needed * Tenormin 12.5 mg p.o. daily * Klor-Con 10 mEq tablet ER 20 mEq p.o. twice daily * Prednisone taper Review of systems relevant to events:: Constitutional, respiratory, cardiovascular, GI, hematologic Reason for ICU Addmission:: Hypotension - Medications: Medications reviewed and adjusted accordingly: Yes Vasopressors:: None Sedation:: None. Physical Exam Vital Signs: Temp Pulse Resp BP Pulse Ox 97.9 F 106 H 20 163/81 H 100 10/10/19 01:39 10/09/19 19:40 10/10/19 06:09 10/10/19 06:09 10/10/19 06:09 Intake & Output 10/09/19 10/10/19 10/11/19 06:59 06:59 07:59 Intake Total 1722 1657 300 Output Total 1675 1670 Balance 47 -13 300 Weight 65 kg 64.4 kg Weight/Height Weight 64.4 kg Height 1.52 m General appearance: PRESENT: no acute distress, well-developed, well-nourished Head exam: PRESENT: atraumatic, normocephalic Eye exam: PRESENT: conjunctiva pink, EOMI, PERRLA. ABSENT: scleral icterus Mouth exam: PRESENT: moist, tongue midline Neck exam: ABSENT: carotid bruit, JVD, lymphadenopathy, thyromegaly Respiratory exam: PRESENT: clear to auscultation ramila. ABSENT: rales, rhonchi, wheezes Cardiovascular exam: PRESENT: bradycardia GI/Abdominal exam: PRESENT: normal bowel sounds, soft. ABSENT: distended, guarding, mass, Harman's sign, rebound, tenderness Extremities exam: PRESENT: full ROM, other - Foot bandaged status post I&D of plantar abscess (left). ABSENT: calf tenderness, clubbing, pedal edema Neurological exam: PRESENT: alert, awake, oriented to person, oriented to place, oriented to time, oriented to situation, CN II-XII grossly intact. ABSENT: motor sensory deficit Skin exam: PRESENT: dry, intact, warm, other - Diffuse, scattered macular hypopigmented lesions (reported by the patient has remnants of prior scabies infestation).. ABSENT: cyanosis, rash Tubes/Lines: PRESENT: Central Line - L PICC Laboratory/Radiographs Laboratory Results: 10/09/19 04:45 10/09/19 04:45 10/07/19 20:23 Foot - Heel Gram Stain - Final 10/07/19 20:23 Foot - Heel Wound Culture - Final Mrsa (Meth Resis Staph Aureus) 10/08/19 05:39 Blood Blood Culture (PCR) - Final Staphylococcus Aureus 10/06/19 10/06/19 10/07/19 20:00 20:00 10:19 Troponin I < 0.012 NT-Pro-B Natriuret Pep 4000 H 26047 H Impressions: Chest/Abdomen CTA 10/06/19 21:18 IMPRESSION: Negative for pulmonary embolus, thoracic aortic aneurysm, or dissection. Extensive axillary and mediastinal adenopathy, also described previously. Small bilateral pleural effusions. Extensive patchy airspace opacities bilaterally predominantly having a groundglass appearance and likely reflecting pneumonia. Some of the opacities are somewhat nodular as well. While findings may reflect multifocal pneumonia, close follow-up following appropriate therapy is recommended. Metastatic disease is not excluded entirely. TECHNICAL DOCUMENTATION: Quality ID # 436: Final reports with documentation of one or more dose reduction techniques (e.g., Automated exposure control, adjustment of the mA and/or kV according to patient size, use of iterative reconstruction technique) copyright 2011 [employer]- All Rights Reserved Abdomen Ultrasound 10/07/19 00:00 IMPRESSION: 1. Limited visualization of the pancreas. 2. No abnormality of the liver, gallbladder and right kidney. 3. Right pleural effusion. Abdomen/Pelvis CT 10/07/19 00:00 IMPRESSION: No acute process is seen within the abdomen or pelvis. Extensive adenopathy is again seen at the bilateral inguinal, retroperitoneal, pelvic lymph nodes. Mild splenomegaly is also noted. Foot X-Ray 10/07/19 10:03 IMPRESSION: 1. Arthrodesis hardware that transfixes the 1st MTP joint. There is no periprosthetic fracture. 2. Dorsal soft tissue swelling. Interventional Vascular Procedure 10/08/19 00:00 IMPRESSION: SUCCESSFUL PLACEMENT OF A 5 FR DUAL LUMEN 36 CM PICC IN THE LEFT BASILIC VEIN. PICC Line Insertion 10/08/19 00:00 IMPRESSION: SUCCESSFUL PLACEMENT OF A 5 FR DUAL LUMEN 36 CM PICC IN THE LEFT BASILIC VEIN. Chest X-Ray 10/09/19 00:00 IMPRESSION: MILD FREE FLOWING LEFT PLEURAL EFFUSION. STABLE BIBASILAR CONSOLIDATION, LIKELY ATELECTASIS. All labs, radiographs, diagnostic studies and EKGs were personally reviewed: Yes In addition, reports of radiographic and diagnostic studies were read: Yes Assessment and Plan - Diagnosis (1) Sepsis Qualifiers: Sepsis type: methicillin resistant Staphylococcus aureus Sepsis acute organ dysfunction status: with acute organ dysfunction Severe sepsis acute organ dysfunction type: unspecified Severe sepsis shock status: with septic shock Qualified Code(s): A41.02 - Sepsis due to Methicillin resistant Staphylococcus aureus; R65.21 - Severe sepsis with septic shock Is this a current diagnosis for this admission?: Yes Plan: Shock physiology resolved. General surgery help appreciated. Continue vancomycin. Duration of therapy will need to be decided after review of subsequent blood culture results. Stop Rocephin/clindamycin. Repeat blood culture in a.m. TdaP vaccine was administered at the bedside yesterday based on the patient's inability to recall his last Td booster (he reported that he suspected it had been more than 10 years). (2) MRSA bacteremia Is this a current diagnosis for this admission?: Yes Plan: Continue vancomycin. Repeat blood cultures. If blood cultures are still positive from 10/09 sample, endocarditis work-up may n eed to be pursued. (3) Cellulitis and abscess of foot Is this a current diagnosis for this admission?: Yes Plan: 2x3 cm L plantar (heel) abscess, status post I & D. Empiric coverage with Rocephin/clindamycin/vancomycin. Surgery input appreciated. (4) Abnormal gall bladder diagnostic imaging Is this a current diagnosis for this admission?: Yes (5) Lymphoma, diffuse Is this a current diagnosis for this admission?: Yes (6) Elevated brain natriuretic peptide (BNP) level Is this a current diagnosis for this admission?: Yes (7) Bilateral pleural effusion Is this a current diagnosis for this admission?: Yes Plan: The effusions remain small. With ongoing clinical improvement, no need to perform thoracentesis at this time. (8) Anemia of chronic disease Is this a current diagnosis for this admission?: Yes (9) Leukocytosis Qualifiers: Leukocytosis type: bandemia Qualified Code(s): D72.825 - Bandemia Is this a current diagnosis for this admission?: Yes Plan: Improving on current antibiotic therapy. (10) Tachypnea Is this a current diagnosis for this admission?: Yes Plan: Resolved (11) Tachycardia Is this a current diagnosis for this admission?: Yes Plan: Resolved (12) Abnormal LFTs Is this a current diagnosis for this admission?: Yes Critical Time Critical Time (minutes): 30 Level of Care: TELE -: 1. The care of a critical patient is a dynamic process. This note is a outreach representative synopsis but static in nature. The timeframe for treatments given in order is not necessarily the actual time these treatments may have been done. 2. This patient requires critical care secondary to ongoing requirements for therapy not offered or safe outside the critical care environment. Transfer to a lower level of care will result in altered life or limb morbidity and mortality. 3. Multidisciplinary rounds completed. 4. ABCDE bundle addressed.
[2019-10-10] MEDS ORDERED: ALLOPURINOL 300 MG TABLET PO ONE (17:30)
[2019-10-10] MEDS: ACETAMINOPHEN 325 MG TABLET PO PRN (18:20)
[2019-10-10] MEDS ORDERED: ALLOPURINOL 300 MG TABLET ONE (18:24)
[2019-10-11 07:17] LABS: ANION GAP 8 (5-19); BLOOD UREA NITROGEN 9 mg/dL (7-20); CALCIUM 7.9 mg/dL (8.4-10.2); CARBON DIOXIDE 27 mmol/L (22-30); CHLORIDE 98 mmol/L (98-107); GLUCOSE 86 mg/dL (75-110)
[2019-10-11] MEDS ORDERED: NORMAL SALINE 10 ML SDV (AFTER EACH USE) IV PRN (07:30)
[2019-10-11 07:41] LABS: ABSOLUTE BASOPHILS # (AUTO) 0.1 10^3/uL (0.0-0.2); ABSOLUTE EOSINOPHILS # (AUTO) 0.3 10^3/uL (0.0-0.6); ABSOLUTE LYMPHOCYTES (AUTO) 2.6 10^3/uL (0.5-4.7); ABSOLUTE MONOCYTES (AUTO) 1.1 10^3/uL (0.1-1.4); ABSOLUTE NEUT (AUTO) 9.7 10^3/uL (1.7-8.2); BASOPHILS % (AUTO) 0.4 % (0-2); EOSINOPHILS % (AUTO) 2.2 % (0-6); HEMATOCRIT 31.2 % (37.9-51.0); MEAN CORPUSCULAR HEMOGLOBIN 26.9 pg (27.0-33.4); MEAN CORPUSCULAR HGB CONC 32.7 g/dL (32.0-36.0); MEAN CORPUSCULAR VOLUME 82 fl (80-97); RED CELL DISTRIBUTION WIDTH 17.5 % (11.5-14.0); SEGMENTED NEUTROPHILS % (AUTO) 70.4 % (42-78); TOTAL CELLS COUNTED % (AUTO) 100 %; WHITE BLOOD COUNT 13.8 10^3/uL (4.0-10.5)
[2019-10-11 07:45] LABS: HEMOGLOBIN 10.2 g/dL (13.5-17.0); PLATELET COUNT 128 10^3/uL (150-450)
--- NOTE | 2019-10-11 07:55 | RADIOLOGY REPORT (SQ) ---
EXAM DESCRIPTION: XR CHEST 1 VIEW COMPLETED DATE/TME: 10/11/2019 06:00 CLINICAL HISTORY: pleural effusions COMPARISON: 10/09/2019 FINDINGS: Single frontal view of the chest. Cardiomediastinal silhouette: Left arm PICC with tip in the SVC. Leads overlie the chest. Cardiac mediastinal silhouette is stable. Lungs: Bilateral pleural effusions. No pneumothorax. There are lower lung airspace opacities. Mildly increased from the comparison study. Bones: Stable. Upper abdomen: Stable. IMPRESSION: 1. Interval increase in bilateral pleural effusions with bibasilar opacities which may be related to pneumonia or pulmonary edema.
[2019-10-11] MEDS ORDERED: FUROSEMIDE INJ/PF 20 MG/2 ML SDV IV ONE (09:24)
[2019-10-11] MEDS: BENZOCAINE/MENTHOL SORE THROAT LOZENGE BUCCAL PRN ×2 (10:49→20:03)
[2019-10-11] MEDS: ALLOPURINOL 300 MG TABLET PO SCH (10:49)
[2019-10-11] MEDS: ACETAMINOPHEN 325 MG TABLET PO PRN ×2 (10:50→20:03)
[2019-10-11] MEDS: ATENOLOL 50 MG TABLET PO SCH (10:50)
[2019-10-11] MEDS: ENOXAPARIN SODIUM INJ 40 MG/0.4 ML DISP.SYRIN SUBCUT SCH (10:51)
[2019-10-11] MEDS: PANTOPRAZOLE SODIUM 40 MG VIAL IV SCH (10:51)
[2019-10-11] MEDS: VANCOMYCIN HCL 750 MG in DEXTROSE 5%-WATER 250 ML IV SCH ×2 (10:52→21:28)
[2019-10-11] MEDS: NYSTATIN/DEXAMETH/DIPHEN SUSP 120 ML PO SCH ×4 (10:52→21:28)
[2019-10-11] MEDS: NORMAL SALINE 10 ML SDV (SCHEDULED) IV SCH ×2 (10:52→21:49)
[2019-10-11] MEDS: IPRATROPIUM/ALBUTEROL 0.5-2.5 MG/3 ML AMPUL NEB PRN (16:40)
--- NOTE | 2019-10-11 17:55 | PDOC CRITICAL CARE PROG REPORT ---
General Date:: 10/11/19 ICU Day:: 5 Hospital Day:: 6 Resuscitation Status: Full Code Events in the past 12 to 24 Hours:: Interim events: No significant interim events. Awaiting transfer to the floor (telemetry). Never required vasopressors. BP improved. On vancomycin (start date: 10/07/2019) for MRSA bactermia and L plantar abscess. Blood cultures (10/05, 10/07) were both positive for MRSA. Blood cultures obtained on 10/09 show no growth to date. He does report increasing dyspnea and exertional dyspnea. HISTORY OF PRESENT ILLNESS: This 53-year-old male non-smoker is seen in consultation at the request of Dr. Noel Patricia for recommendations on further evaluation and management of hypotension. The patient was admitted overnight with complaints of increased shortness of breath, nonproductive cough and 1 to 2 days of chills. The patient reports that he went to the grocery store with a family member on the day prior to presentation and was unable to walk up and down the grocery aisles. He denies chest pain. He endorses cough without sputum production. He denies wheezing. He denies fever (although he does have a documented T-max of 103 in the emergency department). He denies sick contacts. 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 He has no history of chemotherapy or radiation therapy. This is a new diagnosis. REVIEW OF SYSTEMS: Constitutional: Fever, chills, fatigue, weakness ENT: Denies postnasal drip. Denies rhinitis. Denies rhinorrhea. Denies sinus tenderness. No sore throat. Respiratory: Exertional dyspnea, cough. No hemoptysis. No sputum production. Recent treatment for pneumonia. Cardiovascular: Severe exertional dyspnea. No chest pain. No orthopnea. No palpitations. No presyncope or syncope. Hematologic: New diagnosis of T-cell lymphoma. Gastrointestinal: No nausea. No vomiting. No diarrhea. Skin: Diffuse scattered macular hypopigmented lesions (reported by the patient as remnants of prior scabies infestation). No abnormal bruising. No abnormal bleeding. Neurologic: Left foot pain. No focal weakness. No dizziness. No confusion. No change in mental status. No seizures. Psychiatric: No change in mood. Denies anxiety/depression. Denies hallucinations. PAST MEDICAL HISTORY: * New diagnosis of T-cell lymphoma * Hypertension * Asthma * COPD/chronic bronchitis * Pneumonia * Respiratory failure * Bipolar disorder * Depression PAST SURGICAL HISTORY: * Orthopedic surgery (left great toe) * Left adrenalectomy SOCIAL HISTORY: * Occupational: He is out of work. He used to work with asphalt. * Smoking: Lifetime non-smoker. * Alcohol: Estimates that he drinks approximately 48 ounces of beer daily. Denies history of alcohol withdrawal. * Illicit drugs: Denies. FAMILY HISTORY: Family history reviewed. Noncontributory. ALLERGIES: No known drug allergies. Home Medications: * Vistaril 25 mg p.o. every 8 hours as needed * OxyIR 10 mg p.o. every 6 hours as needed * Tylenol 650 mg p.o. every 4 hours as needed * Tenormin 12.5 mg p.o. daily * Klor-Con 10 mEq tablet ER 20 mEq p.o. twice daily * Prednisone taper Review of systems relevant to events:: Constitutional, respiratory, cardiovascular, GI, hematologic Reason for ICU Addmission:: Hypotension - Medications: Medications reviewed and adjusted accordingly: Yes Physical Exam Vital Signs: Temp Pulse Resp BP Pulse Ox 99.2 F 112 H 20 139/61 H 100 10/11/19 03:00 10/10/19 20:00 10/11/19 04:09 10/11/19 04:09 10/11/19 04:09 Intake & Output 10/10/19 10/11/19 10/12/19 05:59 06:59 06:59 Intake Total Output Total Balance Weight Weight/Height Weight 60.7 kg Height 1.52 m General appearance: PRESENT: no acute distress, well-developed, well-nourished Head exam: PRESENT: atraumatic, normocephalic Mouth exam: PRESENT: moist, tongue midline Respiratory exam: PRESENT: crackles - Bases, decreased breath sounds - Bases. ABSENT: rales, rhonchi, wheezes Cardiovascular exam: PRESENT: RRR. ABSENT: diastolic murmur, rubs, systolic murmur Pulses: PRESENT: normal dorsalis pedis pul GI/Abdominal exam: PRESENT: guarding, Harman's sign, normal bowel sounds, soft, tenderness - epigastric band-like tenderness. ABSENT: distended, mass, organolmegaly, rebound Extremities exam: PRESENT: full ROM, pedal edema, tenderness - Overall i mprovement (left ankle), +1 edema. ABSENT: calf tenderness, clubbing Neurological exam: PRESENT: alert, awake, oriented to person, oriented to place, oriented to time, oriented to situation, CN II-XII grossly intact. ABSENT: motor sensory deficit Tubes/Lines: PRESENT: Central Line - L PICC Laboratory/Radiographs Laboratory Results: 10/11/19 05:40 10/11/19 05:40 10/10/19 10/11/19 10/11/19 10:05 05:40 05:40 WBC 13.8 H RBC 3.80 L Hgb 10.2 L D Hct 31.2 L MCV 82 MCH 26.9 L MCHC 32.7 RDW 17.5 H Plt Count 128 L Seg Neutrophils % 70.4 Sodium 132.6 L Potassium 4.0 Chloride 98 Carbon Dioxide 27 Anion Gap 8 BUN 9 Creatinine 0.66 0.62 Est GFR ( Amer) > 60 > 60 Glucose 86 Calcium 7.9 L Magnesium 1.5 L 10/08/19 05:39 Blood Blood Culture (PCR) - Final Staphylococcus Aureus 10/08/19 05:39 Blood Blood Culture - Final Mrsa (Meth Resis Staph Aureus) 10/09/19 11:03 Sputum Gram Stain - Final 10/06/19 22:56 Blood Blood Culture (PCR) - Final Staphylococcus Aureus 10/06/19 22:56 Blood Blood Culture - Final Mrsa (Meth Resis Staph Aureus) 10/06/19 22:19 Blood Blood Culture (PCR) - Final Staphylococcus Aureus 10/06/19 22:19 Blood Blood Culture - Final Mrsa (Meth Resis Staph Aureus) 10/06/19 10/06/19 10/07/19 20:00 20:00 10:19 Troponin I < 0.012 NT-Pro-B Natriuret Pep 4000 H [id number] H 10/11/19 05:40 Troponin I NT-Pro-B Natriuret Pep 61034 H Impressions: Chest/Abdomen CTA 10/06/19 21:18 IMPRESSION: Negative for pulmonary embolus, thoracic aortic aneurysm, or dissection. Extensive axillary and mediastinal adenopathy, also described previously. Small bilateral pleural effusions. Extensive patchy airspace opacities bilaterally predominantly having a groundglass appearance and likely reflecting pneumonia. Some of the opacities are somewhat nodular as well. While findings may reflect multifocal pneumonia, close follow-up following appropriate therapy is recommended. Metastatic disease is not excluded entirely. TECHNICAL DOCUMENTATION: Quality ID # 436: Final reports with documentation of one or more dose reduction techniques (e.g., Automated exposure control, adjustment of the mA and/or kV according to patient size, use of iterative reconstruction technique) copyright 2011 [employer]- All Rights Reserved Abdomen Ultrasound 10/07/19 00:00 IMPRESSION: 1. Limited visualization of the pancreas. 2. No abnormality of the liver, gallbladder and right kidney. 3. Right pleural effusion. Abdomen/Pelvis CT 10/07/19 00:00 IMPRESSION: No acute process is seen within the abdomen or pelvis. Extensive adenopathy is again seen at the bilateral inguinal, retroperitoneal, pelvic lymph nodes. Mild splenomegaly is also noted. Foot X-Ray 10/07/19 10:03 IMPRESSION: 1. Arthrodesis hardware that transfixes the 1st MTP joint. There is no periprosthetic fracture. 2. Dorsal soft tissue swelling. Interventional Vascular Procedure 10/08/19 00:00 IMPRESSION: SUCCESSFUL PLACEMENT OF A 5 FR DUAL LUMEN 36 CM PICC IN THE LEFT BASILIC VEIN. PICC Line Insertion 10/08/19 00:00 IMPRESSION: SUCCESSFUL PLACEMENT OF A 5 FR DUAL LUMEN 36 CM PICC IN THE LEFT BASILIC VEIN. Chest X-Ray 10/11/19 06:00 IMPRESSION: 1. Interval increase in bilateral pleural effusions with bibasilar opacities which may be related to pneumonia or pulmonary edema. All labs, radiographs, diagnostic studies and EKGs were personally reviewed: Yes In addition, reports of radiographic and diagnostic studies were read: Yes Assessment and Plan - Diagnosis (1) Sepsis Qualifiers: Sepsis type: methicillin resistant Staphylococcus aureus Sepsis acute organ dysfunction status: with acute organ dysfunction Severe sepsis acute organ dysfunction type: unspecified Severe sepsis shock status: with septic shock Qualified Code(s): A41.02 - Sepsis due to Methicillin resistant Staphylococcus aureus; R65.21 - Severe sepsis with septic shock Is this a current diagnosis for this admission?: Yes Plan: Shock physiology resolved. General surgery help appreciated. Continue vancomycin. Duration of therapy will need to be decided after review of subsequent blood culture results. Stop Rocephin/clindamycin. Repeat blood culture in a.m. TdaP vaccine was administered (10/08) based on the patient's inability to recall his last Td booster (he reported that he suspected it had been more than 10 years). (2) MRSA bacteremia Is this a current diagnosis for this admission?: Yes Plan: Continue vancomycin. Blood cultures (3/7) show no growth to date. (3) Cellulitis and abscess of foot Is this a current diagnosis for this admission?: Yes (4) Abnormal gall bladder diagnostic imaging Is this a current diagnosis for this admission?: Yes Plan: GB sludge on ultrasound (5) Lymphoma, diffuse Is this a current diagnosis for this admission?: Yes (6) Elevated brain natriuretic peptide (BNP) level Is this a current diagnosis for this admission?: Yes (7) Bilateral pleural effusion Is this a current diagnosis for this admission?: Yes (8) Anemia of chronic disease Is this a current diagnosis for this admission?: Yes (9) Leukocytosis Qualifiers: Leukocytosis type: bandemia Qualified Code(s): D72.825 - Bandemia Is this a current diagnosis for this admission?: Yes (10) Tachypnea Is this a current diagnosis for this admission?: Yes (11) Tachycardia Is this a current diagnosis for this admission?: Yes (12) Abnormal LFTs Is this a current diagnosis for this admission?: Yes Critical Time Critical Time (minutes): 30 Level of Care: TELE -: 1. The care of a critical patient is a dynamic process. This note is a disability representative synopsis but static in nature. The timeframe for treatments given in order is not necessarily the actual time these treatments may have been done. 2. This patient requires critical care secondary to ongoing requirements for therapy not offered or safe outside the critical care environment. Transfer to a lower level of care will result in altered life or limb morbidity and mortality. 3. Multidisciplinary rounds completed. 4. ABCDE bundle addressed.
[2019-10-11 22:11] LABS: VANCOMYCIN,TROUGH 12.2 ug/mL (5.0-20.0)
[2019-10-12 04:21] LABS: ABSOLUTE EOSINOPHILS # (AUTO) 0.3 10^3/uL (0.0-0.6); ABSOLUTE LYMPHOCYTES (AUTO) 1.5 10^3/uL (0.5-4.7); ABSOLUTE MONOCYTES (AUTO) 0.9 10^3/uL (0.1-1.4); ABSOLUTE NEUT (AUTO) 8.2 10^3/uL (1.7-8.2); BASOPHILS % (AUTO) 0.4 % (0-2); EOSINOPHILS % (AUTO) 2.5 % (0-6); HEMATOCRIT 29.9 % (37.9-51.0); HEMOGLOBIN 9.9 g/dL (13.5-17.0); MEAN CORPUSCULAR HEMOGLOBIN 27.1 pg (27.0-33.4); MEAN CORPUSCULAR VOLUME 82 fl (80-97); MONOCYTES % (AUTO) 8.1 % (3-13); PLATELET COUNT 164 10^3/uL (150-450); RED BLOOD COUNT 3.65 10^6/uL (4.35-5.55); RED CELL DISTRIBUTION WIDTH 17.7 % (11.5-14.0); TOTAL CELLS COUNTED % (AUTO) 100 %
[2019-10-12 04:40] LABS: ANION GAP 8 (5-19); BLOOD UREA NITROGEN 7 mg/dL (7-20); CALCIUM 7.7 mg/dL (8.4-10.2); CARBON DIOXIDE 28 mmol/L (22-30); CHLORIDE 94 mmol/L (98-107); GLUCOSE 86 mg/dL (75-110); POTASSIUM 4.1 mmol/L (3.6-5.0)
--- NOTE | 2019-10-12 08:17 | PDOC PROGRESS REPORT ---
Subjective Progress Note for:: 10/12/19 Subjective:: Patient seems to be doing better today, has not gotten up yet, discussed with nursing to get PT to get him up today. Reason For Visit: RESPIRATORY DISTRESS,PNEUMONIA,SEPSIS,LYMPHOMA Physical Exam Vital Signs: Temp Pulse Resp BP Pulse Ox 99.6 F 91 18 161/67 H 99 10/12/19 04:07 10/11/19 20:00 10/12/19 04:00 10/12/19 02:09 10/12/19 04:00 Intake & Output 10/11/19 10/12/19 10/13/19 06:59 06:59 06:59 Intake Total 650 Output Total 2160 Balance -1510 Weight 57.1 kg General appearance: PRESENT: no acute distress, well-developed, well-nourished Head exam: PRESENT: atraumatic, normocephalic Eye exam: PRESENT: conjunctiva pink, EOMI, PERRLA. ABSENT: scleral icterus Ear exam: PRESENT: normal external ear exam Mouth exam: PRESENT: moist, tongue midline Neck exam: ABSENT: carotid bruit, JVD, lymphadenopathy, thyromegaly Respiratory exam: PRESENT: clear to auscultation ramila. ABSENT: rales, rhonchi, wheezes Cardiovascular exam: PRESENT: RRR. ABSENT: diastolic murmur, rubs, systolic murmur Pulses: PRESENT: normal dorsalis pedis pul Vascular exam: PRESENT: normal capillary refill GI/Abdominal exam: PRESENT: normal bowel sounds, soft. ABSENT: distended, guarding, mass, organolmegaly, rebound, tenderness Rectal exam: PRESENT: deferred Extremities exam: PRESENT: full ROM. ABSENT: calf tenderness, clubbing, pedal edema Neurological exam: PRESENT: alert, awake, oriented to person, oriented to place, oriented to time, oriented to situation, CN II-XII grossly intact. ABSENT: motor sensory deficit Psychiatric exam: PRESENT: appropriate affect, normal mood. ABSENT: homicidal ideation, suicidal ideation Skin exam: PRESENT: dry, intact, warm. ABSENT: cyanosis, rash Results Laboratory Results: 10/12/19 04:04 10/12/19 04:04 10/12/19 10/12/19 04:04 04:04 WBC 11.0 H RBC 3.65 L Hgb 9.9 L Hct 29.9 L MCV 82 MCH 27.1 MCHC 33.0 RDW 17.7 H Plt Count 164 Seg Neutrophils % 75.0 Sodium 130.4 L Potassium 4.1 Chloride 94 L Carbon Dioxide 28 Anion Gap 8 BUN 7 Creatinine 0.65 Est GFR ( Amer) > 60 Glucose 86 Calcium 7.7 L Magnesium 1.5 L 10/09/19 11:03 Sputum Gram Stain - Final 10/09/19 11:03 Sputum Sputum Culture - Final C.albicans/C.dubliniensis Greatly Reduced Normal Molly 10/08/19 05:39 Blood Blood Culture (PCR) - Final Staphylococcus Aureus 10/08/19 05:39 Blood Blood Culture - Final Mrsa (Meth Resis Staph Aureus) 10/06/19 10/06/19 10/07/19 20:00 20:00 10:19 Troponin I < 0.012 NT-Pro-B Natriuret Pep 4000 H 79745 H 10/11/19 05:40 Troponin I NT-Pro-B Natriuret Pep 98732 H Impressions: Chest/Abdomen CTA 10/06/19 21:18 IMPRESSION: Negative for pulmonary embolus, thoracic aortic aneurysm, or dissection. Extensive axillary and mediastinal adenopathy, also described previously. Small bilateral pleural effusions. Extensive patchy airspace opacities bilaterally predominantly having a groundglass appearance and likely reflecting pneumonia. Some of the opacities are somewhat nodular as well. While findings may reflect multifocal pneumonia, close follow-up following appropriate therapy is recommended. Metastatic disease is not excluded entirely. TECHNICAL DOCUMENTATION: Quality ID # 436: Final reports with documentation of one or more dose reduction techniques (e.g., Automated exposure control, adjustment of the mA and/or kV according to patient size, use of iterative reconstruction technique) copyright 2011 [employer]- All Rights Reserved Abdomen Ultrasound 10/07/19 00:00 IMPRESSION: 1. Limited visualization of the pancreas. 2. No abnormality of the liver, gallbladder and right kidney. 3. Right pleural effusion. Abdomen/Pelvis CT 10/07/19 00:00 IMPRESSION: No acute process is seen within the abdomen or pelvis. Extensive adenopathy is again seen at the bilateral inguinal, retroperitoneal, pelvic lymph nodes. Mild splenomegaly is also noted. Foot X-Ray 10/07/19 10:03 IMPRESSION: 1. Arthrodesis hardware that transfixes the 1st MTP joint. There is no periprosthetic fracture. 2. Dorsal soft tissue swelling. Interventional Vascular Procedure 10/08/19 00:00 IMPRESSION: SUCCESSFUL PLACEMENT OF A 5 FR DUAL LUMEN 36 CM PICC IN THE LEFT BASILIC VEIN. PICC Line Insertion 10/08/19 00:00 IMPRESSION: SUCCESSFUL PLACEMENT OF A 5 FR DUAL LUMEN 36 CM PICC IN THE LEFT BASILIC VEIN. Chest X-Ray 10/11/19 06:00 IMPRESSION: 1. Interval increase in bilateral pleural effusions with bibasilar opacities which may be related to pneumonia or pulmonary edema. 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 Hopeful initiation of therapy within 1 to 2 weeks. (3) Leukocytosis Qualifiers: Leukocytosis type: bandemia Qualified Code(s): D72.825 - Bandemia Is this a current diagnosis for this admission?: Yes Plan: Secondary to infection in part, continue to monitor (4) Cellulitis and abscess of foot Is this a current diagnosis for this admission?: Yes Plan: Continue antibiotic (5) MRSA bacteremia Is this a current diagnosis for this admission?: Yes Plan: Continue antibiotic - Time Time Spent with patient: 35 or more minutes
[2019-10-12] MEDS: PANTOPRAZOLE SODIUM 40 MG VIAL IV SCH (10:14)
[2019-10-12] MEDS: ENOXAPARIN SODIUM INJ 40 MG/0.4 ML DISP.SYRIN SUBCUT SCH (10:14)
[2019-10-12] MEDS: NYSTATIN/DEXAMETH/DIPHEN SUSP 120 ML PO SCH ×4 (10:14→21:19)
[2019-10-12] MEDS: ALBUTEROL SULFATE HFA (90 MCG/PUFF) 8 GM MDI IH PRN (10:14)
[2019-10-12] MEDS: ALLOPURINOL 300 MG TABLET PO SCH (10:15)
[2019-10-12] MEDS: ATENOLOL 50 MG TABLET PO SCH (10:15)
[2019-10-12] MEDS: VANCOMYCIN HCL 1,000 MG in DEXTROSE 5%-WATER 250 ML IV SCH ×2 (10:16→21:23)
--- NOTE | 2019-10-12 12:12 | PDOC CRITICAL CARE PROG REPORT ---
General Date:: 10/12/19 Hospital Day:: 5 Resuscitation Status: Full Code Events in the past 12 to 24 Hours:: Ready for downgrade bed. Review of systems relevant to events:: Pulmonary Reason for ICU Addmission:: Hypotension now resolved. - Medications: Medications reviewed and adjusted accordingly: Yes Vasopressors:: None Sedation:: None. Physical Exam Vital Signs: Temp Pulse Resp BP Pulse Ox 98.2 F 86 19 123/58 L 99 10/12/19 08:00 10/12/19 08:00 10/12/19 08:00 10/12/19 08:00 10/12/19 08:00 Intake & Output 10/11/19 10/12/19 10/13/19 06:59 06:59 06:59 Intake Total 650 Output Total 2160 Balance -1510 Weight 57.1 kg Weight/Height Weight 57.1 kg Height 5 ft General appearance: PRESENT: no acute distress, well-developed, well-nourished Head exam: PRESENT: atraumatic, normocephalic Eye exam: PRESENT: conjunctiva pink, EOMI, PERRLA. ABSENT: scleral icterus Ear exam: PRESENT: normal external ear exam Mouth exam: PRESENT: moist, tongue midline Respiratory exam: PRESENT: clear to auscultation ramila, crackles. ABSENT: rales, rhonchi, wheezes Cardiovascular exam: PRESENT: RRR. ABSENT: diastolic murmur, rubs, systolic murmur GI/Abdominal exam: PRESENT: normal bowel sounds, soft. ABSENT: distended, guarding, mass, organolmegaly, rebound, tenderness Rectal exam: PRESENT: deferred Gentrourinary exam: PRESENT: indwelling catheter Extremities exam: PRESENT: full ROM. ABSENT: calf tenderness, clubbing, pedal e cam Musculoskeletal exam: PRESENT: normal inspection Neurological exam: PRESENT: alert, awake, oriented to person, oriented to place, oriented to time, oriented to situation, CN II-XII grossly intact. ABSENT: motor sensory deficit Psychiatric exam: PRESENT: appropriate affect, normal mood. ABSENT: homicidal ideation, suicidal ideation Skin exam: PRESENT: dry, intact, warm. ABSENT: cyanosis, rash Laboratory/Radiographs Laboratory Results: 10/12/19 04:04 10/12/19 04:04 10/12/19 10/12/19 04:04 04:04 WBC 11.0 H RBC 3.65 L Hgb 9.9 L Hct 29.9 L MCV 82 MCH 27.1 MCHC 33.0 RDW 17.7 H Plt Count 164 Seg Neutrophils % 75.0 Sodium 130.4 L Potassium 4.1 Chloride 94 L Carbon Dioxide 28 Anion Gap 8 BUN 7 Creatinine 0.65 Est GFR ( Amer) > 60 Glucose 86 Calcium 7.7 L Magnesium 1.5 L 10/09/19 11:03 Sputum Gram Stain - Final 10/09/19 11:03 Sputum Sputum Culture - Final C.albicans/C.dubliniensis Greatly Reduced Normal Molly 10/08/19 05:39 Blood Blood Culture (PCR) - Final Staphylococcus Aureus 10/08/19 05:39 Blood Blood Culture - Final Mrsa (Meth Resis Staph Aureus) 10/06/19 10/06/19 10/07/19 20:00 20:00 10:19 Troponin I < 0.012 NT-Pro-B Natriuret Pep 4000 H 53399 H 10/11/19 05:40 Troponin I NT-Pro-B Natriuret Pep 66174 H Impressions: Chest/Abdomen CTA 10/06/19 21:18 IMPRESSION: Negative for pulmonary embolus, thoracic aortic aneurysm, or dissection. Extensive axillary and mediastinal adenopathy, also described previously. Small bilateral pleural effusions. Extensive patchy airspace opacities bilaterally predominantly having a groundglass appearance and likely reflecting pneumonia. Some of the opacities are somewhat nodular as well. While findings may reflect multifocal pneumonia, close follow-up following appropriate therapy is recommended. Metastatic disease is not excluded entirely. TECHNICAL DOCUMENTATION: Quality ID # 436: Final reports with documentation of one or more dose reduction techniques (e.g., Automated exposure control, adjustment of the mA and/or kV according to patient size, use of iterative reconstruction technique) copyright 2011 [employer]- All Rights Reserved Abdomen Ultrasound 10/07/19 00:00 IMPRESSION: 1. Limited visualization of the pancreas. 2. No abnormality of the liver, gallbladder and right kidney. 3. Right pleural effusion. Abdomen/Pelvis CT 10/07/19 00:00 IMPRESSION: No acute process is seen within the abdomen or pelvis. Extensive adenopathy is again seen at the bilateral inguinal, retroperitoneal, pelvic lymph nodes. Mild splenomegaly is also noted. Foot X-Ray 10/07/19 10:03 IMPRESSION: 1. Arthrodesis hardware that transfixes the 1st MTP joint. There is no periprosthetic fracture. 2. Dorsal soft tissue swelling. Interventional Vascular Procedure 10/08/19 00:00 IMPRESSION: SUCCESSFUL PLACEMENT OF A 5 FR DUAL LUMEN 36 CM PICC IN THE LEFT BASILIC VEIN. PICC Line Insertion 10/08/19 00:00 IMPRESSION: SUCCESSFUL PLACEMENT OF A 5 FR DUAL LUMEN 36 CM PICC IN THE LEFT BASILIC VEIN. Chest X-Ray 10/11/19 06:00 IMPRESSION: 1. Interval increase in bilateral pleural effusions with bibasilar opacities which may be related to pneumonia or pulmonary edema. All labs, radiographs, diagnostic studies and EKGs were personally reviewed: Yes In addition, reports of radiographic and diagnostic studies were read: Yes Assessment and Plan - Diagnosis (1) Cellulitis and abscess of foot Is this a current diagnosis for this admission?: Yes Plan: On vancomycin IV (2) MRSA bacteremia Is this a current diagnosis for this admission?: Yes Plan: Will continue vancomycin for 7 days total. Repeat BC so far are clear. 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 (4) Abnormal LFTs Is this a current diagnosis for this admission?: Yes Plan: Resolved (5) Anemia of chronic disease Is this a current diagnosis for this admission?: Yes Plan: Stable, no ashley to transfuse. (6) Bilateral pleural effusion Is this a current diagnosis for this admission?: Yes Plan: Not effecting his breathing. (7) Elevated brain natriuretic peptide (BNP) level Is this a current diagnosis for this admission?: Yes Plan: Unsure of the reason for this. Plan Summary: Awaiting a medical bed. Critical Time Critical Time (minutes): 30 Level of Care: MEDICAL Anticipated discharge: Home Within: within 72 hours -: 1. The care of a critical patient is a dynamic process. This note is a disability representative synopsis but static in nature. The timeframe for treatments given in order is not necessarily the actual time these treatments may have been done. 2. This patient requires critical care secondary to ongoing requirements for therapy not offered or safe outside the critical care environment. Transfer to a lower level of care will result in altered life or limb morbidity and mortality. 3. Multidisciplinary rounds completed. 4. ABCDE bundle addressed.
[2019-10-12] MEDS: NORMAL SALINE 10 ML SDV (SCHEDULED) IV SCH ×2 (15:28→21:19)
[2019-10-12] MEDS ORDERED: HYDROCODONE/ACETAMINOPHEN 5-325 MG (6 TAB/ER DISP) PO PRN (17:55)
[2019-10-12] MEDS: ACETAMINOPHEN 325 MG TABLET PO PRN (22:34)
[2019-10-12] MEDS: HYDROCODONE/ACETAMINOPHEN 5-325 MG TABLET PO PRN (23:53)
[2019-10-13 04:37] LABS: ANION GAP 9 (5-19); BLOOD UREA NITROGEN 8 mg/dL (7-20); CALCIUM 8.2 mg/dL (8.4-10.2); CARBON DIOXIDE 27 mmol/L (22-30); CHLORIDE 98 mmol/L (98-107); GLUCOSE 117 mg/dL (75-110); POTASSIUM 4.1 mmol/L (3.6-5.0)
--- NOTE | 2019-10-13 08:31 | PDOC PROGRESS REPORT ---
Subjective Progress Note for:: 10/13/19 Subjective:: Patient is feeling much better. He is anxious to get up out of bed and walk around. This did not happen yesterday, but he is hoping PT will come today. ROS: No dyspnea. Good BMs. No nausea. No ankle pain. Reason For Visit: RESPIRATORY DISTRESS,PNEUMONIA,SEPSIS,LYMPHOMA Physical Exam Vital Signs: Temp Pulse Resp BP Pulse Ox 99.4 F 85 21 H 151/91 H 100 10/13/19 07:29 10/13/19 07:48 10/13/19 07:29 10/13/19 07:29 10/13/19 07:29 Intake & Output 10/12/19 10/13/19 10/14/19 06:59 06:59 06:59 Intake Total 650 500 Output Total 2160 1510 Balance -1510 -1010 Weight 57.1 kg 54.9 kg General appearance: PRESENT: no acute distress Eye exam: PRESENT: EOMI Respiratory exam: PRESENT: clear to auscultation ramila, unlabored Cardiovascular exam: PRESENT: RRR GI/Abdominal exam: PRESENT: normal bowel sounds, soft Extremities exam: ABSENT: pedal edema Neurological exam: PRESENT: alert, awake, oriented to person, oriented to place, oriented to time, oriented to situation Psychiatric exam: PRESENT: appropriate affect Skin exam: PRESENT: normal color Results Laboratory Results: 10/12/19 04:04 10/13/19 04:05 10/13/19 04:05 Sodium 133.8 L Potassium 4.1 Chloride 98 Carbon Dioxide 27 Anion Gap 9 BUN 8 Creatinine 0.66 Est GFR ( Amer) > 60 Glucose 117 H Calcium 8.2 L 10/08/19 01:38 Blood Blood Culture - Final NO GROWTH IN 5 DAYS 10/06/19 10/06/19 10/07/19 20:00 20:00 10:19 Troponin I < 0.012 NT-Pro-B Natriuret Pep 4000 H 10667 H 10/11/19 05:40 Troponin I NT-Pro-B Natriuret Pep 44109 H Impressions: Chest/Abdomen CTA 10/06/19 21:18 IMPRESSION: Negative for pulmonary embolus, thoracic aortic aneurysm, or dissection. Extensive axillary and mediastinal adenopathy, also described previously. Small bilateral pleural effusions. Extensive patchy airspace opacities bilaterally predominantly having a groundglass appearance and likely reflecting pneumonia. Some of the opacities are somewhat nodular as well. While findings may reflect multifocal pneumonia, close follow-up following appropriate therapy is recommended. Metastatic disease is not excluded entirely. TECHNICAL DOCUMENTATION: Quality ID # [id number]: Final reports with documentation of one or more dose reduction techniques (e.g., Automated exposure control, adjustment of the mA and/or kV according to patient size, use of iterative reconstruction technique) copyright 2011 [employer]- All Rights Reserved Abdomen Ultrasound 10/07/19 00:00 IMPRESSION: 1. Limited visualization of the pancreas. 2. No abnormality of the liver, gallbladder and right kidney. 3. Right pleural effusion. Abdomen/Pelvis CT 10/07/19 00:00 IMPRESSION: No acute process is seen within the abdomen or pelvis. Extensive adenopathy is again seen at the bilateral inguinal, retroperitoneal, pelvic lymph nodes. Mild splenomegaly is also noted. Foot X-Ray 10/07/19 10:03 IMPRESSION: 1. Arthrodesis hardware that transfixes the 1st MTP joint. There is no periprosthetic fracture. 2. Dorsal soft tissue swelling. Interventional Vascular Procedure 10/08/19 00:00 IMPRESSION: SUCCESSFUL PLACEMENT OF A 5 FR DUAL LUMEN 36 CM PICC IN THE LEFT BASILIC VEIN. PICC Line Insertion 10/08/19 00:00 IMPRESSION: SUCCESSFUL PLACEMENT OF A 5 FR DUAL LUMEN 36 CM PICC IN THE LEFT BASILIC VEIN. Chest X-Ray 10/11/19 06:00 IMPRESSION: 1. Interval increase in bilateral pleural effusions with bibasilar opacities which may be related to pneumonia or pulmonary edema. Assessment & Plan - Diagnosis (1) Cellulitis and abscess of foot Is this a current diagnosis for this admission?: Yes Plan: Remains on antibiotics for this. (2) Multifocal pneumonia Is this a current diagnosis for this admission?: Yes Plan: Blood cultures are now negative so far. Continue Antibiotics per quilting supervisor. He is awaiting a regular floor bed. 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 Plan to start chemo after antibiotics have finished. - Time Time Spent with patient: 15-24 minutes - Plan Summary Plan Summary: He is much improved. Agree with plans to increase activity.
[2019-10-13] MEDS: IPRATROPIUM/ALBUTEROL 0.5-2.5 MG/3 ML AMPUL NEB PRN (08:41)
[2019-10-13] MEDS: VANCOMYCIN HCL 1,000 MG in DEXTROSE 5%-WATER 250 ML IV SCH ×2 (10:09→23:04)
[2019-10-13] MEDS: ENOXAPARIN SODIUM INJ 40 MG/0.4 ML DISP.SYRIN SUBCUT SCH (10:10)
[2019-10-13] MEDS: ATENOLOL 50 MG TABLET PO SCH (10:10)
[2019-10-13] MEDS: ALLOPURINOL 300 MG TABLET PO SCH (10:10)
[2019-10-13] MEDS ORDERED: PANTOPRAZOLE SODIUM 40 MG VIAL IV ONE (10:11)
[2019-10-13] MEDS: NORMAL SALINE 10 ML SDV (SCHEDULED) IV SCH ×2 (10:12→23:15)
[2019-10-13] MEDS ORDERED: PANTOPRAZOLE SODIUM 40 MG TABLET.DR PO ONE (10:13)
[2019-10-13] MEDS: PANTOPRAZOLE SODIUM 40 MG TABLET.DR PO SCH (10:14)
[2019-10-13] MEDS: NYSTATIN/DEXAMETH/DIPHEN SUSP 120 ML PO SCH ×4 (10:15→23:03)
--- NOTE | 2019-10-13 11:15 | PDOC CRITICAL CARE PROG REPORT ---
General Date:: 10/13/19 Hospital Day:: 6 Resuscitation Status: Full Code Events in the past 12 to 24 Hours:: Needs to get OOB and walk. Review of systems relevant to events:: Pulmonary Reason for ICU Addmission:: Hypotension now resolved. - Medications: Medications reviewed and adjusted accordingly: Yes Vasopressors:: None Sedation:: None Physical Exam Vital Signs: Temp Pulse Resp BP Pulse Ox 99.4 F 88 18 151/91 H 92 10/13/19 07:29 10/13/19 08:41 10/13/19 08:41 10/13/19 07:29 10/13/19 08:41 Intake & Output 10/12/19 10/13/19 10/14/19 06:59 06:59 06:59 Intake Total 650 500 Output Total 2160 1510 Balance -1510 -1010 Weight 57.1 kg 54.9 kg Weight/Height Weight 54.9 kg Height 5 ft General appearance: PRESENT: no acute distress, well-developed, well-nourished Head exam: PRESENT: atraumatic, normocephalic Eye exam: PRESENT: conjunctiva pink, EOMI, PERRLA. ABSENT: scleral icterus Ear exam: PRESENT: normal external ear exam Mouth exam: PRESENT: moist, tongue midline Respiratory exam: PRESENT: clear to auscultation ramila. ABSENT: rales, rhonchi, wheezes Cardiovascular exam: PRESENT: RRR. ABSENT: diastolic murmur, rubs, systolic murmur GI/Abdominal exam: PRESENT: normal bowel sounds, soft. ABSENT: distended, guarding, mass, organolmegaly, rebound, tenderness Rectal exam: PRESENT: deferred Extremities exam: PRESENT: full ROM, other - L heel wound clean, no redness or drainage.. ABSENT: calf tenderness, clubbing, pedal edema Musculoskeletal exam: PRESENT: full ROM Neurological exam: PRESENT: alert, awake, oriented to person, oriented to place, oriented to time, oriented to situation, CN II-XII grossly intact. ABSENT: motor sensory deficit Psychiatric exam: PRESENT: appropriate affect, normal mood. ABSENT: homicidal ideation, suicidal ideation Skin exam: PRESENT: dry, intact, warm. ABSENT: cyanosis, rash Laboratory/Radiographs Laboratory Results: 10/12/19 04:04 10/13/19 04:05 03/10/20 04:05 Sodium 133.8 L Potassium 4.1 Chloride 98 Carbon Dioxide 27 Anion Gap 9 BUN 8 Creatinine 0.66 Est GFR ( Amer) > 60 Glucose 117 H Calcium 8.2 L 10/08/19 01:38 Blood Blood Culture - Final NO GROWTH IN 5 DAYS 10/06/19 10/06/19 10/07/19 20:00 20:00 10:19 Troponin I < 0.012 NT-Pro-B Natriuret Pep 4000 H [id number] H 10/11/19 05:40 Troponin I NT-Pro-B Natriuret Pep [id number] H Impressions: Chest/Abdomen CTA 10/06/19 21:18 IMPRESSION: Negative for pulmonary embolus, thoracic aortic aneurysm, or dissection. Extensive axillary and mediastinal adenopathy, also described previously. Small bilateral pleural effusions. Extensive patchy airspace opacities bilaterally predominantly having a groundglass appearance and likely reflecting pneumonia. Some of the opacities are somewhat nodular as well. While findings may reflect multifocal pneumonia, close follow-up following appropriate therapy is recommended. Metastatic disease is not excluded entirely. TECHNICAL DOCUMENTATION: Quality ID # 436: Final reports with documentation of one or more dose reduction techniques (e.g., Automated exposure control, adjustment of the mA and/or kV according to patient size, use of iterative reconstruction technique) copyright 2011 [employer]- All Rights Reserved Abdomen Ultrasound 10/07/19 00:00 IMPRESSION: 1. Limited visualization of the pancreas. 2. No abnormality of the liver, gallbladder and right kidney. 3. Right pleural effusion. Abdomen/Pelvis CT 10/07/19 00:00 IMPRESSION: No acute process is seen within the abdomen or pelvis. Extensive adenopathy is again seen at the bilateral inguinal, retroperitoneal, pelvic lymph nodes. Mild splenomegaly is also noted. Foot X-Ray 10/07/19 10:03 IMPRESSION: 1. Arthrodesis hardware that transfixes the 1st MTP joint. There is no periprosthetic fracture. 2. Dorsal soft tissue swelling. Interventional Vascular Procedure 10/08/19 00:00 IMPRESSION: SUCCESSFUL PLACEMENT OF A 5 FR DUAL LUMEN 36 CM PICC IN THE LEFT BASILIC VEIN. PICC Line Insertion 10/08/19 00:00 IMPRESSION: SUCCESSFUL PLACEMENT OF A 5 FR DUAL LUMEN 36 CM PICC IN THE LEFT BASILIC VEIN. Chest X-Ray 10/11/19 06:00 IMPRESSION: 1. Interval increase in bilateral pleural effusions with bibasilar opacities which may be related to pneumonia or pulmonary edema. All labs, radiographs, diagnostic studies and EKGs were personally reviewed: Yes In addition, reports of radiographic and diagnostic studies were read: Yes Assessment and Plan - Diagnosis (1) Cellulitis and abscess of foot Is this a current diagnosis for this admission?: Yes Plan: He needs to get OOB and walk. If he is stable on feet and not SOB, will plan discharge home. (2) MRSA bacteremia Is this a current diagnosis for this admission?: Yes Plan: Recent cultures show no growth so far. 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 (7) Elevated brain natriuretic peptide (BNP) level Is this a current diagnosis for this admission?: Yes Plan: Not clinically apparent. Recheck in AM. Plan Summary: Get OOB with PT and boot. Assess ability to go home. Critical Time Critical Time (minutes): 25 Level of Care: MEDICAL Anticipated discharge: Home Within: within 48 hours -: 1. The care of a critical patient is a dynamic process. This note is a route sales representative synopsis but static in nature. The timeframe for treatments given in order is not necessarily the actual time these treatments may have been done. 2. This patient requires critical care secondary to ongoing requirements for therapy not offered or safe outside the critical care environment. Transfer to a lower level of care will result in altered life or limb morbidity and mortality. 3. Multidisciplinary rounds completed. 4. ABCDE bundle addressed.
[2019-10-13] MEDS: FUROSEMIDE 40 MG TABLET PO SCH (13:24)
--- NOTE | 2019-10-13 16:05 | Progress Note ---
Provider Note Provider Note: ICU downgrade to medical floor. Received signout from dry dip worker. Accepting patient on the hospitalist service. Briefly, patient is 54-year-old man with a history of recently diagnosed T-cell lymphoma on steroids at home, who presented to the hospital with cellulitis and abscess of the foot left foot. Later noted to have MRSA bacteremia. Was taken to the ICU due to hypotension. Has been receiving antibiotics. Currently on vancomycin IV and blood cultures have been negative for over 72 hours now. Working on Medicaid coverage for patients. Patient currently doing well and off all fluids. Not on any pressors at this time. Has no complaints and states that his breathing is normal. Satting well on room air. Vital signs are stable at this time. Physical exam shows crackles mostly right lung but no labored breathing and no accessory muscle use. S1/S2 without any audible murmurs. Left foot in clean dressing. A/P-for patient's MRSA bacteremia, will continue IV vancomycin. TTE done. Consult ID. For patient's abscess of left foot, he is status post I&D. Continue treatments as above. T-cell lymphoma-oncology following.
[2019-10-13] MEDS: ACETAMINOPHEN 325 MG TABLET PO PRN (23:10)
[2019-10-14] MEDS: PANTOPRAZOLE SODIUM 40 MG TABLET.DR PO SCH (06:09)
[2019-10-14 06:24] LABS: ABSOLUTE EOSINOPHILS # (AUTO) 0.4 10^3/uL (0.0-0.6); ABSOLUTE LYMPHOCYTES (AUTO) 1.1 10^3/uL (0.5-4.7); ABSOLUTE MONOCYTES (AUTO) 0.7 10^3/uL (0.1-1.4); ABSOLUTE NEUT (AUTO) 6.7 10^3/uL (1.7-8.2); BASOPHILS % (AUTO) 0.4 % (0-2); EOSINOPHILS % (AUTO) 4.3 % (0-6); HEMATOCRIT 29.4 % (37.9-51.0); HEMOGLOBIN 10.2 g/dL (13.5-17.0); LYMPHOCYTES % (AUTO) 12.2 % (13-45); MEAN CORPUSCULAR HEMOGLOBIN 27.9 pg (27.0-33.4); MEAN CORPUSCULAR HGB CONC 34.7 g/dL (32.0-36.0); MEAN CORPUSCULAR VOLUME 80 fl (80-97); MONOCYTES % (AUTO) 7.8 % (3-13); PLATELET COUNT 210 10^3/uL (150-450); RED BLOOD COUNT 3.67 10^6/uL (4.35-5.55); RED CELL DISTRIBUTION WIDTH 17.1 % (11.5-14.0); SEGMENTED NEUTROPHILS % (AUTO) 75.3 % (42-78); TOTAL CELLS COUNTED % (AUTO) 100 %; WHITE BLOOD COUNT 8.9 10^3/uL (4.0-10.5)
[2019-10-14 06:41] LABS: ANION GAP 10 (5-19); BLOOD UREA NITROGEN 10 mg/dL (7-20); CALCIUM 8.3 mg/dL (8.4-10.2); CARBON DIOXIDE 29 mmol/L (22-30); CHLORIDE 96 mmol/L (98-107); GLUCOSE 90 mg/dL (75-110); POTASSIUM 3.9 mmol/L (3.6-5.0)
--- NOTE | 2019-10-14 08:36 | PDOC PROGRESS REPORT ---
Subjective Progress Note for:: 10/14/19 Subjective:: Patient is doing much better today, per patient he was able to walk with physical therapy on his heel, awaiting home antibiotic IV referral, he tells me that the Medicaid has been approved, so hospitalist note mentioning ID consultation Reason For Visit: RESPIRATORY DISTRESS,PNEUMONIA,SEPSIS,LYMPHOMA Physical Exam Vital Signs: Temp Pulse Resp BP Pulse Ox 98.3 F 88 18 141/45 H 94 10/14/19 06:57 10/14/19 06:57 10/14/19 06:57 10/14/19 06:57 10/14/19 06:57 Intake & Output 10/13/19 10/14/19 10/15/19 06:59 06:59 06:59 Intake Total 500 500 Output Total 1510 Balance -1010 500 Weight 54.9 kg 50.6 kg General appearance: PRESENT: no acute distress, well-developed, well-nourished Head exam: PRESENT: atraumatic, normocephalic Eye exam: PRESENT: conjunctiva pink, EOMI, PERRLA. ABSENT: scleral icterus Ear exam: PRESENT: normal external ear exam Mouth exam: PRESENT: moist, tongue midline Neck exam: ABSENT: carotid bruit, JVD, lymphadenopathy, thyromegaly Respiratory exam: PRESENT: clear to auscultation ramila. ABSENT: rales, rhonchi, wheezes Cardiovascular exam: PRESENT: RRR. ABSENT: diastolic murmur, rubs, systolic murmur Pulses: PRESENT: normal dorsalis pedis pul Vascular exam: PRESENT: normal capillary refill GI/Abdominal exam: PRESENT: normal bowel sounds, soft. ABSENT: distended, guarding, mass, organolmegaly, rebound, tenderness Rectal exam: PRESENT: deferred Extremities exam: PRESENT: full ROM. ABSENT: calf tenderness, clubbing, pedal edema Neurological exam: PRESENT: alert, awake, oriented to person, oriented to place, oriented to time, oriented to situation, CN II-XII grossly intact. ABSENT: motor sensory deficit Psychiatric exam: PRESENT: appropriate affect, normal mood. ABSENT: homicidal ideation, suicidal ideation Skin exam: PRESENT: dry, intact, warm. ABSENT: cyanosis, rash Results Laboratory Results: 10/14/19 06:11 10/14/19 06:11 10/13/19 10/14/19 10/14/19 22:50 06:11 06:11 WBC 8.9 RBC 3.67 L Hgb 10.2 L Hct 29.4 L MCV 80 MCH 27.9 MCHC 34.7 RDW 17.1 H Plt Count 210 Seg Neutrophils % 75.3 Sodium 134.8 L Potassium 3.9 Chloride 96 L Carbon Dioxide 29 Anion Gap 10 BUN 10 Creatinine 0.79 0.83 Est GFR ( Amer) > 60 > 60 Glucose 90 Calcium 8.3 L Magnesium 1.7 10/06/19 10/06/19 10/07/19 20:00 20:00 10:19 Troponin I < 0.012 NT-Pro-B Natriuret Pep 4000 H [id number] H 10/11/19 05:40 Troponin I NT-Pro-B Natriuret Pep [id number] H Impressions: Chest/Abdomen CTA 10/06/19 21:18 IMPRESSION: Negative for pulmonary embolus, thoracic aortic aneurysm, or dissection. Extensive axillary and mediastinal adenopathy, also described previously. Small bilateral pleural effusions. Extensive patchy airspace opacities bilaterally predominantly having a groundglass appearance and likely reflecting pneumonia. Some of the opacities are somewhat nodular as well. While findings may reflect multifocal pneumonia, close follow-up following appropriate therapy is recommended. Metastatic disease is not excluded entirely. TECHNICAL DOCUMENTATION: Quality ID # 436: Final reports with documentation of one or more dose reduction techniques (e.g., Automated exposure control, adjustment of the mA and/or kV according to patient size, use of iterative reconstruction technique) copyright 2011 [employer]- All Rights Reserved Abdomen Ultrasound 10/07/19 00:00 IMPRESSION: 1. Limited visualization of the pancreas. 2. No abnormality of the liver, gallbladder and right kidney. 3. Right pleural effusion. Abdomen/Pelvis CT 10/07/19 00:00 IMPRESSION: No acute process is seen within the abdomen or pelvis. Extensive adenopathy is again seen at the bilateral inguinal, retroperitoneal, pelvic lymph nodes. Mild splenomegaly is also noted. Foot X-Ray 10/07/19 10:03 IMPRESSION: 1. Arthrodesis hardware that transfixes the 1st MTP joint. There is no periprosthetic fracture. 2. Dorsal soft tissue swelling. Interventional Vascular Procedure 10/08/19 00:00 IMPRESSION: SUCCESSFUL PLACEMENT OF A 5 FR DUAL LUMEN 36 CM PICC IN THE LEFT BASILIC VEIN. PICC Line Insertion 10/08/19 00:00 IMPRESSION: SUCCESSFUL PLACEMENT OF A 5 FR DUAL LUMEN 36 CM PICC IN THE LEFT BASILIC VEIN. Chest X-Ray 10/11/19 06:00 IMPRESSION: 1. Interval increase in bilateral pleural effusions with bibasilar opacities which may be related to pneumonia or pulmonary edema. Assessment & Plan - Diagnosis (1) Multifocal pneumonia Is this a current diagnosis for this admission?: Yes Plan: Await recommendations from ID but he probably will need some sort of IV antibiotic course at home, unsure of length of course needed. 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 (3) Leukocytosis Qualifiers: Leukocytosis type: bandemia Qualified Code(s): D72.825 - Bandemia Is this a current diagnosis for this admission?: Yes Plan: Improved with antibiotic therapy (4) Cellulitis and abscess of foot Is this a current diagnosis for this admission?: Yes Plan: ID consultation today, antibiotic protocol per ID and hospitalist team. (5) MRSA bacteremia Is this a current diagnosis for this admission?: Yes Plan: As above - Time Time Spent with patient: 35 or more minutes
[2019-10-14] MEDS: ALLOPURINOL 300 MG TABLET PO SCH (09:36)
[2019-10-14] MEDS: FUROSEMIDE 40 MG TABLET PO SCH (09:36)
[2019-10-14] MEDS: VANCOMYCIN HCL 1,000 MG in DEXTROSE 5%-WATER 250 ML IV SCH ×2 (09:37→21:04)
[2019-10-14] MEDS: NYSTATIN/DEXAMETH/DIPHEN SUSP 120 ML PO SCH ×4 (09:38→21:05)
[2019-10-14] MEDS: ENOXAPARIN SODIUM INJ 40 MG/0.4 ML DISP.SYRIN SUBCUT SCH (09:39)
[2019-10-14] MEDS: NORMAL SALINE 10 ML SDV (SCHEDULED) IV SCH ×2 (09:40→21:05)
[2019-10-14] MEDS: ATENOLOL 50 MG TABLET PO SCH (09:51)
--- NOTE | 2019-10-14 18:18 | PDOC PROGRESS REPORT ---
Subjective Progress Note for:: 10/14/19 Subjective:: Today patient states he feels well. Denies any shortness of breath or chest pain at this time. Denies fever chills. Reason For Visit: RESPIRATORY DISTRESS,PNEUMONIA,SEPSIS,LYMPHOMA Physical Exam Vital Signs: Temp Pulse Resp BP Pulse Ox 98.2 F 80 18 125/46 L 91 L 10/14/19 12:12 10/14/19 12:12 10/14/19 12:12 10/14/19 12:12 10/14/19 12:12 Intake & Output 10/13/19 10/14/19 10/15/19 06:59 06:59 06:59 Intake Total 500 500 366 Output Total 1510 Balance -1010 500 366 Weight 54.9 kg 50.6 kg General appearance: PRESENT: no acute distress, cooperative Respiratory exam: PRESENT: crackles Neurological exam: PRESENT: alert, awake, oriented to person, oriented to place, oriented to time Results Laboratory Results: 10/14/19 06:11 10/14/19 06:11 10/13/19 10/14/19 10/14/19 22:50 06:11 06:11 WBC 8.9 RBC 3.67 L Hgb 10.2 L Hct 29.4 L MCV 80 MCH 27.9 MCHC 34.7 RDW 17.1 H Plt Count 210 Seg Neutrophils % 75.3 Sodium 134.8 L Potassium 3.9 Chloride 96 L Carbon Dioxide 29 Anion Gap 10 BUN 10 Creatinine 0.79 0.83 Est GFR ( Amer) > 60 > 60 Glucose 90 Calcium 8.3 L Magnesium 1.7 10/06/19 10/06/19 10/07/19 20:00 20:00 10:19 Troponin I < 0.012 NT-Pro-B Natriuret Pep 4000 H [id number] H 10/11/19 05:40 Troponin I NT-Pro-B Natriuret Pep [id number] H Impressions: Chest/Abdomen CTA 10/06/19 21:18 IMPRESSION: Negative for pulmonary embolus, thoracic aortic aneurysm, or dissection. Extensive axillary and mediastinal adenopathy, also described previously. Small bilateral pleural effusions. Extensive patchy airspace opacities bilaterally predominantly having a groundglass appearance and likely reflecting pneumonia. Some of the opacities are somewhat nodular as well. While findings may reflect multifocal pneumonia, close follow-up following appropriate therapy is recommended. Metastatic disease is not excluded entirely. TECHNICAL DOCUMENTATION: Quality ID # 436: Final reports with documentation of one or more dose reduction techniques (e.g., Automated exposure control, adjustment of the mA and/or kV according to patient size, use of iterative reconstruction technique) copyright 2011 [employer]- All Rights Reserved Abdomen Ultrasound 10/07/19 00:00 IMPRESSION: 1. Limited visualization of the pancreas. 2. No abnormality of the liver, gallbladder and right kidney. 3. Right pleural effusion. Abdomen/Pelvis CT 10/07/19 00:00 IMPRESSION: No acute process is seen within the abdomen or pelvis. Extensive adenopathy is again seen at the bilateral inguinal, retroperitoneal, pelvic lymph nodes. Mild splenomegaly is also noted. Foot X-Ray 10/07/19 10:03 IMPRESSION: 1. Arthrodesis hardware that transfixes the 1st MTP joint. There is no periprosthetic fracture. 2. Dorsal soft tissue swelling. Interventional Vascular Procedure 10/08/19 00:00 IMPRESSION: SUCCESSFUL PLACEMENT OF A 5 FR DUAL LUMEN 36 CM PICC IN THE LEFT BASILIC VEIN. PICC Line Insertion 10/08/19 00:00 IMPRESSION: SUCCESSFUL PLACEMENT OF A 5 FR DUAL LUMEN 36 CM PICC IN THE LEFT BASILIC VEIN. Chest X-Ray 10/11/19 06:00 IMPRESSION: 1. Interval increase in bilateral pleural effusions with bibasilar opacities which may be related to pneumonia or pulmonary edema. 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 This will help with determination need to proceed with [facility] for further evaluation of MRSA bacteremia and to help guide lines of therapy. Ideally patient will likely require 2 to 4 weeks of IV antibiotics or p.o. linezolid. We will maintain on vancomycin at this time. For patient's pneumonia, I will add Levaquin for now pending ID evaluation. This is in addition to the vancomycin which patient has been receiving. Repeat blood cultures remain negative. Discharge planning to work on Medicaid. - Time Time Spent with patient: Less than 15 minutes
[2019-10-14] MEDS: LEVOFLOXACIN 750 MG TABLET PO SCH (21:06)
[2019-10-14] MEDS: HYDROCODONE/ACETAMINOPHEN 5-325 MG TABLET PO PRN (21:07)
[2019-10-15] MEDS: PANTOPRAZOLE SODIUM 40 MG TABLET.DR PO SCH (05:47)
[2019-10-15] MEDS: BENZOCAINE/MENTHOL SORE THROAT LOZENGE BUCCAL PRN (05:48)
[2019-10-15 06:25] LABS: ABSOLUTE BASOPHILS # (AUTO) 0.1 10^3/uL (0.0-0.2); ABSOLUTE EOSINOPHILS # (AUTO) 0.3 10^3/uL (0.0-0.6); ABSOLUTE NEUT (AUTO) 6.9 10^3/uL (1.7-8.2); BASOPHILS % (AUTO) 0.6 % (0-2); EOSINOPHILS % (AUTO) 3.7 % (0-6); HEMATOCRIT 28.7 % (37.9-51.0); HEMOGLOBIN 9.8 g/dL (13.5-17.0); LYMPHOCYTES % (AUTO) 10.7 % (13-45); MEAN CORPUSCULAR HEMOGLOBIN 27.4 pg (27.0-33.4); MEAN CORPUSCULAR HGB CONC 34.3 g/dL (32.0-36.0); MEAN CORPUSCULAR VOLUME 80 fl (80-97); MONOCYTES % (AUTO) 10.3 % (3-13); PLATELET COUNT 237 10^3/uL (150-450); RED BLOOD COUNT 3.58 10^6/uL (4.35-5.55); RED CELL DISTRIBUTION WIDTH 16.9 % (11.5-14.0); SEGMENTED NEUTROPHILS % (AUTO) 74.7 % (42-78); TOTAL CELLS COUNTED % (AUTO) 100 %; WHITE BLOOD COUNT 9.3 10^3/uL (4.0-10.5)
--- NOTE | 2019-10-15 08:01 | PDOC PROGRESS REPORT ---
Subjective Progress Note for:: 10/15/19 Subjective:: Did not see infectious disease consultation. Called pharmacy, asked them to consult infectious disease. Also noted discharge planning note that Medicaid application has not yet been fully processed. Reason For Visit: RESPIRATORY DISTRESS,PNEUMONIA,SEPSIS,LYMPHOMA Physical Exam Vital Signs: Temp Pulse Resp BP Pulse Ox 98.0 F 77 18 144/84 H 97 10/14/19 23:38 10/14/19 23:38 10/14/19 23:38 10/14/19 23:38 10/14/19 23:38 Intake & Output 10/14/19 10/15/19 10/16/19 06:59 06:59 06:59 Intake Total 500 866 Balance 500 866 Weight 50.6 kg 50 kg General appearance: PRESENT: no acute distress, well-developed, well-nourished Head exam: PRESENT: atraumatic, normocephalic Eye exam: PRESENT: conjunctiva pink, EOMI, PERRLA. ABSENT: scleral icterus Ear exam: PRESENT: normal external ear exam Mouth exam: PRESENT: moist, tongue midline Neck exam: ABSENT: carotid bruit, JVD, lymphadenopathy, thyromegaly Respiratory exam: PRESENT: clear to auscultation ramila. ABSENT: rales, rhonchi, wheezes Cardiovascular exam: PRESENT: RRR. ABSENT: diastolic murmur, rubs, systolic murmur Pulses: PRESENT: normal dorsalis pedis pul Vascular exam: PRESENT: normal capillary refill GI/Abdominal exam: PRESENT: normal bowel sounds, soft. ABSENT: distended, guarding, mass, organolmegaly, rebound, tenderness Rectal exam: PRESENT: deferred Extremities exam: PRESENT: full ROM. ABSENT: calf tenderness, clubbing, pedal edema Neurological exam: PRESENT: alert, awake, oriented to person, oriented to place, oriented to time, oriented to situation, CN II-XII grossly intact. ABSENT: motor sensory deficit Psychiatric exam: PRESENT: appropriate affect, normal mood. ABSENT: homicidal ideation, suicidal ideation Skin exam: PRESENT: dry, intact, warm. ABSENT: cyanosis, rash Results Laboratory Results: 10/15/19 05:55 10/14/19 06:11 10/15/19 05:55 WBC 9.3 RBC 3.58 L Hgb 9.8 L Hct 28.7 L MCV 80 MCH 27.4 MCHC 34.3 RDW 16.9 H Plt Count 237 Seg Neutrophils % 74.7 10/10/19 06:42 Blood Blood Culture - Final NO GROWTH IN 5 DAYS 10/10/19 06:12 Blood Blood Culture - Final NO GROWTH IN 5 DAYS 10/06/19 10/06/19 10/07/19 20:00 20:00 10:19 Troponin I < 0.012 NT-Pro-B Natriuret Pep 4000 H 07006 H 10/11/19 05:40 Troponin I NT-Pro-B Natriuret Pep 58387 H Impressions: Chest/Abdomen CTA 10/06/19 21:18 IMPRESSION: Negative for pulmonary embolus, thoracic aortic aneurysm, or dissection. Extensive axillary and mediastinal adenopathy, also described previously. Small bilateral pleural effusions. Extensive patchy airspace opacities bilaterally predominantly having a groundglass appearance and likely reflecting pneumonia. Some of the opacities are somewhat nodular as well. While findings may reflect multifocal pneumonia, close follow-up following appropriate therapy is recommended. Metastatic disease is not excluded entirely. TECHNICAL DOCUMENTATION: Quality ID # 436: Final reports with documentation of one or more dose reduction techniques (e.g., Automated exposure control, adjustment of the mA and/or kV according to patient size, use of iterative reconstruction technique) copyright 2011 [employer]- All Rights Reserved Abdomen Ultrasound 10/07/19 00:00 IMPRESSION: 1. Limited visualization of the pancreas. 2. No abnormality of the liver, gallbladder and right kidney. 3. Right pleural effusion. Abdomen/Pelvis CT 10/07/19 00:00 IMPRESSION: No acute process is seen within the abdomen or pelvis. Extensive adenopathy is again seen at the bilateral inguinal, retroperitoneal, pelvic lymph nodes. Mild splenomegaly is also noted. Foot X-Ray 10/07/19 10:03 IMPRESSION: 1. Arthrodesis hardware that transfixes the 1st MTP joint. There is no periprosthetic fracture. 2. Dorsal soft tissue swelling. Interventional Vascular Procedure 10/08/19 00:00 IMPRESSION: SUCCESSFUL PLACEMENT OF A 5 FR DUAL LUMEN 36 CM PICC IN THE LEFT BASILIC VEIN. PICC Line Insertion 10/08/19 00:00 IMPRESSION: SUCCESSFUL PLACEMENT OF A 5 FR DUAL LUMEN 36 CM PICC IN THE LEFT BASILIC VEIN. Chest X-Ray 10/11/19 06:00 IMPRESSION: 1. Interval increase in bilateral pleural effusions with bibasilar opacities which may be related to pneumonia or pulmonary edema. 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 Is this a current diagnosis for this admission?: Yes Plan: We will need to initiate therapy as soon as we possibly can, once we have ID recommendations we could see when we can start (3) Leukocytosis Qualifiers: Leukocytosis type: bandemia Qualified Code(s): D72.825 - Bandemia Is this a current diagnosis for this admission?: Yes Plan: Improved with antibiotics (4) Cellulitis and abscess of foot Is this a current diagnosis for this admission?: Yes Plan: Antibiotic plan as above (5) MRSA bacteremia Is this a current diagnosis for this admission?: Yes Plan: Antibiotic plan as above - Time Time Spent with patient: 35 or more minutes Disposition: Today spent 35 minutes in discussion and coordination of care - Inpatient Certification Based on my medical assessment, after consideration of the patient's comorbidities, presenting symptoms, or acuity I expect that the services needed warrant INPATIENT care.: Yes I certify that my determination is in accordance with my understanding of Medicare's requirements for reasonable and necessary INPATIENT services [42 CFR 412.3e].: Yes Medical Necessity: Need for IV Antibiotics, Risk of Complication if Not Cared For in Hospital
[2019-10-15] MEDS: NYSTATIN/DEXAMETH/DIPHEN SUSP 120 ML PO SCH ×4 (09:29→22:14)
[2019-10-15] MEDS: NORMAL SALINE 10 ML SDV (SCHEDULED) IV SCH ×2 (09:29→22:15)
[2019-10-15] MEDS: FUROSEMIDE 40 MG TABLET PO SCH (09:29)
[2019-10-15] MEDS: VANCOMYCIN HCL 1,000 MG in DEXTROSE 5%-WATER 250 ML IV SCH ×2 (09:29→22:14)
[2019-10-15] MEDS: ENOXAPARIN SODIUM INJ 40 MG/0.4 ML DISP.SYRIN SUBCUT SCH (09:29)
[2019-10-15] MEDS: ATENOLOL 50 MG TABLET PO SCH (09:30)
[2019-10-15] MEDS: ALLOPURINOL 300 MG TABLET PO SCH (09:30)
--- NOTE | 2019-10-15 11:53 | Progress Note ---
Provider Note Provider Note: [facility]ious [facility] Telephone advice Consultation Chart reviewed. Patient is a 54-year-old man who was recently diagnosed with Lymphoma, also a hyperactive adrenal ademona s/p adrenalectomy currently on steroids who was admitted earlier this month due to shortness of breath, cough and and chills. On admission he was found septic from MRSA bacteremia, multifocal pneumonia and left foot abscess. Patient was febrile, WBC 29k, hypotensive. He was transferred to the MICU although no vasopressors were required. He was evaluated by surgery and I&D was performed expressing purulent drainage. X ray of the left foot showed orthopedic HW but not in the area of the abscess. No bony erosions described. Patient's blood cultures on 10/05 and 10/07 were positive for MRSA. Blood culture from 10/09 remained negative. Respiratory cultures were also positive for MRSA. TTE was negative for vegetations. He had a repeat CXR on 10/10 that demonstrated increased opacities and pleural effusion, but clinically patient was doing better. Leukocytosis improved. He has been followed by oncology for lymphoma as well. He has been on vancomycin, ID consulted for recommendations. PMH: Lymphoma Adrenal insufficiency (post surgical) PSH: Adrenalectomy Allergies: No Known Allergies Allergy (Verified 09/24/19 20:04) Medications: Hydroxyzine Pamoate [Vistaril 25 mg Capsule] 25 mg PO Q8HP PRN 09/25/19 Atenolol [Tenormin] 12.5 mg PO DAILY 10/07/19 Hydrocodone/Acetaminophen [[place] 5-325 Tablet] 1 each PO Q6HP PRN 10/07/19 Vitals: Temp Pulse Resp BP Pulse Ox 98.0 F 77 18 144/84 H 97 10/14/19 23:38 10/14/19 23:38 10/14/19 23:38 10/14/19 23:38 10/14/19 23:38 Intake & Output 10/14/19 10/15/19 10/16/19 06:59 06:59 06:59 Intake Total 500 866 250 Balance 500 866 250 Weight 50.6 kg 50 kg Weight/Height Weight 50 kg Height 5 ft Laboratories 10/15/19 05:55 10/14/19 06:11 MCV 80 fl (80-97) 10/15/19 05:55 MCH 27.4 pg (27.0-33.4) 10/15/19 05:55 MCHC 34.3 g/dL (32.0-36.0) 10/15/19 05:55 RDW 16.9 % (11.5-14.0) H 10/15/19 05:55 Seg Neutrophils % 74.7 % (42-78) 10/15/19 05:55 Carbonic Acid 1.18 mmol/L (1.05-1.35) 10/07/19 01:45 HCO3/H2CO3 Ratio 20:1 10/07/19 01:45 ABG pH 7.40 (7.35-7.45) 10/07/19 01:45 ABG pCO2 39.3 mmHg (35-45) 10/07/19 01:45 ABG pO2 64.9 mmHg (80-100) L 10/07/19 01:45 ABG HCO3 23.9 mmol/L (20-24) 10/07/19 01:45 ABG O2 Saturation 92.8 % (94-98) L 10/07/19 01:45 ABG Base Excess -0.7 mmol/L 10/07/19 01:45 FiO2 4L 10/07/19 01:45 Chloride 96 mmol/L (98-107) L 10/14/19 06:11 Carbon Dioxide 29 mmol/L (22-30) 10/14/19 06:11 Anion Gap 10 (5-19) 10/14/19 06:11 Est GFR ( Amer) > 60 (>60) 10/14/19 06:11 Glucose 90 mg/dL (75-110) 10/14/19 06:11 Lactic Acid 2.1 mmol/L (0.7-2.1) 10/08/19 01:38 Calcium 8.3 mg/dL (8.4-10.2) L 10/14/19 06:11 Ionized Calcium Tanner 1.12 mmol/L (1.14-1.30) L 10/09/19 04:45 Phosphorus 3.9 mg/dL (2.5-4.5) D 10/09/19 04:45 Magnesium 1.7 mg/dL (1.6-2.3) 10/14/19 06:11 Total Bilirubin 0.4 mg/dL (0.2-1.3) 10/09/19 04:45 AST 23 U/L (17-59) 10/09/19 04:45 Alkaline Phosphatase 74 U/L (38-126) 10/09/19 04:45 C-Reactive Protein 260.4 mg/L (<10.0) H 10/07/19 10:19 Total Protein 5.4 g/dL (6.3-8.2) L 10/09/19 04:45 Albumin 2.6 g/dL (3.5-5.0) L 10/09/19 04:45 Lipase 26.4 U/L (23-300) 10/07/19 04:16 Urine Color YELLOW 10/07/19 07:35 Urine Appearance CLEAR 10/07/19 07:35 Urine pH 6.0 (5.0-9.0) 10/07/19 07:35 Ur Specific Roe 1.039 10/07/19 23:20 Urine Protein 30 mg/dL (NEGATIVE) H 10/07/19 07:35 Urine Glucose (UA) NEGATIVE mg/dL (NEGATIVE) 10/07/19 07:35 Urine Ketones NEGATIVE mg/dL (NEGATIVE) 10/07/19 07:35 Urine Blood NEGATIVE (NEGATIVE) 10/07/19 07:35 Urine Nitrite NEGATIVE (NEGATIVE) 10/07/19 07:35 Ur Leukocyte Esterase NEGATIVE (NEGATIVE) 10/07/19 07:35 Urine WBC (Auto) 0 /HPF 10/07/19 07:35 Urine RBC (Auto) 1 /HPF 10/07/19 07:35 Urine Osmolality 380 mOsm/kg (300-900) 10/07/19 23:20 10/10/19 06:42 Blood Blood Culture - Final NO GROWTH IN 5 DAYS 10/10/19 06:12 Blood Blood Culture - Final NO GROWTH IN 5 DAYS 10/06/19 10/06/19 10/07/19 20:00 20:00 10:19 Troponin I < 0.012 NT-Pro-B Natriuret Pep 4000 H 66046 H 10/11/19 05:40 Troponin I NT-Pro-B Natriuret Pep 18141 H Microbiology Blood cultures: 3/3 MRSA 3/5 MRSA 3/7 NGTD Sputum Culture 3/6 MRSA Radiology: Chest/Abdomen CTA 10/06/19 21:18 IMPRESSION: Negative for pulmonary embolus, thoracic aortic aneurysm, or dissection. Extensive axillary and mediastinal adenopathy, also described previously. Small bilateral pleural effusions. Extensive patchy airspace opacities bilaterally predominantly having a groundglass appearance and likely reflecting pneumonia. Some of the opacities are somewhat nodular as well. While findings may reflect multifocal pneumonia, close follow-up following appropriate therapy is recommended. Metastatic disease is not excluded entirely. TECHNICAL DOCUMENTATION: Quality ID # 436: Final reports with documentation of one or more dose reduction techniques (e.g., Automated exposure control, adjustment of the mA and/or kV according to patient size, use of iterative reconstruction technique) copyright 2011 [employer]- All Rights Reserved Abdomen Ultrasound 10/07/19 00:00 IMPRESSION: 1. Limited visualization of the pancreas. 2. No abnormality of the liver, gallbladder and right kidney. 3. Right pleural effusion. Abdomen/Pelvis CT 10/07/19 00:00 IMPRESSION: No acute process is seen within the abdomen or pelvis. Extensive adenopathy is again seen at the bilateral inguinal, retroperitoneal, pelvic lymph nodes. Mild splenomegaly is also noted. Foot X-Ray 10/07/19 10:03 IMPRESSION: 1. Arthrodesis hardware that transfixes the 1st MTP joint. There is no periprosthetic fracture. 2. Dorsal soft tissue swelling. Interventional Vascular Procedure 10/08/19 00:00 IMPRESSION: SUCCESSFUL PLACEMENT OF A 5 FR DUAL LUMEN 36 CM PICC IN THE LEFT BASILIC VEIN. PICC Line Insertion 10/08/19 00:00 IMPRESSION: SUCCESSFUL PLACEMENT OF A 5 FR DUAL LUMEN 36 CM PICC IN THE LEFT BASILIC VEIN. Chest X-Ray 10/11/19 06:00 IMPRESSION: 1. Interval increase in bilateral pleural effusions with bibasilar opacities which may be related to pneumonia or pulmonary edema. Assessment and Recommendations: Patient with MRSA bacteremia from left foot abscess and multifocal pneumonia in the setting of immunosuppression due to lymphoma. Patient has cleared the bacteremia on 10/09. TTE was negative for vegetations. No stigmata of endocarditis per notes. He had source control in the left foot. Not clear if resolution of pleural effusions but radiographic findings of pneumonia might take a while to reflex changes, he is clinically better per notes. He did have a PICC line placed while he was bacteremic, this will have to be exchanged. Will recommend to continue vancomycin (trough 15-20). This patient is immunocompromissed and came bacteremic from the community, therefore not clear for how long he was bacteremic prior to presentation. He will need vancomycin for [address] a new PICC line, continue vancomycin until 11/07/2019, monitor vanc trough (15-20), CMP, CRP weekly. Please call back if any questions. Jaja Way MD [facility] [id number]
--- NOTE | 2019-10-15 15:33 | PDOC PROGRESS REPORT ---
Subjective Progress Note for:: 10/15/19 Subjective:: Patient's has no complaints at this time. Feels that his breathing is at base. Reason For Visit: RESPIRATORY DISTRESS,PNEUMONIA,SEPSIS,LYMPHOMA Physical Exam Vital Signs: Temp Pulse Resp BP Pulse Ox 98.0 F 77 18 144/84 H 97 10/14/19 23:38 10/14/19 23:38 10/14/19 23:38 10/14/19 23:38 10/14/19 23:38 Intake & Output 10/14/19 10/15/19 10/16/19 06:59 06:59 06:59 Intake Total 500 866 250 Balance 500 866 250 Weight 50.6 kg 50 kg General appearance: PRESENT: no acute distress, cooperative Respiratory exam: PRESENT: crackles, unlabored. ABSENT: tachypnea, wheezes Cardiovascular exam: PRESENT: RRR, +S1, +S2. ABSENT: tachycardia GI/Abdominal exam: PRESENT: normal bowel sounds, soft. ABSENT: rebound, rigid, tenderness Neurological exam: PRESENT: alert, awake, oriented to person, oriented to place, oriented to time Results Laboratory Results: 10/15/19 05:55 10/14/19 06:11 10/15/19 05:55 WBC 9.3 RBC 3.58 L Hgb 9.8 L Hct 28.7 L MCV 80 MCH 27.4 MCHC 34.3 RDW 16.9 H Plt Count 237 Seg Neutrophils % 74.7 10/10/19 06:42 Blood Blood Culture - Final NO GROWTH IN 5 DAYS 10/10/19 06:12 Blood Blood Culture - Final NO GROWTH IN 5 DAYS 10/06/19 10/06/19 10/07/19 20:00 20:00 10:19 Troponin I < 0.012 NT-Pro-B Natriuret Pep 4000 H 57070 H 10/11/19 05:40 Troponin I NT-Pro-B Natriuret Pep 52120 H Impressions: Chest/Abdomen CTA 10/06/19 21:18 IMPRESSION: Negative for pulmonary embolus, thoracic aortic aneurysm, or dissection. Extensive axillary and mediastinal adenopathy, also described previously. Small bilateral pleural effusions. Extensive patchy airspace opacities bilaterally predominantly having a groundglass appearance and likely reflecting pneumonia. Some of the opacities are somewhat nodular as well. While findings may reflect multifocal pneumonia, close follow-up following appropriate therapy is recommended. Metastatic disease is not excluded entirely. TECHNICAL DOCUMENTATION: Quality ID # 436: Final reports with documentation of one or more dose reduction techniques (e.g., Automated exposure control, adjustment of the mA and/or kV according to patient size, use of iterative reconstruction technique) copyright 2011 [employer]- All Rights Reserved Abdomen Ultrasound 10/07/19 00:00 IMPRESSION: 1. Limited visualization of the pancreas. 2. No abnormality of the liver, gallbladder and right kidney. 3. Right pleural effusion. Abdomen/Pelvis CT 10/07/19 00:00 IMPRESSION: No acute process is seen within the abdomen or pelvis. Extensive adenopathy is again seen at the bilateral inguinal, retroperitoneal, pelvic lymph nodes. Mild splenomegaly is also noted. Foot X-Ray 10/07/19 10:03 IMPRESSION: 1. Arthrodesis hardware that transfixes the 1st MTP joint. There is no periprosthetic fracture. 2. Dorsal soft tissue swelling. Interventional Vascular Procedure 10/08/19 00:00 IMPRESSION: SUCCESSFUL PLACEMENT OF A 5 FR DUAL LUMEN 36 CM PICC IN THE LEFT BASILIC VEIN. PICC Line Insertion 10/08/19 00:00 IMPRESSION: SUCCESSFUL PLACEMENT OF A 5 FR DUAL LUMEN 36 CM PICC IN THE LEFT BASILIC VEIN. Chest X-Ray 10/11/19 06:00 IMPRESSION: 1. Interval increase in bilateral pleural effusions with bibasilar opacities which may be related to pneumonia or pulmonary edema. 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 This will help with determination need to proceed with [facility] for further evaluation of MRSA bacteremia and to help guide lines of therapy. Ideally patient will likely require 2 to 4 weeks of IV antibiotics or p.o. linezolid. We will maintain on vancomycin at this time. For patient's pneumonia, I will add Levaquin for now pending ID evaluation. This is in addition to the vancomycin which patient has been rece iving. Repeat blood cultures remain negative. Discharge planning to work on Medicaid. 10/15/2019 Continue IV vancomycin. Continue Levaquin. Infectious disease consulted recommending IV vancomycin for 4 weeks for treatment of complicated MRSA bacteremia. As such, end date will be 11/07/2019 from first negative blood culture. ID also recommended exchange of PICC line because PICC line placed on 10/08/2019 was done when still bacteremic. We will work on getting this done tomorrow. I will also work on checking patient's coverage for linezolid, with the help of the senior buyer planner, as this would be an adequate oral option. Vancomycin trough was subtherapeutic and some adequate vancomycin trough 15-20 was required. Will discuss dose adjustments with pharmacist. Oncology following regarding patient's T-cell lymphoma and anticipating starting chemo based on determination of duration of antibiotics. - Time Time Spent with patient: Less than 15 minutes
[2019-10-15] MEDS: ACETAMINOPHEN 325 MG TABLET PO PRN (16:13)
[2019-10-15] MEDS: LEVOFLOXACIN 750 MG TABLET PO SCH (17:37)
[2019-10-15] MEDS: HYDROCODONE/ACETAMINOPHEN 5-325 MG TABLET PO PRN (22:16)
[2019-10-16] MEDS: PANTOPRAZOLE SODIUM 40 MG TABLET.DR PO SCH (05:41)
[2019-10-16] MEDS ORDERED: ACETAMINOPHEN 325 MG TABLET PO PRN (07:55)
--- NOTE | 2019-10-16 07:58 | PDOC PROGRESS REPORT ---
Subjective Progress Note for:: 10/16/19 Subjective:: Patient is doing okay, infectious disease recommends vancomycin for 4 weeks total, after 2 weeks they note that chemotherapy may be possible. Medicaid is still pending. Reason For Visit: RESPIRATORY DISTRESS,PNEUMONIA,SEPSIS,LYMPHOMA Physical Exam Vital Signs: Temp Pulse Resp BP Pulse Ox 97.9 F 87 19 108/53 L 89 L 10/15/19 17:33 10/15/19 15:52 10/15/19 15:52 10/15/19 15:52 10/15/19 15:52 Intake & Output 10/15/19 10/16/19 10/17/19 06:59 06:59 06:59 Intake Total 866 860 Balance 866 860 Weight 50 kg 48.3 kg General appearance: PRESENT: no acute distress, well-developed, well-nourished Head exam: PRESENT: atraumatic, normocephalic Eye exam: PRESENT: conjunctiva pink, EOMI, PERRLA. ABSENT: scleral icterus Ear exam: PRESENT: normal external ear exam Mouth exam: PRESENT: moist, tongue midline Neck exam: ABSENT: carotid bruit, JVD, lymphadenopathy, thyromegaly Respiratory exam: PRESENT: clear to auscultation ramila. ABSENT: rales, rhonchi, wheezes Cardiovascular exam: PRESENT: RRR. ABSENT: diastolic murmur, rubs, systolic murmur Pulses: PRESENT: normal dorsalis pedis pul Vascular exam: PRESENT: normal capillary refill GI/Abdominal exam: PRESENT: normal bowel sounds, soft. ABSENT: distended, guarding, mass, organolmegaly, rebound, tenderness Rectal exam: PRESENT: deferred Extremities exam: PRESENT: full ROM. ABSENT: calf tenderness, clubbing, pedal edema Neurological exam: PRESENT: alert, awake, oriented to person, oriented to place, oriented to time, oriented to situation, CN II-XII grossly intact. ABSENT: motor sensory deficit Psychiatric exam: PRESENT: appropriate affect, normal mood. ABSENT: homicidal ideation, suicidal ideation Skin exam: PRESENT: dry, intact, warm. ABSENT: cyanosis, rash Results Laboratory Results: 10/15/19 05:55 10/14/19 06:11 10/10/19 06:42 Blood Blood Culture - Final NO GROWTH IN 5 DAYS 10/10/19 06:12 Blood Blood Culture - Final NO GROWTH IN 5 DAYS 10/06/19 10/06/19 10/07/19 20:00 20:00 10:19 Troponin I < 0.012 NT-Pro-B Natriuret Pep 4000 H 56526 H 10/11/19 05:40 Troponin I NT-Pro-B Natriuret Pep 42111 H Impressions: Chest/Abdomen CTA 10/06/19 21:18 IMPRESSION: Negative for pulmonary embolus, thoracic aortic aneurysm, or dissection. Extensive axillary and mediastinal adenopathy, also described previously. Small bilateral pleural effusions. Extensive patchy airspace opacities bilaterally predominantly having a groundglass appearance and likely reflecting pneumonia. Some of the opacities are somewhat nodular as well. While findings may reflect multifocal pneumonia, close follow-up following appropriate therapy is recommended. Metastatic disease is not excluded entirely. TECHNICAL DOCUMENTATION: Quality ID # 436: Final reports with documentation of one or more dose reduction techniques (e.g., Automated exposure control, adjustment of the mA and/or kV according to patient size, use of iterative reconstruction technique) copyright 2011 [employer]- All Rights Reserved Abdomen Ultrasound 10/07/19 00:00 IMPRESSION: 1. Limited visualization of the pancreas. 2. No abnormality of the liver, gallbladder and right kidney. 3. Right pleural effusion. Abdomen/Pelvis CT 10/07/19 00:00 IMPRESSION: No acute process is seen within the abdomen or pelvis. Extensive adenopathy is again seen at the bilateral inguinal, retroperitoneal, pelvic lymph nodes. Mild splenomegaly is also noted. Foot X-Ray 10/07/19 10:03 IMPRESSION: 1. Arthrodesis hardware that transfixes the 1st MTP joint. There is no periprosthetic fracture. 2. Dorsal soft tissue swelling. Interventional Vascular Procedure 10/08/19 00:00 IMPRESSION: SUCCESSFUL PLACEMENT OF A 5 FR DUAL LUMEN 36 CM PICC IN THE LEFT BASILIC VEIN. PICC Line Insertion 10/08/19 00:00 IMPRESSION: SUCCESSFUL PLACEMENT OF A 5 FR DUAL LUMEN 36 CM PICC IN THE LEFT BASILIC VEIN. Chest X-Ray 10/11/19 06:00 IMPRESSION: 1. Interval increase in bilateral pleural effusions with bibasilar opacities which may be related to pneumonia or pulmonary edema. 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
[2019-10-16] MEDS: VANCOMYCIN HCL 1,000 MG in DEXTROSE 5%-WATER 250 ML IV SCH ×2 (09:06→21:22)
[2019-10-16] MEDS: NYSTATIN/DEXAMETH/DIPHEN SUSP 120 ML PO SCH ×4 (09:06→21:23)
[2019-10-16] MEDS: ATENOLOL 50 MG TABLET PO SCH (09:07)
[2019-10-16] MEDS: FUROSEMIDE 40 MG TABLET PO SCH (09:07)
[2019-10-16] MEDS: NORMAL SALINE 10 ML SDV (SCHEDULED) IV SCH ×2 (09:07→21:26)
[2019-10-16] MEDS: ENOXAPARIN SODIUM INJ 40 MG/0.4 ML DISP.SYRIN SUBCUT SCH (09:08)
[2019-10-16] MEDS: ALLOPURINOL 300 MG TABLET PO SCH (09:08)
--- NOTE | 2019-10-16 13:27 | PDOC PROGRESS REPORT ---
Subjective Progress Note for:: 10/16/19 Subjective:: Patient feels well today. Still concerned about his Medicaid kicking in. Denies any shortness of breath at this time. Denies any abdominal pain nausea vomiting. Reason For Visit: RESPIRATORY DISTRESS,PNEUMONIA,SEPSIS,LYMPHOMA Physical Exam Vital Signs: Temp Pulse Resp BP Pulse Ox 97.9 F 85 17 104/50 L 94 10/16/19 07:51 10/16/19 07:51 10/16/19 07:51 10/16/19 07:51 10/16/19 08:00 Intake & Output 10/15/19 10/16/19 10/17/19 06:59 06:59 06:59 Intake Total 866 860 250 Balance 866 860 250 Weight 50 kg 48.3 kg General appearance: PRESENT: no acute distress, cooperative Neck exam: ABSENT: JVD Respiratory exam: PRESENT: crackles, unlabored. ABSENT: tachypnea, wheezes Cardiovascular exam: PRESENT: RRR, +S1, +S2. ABSENT: tachycardia GI/Abdominal exam: PRESENT: normal bowel sounds, soft. ABSENT: rebound, rigid, tenderness Neurological exam: PRESENT: alert, awake, oriented to person, oriented to place, oriented to time, oriented to situation Results Laboratory Results: 10/15/19 05:55 10/14/19 06:11 10/06/19 10/06/19 10/07/19 20:00 20:00 10:19 Troponin I < 0.012 NT-Pro-B Natriuret Pep 4000 H 60194 H 10/11/19 05:40 Troponin I NT-Pro-B Natriuret Pep 60726 H Impressions: Chest/Abdomen CTA 10/06/19 21:18 IMPRESSION: Negative for pulmonary embolus, thoracic aortic aneurysm, or dissection. Extensive axillary and mediastinal adenopathy, also described previously. Small bilateral pleural effusions. Extensive patchy airspace opacities bilaterally predominantly having a groundglass appearance and likely reflecting pneumonia. Some of the opacities are somewhat nodular as well. While findings may reflect multifocal pneumonia, close follow-up following appropriate therapy is recommended. Metastatic disease is not excluded entirely. TECHNICAL DOCUMENTATION: Quality ID # 436: Final reports with documentation of one or more dose reduction techniques (e.g., Automated exposure control, adjustment of the mA and/or kV according to patient size, use of iterative reconstruction technique) copyright 2011 [employer]- All Rights Reserved Abdomen Ultrasound 10/07/19 00:00 IMPRESSION: 1. Limited visualization of the pancreas. 2. No abnormality of the liver, gallbladder and right kidney. 3. Right pleural effusion. Abdomen/Pelvis CT 10/07/19 00:00 IMPRESSION: No acute process is seen within the abdomen or pelvis. Extensive adenopathy is again seen at the bilateral inguinal, retroperitoneal, pelvic lymph nodes. Mild splenomegaly is also noted. Foot X-Ray 10/07/19 10:03 IMPRESSION: 1. Arthrodesis hardware that transfixes the 1st MTP joint. There is no periprosthetic fracture. 2. Dorsal soft tissue swelling. Interventional Vascular Procedure 10/08/19 00:00 IMPRESSION: SUCCESSFUL PLACEMENT OF A 5 FR DUAL LUMEN 36 CM PICC IN THE LEFT BASILIC VEIN. PICC Line Insertion 10/08/19 00:00 IMPRESSION: SUCCESSFUL PLACEMENT OF A 5 FR DUAL LUMEN 36 CM PICC IN THE LEFT BASILIC VEIN. Chest X-Ray 10/11/19 06:00 IMPRESSION: 1. Interval increase in bilateral pleural effusions with bibasilar opacities which may be related to pneumonia or pulmonary edema. 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 This will help with determination need to proceed with LIZ for further evaluation of MRSA bacteremia and to help guide lines of therapy. Ideally patient will likely require 2 to 4 weeks of IV antibiotics or p.o. linezolid. We will maintain on vancomycin at this time. For patient's pneumonia, I will add Levaquin for now pending ID evaluation. This is in addition to the vancomycin which patient has been receiving. Repeat blood cultures remain negative. Discharge planning to work on Medicaid. 10/15/2019 Continue IV vancomycin. Continue Levaquin. Infectious disease consulted recommending IV vancomycin for 4 weeks for treatment of complicated MRSA bacteremia. As such, end date will be 11/07/2019 from first negative blood culture. ID also recommended exchange of PICC line because PICC line placed on 10/08/2019 was done when still bacteremic. We will work on getting this done tomorrow. I will also work on checking patient's coverage for linezolid, with the help of the automatic data processing planner, as this would be an adequate oral option. Va ncomycin trough was subtherapeutic and some adequate vancomycin trough 15-20 was required. Will discuss dose adjustments with pharmacist. Oncology following regarding patient's T-cell lymphoma and anticipating starting chemo based on determination of duration of antibiotics. 10/16/2019 I have personally discussed with infectious disease provider who recommends using vancomycin instead of linezolid for treatment of patient's complicated MRSA bacteremia given patient's immunocompromised nature from his lymphoma and the fact that he is going to be on chemo. Patient spiked a one-time fever yest erday. I have discontinued Tylenol in order to monitor fever chart. Patient's PICC line will be removed today and his vancomycin will continue to be administered through peripheral IV. Repeat blood cultures will be obtained today and if blood cultures remain negative after 48 hours, PICC line will then be placed on Saturday to complete duration of antibiotics. End date of antibiotics is 11/07/2019 with weekly CMP and CRP as well as Vanco trough monitoring. Continue Levaquin for 4 more days for treatment of pneumonia. - Time Time Spent with patient: 15-24 minutes
[2019-10-16] MEDS: HYDROCODONE/ACETAMINOPHEN 5-325 MG TABLET PO PRN (17:19)
[2019-10-16] MEDS: LEVOFLOXACIN 750 MG TABLET PO SCH (17:19)
[2019-10-17] MEDS: PANTOPRAZOLE SODIUM 40 MG TABLET.DR PO SCH (06:23)
[2019-10-17] MEDS ORDERED: NORMAL SALINE 1000 ML 1,000 ML IV PRN (08:09)
[2019-10-17] MEDS ORDERED: NORMAL SALINE 1000 ML 1,000 ML IV ONE (08:30)
[2019-10-17] MEDS: NORMAL SALINE 10 ML SDV (SCHEDULED) IV SCH ×2 (09:45→21:28)
[2019-10-17] MEDS: ATENOLOL 50 MG TABLET PO SCH (10:05)
[2019-10-17] MEDS: ENOXAPARIN SODIUM INJ 40 MG/0.4 ML DISP.SYRIN SUBCUT SCH (10:06)
[2019-10-17] MEDS: HYDROCODONE/ACETAMINOPHEN 5-325 MG TABLET PO PRN ×2 (10:07→17:08)
[2019-10-17] MEDS: VANCOMYCIN HCL 1,000 MG in DEXTROSE 5%-WATER 250 ML IV SCH ×2 (10:08→21:19)
[2019-10-17] MEDS: NYSTATIN/DEXAMETH/DIPHEN SUSP 120 ML PO SCH ×4 (10:08→21:19)
[2019-10-17] MEDS: ALLOPURINOL 300 MG TABLET PO SCH (10:08)
--- NOTE | 2019-10-17 11:52 | PDOC PROGRESS REPORT ---
Subjective Progress Note for:: 10/17/19 Subjective:: No acute events overnight, patient would like dressing changed Reason For Visit: RESPIRATORY DISTRESS,PNEUMONIA,SEPSIS,LYMPHOMA Physical Exam Vital Signs: Temp Pulse Resp BP Pulse Ox 98.1 F 87 16 96/52 L 93 10/17/19 10:53 10/17/19 10:53 10/17/19 10:53 10/17/19 10:53 10/17/19 10:53 Intake & Output 10/16/19 10/17/19 10/18/19 06:59 06:59 06:59 Intake Total 860 1900 Balance 860 1900 Weight 48.3 kg 51.1 kg General appearance: PRESENT: no acute distress, well-developed, well-nourished Head exam: PRESENT: atraumatic, normocephalic Eye exam: PRESENT: conjunctiva pink, EOMI, PERRLA. ABSENT: scleral icterus Ear exam: PRESENT: normal external ear exam Mouth exam: PRESENT: moist, tongue midline Neck exam: ABSENT: carotid bruit, JVD, lymphadenopathy, thyromegaly Respiratory exam: PRESENT: clear to auscultation ramila. ABSENT: rales, rhonchi, wheezes Cardiovascular exam: PRESENT: RRR. ABSENT: diastolic murmur, rubs, systolic murmur Pulses: PRESENT: normal dorsalis pedis pul Vascular exam: PRESENT: normal capillary refill GI/Abdominal exam: PRESENT: normal bowel sounds, soft. ABSENT: distended, guarding, mass, organolmegaly, rebound, tenderness Rectal exam: PRESENT: deferred Extremities exam: PRESENT: full ROM. ABSENT: calf tenderness, clubbing, pedal edema Neurological exam: PRESENT: alert, awake, oriented to person, oriented to place, oriented to time, oriented to situation, CN II-XII grossly intact. ABSENT: motor sensory deficit Psychiatric exam: PRESENT: appropriate affect, normal mood. ABSENT: homicidal ideation, suicidal ideation Skin exam: PRESENT: dry, intact, warm. ABSENT: cyanosis, rash Results Laboratory Results: 10/15/19 05:55 10/14/19 06:11 10/06/19 10/06/19 10/07/19 20:00 20:00 10:19 Troponin I < 0.012 NT-Pro-B Natriuret Pep 4000 H 16806 H 10/11/19 05:40 Troponin I NT-Pro-B Natriuret Pep 23888 H Impressions: Chest/Abdomen CTA 10/06/19 21:18 IMPRESSION: Negative for pulmonary embolus, thoracic aortic aneurysm, or dissection. Extensive axillary and mediastinal adenopathy, also described previously. Small bilateral pleural effusions. Extensive patchy airspace opacities bilaterally predominantly having a groundglass appearance and likely reflecting pneumonia. Some of the opacities are somewhat nodular as well. While findings may reflect multifocal pneumonia, close follow-up following appropriate therapy is recommended. Metastatic disease is not excluded entirely. TECHNICAL DOCUMENTATION: Quality ID # 436: Final reports with documentation of one or more dose reduction techniques (e.g., Automated exposure control, adjustment of the mA and/or kV according to patient size, use of iterative reconstruction technique) copyright 2011 [employer]- All Rights Reserved Abdomen Ultrasound 10/07/19 00:00 IMPRESSION: 1. Limited visualization of the pancreas. 2. No abnormality of the liver, gallbladder and right kidney. 3. Right pleural effusion. Abdomen/Pelvis CT 10/07/19 00:00 IMPRESSION: No acute process is seen within the abdomen or pelvis. Extensive adenopathy is again seen at the bilateral inguinal, retroperitoneal, pelvic lymph nodes. Mild splenomegaly is also noted. Foot X-Ray 10/07/19 10:03 IMPRESSION: 1. Arthrodesis hardware that transfixes the 1st MTP joint. There is no periprosthetic fracture. 2. Dorsal soft tissue swelling. Interventional Vascular Procedure 10/08/19 00:00 IMPRESSION: SUCCESSFUL PLACEMENT OF A 5 FR DUAL LUMEN 36 CM PICC IN THE LEFT BASILIC VEIN. PICC Line Insertion 10/08/19 00:00 IMPRESSION: SUCCESSFUL PLACEMENT OF A 5 FR DUAL LUMEN 36 CM PICC IN THE LEFT BASILIC VEIN. Chest X-Ray 10/11/19 06:00 IMPRESSION: 1. Interval increase in bilateral pleural effusions with bibasilar opacities which may be related to pneumonia or pulmonary edema. 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 Is this a current diagnosis for this admission?: Yes Plan: Plan for chemotherapy hopefully in 2 weeks or so (3) Leukocytosis Qualifiers: Leukocytosis type: bandemia Qualified Code(s): D72.825 - Bandemia Is this a current diagnosis for this admission?: Yes Plan: Improved (4) Cellulitis and abscess of foot Is this a current diagnosis for this admission?: Yes Plan: Continue antibiotic (5) MRSA bacteremia Is this a current diagnosis for this admission?: Yes Plan: Continue antibiotic - Time Time Spent with patient: 35 or more minutes - Inpatient Certification Based on my medical assessment, after consideration of the patient's comorbidities, presenting symptoms, or acuity I expect that the services needed warrant INPATIENT care.: Yes I certify that my determination is in accordance with my understanding of Medicare's requirements for reasonable and necessary INPATIENT services [42 CFR 412.3e].: Yes Medical Necessity: Need for IV Antibiotics
--- NOTE | 2019-10-17 11:58 | PDOC PROGRESS REPORT ---
Subjective Progress Note for:: 10/17/19 Subjective:: Patient denies any shortness of breath at this time. Comfortable in bed. Denies any chest pain abdominal pain. Denies any fever this time. Reason For Visit: RESPIRATORY DISTRESS,PNEUMONIA,SEPSIS,LYMPHOMA Physical Exam Vital Signs: Temp Pulse Resp BP Pulse Ox 98.1 F 87 16 96/52 L 93 10/17/19 10:53 10/17/19 10:53 10/17/19 10:53 10/17/19 10:53 10/17/19 10:53 Intake & Output 10/16/19 10/17/19 10/18/19 06:59 06:59 06:59 Intake Total 860 1900 Balance 860 1900 Weight 48.3 kg 51.1 kg General appearance: PRESENT: no acute distress, cooperative Neck exam: ABSENT: JVD Respiratory exam: PRESENT: crackles - Right lung, symmetrical, unlabored. ABSENT: tachypnea, wheezes Cardiovascular exam: PRESENT: RRR, +S1, +S2. ABSENT: tachycardia GI/Abdominal exam: PRESENT: normal bowel sounds, soft. ABSENT: rebound, rigid, tenderness Extremities exam: PRESENT: other - Left heel wound Neurological exam: PRESENT: alert, awake, oriented to person, oriented to place, oriented to time Psychiatric exam: ABSENT: agitated, anxious Results Laboratory Results: 10/15/19 05:55 10/14/19 06:11 10/06/19 10/06/19 10/07/19 20:00 20:00 10:19 Troponin I < 0.012 NT-Pro-B Natriuret Pep 4000 H 24867 H 10/11/19 05:40 Troponin I NT-Pro-B Natriuret Pep 65531 H Impressions: Chest/Abdomen CTA 10/06/19 21:18 IMPRESSION: Negative for pulmonary embolus, thoracic aortic aneurysm, or dissection. Extensive axillary and mediastinal adenopathy, also described previously. Small bilateral pleural effusions. Extensive patchy airspace opacities bilaterally predominantly having a groundglass appearance and likely reflecting pneumonia. Some of the opacities are somewhat nodular as well. While findings may reflect multifocal pneumonia, close follow-up following appropriate therapy is recommended. Metastatic disease is not excluded entirely. TECHNICAL DOCUMENTATION: Quality ID # 436: Final reports with documentation of one or more dose reduction techniques (e.g., Automated exposure control, adjustment of the mA and/or kV according to patient size, use of iterative reconstruction technique) copyright 2010 [employer]- All Rights Reserved Abdomen Ultrasound 10/07/19 00:00 IMPRESSION: 1. Limited visualization of the pancreas. 2. No abnormality of the liver, gallbladder and right kidney. 3. Right pleural effusion. Abdomen/Pelvis CT 10/07/19 00:00 IMPRESSION: No acute process is seen within the abdomen or pelvis. Extensive adenopathy is again seen at the bilateral inguinal, retroperitoneal, pelvic lymph nodes. Mild splenomegaly is also noted. Foot X-Ray 10/07/19 10:03 IMPRESSION: 1. Arthrodesis hardware that transfixes the 1st MTP joint. There is no periprosthetic fracture. 2. Dorsal soft tissue swelling. Interventional Vascular Procedure 10/08/19 00:00 IMPRESSION: SUCCESSFUL PLACEMENT OF A 5 FR DUAL LUMEN 36 CM PICC IN THE LEFT BASILIC VEIN. PICC Line Insertion 10/08/19 00:00 IMPRESSION: SUCCESSFUL PLACEMENT OF A 5 FR DUAL LUMEN 36 CM PICC IN THE LEFT BASILIC VEIN. Chest X-Ray 10/11/19 06:00 IMPRESSION: 1. Interval increase in bilateral pleural effusions with bibasilar opacities which may be related to pneumonia or pulmonary edema. Assessment and Plan - Diagnosis (1) MRSA bacteremia Is this a current diagnosis for this admission?: Yes Plan: Complicated MRSA bacteremia. Evaluated by infectious diseases. Recommendation is for IV vancomycin until 11/07/2019. Order placed to discharge planning to set up IV medication. Currently awaiting Medicaid approval. Repeat blood cultures obtained due to fever which may be from infection or from patient's lymphoma. If repeat blood cultures are negative at 48 hours, will place PICC line on Saturday. TTE showing no vegetations. (2) Foot abscess, left Is this a current diagnosis for this admission?: Yes Plan: Status post I&D. Wound culture growing MRSA likely source of bacteremia. Continue vancomycin. (3) Multifocal pneumonia Is this a current diagnosis for this admission?: Yes Plan: Noted on chest CT and chest x-ray. Continue vancomycin. Levaquin for 3 more days. 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 Chemo will be done through PICC line until bacteremia has been fully treated. (5) Cardiomyopathy Qualifiers: Cardiomyopathy type: unspecified Qualified Code(s): I42.9 - Cardiomyopathy, unspecified Is this a current diagnosis for this admission?: Yes Plan: BNP 4000 on 10/06/2019 and 27,000 after IV fluids on 10/07/2019 TTE 10/07/2019 showing EF of 45%, grade 1/4 mild diastolic dysfunction with LV hypokinesis. RV and atria show only mild borderline dilation. However estimated pulmonary arterial systolic pressure was normal. Despite elevated BNP and low EF, patient does not show clinical signs of acute congestive heart failure. However patient will need follow-up with cardiology and caution with IV fluids. Oncology recommending repeating echo and the patient is clinically better especially given plans for chemotherapy. Order placed for echo on Saturday - Plan Summary Summary: ID also recommending exchange of PICC line given 10/14/2019 Currently awaiting evaluation by infectious disease. This will help with determination need to proceed with LIZ for further evaluation of MRSA bacteremia and to help guide lines of therapy. Ideally patient will likely require 2 to 4 weeks of IV antibiotics or p.o. linezolid. We will maintain on vancomycin at this time. For patient's pneumonia, I will add Levaquin for now pending ID evaluation. This is in addition to the vancomycin which patient has been receiving. Repeat blood cultures remain negative. Discharge planning to work on Medicaid. 10/15/2019 Continue IV vancomycin. Continue Levaquin. Infectious disease consulted recommending IV vancomycin for 4 weeks for treatment of complicated MRSA bacteremia. As such, end date will be 11/07/2019 from first negative blood culture. ID also recommended exchange of PICC line because PICC line placed on 10/08/2019 was done when still bacteremic. We will work on getting this done tomorrow. I will also work on checking patient's coverage for linezolid, with the help of the personal financial planner, as this would be an adequate oral option. Vancomycin trough was subtherapeutic and some adequate vancomycin trough 15-20 was required. Will discuss dose adjustments with pharmacist. Oncology following regarding patient's T-cell lymphoma and anticipating starting chemo based on determination of duration of antibiotics. 10/16/2019 I have personally discussed with infectious disease provider who recommends using vancomycin instead of linezolid for treatment of patient's complicated MRSA bacteremia given patient's immunocompromised nature from his lymphoma and the fact that he is going to be on chemo. Patient spiked a one-time fever yesterday. I have discontinued Tylenol in order to monitor fever chart. Patient's PICC line will be removed today and his vancomycin will continue to be administered through peripheral IV. Repeat blood cultures will be obtained today and if blood cultures remain negative after 48 hours, PICC line will then be placed on Saturday to complete duration of antibiotics. End date of antibiotics is 11/07/2019 with weekly CMP and CRP as well as Vanco trough monitoring. Continue Levaquin for 4 more days for treatment of pneumonia. - Time Time Spent with patient: Less than 15 minutes
[2019-10-17] MEDS: LEVOFLOXACIN 750 MG TABLET PO SCH (17:08)
[2019-10-17] MEDS ORDERED: MIDODRINE HCL 5 MG TABLET PO ONE (19:00)
[2019-10-18] MEDS: PANTOPRAZOLE SODIUM 40 MG TABLET.DR PO SCH (05:33)
[2019-10-18 05:46] LABS: ANION GAP 12 (5-19); BLOOD UREA NITROGEN 26 mg/dL (7-20); CALCIUM 8.1 mg/dL (8.4-10.2); CARBON DIOXIDE 23 mmol/L (22-30); CHLORIDE 96 mmol/L (98-107); GLUCOSE 92 mg/dL (75-110); POTASSIUM 4.5 mmol/L (3.6-5.0)
[2019-10-18] MEDS: NORMAL SALINE 10 ML SDV (SCHEDULED) IV SCH ×2 (09:41→21:37)
[2019-10-18] MEDS: ENOXAPARIN SODIUM INJ 40 MG/0.4 ML DISP.SYRIN SUBCUT SCH (09:55)
[2019-10-18] MEDS: ATENOLOL 50 MG TABLET PO SCH (09:56)
[2019-10-18] MEDS: VANCOMYCIN HCL 1,000 MG in DEXTROSE 5%-WATER 250 ML IV SCH (09:57)
[2019-10-18] MEDS: ALLOPURINOL 300 MG TABLET PO SCH (09:57)
[2019-10-18] MEDS: NYSTATIN/DEXAMETH/DIPHEN SUSP 120 ML PO SCH ×4 (09:58→21:32)
[2019-10-18] MEDS ORDERED: MIDODRINE HCL 5 MG TABLET PO SCH (10:00)
[2019-10-18 10:21] LABS: ANION GAP 10 (5-19)
[2019-10-18 10:45] LABS: BLOOD UREA NITROGEN 27 mg/dL (7-20); CARBON DIOXIDE 24 mmol/L (22-30); CHLORIDE 98 mmol/L (98-107); GLUCOSE 89 mg/dL (75-110); POTASSIUM 4.5 mmol/L (3.6-5.0)
[2019-10-18 11:13] LABS: VANCOMYCIN,TROUGH 60.6 ug/mL (5.0-20.0)
[2019-10-18] MEDS ORDERED: NORMAL SALINE 1000 ML 1,000 ML IV ONE (11:30)
--- NOTE | 2019-10-18 11:38 | PDOC PROGRESS REPORT ---
Subjective Progress Note for:: 10/18/19 Subjective:: Patient denies any shortness of breath at this time. Comfortable in bed. Denies any chest pain abdominal pain. Has remained afebrile. Still awaiting knowledge about approval of his Medicaid application. Reason For Visit: RESPIRATORY DISTRESS,PNEUMONIA,SEPSIS,LYMPHOMA Physical Exam Vital Signs: Temp Pulse Resp BP Pulse Ox 98.9 F 86 16 95/40 L 90 L 10/18/19 07:20 10/18/19 07:20 10/18/19 07:20 10/18/19 07:20 10/18/19 07:20 Intake & Output 10/17/19 10/18/19 10/19/19 06:59 06:59 06:59 Intake Total 1900 2810 175 Balance 1900 2810 175 Weight 51.1 kg 51.4 kg General appearance: PRESENT: no acute distress, cooperative Neck exam: ABSENT: JVD Respiratory exam: PRESENT: clear to auscultation ramila, unlabored. ABSENT: tachypnea, wheezes Cardiovascular exam: PRESENT: RRR, +S1, +S2. ABSENT: tachycardia GI/Abdominal exam: PRESENT: normal bowel sounds, soft. ABSENT: rebound, rigid, tenderness Neurological exam: PRESENT: alert, awake, oriented to person, oriented to place, oriented to time Results Laboratory Results: 10/15/19 05:55 10/18/19 09:50 10/18/19 10/18/19 04:44 09:50 Sodium 131.1 L 131.7 L Potassium 4.5 4.5 Chloride 96 L 98 Carbon Dioxide 23 24 Anion Gap 12 10 BUN 26 H 27 H Creatinine 3.60 H 3.75 H Est GFR ( Amer) 21 L 20 L Glucose 92 89 Calcium 8.1 L 8.0 L 10/06/19 10/06/19 10/07/19 20:00 20:00 10:19 Troponin I < 0.012 NT-Pro-B Natriuret Pep 4000 H 39320 H 10/11/19 10/18/19 05:40 04:44 Troponin I NT-Pro-B Natriuret Pep 68909 H 3660 H Impressions: Chest/Abdomen CTA 10/06/19 21:18 IMPRESSION: Negative for pulmonary embolus, thoracic aortic aneurysm, or dissection. Extensive axillary and mediastinal adenopathy, also described previously. Small bilateral pleural effusions. Extensive patchy airspace opacities bilaterally predominantly having a groundglass appearance and likely reflecting pneumonia. Some of the opacities are somewhat nodular as well. While findings may reflect multifocal pneumonia, close follow-up following appropriate therapy is recommended. Metastatic disease is not excluded entirely. TECHNICAL DOCUMENTATION: Quality ID # 436: Final reports with documentation of one or more dose reduction techniques (e.g., Automated exposure control, adjustment of the mA and/or kV according to patient size, use of iterative reconstruction technique) copyright 2011 [employer]- All Rights Reserved Abdomen Ultrasound 10/07/19 00:00 IMPRESSION: 1. Limited visualization of the pancreas. 2. No abnormality of the liver, gallbladder and right kidney. 3. Right pleural effusion. Abdomen/Pelvis CT 10/07/19 00:00 IMPRESSION: No acute process is seen within the abdomen or pelvis. Extensive adenopathy is again seen at the bilateral inguinal, retroperitoneal, pelvic lymph nodes. Mild splenomegaly is also noted. Foot X-Ray 10/07/19 10:03 IMPRESSION: 1. Arthrodesis hardware that transfixes the 1st MTP joint. There is no periprosthetic fracture. 2. Dorsal soft tissue swelling. Interventional Vascular Procedure 10/08/19 00:00 IMPRESSION: SUCCESSFUL PLACEMENT OF A 5 FR DUAL LUMEN 36 CM PICC IN THE LEFT BASILIC VEIN. PICC Line Insertion 10/08/19 00:00 IMPRESSION: SUCCESSFUL PLACEMENT OF A 5 FR DUAL LUMEN 36 CM PICC IN THE LEFT BASILIC VEIN. Chest X-Ray 10/11/19 06:00 IMPRESSION: 1. Interval increase in bilateral pleural effusions with bibasilar opacities which may be related to pneumonia or pulmonary edema. Assessment and Plan - Diagnosis (1) MRSA bacteremia Is this a current diagnosis for this admission?: Yes Plan: Complicated MRSA bacteremia. Evaluated by infectious diseases who recommended IV vancomycin until 11/07/2019. TTE showing no vegetations. Plan for PICC line placement tomorrow. Reconsulted infectious disease regarding antibiotic regimen to see if IV linezolid will be an appropriate alternative if possible or d aptomycin with rifampin in light of patient's DARIUS and high vancomycin level today. (2) DARIUS (acute kidney injury) Is this a current diagnosis for this admission?: Yes Plan: Patient's creatinine as high as 3.75 today. Last prior measured was 0.8 but this was about 4 days ago. Vancomycin level on 10/13/2019 17 but is 60 today. Etiology of DARIUS is likely hypotension or vancomycin toxicity. Will give IV fluids today and monitor BMP. Vancomycin discontinued at this time. Check a random vancomycin level tomorrow morning. Monitor I's and O's strictly. (3) Hypotension Qualifiers: Hypotension type: unspecified hypotension type Qualified Code(s): I95.9 - Hypotension, unspecified Is this a current diagnosis for this admission?: Yes Plan: Patient notably often has blood pressures in the 90s systolic with low diastolic blood pressures. However appears very comfortable. No evidence of septic shock at this time. Patient does have a history of unilateral adrenalectomy a few years ago. Unfortunately he does not monitor his blood pressures at home for adequate comparison. I checked in a.m. cortisol level today which was comparably low at 4.9 raising suspicion for adrenal insufficiency. I will perform a cosyntropin test to confirm this. We will also check ACTH level prior to cosyntropin test but this may take a while to result as it is a send out lab. (4) Foot abscess, left Is this a current diagnosis for this admission?: Yes Plan: Status post I&D. Wound culture growing MRSA likely source of bacteremia. Continue antibiotics. Wound dressing. (5) Multifocal pneumonia Is this a current diagnosis for this admission?: Yes Plan: Noted on chest CT and chest x-ray with high procalcitonin of 33 on admission. Has been on vancomycin for several days now.. Levaquin for 2 more days. 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 Chemo will be done through PICC line until bacteremia has been fully treated. (7) Cardiomyopathy Is this a current diagnosis for this admission?: Yes Plan: BNP 4000 on 10/06/2019 and 27,000 after IV fluids on 10/07/2019 TTE 10/07/2019 showing EF of 45%, grade 1/4 mild diastolic dysfunction with LV hypokinesis. RV and atria show only mild borderline dilation. However estimated pulmonary arterial systolic pressure was normal. Despite elevated BNP which often fluctuates and low EF, patient does not show clinical signs of acute congestive heart failure. However patient will need follow-up with cardiology and caution with IV fluids. Oncology recommending repeating echo and the patient is clinically better especially given plans for chemotherapy. Order placed for echo on Saturday - Time Time Spent with patient: Less than 15 minutes
[2019-10-18] MEDS ORDERED: COSYNTROPIN INJ 0.25 MG VIAL IV ONE (12:30)
[2019-10-18 12:44] LABS: AMORPHOUS SEDIMENT,URINE TRACE /HPF; APPEARANCE,URINE CLOUDY; BILIRUBIN,URINE NEGATIVE (NEGATIVE); COLOR,URINE AMBER; GLUCOSE, URINE NEGATIVE (NEGATIVE); KETONES,URINE NEGATIVE (NEGATIVE); LEUKOCYTE ESTERASE,URINE NEGATIVE (NEGATIVE); NITRITE,URINE NEGATIVE (NEGATIVE); PROTEIN,URINE 30 mg/dL (NEGATIVE); URINE SPECIFIC GRAVITY 1.015; UROBILINOGEN,URINE NEGATIVE mg/dL (<2.0)
[2019-10-18] MEDS ORDERED: HYDROCORTISONE 10 MG TABLET PO SCH ×2 (15:30→22:00)
[2019-10-18] MEDS: FLUDROCORTISONE ACETATE 0.1 MG TABLET PO SCH (15:31)
[2019-10-18] MEDS: LEVOFLOXACIN 750 MG TABLET PO SCH (17:04)
[2019-10-18] MEDS ORDERED: HYDROCORTISONE SOD SUCCINATE INJ/PF 100 MG/2 ML SDV IV ONE (18:30)
[2019-10-18] MEDS: NORMAL SALINE 1000 ML 1,000 ML IV PRN (18:41)
[2019-10-19] MEDS: NORMAL SALINE 1000 ML 1,000 ML IV PRN ×2 (02:52→17:46)
[2019-10-19] MEDS: PANTOPRAZOLE SODIUM 40 MG TABLET.DR PO SCH (05:18)
[2019-10-19 07:45] LABS: ALBUMIN 2.7 g/dL (3.5-5.0); ALKALINE PHOSPHATASE 93 U/L (38-126); ANION GAP 8 (5-19); ASPARTATE AMINO TRANSFERASE 18 U/L (17-59); BILIRUBIN,DIRECT 0.1 mg/dL (0.0-0.4); BILIRUBIN,TOTAL 0.3 mg/dL (0.2-1.3); BLOOD UREA NITROGEN 28 mg/dL (7-20); CALCIUM 7.8 mg/dL (8.4-10.2); CARBON DIOXIDE 19 mmol/L (22-30); CHLORIDE 105 mmol/L (98-107); GLUCOSE 115 mg/dL (75-110); POTASSIUM 4.8 mmol/L (3.6-5.0); TOTAL PROTEIN 5.8 g/dL (6.3-8.2)
[2019-10-19 07:47] LABS: VANCOMYCIN,TROUGH 45.6 ug/mL (5.0-20.0)
[2019-10-19 07:59] LABS: ABSOLUTE LYMPHOCYTES (AUTO) 0.6 10^3/uL (0.5-4.7); ABSOLUTE MONOCYTES (AUTO) 0.3 10^3/uL (0.1-1.4); ABSOLUTE NEUT (AUTO) 3.4 10^3/uL (1.7-8.2); BASOPHILS % (AUTO) 1.1 % (0-2); EOSINOPHILS % (AUTO) 0.6 % (0-6); HEMATOCRIT 27.9 % (37.9-51.0); HEMOGLOBIN 9.5 g/dL (13.5-17.0); LYMPHOCYTES % (AUTO) 13.4 % (13-45); MEAN CORPUSCULAR HEMOGLOBIN 26.7 pg (27.0-33.4); MEAN CORPUSCULAR HGB CONC 33.9 g/dL (32.0-36.0); MEAN CORPUSCULAR VOLUME 79 fl (80-97); PLATELET COUNT 423 10^3/uL (150-450); RED BLOOD COUNT 3.53 10^6/uL (4.35-5.55); RED CELL DISTRIBUTION WIDTH 16.8 % (11.5-14.0); SEGMENTED NEUTROPHILS % (AUTO) 78.9 % (42-78); TOTAL CELLS COUNTED % (AUTO) 100 %; WHITE BLOOD COUNT 4.4 10^3/uL (4.0-10.5)
[2019-10-19] MEDS ORDERED: NORMAL SALINE 1000 ML 1,000 ML IV ONE (08:30)
[2019-10-19] MEDS: ENOXAPARIN SODIUM INJ 40 MG/0.4 ML DISP.SYRIN SUBCUT SCH (10:04)
[2019-10-19] MEDS: HYDROCORTISONE SOD SUCCINATE INJ/PF 100 MG/2 ML SDV IV SCH ×2 (10:04→17:50)
[2019-10-19] MEDS: NORMAL SALINE 10 ML SDV (SCHEDULED) IV SCH ×2 (10:22→21:09)
[2019-10-19] MEDS ORDERED: LIDOCAINE 1% INJ-PF (10 MG/ML) 30 ML SDV ONE (12:30)
[2019-10-19] MEDS ORDERED: FENTANYL CITRATE INJ/PF 100 MCG/2 ML AMPUL ONE (12:31)
[2019-10-19] MEDS ORDERED: MIDAZOLAM 2 MG/2 ML INJ ONE (13:00)
[2019-10-19] MEDS: ALLOPURINOL 300 MG TABLET PO SCH (13:53)
[2019-10-19] MEDS: NYSTATIN/DEXAMETH/DIPHEN SUSP 120 ML PO SCH ×4 (13:53→22:01)
[2019-10-19] MEDS: ATENOLOL 50 MG TABLET PO SCH (13:54)
--- NOTE | 2019-10-19 14:17 | PDOC PROGRESS REPORT ---
Subjective Progress Note for:: 10/19/19 Subjective:: Patient denies any shortness of breath or pain today. Still very curious to know if his Medicaid has been approved. Reason For Visit: RESPIRATORY DISTRESS,PNEUMONIA,SEPSIS,LYMPHOMA Physical Exam Vital Signs: Temp Pulse Resp BP Pulse Ox 97.6 F 76 16 99/48 L 98 10/19/19 07:48 10/19/19 07:48 10/19/19 07:48 10/19/19 07:48 10/19/19 07:48 Intake & Output 10/18/19 10/19/19 10/20/19 06:59 06:59 06:59 Intake Total 2810 3197 Output Total 365 Balance 2810 2832 Weight 51.4 kg 50.1 kg General appearance: PRESENT: no acute distress, cooperative Neck exam: ABSENT: JVD Respiratory exam: PRESENT: clear to auscultation ramila, symmetrical, unlabored. ABSENT: tachypnea, wheezes Cardiovascular exam: PRESENT: RRR, +S1, +S2. ABSENT: tachycardia GI/Abdominal exam: PRESENT: normal bowel sounds, soft. ABSENT: rebound, rigid, tenderness Neurological exam: PRESENT: alert, awake, oriented to person, oriented to place, oriented to time, oriented to situation Results Laboratory Results: 10/19/19 06:45 10/19/19 06:45 10/19/19 10/19/19 06:45 06:45 WBC 4.4 RBC 3.53 L Hgb 9.5 L Hct 27.9 L MCV 79 L MCH 26.7 L MCHC 33.9 RDW 16.8 H Plt Count 423 Seg Neutrophils % 78.9 H Sodium 132.4 L Potassium 4.8 Chloride 105 Carbon Dioxide 19 L Anion Gap 8 BUN 28 H Creatinine 3.87 H Est GFR ( Amer) 20 L Glucose 115 H Calcium 7.8 L Total Bilirubin 0.3 AST 18 Alkaline Phosphatase 93 Total Protein 5.8 L Albumin 2.7 L 10/06/19 10/06/19 10/07/19 20:00 20:00 10:19 Troponin I < 0.012 NT-Pro-B Natriuret Pep 4000 H 65699 H 10/11/19 10/18/19 05:40 04:44 Troponin I NT-Pro-B Natriuret Pep 18773 H 3660 H Impressions: Chest/Abdomen CTA 10/06/19 21:18 IMPRESSION: Negative for pulmonary embolus, thoracic aortic aneurysm, or dissection. Extensive axillary and mediastinal adenopathy, also described previously. Small bilateral pleural effusions. Extensive patchy airspace opacities bilaterally predominantly having a groundglass appearance and likely reflecting pneumonia. Some of the opacities are somewhat nodular as well. While findings may reflect multifocal pneumonia, close follow-up following appropriate therapy is recommended. Metastatic disease is not excluded entirely. TECHNICAL DOCUMENTATION: Quality ID # 436: Final reports with documentation of one or more dose reduction techniques (e.g., Automated exposure control, adjustment of the mA and/or kV according to patient size, use of iterative reconstruction technique) copyright 2011 [employer]- All Rights Reserved Abdomen Ultrasound 10/07/19 00:00 IMPRESSION: 1. Limited visualization of the pancreas. 2. No abnormality of the liver, gallbladder and right kidney. 3. Right pleural effusion. Abdomen/Pelvis CT 10/07/19 00:00 IMPRESSION: No acute process is seen within the abdomen or pelvis. Extensive adenopathy is again seen at the bilateral inguinal, retroperitoneal, pelvic lymph nodes. Mild splenomegaly is also noted. Foot X-Ray 10/07/19 10:03 IMPRESSION: 1. Arthrodesis hardware that transfixes the 1st MTP joint. There is no periprosthetic fracture. 2. Dorsal soft tissue swelling. Interventional Vascular Procedure 10/08/19 00:00 IMPRESSION: SUCCESSFUL PLACEMENT OF A 5 FR DUAL LUMEN 36 CM PICC IN THE LEFT BASILIC VEIN. PICC Line Insertion 10/08/19 00:00 IMPRESSION: SUCCESSFUL PLACEMENT OF A 5 FR DUAL LUMEN 36 CM PICC IN THE LEFT BASILIC VEIN. Chest X-Ray 10/11/19 06:00 IMPRESSION: 1. Interval increase in bilateral pleural effusions with bibasilar opacities which may be related to pneumonia or pulmonary edema. Assessment and Plan - Diagnosis (1) MRSA bacteremia Is this a current diagnosis for this admission?: Yes Plan: Complicated MRSA bacteremia. Evaluated by infectious diseases who recommended IV antibiotics until 11/07/2019. TTE showing no vegetations. Initially was on IV vancomycin which has been stopped due to DARIUS and accumulated levels. We will hold off on PICC line placement for now given DARIUS in order to maintain IV access if dialysis is eventually needed. We will place PICC line once renal function starts to show significant improvement. I discussed with infectious disease Dr. Way today regarding antibiotic regimen and will place on daptomycin once vancomycin levels dropped to subtherapeutic range. (2) DARIUS (acute kidney injury) Is this a current diagnosis for this admission?: Yes Plan: Creatinine showing improvement. 3.8 today. Baseline of 0.6-0.8. Etiology of DARIUS is likely vancomycin toxicity or hypotension Will give IV fluids today and monitor BMP and strict I's and O's Continue to monitor vancomycin levels Renal ultrasound Nephrology consulted. (3) Primary adrenal insufficiency Is this a current diagnosis for this admission?: Yes Plan: Likely the cause of patient's hypotension. Cosyntropin test performed showed no improvement of cortisol levels after administration of cosyntropin indicating primary adrenal insufficiency. Does have history of unilateral adrenalectomy from adrenal malignancy. Stress dose hydrocortisone. Sara. (4) Foot abscess, left Is this a current diagnosis for this admission?: Yes Plan: Status post I&D. Wound culture growing MRSA likely source of bacteremia. Wound dressing. (5) Multifocal pneumonia Is this a current diagnosis for this admission?: Yes Plan: Noted on chest CT and chest x-ray with high procalcitonin of 33 on admission. Has completed treatment of this with vancomycin and Levaquin. 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 Chemo will be done through PICC line until bacteremia has been fully treated. (7) Cardiomyopathy Qualifiers: Cardiomyopathy type: unspecified Qualified Code(s): I42.9 - Cardiomyopathy, unspecified Is this a current diagnosis for this admission?: Yes Plan: BNP 4000 on 10/06/2019 and 27,000 after IV fluids on 10/07/2019 TTE 10/07/2019 showing EF of 45%, grade 1/4 mild diastolic dysfunction with LV hypokinesis. RV and atria show only mild borderline dilation. However estimated pulmonary arterial systolic pressure was normal. Despite elevated BNP which often fluctuates and low EF, patient does not show clinical signs of acute congestive heart failure. However patient will need follow-up with cardiology and caution with IV fluids. Oncology recommending repeating echo and the patient is clinically better especially given plans for chemotherapy. Order placed for echo on Saturday - Time Time Spent with patient: Less than 15 minutes
[2019-10-19] MEDS ORDERED: FLUDROCORTISONE ACETATE 0.1 MG TABLET PO ONE (15:30)
--- NOTE | 2019-10-19 15:33 | XCELERA REPORT ---
[address] [address] Transthoracic Echocardiogram Report Name: MELITA SETH Age: 54 yrs Gender: Male : 1965 Patient Status: Inpatient Patient Location: [address] [place] [address] Study Date: 10/19/2019 12:28 PM Procedure: A two-dimensional transthoracic echocardiogram with color flow and Doppler was performed in limited views only. Study Quality: Good. Reason For Study: EF reassess. Cardiomyopathy. Pre-chemotherapy eval History: EF reassess. Cardiomyopathy. Pre-chemotherapy evalLLimited echo for LVEF. Ordering Physician: LIONEL EVANS Performed By: Trish Dooley Interpretation Summary The left ventricle is normal in size. There is normal left ventricular wall thickness. LV EF is 65% to 70% Left ventricular systolic function is normal. LV diastolic function not assessed. The left ventricular wall motion is normal. There is no thrombus. EF reassess. Cardiomyopathy. Pre-chemotherapy evalLLimited echo for LVEF. MMode/2D Measurements & Calculations RVDd: 2.5 cm LVIDd: 4.7 cm FS: 39.5 % Ao root diam: IVSd: 0.82 cm LVIDs: 2.9 cm EDV(Teich): 2.4 cm LVPWd: 0.82 cm 102.8 ml Ao root area: ESV(Teich): 30.9 ml4.7 cm2 EF(Teich): 70.0 % EDV(MOD-sp4): SV(MOD-sp4): 78.9 ml 57.2 ml ESV(MOD-sp4): 21.8 ml EF(MOD-sp4): 72.4 % Doppler Measurements & Calculations TR max bella: 273.4 cm/sec TR max P.0 mmHg Left Ventricle The left ventricle is normal in size. There is normal left ventricular wall thickness. LV EF is 65% to 70%. Left ventricular systolic function is normal. LV diastolic function not assessed. The left ventricular wall motion is normal. There is no thrombus. : LIONEL EVANS Lakshmi
--- NOTE | 2019-10-19 15:40 | PDOC CONSULTATION ---
Consultation Consult Date: 10/19/19 Provider Consulted: TA LOPES Consult reason:: DARIUS History of Present Illness Admission Date/PCP: 10/06/19 23:48 FABIANA LERMA MD History of Present Illness: MELITA SETH is a 54 year old male with history of hypertension, asthma, COPD, left adrenalectomy in 2009 and a newly diagnosed peripheral T-cell lymphoma after mediastinoscopy and biopsy now currently being followed by Dr. Yoo who was initially admitted on October 06, 2019 presenting with shortness of breath, nonproductive cough and a couple of days of chills. Admitting diagnosis was multifocal pneumonia and the patient was initially admitted in the floor. During the first day of admission in the floor, the patient developed hypotension so he was subsequently transferred to the ICU. He was then also further found to have a left foot abscess with subsequent sepsis. He underwent incision and drainage of the left foot abscess by Dr. Herrera on October 06. Blood cultures then became positive for MRSA. Patient was initially placed on ceftriaxone, clindamycin and finally vancomycin. Once the MRSA was diagnosed patient was just maintained on vancomycin starting on October 06. In the ICU he was being given few days of Solu-Medrol. I was told that he was also on Levoped but I could not find it on the medication list. Patient improved and was subsequently downgraded to the floor on October 12. While in the floor on October 16, he started having some lowish blood pressure, the lowest being 86/46 on October 16 and since then has been having blood pressure of 90 to low 100s over 40s to 50s. Due to hypotension he was given some IV fluids and due to the history of left adrenalectomy a cosyntropin test was performed yesterday. His cortisol levels have been on the low side which makes adrenal insufficiently highly likely. He was then started on Florinef and hydrocortisone currently on high dose. He did have a couple of doses of midodrine but that is now discontinued. He had an echocardiogram on October 06 which showed left ventricular ejection fraction of 45%, grade 1/4 mild diastolic dysfunction and mild global hypokinesia with right ventricular systolic function reduced. A repeat echocardiogram is done today looking for vegetations due to MRSA bacteremia. I asked the patient how his blood pressure has been since 2009 post adrenalectomy and he states that his blood pressure is usually around systolic blood pressure around 90s in he is okay with that not having any symptoms including dizziness nor lightheadedness. In terms of the kidney function the patient was admitted with a BUN of 18, creatinine of 0.7 with normal EGFR. For couple of days his kidney function got worse to BUN of 37 and creatinine of 1.4 in October 07 which subsequently improved. On October 13 he had a BUN of 10 with serum creatinine of 0.83. Yesterday, October 17 he had a BUN of 27, creatinine of 3.8 with EGFR of 21 and today he has a BUN of 28, creatinine of 3.87 with EGFR 20. His vancomycin trough level has been acceptable until October 12 when it was 17. Yesterday a vancomycin trough level was 60.6 and today it was 45.6. Vancomycin was held due to the elevated level. His urinalysis showed only protein of 30 without any blood. He has mildly low bicarbonate of 19 without any anion gap. Patient denies any problems with urination although his urine output is not being quantified until today. He denies any hematuria. He denies any current shortness of breath. He said he still has slight nonproductive cough but better. He denies any previous history of kidney disease nor kidney stones. He denies known history of prostate issues. Clinically the patient appears to be feeling fine and actually asking when he can go home. Past Medical History Cardiac Medical History: Reports: Hypertension-primary Pulmonary Medical History: Reports: Asthma, Bronchitis, Chronic Obstructive Pulmonary Disease (COPD), Pneumonia, Respiratory Failure Malignancy Medical History: Reports: Lymphoma - Peripheral T-Cell, S/P Mediastinoscopy/biopsy Psychiatric Medical History: Reports: Bipolar Disorder, Depression Past Surgical History Past Surgical History: Reports: Orthopedic Surgery - plate/screws in Left big toe, Other - Left adrenalectomy, Benign lesion Social History Information Source: Patient Smoking Status: Never Smoker Electronic Cigarette use?: No Frequency of Alcohol Use: Heavy - Drinks 4 berrs daily for years Hx Recreational Drug Use: No Drugs: None Hx Prescription Drug Abuse: No - Advance Directive Resuscitation Status: Full Code Family History Family History: Malignancy - Father of throat and lung cancer, brother has throat cancer Family History: Denies kidney problems in the family. Parental Family History Reviewed: Yes Children Family History Reviewed: Yes Sibling(s) Family History Reviewed.: Yes Medication/Allergy Home Medications: Hydroxyzine Pamoate [Vistaril 25 mg Capsule] 25 mg PO Q8HP PRN 09/25/19 Potassium Chloride [Klor-Con 10 Meq Tablet ER] 20 meq PO BID 30 Days #60 tab let.er 09/28/19 Prednisone 10 mg PO ASDIR 30 Days #105 tablet 09/28/19 Atenolol [Tenormin] 12.5 mg PO DAILY 10/07/19 Hydrocodone/Acetaminophen [[place] 5-325 Tablet] 1 each PO Q6HP PRN 10/07/19 Allergies/Adverse Reactions: No Known Allergies Allergy (Verified 09/24/19 20:04) Review of Systems All systems: reviewed and no additional remarkable complaints except as stated Review of Systems: Constitutional: ABSENT: chills, fatigue, fever(s), headache(s), weight gain, weight loss Eyes: ABSENT: visual disturbances Ears: ABSENT: hearing changes Cardiovascular: ABSENT: chest pain, dyspnea on exertion, edema, orthropnea, palpitations Respiratory: ABSENT: Dyspnea, hemoptysis; admits nonproductive cough Gastrointestinal: ABSENT: abdominal pain, constipation, diarrhea, hematemesis, hematochezia, nausea, vomiting Genitourinary: ABSENT: dysuria, hematuria Musculoskeletal: ABSENT: joint swelling Integumentary: ABSENT: rash, wounds Neurological: ABSENT: abnormal gait, abnormal speech, confusion, dizziness, focal weakness, numbness, syncope Psychiatric: ABSENT: anxiety, depression Endocrine: ABSENT: cold intolerance, heat intolerance, polydipsia, polyuria Hematologic/Lymphatic: ABSENT: easy bleeding, easy bruising, lymphadenopathy Physical Exam Vital Signs: Temp Pulse Resp BP Pulse Ox 97.6 F 76 16 99/48 L 98 10/19/19 07:48 10/19/19 07:48 10/19/19 07:48 10/19/19 07:48 10/19/19 07:48 Intake & Output 10/18/19 10/19/19 10/20/19 06:59 06:59 06:59 Intake Total 2810 3197 Output Total 365 Balance 2810 2832 Weight 51.4 kg 50.1 kg Exam: General appearance: No acute distress, cooperative, well-developed, well- nourished Head exam: PRESENT: atraumatic, normocephalic Eye exam: PRESENT: Conjunctiva [place], EOMI, PERRLA. ABSENT: conjunctival injection, scleral icterus Mouth exam: PRESENT: moist, neck supple, tongue midline Neck exam: PRESENT: full ROM. ABSENT: carotid bruit, JVD, lymphadenopathy, thyromegaly Respiratory exam: PRESENT: clear to auscultation bilaterally. ABSENT: rales, rhonchi, stridor, wheezes Cardiovascular exam: PRESENT: RRR, +S1, +S2. ABSENT: systolic murmur Pulses: PRESENT: normal radial pulses, normal dorsalis pedis pulses GI/Abdominal exam: PRESENT: normal bowel sounds, soft. ABSENT: guarding, mass, tenderness Rectal exam: Deferred Extremities exam: PRESENT: full ROM. ABSENT: calf tenderness, pedal edema Musculoskeletal: PRESENT: full ROM. ABSENT: deformity Neurological exam: PRESENT: alert, Awake, Oriented to person, Oriented to place, Oriented to time, reflexes normal, CN II-XII grossly intact. ABSENT: motor sen stiven deficit Psychiatric exam: PRESENT: appropriate affect, normal mood. ABSENT: homicidal ideation, suicidal ideation Skin exam: PRESENT: intact, dry, warm. ABSENT: rash Results Laboratory Results: 10/19/19 06:45 10/19/19 06:45 10/18/19 10/19/19 10/19/19 11:55 06:45 06:45 WBC 4.4 RBC 3.53 L Hgb 9.5 L Hct 27.9 L MCV 79 L MCH 26.7 L MCHC 33.9 RDW 16.8 H Plt Count 423 Seg Neutrophils % 78.9 H Sodium 132.4 L Potassium 4.8 Chloride 105 Carbon Dioxide 19 L Anion Gap 8 BUN 28 H Creatinine 3.87 H Est GFR ( Amer) 20 L Glucose 115 H Calcium 7.8 L Total Bilirubin 0.3 AST 18 Alkaline Phosphatase 93 Total Protein 5.8 L Albumin 2.7 L Urine Color JOSE ENRIQUE Urine Appearance CLOUDY Urine pH 5.0 Ur Specific [place] 1.015 Urine Protein 30 H Urine Glucose (UA) NEGATIVE Urine Ketones NEGATIVE Urine Blood NEGATIVE Urine Nitrite NEGATIVE Ur Leukocyte Esterase NEGATIVE Urine WBC (Auto) 0 10/06/19 10/06/19 10/07/19 20:00 20:00 10:19 Troponin I < 0.012 NT-Pro-B Natriuret Pep 4000 H 47163 H 10/11/19 10/18/19 05:40 04:44 Troponin I NT-Pro-B Natriuret Pep 76533 H 3660 H Impressions: Chest/Abdomen CTA 10/06/19 21:18 IMPRESSION: Negative for pulmonary embolus, thoracic aortic aneurysm, or dissection. Extensive axillary and mediastinal adenopathy, also described previously. Small bilateral pleural effusions. Extensive patchy airspace opacities bilaterally predominantly having a groundglass appearance and likely reflecting pneumonia. Some of the opacities are somewhat nodular as well. While findings may reflect multifocal pneumonia, close follow-up following appropriate therapy is recommended. Metastatic disease is not excluded entirely. TECHNICAL DOCUMENTATION: Quality ID # [id number]: Final reports with documentation of one or more dose reduction techniques (e.g., Automated exposure control, adjustment of the mA and/or kV according to patient size, use of iterative reconstruction technique) copyright 2011 [employer]- All Rights Reserved Abdomen Ultrasound 10/07/19 00:00 IMPRESSION: 1. Limited visualization of the pancreas. 2. No abnormality of the liver, gallbladder and right kidney. 3. Right pleural effusion. Abdomen/Pelvis CT 10/07/19 00:00 IMPRESSION: No acute process is seen within the abdomen or pelvis. Extensive adenopathy is again seen at the bilateral inguinal, retroperitoneal, pelvic lymph nodes. Mild splenomegaly is also noted. Foot X-Ray 10/07/19 10:03 IMPRESSION: 1. Arthrodesis hardware that transfixes the 1st MTP joint. There is no periprosthetic fracture. 2. Dorsal soft tissue swelling. Interventional Vascular Procedure 10/08/19 00:00 IMPRESSION: SUCCESSFUL PLACEMENT OF A 5 FR DUAL LUMEN 36 CM PICC IN THE LEFT BASILIC VEIN. PICC Line Insertion 10/08/19 00:00 IMPRESSION: SUCCESSFUL PLACEMENT OF A 5 FR DUAL LUMEN 36 CM PICC IN THE LEFT BASILIC VEIN. Chest X-Ray 10/11/19 06:00 IMPRESSION: 1. Interval increase in bilateral pleural effusions with bibasilar opacities which may be related to pneumonia or pulmonary edema. Assessment & Plan - Diagnosis (1) DARIUS (acute kidney injury) Is this a current diagnosis for this admission?: Yes Plan: Although urine output is not quantified he appears to be nonoliguric. With temp oral relations I think this is due to a combination of vancomycin toxicity and relative hypotension compared to his baseline for the last few days. Agree with discontinuation of vancomycin. Agree with treating the patient for possible adrenal insufficiency to maintain an adequate blood pressure. There is no indication for an acute renal replacement therapy at this time. However we will continue to monitor his kidney function and electrolytes this patients with vancomycin toxicity have a variable course and can get worse before it gets better. Avoid nephrotoxic medications. Adjust medications accordingly per kidney function. Strict intake and output recording. We will check urine for sodium, creatinine and eosinophils. I will also check kidney ultrasound. (2) Hypotension Qualifiers: Hypotension type: unspecified hypotension type Qualified Code(s): I95.9 - Hypotension, unspecified Is this a current diagnosis for this admission?: Yes Plan: Most likely secondary to adrenal insufficiency with baseline relatively low blood pressure. It might be beneficial to maintain at least a systolic blood pressure of low 100's in this patient. (3) Adrenal insufficiency Is this a current diagnosis for this admission?: Yes Plan: Status post left adrenalectomy for benign lesion in 2009. Agree with hydrocortisone and Florinef. (4) Metabolic acidosis Is this a current diagnosis for this admission?: Yes (5) Anemia of chronic disease Is this a current diagnosis for this admission?: Yes Plan: Mild, due to DARIUS. Monitor. (6) MRSA bacteremia Is this a current diagnosis for this admission?: Yes Plan: Treated with IV vancomycin from October 06 until October 17, currently on hold due to toxic trough levels. Infectious disease recommended shifting to daptomycin once a vancomycin trough level has gone down. Apparently no vegetations on echocardiogram. In terms of planning for a vascular abscess for continued home IV antibiotics, I will wait until the patient's kidney function with at least shows any improvement of her renal recovery before putting in a PICC line. Since the patient has a normal baseline kidney function I think PICC line could be placed only if the patient is showing renal recovery. However the patient's kidney function continues to get worse, then with the possible need for renal replacement therapy I would not place a PICC line. Discussed this with Dr. Damon today. (7) Hyponatremia Is this a current diagnosis for this admission?: Yes Plan: Mild and euvolemic. Monitor for now. (8) Cellulitis and abscess of foot Is this a current diagnosis for this admission?: Yes (9) Multifocal pneumonia Is this a current diagnosis for this admission?: Yes (10) Cardiomyopathy Qualifiers: Cardiomyopathy type: unspecified Qualified Code(s): I42.9 - Cardiomyopathy, unspecified Is this a current diagnosis for this admission?: Yes Plan: LVEF of 45% and grade 1/4 mild diastolic dysfunction with mild global hypokinesia and reduced right ventricular systolic function. - Time Time Spent: Greater than 70 Minutes
--- NOTE | 2019-10-19 17:27 | Progress Note ---
Provider Note Provider Note: [facility] Follow Up Chart reviewed. Patient is a 54-year-old man who was recently diagnosed with Lymphoma, also a hyperactive adrenal ademona s/p adrenalectomy currently on steroids who was admitted earlier this month due to shortness of breath, cough and and chills. On admission he was found septic from MRSA bacteremia, multifocal pneumonia and left foot abscess. Patient was febrile, WBC 29k, hypotensive. He was transferred to the MICU although no vasopressors were required. He was evaluated by surgery and I&D was performed expressing purulent drainage. X ray of the left foot showed orthopedic HW but not in the area of the abscess. No bony erosions described. Patient's blood cultures on 10/05 and 10/07 were positive for MRSA. Blood culture from 10/09 remained negative. Respiratory cultures were also positive for MRSA. TTE was negative for vegetations. He had a repeat CXR on 10/10 that demonstrated increased opacities and pleural effusion, but clinically patient was doing better. Leukocytosis improved. He has been followed by oncology for lymphoma as well. He has been on vancomycin but he had an elevated trough and acute kidney injury. Vitals: Temp Pulse Resp BP Pulse Ox 97.6 F 76 16 99/48 L 98 10/19/19 07:48 10/19/19 07:48 10/19/19 07:48 10/19/19 07:48 10/19/19 07:48 Intake & Output 10/18/19 10/19/19 10/20/19 06:59 06:59 06:59 Intake Total 2810 3197 Output Total 365 Balance 2810 2832 Weight 51.4 kg 50.1 kg Weight/Height Weight 50.1 kg Height 5 ft Laboratories 10/19/19 06:45 10/19/19 06:45 MCV 79 fl (80-97) L 10/19/19 06:45 MCH 26.7 pg (27.0-33.4) L 10/19/19 06:45 MCHC 33.9 g/dL (32.0-36.0) 10/19/19 06:45 RDW 16.8 % (11.5-14.0) H 10/19/19 06:45 Seg Neutrophils % 78.9 % (42-78) H 10/19/19 06:45 Carbonic Acid 1.18 mmol/L (1.05-1.35) 10/07/19 01:45 HCO3/H2CO3 Ratio 20:1 10/07/19 01:45 ABG pH 7.40 (7.35-7.45) 10/07/19 01:45 ABG pCO2 39.3 mmHg (35-45) 10/07/19 01:45 ABG pO2 64.9 mmHg (80-100) L 10/07/19 01:45 ABG HCO3 23.9 mmol/L (20-24) 10/07/19 01:45 ABG O2 Saturation 92.8 % (94-98) L 10/07/19 01:45 ABG Base Excess -0.7 mmol/L 10/07/19 01:45 FiO2 4L 10/07/19 01:45 Chloride 105 mmol/L (98-107) 10/19/19 06:45 Carbon Dioxide 19 mmol/L (22-30) L 10/19/19 06:45 Anion Gap 8 (5-19) 10/19/19 06:45 Est GFR ( Amer) 20 (>60) L 10/19/19 06:45 Glucose 115 mg/dL (75-110) H 10/19/19 06:45 Lactic Acid 2.1 mmol/L (0.7-2.1) 10/08/19 01:38 Calcium 7.8 mg/dL (8.4-10.2) L 10/19/19 06:45 Ionized Calcium [place] 1.12 mmol/L (1.14-1.30) L 10/09/19 04:45 Phosphorus 3.9 mg/dL (2.5-4.5) D 10/09/19 04:45 Magnesium 1.7 mg/dL (1.6-2.3) 10/14/19 06:11 Total Bilirubin 0.3 mg/dL (0.2-1.3) 10/19/19 06:45 AST 18 U/L (17-59) 10/19/19 06:45 Alkaline Phosphatase 93 U/L (38-126) 10/19/19 06:45 C-Reactive Protein 260.4 mg/L (<10.0) H 10/07/19 10:19 Total Protein 5.8 g/dL (6.3-8.2) L 10/19/19 06:45 Albumin 2.7 g/dL (3.5-5.0) L 10/19/19 06:45 Lipase 26.4 U/L (23-300) 10/07/19 04:16 Urine Color JOSE ENRIQUE 10/18/19 11:55 Urine Appearance CLOUDY 10/18/19 11:55 Urine pH 5.0 (5.0-9.0) 10/18/19 11:55 Ur Specific [place] 1.015 10/18/19 11:55 Urine Protein 30 mg/dL (NEGATIVE) H 10/18/19 11:55 Urine Glucose (UA) NEGATIVE mg/dL (NEGATIVE) 10/18/19 11:55 Urine Ketones NEGATIVE mg/dL (NEGATIVE) 10/18/19 11:55 Urine Blood NEGATIVE (NEGATIVE) 10/18/19 11:55 Urine Nitrite NEGATIVE (NEGATIVE) 10/18/19 11:55 Ur Leukocyte Esterase NEGATIVE (NEGATIVE) 10/18/19 11:55 Urine WBC (Auto) 0 /HPF 10/18/19 11:55 Urine RBC (Auto) 1 /HPF 10/07/19 07:35 Urine Osmolality 380 mOsm/kg (300-900) 10/07/19 23:20 10/06/19 10/06/19 10/07/19 20:00 20:00 10:19 Troponin I < 0.012 NT-Pro-B Natriuret Pep 4000 H 61305 H 10/11/19 10/18/19 05:40 04:44 Troponin I NT-Pro-B Natriuret Pep 28339 H 3660 H Microbiology Blood cultures: 3/3 MRSA 3/5 MRSA 3/7 Negative 13 NGTD Sputum Culture /6 MRSA Radiology: Chest/Abdomen CTA 10/06/19 21:18 IMPRESSION: Negative for pulmonary embolus, thoracic aortic aneurysm, or dissection. Extensive axillary and mediastinal adenopathy, also described previously. Small bilateral pleural effusions. Extensive patchy airspace opacities bilaterally predominantly having a groundglass appearance and likely reflecting pneumonia. Some of the opacities are somewhat nodular as well. While findings may reflect multifocal pneumonia, close follow-up following appropriate therapy is recommended. Metastatic disease is not excluded entirely. Abdomen Ultrasound 10/07/19 00:00 IMPRESSION: 1. Limited visualization of the pancreas. 2. No abnormality of the liver, gallbladder and right kidney. 3. Right pleural effusion. Abdomen/Pelvis CT 10/07/19 00:00 IMPRESSION: No acute process is seen within the abdomen or pelvis. Extensive adenopathy is again seen at the bilateral inguinal, retroperitoneal, pelvic lymph nodes. Mild splenomegaly is also noted. Foot X-Ray 10/07/19 10:03 IMPRESSION: 1. Arthrodesis hardware that transfixes the 1st MTP joint. There is no periprosthetic fracture. 2. Dorsal soft tissue swelling. Interventional Vascular Procedure 10/08/19 00:00 IMPRESSION: SUCCESSFUL PLACEMENT OF A 5 FR DUAL LUMEN 36 CM PICC IN THE LEFT BASILIC VEIN. PICC Line Insertion 10/08/19 00:00 IMPRESSION: SUCCESSFUL PLACEMENT OF A 5 FR DUAL LUMEN 36 CM PICC IN THE LEFT BASILIC VEIN. Chest X-Ray 10/11/19 06:00 IMPRESSION: 1. Interval increase in bilateral pleural effusions with bibasilar opacities which may be related to pneumonia or pulmonary edema. Assessment and Recommendations: Patient with MRSA bacteremia from left foot abscess and multifocal pneumonia (resolved) in the setting of immunosuppression due to lymphoma. Patient has cl eared the bacteremia on 10/09. TTE was negative for vegetations. No stigmata of endocarditis per notes. He had source control in the left foot. PICC line has been removed and new cultures drawn on 10/15. A new PICC line can be placed. He developed DARIUS with vancomycin with significantly elevated trough. Daptomycin is the alternative to complete therapy. Pneumonia already resolved, he completed almost 2 weeks of treatment with vancomycin. He will finish antibiotic therapy on 11/07/19. He is not on any statins. Monitor CK weekly while on daptomycin. Please call back if any questions. Jaja Way MD U ID [phone]
--- NOTE | 2019-10-19 23:24 | RADIOLOGY REPORT (SQ) ---
EXAM DESCRIPTION: US RETROPERITONEUM LIMITED COMPLETED DATE/TME: 10/19/2019 00:00 CLINICAL HISTORY: 54 years, Male, DARIUS COMPARISON: 10/07/2019 ultrasound TECHNIQUE: Transverse longitudinal sonographic images of the kidneys and urinary bladder LIMITATIONS: None. FINDINGS: The right kidney measures 9.5 x 5.1 x 3.9 cm, the left 10.6 x 4.9 x 3.4 cm. No renal calculus, mass, or hydronephrosis. No perinephric fluid collection. Cortical medullary differentiation is preserved bilaterally. Subjective urinary bladder wall thickening may reflect incomplete distention. IMPRESSION: Unremarkable appearance to the kidneys bilaterally copyright 2010 [employer]- All Rights Reserved
[2019-10-20] MEDS: NORMAL SALINE 1000 ML 1,000 ML IV PRN ×2 (03:09→15:18)
[2019-10-20] MEDS: HYDROCORTISONE SOD SUCCINATE INJ/PF 100 MG/2 ML SDV IV SCH ×3 (03:15→17:04)
[2019-10-20] MEDS: PANTOPRAZOLE SODIUM 40 MG TABLET.DR PO SCH (05:37)
[2019-10-20 06:26] LABS: ANION GAP 11 (5-19); BLOOD UREA NITROGEN 33 mg/dL (7-20); CALCIUM 7.9 mg/dL (8.4-10.2); CARBON DIOXIDE 18 mmol/L (22-30); CHLORIDE 111 mmol/L (98-107); PHOSPHORUS 4.9 mg/dL (2.5-4.5); POTASSIUM 4.6 mmol/L (3.6-5.0)
[2019-10-20 06:35] LABS: VANCOMYCIN,TROUGH 34.6 ug/mL (5.0-20.0)
[2019-10-20 06:50] LABS: GLUCOSE 135 mg/dL (75-110)
[2019-10-20 07:18] LABS: URINE CREATININE 188.1 mg/dL (22-328)
[2019-10-20 07:41] LABS: EOSINOPHIL SMEAR NO EOSINOPHILS SEEN; SPECIMEN TYPE URINE
--- NOTE | 2019-10-20 08:04 | PDOC PROGRESS REPORT ---
Subjective Progress Note for:: 10/20/19 Subjective:: Reviewed recent chart and discussed with pt about current status of medical care. Kidney function slightly better today. Reason For Visit: RESPIRATORY DISTRESS,PNEUMONIA,SEPSIS,LYMPHOMA Physical Exam Vital Signs: Temp Pulse Resp BP Pulse Ox 97.5 F 81 16 105/53 L 100 10/19/19 23:08 10/19/19 23:08 10/19/19 23:08 10/19/19 23:08 10/19/19 23:08 Intake & Output 10/19/19 10/20/19 10/21/19 06:59 06:59 06:59 Intake Total 3197 2350 Output Total 365 775 Balance 2832 1575 Weight 50.1 kg 48.7 kg General appearance: PRESENT: no acute distress, well-developed, well-nourished Head exam: PRESENT: atraumatic, normocephalic Eye exam: PRESENT: conjunctiva pink, EOMI, PERRLA. ABSENT: scleral icterus Ear exam: PRESENT: normal external ear exam Mouth exam: PRESENT: moist, tongue midline Neck exam: ABSENT: carotid bruit, JVD, lymphadenopathy, thyromegaly Respiratory exam: PRESENT: clear to auscultation ramila. ABSENT: rales, rhonchi, wheezes Cardiovascular exam: PRESENT: RRR. ABSENT: diastolic murmur, rubs, systolic murmur Pulses: PRESENT: normal dorsalis pedis pul Vascular exam: PRESENT: normal capillary refill GI/Abdominal exam: PRESENT: normal bowel sounds, soft. ABSENT: distended, guarding, mass, organolmegaly, rebound, tenderness Rectal exam: PRESENT: deferred Extremities exam: PRESENT: full ROM. ABSENT: calf tenderness, clubbing, pedal edema Neurological exam: PRESENT: alert, awake, oriented to person, oriented to place, oriented to time, oriented to situation, CN II-XII grossly intact. ABSENT: motor sensory deficit Psychiatric exam: PRESENT: appropriate affect, normal mood. ABSENT: homicidal ideation, suicidal ideation Skin exam: PRESENT: dry, intact, warm. ABSENT: cyanosis, rash Results Laboratory Results: 10/19/19 06:45 10/20/19 05:34 10/19/19 10/20/19 06:45 05:34 WBC 4.4 RBC 3.53 L Hgb 9.5 L Hct 27.9 L MCV 79 L MCH 26.7 L MCHC 33.9 RDW 16.8 H Plt Count 423 Seg Neutrophils % 78.9 H Sodium 140.4 Potassium 4.6 Chloride 111 H Carbon Dioxide 18 L Anion Gap 11 BUN 33 H Creatinine 3.50 H Est GFR ( Amer) 22 L Glucose 135 H Calcium 7.9 L Phosphorus 4.9 H 10/06/19 10/06/19 10/07/19 20:00 20:00 10:19 Troponin I < 0.012 NT-Pro-B Natriuret Pep 4000 H 05241 H 10/11/19 10/18/19 05:40 04:44 Troponin I NT-Pro-B Natriuret Pep 46374 H 3660 H Impressions: Chest/Abdomen CTA 10/06/19 21:18 IMPRESSION: Negative for pulmonary embolus, thoracic aortic aneurysm, or dissection. Extensive axillary and mediastinal adenopathy, also described previously. Small bilateral pleural effusions. Extensive patchy airspace opacities bilaterally predominantly having a groundglass appearance and likely reflecting pneumonia. Some of the opacities are somewhat nodular as well. While findings may reflect multifocal pneumonia, close follow-up following appropriate therapy is recommended. Metastatic disease is not excluded entirely. TECHNICAL DOCUMENTATION: Quality ID # 436: Final reports with documentation of one or more dose reduction techniques (e.g., Automated exposure control, adjustment of the mA and/or kV according to patient size, use of iterative reconstruction technique) copyright 2011 [employer]- All Rights Reserved Abdomen Ultrasound 10/07/19 00:00 IMPRESSION: 1. Limited visualization of the pancreas. 2. No abnormality of the liver, gallbladder and right kidney. 3. Right pleural effusion. Abdomen/Pelvis CT 10/07/19 00:00 IMPRESSION: No acute process is seen within the abdomen or pelvis. Extensive adenopathy is again seen at the bilateral inguinal, retroperitoneal, pelvic lymph nodes. Mild splenomegaly is also noted. Foot X-Ray 10/07/19 10:03 IMPRESSION: 1. Arthrodesis hardware that transfixes the 1st MTP joint. There is no periprosthetic fracture. 2. Dorsal soft tissue swelling. Interventional Vascular Procedure 10/08/19 00:00 IMPRESSION: SUCCESSFUL PLACEMENT OF A 5 FR DUAL LUMEN 36 CM PICC IN THE LEFT BASILIC VEIN. PICC Line Insertion 10/08/19 00:00 IMPRESSION: SUCCESSFUL PLACEMENT OF A 5 FR DUAL LUMEN 36 CM PICC IN THE LEFT BASILIC VEIN. Chest X-Ray 10/11/19 06:00 IMPRESSION: 1. Interval increase in bilateral pleural effusions with bibasilar opacities which may be related to pneumonia or pulmonary edema. 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 Is this a current diagnosis for this admission?: Yes Plan: Hopeful initiation of chemo in 2-3 wk time (3) Leukocytosis Qualifiers: Leukocytosis type: bandemia Qualified Code(s): D72.825 - Bandemia Is this a current diagnosis for this admission?: Yes Plan: Improved (4) Cellulitis and abscess of foot Is this a current diagnosis for this admission?: Yes Plan: Improved (5) MRSA bacteremia Is this a current diagnosis for this admission?: Yes Plan: Improved (6) DARIUS (acute kidney injury) Is this a current diagnosis for this admission?: Yes Plan: Vanc related in part but likely multifactorial, will follow - Time Time Spent with patient: 15-24 minutes - Inpatient Certification Based on my medical assessment, after consideration of the patient's comorbidities, presenting symptoms, or acuity I expect that the services needed warrant INPATIENT care.: Yes I certify that my determination is in accordance with my understanding of Medicare's requirements for reasonable and necessary INPATIENT services [42 CFR 412.3e].: Yes
[2019-10-20] MEDS: ENOXAPARIN SODIUM INJ 40 MG/0.4 ML DISP.SYRIN SUBCUT SCH (09:01)
[2019-10-20] MEDS: NORMAL SALINE 10 ML SDV (SCHEDULED) IV SCH ×2 (09:02→21:08)
[2019-10-20] MEDS: NYSTATIN/DEXAMETH/DIPHEN SUSP 120 ML PO SCH ×4 (09:06→21:02)
[2019-10-20] MEDS: ALLOPURINOL 300 MG TABLET PO SCH (09:07)
[2019-10-20] MEDS: ATENOLOL 50 MG TABLET PO SCH (09:07)
[2019-10-20] MEDS: FLUDROCORTISONE ACETATE 0.1 MG TABLET PO SCH (09:34)
--- NOTE | 2019-10-20 15:33 | PDOC PROGRESS REPORT ---
Subjective Progress Note for:: 10/20/19 Subjective:: Patient was devastated that his creatinine was not showing significant improvement today. Devastated that he would have to stay in the hospital to continue treatment for the next couple of days. He broke out into tears stating that his said she would leave him because of all his multiple medical problems and that she is tired of following up with all of these things. Otherwise denies any shortness of breath, chest pain or confusion. Reason For Visit: RESPIRATORY DISTRESS,PNEUMONIA,SEPSIS,LYMPHOMA Physical Exam Vital Signs: Temp Pulse Resp BP Pulse Ox 97.5 F 89 17 103/60 99 10/20/19 08:17 10/20/19 08:17 10/20/19 08:17 10/20/19 08:17 10/20/19 08:17 Intake & Output 10/19/19 10/20/19 10/21/19 06:59 06:59 06:59 Intake Total 3197 2350 1000 Output Total 365 775 Balance 2832 1575 1000 Weight 50.1 kg 48.7 kg General appearance: PRESENT: no acute distress, cooperative Neck exam: ABSENT: JVD Respiratory exam: PRESENT: clear to auscultation ramila, unlabored. ABSENT: tachypnea, wheezes Cardiovascular exam: PRESENT: RRR, +S1, +S2. ABSENT: tachycardia GI/Abdominal exam: PRESENT: soft. ABSENT: rebound, rigid, tenderness Neurological exam: PRESENT: alert, awake, oriented to person, oriented to place, oriented to time Results Laboratory Results: 10/19/19 06:45 10/20/19 05:34 10/20/19 05:34 Sodium 140.4 Potassium 4.6 Chloride 111 H Carbon Dioxide 18 L Anion Gap 11 BUN 33 H Creatinine 3.50 H Est GFR ( Amer) 22 L Glucose 135 H Calcium 7.9 L Phosphorus 4.9 H 10/06/19 10/06/19 10/07/19 20:00 20:00 10:19 Troponin I < 0.012 NT-Pro-B Natriuret Pep 4000 H 97311 H 10/11/19 10/18/19 05:40 04:44 Troponin I NT-Pro-B Natriuret Pep 81174 H 3660 H Impressions: Chest/Abdomen CTA 10/06/19 21:18 IMPRESSION: Negative for pulmonary embolus, thoracic aortic aneurysm, or dissection. Extensive axillary and mediastinal adenopathy, also described previously. Small bilateral pleural effusions. Extensive patchy airspace opacities bilaterally predominantly having a groundglass appearance and likely reflecting pneumonia. Some of the opacities are somewhat nodular as well. While findings may reflect multifocal pneumonia, close follow-up following appropriate therapy is recommended. Metastatic disease is not excluded entirely. TECHNICAL DOCUMENTATION: Quality ID # 436: Final reports with documentation of one or more dose reduction techniques (e.g., Automated exposure control, adjustment of the mA and/or kV according to patient size, use of iterative reconstruction technique) copyright 2010 [employer]- All Rights Reserved Abdomen Ultrasound 10/07/19 00:00 IMPRESSION: 1. Limited visualization of the pancreas. 2. No abnormality of the liver, gallbladder and right kidney. 3. Right pleural effusion. Abdomen/Pelvis CT 10/07/19 00:00 IMPRESSION: No acute process is seen within the abdomen or pelvis. Extensive adenopathy is again seen at the bilateral inguinal, retroperitoneal, pelvic lymph nodes. Mild splenomegaly is also noted. Foot X-Ray 10/07/19 10:03 IMPRESSION: 1. Arthrodesis hardware that transfixes the 1st MTP joint. There is no periprosthetic fracture. 2. Dorsal soft tissue swelling. Interventional Vascular Procedure 10/08/19 00:00 IMPRESSION: SUCCESSFUL PLACEMENT OF A 5 FR DUAL LUMEN 36 CM PICC IN THE LEFT BASILIC VEIN. PICC Line Insertion 10/08/19 00:00 IMPRESSION: SUCCESSFUL PLACEMENT OF A 5 FR DUAL LUMEN 36 CM PICC IN THE LEFT BASILIC VEIN. Chest X-Ray 10/11/19 06:00 IMPRESSION: 1. Interval increase in bilateral pleural effusions with bibasilar opacities which may be related to pneumonia or pulmonary edema. Renal Ultrasound 10/19/19 00:00 IMPRESSION: Unremarkable appearance to the kidneys bilaterally copyright 2010 [employer]- All Rights Reserved Assessment and Plan - Diagnosis (1) MRSA bacteremia Is this a current diagnosis for this admission?: Yes Plan: Complicated MRSA bacteremia. Evaluated by infectious diseases who recommended IV antibiotics until 11/07/2019. TTE showing no vegetations. Initially was on IV vancomycin which has been stopped due to DARIUS and accumulated levels. We will hold off on PICC line placement for now given DARIUS in order to maintain IV access if dialysis is eventually needed. We will place PICC line once renal function starts to show significant improvement. I discussed with infectious disease Dr. Way regarding antibiotic regimen and will place on daptomycin once vancomycin levels dropped to subtherapeutic range. Check CK in the morning (2) DARIUS (acute kidney injury) Is this a current diagnosis for this admission?: Yes Plan: Creatinine showing improvement. 3.8 today. Baseline of 0.6-0.8. Etiology of DARIUS is likely vancomycin toxicity or hypotension. Continue IV fluids. Monitor strict I's and O's. Renal ultrasound unremarkable Nephrology following (3) Primary adrenal insufficiency Is this a current diagnosis for this admission?: Yes Plan: Likely the cause of patient's hypotension. Cosyntropin test performed showed no improvement of cortisol levels after administration of cosyntropin indicating primary adrenal insufficiency. Does have history of unilateral adrenalectomy from adrenal malignancy. Stress dose hydrocortisone and Florinef. (4) Foot abscess, left Is this a current diagnosis for this admission?: Yes Plan: Status post I&D. Wound culture growing MRSA likely source of bacteremia. Wound dressing. (5) Multifocal pneumonia Is this a current diagnosis for this admission?: Yes Plan: Noted on chest CT and chest x-ray with high procalcitonin of 33 on admission. Has completed treatment of this with vancomycin and Levaquin. 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 Chemo will be done through PICC line until bacteremia has been fully treated. (7) Cardiomyopathy Qualifiers: Cardiomyopathy type: unspecified Qualified Code(s): I42.9 - Cardiomyopathy, unspecified Is this a current diagnosis for this admission?: Yes Plan: BNP 4000 on 10/06/2019 and 27,000 after IV fluids on 10/07/2019 TTE 10/07/2019 showing EF of 45%, grade 1/4 mild diastolic dysfunction with LV hypokinesis. RV and atria show only mild borderline dilation. However estimated pulmonary arterial systolic pressure was normal. TTE repeated 10/19/2019 showing normalized EF of 65 to 70%. Despite elevated BNP which often fluctuates and low EF, patient does not show clinical signs of acute congestive heart failure. - Time Time Spent with patient: 15-24 minutes
[2019-10-20] MEDS ORDERED: LEVOFLOXACIN 500 MG TABLET PO SCH (18:00)
--- NOTE | 2019-10-21 01:04 | PDOC PROGRESS REPORT ---
Subjective Progress Note for:: 10/20/19 Subjective:: Patient continues to feel fine. He does not have any new complaints. His 24 hours made about 775 mL of urine output. Reason For Visit: RESPIRATORY DISTRESS,PNEUMONIA,SEPSIS,LYMPHOMA Physical Exam Vital Signs: Temp Pulse Resp BP Pulse Ox 97.5 F 89 17 103/60 99 10/20/19 08:17 10/20/19 08:17 10/20/19 08:17 10/20/19 08:17 10/20/19 08:17 Intake & Output 10/19/19 10/20/19 10/21/19 06:59 06:59 06:59 Intake Total 3197 2350 Output Total 365 775 Balance 2832 1575 Weight 50.1 kg 48.7 kg Exam: General appearance: PRESENT: no acute distress, cooperative, well-developed, well-nourished Head exam: PRESENT: atraumatic, normocephalic Eye exam: PRESENT: conjunctiva pink, PERRLA. ABSENT: scleral icterus Neck exam: ABSENT: JVD Respiratory exam: PRESENT: Normal breath sounds. ABSENT: crackles, rales, rhon chi, unlabored, wheezes Cardiovascular exam: PRESENT: Regular rate rhythm -+S1, +S2. ABSENT: diastolic murmur, systolic murmur GI/Abdominal exam: PRESENT: normal bowel sounds, soft. ABSENT: guarding, mass, tenderness Extremities exam: ABSENT: No edema Neurological exam: PRESENT: alert, awake, oriented to person, place and time. Skin exam: PRESENT: dry, warm, Results Laboratory Results: 10/19/19 06:45 10/20/19 05:34 10/20/19 05:34 Sodium 140.4 Potassium 4.6 Chloride 111 H Carbon Dioxide 18 L Anion Gap 11 BUN 33 H Creatinine 3.50 H Est GFR ( Amer) 22 L Glucose 135 H Calcium 7.9 L Phosphorus 4.9 H 10/06/19 10/06/19 10/07/19 20:00 20:00 10:19 Troponin I < 0.012 NT-Pro-B Natriuret Pep 4000 H 61225 H 10/11/19 10/18/19 05:40 04:44 Troponin I NT-Pro-B Natriuret Pep 35058 H 3660 H Impressions: Chest/Abdomen CTA 10/06/19 21:18 IMPRESSION: Negative for pulmonary embolus, thoracic aortic aneurysm, or dissection. Extensive axillary and mediastinal adenopathy, also described previously. Small bilateral pleural effusions. Extensive patchy airspace opacities bilaterally predominantly having a groundglass appearance and likely reflecting pneumonia. Some of the opacities are somewhat nodular as well. While findings may reflect multifocal pneumonia, close follow-up following appropriate therapy is recommended. Metastatic disease is not excluded entirely. TECHNICAL DOCUMENTATION: Quality ID # 436: Final reports with documentation of one or more dose reduction techniques (e.g., Automated exposure control, adjustment of the mA and/or kV according to patient size, use of iterative reconstruction technique) copyright 2010 [employer]- All Rights Reserved Abdomen Ultrasound 10/07/19 00:00 IMPRESSION: 1. Limited visualization of the pancreas. 2. No abnormality of the liver, gallbladder and right kidney. 3. Right pleural effusion. Abdomen/Pelvis CT 10/07/19 00:00 IMPRESSION: No acute process is seen within the abdomen or pelvis. Extensive adenopathy is again seen at the bilateral inguinal, retroperitoneal, pelvic lymph nodes. Mild splenomegaly is also noted. Foot X-Ray 10/07/19 10:03 IMPRESSION: 1. Arthrodesis hardware that transfixes the 1st MTP joint. There is no periprosthetic fracture. 2. Dorsal soft tissue swelling. Interventional Vascular Procedure 10/08/19 00:00 IMPRESSION: SUCCESSFUL PLACEMENT OF A 5 FR DUAL LUMEN 36 CM PICC IN THE LEFT BASILIC VEIN. PICC Line Insertion 10/08/19 00:00 IMPRESSION: SUCCESSFUL PLACEMENT OF A 5 FR DUAL LUMEN 36 CM PICC IN THE LEFT BASILIC VEIN. Chest X-Ray 10/11/19 06:00 IMPRESSION: 1. Interval increase in bilateral pleural effusions with bibasilar opacities which may be related to pneumonia or pulmonary edema. Renal Ultrasound 10/19/19 00:00 IMPRESSION: Unremarkable appearance to the kidneys bilaterally copyright 2010 [employer]- All Rights Reserved Assessment & Plan - Diagnosis (1) DARIUS (acute kidney injury) Is this a current diagnosis for this admission?: Yes Plan: Secondary to vancomycin toxicity and hypotension. Currently with increased urine output and nonoliguric. Patient's kidney function is slightly improved today. There is no indication for any acute renal replacement therapy. Continue to monitor kidney function. Continue current management. (2) Hypotension Qualifiers: Hypotension type: unspecified hypotension type Qualified Code(s): I95.9 - Hypotension, unspecified Is this a current diagnosis for this admission?: Yes Plan: Due to adrenal insufficiency. Hydrocortisone and Florinef. (3) Adrenal insufficiency Is this a current diagnosis for this admission?: Yes Plan: Status post left adrenalectomy in 2009. (4) Metabolic acidosis Is this a current diagnosis for this admission?: Yes Plan: Currently unchanged. (5) Anemia of chronic disease Is this a current diagnosis for this admission?: Yes (6) MRSA bacteremia Is this a current diagnosis for this admission?: Yes Plan: Vancomycin is still on hold at this time. Vancomycin trough level today is 34.6. Infectious disease recommends switching to IV daptomycin once vancomycin level is decreased. (7) Hyponatremia Is this a current diagnosis for this admission?: Yes Plan: Resolved. (8) Cellulitis and abscess of foot Is this a current diagnosis for this admission?: Yes (9) Multifocal pneumonia Is this a current diagnosis for this admission?: Yes (10) Cardiomyopathy Qualifiers: Cardiomyopathy type: unspecified Qualified Code(s): I42.9 - Cardiomyopathy, unspecified Is this a current diagnosis for this admission?: Yes - Time Time with patient: 15-25 minutes
[2019-10-21] MEDS: NORMAL SALINE 1000 ML 1,000 ML IV PRN ×3 (03:00→21:33)
[2019-10-21] MEDS: HYDROCORTISONE SOD SUCCINATE INJ/PF 100 MG/2 ML SDV IV SCH ×3 (03:00→17:27)
[2019-10-21 05:45] LABS: VANCOMYCIN,TROUGH 24.9 ug/mL (5.0-20.0)
[2019-10-21 05:50] LABS: ANION GAP 9 (5-19); BLOOD UREA NITROGEN 35 mg/dL (7-20); CALCIUM 7.9 mg/dL (8.4-10.2); CARBON DIOXIDE 18 mmol/L (22-30); CHLORIDE 115 mmol/L (98-107); GLUCOSE 124 mg/dL (75-110); POTASSIUM 4.1 mmol/L (3.6-5.0)
[2019-10-21 05:54] LABS: CREATINE KINASE < 20 U/L (55-170)
[2019-10-21] MEDS: PANTOPRAZOLE SODIUM 40 MG TABLET.DR PO SCH (06:37)
[2019-10-21] MEDS: FLUDROCORTISONE ACETATE 0.1 MG TABLET PO SCH (09:51)
[2019-10-21] MEDS: ALLOPURINOL 300 MG TABLET PO SCH (09:51)
[2019-10-21] MEDS: ATENOLOL 50 MG TABLET PO SCH (09:52)
[2019-10-21] MEDS: ENOXAPARIN SODIUM INJ 40 MG/0.4 ML DISP.SYRIN SUBCUT SCH (10:02)
[2019-10-21] MEDS: NORMAL SALINE 10 ML SDV (SCHEDULED) IV SCH ×2 (10:03→21:33)
[2019-10-21] MEDS: NYSTATIN/DEXAMETH/DIPHEN SUSP 120 ML PO SCH ×4 (10:06→21:33)
--- NOTE | 2019-10-21 12:11 | PDOC PROGRESS REPORT ---
Subjective Progress Note for:: 10/21/19 Subjective:: Resting comfortably at the side of the bed eating lunch. Stating that he is allowed heel weightbearing and was cleared by physical therapy but is just waiting for a walking boot. Awaiting vancomycin levels to normalize before starting daptomycin. He is also due for chemotherapy in the next couple weeks. Reason For Visit: RESPIRATORY DISTRESS,PNEUMONIA,SEPSIS,LYMPHOMA Physical Exam Vital Signs: Temp Pulse Resp BP Pulse Ox 97.3 F 85 16 118/57 L 99 10/21/19 07:08 10/21/19 07:08 10/21/19 07:08 10/21/19 07:08 10/21/19 07:08 Intake & Output 10/20/19 10/21/19 10/22/19 06:59 06:59 06:59 Intake Total 2350 2655 Output Total 775 750 Balance 1575 1905 Weight 48.7 kg 48.9 kg General appearance: PRESENT: no acute distress, cooperative, well-developed Head exam: PRESENT: atraumatic, normocephalic Eye exam: PRESENT: conjunctiva pink. ABSENT: scleral icterus Ear exam: PRESENT: normal external ear exam. ABSENT: bleeding, drainage Respiratory exam: PRESENT: clear to auscultation ramila, symmetrical, unlabored. ABSENT: rales, rhonchi, tachypnea, wheezes Cardiovascular exam: PRESENT: RRR, +S1, +S2 GI/Abdominal exam: PRESENT: normal bowel sounds, soft. ABSENT: distended, tenderness Rectal exam: PRESENT: deferred Gentrourinary exam: PRESENT: indwelling catheter Extremities exam: ABSENT: pedal edema Musculoskeletal exam: PRESENT: normal inspection, other - Dressing on the left ankle Neurological exam: PRESENT: alert, awake, oriented to person, oriented to place, oriented to time, oriented to situation, CN II-XII grossly intact. ABSENT: altered, motor sensory deficit Psychiatric exam: PRESENT: appropriate affect. ABSENT: agitated, anxious Focused psych exam: ABSENT: delusional, restlessness Skin exam: PRESENT: dry, warm, other - Multiple small areas of no pigmentation scattered throughout the torso. ABSENT: rash Results Laboratory Results: 10/19/19 06:45 10/21/19 05:06 10/21/19 05:06 Sodium 142.4 Potassium 4.1 Chloride 115 H Carbon Dioxide 18 L Anion Gap 9 BUN 35 H Creatinine 2.95 H Est GFR ( Amer) 27 L Glucose 124 H Calcium 7.9 L 10/16/19 08:40 Blood Blood Culture - Final NO GROWTH IN 5 DAYS 10/06/19 10/06/19 10/07/19 20:00 20:00 10:19 Creatine Kinase Troponin I < 0.012 NT-Pro-B Natriuret Pep 4000 H 78744 H 10/11/19 10/18/19 10/21/19 05:40 04:44 05:06 Creatine Kinase < 20 L Troponin I NT-Pro-B Natriuret Pep 98633 H 3660 H Impressions: Chest/Abdomen CTA 10/06/19 21:18 IMPRESSION: Negative for pulmonary embolus, thoracic aortic aneurysm, or dissection. Extensive axillary and mediastinal adenopathy, also described previously. Small bilateral pleural effusions. Extensive patchy airspace opacities bilaterally predominantly having a groundglass appearance and likely reflecting pneumonia. Some of the opacities are somewhat nodular as well. While findings may reflect multifocal pneumonia, close follow-up following appropriate therapy is recommended. Metastatic disease is not excluded entirely. TECHNICAL DOCUMENTATION: Quality ID # 436: Final reports with documentation of one or more dose reduction techniques (e.g., Automated exposure control, adjustment of the mA and/or kV according to patient size, use of iterative reconstruction technique) copyright 2011 [employer]- All Rights Reserved Abdomen Ultrasound 10/07/19 00:00 IMPRESSION: 1. Limited visualization of the pancreas. 2. No abnormality of the liver, gallbladder and right kidney. 3. Right pleural effusion. Abdomen/Pelvis CT 10/07/19 00:00 IMPRESSION: No acute process is seen within the abdomen or pelvis. Extensive adenopathy is again seen at the bilateral inguinal, retroperitoneal, pelvic lymph nodes. Mild splenomegaly is also noted. Foot X-Ray 10/07/19 10:03 IMPRESSION: 1. Arthrodesis hardware that transfixes the 1st MTP joint. There is no periprosthetic fracture. 2. Dorsal soft tissue swelling. Interventional Vascular Procedure 10/08/19 00:00 IMPRESSION: SUCCESSFUL PLACEMENT OF A 5 FR DUAL LUMEN 36 CM PICC IN THE LEFT BASILIC VEIN. PICC Line Insertion 10/08/19 00:00 IMPRESSION: SUCCESSFUL PLACEMENT OF A 5 FR DUAL LUMEN 36 CM PICC IN THE LEFT BASILIC VEIN. Chest X-Ray 10/11/19 06:00 IMPRESSION: 1. Interval increase in bilateral pleural effusions with bibasilar opacities which may be related to pneumonia or pulmonary edema. Renal Ultrasound 10/19/19 00:00 IMPRESSION: Unremarkable appearance to the kidneys bilaterally copyright 2011 [employer] [facility]- All Rights Reserved Assessment and Plan - Diagnosis (1) MRSA bacteremia Is this a current diagnosis for this admission?: Yes Plan: Complicated MRSA bacteremia. Evaluated by infectious diseases who recommended IV antibiotics until 11/07/2019. TTE showing no vegetations. Initially was on IV vancomycin which has been stopped due to DARIUS and accumulated levels. We will hold off on PICC line placement for now given DARIUS in order to maintain IV access if dialysis is eventually needed. We will place PICC line once renal function starts to show significant improvement. I discussed with infectious disease Dr. Way regarding antibiotic regimen and will place on daptomycin once vancomycin levels dropped to subtherapeutic range. Check CK in the morning 10/21/2019 Vancomycin discontinued. The plan is to start daptomycin when vancomycin level is no longer supratherapeutic. (2) DARIUS (acute kidney injury) Is this a current diagnosis for this admission?: Yes Plan: Creatinine showing improvement. 3.8 today. Baseline of 0.6-0.8. Etiology of DARIUS is likely vancomycin toxicity or hypotension. Continue IV fluids. Monitor strict I's and O's. Renal ultrasound unremarkable Nephrology following 10/21/2019 Creatinine is down to 2.95. We will continue current treatment plan. Kidney injury should continue to improve now that the patient is off of vancomycin. (3) Primary adrenal insufficiency Is this a current diagnosis for this admission?: Yes Plan: Likely the cause of patient's hypotension. Cosyntropin test performed showed no improvement of cortisol levels after administration of cosyntropin indicating primary adrenal insufficiency. Does have history of unilateral adrenalectomy from adrenal malignancy. Stress dose hydrocortisone and Florinef. 10/21/2019 The patient is status post left adrenalectomy. Consider changing to oral hydrocortisone. (4) Foot abscess, left Is this a current diagnosis for this admission?: Yes Plan: Status post I&D. Wound culture growing MRSA likely source of bacteremia. Wound dressing. 10/21/2019 Continue wound care. This is the source of the bacteremia. (5) Multifocal pneumonia Is this a current diagnosis for this admission?: Yes Plan: Noted on chest CT and chest x-ray with high procalcitonin of 33 on admission. Has completed treatment of this with vancomycin and Levaquin. 10/21/2019 Completed dual antibiotic therapy. 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 Chemo will be done through PICC line until bacteremia has been fully treated. 10/21/2019 The oncology service is going to start chemotherapy. We are holding placing a PICC line. The patient has approximately 2 weeks left of therapy. After reviewing all of the options it might be most prudent to complete his therapy as an outpatient with oral Zyvox. He has Medicaid approval and this will be a small co-pay. We can then repeat blood cultures. With negative blood cultures it would be safer to place a Port-A-Cath. It would minimize the risk of Port-A-Cath infection from the current bacteremia. I will review this with oncology. Infectious disease recommendations have been noted. (7) Abdominal pain Qualifiers: Abdominal location: right upper quadrant Qualified Code(s): R10.11 - Right upper quadrant pain Is this a current diagnosis for this admission?: Yes Plan: Impression: Multi-organ positive for MRSA including lungs, bloodstream, and left foot consistent with sepsis, metabolic acidosis and acute renal insufficiency on the backdrop of untreated, T-cell lymphoma: Do not believe interval cholecystectomy indicated at this time. Recommendations: 1. Continue local wound care of the left foot this was reviewed with nursing staff 2. Continue multidrug antibiotic therapy 3. I spoke with Dr. Pimentel, [facility]. 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 This is patient's first episode with multiorgan system challenge, and sepsis. 4. I discussed the patient's management with ICU team. We will maintain current level of support, and continue to follow patient with you. 10/21/2019 Likely a combination of his adenopathy and previous surgeries as well as recent sepsis. Continue with supportive care and symptom management. (8) Tachypnea Is this a current diagnosis for this admission?: Yes Plan: Resolved (9) Tachycardia Is this a current diagnosis for this admission?: Yes Plan: Resolved (10) Cardiomyopathy Qualifiers: Cardiomyopathy type: unspecified Qualified Code(s): I42.9 - Cardiomyopathy, unspecified Is this a current diagnosis for this admission?: Yes Plan: BNP 4000 on 10/06/2019 and 27,000 after IV fluids on 10/07/2019 TTE 10/07/2019 showing EF of 45%, grade 1/4 mild diastolic dysfunction with LV hypokinesis. RV and atria show only mild borderline dilation. However estimated pulmonary arterial systolic pressure was normal. TTE repeated 10/19/2019 showing normalized EF of 65 to 70%. Despite elevated BNP which often fluctuates and low EF, patient does not show clinical signs of acute congestive heart failure. - Time Time Spent with patient: 15-24 minutes Medications reviewed and adjusted accordingly: Yes
--- NOTE | 2019-10-21 23:05 | PDOC PROGRESS REPORT ---
Subjective Progress Note for:: 10/21/19 Subjective:: Patient continues to do well. He does not have any new complaints. His urine output remains to be around 750 mL. His kidney function continues to slowly improve every day. Reason For Visit: RESPIRATORY DISTRESS,PNEUMONIA,SEPSIS,LYMPHOMA Physical Exam Vital Signs: Temp Pulse Resp BP Pulse Ox 97.3 F 85 16 118/57 L 99 10/21/19 07:08 10/21/19 07:08 10/21/19 07:08 10/21/19 07:08 10/21/19 07:08 Intake & Output 10/20/19 10/21/19 10/22/19 06:59 06:59 06:59 Intake Total 2350 2655 Output Total 775 750 Balance 1575 1905 Weight 48.7 kg 48.9 kg Exam: General appearance: PRESENT: no acute distress, cooperative, well-developed, well-nourished Head exam: PRESENT: atraumatic, normocephalic Eye exam: PRESENT: conjunctiva pink, PERRLA. ABSENT: scleral icterus Neck exam: ABSENT: JVD Respiratory exam: PRESENT: Normal breath sounds. ABSENT: crackles, rales, rhonchi, unlabored, wheezes Cardiovascular exam: PRESENT: Regular rate rhythm -+S1, +S2. ABSENT: diastolic murmur, systolic murmur GI/Abdominal exam: PRESENT: normal bowel sounds, soft. ABSENT: guarding, mass, tenderness Extremities exam: ABSENT: No edema, left foot with dressing. Neurological exam: PRESENT: alert, awake, oriented to person, place and time. Skin exam: PRESENT: dry, warm, Results Laboratory Results: 10/19/19 06:45 10/21/19 05:06 10/21/19 05:06 Sodium 142.4 Potassium 4.1 Chloride 115 H Carbon Dioxide 18 L Anion Gap 9 BUN 35 H Creatinine 2.95 H Est GFR ( Amer) 27 L Glucose 124 H Calcium 7.9 L 10/16/19 08:40 Blood Blood Culture - Final NO GROWTH IN 5 DAYS 10/06/19 10/06/19 10/07/19 20:00 20:00 10:19 Creatine Kinase Troponin I < 0.012 NT-Pro-B Natriuret Pep 4000 H 40851 H 10/11/19 10/18/19 10/21/19 05:40 04:44 05:06 Creatine Kinase < 20 L Troponin I NT-Pro-B Natriuret Pep 23178 H 3660 H Impressions: Chest/Abdomen CTA 10/06/19 21:18 IMPRESSION: Negative for pulmonary embolus, thoracic aortic aneurysm, or dissection. Extensive axillary and mediastinal adenopathy, also described previously. Small bilateral pleural effusions. Extensive patchy airspace opacities bilaterally predominantly having a groundglass appearance and likely reflecting pneumonia. Some of the opacities are somewhat nodular as well. While findings may reflect multifocal pneumonia, close follow-up following appropriate therapy is recommended. Metastatic disease is not excluded entirely. TECHNICAL DOCUMENTATION: Quality ID # 436: Final reports with documentation of one or more dose reduction techniques (e.g., Automated exposure control, adjustment of the mA and/or kV according to patient size, use of iterative reconstruction technique) copyright 2010 [employer]- All Rights Reserved Abdomen Ultrasound 10/07/19 00:00 IMPRESSION: 1. Limited visualization of the pancreas. 2. No abnormality of the liver, gallbladder and right kidney. 3. Right pleural effusion. Abdomen/Pelvis CT 10/07/19 00:00 IMPRESSION: No acute process is seen within the abdomen or pelvis. Extensive adenopathy is again seen at the bilateral inguinal, retroperitoneal, pelvic lymph nodes. Mild splenomegaly is also noted. Foot X-Ray 10/07/19 10:03 IMPRESSION: 1. Arthrodesis hardware that transfixes the 1st MTP joint. There is no periprosthetic fracture. 2. Dorsal soft tissue swelling. Interventional Vascular Procedure 10/08/19 00:00 IMPRESSION: SUCCESSFUL PLACEMENT OF A 5 FR DUAL LUMEN 36 CM PICC IN THE LEFT BASILIC VEIN. PICC Line Insertion 10/08/19 00:00 IMPRESSION: SUCCESSFUL PLACEMENT OF A 5 FR DUAL LUMEN 36 CM PICC IN THE LEFT BASILIC VEIN. Chest X-Ray 10/11/19 06:00 IMPRESSION: 1. Interval increase in bilateral pleural effusions with bibasilar opacities which may be related to pneumonia or pulmonary edema. Renal Ultrasound 10/19/19 00:00 IMPRESSION: Unremarkable appearance to the kidneys bilaterally copyright 2010 [employer]- All Rights Reserved Assessment & Plan - Diagnosis (1) DARIUS (acute kidney injury) Is this a current diagnosis for this admission?: Yes Plan: Secondary to vancomycin toxicity and hypotension. Nonoliguric. Kidney function continues to improve. There is no indication for any acute renal replacement therapy. Continue to monitor kidney function. Continue current management. (2) Hypotension Qualifiers: Hypotension type: unspecified hypotension type Qualified Code(s): I95.9 - Hypotension, unspecified Is this a current diagnosis for this admission?: Yes Plan: Due to adrenal insufficiency. On hydrocortisone and Florinef. (3) Adrenal insufficiency Is this a current diagnosis for this admission?: Yes Plan: Status post left adrenalectomy in 2009. (4) Metabolic acidosis Is this a current diagnosis for this admission?: Yes Plan: Currently unchanged. (5) Anemia of chronic disease Is this a current diagnosis for this admission?: Yes (6) MRSA bacteremia Is this a current diagnosis for this admission?: Yes Plan: Vancomycin is still on hold at this time. Vancomycin trough level today is 24.9. Infectious disease recommends switching to IV daptomycin once vancomycin level is decreased. (7) Hyponatremia Is this a current diagnosis for this admission?: Yes Plan: Resolved. 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 Yoo plans to start chemotherapy in the next 2 to 3 weeks after treatment of his infection. - Time Time with patient: 15-25 minutes
[2019-10-22] MEDS: HYDROCORTISONE SOD SUCCINATE INJ/PF 100 MG/2 ML SDV IV SCH ×3 (02:25→17:32)
[2019-10-22 06:35] LABS: ANION GAP 12 (5-19); BLOOD UREA NITROGEN 40 mg/dL (7-20); CARBON DIOXIDE 15 mmol/L (22-30); CHLORIDE 117 mmol/L (98-107); GLUCOSE 101 mg/dL (75-110); POTASSIUM 3.7 mmol/L (3.6-5.0)
[2019-10-22 06:38] LABS: VANCOMYCIN,TROUGH 18.7 ug/mL (5.0-20.0)
[2019-10-22] MEDS: PANTOPRAZOLE SODIUM 40 MG TABLET.DR PO SCH (07:08)
[2019-10-22] MEDS: ATENOLOL 50 MG TABLET PO SCH (10:05)
[2019-10-22] MEDS: NYSTATIN/DEXAMETH/DIPHEN SUSP 120 ML PO SCH ×4 (10:05→22:05)
[2019-10-22] MEDS: ALLOPURINOL 300 MG TABLET PO SCH (10:06)
[2019-10-22] MEDS: FLUDROCORTISONE ACETATE 0.1 MG TABLET PO SCH (10:06)
[2019-10-22] MEDS: NORMAL SALINE 1000 ML 1,000 ML IV PRN (10:07)
[2019-10-22] MEDS: NORMAL SALINE 10 ML SDV (SCHEDULED) IV SCH ×2 (10:08→22:05)
[2019-10-22] MEDS: ENOXAPARIN SODIUM INJ 40 MG/0.4 ML DISP.SYRIN SUBCUT SCH (10:09)
[2019-10-22] MEDS: DAPTOMYCIN IV SCH ×2 (10:15→10:58)
[2019-10-22] MEDS: NORMAL SALINE IV SCH ×2 (10:15→10:58)
[2019-10-22] MEDS: IPRATROPIUM/ALBUTEROL 0.5-2.5 MG/3 ML AMPUL NEB PRN (11:15)
--- NOTE | 2019-10-22 19:06 | Progress Note ---
Provider Note Provider Note: [facility]ious [facility] Follow Up Chart reviewed. Patient is a 54-year-old man who was recently diagnosed with Lymphoma, also a hyperactive adrenal adenoma s/p adrenalectomy currently on steroids who was admitted earlier this month due to shortness of breath, cough and and chills. On admission he was found septic from MRSA bacteremia, multifocal pneumonia and left foot abscess. Patient's blood cultures on 10/05 and 10/07 were positive for MRSA. Blood culture from 10/09 ad 10/15 negative. TTE was negative for vegetations. He had a repeat CXR on 10/10 that demonstrated increased opacities and pleural effusion, but clinically patient was doing better. Leukocytosis resolved. He has been followed by oncology for lymphoma as well. He had an acute kidney injury with vancomycin, switched to daptomycin to complete 4 weeks of therapy. Vitals: Temp Pulse Resp BP Pulse Ox 97.7 F 85 17 129/59 H 100 10/22/19 15:48 10/22/19 15:48 10/22/19 15:48 10/22/19 15:48 10/22/19 15:48 Intake & Output 10/21/19 10/22/19 10/23/19 06:59 06:59 06:59 Intake Total 2655 2927 1690 Output Total 750 725 600 Balance 1905 2202 1090 Weight 48.9 kg 48.9 kg 61.7 kg Weight/Height Weight 61.7 kg Height 5 ft Laboratories 10/19/19 06:45 10/22/19 05:52 MCV 79 fl (80-97) L 10/19/19 06:45 MCH 26.7 pg (27.0-33.4) L 10/19/19 06:45 MCHC 33.9 g/dL (32.0-36.0) 10/19/19 06:45 RDW 16.8 % (11.5-14.0) H 10/19/19 06:45 Seg Neutrophils % 78.9 % (42-78) H 10/19/19 06:45 Carbonic Acid 1.18 mmol/L (1.05-1.35) 10/07/19 01:45 HCO3/H2CO3 Ratio 20:1 10/07/19 01:45 ABG pH 7.40 (7.35-7.45) 10/07/19 01:45 ABG pCO2 39.3 mmHg (35-45) 10/07/19 01:45 ABG pO2 64.9 mmHg (80-100) L 10/07/19 01:45 ABG HCO3 23.9 mmol/L (20-24) 10/07/19 01:45 ABG O2 Saturation 92.8 % (94-98) L 10/07/19 01:45 ABG Base Excess -0.7 mmol/L 10/07/19 01:45 FiO2 4L 10/07/19 01:45 Chloride 117 mmol/L (98-107) H 10/22/19 05:52 Carbon Dioxide 15 mmol/L (22-30) L 10/22/19 05:52 Anion Gap 12 (5-19) 10/22/19 05:52 Est GFR ( Amer) 27 (>60) L 10/22/19 05:52 Glucose 101 mg/dL (75-110) 10/22/19 05:52 Lactic Acid 2.1 mmol/L (0.7-2.1) 10/08/19 01:38 Calcium 8.0 mg/dL (8.4-10.2) L 10/22/19 05:52 Ionized Calcium Tanner 1.12 mmol/L (1.14-1.30) L 10/09/19 04:45 Magnesium 1.7 mg/dL (1.6-2.3) 10/14/19 06:11 Phosphorus 4.9 mg/dL (2.5-4.5) H 10/20/19 05:34 Total Bilirubin 0.3 mg/dL (0.2-1.3) 10/19/19 06:45 AST 18 U/L (17-59) 10/19/19 06:45 Alkaline Phosphatase 93 U/L (38-126) 10/19/19 06:45 C-Reactive Protein 260.4 mg/L (<10.0) H 10/07/19 10:19 Total Protein 5.8 g/dL (6.3-8.2) L 10/19/19 06:45 Albumin 2.7 g/dL (3.5-5.0) L 10/19/19 06:45 Lipase 26.4 U/L (23-300) 10/07/19 04:16 Urine Color JOSE ENRIQUE 10/18/19 11:55 Urine Appearance CLOUDY 10/18/19 11:55 Urine pH 5.0 (5.0-9.0) 10/18/19 11:55 Ur Specific [place] 1.015 10/18/19 11:55 Urine Protein 30 mg/dL (NEGATIVE) H 10/18/19 11:55 Urine Glucose (UA) NEGATIVE mg/dL (NEGATIVE) 10/18/19 11:55 Urine Ketones NEGATIVE mg/dL (NEGATIVE) 10/18/19 11:55 Urine Blood NEGATIVE (NEGATIVE) 10/18/19 11:55 Urine Nitrite NEGATIVE (NEGATIVE) 10/18/19 11:55 Ur Leukocyte Esterase NEGATIVE (NEGATIVE) 10/18/19 11:55 Urine WBC (Auto) 0 /HPF 10/18/19 11:55 Urine RBC (Auto) 1 /HPF 10/07/19 07:35 Urine Osmolality 380 mOsm/kg (300-900) 10/07/19 23:20 10/06/19 10/06/19 10/07/19 20:00 20:00 10:19 Creatine Kinase Troponin I < 0.012 NT-Pro-B Natriuret Pep 4000 H 06790 H 10/11/19 10/18/19 10/21/19 05:40 04:44 05:06 Creatine Kinase < 20 L Troponin I NT-Pro-B Natriuret Pep 57616 H 3660 H Microbiology Blood cultures: 3/3 MRSA 3/5 MRSA 3/7 Negative 3/13 Negative Sputum Culture 3/6 GPC pairs. Dianne spp Radiology: Chest/Abdomen CTA 10/06/19 21:18 IMPRESSION: Negative for pulmonary embolus, thoracic aortic aneurysm, or dissection. Extensive axillary and mediastinal adenopathy, also described previously. Small bilateral pleural effusions. Extensive patchy airspace opacities bilaterally predominantly having a groundglass appearance and likely reflecting pneumonia. Some of the opacities are somewhat nodular as well. While findings may reflect multifocal pneumonia, close follow-up following appropriate therapy is recommended. Metastatic disease is not excluded entirely. Abdomen Ultrasound 10/07/19 00:00 IMPRESSION: 1. Limited visualization of the pancreas. 2. No abnormality of the liver, gallbladder and right kidney. 3. Right pleural effusion. Abdomen/Pelvis CT 10/07/19 00:00 IMPRESSION: No acute process is seen within the abdomen or pelvis. Extensive adenopathy is again seen at the bilateral inguinal, retroperitoneal, pelvic lymph nodes. Mild splenomegaly is also noted. Foot X-Ray 10/07/19 10:03 IMPRESSION: 1. Arthrodesis hardware that transfixes the 1st MTP joint. There is no periprosthetic fracture. 2. Dorsal soft tissue swelling. Chest X-Ray 10/11/19 06:00 IMPRESSION: 1. Interval increase in bilateral pleural effusions with bibasilar opacities which may be related to pneumonia or pulmonary edema. Renal Ultrasound 10/19/19 00:00 IMPRESSION: Unremarkable appearance to the kidneys bilaterally Assessment and Recommendations: Patient with MRSA bacteremia from left foot abscess, multifocal pneumonia (resolved) in the setting of immunosuppression due to lymphoma. Patient has cleared the bacteremia on 10/09. TTE was negative for vegetations. No stigmata of endocarditis per notes. He had source control in the left foot. PICC line has been removed and new cultures drawn on 10/15. He developed DARIUS with vancomycin with significantly elevated trough. Daptomycin is the alternative to complete therapy. Pneumonia already resolved, he completed almost 2 weeks of treatment with vancomycin. Daptomycin might be challenging for patient to complete therapy, primary team requesting oral alternative. There is limited data about the use of linezolid for complicated MRSA bacteremia in the setting of immunosuppression. Even though it has good bioavailability, it is not bactericidal, therefore there is risk of relapse and recurrence of bacteremia if it seeded other areas. If a decision is made to use linezolid, it should be 600 mg po bid, should avoid any SSRIs and should monitor CBC weekly. EOT remains the same. Please call back if any questions. Jaja Way MD [facility] [place] [phone]
--- NOTE | 2019-10-22 19:27 | PDOC PROGRESS REPORT ---
Subjective Progress Note for:: 10/22/19 Subjective:: Patient is extremely happy today. He was approved for Medicaid. He continues to feel better. No acute complaints today. Reason For Visit: RESPIRATORY DISTRESS,PNEUMONIA,SEPSIS,LYMPHOMA Physical Exam Vital Signs: Temp Pulse Resp BP Pulse Ox 97.7 F 85 17 129/59 H 100 10/22/19 15:48 10/22/19 15:48 10/22/19 15:48 10/22/19 15:48 10/22/19 15:48 Intake & Output 10/21/19 10/22/19 10/23/19 06:59 06:59 06:59 Intake Total 2655 2927 1690 Output Total 750 725 600 Balance 1905 2202 1090 Weight 48.9 kg 48.9 kg 61.7 kg General appearance: PRESENT: no acute distress, cooperative, well-developed, well-nourished, other - Sitting in the chair eating lunch Head exam: PRESENT: atraumatic, normocephalic Eye exam: PRESENT: conjunctiva pink. ABSENT: scleral icterus Ear exam: PRESENT: normal external ear exam. ABSENT: bleeding, drainage Respiratory exam: PRESENT: clear to auscultation ramila, symmetrical, unlabored. ABSENT: rales, rhonchi, tachypnea, wheezes Cardiovascular exam: PRESENT: RRR, +S1, +S2. ABSENT: diastolic murmur, systolic murmur GI/Abdominal exam: PRESENT: normal bowel sounds, soft. ABSENT: distended, guarding, tenderness Rectal exam: PRESENT: deferred Gentrourinary exam: ABSENT: indwelling catheter Extremities exam: PRESENT: other - Dressing on left foot. ABSENT: pedal edema Musculoskeletal exam: PRESENT: ambulatory, normal inspection. ABSENT: deformity Neurological exam: PRESENT: alert, awake, oriented to person, oriented to place, oriented to time, oriented to situation, CN II-XII grossly intact. ABSENT: a ltered, motor sensory deficit Psychiatric exam: PRESENT: appropriate affect, normal mood. ABSENT: agitated, anxious Focused psych exam: ABSENT: delusional, paranoid, restlessness Results Laboratory Results: 10/19/19 06:45 10/22/19 05:52 10/22/19 05:52 Sodium 143.8 Potassium 3.7 Chloride 117 H Carbon Dioxide 15 L Anion Gap 12 BUN 40 H Creatinine 2.92 H Est GFR ( Amer) 27 L Glucose 101 Calcium 8.0 L 10/06/19 10/06/19 10/07/19 20:00 20:00 10:19 Creatine Kinase Troponin I < 0.012 NT-Pro-B Natriuret Pep 4000 H 16794 H 10/11/19 10/18/19 10/21/19 05:40 04:44 05:06 Creatine Kinase < 20 L Troponin I NT-Pro-B Natriuret Pep 15419 H 3660 H Impressions: Chest/Abdomen CTA 10/06/19 21:18 IMPRESSION: Negative for pulmonary embolus, thoracic aortic aneurysm, or dissection. Extensive axillary and mediastinal adenopathy, also described previously. Small bilateral pleural effusions. Extensive patchy airspace opacities bilaterally predominantly having a groundglass appearance and likely reflecting pneumonia. Some of the opacities are somewhat nodular as well. While findings may reflect multifocal pneumonia, close follow-up following appropriate therapy is recommended. Metastatic disease is not excluded entirely. TECHNICAL DOCUMENTATION: Quality ID # 436: Final reports with documentation of one or more dose reduction techniques (e.g., Automated exposure control, adjustment of the mA and/or kV according to patient size, use of iterative reconstruction technique) copyright 2011 [employer]- All Rights Reserved Abdomen Ultrasound 10/07/19 00:00 IMPRESSION: 1. Limited visualization of the pancreas. 2. No abnormality of the liver, gallbladder and right kidney. 3. Right pleural effusion. Abdomen/Pelvis CT 10/07/19 00:00 IMPRESSION: No acute process is seen within the abdomen or pelvis. Extensive adenopathy is again seen at the bilateral inguinal, retroperitoneal, pelvic lymph nodes. Mild splenomegaly is also noted. Foot X-Ray 10/07/19 10:03 IMPRESSION: 1. Arthrodesis hardware that transfixes the 1st MTP joint. There is no periprosthetic fracture. 2. Dorsal soft tissue swelling. Interventional Vascular Procedure 10/08/19 00:00 IMPRESSION: SUCCESSFUL PLACEMENT OF A 5 FR DUAL LUMEN 36 CM PICC IN THE LEFT BASILIC VEIN. PICC Line Insertion 10/08/19 00:00 IMPRESSION: SUCCESSFUL PLACEMENT OF A 5 FR DUAL LUMEN 36 CM PICC IN THE LEFT BASILIC VEIN. Chest X-Ray 10/11/19 06:00 IMPRESSION: 1. Interval increase in bilateral pleural effusions with bibasilar opacities which may be related to pneumonia or pulmonary edema. Renal Ultrasound 10/19/19 00:00 IMPRESSION: Unremarkable appearance to the kidneys bilaterally copyright 2011 [employer]- All Rights Reserved Assessment and Plan - Diagnosis (1) MRSA bacteremia Is this a current diagnosis for this admission?: Yes Plan: Complicated MRSA bacteremia. Evaluated by infectious diseases who recommended IV antibiotics until 11/07/2019. TTE showing no vegetations. Initially was on IV vancomycin which has been stopped due to DARIUS and accumulated levels. We will hold off on PICC line placement for now given DARIUS in order to maintain IV access if dialysis is eventually needed. We will place PICC line once renal function starts to show significant improvement. I discussed with infectious disease Dr. Way regarding antibiotic regimen and will place on daptomycin once vancomycin levels dropped to subtherapeutic range. Check CK in the morning 10/21/2019 Vancomycin discontinued. The plan is to start daptomycin when vancomycin level is no longer supratherapeutic. 10/22/[address] Way's note. Will likely discharge on Moni nasal lid with same end of treatment date. Will discuss with oncology potential timing of Port-A-Cath placement. It would be prudent for the patient to have repeat blood cultures post linezolid treatment. (2) DARIUS (acute kidney injury) Is this a current diagnosis for this admission?: Yes Plan: Creatinine showing improvement. 3.8 today. Baseline of 0.6-0.8. Etiology of DARIUS is likely vancomycin toxicity or hypotension. Continue IV fluids. Monitor strict I's and O's. Renal ultrasound unremarkable Nephrology following 10/21/2019 Creatinine is down to 2.95. We will continue current treatment plan. Kidney injury should continue to improve now that the patient is off of vancomycin. 10/22/2019 Creatinine is improved again today. We will continue to monitor. (3) Primary adrenal insufficiency Is this a current diagnosis for this admission?: Yes Plan: Likely the cause of patient's hypotension. Cosyntropin test performed showed no improvement of cortisol levels after administration of cosyntropin indicating primary adrenal insufficiency. Does have history of unilateral adrenalectomy from adrenal malignancy. Stress dose hydrocortisone and Florinef. 10/21/2019 The patient is status post left adrenalectomy. Consider changing to oral hydrocortisone. 10/22/2019 We will change hydrocortisone to oral dosing. Will start at 40 mg in the mo rning and 20 mg in the evening. We will try to work to a baseline dose for chronic use. (4) Foot abscess, left Is this a current diagnosis for this admission?: Yes Plan: Status post I&D. Wound culture growing MRSA likely source of bacteremia. Wound dressing. 10/21/2019 Continue wound care. This is the source of the bacteremia. 10/22/2019 Continue wound care. Antibiotics as above. (5) Multifocal pneumonia Is this a current diagnosis for this admission?: Yes Plan: Noted on chest CT and chest x-ray with high procalcitonin of 33 on admission. Has completed treatment of this with vancomycin and Levaquin. 10/21/2019 Completed dual antibiotic therapy. 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 Chemo will be done through PICC line until bacteremia has been fully treated. 10/21/2019 The oncology service is going to start chemotherapy. We are holding placing a PICC line. The patient has approximately 2 weeks left of therapy. After reviewing all of the options it might be most prudent to complete his therapy as an outpatient with oral Zyvox. He has Medicaid approval and this will be a small co-pay. We can then repeat blood cultures. With negative blood cultures it would be safer to place a Port-A-Cath. It would minimize the risk of Port-A-Cath infection from the current bacteremia. I will review this with oncology. Infectious disease recommendations have been noted. 10/22/2019 In light of current coronavirus epidemic, it might be most prudent to get the patient out of the hospital as soon as possible. (7) Abdominal pain Qualifiers: Abdominal location: right upper quadrant Qualified Code(s): R10.11 - Right upper quadrant pain Is this a current diagnosis for this admission?: Yes Plan: Impression: Multi-organ positive for MRSA including lungs, bloodstream, and left foot consistent with sepsis, metabolic acidosis and acute renal insufficiency on the backdrop of untreated, T-cell lymphoma: Do not believe interval cholecystectomy indicated at this time. Recommendations: 1. Continue local wound care of the left foot this was reviewed with nursing staff 2. Continue multidrug antibiotic therapy 3. I spoke with Dr. Pimentel, [facility]. 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 This is patient's first episode with multiorgan system challenge, and sepsis. 4. I discussed the patient's management with ICU team. We will maintain current level of support, and continue to follow patient with you. 10/21/2019 Likely a combination of his adenopathy and previous surgeries as well as recent sepsis. Continue with supportive care and symptom management. 10/22/2019 Improved. Continue supportive care. (8) Tachypnea Is this a current diagnosis for this admission?: Yes Plan: Resolved (9) Tachycardia Is this a current diagnosis for this admission?: Yes Plan: Resolved (10) Cardiomyopathy Qualifiers: Cardiomyopathy type: unspecified Qualified Code(s): I42.9 - Cardiomyopathy, unspecified Is this a current diagnosis for this admission?: Yes Plan: BNP 4000 on 10/06/2019 and 27,000 after IV fluids on 10/07/2019 TTE 10/07/2019 showing EF of 45%, grade 1/4 mild diastolic dysfunction with LV hypokinesis. RV and atria show only mild borderline dilation. However estimated pulmonary arterial systolic pressure was normal. TTE repeated 10/19/2019 showing normalized EF of 65 to 70%. Despite elevated BNP which often fluctuates and low EF, patient does not show clinical signs of acute congestive heart failure. - Time Time Spent with patient: 15-24 minutes Medications reviewed and adjusted accordingly: Yes Anticipated discharge: Home
[2019-10-22] MEDS ORDERED: HYDROCORTISONE 10 MG TABLET PO SCH (22:00)
[2019-10-22] MEDS: BENZOCAINE/MENTHOL SORE THROAT LOZENGE BUCCAL PRN (22:05)
[2019-10-22] MEDS ORDERED: NORMAL SALINE 1000 ML 1,000 ML IV PRN (23:34)
--- NOTE | 2019-10-22 23:41 | PDOC PROGRESS REPORT ---
Subjective Progress Note for:: 10/22/19 Subjective:: Patient continues to do well and feels fine. He really does not have any. He made about 775 mL of urine output for the past 24 hours. Reason For Visit: RESPIRATORY DISTRESS,PNEUMONIA,SEPSIS,LYMPHOMA Physical Exam Vital Signs: Temp Pulse Resp BP Pulse Ox 97.5 F 87 16 138/69 H 100 10/22/19 08:10 10/22/19 08:10 10/22/19 08:10 10/22/19 08:10 10/22/19 08:10 Intake & Output 10/21/19 10/22/19 10/23/19 06:59 06:59 06:59 Intake Total 2655 2927 1000 Output Total 750 725 Balance 1905 2202 1000 Weight 48.9 kg 48.9 kg 61.7 kg Exam: General appearance: PRESENT: no acute distress, cooperative, well-developed, well-nourished Head exam: PRESENT: atraumatic, normocephalic Eye exam: PRESENT: conjunctiva pink, PERRLA. ABSENT: scleral icterus Neck exam: ABSENT: JVD Respiratory exam: PRESENT: Normal breath sounds. ABSENT: crackles, rales, rhonchi, unlabored, wheezes Cardiovascular exam: PRESENT: Regular rate rhythm -+S1, +S2. ABSENT: diastolic murmur, systolic murmur GI/Abdominal exam: PRESENT: normal bowel sounds, soft. ABSENT: guarding, mass, tenderness Extremities exam: Grade 1 bilateral pitting edema Neurological exam: PRESENT: alert, awake, oriented to person, place and time. Skin exam: PRESENT: dry, warm, Results Laboratory Results: 10/19/19 06:45 10/22/19 05:52 10/22/19 05:52 Sodium 143.8 Potassium 3.7 Chloride 117 H Carbon Dioxide 15 L Anion Gap 12 BUN 40 H Creatinine 2.92 H Est GFR ( Amer) 27 L Glucose 101 Calcium 8.0 L 10/16/19 13:43 Blood Blood Culture - Final NO GROWTH IN 5 DAYS 10/16/19 08:40 Blood Blood Culture - Final NO GROWTH IN 5 DAYS 10/06/19 10/06/19 10/07/19 20:00 20:00 10:19 Creatine Kinase Troponin I < 0.012 NT-Pro-B Natriuret Pep 4000 H 17926 H 10/11/19 10/18/19 10/21/19 05:40 04:44 05:06 Creatine Kinase < 20 L Troponin I NT-Pro-B Natriuret Pep 58701 H 3660 H Impressions: Chest/Abdomen CTA 10/06/19 21:18 IMPRESSION: Negative for pulmonary embolus, thoracic aortic aneurysm, or dissection. Extensive axillary and mediastinal adenopathy, also described previously. Small bilateral pleural effusions. Extensive patchy airspace opacities bilaterally predominantly having a groundglass appearance and likely reflecting pneumonia. Some of the opacities are somewhat nodular as well. While findings may reflect multifocal pneumonia, close follow-up following appropriate therapy is recommended. Metastatic disease is not excluded entirely. TECHNICAL DOCUMENTATION: Quality ID # 436: Final reports with documentation of one or more dose reduction techniques (e.g., Automated exposure control, adjustment of the mA and/or kV according to patient size, use of iterative reconstruction technique) copyright 2010 [employer]- All Rights Reserved Abdomen Ultrasound 10/07/19 00:00 IMPRESSION: 1. Limited visualization of the pancreas. 2. No abnormality of the liver, gallbladder and right kidney. 3. Right pleural effusion. Abdomen/Pelvis CT 10/07/19 00:00 IMPRESSION: No acute process is seen within the abdomen or pelvis. Extensive adenopathy is again seen at the bilateral inguinal, retroperitoneal, pelvic lymph nodes. Mild splenomegaly is also noted. Foot X-Ray 10/07/19 10:03 IMPRESSION: 1. Arthrodesis hardware that transfixes the 1st MTP joint. There is no periprosthetic fracture. 2. Dorsal soft tissue swelling. Interventional Vascular Procedure 10/08/19 00:00 IMPRESSION: SUCCESSFUL PLACEMENT OF A 5 FR DUAL LUMEN 36 CM PICC IN THE LEFT BASILIC VEIN. PICC Line Insertion 10/08/19 00:00 IMPRESSION: SUCCESSFUL PLACEMENT OF A 5 FR DUAL LUMEN 36 CM PICC IN THE LEFT BASILIC VEIN. Chest X-Ray 10/11/19 06:00 IMPRESSION: 1. Interval increase in bilateral pleural effusions with bibasilar opacities which may be related to pneumonia or pulmonary edema. Renal Ultrasound 10/19/19 00:00 IMPRESSION: Unremarkable appearance to the kidneys bilaterally copyright 2010 [employer]- All Rights Reserved Assessment & Plan - Diagnosis (1) DARIUS (acute kidney injury) Is this a current diagnosis for this admission?: Yes Plan: Secondary to vancomycin toxicity and hypotension. Nonoliguric. Kidney function continues to improve. Creatinine currently at 2.92. Baseline creatinine is around 0.6-0.8. There is no indication for any acute renal replacement therapy. Continue to monitor kidney function. Decrease IV fluids to 50 mL an hour just for maintenance the patient seems to be developing some lower extremity edema. (2) Hypotension Qualifiers: Hypotension type: unspecified hypotension type Qualified Code(s): I95.9 - Hypotension, unspecified Is this a current diagnosis for this admission?: Yes Plan: Due to adrenal insufficiency. On hydrocortisone and Florinef. Hospitalist adjusting doses. (3) Adrenal insufficiency Is this a current diagnosis for this admission?: Yes Plan: Status post left adrenalectomy in 2009. (4) Metabolic acidosis Is this a current diagnosis for this admission?: Yes Plan: Worsening. Sodium bicarbonate orally. (5) Anemia of chronic disease Is this a current diagnosis for this admission?: Yes (6) MRSA bacteremia Is this a current diagnosis for this admission?: Yes Plan: Vancomycin discontinued. Vancomycin trough level today is 18.7. Infectious disease recommends switching to IV daptomycin to be started today. (7) Hyponatremia Is this a current diagnosis for this admission?: Yes Plan: Resolved. 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 Yoo plans to start chemotherapy in the next 2 to 3 weeks after treatment of his infection. - Time Time with patient: 15-25 minutes
[2019-10-23] MEDS: SODIUM BICARBONATE 650 MG TABLET PO SCH ×2 (00:37→10:02)
[2019-10-23] MEDS: PANTOPRAZOLE SODIUM 40 MG TABLET.DR PO SCH (05:42)
[2019-10-23] MEDS ORDERED: HYDROCORTISONE 10 MG TABLET PO SCH (08:00)
[2019-10-23 08:32] LABS: HEMATOCRIT 27.1 % (37.9-51.0); HEMOGLOBIN 9.3 g/dL (13.5-17.0); MEAN CORPUSCULAR HEMOGLOBIN 27.4 pg (27.0-33.4); MEAN CORPUSCULAR HGB CONC 34.2 g/dL (32.0-36.0); MEAN CORPUSCULAR VOLUME 80 fl (80-97); PLATELET COUNT 568 10^3/uL (150-450); RED CELL DISTRIBUTION WIDTH 17.8 % (11.5-14.0); WHITE BLOOD COUNT 9.4 10^3/uL (4.0-10.5)
[2019-10-23 08:54] LABS: ANION GAP 12 (5-19); BLOOD UREA NITROGEN 39 mg/dL (7-20); C-REACTIVE PROTEIN 7.3 mg/L (<10.0); CALCIUM 8.3 mg/dL (8.4-10.2); CARBON DIOXIDE 17 mmol/L (22-30); CHLORIDE 115 mmol/L (98-107); GLUCOSE 84 mg/dL (75-110); PHOSPHORUS 4.1 mg/dL (2.5-4.5); POTASSIUM 3.2 mmol/L (3.6-5.0)
[2019-10-23 08:56] LABS: ABSOLUTE LYMPHOCYTES# (MANUAL) 3.3 10^3/uL (0.5-4.7); ABSOLUTE MONOCYTES # (MANUAL) 0.9 10^3/uL (0.1-1.4); BAND NEUTROPHILS % (MANUAL) 1 % (3-5); BASOPHILS % (MANUAL) 0 % (0-2); EOSINOPHILS % (MANUAL) 0 % (0-6); LYMPHOCYTES % (MANUAL) 35 % (13-45); MONOCYTES % (MANUAL) 10 % (3-13); SEGMENTED NEUTROPHILS % (MAN) 54 % (42-78); TOTAL CELLS COUNTED 100
[2019-10-23 08:58] LABS: ANISOCYTOSIS 1+
[2019-10-23 08:59] LABS: OVALOCYTES SLIGHT; PLATELET COMMENT INCREASED
[2019-10-23] MEDS: FLUDROCORTISONE ACETATE 0.1 MG TABLET PO SCH (10:03)
[2019-10-23] MEDS: ENOXAPARIN SODIUM INJ 40 MG/0.4 ML DISP.SYRIN SUBCUT SCH (10:04)
[2019-10-23] MEDS: ATENOLOL 50 MG TABLET PO SCH (10:05)
[2019-10-23] MEDS: NYSTATIN/DEXAMETH/DIPHEN SUSP 120 ML PO SCH (10:07)
[2019-10-23] MEDS: ALLOPURINOL 300 MG TABLET PO SCH (10:07)
[2019-10-23] MEDS: NORMAL SALINE 10 ML SDV (SCHEDULED) IV SCH (10:07)
--- NOTE | 2019-10-23 11:17 | PDOC DISCHARGE SUMMARY ---
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 Is this a current diagnosis for this admission?: Yes (7) Abdominal pain Is this a current diagnosis for this admission?: Yes (8) Tachypnea Is this a current diagnosis for this admission?: Yes (9) Tachycardia Is this a current diagnosis for this admission?: Yes (10) Cardiomyopathy Is this a current diagnosis for this admission?: Yes - Additional Information Resuscitation Status: Full Code Discharge Diet: Regular Discharge Activity: Activity As Tolerated, Slowly Increase Activity Referrals: FABIANA LERMA MD [Primary Care Provider] - Follow up as needed (LEFT MESSAGE FOR FOLLLOW UP APPT.) Prescriptions: Hydrocortisone [Cortef 10 mg Tablet] 10 mg PO ASDIR 30 Days #90 tablet Fludrocortisone Acetate [Florinef 0.1 mg Tablet] 0.05 mg PO DAILY 30 Days #30 tablet Pantoprazole Sodium [Protonix [address] Tablet] 40 mg PO Q6AM 30 Days #30 tablet.dr Sodium Bicarbonate [Sodium Bicarbonate 650 mg Tablet] 650 mg PO Q12 30 Days #60 tablet Allopurinol [Zyloprim 300 mg Tablet] 300 mg PO DAILY 30 Days #30 tablet Linezolid [Zyvox 600 mg Tablet] 600 mg PO Q12 #60 tablet Linezolid [Zyvox 600 mg Tablet] 600 mg PO Q12 16 Days #32 tablet Home Medications: Prednisone 10 mg PO ASDIR 30 Days #105 tablet 09/28/19 Atenolol [Tenormin] 12.5 mg PO DAILY 10/07/19 Hydrocodone/Acetaminophen [[place] 5-325 Tablet] 1 each PO Q6HP PRN 10/07/19 Allopurinol [Zyloprim 300 mg Tablet] 300 mg PO DAILY 30 Days #30 tablet 10/23/19 Atenolol [Tenormin 50 mg Tablet] 12.5 mg PO DAILY tablet 10/23/19 Benzocaine/Menthol [Chloraseptic Sore Throat Lozenge] 1 each BUCCAL Q2HP PRN lozenge 10/23/19 Fludrocortisone Acetate [Florinef 0.1 mg Tablet] 0.05 mg PO DAILY 30 Days #30 tablet 10/23/19 Hydrocortisone [Cortef 10 mg Tablet] 10 mg PO ASDIR 30 Days #90 tablet 10/23/19 Linezolid [Zyvox 600 mg Tablet] 600 mg PO Q12 #60 tablet 10/23/19 Linezolid [Zyvox 600 mg Tablet] 600 mg PO Q12 16 Days #32 tablet 10/23/19 Pantoprazole Sodium [Protonix [address] Tablet] 40 mg PO Q6AM 30 Days #30 tablet.dr 10/23/19 Sodium Bicarbonate [Sodium Bicarbonate 650 mg Tablet] 650 mg PO Q12 30 Days #60 tablet 10/23/19 History of Present Illiness History of Present Illness: MELITA SETH is a 54 year old male who comes in with about a four 5-day history of increased shortness of breath, nonproductive cough, and a 1 to 2-day history of chills. Patient was just in the hospital and discharged on 09/28, for his adrenal insufficiency, that is post left adrenalectomy, hypermetabolic right adrenal gland. Patient also has a history of sarcoid of the lymph nodes and pancytopenia. Night patient comes in initially with a temperature of 99.6 however while in the emergency room this went up to 103. PA the chest shows probable pneumonia, patient's white count tonight is 29,600. Patient is however on p.o. prednisone, however in light of his fever chills and CT scan showing infiltrates this is probably based on his pneumonia as opposed to his steroids. Patient also complains of the cough and increased shortness of breath. Patient will be admitted to the hospital for gentle hydration as well as IV antibiotics. Hospital Course Hospital Course: The patient had a complex hospital course. See above. Physical Exam Vital Signs: Temp Pulse Resp BP Pulse Ox 97.8 F 88 16 130/67 H 97 10/23/19 08:00 10/23/19 09:56 10/23/19 09:56 10/23/19 08:00 10/23/19 09:56 Intake & Output 10/22/19 10/23/19 10/24/19 06:59 06:59 06:59 Intake Total 2927 2170 Output Total 725 1180 Balance 2202 990 Weight 62.2 kg 64.2 kg General appearance: PRESENT: no acute distress, cooperative, well-developed Eye exam: PRESENT: conjunctiva pink. ABSENT: scleral icterus Respiratory exam: PRESENT: clear to auscultation ramila, symmetrical, unlabored. ABSENT: rales, rhonchi, tachypnea, wheezes Cardiovascular exam: PRESENT: RRR, +S1, +S2 GI/Abdominal exam: PRESENT: normal bowel sounds, soft. ABSENT: distended, tenderness Rectal exam: PRESENT: deferred Gentrourinary exam: ABSENT: indwelling catheter Musculoskeletal exam: PRESENT: ambulatory, other - Dressing on left foot Neurological exam: PRESENT: alert, awake, oriented to person, oriented to place, oriented to time, oriented to situation, CN II-XII grossly intact. ABSENT: altered, motor sensory deficit Psychiatric exam: PRESENT: appropriate affect, normal mood. ABSENT: agitated, anxious Focused psych exam: ABSENT: delusional, paranoid, restlessness Results Laboratory Results: WBC 9.4 10^3/uL (4.0-10.5) 10/23/19 08:09 RBC 3.40 10^6/uL (4.35-5.55) L 10/23/19 08:09 Hgb 9.3 g/dL (13.5-17.0) L 10/23/19 08:09 Hct 27.1 % (37.9-51.0) L 10/23/19 08:09 MCV 80 fl (80-97) 10/23/19 08:09 MCH 27.4 pg (27.0-33.4) 10/23/19 08:09 MCHC 34.2 g/dL (32.0-36.0) 10/23/19 08:09 RDW 17.8 % (11.5-14.0) H 10/23/19 08:09 Plt Count 568 10^3/uL (150-450) H 10/23/19 08:09 Lymph % (Auto) Not Reportable 10/23/19 08:09 [place] % (Auto) Not Reportable 10/23/19 08:09 Eos % (Auto) Not Reportable 10/23/19 08:09 Baso % (Auto) Not Reportable 10/23/19 08:09 Absolute Neuts (auto) Not Reportable 10/23/19 08:09 Absolute Lymphs (auto) Not Reportable 10/23/19 08:09 Absolute Monos (auto) Not Reportable 10/23/19 08:09 Absolute Eos (auto) Not Reportable 10/23/19 08:09 Absolute Basos (auto) Not Reportable 10/23/19 08:09 Total Counted 100 10/23/19 08:09 Seg Neutrophils % Not Reportable 10/23/19 08:09 Seg Neuts % (Manual) 54 % (42-78) 10/23/19 08:09 Band Neutrophils % 1 % (3-5) L 10/23/19 08:09 Lymphocytes % (Manual) 35 % (13-45) 10/23/19 08:09 Monocytes % (Manual) 10 % (3-13) 10/23/19 08:09 Eosinophils % (Manual) 0 % (0-6) 10/23/19 08:09 Basophils % (Manual) 0 % (0-2) 10/23/19 08:09 Abs Neuts (Manual) 5.2 10^3/uL (1.7-8.2) 10/23/19 08:09 Abs Lymphs (Manual) 3.3 10^3/uL (0.5-4.7) 10/23/19 08:09 Abs Monocytes (Manual) 0.9 10^3/uL (0.1-1.4) 10/23/19 08:09 Absolute Eos (Manual) 0.0 10^3/uL (0.0-0.6) 10/23/19 08:09 Abs Basophils (Manual) 0.0 10^3/uL (0.0-0.2) 10/23/19 08:09 Toxic Granulation 1+ 10/06/19 20:00 Platelet Comment INCREASED 10/23/19 08:09 Polychromasia SLIGHT 10/06/19 20:00 Poikilocytosis SLIGHT 10/07/19 04:16 Anisocytosis 1+ 10/23/19 08:09 Microcytosis SLIGHT 10/23/19 08:09 Tear Drop Cells SLIGHT 10/07/19 04:16 Ovalocytes SLIGHT 10/23/19 08:09 ESR 28 mm/hr (0-20) H 10/07/19 15:10 Eos Smear Source URINE 10/20/19 05:55 Eosinophil Smear NO EOSINOPHILS SEEN 10/20/19 05:55 PT 17.1 SEC (11.4-15.4) H 10/08/19 11:51 INR 1.38 10/08/19 11:51 APTT 45.8 SEC (23.5-35.8) H 10/08/19 11:51 Carbonic Acid 1.18 mmol/L (1.05-1.35) 10/07/19 01:45 HCO3/H2CO3 Ratio 20:1 10/07/19 01:45 ABG pH 7.40 (7.35-7.45) 10/07/19 01:45 ABG pCO2 39.3 mmHg (35-45) 10/07/19 01:45 ABG pO2 64.9 mmHg (80-100) L 10/07/19 01:45 ABG HCO3 23.9 mmol/L (20-24) 10/07/19 01:45 ABG Total CO2 25.1 mmol/L (23-27) 10/07/19 01:45 ABG O2 Saturation 92.8 % (94-98) L 10/07/19 01:45 ABG Base Excess -0.7 mmol/L 10/07/19 01:45 FiO2 4L 10/07/19 01:45 Sodium 144.1 mmol/L (137-145) 10/23/19 08:09 Potassium 3.2 mmol/L (3.6-5.0) L 10/23/19 08:09 Chloride 115 mmol/L (98-107) H 10/23/19 08:09 Carbon Dioxide 17 mmol/L (22-30) L 10/23/19 08:09 Anion Gap 12 (5-19) 10/23/19 08:09 BUN 39 mg/dL (7-20) H 10/23/19 08:09 Creatinine 2.63 mg/dL (0.52-1.25) H 10/23/19 08:09 Est GFR ( Amer) 31 (>60) L 10/23/19 08:09 Est GFR (MDRD) Non-Af 26 (>60) L 10/23/19 08:09 Glucose 84 mg/dL (75-110) 10/23/19 08:09 POC Glucose 129 mg/dL (70-110) H 10/08/19 01:21 Lactic Acid 2.1 mmol/L (0.7-2.1) 10/08/19 01:38 Calcium 8.3 mg/dL (8.4-10.2) L 10/23/19 08:09 Ionized Calcium Tanner 1.12 mmol/L (1.14-1.30) L 10/09/19 04:45 Phosphorus 4.1 mg/dL (2.5-4.5) 10/23/19 08:09 Magnesium 1.5 mg/dL (1.6-2.3) L 10/23/19 08:09 Total Bilirubin 0.3 mg/dL (0.2-1.3) 10/19/19 06:45 Direct Bilirubin 0.1 mg/dL (0.0-0.4) 10/19/19 06:45 Neonat Total Bilirubin Not Reportable 10/19/19 06:45 Neonat Direct Bilirubin Not Reportable 10/19/19 06:45 Neonat Indirect Bili Not Reportable 10/19/19 06:45 AST 18 U/L (17-59) 10/19/19 06:45 ALT 8 U/L (<50) 10/19/19 06:45 Alkaline Phosphatase 93 U/L (38-126) 10/19/19 06:45 Creatine Kinase < 20 U/L (55-170) L 10/21/19 05:06 Troponin I < 0.012 ng/mL 10/06/19 20:00 C-Reactive Protein 7.3 mg/L (<10.0) 10/23/19 08:09 NT-Pro-B Natriuret Pep 3660 pg/mL (<125) H 10/18/19 04:44 Total Protein 5.8 g/dL (6.3-8.2) L 10/19/19 06:45 Albumin 3.0 g/dL (3.5-5.0) L 10/23/19 08:09 Lipase 26.4 U/L (23-300) 10/07/19 04:16 Procalcitonin 33.90 ng/mL (0.00-0.08) H 10/07/19 10:19 Random Cortisol 5.29 ug/dL (None Established) 10/18/19 13:29 Cortisol AM Sample 4.93 ug/dL (4.46-22.7) 10/18/19 09:50 ACTH 340.0 pg/mL (7.2-63.3) H 10/18/19 13:14 Urine Color JOSE ENRIQUE 10/18/19 11:55 Urine Appearance CLOUDY 10/18/19 11:55 Urine pH 5.0 (5.0-9.0) 10/18/19 11:55 Ur Specific Cornelius 1.015 10/18/19 11:55 Urine Protein 30 mg/dL (NEGATIVE) H 10/18/19 11:55 Urine Glucose (UA) NEGATIVE mg/dL (NEGATIVE) 10/18/19 11:55 Urine Ketones NEGATIVE mg/dL (NEGATIVE) 10/18/19 11:55 Urine Blood NEGATIVE (NEGATIVE) 10/18/19 11:55 Urine Nitrite NEGATIVE (NEGATIVE) 10/18/19 11:55 Urine Bilirubin NEGATIVE (NEGATIVE) 10/18/19 11:55 Urine Urobilinogen NEGATIVE mg/dL (<2.0) 10/18/19 11:55 Ur Leukocyte Esterase NEGATIVE (NEGATIVE) 10/18/19 11:55 Urine WBC (Auto) 0 /HPF 10/18/19 11:55 Urine RBC (Auto) 1 /HPF 10/07/19 07:35 Urine Bacteria (Auto) TRACE /HPF 10/18/19 11:55 Squamous Epi Cells Auto <1 /HPF 10/18/19 11:55 Amorphous Sediment Auto TRACE /HPF 10/18/19 11:55 Urine Mucus (Auto) RARE /LPF 10/18/19 11:55 Urine Osmolality 380 mOsm/kg (300-900) 10/07/19 23:20 Urine Creatinine 188.1 mg/dL (22-328) 10/20/19 05:55 Urine Sodium 11 mmol/L (30-90) L 10/20/19 05:55 Urine Ascorbic Acid NEGATIVE (NEGATIVE) 10/18/19 11:55 Time Trough Drawn 0552 10/22/19 05:52 Vancomycin Trough 18.7 ug/mL (5.0-20.0) 10/22/19 05:52 Urine Opiates Screen UNCONFIRMED POSITIVE 10/09/19 09:19 Urine Methadone Screen NEGATIVE 10/09/19 09:19 Ur Barbiturates Screen NEGATIVE 10/09/19 09:19 Ur Phencyclidine Scrn NEGATIVE 10/09/19 09:19 Ur Amphetamines Screen NEGATIVE 10/09/19 09:19 U Benzodiazepines Scrn NEGATIVE 10/09/19 09:19 Urine Cocaine Screen NEGATIVE 10/09/19 09:19 U Marijuana (THC) Screen NEGATIVE 10/09/19 09:19 10/06/19 10/06/19 10/07/19 20:00 20:00 10:19 Troponin I < 0.012 NT-Pro-B Natriuret Pep 4000 H 47087 H 10/11/19 10/18/19 05:40 04:44 Troponin I NT-Pro-B Natriuret Pep 50813 H 3660 H Impressions: Chest X-Ray 10/06/19 19:54 IMPRESSION: Bilateral basilar atelectasis and pleural effusions 2 cm nodular density in the right midlung new when compared to prior studies. This may represent area of infiltrate but the possibility of metastatic focus is not excluded. Recommend CT Chest/Abdomen CTA 10/06/19 21:18 IMPRESSION: Negative for pulmonary embolus, thoracic aortic aneurysm, or dissection. Extensive axillary and mediastinal adenopathy, also described previously. Small bilateral pleural effusions. Extensive patchy airspace opacities bilaterally predominantly having a groundglass appearance and likely reflecting pneumonia. Some of the opacities are somewhat nodular as well. While findings may reflect multifocal pneumonia, close follow-up following appropriate therapy is recommended. Metastatic disease is not excluded entirely. TECHNICAL DOCUMENTATION: Quality ID # [id number]: Final reports with documentation of one or more dose reduction techniques (e.g., Automated exposure control, adjustment of the mA and/or kV according to patient size, use of iterative reconstruction technique) copyright 2011 [employer]- All Rights Reserved Abdomen Ultrasound 10/07/19 00:00 IMPRESSION: 1. Limited visualization of the pancreas. 2. No abnormality of the liver, gallbladder and right kidney. 3. Right pleural effusion. Abdomen/Pelvis CT 10/07/19 00:00 IMPRESSION: No acute process is seen within the abdomen or pelvis. Extensive adenopathy is again seen at the bilateral inguinal, retroperitoneal, pelvic lymph nodes. Mild splenomegaly is also noted. Foot X-Ray 10/07/19 10:03 IMPRESSION: 1. Arthrodesis hardware that transfixes the 1st MTP joint. There is no periprosthetic fracture. 2. Dorsal soft tissue swelling. Interventional Vascular Procedure 10/08/19 00:00 IMPRESSION: SUCCESSFUL PLACEMENT OF A 5 FR DUAL LUMEN 36 CM PICC IN THE LEFT BASILIC VEIN. PICC Line Insertion 10/08/19 00:00 IMPRESSION: SUCCESSFUL PLACEMENT OF A 5 FR DUAL LUMEN 36 CM PICC IN THE LEFT BASILIC VEIN. Chest X-Ray 10/09/19 00:00 IMPRESSION: MILD FREE FLOWING LEFT PLEURAL EFFUSION. STABLE BIBASILAR CONSOLIDATION, LIKELY ATELECTASIS. Chest X-Ray 10/11/19 06:00 IMPRESSION: 1. Interval increase in bilateral pleural effusions with bibasilar opacities which may be related to pneumonia or pulmonary edema. Renal Ultrasound 10/19/19 00:00 IMPRESSION: Unremarkable appearance to the kidneys bilaterally copyright 2011 [employer]- All Rights Reserved Plan Health Concerns: The patient still needs to complete 16 days of antibiotics. He should then have blood cultures prior to considering Port-A-Cath placement for chemotherapy. Renal function continues to improve slowly. Will need to follow-up with nephrology as well. Ongoing wound care can be combination of home health and the wound care center. Plan of Treatment: For the MRSA infection-16 more days of Zyvox 600 mg twice daily with weekly labs. I would then repeat blood cultures. If negative then proceed with Port-A-Cath placement for chemotherapy for his lymphoma. Renal [id number] with primary care and nephrology Foot wound-refer to wound care center Primary care follow-up Dr. Lerma Goals: Complete resolution of infection, complete recovery of renal function, healing of wound and then treatment for lymphoma Time Spent: Greater than 30 Minutes Stroke Is this a Stroke Patient?: No Acute Heart Failure - Is this a Heart Failure Patient?: No
[2019-10-23] MEDS ORDERED: POTASSIUM CHLORIDE 10 MEQ TABLET.ER PO ONE (12:00)
[2019-10-23] MEDS ORDERED: INFLUENZA QUAD (6MOS+) 2019-20 VAC 0.5 ML SYR IM ONE (12:30)
[2019-10-23 13:32] VITALS: BP 133/66
== END 2019-10-23 13:40 | disposition home health service (06) | DRG 871 ==
LOC: ER 19:24 → EH 23:48 → 3S 10-07 00:28 → ICU 10-07 08:47 → 4S 10-13 15:55
PROVIDERS: ADMIT Internal Medicine; ATTEND Hospitalist
PROC: 0H9NXZX Drainage of Left Foot Skin, External Approach, Diagnostic (ICD-10-PCS; principal; 2019-10-07)
PROC: 02HV33Z Insertion of Infusion Device into Superior Vena Cava, Percutaneous Approach (ICD-10-PCS; 2019-10-08)
PROC: B518ZZA Fluoroscopy of Superior Vena Cava, Guidance (ICD-10-PCS; 2019-10-08)
PROC: B548ZZA Ultrasonography of Superior Vena Cava, Guidance (ICD-10-PCS; 2019-10-08)
PROC: 3E0234Z Introduction of Serum, Toxoid and Vaccine into Muscle, Percutaneous Approach (ICD-10-PCS; 2019-10-23)
DX: R78.81 Bacteremia (principal); J18.9 Pneumonia, unspecified organism; C91.00 Acute lymphoblastic leukemia not having achieved remission; C84.43 Peripheral T-cell lymphoma, not elsewhere classified, intra-abdominal lymph nodes; E87.2 Acidosis; J90 Pleural effusion, not elsewhere classified; E27.1 Primary adrenocortical insufficiency; I42.9 Cardiomyopathy, unspecified; N17.9 Acute kidney failure, unspecified; E87.1 Hypo-osmolality and hyponatremia; L03.116 Cellulitis of left lower limb; B95.62 Methicillin resistant Staphylococcus aureus infection as the cause of diseases classified elsewhere; I10 Essential (primary) hypertension; J44.9 Chronic obstructive pulmonary disease, unspecified; F31.9 Bipolar disorder, unspecified; R93.2 Abnormal findings on diagnostic imaging of liver and biliary tract; Z23 Encounter for immunization; D64.9 Anemia, unspecified
CPT/HCPCS: 36415; 36569; 71045; 71275; 74176; 76705; 76775; 76937; 80048; 80053; 80069; 80076; 80202; 80307; 81001; 81002; 82024; 82330; 82533; 82550; 82565; 82570; 82803; 82962; 83605; 83690; 83735; 83880; 83935; 84100; 84132; 84145; 84300; 84484; 85025; 85610; 85652; 85730; 86140; 87040; 87070; 87077; 87150; 87186; 87205; 89190; 90686; 90715; 93005; 93010; 93306; 93308; 94640; 96365; 96375; 99231; 99232; 99285; 99291; 99292; C9113; J0456; J0696; J0834; J0878; J1170; J1642; J1644; J1650; J1720; J1940; J2060; J2250; J2405; J2930; J3010; J3370; J3475; J3490; J7030; J7060; J7120; J7512; J7620

== ENCOUNTER 2019-11-06 11:26 | Emergency (ER) | payer MEDICAID ==
[2019-11-06 12:24] LABS: ABSOLUTE EOSINOPHILS # (AUTO) 0.1 10^3/uL (0.0-0.6); ABSOLUTE LYMPHOCYTES (AUTO) 1.1 10^3/uL (0.5-4.7); ABSOLUTE MONOCYTES (AUTO) 0.2 10^3/uL (0.1-1.4); ABSOLUTE NEUT (AUTO) 4.3 10^3/uL (1.7-8.2); BASOPHILS % (AUTO) 0.8 % (0-2); EOSINOPHILS % (AUTO) 1.1 % (0-6); HEMATOCRIT 25.8 % (37.9-51.0); HEMOGLOBIN 8.7 g/dL (13.5-17.0); LYMPHOCYTES % (AUTO) 18.6 % (13-45); MEAN CORPUSCULAR HEMOGLOBIN 26.6 pg (27.0-33.4); MEAN CORPUSCULAR HGB CONC 33.9 g/dL (32.0-36.0); MEAN CORPUSCULAR VOLUME 79 fl (80-97); PLATELET COUNT 133 10^3/uL (150-450); RED BLOOD COUNT 3.29 10^6/uL (4.35-5.55); RED CELL DISTRIBUTION WIDTH 18.9 % (11.5-14.0); SEGMENTED NEUTROPHILS % (AUTO) 75.5 % (42-78); TOTAL CELLS COUNTED % (AUTO) 100 %; WHITE BLOOD COUNT 5.7 10^3/uL (4.0-10.5)
[2019-11-06 12:46] LABS: ALBUMIN 3.5 g/dL (3.5-5.0); ALKALINE PHOSPHATASE 71 U/L (38-126); ASPARTATE AMINO TRANSFERASE 16 U/L (17-59); BLOOD UREA NITROGEN 15 mg/dL (7-20); CALCIUM 7.6 mg/dL (8.4-10.2); CHLORIDE 93 mmol/L (98-107); GLUCOSE 114 mg/dL (75-110); TOTAL PROTEIN 6.5 g/dL (6.3-8.2)
[2019-11-06 13:15] LABS: ANION GAP 7 (5-19); CARBON DIOXIDE 39 mmol/L (22-30)
[2019-11-06 13:18] LABS: POTASSIUM 2.7 mmol/L (3.6-5.0)
[2019-11-06] MEDS ORDERED: POTASSIUM CHLORIDE 20 MEQ PACKET PO ONE (13:24)
--- NOTE | 2019-11-06 13:24 | ER Document Report ---
Entered by ESTHER ESCALANTE SCRIBE 11/06/19 1235 Acting as scribe for:ALTA ABRAHAM MD ED General - General Chief Complaint: Abnormal Lab Results Stated Complaint: ABNORMAL LABS Time Seen by Provider: 11/06/19 12:24 Primary Care Provider: THOMAS YOO MD [ACTIVE STAFF] - 11/10/19 3:15 pm FABIANA RAYMOND MD [Primary Care Provider] - Follow up as needed Mode of Arrival: Wheelchair Information source: Patient Notes: This 54-year-old male patient presents to the emergency department today with complaints of a low potassium on outpatient labs yesterday. Patient states that he had outpatient labs drawn at his primary care physician's office, Dr. Fabiana Raymond, and he was called today with a result of a potassium of 2.6. Patient has T-cell lymphoma, diagnosed x1-2 months ago. Patient is due to start chemo soon. Patient states he takes potassium supplements daily. Patient recently had an extended inpatient stay at this facility for pneumonia with respiratory failure from 10/06/2019 to 10/23/2019. TRAVEL OUTSIDE OF THE [place] IN LAST 30 DAYS: No - Related Data Allergies/Adverse Reactions: No Known Allergies Allergy (Verified 11/06/19 14:08) Home Medications: Chloraseptic throat lozengs. Cortef. Florinef. Potassium chloride. Protonix. Sodium Bicarbonate. Atenolol. Allopurinol. Linezolid Past Medical History - General Information source: Patient - Social History Smoking Status: Former Smoker Cigarette use (# per day): No Frequency of alcohol use: Social Drug Abuse: None Lives with: Family Family History: None, Malignancy Patient has suicidal ideation: No Patient has homicidal ideation: No - Past Medical History Cardiac Medical History: Reports: Hx Hypertension Pulmonary Medical History: Reports: Hx Asthma, Hx Bronchitis, Hx COPD, Hx Pneumonia, Hx Respiratory Failure Malignancy Medical History: Reports Hx Lymphoma - T-cell Musculoskeletal Medical History: Reports Hx Musculoskeletal Trauma Psychiatric Medical History: Reports: Hx Bipolar Disorder, Hx Depression Past Surgical History: Reports: Hx Kidney (Renal Surgery) - unilateral adrenalectomy 08/23, Hx Orthopedic Surgery - plate/screws in toe, Other - Left adrenalectomy - Immunizations Hx Diphtheria, Pertussis, Tetanus Vaccination: Yes Review of Systems - Review of Systems Constitutional: See HPI, Other - Potassium of 2.6 on outpatient labs EENT: No symptoms reported Cardiovascular: No symptoms reported Respiratory: No symptoms reported Gastrointestinal: No symptoms reported Genitourinary: No symptoms reported Male Genitourinary: No symptoms reported Musculoskeletal: No symptoms reported Skin: No symptoms reported Hematologic/Lymphatic: No symptoms reported Neurological/Psychological: No symptoms reported -: Yes All other systems reviewed and negative Physical Exam - Vital signs Vitals: Resp Pulse Ox 22 H 97 11/06/19 11:27 11/06/19 11:27 - Notes Notes: Physical Exam: General: Alert, non-toxic appearing. HEENT: Normocephalic. Atraumatic. PERRL. Extraocular movements intact. O ropharynx clear. Neck: Supple. Non-tender. Respiratory: No respiratory distress. Clear and equal breath sounds bilaterally. Cardiovascular: Regular rate and rhythm. Abdominal: Normal Inspection. Non-tender. No distension. Normal Bowel Sounds. Back: No gross abnormalities. Extremities: Moves all four extremities. Upper extremities: Normal inspection. Normal ROM. Lower extremities: Walking boot on left foot. No edema. Normal ROM. Neurological: Normal cognition. AAOx4. Normal speech. Psychological: Normal affect. Normal Mood. Skin: Warm. Dry. Normal color. Course - Re-evaluation Re-evalutation: 11/06/19 14:11 Patient's initial potassium was 2.7, he was given 40 mEq of oral potassium. Case was discussed with Dr. Yoo, he requests an additional 40 mEq IV given prior to discharge. He will also increase his daily potassium of 20 mEq daily to 20 mEq twice daily. He is to follow-up in the office on 11/10/2019 at 3:15 PM for repeat lab work. - Vital Signs Vital signs: Temp Pulse Resp BP Pulse Ox 98.5 F 17 138/72 H 98 11/06/19 11:33 11/06/19 11:29 11/06/19 11:29 11/06/19 11:29 - Laboratory Result Diagrams: 11/06/19 12:15 11/06/19 12:15 Laboratory results interpreted by me: 11/06/19 11/06/19 12:15 12:15 RBC 3.29 L Hgb 8.7 L Hct 25.8 L MCV 79 L MCH 26.6 L RDW 18.9 H Plt Count 133 L Potassium 2.7 L* Chloride 93 L Carbon Dioxide 39 H Creatinine 1.58 H Est GFR ( Amer) 56 L Est GFR (MDRD) Non-Af 46 L Glucose 114 H Calcium 7.6 L AST 16 L - EKG Interpretation by Me EKG shows normal: Sinus rhythm, [place], QRS Complexes. abnormal: Intervals - Prolonged QT interval, ST-T Waves - Borderline anterior T abnormalities Rate: Normal - 77 Rhythm: NSR When compared to previous EKG there are: Changes noted - QT prolongation is a new finding. - Transfer of Care Care transferred to following provider: Dr. Camp Notes: 11/06/19 14:28 Patient is to receive 40 mEq of potassium IV and then to be discharged. 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 Hypokalemia may cause weakness, fatigue, or heart rhythm abnormalities. Sometimes there are no symptoms at all. Usually, low serum potassium is due to taking diuretics (water pills). It can also be due to excessive vomiting or diarrhea. If no obvious cause is evident, further evaluation will be necessary. Treatment is usually oral potassium supplements. Take these exactly as prescribed. You may also want to select foods which are naturally high in potassium -- fruits (such as bananas, cantaloupe, grapes, oranges, prunes, tomatoes), fresh vegetables (potatoes, spinach, beans, peas), orange or tomato juice, tomato pasta sauce, milk, fish (halibut, tuna, salmon, xochitl) A follow-up blood test is usually performed to assure that the potassium is returning to normal. Call the physician if you suffer severe weakness, muscle twitching or cramping, palpitations (pounding or irregular heartbeat), or any other new or alarming symptoms. Increase your potassium tablets at home to 1 tablet twice daily. Follow-up with Dr. Yoo in the office on 11/10/2019 at 3:15 PM. RETURN TO THE EMERGENCY ROOM IF ANY NEW OR WORSENING SYMPTOMS. Referrals: FABIANA RAYMOND MD [Primary Care Provider] - Follow up as needed THOMAS YOO MD [ACTIVE STAFF] - 11/10/19 3:15 pm I personally performed the services described in the documentation, reviewed and edited the documentation which was dictated to the scribe in my presence, and it accurately records my words and actions.
[2019-11-06] MEDS: POTASSI CL 20 MEQ/50 ML RIDER 20 MEQ/50 ML RTUPB IV SCH ×2 (14:37→16:08)
--- NOTE | 2019-11-06 16:50 | EKG REPORT ---
SEVERITY:- ABNORMAL ECG - SINUS RHYTHM BORDERLINE T ABNORMALITIES, ANTERIOR LEADS PROLONGED QT INTERVAL : Confirmed by: Fatuma Kimble 06-Nov-2019 16:49:57
[2019-11-06 17:54] VITALS: BP 151/68
== END 2019-11-06 18:33 | disposition home or self-care (01) ==
LOC: ER 11:26
DX: E87.6 Hypokalemia (principal); C84.43 Peripheral T-cell lymphoma, not elsewhere classified, intra-abdominal lymph nodes; I10 Essential (primary) hypertension
CPT/HCPCS: 93005; 99284; 96365; 96366; 36415; 87040; 83615; 85025; 80053; 93010; J3480; J3490

== ENCOUNTER → 2019-11-18 | Outpatient (CLI) | payer MEDICAID ==
--- NOTE | 2019-11-18 11:59 | RADIOLOGY REPORT (SQ) ---
EXAM DESCRIPTION: PHYSIO ARTERIAL LTD IMAGES COMPLETED DATE/TIME: 11/18/2019 11:49 am REASON FOR STUDY: LT HEEL ULCER L97.422 NON-PRS CHR ULCER OF LEFT HEEL AND MIDFOOT W FAT LAY COMPARISON: None. TECHNIQUE: Dynamic and static benitez scale and color images acquired of the lower extremity arteries. Additional selected spectral images recorded. ABIs recorded. LIMITATIONS: None. FINDINGS: RIGHT LEG: ABIS: Normal, over 1.0. INFLOW ARTERIES: Normal, no obstruction evident. FEMORAL ARTERIES:Multiphasic waveforms. Normal, no velocity elevation to suggest focal stenosis. Norm al color Doppler evaluation. No aneurysm. POPLITEAL ARTERY:Multiphasic waveforms. Normal, no velocity elevation to suggest focal stenosis. Norm al color Doppler evaluation. No aneurysm. PATENT TIBIOPERONEAL TRUNK AND 3 VESSEL RUNOFF: Yes, normal vessels. TBI: Not performed. OTHER: No other significant finding. LEFT LEG: ABIS: Normal, over 1.0. INFLOW ARTERIES: Normal, no obstruction evident. FEMORAL ARTERIES:Multiphasic waveforms. Normal, no velocity elevation to suggest focal stenosis. Norm al color Doppler evaluation. No aneurysm. POPLITEAL ARTERY:Multiphasic waveforms. Normal, no velocity elevation to suggest focal stenosis. Norm al color Doppler evaluation. No aneurysm. PATENT TIBIOPERONEAL TRUNK AND 3 VESSEL RUNOFF: Yes, normal vessels. TBI: Not performed. OTHER: No other significant finding. IMPRESSION: NORMAL BILATERAL LOWER EXTREMITY ARTERIAL DOPPLER WITH ABIs. COMMENT: TORIN NORMAL: Greater than 1.0 MINIMAL DISEASE: 0.9 to 1.0 CLAUDICATION: 0.5 to 0.9 SEVERE ARTERIAL DISEASE: Less than 0.5 [facility] NORMAL: Greater than 1.0 (1.2 If Heavy Calcifications) NORMAL TO MILD ISCHEMIA: 0.8 to 1.0 MODERATE ISCHEMIA: 0.4 to 0.8 SEVERE ISCHEMIA: Less than 0.4 TECHNICAL DOCUMENTATION: JOB ID: [id number] 2010 [employer]- All Rights Reserved Reading location - IP/workstation name: [email or web address]
--- NOTE | 2019-11-18 15:23 | RADIOLOGY REPORT (SQ) ---
EXAM DESCRIPTION: ARTERIAL LOWER EXTREM BILAT IMAGES COMPLETED DATE/TIME: 11/18/2019 11:49 am REASON FOR STUDY: LT HEEL ULCER L97.422 NON-PRS CHR ULCER OF LEFT HEEL AND MIDFOOT W FAT LAY COMPARISON: None. TECHNIQUE: Dynamic and static benitez scale and color images acquired of the lower extremity arteries. Additional selected spectral images recorded. ABIs recorded. LIMITATIONS: None. FINDINGS: RIGHT LEG: ABIS: Normal, over 1.0. INFLOW ARTERIES: Normal, no obstruction evident. FEMORAL ARTERIES:Multiphasic waveforms. Normal, no velocity elevation to suggest focal stenosis. Norm al color Doppler evaluation. No aneurysm. POPLITEAL ARTERY:Multiphasic waveforms. Normal, no velocity elevation to suggest focal stenosis. Norm al color Doppler evaluation. No aneurysm. PATENT TIBIOPERONEAL TRUNK AND 3 VESSEL RUNOFF: Yes, normal vessels. TBI: Not performed. OTHER: No other significant finding. LEFT LEG: ABIS: Normal, over 1.0. INFLOW ARTERIES: Normal, no obstruction evident. FEMORAL ARTERIES:Multiphasic waveforms. Normal, no velocity elevation to suggest focal stenosis. Norm al color Doppler evaluation. No aneurysm. POPLITEAL ARTERY:Multiphasic waveforms. Normal, no velocity elevation to suggest focal stenosis. Norm al color Doppler evaluation. No aneurysm. PATENT TIBIOPERONEAL TRUNK AND 3 VESSEL RUNOFF: Yes, normal vessels. TBI: Not performed. OTHER: No other significant finding. IMPRESSION: NORMAL BILATERAL LOWER EXTREMITY ARTERIAL DOPPLER WITH ABIs. COMMENT: TORIN NORMAL: Greater than 1.0 MINIMAL DISEASE: 0.9 to 1.0 CLAUDICATION: 0.5 to 0.9 SEVERE ARTERIAL DISEASE: Less than 0.[address] [facility] NORMAL: Greater than 1.0 (1.2 If Heavy Calcifications) NORMAL TO MILD ISCHEMIA: 0.8 to 1.0 MODERATE ISCHEMIA: 0.4 to 0.8 SEVERE ISCHEMIA: Less than 0.4 TECHNICAL DOCUMENTATION: JOB ID: [id number] 2010 [employer]- All Rights Reserved Reading location - IP/workstation name: [email or web address]
== END ==
LOC: SP 10:17
PROVIDERS: ATTEND Nurse Practitioner Family
DX: L97.422 Non-pressure chronic ulcer of left heel and midfoot with fat layer exposed (principal)
CPT/HCPCS: 93922; 93925

== ENCOUNTER → 2019-11-26 | Outpatient (CLI) | payer MEDICAID ==
--- NOTE | 2019-11-26 14:25 | RADIOLOGY REPORT (SQ) ---
EXAM DESCRIPTION: VENOUS UNILATERAL UPPER IMAGES COMPLETED DATE/TIME: 11/26/2019 1:57 pm REASON FOR STUDY: RUE PAIN M79.601 PAIN IN RIGHT ARM M79.89 OTHER SPECIFIED SOFT TISSUE DISORDERS COMPARISON: None. TECHNIQUE: Dynamic and static benitez scale and color images acquired of the right arm venous system. S elected spectral images acquired with additional compression and augmentation maneuvers. The contrala teral subclavian vein and internal jugular vein were also imaged. Images stored on PACS. LIMITATIONS: None. FINDINGS: INTERNAL JUGULAR VEIN: Normal phasicity, compression, augmentation. No visualized echogeni c material on benitez scale. No defects on color images. Comparison opposite side normal. SUBCLAVIAN VEIN: Normal compression, augmentation. No visualized echogenic material on benitez scale. No defects on color images. AXILLARY VEIN: Normal compression, augmentation. No visualized echogenic material on benitez scale. No d efects on color images. BRACHIAL VEIN: Normal compression, augmentation. No visualized echogenic material on benitez scale. No d efects on color images. BASILIC VEIN: Normal compression, augmentation. No visualized echogenic material on benitez scale. No de fects on color images. CEPHALIC VEIN: Normal compression, augmentation. No visualized echogenic material on benitez scale. No d efects on color images. OTHER: No other significant finding. CONTRALATERAL SUBCLAVIAN VEIN AND INTERNAL JUGULAR VEIN: Normal phasicity, compression and augmentation. No visualized echogenic material on benitez scale. No de fects on color images. IMPRESSION: NO EVIDENCE DVT OR SVT IN THE RIGHT ARM. TECHNICAL DOCUMENTATION: JOB ID: [id number] 2010 [employer]- All Rights Reserved Reading location - IP/workstation name: [email or web address]
== END ==
LOC: SP 13:02
PROVIDERS: ATTEND Physician Assistant Medical
DX: L97.422 Non-pressure chronic ulcer of left heel and midfoot with fat layer exposed (principal)
CPT/HCPCS: 93971

== ENCOUNTER 2019-12-26 21:47 | Emergency (ER) | payer MEDICAID ==
[2019-12-26 23:57] LABS: INTERNATIONAL RATION (INR) 0.92; PROTHROMBIN TIME 12.4 SEC (11.4-15.4)
[2019-12-26 23:58] LABS: ALBUMIN 4.3 g/dL (3.5-5.0); ALCOHOL 299 mg/dL (NONE DETECTED); ALKALINE PHOSPHATASE 84 U/L (38-126); ANION GAP 10 (5-19); ASPARTATE AMINO TRANSFERASE 28 U/L (17-59); BILIRUBIN,TOTAL 0.4 mg/dL (0.2-1.3); BLOOD UREA NITROGEN 18 mg/dL (7-20); CALCIUM 8.9 mg/dL (8.4-10.2); CARBON DIOXIDE 21 mmol/L (22-30); CHLORIDE 100 mmol/L (98-107); GLUCOSE 97 mg/dL (75-110); PARTIAL THROMBOPLASTIN TIME 31.1 SEC (23.5-35.8); POTASSIUM 5.4 mmol/L (3.6-5.0); TOTAL PROTEIN 7.5 g/dL (6.3-8.2)
--- NOTE | 2019-12-27 00:04 | ER Document Report ---
Entered by SHASHANK JON SCRIBE 12/26/19 [id number] Acting as scribe for:TAHIRA BRIDGES IV, MD ED Respiratory Problem - General Chief Complaint: Shortness Of Breath Stated Complaint: BREATHING DIFFICULTIES Time Seen by Provider: 12/26/19 23:14 Primary Care Provider: RO PINON PA-C [Primary Care Provider] - Follow up as needed Mode of Arrival: Medic Information source: Patient Notes: This 54 year old male patient with a history of asthma and COPD brought in by EMS presents to the ED today with complaints of shortness or breath and cough that started x2 hours prior to arrival. 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 He reports that he used an albuterol inhaler at home prior to arrival with mild relief. He notes that he had chemotherapy x2 weeks ago and his next appointment is on 12/31/2019. Denies fever. Patient is refusing a breathing treatment at this time, but is requesting a Covid-19 test. TRAVEL OUTSIDE OF THE [place] IN LAST 30 DAYS: No - Related Data Allergies/Adverse Reactions: No Known Allergies Allergy (Verified 11/06/19 14:08) Past Medical History - Social History Smoking Status: Never Smoker Cigarette use (# per day): No Chew tobacco use (# tins/day): Yes Smoking Education Provided: No Frequency of alcohol use: Occasional Drug Abuse: None Lives with: Spouse/Significant other Family History: Reviewed & Not Pertinent, Malignancy Patient has suicidal ideation: No Patient has homicidal ideation: No - Past Medical History Cardiac Medical History: Reports: Hx Hypertension Pulmonary Medical History: Reports: Hx Asthma, Hx Bronchitis, Hx COPD, Hx Pneumonia, Hx Respiratory Failure Malignancy Medical History: Reports Hx Lymphoma - T-cell Musculoskeletal Medical History: Reports Hx Musculoskeletal Trauma Psychiatric Medical History: Reports: Hx Bipolar Disorder, Hx Depression Past Surgical History: Reports: Hx Kidney (Renal Surgery) - unilateral left adrenalectomy 08/23, Hx Orthopedic Surgery - plate/screws in toe - Immunizations Hx Diphtheria, Pertussis, Tetanus Vaccination: Yes Review of Systems - Review of Systems Constitutional: See HPI. denies: Fever EENT: No symptoms reported Cardiovascular: No symptoms reported Respiratory: See HPI, Cough, Short of breath Gastrointestinal: No symptoms reported Genitourinary: No symptoms reported Male Genitourinary: No symptoms reported Musculoskeletal: No symptoms reported Skin: No symptoms reported Hematologic/Lymphatic: No symptoms reported Neurological/Psychological: No symptoms reported -: Yes All other systems reviewed and negative Physical Exam - Vital signs Vitals: Pulse Ox 96 12/26/19 21:48 Interpretation: Normal - General General appearance: Alert In distress: None - HEENT Head: Normocephalic, Atraumatic Eyes: Normal Pupils: PERRL - Respiratory Respiratory status: No respiratory distress Chest status: Nontender Breath sounds: Normal Chest palpation: Normal - Cardiovascular Rhythm: Regular Heart sounds: Normal auscultation Murmur: No Friction rub: No Gallop: None auscultated - Abdominal Inspection: Normal Distension: No distension Bowel sounds: Normal Tenderness: Nontender - Abdomen soft Organomegaly: No organomegaly - Back Back: Normal, Nontender - Extremities General upper extremity: Normal inspection General lower extremity: Normal inspection - Neurological Neuro grossly intact: Yes Orientation: AAOx4 - Psychological Associated symptoms: Normal affect, Normal mood - Skin Skin Temperature: Warm Skin Moisture: Dry Skin Color: Normal Course - Re-evaluation Re-evalutation: 12/27/19 02:16 Results of ED MSE discussed with patient. All questions were answered prior to discharge. Emergency signs and symptoms, reasons to return to the emergency department discussed with patient. - Vital Signs Vital signs: Temp Pulse Resp BP Pulse Ox 98.2 F 105 H 16 116/62 96 12/26/19 22:08 12/26/19 22:08 12/27/19 00:01 12/27/19 00:01 12/27/19 00:01 - Laboratory Result Diagrams: 12/26/19 21:25 12/26/19 21:25 Laboratory results interpreted by me: 12/26/19 12/26/19 21:25 21:25 WBC 13.7 H RBC 3.58 L Hgb 11.0 L Hct 31.4 L RDW 25.9 H Plt Count 142 L Band Neutrophils % 1 L Abs Neuts (Manual) 10.1 H Sodium 131.1 L Potassium 5.4 H Carbon Dioxide 21 L - Diagnostic Test Radiology reviewed: Reports reviewed Discharge - Discharge Clinical Impression: Dyspnea Qualifiers: Dyspnea type: unspecified Qualified Code(s): R06.00 - Dyspnea, unspecified Elevated blood alcohol level Qualifiers: Blood alcohol level: 240 mg/100 ml or more Qualified Code(s): Y90.8 - Blood alcohol level of 240 mg/100 ml or more Condition: Good Disposition: HOME, SELF-CARE Additional Instructions: Return to the Emergency Department without delay if any worse. You have been tested for COVID-19. Is recommended that she do self quarantine for a minimum of 14 days other than going to your scheduled doctor appointments. HOME CARE INSTRUCTIONS & INFORMATION: Thank you for choosing us for your medical needs. We hope you're satisfied with the care you received. After you leave, you must properly care for your problem and, at the same time, observe its progress. Any condition can change. Some illnesses can change rapidly over hours or days. If your condition worsens, return to the Emergency Department or see your physician promptly. ABOUT YOUR X-RAYS AND EKG'S: If you had an EKG or X-rays taken, they have been read by the Emergency Physician. The X-rays and EKG's will also be read by a Radiologist or [employer] within 24 hours. If discrepancies are noted, you will be notified by telephone. Please be certain the ED has a correct telephone number & address where you can be reached. Also, realize that some fractures or abnormalities do not show up on initial X-rays. If your symptoms continue, see your physician. ABOUT YOUR LABORATORY TEST: If you had laboratory tests, the results have been reviewed by the Emergency Physician. Some test results (for example cultures) may not be available for several days. You will be contacted if any test result shows you need additional treatment. Please be certain the ED has a correct telephone number and address where you can be reached. ABOUT YOUR MEDICATIONS: You will receive instructions on how to take your medicine on the prescription label you receive. Additional information may be provided by the Pharmacy. If you have questions afterwards, call the ED for clarification or further instructions. Some prescribed medications may cause drowsiness. Do not perform tasks such as driving a car or operating machinery without consulting your Pharmacist. If you feel you need a refill of pain medication, your condition will need re-evaluation. Please do not call for a refill of any medication. ABOUT YOUR SIGNATURE: Signature of this document acknowledges to followin. Understanding that you received emergency treatment and that you may be released before al medical problems are known or treated. Please be certain the ED has a correct phone number & address where you can be reached. 2. Acknowledgement that you will arrange for follow-up care as recommended. 3. Authorization for the Emergency Physician to provide information to your follow-up Physician in order to maximize your care. AT ANY TIME, IF YOUR SYMPTOMS CHANGE SIGNIFICANTLY OR WORSEN OR YOU DEVELOP NEW SYMPTOMS, RETURN TO THE EMERGENCY DEPARTMENT IMMEDIATELY FOR RE-EVALUATION. OUR GOAL IS TO PROVIDE EXCELLENT MEDICAL CARE! WE HOPE THAT WE HAVE MET YOUR EXPECTATIONS DURING YOUR EMERGENCY DEPARTMENT VISIT AND THAT YOU FEEL YOU HAVE RECEIVED EXCELLENT CARE! Dyspnea, Nonspecific You were evaluated for shortness of breath, or dyspnea. Dyspnea has many causes, and some are more serious than others. Sometimes it's impossible to diagnose the cause of dyspnea with the tests that are available on an emergency basis. Based on our evaluation today, you do not need hospitalization now. We found no evidence of pneumonia, collapsed lung, blood clots in the lung, tumors, or heart failure. Causes of non-specific dyspnea can include asthma or bronchospasm, hyperventilation, emotional distress, heart disease, emphysema, fibrosis of the lung, and stiffness of the chest wall. In healthy individuals with a single episode, it's sometimes reasonable to do nothing but wait to see if the problem occurs again. Additional tests used to evaluate dyspnea can include cardiac stress testing, echocardiography, pulmonary function testing, CAT scan of the chest, bronchoscopy or pulmonary biopsy. Return if shortness of breath persists or worsens, or if you develop chest pain, fever, cough, confusion, or fainting. Referrals: RO PINON PA-C [Primary Care Provider] - Follow up as needed MARYURI CACERES MD [ACTIVE STAFF] - 12/31/19 I personally performed the services described in the documentation, reviewed and edited the documentation which was dictated to the scribe in my presence, and it accurately records my words and actions.
[2019-12-27 00:07] LABS: HEMATOCRIT 31.4 % (37.9-51.0); MEAN CORPUSCULAR HEMOGLOBIN 30.8 pg (27.0-33.4); MEAN CORPUSCULAR HGB CONC 35.1 g/dL (32.0-36.0); MEAN CORPUSCULAR VOLUME 88 fl (80-97); PLATELET COUNT 142 10^3/uL (150-450); RED BLOOD COUNT 3.58 10^6/uL (4.35-5.55); RED CELL DISTRIBUTION WIDTH 25.9 % (11.5-14.0); WHITE BLOOD COUNT 13.7 10^3/uL (4.0-10.5)
[2019-12-27 00:31] LABS: ABSOLUTE LYMPHOCYTES# (MANUAL) 2.2 10^3/uL (0.5-4.7); BAND NEUTROPHILS % (MANUAL) 1 % (3-5); BASOPHILS % (MANUAL) 1 % (0-2); EOSINOPHILS % (MANUAL) 2 % (0-6); LYMPHOCYTES % (MANUAL) 16 % (13-45); MONOCYTES % (MANUAL) 7 % (3-13); SEGMENTED NEUTROPHILS % (MAN) 73 % (42-78); TOTAL CELLS COUNTED 100
[2019-12-27 00:35] LABS: ANISOCYTOSIS 3+; OVALOCYTES 1+; POLYCHROMASIA SLIGHT
[2019-12-27 00:37] LABS: SCHISTOCYTES SLIGHT
[2019-12-27 00:40] LABS: TEAR DROP CELLS 1+
[2019-12-27 00:42] LABS: PLATELET COMMENT DECREASED
--- NOTE | 2019-12-27 01:43 | RADIOLOGY REPORT (SQ) ---
EXAM DESCRIPTION: XR CHEST 1 VIEW COMPLETED DATE/TME: 12/26/2019 23:36 CLINICAL HISTORY: 54 years Male, cough COMPARISON:Oct 11 2019 NUMBER OF VIEWS/TECHNIQUE: 1/AP FINDINGS: Adequate lung volume, small linear subsegmental atelectasis or scar of the right midlung field, normal cardiac silhouette, and intact bony thorax.Right PICC appears adequate. IMPRESSION: Small atelectasis or scar. Interval improvement.
[2019-12-27 02:43] VITALS: BP 138/79
== END 2019-12-27 02:41 | disposition home or self-care (01) ==
LOC: ER 21:47
DX: J44.9 Chronic obstructive pulmonary disease, unspecified (principal); R06.02 Shortness of breath; R05 Cough; I10 Essential (primary) hypertension; C85.90 Non-Hodgkin lymphoma, unspecified, unspecified site; Z79.899 Other long term (current) drug therapy; Z72.0 Tobacco use; Z20.828 Contact with and (suspected) exposure to other viral communicable diseases
CPT/HCPCS: 36415; 71045; 80053; 80307; 85025; 85610; 85730; 87040; 87635; 99285

== ENCOUNTER → 2020-01-13 | Outpatient (CLI) | payer MEDICAID ==
--- NOTE | 2020-01-13 12:35 | RADIOLOGY REPORT (SQ) ---
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 RENAL FUNCTION: Creatinine 0.8 TECHNIQUE: CT scan of the chest performed using helical scanning technique with dynamic intravenous contrast injection. Images reviewed with lung, soft tissue and bone windows. Reconstructed coronal a nd sagittal MPR images reviewed. All images stored on PACS. CT scan of the abdomen and pelvis performed with intravenous and without oral contrastusing helical s tobin technique with dynamic intravenous contrast injection. Images reviewed with lung, soft tissu e and bone windows. Reconstructed coronal and sagittal MPR images reviewed. Delayed images for eval uation of the urinary system also acquired and evaluated. All images stored on PACS. All CT scanners at this facility use dose modulation, iterative reconstruction, and/or weight based d osing when appropriate to reduce radiation dose to as low as reasonably achievable (ALARA). [facility]: Dose Right [facility]: CareDose [facility]: Dose Right [facility]: Teradose 4D [facility]: [employer] RADIATION DOSE: CT Rad equipment meets quality standard of care and radiation dose reduction techniq ues were employed. CTDIvol: 4.5 - 4.6 mGy. DLP: 604 mGy-cm. . LIMITATIONS: None. FINDINGS: CHEST: LUNGS AND PLEURA: No acute infiltrates. No pleural effusion or pneumothorax. There are peripheral bandlike areas of scarring throughout both lungs, less prominent than the diffus e bilateral patchy peripheral infiltrates seen 10/06/2019 CT angio chest. HILAR AND MEDIASTINAL STRUCTURES: No identified masses or abnormal nodes. HEART AND VASCULAR STRUCTURES: No aneurysm or dissection. No central pulmonary emboli. No pericardi al effusion. HARDWARE: Right-sided permanent central line tip superior vena cava THYROID AND OTHER SOFT TISSUES: Decrease in bilateral axillary adenopathy compared to CT chest 10/07/19 20 as follows: Right axillary lymph node 1.4 x 0.9 cm axial image 19 (was 2.1 x 1.5 cm)_ Left axillary lymph node 1.8 x 1 cm axial image 13 (was 3.5 x 2 cm) BONES: No significant finding. OTHER: No other significant finding. ABDOMEN AND PELVIS: LIVER: Normal size. No masses. No dilated ducts. SPLEEN: 14 x 14 cm, similar compared to abdomen and pelvis 10/07/2019 PANCREAS: No masses. No significant calcifications. No adjacent inflammation or peripancreatic fluid collections. Pancreatic duct not dilated. GALLBLADDER: No identified stones by CT criteria. No inflammatory changes to suggest cholecystitis. ADRENAL GLANDS: Right adrenal gland unremarkable. Left surgically absent . RIGHT KIDNEY AND URETER: No solid masses. No significant calcification. No hydronephrosis or hydroure ter. LEFT KIDNEY AND URETER: No solid masses. No significant calcification. No hydronephrosis or hydrouret er. AORTA AND VESSELS: No aneurysm. No dissection. Renal arteries, SMA, celiac without stenosis. RETROPERITONEUM: Enlarged left external iliac lymph node 2 x 1.3 cm (was 3.4 x 2.6 cm on 10/07/2019). BOWEL AND PERITONEAL CAVITY: No masses or inflammatory changes. No free fluid or peritoneal masses. APPENDIX: Not identified ABDOMINAL WALL: No masses. No hernias. PELVIS: No mass or free fluid. Normal bladder. Right inguinal lymph node 1.4 x 0.7 cm (was 2.4 x 1. 3 cm on 10/07/2019) Left inguinal lymph node 1.6 x 1 cm (was 2.5 x 1.4 cm on 10/07/2019). BONES: No significant or acute findings. OTHER: No other significant finding. IMPRESSION: Treatment response with decreased adenopathy over the chest abdomen pelvis Stable splenomegaly TECHNICAL DOCUMENTATION: JOB ID: [id number] Quality ID # [id number]: Final reports with documentation of one or more dose reduction techniques (e.g., Au tomated exposure control, adjustment of the mA and/or kV according to patient size, use of iterative reconstruction technique) 2010 [employer]- All Rights Reserved Reading location - IP/workstation name: [email or web address]
== END ==
LOC: RAD 09:37
PROVIDERS: ATTEND Physician Assistant Medical
DX: C84.48 Peripheral T-cell lymphoma, not elsewhere classified, lymph nodes of multiple sites (principal); R16.1 Splenomegaly, not elsewhere classified
CPT/HCPCS: 71260; 74177

== ENCOUNTER 2020-01-21 23:13 | Emergency (ER) | payer MEDICAID ==
--- NOTE | 2020-01-21 23:21 | ER Document Report ---
ED General - General Stated Complaint: FALL LACERACTION Time Seen by Provider: 01/21/20 23:16 Primary Care Provider: RO PINON PA-C [Primary Care Provider] - Follow up as needed Notes: 54-year-old male with active cancer got chemo today presents with right cheondoism/eyebrow laceration after fall from bed. A week out of bed and fell on his head. No LOC no blood thinners. Mild headache mild neck pain. No syncope. No neurologic symptoms. Bleeding controlled. TRAVEL OUTSIDE OF THE [place] IN LAST 30 DAYS: No - Related Data Allergies/Adverse Reactions: No Known Allergies Allergy (Verified 11/06/19 14:08) Past Medical History - General Information source: Patient - Social History Smoking Status: Unknown if Ever Smoked Family History: Reviewed & Not Pertinent, Malignancy - Past Medical History Cardiac Medical History: Reports: Hx Hypertension Denies: Hx Atrial Fibrillation, Hx Coronary Artery Disease, Hx DVT, Hx Heart Attack, Hx Hypercholesterolemia, Hx Peripheral Vascular Disease, Hx Pulmonary Embolism Pulmonary Medical History: Reports: Hx Asthma, Hx Bronchitis, Hx COPD, Hx Pneumonia, Hx Respiratory Failure Neurological Medical History: Denies: Hx Seizures Endocrine Medical History: Denies: Hx Diabetes Mellitus Type 1, Hx Diabetes Mellitus Type 2, Hx Hyperthyroidism, Hx Hypothyroidism Renal/ Medical History: Denies: Hx End Stage Renal Disease, Hx Peritoneal Dialysis Malignancy Medical History: Reports Hx Lymphoma - T-cell GI Medical History: Denies: Hx Cirrhosis, Hx Crohn's Disease, Hx Gastroesophageal Reflux Disease, Hx Hiatal Hernia, Hx Ulcerative Colitis Musculoskeletal Medical History: Denies Hx Arthritis, Denies Hx Fibromyalgia, Denies Hx Gout, Reports Hx Musculoskeletal Trauma Skin Medical History: Denies Hx Eczema, Denies Hx Psoriasis Psychiatric Medical History: Reports: Hx Bipolar Disorder, Hx Depression Past Surgical History: Reports: Hx Kidney (Renal Surgery) - unilateral left adrenalectomy 08/23, Hx Orthopedic Surgery - plate/screws in toe, Other - Left adrenalectomy - Immunizations Hx Diphtheria, Pertussis, Tetanus Vaccination: Yes Review of Systems - Review of Systems Notes: REVIEW OF SYSTEMS GEN: Denies fever, chills, weight loss ENT: Denies sore throat, nasal discharge, ear pain EYES: Denies blurry vision, eye pain, discharge CV: Denies chest pain, palpitations, edema RESP: Denies cough, shortness of breath, wheezing GI: Denies abdominal pain, nausea, vomiting, diarrhea MSK: Neck pain denies joint pain/swelling, edema, SKIN: Denies rash, skin lesions LYMPH: Denies swollen glands/lymph nodes NEURO: Mild headache, denies focal weakness or numbness, dizziness PSYCH: Denies depression, suicidal or homicidal ideation PHYSICAL EXAMINATION General: No acute distress, well-nourished Head: 2 cm laceration right cheondoism/eyebrow laterally to the eyebrow, normocephalic ENT: Mouth normal, oropharynx moist, no exudates or tonsillar enlargement Eyes: Conjunctiva normal, pupils equal, lids normal Neck: No JVD, supple, no guarding CVS: Normal rate, regular rhythm, no murmurs Resp: No resp distress, equal and normal breath sounds bilaterally GI: Nondistended, soft, no tenderness to palpation, no rebound or guarding Ext: No deformities, no edema, normal range of motion in upper and lower ext Back: No CVA or midline TTP Skin: No rash, warm Lymphatic: No lymphadeopathy noted Neuro: Awake, alert. Face symmetric. GCS 15. Physical Exam - Vital signs Vitals: Temp 97.7 F 01/21/20 23:44 Course - Re-evaluation Re-evalutation: 01/22/20 00:21 Fall out of bed with head trauma no blood thinners GCS 15. Negative CT head and C-spine Cleared collar No other injuries noted Dermabond laceration Immunocompromise but no symptomsdischarge home. I have discussed with the patient there likely diagnosis, aftercare plan, follow-up plans and my usual and customary return precautions. They verbalized understanding of this. - Vital Signs Vital signs: Temp Pulse Resp BP Pulse Ox 97.7 F 84 16 117/72 99 01/22/20 00:03 01/22/20 00:03 01/22/20 00:03 01/22/20 00:03 01/22/20 00:03 - Diagnostic Test Radiology reviewed: Image reviewed, Reports reviewed Procedures - Laceration/Wound Repair Right Upper Face Wound length (cm): 2 Wound's Depth, Shape: Superficial Laceration pre-procedure: Chloraprep applied Wound explored: Clean Irrigated w/ Saline (mLs): 30 Wound Repaired With: Steri-strips, Dermabond - Quadrant Steri-Strip x3. Dermabond. Discharge - Discharge Clinical Impression: Fall from bed, Laceration of skin of scalp Condition: Good Disposition: HOME, SELF-CARE Instructions: Laceration Care ([facility]) Additional Instructions: The glue and strips will fall off on their own within 5 days. Referrals: RO PINON PA-C [Primary Care Provider] - Follow up as needed
--- NOTE | 2020-01-21 23:50 | RADIOLOGY REPORT (SQ) ---
INDICATION: Fall neck pain. COMPARISON: None CORRELATION: None TECHNIQUE: Noncontrast spiral axial CT images were obtained from the skull base to vertex. Noncontrast spiral axial CT imaging through the cervical spine with multiplanar reconstructions. This exam was performed according to our departmental dose-optimization program, which includes automated exposure control, adjustment of the mA and/or kV according to patient size and/or use of iterative reconstruction techniques. FINDINGS: BRAIN: There is no evidence of acute intracranial hemorrhage, midline shift, mass effect or mass lesion. Floyd-white differentiation is normal. There is no evidence of acute large territory infarct. Ventricles and extracerebral spaces are within normal limits, for age. The visualized paranasal sinuses are grossly clear. The orbits and eyeballs are unremarkable. The mastoid air cells are clear. Skull base and calvarium appear intact. CERVICAL SPINE: No acute displaced fracture is identified of the cervical spine. Alignment is anatomic. No focal alignment abnormality is identified. The uncovertebral joints and facets demonstrate significant osteoarthritis.. Surrounding soft tissues of the neck are unremarkable. IMPRESSION: No acute intracranial process is identified. No acute bony injury is seen to the cervical spine. Significant osteoarthritis
[2020-01-22 00:06] VITALS: BP 117/72
== END 2020-01-22 00:54 | disposition home or self-care (01) ==
LOC: ER 23:13
DX: S01.81XA Laceration without foreign body of other part of head, initial encounter (principal); S01.01XA Laceration without foreign body of scalp, initial encounter; M54.2 Cervicalgia; W06.XXXA Fall from bed, initial encounter; Y93.89 Activity, other specified; I10 Essential (primary) hypertension; J44.9 Chronic obstructive pulmonary disease, unspecified
CPT/HCPCS: 70450; 72125; 99283

== ENCOUNTER 2020-02-03 22:07 | Emergency (ER) | payer MEDICAID ==
[2020-02-03 22:30] VITALS: BP 123/73
[2020-02-04] MEDS ORDERED: RINGERS SOLUTION,LACTATED 1,000 ML IV ONE (00:01)
--- NOTE | 2020-02-04 00:03 | ER Document Report ---
ED Medical Screen (RME) - General Chief Complaint: Abdominal Cramping Stated Complaint: VEIN SHOWING NEXT TO PORT Time Seen by Provider: 02/03/20 23:58 Primary Care Provider: RO PINON PA-C [Primary Care Provider] - Follow up as needed Mode of Arrival: Wheelchair Information source: Patient Notes: HPI; 54-year-old male past medical history significant for T-cell lymphoma presents to the emergency room complaining of abdominal and right thigh cramping for the past 2 days. Denies any nausea or vomiting. No fevers. States that he noticed a pain across his chest that seem to be more prominent. Denies chest pain, no shortness of breath, no difficulty breathing. PE: Alert and oriented x3. Mild distress noted. Lungs: Clear to auscultation without rales, rhonchi, wheezes. Heart: Tachycardic without murmurs, rubs, gallops. Abdomen is soft distended nontender to palpation. Active bowel sounds x4. Unable to do full assessment in triage. I have greeted and performed a rapid initial assessment of this patient. A comprehensive ED assessment and evaluation of the patient, analysis of test results and completion of the medical decision making process will be conducted by additional ED providers. I have specifically instructed the patient or family members with the patient to immediately return to any nursing staff should anything change in the patient's condition or with their chief complaint. TRAVEL OUTSIDE OF THE [place] IN LAST 30 DAYS: No - Related Data Allergies/Adverse Reactions: No Known Allergies Allergy (Verified 02/03/20 23:56) Past Medical History - Social History Frequency of alcohol use: None Drug Abuse: None - Past Medical History Cardiac Medical History: Reports: Hx Hypertension Denies: Hx Atrial Fibrillation, Hx Coronary Artery Disease, Hx DVT, Hx Heart Attack, Hx Hypercholesterolemia, Hx Peripheral Vascular Disease, Hx Pulmonary Embolism Pulmonary Medical History: Reports: Hx Asthma, Hx Bronchitis, Hx COPD, Hx Pneumonia, Hx Respiratory Failure Neurological Medical History: Denies: Hx Seizures Endocrine Medical History: Denies: Hx Diabetes Mellitus Type 1, Hx Diabetes Mellitus Type 2, Hx Hyperthyroidism, Hx Hypothyroidism Renal/ Medical History: Denies: Hx End Stage Renal Disease, Hx Peritoneal Dial ysis Malignancy Medical History: Reports Hx Lymphoma - T-cell GI Medical History: Denies: Hx Cirrhosis, Hx Crohn's Disease, Hx Gastroesophageal Reflux Disease, Hx Hiatal Hernia, Hx Ulcerative Colitis Musculoskeltal Medical History: Denies Hx Arthritis, Denies Hx Fibromyalgia, Denies Hx Gout, Reports Hx Musculoskeletal Trauma Skin Medical History: Denies Hx Eczema, Denies Hx Psoriasis Psychiatric Medical History: Reports: Hx Bipolar Disorder, Hx Depression Past Surgical History: Reports: Hx Kidney (Renal Surgery) - unilateral left adrenalectomy 08/23, Hx Orthopedic Surgery - plate/screws in toe, Other - Left adrenalectomy - Immunizations Hx Diphtheria, Pertussis, Tetanus Vaccination: Yes Physical Exam - Vital signs Vitals: Temp Pulse BP Pulse Ox 97.6 F 105 H 123/73 96 02/03/20 22:27 02/03/20 22:27 02/03/20 22:27 02/03/20 22:27 Course - Vital Signs Vital signs: Temp Pulse Resp BP Pulse Ox 97.6 F 105 H 123/73 96 02/03/20 23:56 02/03/20 22:27 02/03/20 22:27 02/03/20 22:27 Doctor's Discharge - Discharge Referrals: RO PINON PA-C [Primary Care Provider] - Follow up as needed
[2020-02-04 00:30] LABS: HEMOGLOBIN 12.5 g/dL (13.5-17.0); MEAN CORPUSCULAR HGB CONC 34.6 g/dL (32.0-36.0); MEAN CORPUSCULAR VOLUME 92 fl (80-97); PLATELET COUNT 184 10^3/uL (150-450); RED CELL DISTRIBUTION WIDTH 16.1 % (11.5-14.0); WHITE BLOOD COUNT 12.1 10^3/uL (4.0-10.5)
[2020-02-04 00:57] LABS: ABSOLUTE LYMPHOCYTES# (MANUAL) 1.9 10^3/uL (0.5-4.7); ABSOLUTE MONOCYTES # (MANUAL) 1.1 10^3/uL (0.1-1.4); BASOPHILS % (MANUAL) 0 % (0-2); EOSINOPHILS % (MANUAL) 0 % (0-6); LYMPHOCYTES % (MANUAL) 16 % (13-45); MONOCYTES % (MANUAL) 9 % (3-13); NUCLEATED RED BLOOD CELLS 1 /100 WBC (0); SEGMENTED NEUTROPHILS % (MAN) 51 % (42-78); TOTAL CELLS COUNTED 100
[2020-02-04 00:59] LABS: ANISOCYTOSIS 1+; PLATELET COMMENT ADEQUATE; TOXIC GRANULATION 1+; TOXIC VACUOLATION PRESENT
[2020-02-04 01:00] LABS: BAND NEUTROPHILS % (MANUAL) 14 % (3-5); METAMYELOCYTES % (MANUAL) 4 % (0-1); MYELOCYTES % (MANUAL) 3 % (0); PROMYELOCYTES % (MANUAL) 3 % (0)
[2020-02-04 01:04] LABS: APPEARANCE,URINE CLEAR; BILIRUBIN,URINE NEGATIVE (NEGATIVE); COLOR,URINE YELLOW; GLUCOSE, URINE NEGATIVE (NEGATIVE); KETONES,URINE NEGATIVE (NEGATIVE); LEUKOCYTE ESTERASE,URINE NEGATIVE (NEGATIVE); NITRITE,URINE NEGATIVE (NEGATIVE); PROTEIN,URINE NEGATIVE (NEGATIVE); URINE SPECIFIC GRAVITY 1.009; UROBILINOGEN,URINE NEGATIVE mg/dL (<2.0)
== END 2020-02-04 04:40 | disposition left against medical advice (07) ==
LOC: ER 22:07
DX: R10.9 Unspecified abdominal pain (principal); M79.651 Pain in right thigh; I10 Essential (primary) hypertension
CPT/HCPCS: 36415; 81001; 82553; 85025; 99281

== ENCOUNTER 2020-02-04 22:04 | Emergency (ER) | payer MEDICAID ==
--- NOTE | 2020-02-05 00:33 | ER Document Report ---
ED Medical Screen (RME) - General Chief Complaint: Leg Pain Stated Complaint: RIGHT LEG PAIN Time Seen by Provider: 02/05/20 00:29 Primary Care Provider: RO PINON PA-C [Primary Care Provider] - Follow up as needed Mode of Arrival: Medic Information source: Patient Notes: HPI; 54-year-old male past medical history significant for T-cell lymphoma resents emergency room with persistent right upper thigh pain and cramping. Patient was here yesterday complaining of abdominal cramping and right leg cramping for the past 2 to 3 days. Also states he noticed a vein across his chest that seemed more prominent. Patient was sent in yesterday for possible dehydration. Patient left prior to getting his test results. States leg pain is gotten progressively worse. States his oncologist patient to rule out DVT. Patient denies any previous history of DVTs or PEs. No recent travel. No risk factors for DVTs. PE: Alert and oriented x3. Mild distress noted. Lungs: Clear to auscultation without rales, rhonchi, wheezes. Heart: Regular rate and rhythm without murmurs, rubs, gallops. Patient is ambulatory with a steady gait. There is tenderness on palpation to the right upper thigh. There is no obvious deformity noted. I have greeted and performed a rapid initial assessment of this patient. A comprehensive ED assessment and evaluation of the patient, analysis of test results and completion of the medical decision making process will be conducted by additional ED providers. I have specifically instructed the patient or family members with the patient to immediately return to any nursing staff should anything change in the patient's condition or with their chief complaint. TRAVEL OUTSIDE OF THE [place] IN LAST 30 DAYS: No - Related Data Allergies/Adverse Reactions: No Known Allergies Allergy (Verified 02/03/20 23:56) Past Medical History - Past Medical History Cardiac Medical History: Reports: Hx Hypertension Denies: Hx Atrial Fibrillation, Hx Coronary Artery Disease, Hx DVT, Hx Heart Attack, Hx Hypercholesterolemia, Hx Peripheral Vascular Disease, Hx Pulmonary Embolism Pulmonary Medical History: Reports: Hx Asthma, Hx Bronchitis, Hx COPD, Hx Pneumonia, Hx Respiratory Failure Neurological Medical History: Denies: Hx Seizures Endocrine Medical History: Denies: Hx Diabetes Mellitus Type 1, Hx Diabetes Mellitus Type 2, Hx Hyperthyroidism, Hx Hypothyroidism Renal/ Medical History: Denies: Hx End Stage Renal Disease, Hx Peritoneal Dialysis Malignancy Medical History: Reports Hx Lymphoma - T-cell GI Medical History: Denies: Hx Cirrhosis, Hx Crohn's Disease, Hx Gastroesophageal Reflux Disease, Hx Hiatal Hernia, Hx Ulcerative Colitis Musculoskeltal Medical History: Denies Hx Arthritis, Denies Hx Fibromyalgia, Denies Hx Gout, Reports Hx Musculoskeletal Trauma Skin Medical History: Denies Hx Eczema, Denies Hx Psoriasis Psychiatric Medical History: Reports: Hx Bipolar Disorder, Hx Depression Past Surgical History: Reports: Hx Kidney (Renal Surgery) - unilateral left adrenalectomy 08/23, Hx Orthopedic Surgery - plate/screws in toe, Other - Left adrenalectomy - Immunizations Hx Diphtheria, Pertussis, Tetanus Vaccination: Yes Physical Exam - Vital signs Vitals: Temp Pulse Resp BP Pulse Ox 98.5 F 98 16 143/68 H 100 02/04/20 22:17 02/04/20 22:17 02/04/20 22:17 02/04/20 22:17 02/04/20 22:17 Course - Vital Signs Vital signs: Temp Pulse Resp BP Pulse Ox 98.5 F 98 16 143/68 H 100 02/04/20 22:17 02/04/20 22:17 02/04/20 22:17 02/04/20 22:17 02/04/20 22:17 Doctor's Discharge - Discharge Referrals: RO PINON PA-C [Primary Care Provider] - Follow up as needed
--- NOTE | 2020-02-05 05:14 | ER Document Report ---
ED Extremity Problem, Lower - General Mode of Arrival: Medic TRAVEL OUTSIDE OF THE [place] IN LAST 30 DAYS: No <DIANNE MILLS - Last Filed: 02/05/20 08:20> <[email or web address] - Last Filed: 02/05/20 09:50> - General Chief Complaint: Leg Pain Stated Complaint: RIGHT LEG PAIN Time Seen by Provider: 02/05/20 00:29 Primary Care Provider: RO PINON PA-C [ALLIED HEALTH PROFESSIONAL] - Follow up as needed Notes: Patient is a 4-year-old male who presents to the emergency department with a chief complaint of right upper thigh pain and cramping. Patient states that he has been walking his dog. States that the pain has been going on for the past 2 to 3 days. Patient was seen yesterday in triage, but ended up leaving. Patient denies any shortness of breath, difficulty breathing, or any other symptoms. Denies any travel. Patient does have T-cell lymphoma and is currently under chemotherapy. His oncologist wants to rule out a DVT. (DIANNE MILLS) - Related Data Allergies/Adverse Reactions: No Known Allergies Allergy (Verified 02/03/20 23:56) Past Medical History - General Information source: Patient - Social History Smoking Status: Former Smoker Chew tobacco use (# tins/day): Yes Family History: Reviewed & Not Pertinent, Malignancy Patient has homicidal ideation: No - Past Medical History Cardiac Medical History: Reports: Hx Hypertension Denies: Hx Atrial Fibrillation, Hx Coronary Artery Disease, Hx DVT, Hx Heart Attack, Hx Hypercholesterolemia, Hx Peripheral Vascular Disease, Hx Pulmonary Embolism Pulmonary Medical History: Reports: Hx Asthma, Hx Bronchitis, Hx COPD, Hx Pneumo fausto, Hx Respiratory Failure Neurological Medical History: Denies: Hx Seizures Endocrine Medical History: Denies: Hx Diabetes Mellitus Type 1, Hx Diabetes Mellitus Type 2, Hx Hyperthyroidism, Hx Hypothyroidism Renal/ Medical History: Denies: Hx End Stage Renal Disease, Hx Peritoneal Dialysis Malignancy Medical History: Reports Hx Lymphoma - T-cell GI Medical History: Denies: Hx Cirrhosis, Hx Crohn's Disease, Hx Gastroesophageal Reflux Disease, Hx Hiatal Hernia, Hx Ulcerative Colitis Musculoskeletal Medical History: Denies Hx Arthritis, Denies Hx Fibromyalgia, Denies Hx Gout, Reports Hx Musculoskeletal Trauma Skin Medical History: Denies Hx Eczema, Denies Hx Psoriasis Psychiatric Medical History: Reports: Hx Bipolar Disorder, Hx Depression Past Surgical History: Reports: Hx Kidney (Renal Surgery) - unilateral left adrenalectomy 08/23, Hx Orthopedic Surgery - plate/screws in toe, Other - Left adrenalectomy - Immunizations Hx Diphtheria, Pertussis, Tetanus Vaccination: Yes <DIANNE MILLS - Last Filed: 02/05/20 08:20> Review of Systems <DIANNE MILLS - Last Filed: 02/05/20 08:20> - Review of Systems Notes: REVIEW OF SYSTEMS: CONSTITUTIONAL : Denies recent illness. Denies recent unintentional weight l oss. Denies fever, chills, or sweats. EENT: Denies eye, ear, throat, or mouth pain, discharge, or symptoms. Denies nasal or sinus congestion. CARDIOVASCULAR: Denies chest pain. RESPIRATORY: Denies shortness of breath, cough, congestion, difficulty breathing, or wheezing. GASTROINTESTINAL: Denies nausea, vomiting, and diarrhea. Denies abdominal pain. Denies constipation. GENITOURINARY: Denies difficulty urinating, burning, blood in urine, urgency or frequency. MUSCULOSKELETAL: Denies neck and back pain. See HPI. SKIN: Denies rash, itchiness, or lesions HEMATOLOGIC : Denies easy bruising or bleeding. LYMPHATIC: Denies swollen, painful, enlarged glands. NEUROLOGICAL: Denies no numbness or tingling denies weakness. Denies headache. Denies altered mental status. Denies alteration in speech. PSYCHIATRIC: Denies stress, anxiety, alteration in sleep patterns, or depression. All other systems reviewed and negative. (DIANNE MILLS) Physical Exam <DIANNE MILLS - Last Filed: 02/05/20 08:20> - Vital signs Vitals: Temp Pulse Resp BP Pulse Ox 98.5 F 98 16 143/68 H 100 02/04/20 22:17 02/04/20 22:17 02/04/20 22:17 02/04/20 22:17 02/04/20 22:17 - Notes Notes: PHYSICAL EXAMINATION: GENERAL: Appears well, healthy, well-nourished, no acute distress. HEAD: Normocephalic, atraumatic. EYES: PERRL, conjunctiva normal, all extraocular movements intact, sclera nonicteric ENT: Moist mucous membranes. NECK: Supple, no noticeable swelling, redness, rash. Normal range of motion. LUNGS: Equal breath sounds bilaterally and clear to auscultation. No wheezes rales or rhonchi. CARDIOVASCULAR: S1-S2, regular rate, regular rhythm. Radial pulses 2+, normal. ABDOMEN: Normoactive bowel sounds. Soft, nontender, no guarding, no rebound tenderness, and no masses palpated. EXTREMITIES: Normal strength and range of motion, no pitting or edema. No cyanosis. Mildly tender right anterior, medial thigh, just above the patella. NEUROLOGICAL: Moves all extremities upon command. Strength 5/5 in all extremities. PSYCH: Normal mood, normal affect. SKIN: Warm, dry. No rash, lesions, ulcerations noted. Normal skin turgor. (DIANNE MILLS) Course <DIANNE MILLS - Last Filed: 02/05/20 08:20> - Laboratory Result Diagrams: 02/05/20 08:27 <MELISA SOLARES - Last Filed: 02/05/20 09:50> - Re-evaluation Re-evalutation: 02/05/20 08:20 Bedside handoff report given to AMITA Maciel. (DIANNE MILLS) 02/05/20 09:40 Patient's lower extremity ultrasound shows no DVT or SVT or additional abnormal findings. Sodium is 132.7. I discussed these findings with the patient. I recommend he follow-up with his primary care provider for follow-up of his leg pain. I do not suspect that his decreased sodium is related to his symptoms but he recommend that he follow-up with his primary care provider for further evaluation. He does have an appointment with his oncologist on the of t his . I recommend he brings this up to his oncologist. I also discussed return precautions to the emergency department. Patient acknowledges and verbalizes understanding of instructions and plan. All questions answered (MELISA SOLARES) - Vital Signs Vital signs: Temp Pulse Resp BP Pulse Ox 98.5 F 105 H 16 131/78 H 99 02/05/20 07:53 02/05/20 07:53 02/05/20 07:53 02/05/20 07:53 02/05/20 07:53 - Laboratory Laboratory results interpreted by me: 02/05/20 08:27 Sodium 132.7 L Creatine Kinase 20 L Discharge <DIANNE MILLS - Last Filed: 02/05/20 08:20> <MELISA SOLARES - Last Filed: 02/05/20 09:50> - Discharge Clinical Impression: Hyponatremia Leg pain Qualifiers: Laterality: right Qualified Code(s): M79.604 - Pain in right leg Condition: Stable Disposition: HOME, SELF-CARE Instructions: Leg Pain Nonspecific ([facility]) Additional Instructions: Please follow-up with your primary care provider as soon as possible. Please also keep that appointment with your oncologist. Will need to follow-up on the low sodium and the leg pain. Return to the emergency department if you have worsening symptoms or development of new symptoms. Referrals: RO PINON PA-C [ALLIED HEALTH PROFESSIONAL] - Follow up as needed
[2020-02-05 08:03] VITALS: BP 131/78
[2020-02-05] MEDS ORDERED: HYDROCODONE/ACETAMINOPHEN 5-325 MG TABLET PO ONE (08:20)
[2020-02-05 09:00] LABS: ALBUMIN 4.2 g/dL (3.5-5.0); ALKALINE PHOSPHATASE 90 U/L (38-126); ANION GAP 7 (5-19); ASPARTATE AMINO TRANSFERASE 49 U/L (17-59); BILIRUBIN,TOTAL 0.6 mg/dL (0.2-1.3); BLOOD UREA NITROGEN 19 mg/dL (7-20); CALCIUM 9.2 mg/dL (8.4-10.2); CARBON DIOXIDE 27 mmol/L (22-30); CHLORIDE 99 mmol/L (98-107); CREATINE KINASE 20 U/L (55-170); GLUCOSE 87 mg/dL (75-110); POTASSIUM 4.4 mmol/L (3.6-5.0); TOTAL PROTEIN 7.4 g/dL (6.3-8.2)
--- NOTE | 2020-02-05 09:37 | RADIOLOGY REPORT (SQ) ---
EXAM DESCRIPTION: VENOUS UNILATERAL LOWER IMAGES COMPLETED DATE/TIME: 02/05/2020 9:28 am REASON FOR STUDY: RLE pain COMPARISON: None. TECHNIQUE: Dynamic and static benitez scale and color images acquired of the right leg venous system. S elected spectral images acquired with additional compression and augmentation maneuvers. The contrala teral common femoral vein and saphenofemoral junction were also imaged. Images stored on PACS. LIMITATIONS: None. FINDINGS: RIGHT COMMON FEMORAL: Normal phasicity, compression and augmentation. No visualized echogenic material on g ray scale. No defects on color images. FEMORAL: Normal compression and augmentation. No visualized echogenic material on benitez scale. No defe cts on color images. POPLITEAL: Normal compression, augmentation. No visualized echogenic material on benitez scale. No defec ts on color images. CALF VESSELS: Normal compression, augmentation. No visualized echogenic material on benitez scale. No de fects on color images. GSV and SSV: Normal compression, augmentation. No visualized echogenic material on benitez scale. No def ects on color images. ANY DEEP VENOUS INSUFFICIENCY: Not evaluated. ANY EVIDENCE OF POPLITEAL CYST: No. OTHER: No other significant finding. LEFT COMMON FEMORAL VEIN AND SAPHENOFEMORAL JUNCTION: Normal phasicity, compression and augmentation. No visualized echogenic material on benitez scale. No de fects on color images. IMPRESSION: NO EVIDENCE OF DVT OR SVT IN THE RIGHT LEG. TECHNICAL DOCUMENTATION: JOB ID: [id number] 2010 [employer]- All Rights Reserved Reading location - IP/workstation name: [email or web address]
== END 2020-02-05 10:00 | disposition home or self-care (01) ==
LOC: ER 22:04
DX: M79.651 Pain in right thigh (principal); E87.1 Hypo-osmolality and hyponatremia; R25.2 Cramp and spasm; I10 Essential (primary) hypertension; J44.9 Chronic obstructive pulmonary disease, unspecified; C85.90 Non-Hodgkin lymphoma, unspecified, unspecified site; Z79.899 Other long term (current) drug therapy; Z72.0 Tobacco use
CPT/HCPCS: 36415; 80053; 82550; 83735; 93971; 99283

== ENCOUNTER → 2020-02-24 | Outpatient (CLI) | payer MEDICAID ==
--- NOTE | 2020-02-24 12:35 | RADIOLOGY REPORT (SQ) ---
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 TECHNIQUE: Multiplanar imaging includes noncontrasted T1, T2, FLAIR, diffusion with ADC map and post gadolinium contrast T1 sequences. Images stored on PACS. CONTRAST TYPE AND DOSE: 10 mL Prohance. RENAL FUNCTION: Not indicated. ACR Type II contrast agent associated with few, if any, unconfounded cases of NSF LIMITATIONS: None. FINDINGS: ANATOMY: No anomalies. Normal vascular flow voids. Pituitary fossa normal. CSF SPACES: Normal in size and contour. No hemorrhage. CEREBRUM: Sulci and gyri normal in size and contour. No evidence of hemorrhage, mass, or extraaxial f luid collection. No abnormal enhancement post contrast. POSTERIOR FOSSA: No signal alteration. No hemorrhage. No edema, masses, or mass effect. Internal anurag tory canals, cerebellopontine angles, mastoids normal. No enhancing lesions. No abnormal enhancement post contrast. DIFFUSION IMAGING: Negative for acute or subacute infarction. ORBITS: No masses. Globes normal. PARANASAL SINUSES: No fluid levels. Mucosa normal. OTHER: No other significant finding. IMPRESSION: No evidence of metastatic disease. EVIDENCE OF ACUTE STROKE: NO. TECHNICAL DOCUMENTATION: JOB ID: [id number] 2010 [employer]- All Rights Reserved Reading location - IP/workstation name: [email or web address]
== END ==
LOC: RAD 09:08
PROVIDERS: ATTEND Internal Medicine
DX: C84.48 Peripheral T-cell lymphoma, not elsewhere classified, lymph nodes of multiple sites (principal)
CPT/HCPCS: 70553; A9576

== ENCOUNTER → 2020-03-22 | Outpatient (CLI) | payer MEDICAID ==
--- NOTE | 2020-03-22 15:56 | RADIOLOGY REPORT (SQ) ---
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 RADIONUCLIDE AND DOSE: 10.2 mCi F18 FDG The route of agent administration: Intravenous FASTING BLOOD SUGAR: 97 mg/dl CONTRAST TYPE AND DOSE: No CT contrast given. TECHNIQUE: Blood glucose level was verified. Above dose of FDG was injected intravenously. 2-D seg mented attenuation correction images were obtained from the base of the skull to the midthighs. Nonc ontrast CT images were obtained for attenuation correction and fusion with emission images. CT image s were performed without oral or intravenous contrast and are not sensitive for parenchymal lesions. A series of overlapping emission PET images were obtained. Images reviewed and manipulated at [facility] work station by the radiologist. Images stored on PACS. LIMITATIONS: None. FINDINGS: HEAD AND NECK: No areas of abnormal metabolic activity in the soft tissues of the head and neck. CHEST: The spiculated nodular opacity in the left upper lobe (image 81 of series 3) is unchanged). T he ground-glass and nodular opacities scattered throughout the right upper and right lower lobes have increased from the 01/13/2020 CT and some demonstrate varying degrees of mild elevated FDG uptake wit h maximum SUVs that measure up to 2.5. The axillary lymph nodes have decreased in size from the prio r CT ; for reference the left axillary lymph node on image 71 of series 3 measures 8 mm in short axis diameter compared to 10 mm on the prior CT. ABDOMEN AND PELVIS: The liver demonstrates homogeneous FDG uptake with an average SUV of 2.0. The sp doc remains enlarged however it no longer demonstrates diffuse avid FDG uptake. There is expected ph ysiologic activity throughout the gastrointestinal and genitourinary tracts. There no areas of abnor mal metabolic activity in the abdomen and pelvis. PROXIMAL LOWER EXTREMITIES: The bilateral superficial inguinal lymph nodes have continued to decreas e in size and demonstrate no abnormal FDG uptake ; for reference the left superficial inguinal lymph node on image 233 of series 3 measures 8 mm in short axis diameter compared to 11 mm on the prior CT. BONES: No areas of abnormal metabolic activity in the skeleton. ADDITIONAL CT FINDINGS: No other acute findings on CT. OTHER: No other findings. IMPRESSION: 1. Multifocal ground-glass and nodular opacities scattered throughout the right upper a nd right lower lobes that have increased from 01/13/2028; some of the opacities demonstrate mild eleva valerie FDG uptake with maximum SUVs that measure up to 2.5. The opacities and nonspecific and different ial considerations include infectious, malignant and inflammatory etiologies. A follow-up CT in 3 mo nt is recommended. 2. The spleen remains enlarged however it no longer demonstrates diffuse avid FDG uptake. There is no FDG avid adenopathy. TECHNICAL DOCUMENTATION: JOB ID: [id number] 2010 [employer]- All Rights Reserved Reading location - IP/workstation name: [email or web address]
== END ==
LOC: RAD 08:12
PROVIDERS: ATTEND Physician Assistant Medical
DX: C84.48 Peripheral T-cell lymphoma, not elsewhere classified, lymph nodes of multiple sites (principal)
CPT/HCPCS: 78815; A9552

== ENCOUNTER 2020-05-28 16:14 | Emergency (ER) | payer MEDICAID ==
[2020-05-28 16:55] LABS: ABSOLUTE LYMPHOCYTES (AUTO) 0.9 10^3/uL (0.5-4.7); ABSOLUTE MONOCYTES (AUTO) 0.5 10^3/uL (0.1-1.4); ABSOLUTE NEUT (AUTO) 3.4 10^3/uL (1.7-8.2); BASOPHILS % (AUTO) 0.4 % (0-2); HEMATOCRIT 39.2 % (37.9-51.0); LYMPHOCYTES % (AUTO) 19.2 % (13-45); MEAN CORPUSCULAR HEMOGLOBIN 32.7 pg (27.0-33.4); MEAN CORPUSCULAR HGB CONC 35.8 g/dL (32.0-36.0); MEAN CORPUSCULAR VOLUME 91 fl (80-97); MONOCYTES % (AUTO) 10.1 % (3-13); PLATELET COUNT 182 10^3/uL (150-450); RED BLOOD COUNT 4.29 10^6/uL (4.35-5.55); RED CELL DISTRIBUTION WIDTH 17.8 % (11.5-14.0); SEGMENTED NEUTROPHILS % (AUTO) 70.3 % (42-78); TOTAL CELLS COUNTED % (AUTO) 100 %; WHITE BLOOD COUNT 4.9 10^3/uL (4.0-10.5)
--- NOTE | 2020-05-28 17:01 | ER Document Report ---
ED General - General Chief Complaint: Shortness Of Breath Stated Complaint: WEAKNESS Primary Care Provider: RO PINON PA-C [Primary Care Provider] - Follow up as needed Notes: Patient is a 54-year-old white male with a history of COPD, T-cell lymphoma and hypertension who presents to the emergency department with a chief complaint of shortness of breath. The patient reports that he was walking his dog today when he began to feel more short of breath. He states he went home took some breathing treatments x2 via his nebulizer without any significant improvement. He states that he had drank 2, 24 ounce iceOpenGov beers today. Reports he is a non-smoker but his smokes every day around him. He states he has chronic left upper quadrant pain from a prior adrenal gland surgery that radiates into the chest. Reports this is not any better or worse than normal. He states upon arrival here in the ED he feels well. He reports that his blood pressure is normally high but has been untreated and he is unsure why. He states he is not significantly short of breath here. Reports this is happened in the past with trying to exercise or have any exertion specifically walking his dog. He sees Dr. David giang for oncology and is due to have CT scan of the abdomen and pelvis next week. He states he was told that he is currently in remission but is due to receive further chemo every 3 weeks. Denies history of DVT or PE. Denies any lower extremity pain or swelling. No cough or hemoptysis. No history of recent travel, recent surgery or recent mobilization. No reported hormone replacement therapies. Does not smoke. Denies any known contact with anyone sick or with COVID-19. No fever. TRAVEL OUTSIDE OF THE [place] IN LAST 30 DAYS: No - Related Data Allergies/Adverse Reactions: No Known Allergies Allergy (Verified 02/03/20 23:56) Past Medical History - Social History Smoking Status: Current Every Day Smoker Frequency of alcohol use: Occasional Drug Abuse: None Family History: Reviewed & Not Pertinent, Malignancy - Past Medical History Cardiac Medical History: Reports: Hx Hypertension Denies: Hx Atrial Fibrillation, Hx Coronary Artery Disease, Hx DVT, Hx Heart Attack, Hx Hypercholesterolemia, Hx Peripheral Vascular Disease, Hx Pulmonary Embolism Pulmonary Medical History: Reports: Hx Asthma, Hx Bronchitis, Hx COPD, Hx Pneumonia, Hx Respiratory Failure Neurological Medical History: Denies: Hx Seizures Endocrine Medical History: Denies: Hx Diabetes Mellitus Type 1, Hx Diabetes Mellitus Type 2, Hx Hyperthyroidism, Hx Hypothyroidism Renal/ Medical History: Denies: Hx End Stage Renal Disease, Hx Peritoneal Dialysis Malignancy Medical History: Reports Hx Lymphoma - T-cell GI Medical History: Denies: Hx Cirrhosis, Hx Crohn's Disease, Hx Gastroesophageal Reflux Disease, Hx Hiatal Hernia, Hx Ulcerative Colitis Musculoskeletal Medical History: Denies Hx Arthritis, Denies Hx Fibromyalgia, Denies Hx Gout, Reports Hx Musculoskeletal Trauma Skin Medical History: Denies Hx Eczema, Denies Hx Psoriasis Psychiatric Medical History: Reports: Hx Bipolar Disorder, Hx Depression Past Surgical History: Reports: Hx Kidney (Renal Surgery) - unilateral left adrenalectomy 08/23, Hx Orthopedic Surgery - plate/screws in toe, Other - Left adrenalectomy - Immunizations Hx Diphtheria, Pertussis, Tetanus Vaccination: Yes Review of Systems - Review of Systems Constitutional: denies: Fever EENT: denies: Nose congestion Cardiovascular: denies: Syncope Respiratory: denies: Hemoptysis Gastrointestinal: denies: Blood streaked bowels Genitourinary: denies: Frequency Male Genitourinary: denies: Testicular pain Musculoskeletal: denies: Muscle pain Skin: denies: Lesions Hematologic/Lymphatic: denies: Blood clots Neurological/Psychological: denies: Loss of power Physical Exam - Vital signs Vitals: Pulse Ox 98 05/28/20 16:21 - General General appearance: Appears well, Alert In distress: None - HEENT Head: Normocephalic, Atraumatic Eyes: Normal Conjunctiva: Normal Pupils: PERRL Mucous membranes: Normal, Moist Neck: Normal, Supple - Respiratory Respiratory status: No respiratory distress Chest status: Nontender Breath sounds: Normal Chest palpation: Normal - Cardiovascular Rhythm: Tachycardia Heart sounds: Normal auscultation Murmur: No - Abdominal Inspection: Other - Healed incision across the upper abdomen Distension: No distension Bowel sounds: Normal Tenderness: Tender - Left upper quadrant - Extremities General upper extremity: Normal inspection, Nontender, Normal color, Normal ROM, Normal temperature General lower extremity: Normal inspection, Nontender, Normal color, Normal ROM, Normal temperature, Normal weight bearing. No: Emi's sign - Neurological Neuro grossly intact: Yes Cognition: Normal Orientation: AAOx4 - Psychological Associated symptoms: Circumferential speech - Skin Skin Temperature: Warm Skin Moisture: Dry Skin Color: Normal Course - Re-evaluation Re-evalutation: 05/28/20 20:00 EKG: Sinus tachycardia at 109 bpm. Normal axis. Normal intervals. No STEMI. Interpreted by myself in conjunction with ED attending. Patient reports a history of chronic resting tachycardia. Review of historical vital signs concur. Patient is not having any new chest pain. Doubt any cardiac etiology. Initial troponin was negative. EKG unchanged from prior with exception of rate from the most previous EKG. CTA of the chest and CT scan with contrast of the abdomen were negative for any acute process however the pelvis did show some lymphadenopathy in the left inguinal region per radiologist report. This was communicated with the patient and reviewed in combination with his laboratory studies. His lungs are clear to auscultation here. He is in no distress. He took his breathing treatments at home and states that he was feeling fine but his forced him to come with EMS. He states she is forced him in the past and he was very unhappy about it. He states he will call Dr. David giang on Saturday to discuss the results of CAT scan with him. Discussed with him the importance of outpatient follow-up and advised he return here or any ER i mmediately with any new, persistent or worsening symptoms. He verbalized understood and agreed. 05/28/20 20:00 - Vital Signs Vital signs: Temp Pulse Resp BP Pulse Ox 98.1 F 14 112/46 L 100 05/28/20 16:31 05/28/20 18:02 05/28/20 18:02 05/28/20 18:02 - Laboratory Result Diagrams: 05/28/20 16:32 05/28/20 16:32 Laboratory results interpreted by me: 05/28/20 05/28/20 05/28/20 16:32 16:32 16:32 RBC 4.29 L RDW 17.8 H Carbon Dioxide 18 L Glucose 127 H AST 72 H ALT 52 H Creatine Kinase 37 L NT-Pro-B Natriuret Pep 168 H Discharge - Discharge Clinical Impression: History of COPD, Shortness of breath, History of lymphoma Condition: Stable Disposition: HOME, SELF-CARE Instructions: Dyspnea, Nonspecific ([facility]) Additional Instructions: We discussed the findings of left inguinal lymphadenopathy today on your CAT scan of the pelvis. Please communicate this with your oncologist on Saturday. Please follow-up Beau as discussed and return here or any ER immediately with any new, persistent or worsening symptoms. Referrals: RO PINON PA-C [Primary Care Provider] - Follow up as needed
[2020-05-28 17:08] LABS: ALBUMIN 4.9 g/dL (3.5-5.0); ALKALINE PHOSPHATASE 108 U/L (38-126); ANION GAP 17 (5-19); ASPARTATE AMINO TRANSFERASE 72 U/L (17-59); BILIRUBIN,DIRECT 0.4 mg/dL (0.0-0.4); BILIRUBIN,TOTAL 0.7 mg/dL (0.2-1.3); BLOOD UREA NITROGEN 7 mg/dL (7-20); CALCIUM 9.6 mg/dL (8.4-10.2); CARBON DIOXIDE 18 mmol/L (22-30); CHLORIDE 105 mmol/L (98-107); CREATINE KINASE 37 U/L (55-170); GLUCOSE 127 mg/dL (75-110); POTASSIUM 4.5 mmol/L (3.6-5.0); TOTAL PROTEIN 8.2 g/dL (6.3-8.2)
[2020-05-28 17:20] LABS: CREATINE KINASE MB 1.12 ng/mL (<4.55)
[2020-05-28 17:21] LABS: INTERNATIONAL RATION (INR) 0.92; PROTHROMBIN TIME 12.5 SEC (11.4-15.4)
[2020-05-28 17:22] LABS: PARTIAL THROMBOPLASTIN TIME 30.7 SEC (23.5-35.8); TROPONIN I < 0.012 ng/mL
--- NOTE | 2020-05-28 19:49 | RADIOLOGY REPORT (SQ) ---
EXAM DESCRIPTION: CTA CHEST; CT ABD/PELVIS WITH IV ONLY IMAGES COMPLETED DATE/TIME: 05/28/2020 7:08 pm REASON FOR STUDY: sob, abd pain h/o lymphoma CONTRAST TYPE AND DOSE: contrast/concentration: Isovue 350.00 mmol/ml; Total Contrast Delivered: 84. 0 ml; Total Saline Delivered: 78.0 ml RENAL FUNCTION: BUN 7; creatinine 0.69 COMPARISON: None. TECHNIQUE: CT scan of the chest performed using helical scanning technique with dynamic intravenous contrast injection. Images reviewed with lung, soft tissue and bone windows. Reconstructed coronal a nd sagittal MPR images reviewed. All images stored on PACS. All CT scanners at this facility use dose modulation, iterative reconstruction, and/or weight based d osing when appropriate to reduce radiation dose to as low as reasonably achievable (ALARA). [facility]: Dose Right [facility]: CareDose [facility]: Dose Right [facility]: Teradose 4D [facility]: [employer] RADIATION DOSE: CT Rad equipment meets quality standard of care and radiation dose reduction techniq ues were employed. CTDIvol: 10.1 - 14.3 mGy. DLP: 1632 mGy-cm.. LIMITATIONS: None. FINDINGS: AXILLAE: No adenopathy. CHEST WALL: No masses. No subcutaneous air. LUNGS: No nodules or masses. No pneumothorax. No infiltrates. PLEURA: No effusions. No calcifications. THYROID: No masses or significant asymmetry. HILAR AND MEDIASTINAL STRUCTURES: No identified masses or abnormal nodes. AORTA AND GREAT VESSELS: No aneurysm. No dissection. PULMONARY ARTERIES: No filling defects to suggest pulmonary embolus. HEART: No pericardial effusion. HARDWARE AND LIFELINES: None. BONES: No significant finding. OTHER: No other significant finding. IMPRESSION: No pulmonary embolus. COMPARISON: None. RADIATION DOSE: CT Rad equipment meets quality standard of care and radiation dose reduction techniq ues were employed. CTDIvol: 10.1 - 14.3 mGy. DLP: 1632 mGy-cm.mGy. TECHNIQUE: CT scan of the abdomen and pelvis performed with intravenous and oral contrast using stephanie mainor scanning technique with dynamic intravenous contrast injection. Images reviewed with lung, soft tissue and bone windows. Reconstructed coronal and sagittal MPR images reviewed. Delayed images for evaluation of the urinary system also acquired and evaluated. All images stored on PACS. All CT scanners at this facility use dose modulation, iterative reconstruction, and/or weight based d osing when appropriate to reduce radiation dose to as low as reasonably achievable (ALARA). [facility]: Dose Right [facility]: SureCare [facility]: Dose Right [facility]: Teradose 4D [facility]: [employer] FINDINGS: LIVER: Normal size. No masses. No dilated ducts. SPLEEN: Normal size. No focal lesions. PANCREAS: No masses. No significant calcifications. No adjacent inflammation or peripancreatic flui d collections. Pancreatic duct not dilated. GALLBLADDER: No identified stones by CT criteria. No inflammatory changes to suggest cholecystitis. ADRENAL GLANDS: The left adrenal gland is surgically absent. The right adrenal gland is normal. RIGHT KIDNEY AND URETER: No solid masses. No significant calcification. No hydronephrosis or hydroure ter. LEFT KIDNEY AND URETER: No solid masses. No significant calcification. No hydronephrosis or hydrouret er. AORTA AND VESSELS: No aneurysm. No dissection. Renal arteries, SMA, celiac without stenosis. RETROPERITONEUM: No retroperitoneal adenopathy, hemorrhage or masses. LARGE AND SMALL BOWEL: No dilatation. No masses. No wall thickening. APPENDIX: Normal. ABDOMINAL WALL: No hernia or masses. PERITONEAL CAVITY: No free air. No free fluid. No peritoneal implants or masses. There is a promin ent enhancing soft tissue nodule in the region of the left inguinal canal (coronal image 34) measurin g approximately 2 cm CC by 1.7 cm TR x 1.5 cm AP. A prominent left inguinal node below the inguinal ligament is also present measuring up to 3.3 cm in long axis (coronal image 33). PELVIS: No mass or free fluid. Normal bladder. BONES: No significant or acute findings. OTHER: No other significant finding. IMPRESSION: No acute inflammatory changes in the abdomen or pelvis. Moderately prominent left inguinal lymph nodes, as described above. These are nonspecific and may be reactive or inflammatory. Given provided history of lymphoma, recommend correlation with laboratory values and close clinical follow-up. TECHNICAL DOCUMENTATION: JOB ID: [id number] Quality ID # 436: Final reports with documentation of one or more dose reduction techniques (e.g., Au tomated exposure control, adjustment of the mA and/or kV according to patient size, use of iterative reconstruction technique) 2010 [employer]- All Rights Reserved Reading location - IP/workstation name: [email or web address]
--- NOTE | 2020-05-28 19:49 | RADIOLOGY REPORT (SQ) ---
EXAM DESCRIPTION: CTA CHEST; CT ABD/PELVIS WITH IV ONLY IMAGES COMPLETED DATE/TIME: 05/28/2020 7:08 pm REASON FOR STUDY: sob, abd pain h/o lymphoma CONTRAST TYPE AND DOSE: contrast/concentration: Isovue 350.00 mmol/ml; Total Contrast Delivered: 84. 0 ml; Total Saline Delivered: 78.0 ml RENAL FUNCTION: BUN 7; creatinine 0.69 COMPARISON: None. TECHNIQUE: CT scan of the chest performed using helical scanning technique with dynamic intravenous contrast injection. Images reviewed with lung, soft tissue and bone windows. Reconstructed coronal a nd sagittal MPR images reviewed. All images stored on PACS. All CT scanners at this facility use dose modulation, iterative reconstruction, and/or weight based d osing when appropriate to reduce radiation dose to as low as reasonably achievable (ALARA). [facility]: Dose Right [facility]: CareDose [facility]: Dose Right [facility]: Teradose 4D [facility]: [employer] RADIATION DOSE: CT Rad equipment meets quality standard of care and radiation dose reduction techniq ues were employed. CTDIvol: 10.1 - 14.3 mGy. DLP: 1632 mGy-cm.. LIMITATIONS: None. FINDINGS: AXILLAE: No adenopathy. CHEST WALL: No masses. No subcutaneous air. LUNGS: No nodules or masses. No pneumothorax. No infiltrates. PLEURA: No effusions. No calcifications. THYROID: No masses or significant asymmetry. HILAR AND MEDIASTINAL STRUCTURES: No identified masses or abnormal nodes. AORTA AND GREAT VESSELS: No aneurysm. No dissection. PULMONARY ARTERIES: No filling defects to suggest pulmonary embolus. HEART: No pericardial effusion. HARDWARE AND LIFELINES: None. BONES: No significant finding. OTHER: No other significant finding. IMPRESSION: No pulmonary embolus. COMPARISON: None. RADIATION DOSE: CT Rad equipment meets quality standard of care and radiation dose reduction techniq ues were employed. CTDIvol: 10.1 - 14.3 mGy. DLP: 1632 mGy-cm.mGy. TECHNIQUE: CT scan of the abdomen and pelvis performed with intravenous and oral contrast using stephanie mainor scanning technique with dynamic intravenous contrast injection. Images reviewed with lung, soft tissue and bone windows. Reconstructed coronal and sagittal MPR images reviewed. Delayed images for evaluation of the urinary system also acquired and evaluated. All images stored on PACS. All CT scanners at this facility use dose modulation, iterative reconstruction, and/or weight based d osing when appropriate to reduce radiation dose to as low as reasonably achievable (ALARA). [facility]: Dose Right [facility]: SureCare [facility]: Dose Right [facility]: Teradose 4D [facility]: [employer] FINDINGS: LIVER: Normal size. No masses. No dilated ducts. SPLEEN: Normal size. No focal lesions. PANCREAS: No masses. No significant calcifications. No adjacent inflammation or peripancreatic flui d collections. Pancreatic duct not dilated. GALLBLADDER: No identified stones by CT criteria. No inflammatory changes to suggest cholecystitis. ADRENAL GLANDS: The left adrenal gland is surgically absent. The right adrenal gland is normal. RIGHT KIDNEY AND URETER: No solid masses. No significant calcification. No hydronephrosis or hydroure ter. LEFT KIDNEY AND URETER: No solid masses. No significant calcification. No hydronephrosis or hydrouret er. AORTA AND VESSELS: No aneurysm. No dissection. Renal arteries, SMA, celiac without stenosis. RETROPERITONEUM: No retroperitoneal adenopathy, hemorrhage or masses. LARGE AND SMALL BOWEL: No dilatation. No masses. No wall thickening. APPENDIX: Normal. ABDOMINAL WALL: No hernia or masses. PERITONEAL CAVITY: No free air. No free fluid. No peritoneal implants or masses. There is a promin ent enhancing soft tissue nodule in the region of the left inguinal canal (coronal image 34) measurin g approximately 2 cm CC by 1.7 cm TR x 1.5 cm AP. A prominent left inguinal node below the inguinal ligament is also present measuring up to 3.3 cm in long axis (coronal image 33). PELVIS: No mass or free fluid. Normal bladder. BONES: No significant or acute findings. OTHER: No other significant finding. IMPRESSION: No acute inflammatory changes in the abdomen or pelvis. Moderately prominent left inguinal lymph nodes, as described above. These are nonspecific and may be reactive or inflammatory. Given provided history of lymphoma, recommend correlation with laboratory values and close clinical follow-up. TECHNICAL DOCUMENTATION: JOB ID: [id number] Quality ID # 436: Final reports with documentation of one or more dose reduction techniques (e.g., Au tomated exposure control, adjustment of the mA and/or kV according to patient size, use of iterative reconstruction technique) 2010 [employer]- All Rights Reserved Reading location - IP/workstation name: [email or web address]
[2020-05-28 20:12] VITALS: BP 152/94
--- NOTE | 2020-05-29 19:21 | EKG REPORT ---
SEVERITY:- OTHERWISE NORMAL ECG - SINUS TACHYCARDIA : Confirmed by: Matt Trujillo MD 29-May-2020 19:20:42
== END 2020-05-28 20:38 | disposition home or self-care (01) ==
LOC: ER 16:14
DX: J44.9 Chronic obstructive pulmonary disease, unspecified (principal); I10 Essential (primary) hypertension; R06.02 Shortness of breath; R00.0 Tachycardia, unspecified; R59.0 Localized enlarged lymph nodes; E89.6 Postprocedural adrenocortical (-medullary) hypofunction; R10.812 Left upper quadrant abdominal tenderness; R10.12 Left upper quadrant pain; G89.29 Other chronic pain; Z85.72 Personal history of non-Hodgkin lymphomas; Z79.899 Other long term (current) drug therapy; Z87.01 Personal history of pneumonia (recurrent)
CPT/HCPCS: 36415; 71275; 74177; 80053; 82550; 82553; 83880; 84484; 85025; 85610; 85730; 93005; 93010; 99285

== ENCOUNTER → 2020-06-07 | Outpatient (CLI) | payer MEDICAID ==
--- NOTE | 2020-06-08 17:10 | RADIOLOGY REPORT (SQ) ---
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 Right adr enalectomy and axillary lymph node biopsy. Peripheral T-cell lymphoma currently receiving chemothera py. COMPARISON: PET CT, 03/12/2020. RADIONUCLIDE AND DOSE: mCi F18 FDG The route of agent administration: Intravenous FASTING BLOOD SUGAR: mg/dl CONTRAST TYPE AND DOSE: No CT contrast given. TECHNIQUE: Blood glucose level was verified. Above dose of FDG was injected intravenously. 2-D seg mented attenuation correction images were obtained from the base of the skull to the midthighs. Nonc ontrast CT images were obtained for attenuation correction and fusion with emission images. CT image s were performed without oral or intravenous contrast and are not sensitive for parenchymal lesions. A series of overlapping emission PET images were obtained. [facility] reviewed [facility] by the radiologist. Images stored on PACS. LIMITATIONS: None. FINDINGS: HEAD AND NECK: No areas of abnormal metabolic activity in the soft tissues of the head and neck. CHEST: No areas of abnormal metabolic activity in the chest. A spiculated nodule in the left upper l obe is stable from previous examination. This demonstrates no significant FDG activity however may b e below the threshold size for detection. Improved aeration in the right lung, consistent with resol denis infectious/ inflammatory process since prior. No focal consolidation or pleural effusion. No me diastinal lymphadenopathy. A left axillary lymph node measuring 8 mm is stable from prior. No new a denopathy. ABDOMEN AND PELVIS: No areas of abnormal metabolic activity in the abdomen or pelvis. Expected physi ologic activity is present in the genitourinary system and bowel. Background hepatic activity SUV 2. 6 PROXIMAL LOWER EXTREMITIES: Prominent bilateral inguinal lymph nodes are not metabolically active and are stable from prior PET. BONES: No abnormal metabolic activity in the visualized skeleton. ADDITIONAL CT FINDINGS: Moderate splenomegaly has decreased since prior, with spleen now measuring 12 .1 x 6 cm, previously 12.6 x 6.7 cm. Stable small adjacent splenules/lymph nodes in the upper abdome n an area of previous left adrenalectomy bed. OTHER: No other significant findings. IMPRESSION: 1. Improved appearance of the right upper and lower lobes, consistent with resolved infectious/inflam matory process. Stable pulmonary nodule in the left lung. No evidence of metabolically active lymph sonam in the chest, abdomen or pelvis. 2. Decreasing size of the spleen. Persistent [id number] splenomegaly. TECHNICAL DOCUMENTATION: JOB ID: [id number] 2010 [employer]- All Rights Reserved Reading location - IP/workstation name: [email or web address]
== END ==
LOC: RAD 08:20
PROVIDERS: ATTEND Internal Medicine
DX: C84.48 Peripheral T-cell lymphoma, not elsewhere classified, lymph nodes of multiple sites (principal); R91.1 Solitary pulmonary nodule; R16.1 Splenomegaly, not elsewhere classified
CPT/HCPCS: 78815; A9552

== ENCOUNTER → 2020-09-01 | Outpatient (CLI) | payer MEDICAID ==
--- NOTE | 2020-09-01 11:15 | RADIOLOGY REPORT (SQ) ---
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 Images reviewed with lung, soft tissue and bone windows. Reconstructed coronal a nd sagittal MPR images reviewed. All images stored on PACS. CT scan of the abdomen and pelvis performed with intravenous and without oral contrastusing helical s tobin technique with dynamic intravenous contrast injection. Images reviewed with lung, soft tissu e and bone windows. Reconstructed coronal and sagittal MPR images reviewed. Delayed images for eval uation of the urinary system also acquired and evaluated. All images stored on PACS. All CT scanners at this facility use dose modulation, iterative reconstruction, and/or weight based d osing when appropriate to reduce radiation dose to as low as reasonably achievable (ALARA). [facility]: Dose Right [facility]: CareDose [facility]: Dose Right [facility]: Teradose 4D [facility]: [employer] RADIATION DOSE: CT Rad equipment meets quality standard of care and radiation dose reduction techniq ues were employed. CTDIvol: 4.5 - 4.5 mGy. DLP: 635 mGy-cm. . LIMITATIONS: None. FINDINGS: CHEST: LUNGS AND PLEURA: Right middle lobe and right lower lobe scarring. No focal consolidation. No suspi cious nodule or mass. No pleural effusion. No pneumothorax. HILAR AND MEDIASTINAL STRUCTURES: No identified masses or abnormal nodes. HEART AND VASCULAR STRUCTURES: No aneurysm or dissection. No central pulmonary emboli. No pericardi al effusion. HARDWARE: Right upper extremity PICC appears to terminate in the coronary sinus. THYROID AND OTHER SOFT TISSUES: No masses. No adenopathy. BONES: Degenerative changes of the spine. No suspicious lytic or blastic osseous lesions. OTHER: Right axillary surgical clips. ABDOMEN AND PELVIS: LIVER: Hepatic steatosis. No focal mass. No intrahepatic biliary dilatation. SPLEEN: Normal size. No focal lesions. PANCREAS: No masses. No significant calcifications. No adjacent inflammation or peripancreatic fluid collections. Pancreatic duct not dilated. GALLBLADDER: No identified stones by CT criteria. No inflammatory changes to suggest cholecystitis. ADRENAL GLANDS: Status post left adrenalectomy. The right adrenal gland appears normal. RIGHT KIDNEY AND URETER: No solid masses. No significant calcification. No hydronephrosis or hydroure ter. LEFT KIDNEY AND URETER: No solid masses. No significant calcification. No hydronephrosis or hydrouret er. AORTA AND VESSELS: No aneurysm. No dissection. Renal arteries, SMA, celiac without stenosis. RETROPERITONEUM: No retroperitoneal adenopathy, hemorrhage or masses. BOWEL AND PERITONEAL CAVITY: No masses or inflammatory changes. No free fluid or peritoneal masses. APPENDIX: Not visualized. ABDOMINAL WALL: No masses. No hernias. Previously demonstrated mildly prominent left inguinal lymph nodes appear diminished in size on today's examination. PELVIS: No mass or free fluid. Normal bladder. BONES: Degenerative changes of the hips and spine. No suspicious lytic or blastic osseous lesions. OTHER: No other significant finding. IMPRESSION: 1. Presumed right upper extremity PICC terminates within the coronary sinus. Recommend repositioning. 2. No evidence of primary or metastatic neoplasm. 3. Stable chronic and incidental findings as detailed above. TECHNICAL DOCUMENTATION: JOB ID: [id number] Quality ID # 436: Final reports with documentation of one or more dose reduction techniques (e.g., Au tomated exposure control, adjustment of the mA and/or kV according to patient size, use of iterative reconstruction technique) 2010 [employer]- All Rights Reserved COMPARISON: 05/28/2020 CONTRAST TYPE AND DOSE: contrast/concentration: Isovue 350.00 mmol/ml; Total Contrast Delivered: 69. 0 ml; Total Saline Delivered: 65.0 ml Reading location - IP/workstation name: [email or web address]
== END ==
LOC: RAD 09:00
PROVIDERS: ATTEND Physician Assistant Medical
DX: C84.48 Peripheral T-cell lymphoma, not elsewhere classified, lymph nodes of multiple sites (principal)
CPT/HCPCS: 71260; 74177; 82565